=== PATIENT | female | born 1960 | race Caucasian/White ===

== ENCOUNTER 2017-03-31 10:45 | Emergency (ER) | payer MEDICARE, SELFPAY | END 2017-03-31 11:55 | disposition home or self-care (01) | PROVIDERS: Emergency Provider Nurse Practitioner Family; Family Provider Internal Medicine Adolescent Medicine; Visit Provider Nurse Practitioner Family | DX: J06.9 Acute upper respiratory infection, unspecified (principal); E11.9 Type 2 diabetes mellitus without complications; J45.909 Unspecified asthma, uncomplicated; E78.5 Hyperlipidemia, unspecified; I10 Essential (primary) hypertension; Z79.899 Other long term (current) drug therapy; Z87.891 Personal history of nicotine dependence; Z79.4 Long term (current) use of insulin; Z88.5 Allergy status to narcotic agent; Z91.010 Allergy to peanuts; Z91.013 Allergy to seafood | CPT/HCPCS: 87804; 87880; 99201 ==

== ENCOUNTER 2017-05-23 17:29 | Emergency (ER) | payer MEDICARE, MEDICAID, SELFPAY ==
--- NOTE | 2017-05-23 18:53 | XR_ITS ---
XR shoulder LT min 2V HISTORY: Post traumatic pain ITS.REASON: SLIPPED IN MED ORDERING PHYSICIAN: Erica Marroquin PATIENT AGE: 56 years COMPARISON: None FINDINGS: No fracture or dislocation. No lytic or blastic change. There is normal mineralization. The joint spaces are well-preserved. No significant degenerative/arthritic changes. No erosive changes evident. IMPRESSION: Negative, no acute finding
[2017-05-23 18:55] VITALS: BP 130/85; PULSE 91; RESP 18; TEMP 36.6; O2SAT 99; BMI 51.2
--- NOTE | 2017-05-23 19:18 | HMH.EDUTC ---
[facility] [place] Disposition Clinical Impression: Shoulder injury Qualifiers: Encounter type: initial encounter Laterality: left Qualified Code(s): S49.92XA - Unspecified injury of left shoulder and upper arm, initial encounter Disposition: Home, Self-Care Condition on Discharge: Good Instructions: How To Perform RICE (Rest, Ice, Compress, Elevate), DI for Shoulder Pain Additional Instructions: Continue to wear arm sling until you follow up with Dr Ram as advised in the [facility] today RICE as instructed Over the counter Motrin or Tylenol as needed for fever or pain Return if needed If you began to have numbness, tingling or uncontrollable pain or life threatening event go straight to ER Referrals: Clarence Ram MD [Primary Care Provider] - Topher Colón MD [Staff Physician] - Luis Armando Morris MD [Staff Physician] - Time of Disposition: 19:40 Medical Decision Making - Medical Records Medical records reviewed: Yes: I reviewed the patient's medical records. Vital Signs: 05/23/17 18:55 Temperature 97.8 F Temperature Source Temporal Artery Scan Pulse Rate [Right] 91 H Respiratory Rate 18 Blood Pressure [Right Arm] 130/85 Blood Pressure Mean [Right Arm] 100 Blood Pressure Source [Right Arm] Automatic Cuff Blood Pressure Position [Right Arm] Sitting 02 Sat by Pulse Oximetry 99 Oxygen Delivery Method Room Air Orders (Tests/Meds): ORDERS Category Date Time Status Shoulder XR left minimum 2 views [XR shoulder LT min 2V Exams 05/23/17 18:53 Taken ] Stat - Radiology Data #1 Image(s): Shoulder Image Reviewed: Yes I reviewed the patient's radiology image Preliminary Findings: No Fracture Seen No acute findings, will have Radiologist do official read and contact patient if any discrepancies - [place] Inquiry Pt receiving controlled substance: No [place] was queried for this patient: No [facility] [place] HPI - General Stated complaint: AO 05/23/17 Slipped, Inj to left shoulder Mode of Arrival: Ambulatory Source of Information: Patient Limitations: No Limitations Description of Symptoms (Recalled from Triage Doc. by RN): FELL IN MUD, HURT LEFT SHOULDER 1430 HEENT Symptoms (Recalled from RN notes): No Resp Symptoms (Recalled from RN notes): No Skin Symptoms (Recalled from RN notes): No MS Symptoms (Recalled from RN notes): Yes Functional Status (Recalled from RN notes): N - History of Present Illness Provider Complaint: Patient state that earlier today she slipped in the mud and she threw her arm up and now she is having pain in her left shoulder area State that she did not land on the shoulder just threw her arm in the air as she was falling and now she is having pain - Related Data Allergies Allergy/AdvReac Type Severity Reaction Status Date / Time hydromorphone [HYDROMORPHONE] Allergy Mild ITCHING OF Verified 05/23/17 19:00 FACE/NOSE morphine [MORPHINE] Allergy Mild SHAKING Verified 05/23/17 19:00 penicillin G [PENICILLIN G] Allergy Mild Verified 05/23/17 19:00 PEANUTS (FOOD) Allergy Intermediate ITCHING OF Uncoded 04/04/17 14:41 PALMS OF HANDS AND BOTTOM OF FEET FISH,CANNED AdvReac Mild NAUSEA/VOMI Uncoded 04/04/17 14:41 TING - Worker's Comp Is this a Worker's Comp case?: No [facility] History I have reviewed the patient's past medical history: Yes Medical History: Reports:: Diabetes Mellitus Type 2 - *Social History Alcohol Intake: never - Psychiatric History Expresses thoughts of harming self/others: None Suicide Plan Description: No Plan ROS Obtained: Yes All systems reviewed & no additional complaints Physical Exam - General General appearance: alert, in no apparent distress - Respiratory Respiratory exam: Present: normal lung sounds bilaterally. Absent: respiratory distress - Cardiovascular Cardiovascular exam: Present: regular rate, normal rhythm. Absent: JVD - Abdominal Exam Abdominal exam: Present: soft, normal bowel sounds. Absent: distentio
--- NOTE | 2017-05-23 19:29 | ED_ITS ---
[facility] [place] Disposition Clinical Impression: Shoulder injury Qualifiers: Encounter type: initial encounter Laterality: left Qualified Code(s): S49.92XA - Unspecified injury of left shoulder and upper arm, initial encounter Disposition: Home, Self-Care Condition on Discharge: Good Instructions: How To Perform RICE (Rest, Ice, Compress, Elevate), DI for Shoulder Pain Additional Instructions: Continue to wear arm sling until you follow up with Dr Ram as advised in the [facility] today RICE as instructed Over the counter Motrin or Tylenol as needed for fever or pain Return if needed If you began to have numbness, tingling or uncontrollable pain or life threatening event go straight to ER Referrals: Clarence Ram MD [Primary Care Provider] - Topher Colón MD [Staff Physician] - Luis Armando Morris MD [Staff Physician] - Time of Disposition: 19:40 Medical Decision Making - Medical Records Medical records reviewed: Yes: I reviewed the patient's medical records. Vital Signs: 05/23/17 18:55 Temperature 97.8 F Temperature Source Temporal Artery Scan Pulse Rate [Right] 91 H Respiratory Rate 18 Blood Pressure [Right Arm] 130/85 Blood Pressure Mean [Right Arm] 100 Blood Pressure Source [Right Arm] Automatic Cuff Blood Pressure Position [Right Arm] Sitting 02 Sat by Pulse Oximetry 99 Oxygen Delivery Method Room Air Orders (Tests/Meds): ORDERS Category Date Time Status Shoulder XR left minimum 2 views [XR shoulder LT min 2V Exams 05/23/17 18:53 Taken ] Stat - Radiology Data #1 Image(s): Shoulder Image Reviewed: Yes I reviewed the patient's radiology image Preliminary Findings: No Fracture Seen No acute findings, will have Radiologist do official read and contact patient if any discrepancies - [place] Inquiry Pt receiving controlled substance: No [place] was queried for this patient: No [facility] [place] HPI - General Stated complaint: AO 05/23/17 Slipped, Inj to left shoulder Mode of Arrival: Ambulatory Source of Information: Patient Limitations: No Limitations Description of Symptoms (Recalled from Triage Doc. by RN): FELL IN MUD, HURT LEFT SHOULDER 1430 HEENT Symptoms (Recalled from RN notes): No Resp Symptoms (Recalled from RN notes): No Skin Symptoms (Recalled from RN notes): No MS Symptoms (Recalled from RN notes): Yes Functional Status (Recalled from RN notes): N - History of Present Illness Provider Complaint: Patient state that earlier today she slipped in the mud and she threw her arm up and now she is having pain in her left shoulder area State that she did not land on the shoulder just threw her arm in the air as she was falling and now she is having pain - Related Data Allergies Allergy/AdvReac Type Severity Reaction Status Date / Time hydromorphone [HYDROMORPHONE] Allergy Mild ITCHING OF Verified 05/23/17 19:00 FACE/NOSE morphine [MORPHINE] Allergy Mild SHAKING Verified 05/23/17 19:00 penicillin G [PENICILLIN G] Allergy Mild Verified 05/23/17 19:00 PEANUTS (FOOD) Allergy Intermediate ITCHING OF Uncoded 04/04/17 14:41 PALMS OF HANDS AND BOTTOM OF FEET FISH,CANNED AdvReac Mild NAUSEA/VOMI Uncoded 04/04/17 14:41 TING - Worker's Comp Is this a Worker's Comp case?: No H History I have reviewed the patient's past medic
[2017-05-23 19:59] VITALS: BP 132/88; PULSE 90; RESP 18; TEMP 36.1
== END 2017-05-23 20:00 | disposition home or self-care (01) ==
PROVIDERS: Emergency Provider Nurse Practitioner; Family Provider Internal Medicine Adolescent Medicine; PCP Internal Medicine Adolescent Medicine
DX: S49.92XA Unspecified injury of left shoulder and upper arm, initial encounter (principal); W18.39XA Other fall on same level, initial encounter
CPT/HCPCS: 73030; 99202

== ENCOUNTER → 2017-08-07 11:05 | Outpatient (POV) | payer MEDICARE, MEDICAID, SELFPAY | PROVIDERS: Family Provider Internal Medicine Adolescent Medicine; PCP Internal Medicine Adolescent Medicine; Visit Provider Nurse Practitioner Acute Care | DX: Z00.00 Encounter for general adult medical examination without abnormal findings (principal) ==

== ENCOUNTER → 2017-08-15 15:36 | Outpatient (CLI) | payer MEDICARE, MEDICAID, SELFPAY ==
--- NOTE | 2017-08-15 15:39 | MR_ITS ---
MR shoulder LT wo con HISTORY: Left shoulder pain with limited range of motion ITS.REASON: left shoulder pain/ without contrast ORDERING PHYSICIAN: Topher Colón MD PATIENT AGE: 56 years COMPARISON: 05/23/2017 TECHNIQUE: Standard multiplanar multiecho sequences are performed without contrast. LIMITATIONS: Study is limited secondary to patient's body habitus with decreased sbriou-lb-cddjy ratio FINDINGS: There is mild acromioclavicular arthropathy with hypertrophic changes at the acromioclavicular joint and a small amount fluid in the AC joint. There is resultant subacromial stenosis with mild impingement upon the supraspinatus tendon at the musculotendinous junction. There is mild thickening of the supraspinatus tendon but no evidence of tear of the supraspinatus the infraspinatus tendon, subscapularis, and teres minor tendons all appear intact. No obvious labral tear. Small subcortical cystic changes are present in the humeral head posteriorly.. The bicipital tendon is in place. No obvious fracture or dislocation. IMPRESSION: 1. Moderate osteoarthritic changes of the acromioclavicular joint with bony hypertrophy and subacromial stenosis and impingement upon the supraspinatus musculotendinous junction with tendinopathy/tendinosis of the supraspinatus tendon. 2. No evidence of rotator cuff tear or labral tear. 3. Mild subcortical cystic change of the humeral head
== END ==
PROVIDERS: Family Provider Internal Medicine Adolescent Medicine; PCP Internal Medicine Adolescent Medicine; Visit Provider Orthopaedic Surgery
DX: M25.512 Pain in left shoulder (principal)
CPT/HCPCS: 73221

== ENCOUNTER → 2017-12-11 12:30 | Outpatient (CLI) | payer MEDICARE, MEDICAID, SELFPAY ==
[2017-12-11 14:31] LABS: Alanine Aminotransferase 19 U/L (12-78); Albumin Level 3.4 gm/dL (3.4-5.0); Albumin/Globulin Ratio 0.9 (1.1-1.8); Alkaline Phosphatase 112 U/L (46-116); Anion Gap 16.1 mEq/L (5-15); Aspartate Amino Transferase 14 U/L (15-37); Bilirubin,Total 0.4 mg/dL (0.2-1.0); Blood Urea Nitrogen 21 mg/dL (7-18); Calcium 9.5 mg/dL (8.5-10.1); Carbon Dioxide 26 mmol/L (21.0-32.0); Chloride 97 mmol/L (98-107); Chol/HDL Ratio 2.1 (1-3.5); Cholesterol 138 mg/dL (140-200); Creatinine,Serum 0.96 mg/dL (0.55-1.02); Estimated Glomerular Filt Rate 60 ml/min (>60); GFR (African American) 73 ML/MIN (>60); Glucose 165 mg/dL (74-106); HDL Cholesterol 67 mg/dL (29-89); LDL Cholesterol 44 mg/dL (0-130); Potassium 4.1 mmoL/L (3.5-5.1); Sodium 135 mmol/L (136-145); Total Protein,Serum 7.4 gm/dL (6.4-8.2); Triglycerides 135 mg/dL (30-200); VLDL Cholesterol 27 mg/dL (0-40)
== END ==
PROVIDERS: PCP Internal Medicine Adolescent Medicine; Visit Provider Internal Medicine Adolescent Medicine
DX: E78.5 Hyperlipidemia, unspecified (principal)
CPT/HCPCS: 36415; 80053; 80061

== ENCOUNTER → 2017-12-13 19:57 | Outpatient (CLI) | payer MEDICARE, MEDICAID, SELFPAY | PROVIDERS: PCP Nurse Practitioner Family; Visit Provider Nurse Practitioner Family | DX: G47.33 Obstructive sleep apnea (adult) (pediatric) (principal); I10 Essential (primary) hypertension; G47.10 Hypersomnia, unspecified; E66.9 Obesity, unspecified | CPT/HCPCS: 95810 ==

== ENCOUNTER → 2017-12-25 15:13 | Outpatient (CLI) | payer MEDICARE, MEDICAID, SELFPAY ==
--- NOTE | 2017-12-25 15:17 | XR_ITS ---
XR ankle RT min 3V HISTORY: Follow-up fracture ITS.REASON: xrays in cast ORDERING PHYSICIAN: Topher Colón MD PATIENT AGE: 57 years Comparison: 12/17/2017 FINDINGS: There is a cast in place which somewhat obscures fine detail. There is been alignment. Ankle mortise does not appear widened. Old avulsion fracture noted of the tip the lateral malleolus. IMPRESSION: Good alignment of the ankle status post closed reduction of the ankle dislocation
== END ==
PROVIDERS: PCP Internal Medicine Adolescent Medicine; Visit Provider Orthopaedic Surgery
DX: S93.04XA Dislocation of right ankle joint, initial encounter (principal)
CPT/HCPCS: 73610

== ENCOUNTER → 2018-01-22 12:49 | Outpatient (CLI) | payer MEDICARE, MEDICAID, SELFPAY ==
--- NOTE | 2018-01-22 12:52 | XR_ITS ---
XR ankle RT min 3V HISTORY: ITS.REASON: xrays out of cast ORDERING PHYSICIAN: Topher Colón MD PATIENT AGE: 57 years Comparison: None FINDINGS: Cast has been removed. There is good alignment of the bones of the ankle joint with small calcific densities at the tip of the lateral malleolus which may be due to old avulsion fractures. IMPRESSION: Interval removal of the cast otherwise no change
== END ==
PROVIDERS: PCP Internal Medicine Adolescent Medicine; Visit Provider Orthopaedic Surgery
DX: S93.04XA Dislocation of right ankle joint, initial encounter (principal)
CPT/HCPCS: 73610

== ENCOUNTER 2018-01-22 14:49 | Outpatient (RCR) | payer MEDICARE, MEDICAID, SELFPAY | END 2018-01-22 14:50 | disposition home or self-care (01) | LOC: PT 14:49 | PROVIDERS: Family Provider Internal Medicine Adolescent Medicine; PCP Internal Medicine Adolescent Medicine; Visit Provider Orthopaedic Surgery | DX: S93.04XA Dislocation of right ankle joint, initial encounter (principal) | CPT/HCPCS: 97760 ==

== ENCOUNTER → 2018-02-12 09:35 | Outpatient (POV) | payer MEDICARE, MEDICAID, SELFPAY | PROVIDERS: Visit Provider Nurse Practitioner Acute Care | DX: Z00.00 Encounter for general adult medical examination without abnormal findings (principal) ==

== ENCOUNTER → 2018-03-06 12:00 | Outpatient (CLI) | payer MEDICARE, MEDICAID, SELFPAY ==
--- NOTE | 2018-03-06 12:05 | XR_ITS ---
XR ankle RT min 3V HISTORY: Pain following injury, swelling ITS.REASON: follow up right ankle injury/ out of cam walker ORDERING PHYSICIAN: Topher Colón MD PATIENT AGE: 57 years Comparison: 01/22/2018 FINDINGS: There is good alignment with no evidence of dislocation. The talar dome is unremarkable. There is an old fracture of the tip of the lateral malleolus. A thin linear density is noted along the distal aspect of the tibia medially and could be due to an area of periosteal reaction. Otherwise negative. IMPRESSION: Good alignment with no acute fracture. Suspect periosteal reaction along the distal tibia medially
== END ==
PROVIDERS: PCP Internal Medicine Adolescent Medicine; Visit Provider Orthopaedic Surgery
DX: S93.04XA Dislocation of right ankle joint, initial encounter (principal)
CPT/HCPCS: 73610

== ENCOUNTER → 2018-04-02 10:34 | Outpatient (POV) | payer MEDICARE, MEDICAID, SELFPAY | PROVIDERS: Visit Provider Nurse Practitioner Acute Care | DX: Z00.00 Encounter for general adult medical examination without abnormal findings (principal) ==

== ENCOUNTER → 2018-04-25 09:23 | Outpatient (CLI) | payer MEDICARE, MEDICAID, SELFPAY ==
--- NOTE | 2018-04-25 09:30 | XR_ITS ---
XR ankle RT min 3V HISTORY: Follow-up injury and pain ITS.REASON: 4 month follow up right ankle dislocation ORDERING PHYSICIAN: Topher Colón MD PATIENT AGE: 57 years Comparison: 03/06/2018 FINDINGS: There is normal alignment. No acute fracture or dislocation. Separate calcific density is present at the tip of the lateral malleolus and may be due to old injury or accessory center of ossification. Previously noted periosteal reaction along the distal tibia once again noted not significantly changed. IMPRESSION: No change with no acute finding
== END ==
PROVIDERS: PCP Internal Medicine Adolescent Medicine; Visit Provider Orthopaedic Surgery
DX: S93.04XA Dislocation of right ankle joint, initial encounter (principal)
CPT/HCPCS: 73610

== ENCOUNTER 2018-05-16 15:09 | Observation (INO) ==
--- NOTE | 2018-05-16 15:42 | Emergency Department Note ---
ED Disposition Clinical Impression: Colitis, Hypokalemia, Hyponatremia Disposition: Admitted As Inpatient Condition on Discharge: Fair Instructions: DI for Acute Abdomen Referrals: Clarence Ram MD [Primary Care Provider] - - Critical Care Critical Care Time: No Attestation: On , the high probability of a clinically significant, sudden or life threatening deterioration of the following system(s) required my full and direct attention, intervention and personal management. The time I documented below is in addition to time spent performing reported procedures but includes the following listed in this critical care notation. Medical Decision Making - Medical Records Medical records reviewed: Yes: I reviewed the patient's medical records. - [place] Inquiry Pt receiving controlled substance: No [place] was queried for this patient: No Vital Signs: 05/16/18 15:20 05/16/18 18:36 Temperature 98.1 F Temperature Source Oral Pulse Rate [Left Radial] 119 H 105 H Respiratory Rate 18 Blood Pressure [Right Arm] 136/100 H 142/100 H Blood Pressure Mean [Right Arm] 112 114 Blood Pressure Source [Right Arm] Automatic Cuff Blood Pressure Position [Right Arm] Sitting Sitting 02 Sat by Pulse Oximetry 98 Oxygen Delivery Method Room Air - Lab Data Lab results reviewed: Yes: I reviewed the patient's lab results. Lab Results 05/16/18 16:00: WBC 11.9 H, RBC 5.23, Hgb 13.5, Hct 42.1, MCV 80.5 L, MCH 25.9 L , MCHC 32.2, RDW 15.1, Plt Count 462 H, MPV 6.7 L, Neut % (Auto) 79.2, Lymph % (Auto) 16.2, [place] % (Auto) 3.6, Eos % (Auto) 0.8, Baso % (Auto) 0.2, Neut # (Auto) 9.4 H, Lymph # (Auto) 1.9, [place] # (Auto) 0.4, Eos # (Auto) 0.1, Baso # (Auto) 0.0 05/16/18 16:00: Sodium 132 L, Potassium 3.1 L, Chloride 93 L, Carbon Dioxide 28, Anion Gap 14.1, BUN 28 H, Creatinine 1.21 H, Estimated Creat Clear 41, Estimated GFR 46 L, Est GFR ( Amer) 56 L, Glucose 204 H, Calcium 8.9, Total Bilirubin 0.6, AST 17, ALT 17, Alkaline Phosphatase 108, Total Protein 7.4, Albumin 3.0 L, Globulin 4.4 H, Albumin/Globulin Ratio 0.7 L Result diagrams: 05/16/18 16:00 05/16/18 16:00 Orders (Tests/Meds): ED MEDICATIONS Generic Name Dose Route Start Last Admin Trade Name Ginoq PRN Reason Stop Dose Admin Lactated Ringer's 2,000 mls @ 2,000 mls/hr 05/16/18 18:30 Lactated Ringer's 1000 Ml Bag IV 05/16/18 19:29 .Q1H KENDY Sodium Chloride 10 ml 05/16/18 15:29 05/16/18 16:29 Saline Flush 10ml Syringe IV 06/15/18 15:28 10 ml NEEDED PRN Administration Maintain IV Site Discontinued Medications Generic Name Dose Route Start Last Admin Trade Name Pro PRN Reason Stop Dose Admin Dexamethasone Sodium Phosphate 20 mg 05/16/18 18:30 Decadron 4mg/Ml 5ml Mdv IV 05/16/18 18:31 ONCE ONE Diphenhydramine HCl 25 mg 05/16/18 16:11 05/16/18 16:29 Benadryl 50mg/1ml Vial IV 05/16/18 16:12 25 mg ONCE ONE Administration Iopamidol 75 ml 05/16/18 17:03 05/16/18 17:04 [id number]; 75ml Vial IV 05/16/18 17:04 75 ml ONCE ONE Administration Protocol Potassium Chloride 60 meq 05/16/18 18:28 Potassium Chloride 20meq/15ml Solution Udc PO 05/16/18 18:29 ONCE ONE Potassium Chloride 60 meq 05/16/18 18:29 05/16/18 18:44 Klor-Con 20meq Tablet PO 05/16/18 18:30 60 meq ONCE ONE Administration Promethazine HCl 12.5 mg 05/16/18 16:10 05/16/18 16:29 Phenergan 25mg/Ml 1ml Vial IV 05/16/18 16:11 12.5 mg ONCE ONE Administration Sodium Chloride 25 ml 05/16/18 16:10 05/16/18 17:05 Sod Chlor 0.9% 25ml Bag IV 05/16/18 16:11 25 ml ONCE ONE Administration Sodium Chloride 10 ml 05/16/18 17:03 05/16/18 17:04 Rad-Saline Flush 10ml Syringe IV 05/16/18 17:04 10 ml ONCE ONE Administration ORDERS Category Date Time Status CT abdomen pelvis w con Stat Cat Scan 05/16/18 15:30 Taken Urinalysis and Microscopic Stat Lab 05/16/18 15:29 Ordered Medical Decision Narrative: Eventual diagnosis gastroenteritis, colitis, diverticulitis, Crohn's disease, ulcerative colitis, CAT scan consistent with small bowel inflammation consistent with either inflammatory process of Crohn's disease or infection Patient is hypokalemic hyponatremic will discuss with Dr. Richmond for admission discussed with Dr. García covering General Adult HPI - General Chief complaint: Abdominal Pain Stated complaint: abdominal pain, vomitting x 3 days Time Seen by Provider: 05/16/18 15:20 Mode of Arrival: Ambulatory Limitations: No Limitations Description of Symptoms (Recalled from ER Triage Doc. by RN): to ed per pvt car with c/o crampy abd pain starting monday,vomiting monday currently taking phenergan states started with diarrhea today. pt states GI is working her up for ? crohn's or IBS.. pt denies any fever, chills, sob chest pain - History of Present Illness HPI narrative: 57-year-old female with history of previous bowel obstructions treated by NG tube and admission also history of esophageal stricture due for dilatation complains of 2 days of abdominal discomfort and diarrhea as well as nausea similar as her previous episode in 2016. Family history of Crohn's disease - Related Data Home Medications Medication Instructions Recorded Confirmed Exenatide Microspheres [Bydureon 2 mg SQ WEEKLY 08/02/17 05/16/18 Pen] Levalbuterol HCl 0.31 ml INHALATION DAILY 08/02/17 05/16/18 Omeprazole [Omeprazole 10mg Cap] 10 mg PO DAILY 08/02/17 05/16/18 Propylene Glycol/Peg 400/Pf 1 each OP DAILY 08/02/17 05/16/18 [Systane 0.3-0.4% Eye Drops] metOLazone [Metolazone 5mg Tab] 5 mg PO DAILY 08/02/17 05/16/18 Furosemide [Furosemide 20mg Tab] 20 mg PO DAILY 12/17/17 05/16/18 Insulin Regular, Human [Humulin R] 100 unit IJ DAILY 12/17/17 05/16/18 Lisinopril [Lisinopril 2.5mg Tab] 2.5 mg PO DAILY 12/17/17 05/16/18 Lovastatin 20 mg PO DAILY 12/17/17 05/16/18 Metformin HCl 1,000 mg PO DAILY 12/17/17 05/16/18 raNITIdine HCl [Ranitidine HCl] 300 mg PO DAILY 12/17/17 05/16/18 Previous Rx's Medication Instructions Recorded Promethazine HCl [Phenergan 12.5mg 12.5 mg PO Q8H PRN #10 tab 08/02/17 tablet] Allergies Allergy/AdvReac Type Severity Reaction Status Date / Time hydromorphone [HYDROMORPHONE] Allergy Mild ITCHING OF Verified 04/25/18 10:04 FACE/NOSE morphine [MORPHINE] Allergy Mild SHAKING Verified 04/25/18 10:04 penicillin G [PENICILLIN G] Allergy Mild Verified 04/25/18 10:04 PEANUTS (FOOD) Allergy Intermediate ITCHING OF Uncoded 08/10/17 10:57 PALMS OF HANDS AND BOTTOM OF FEET FISH,CANNED AdvReac Mild NAUSEA/VOMI Uncoded 08/10/17 10:57 TING [facility] History - Hepatitis A Screen Drug use history?: No High risk sexual behaviors?: No History of sexually transmitted infection?: No Currently employed?: No Childcare worker?: No Do you have indoor plumbing?: Yes Do you have electricity?: Yes Attestation statement:: This patient has been screened for Hepatitis A risk factors. I have reviewed the patient's past medical history: Yes Medical History: Reports:: Diabetes Mellitus Type 2 Other Medical History: Reports: Arthritis Laterality Cases: Bilateral: Other Other Surgeries: Yes: Cholecystectomy, Hysterectomy-Total - Social History Smoking Status: Never smoker Tobacco Type: cigarettes Alcohol Intake: never Alcohol Intake Frequency:: other Occupational Status: other - Psychiatric History Expresses thoughts of harming self/others: None Suicide Plan Description: No Plan Family Hx:: Heart Attack, Diabetes ROS Obtained: Yes All systems reviewed & no additional complaints - Gastrointestinal Gastrointestingal: Reports: as per HPI, abdominal pain, bloating, change in bowel habits, diarrhea Physical Exam - General General appearance: alert, in no apparent distress Comment: Morbidly obese pleasant female in mild distress - Head Head exam: atraumatic, normocephalic, normal inspection - Eye Eye exam: Present: normal appearance, PERRL, EOMI - ENT ENT exam: Present: normal exam, normal oropharynx, mucous membranes moist, TM's normal bilaterally, normal external ear exam - Neck Neck exam: Present: normal inspection, full ROM, trachea midline. Absent: meningismus, lymphadenopathy - Chest Chest inspection: Present: normal inspection, symmetric chest wall rise. Absent: tenderness - Respiratory Respiratory exam: Present: normal lung sounds bilaterally. Absent: respiratory distress - Cardiovascular Cardiovascular exam: Present: regular rate, normal rhythm. Absent: JVD - Abdominal Exam Abdominal exam: Present: soft, tenderness (Mild tenderness over the lower abdomen suprapubic area no guarding or rebound), normal bowel sounds. Absent: distention, guarding - Extremities Exam Extremities exam: Present: normal inspection, full ROM, normal capillary refill. Absent: calf tenderness - Back Exam Back exam: Present: normal inspection. Absent: tenderness - Neurological Exam Neurological exam: Present: alert, oriented X3 - Psychiatric Psychiatric exam: Present: normal affect, normal mood - Skin Skin exam: Present: warm, dry, intact, normal color - Lymphatic Lymphatic Findings: no adenopathy
[2018-05-16 16:03] LABS: Basophils % 0.2 % (0.1-2.0); Eosinophils # 0.1 K/mm3 (0.0-0.4); Eosinophils % 0.8 % (0.1-12.0); Hematocrit 42.1 % (37.0-47.0); Hemoglobin 13.5 g/dL (12.2-16.2); Lymphocytes # 1.9 K/mm3 (0.7-4.5); Lymphocytes % 16.2 % (10-50); Mean Corpuscular HGB Conc 32.2 g/dL (31.8-35.4); Mean Corpuscular Hemoglobin 25.9 pg (27.0-31.2); Mean Corpuscular Volume 80.5 fl (81-99); Mean Platelet Volume 6.7 fl (7.4-10.4); Monocytes # 0.4 K/mm3 (0.1-1.0); Monocytes % 3.6 % (1.7-9.3); Neutrophils # 9.4 K/mm3 (1.8-7.8); Neutrophils % 79.2 % (37.0-80.0); Platelet Count 462 K/mm3 (142-424); Red Blood Count 5.23 M/mm3 (4.20-5.40); Red Cell Distribution Width 15.1 % (11.5-17.5); White Blood Count 11.9 K/mm3 (4.8-10.8)
[2018-05-16 16:17] LABS: Albumin/Globulin Ratio 0.7 (1.1-1.8); Anion Gap 14.1 mEq/L (5-15); Bilirubin,Total 0.6 mg/dL (0.2-1.0); Calcium 8.9 mg/dL (8.5-10.1); Globulin 4.4 gm/dl (1.3-3.2); Potassium 3.1 mmoL/L (3.5-5.1); Total Protein,Serum 7.4 gm/dL (6.4-8.2)
--- NOTE | 2018-05-17 07:20 | History & Physical Report ---
*Admission Date: 05/17/18 *Chief complaint: Abdominal pain and vomiting *History of present illness: 57-year-old white female with history of diabetes, hypertension, morbid obesity and chronic GERD and chronic GI disease with recurrent colitis episodes, who also has esophageal strictures, who in fact was scheduled for EGD with esophageal dilatation tomorrow on May [address] Del Cid. She came to the emergency department late in the evening of 05/16/18 with abdominal pain, swelling and vomiting along with nausea and significant diarrhea. Found to be hypokalemic, found to have prerenal azotemia, dehydrated and CT scan showed evidence of colitis. Admitted to hospital for IV fluids and antibiotics. This morning she feels somewhat better and has not vomited. Continues to have diarrhea. [facility] History I have reviewed the patient's past medical history: Yes Medical History: Reports:: Diabetes Mellitus Type 2, Hyperlipidemia, Hypertension Denies:: Cancer, MRSA Have you ever received a pneumonia vaccine?: Yes Have you received a flu vaccine this season?: Yes Other Medical History: Reports: Anemia, Arthritis Laterality Cases: Bilateral: Other Other Surgeries: Yes: Cholecystectomy, Hysterectomy-Total Amputation: No Fractures: Yes - *Social History Educational Level: Attended College Smoking Status: Former smoker Tobacco Type: cigarettes # Packs/Day (cigarettes): 1 #Yrs smoked (if former smoker): 40 Alcohol Intake: never Alcohol Intake Frequency:: other Occupational Status: other Housing: apartment Household Members: none Travel in the last 8 weeks: None - Psychiatric History Expresses thoughts of harming self/others: None Suicide Plan Description: No Plan *Family Hx:: Heart Attack, Diabetes Review of Systems - Review of Systems Review of systems:: pertinent systems reviewed and negative unless documented below - Constitutional Reports anorexia, Reports increased appetite, Denies body ache(s), Denies headache(s) - Eyes Denies blind spots, Denies blurry vision, Denies change in vision - ENT Denies abnormal hearing, Denies bleeding gums - *Cardiovascular Denies chest pain, Denies excessive sweating, Denies shortness of breath, Denies shortness of breath with activity - *Respiratory Denies change in phlegm color, Denies chest congestion - *Gastrointestinal Reports abdominal pain, Reports nausea, Denies coffee ground vomit, Denies constipation, Denies excessive passing of gas, Denies vomiting blood, Denies black, tarry stools - *Genitourinary Denies abnormal periods - *Musculoskeletal Denies abnormal walking, Denies joint pain - *Neurologic Denies abnormal walking - Psychiatric Denies abnormal sleep pattern, Denies lack of enjoyment - Endocrine Denies cold intolerance - Hematologic/Lymphatic Denies easy bleeding Meds Home Medications Medication Instructions Recorded Confirmed Type Exenatide Microspheres [Bydureon 2 mg SQ WEEKLY 08/02/17 05/16/18 History Pen] Levalbuterol HCl 0.31 ml INHALATION DAILY 08/02/17 05/16/18 History Omeprazole [Omeprazole 10mg Cap] 10 mg PO DAILY 08/02/17 05/16/18 History Promethazine HCl [Phenergan 12.5mg 12.5 mg PO Q8H PRN #10 tab 08/02/17 05/16/18 Rx tablet] Propylene Glycol/Peg 400/Pf 1 each OP DAILY 08/02/17 05/16/18 History [Systane 0.3-0.4% Eye Drops] metOLazone [Metolazone 5mg Tab] 5 mg PO DAILY 08/02/17 05/16/18 History Furosemide [Furosemide 20mg Tab] 20 mg PO DAILY 12/17/17 05/16/18 History Insulin Regular, Human [Humulin R] 100 unit IJ DAILY 12/17/17 05/16/18 History Lisinopril [Lisinopril 2.5mg Tab] 2.5 mg PO DAILY 12/17/17 05/16/18 History Lovastatin 20 mg PO DAILY 12/17/17 05/16/18 History Metformin HCl 1,000 mg PO DAILY 12/17/17 05/16/18 History raNITIdine HCl [Ranitidine HCl] 300 mg PO DAILY 12/17/17 05/16/18 History Allergies Allergy/AdvReac Type Severity Reaction Status Date / Time hydromorphone [HYDROMORPHONE] Allergy Mild ITCHING OF Verified 04/25/18 10:04 FACE/NOSE morphine [MORPHINE] Allergy Mild SHAKING Verified 04/25/18 10:04 penicillin G [PENICILLIN G] Allergy Mild Unknown Verified 05/17/18 00:18 allergy reaction PEANUTS (FOOD) Allergy Intermediate ITCHING OF Uncoded 08/10/17 10:57 PALMS OF HANDS AND BOTTOM OF FEET FISH,CANNED AdvReac Mild NAUSEA/VOMI Uncoded 08/10/17 10:57 TING Exam Vital signs and Labs for Last 24 Hours: Temp Pulse Resp BP Pulse Ox 98.6 F 112 H 20 125/65 94 L 05/17/18 04:00 05/17/18 04:00 05/17/18 04:00 05/17/18 04:00 05/17/18 04:00 Laboratory Results - last 24 hr 05/16/18 16:00: WBC 11.9 H, RBC 5.23, Hgb 13.5, Hct 42.1, MCV 80.5 L, MCH 25.9 L , MCHC 32.2, RDW 15.1, Plt Count 462 H, MPV 6.7 L, Neut % (Auto) 79.2, Lymph % (Auto) 16.2, [place] % (Auto) 3.6, Eos % (Auto) 0.8, Baso % (Auto) 0.2, Neut # (Auto) 9.4 H, Lymph # (Auto) 1.9, [place] # (Auto) 0.4, Eos # (Auto) 0.1, Baso # (Auto) 0.0 05/16/18 16:00: Sodium 132 L, Potassium 3.1 L, Chloride 93 L, Carbon Dioxide 28, Anion Gap 14.1, BUN 28 H, Creatinine 1.21 H, Estimated Creat Clear 41, Estimated GFR 46 L, Est GFR ( Amer) 56 L, Glucose 204 H, Calcium 8.9, Total Bilirubin 0.6, AST 17, ALT 17, Alkaline Phosphatase 108, Total Protein 7.4, Albumin 3.0 L, Globulin 4.4 H, Albumin/Globulin Ratio 0.7 L 05/17/18 00:51: POC Glucose 275 H 05/17/18 06:22: POC Glucose 303 H* I & O for Last 24 hours: Intake & Output 05/14/18 05/15/18 05/16/18 05/17/18 11:59 11:59 11:59 11:59 Intake Total 688 / 688 Balance 688 / 688 Weight 279 lb 4 oz Narrative: Patient is pleasant. Talkative. Alert, oriented x3. No scleral icterus. No jaundice. Abdomen morbidly obese which limits her exam accuracy but she has a soft abdomen with bowel sounds, there is some diffuse low-grade tenderness in the left upper and lower quadrants. No CVA tenderness. Lung alicea are clear. Heart rate regular without murmurs. No JVD. Oropharynx clear and moist. Cranial nerves intact, moves all extremities well. Assessment and Plan (1) Body mass index (BMI) greater than 50 Current visit: Yes Status: Acute Category: Medical Complicates all aspects of her care. (2) Diabetes mellitus type 2, insulin dependent Current visit: Yes Status: Acute Category: Medical Code(s): E11.9 - Type 2 diabetes mellitus without complications; Z79.4 - bed bug exterminator (current) use of insulin Sliding scale insulin. Patient currently n.p.o. Cautiously advance to clear liquids (3) Colitis Current visit: Yes Status: Acute Category: Medical Code(s): K52.9 - Noninfective gastroenteritis and colitis, unspecified Patient already feels better. Try to get PCR assessment. (4) Hypokalemia Current visit: Yes Status: Acute Category: Medical Code(s): E87.6 - Hypokalemia Follow labs today (5) Hyponatremia Current visit: Yes Status: Acute Category: Medical Code(s): E87.1 - Hypo- osmolality and hyponatremia (6) Esophageal stricture Current visit: Yes Status: Acute Category: Medical Code(s): K22.2 - Esophageal obstruction We will see if Dr Del Cid can evaluate patient tomorrow.
[2018-05-17 07:23] LABS: Hematocrit 38.5 % (37.0-47.0); Hemoglobin 12.2 g/dL (12.2-16.2); Mean Corpuscular HGB Conc 31.6 g/dL (31.8-35.4); Mean Corpuscular Hemoglobin 25.7 pg (27.0-31.2); Mean Corpuscular Volume 81.5 fl (81-99); Mean Platelet Volume 6.9 fl (7.4-10.4); Monocytes # 0.1 K/mm3 (0.1-1.0); Monocytes % 1.2 % (1.7-9.3); Neutrophils # 6.4 K/mm3 (1.8-7.8); Neutrophils % 85.7 % (37.0-80.0); Platelet Count 378 K/mm3 (142-424); Red Blood Count 4.73 M/mm3 (4.20-5.40); Red Cell Distribution Width 15.1 % (11.5-17.5); White Blood Count 7.4 K/mm3 (4.8-10.8)
--- NOTE | 2018-05-17 07:36 | Pharmacy Consult Notes ---
[facility] Pharmacy VTE Monitoring - Patient Demographics Admission date: 05/16/18 Report Date: 05/17/18 Time: 07:36 Allergies/Adverse Reactions: Patient Allergies hydromorphone [HYDROMORPHONE] Allergy (Mild, Verified 04/25/18 10:04) ITCHING OF FACE/NOSE morphine [MORPHINE] Allergy (Mild, Verified 04/25/18 10:04) SHAKING penicillin G [PENICILLIN G] Allergy (Mild, Verified 05/17/18 00:18) Unknown allergy reaction PEANUTS (FOOD) Allergy (Intermediate, Uncoded 08/10/17 10:57) ITCHING OF PALMS OF HANDS AND BOTTOM OF FEET FISH,CANNED Adverse Reaction (Mild, Uncoded 08/10/17 10:57) NAUSEA/VOMITING Height: 1.57 m Weight: 126.666 kg Patient Problems: Current Active Problems Colitis (Acute) Hypokalemia (Acute) Hyponatremia (Acute) Body mass index (BMI) greater than 50 (Acute) Diabetes mellitus type 2, insulin dependent (Acute) Esophageal stricture (Acute) - VTE Risk Labs: VTE Related Lab Results Hgb 12.2 g/dL (12.2-16.2) 05/17/18 07:05 Hct 38.5 % (37.0-47.0) 05/17/18 07:05 Plt Count 378 K/mm3 (142-424) 05/17/18 07:05 BUN 28 mg/dL (7-18) H 05/16/18 16:00 Creatinine 1.21 mg/dL (0.55-1.02) H 05/16/18 16:00 Estimated Creat Clear 41 mL/min (50-200) 05/16/18 16:00 Was VTE Risk Assessment Performed: Yes VTE Score: 7 VTE Risk Level: Moderate Risk - Prophylaxis VTE Prophylaxis Ordered?: Yes Types of VTE Prophylaxis: TEDS Knee High Location of Applied Device: Bilateral Lower Extremeties - VTE Diagnosis Confirmed Treatment or plan recommended: Continue Current Treatment
[2018-05-17 07:40] LABS: Albumin Level 2.7 gm/dL (3.4-5.0); Albumin/Globulin Ratio 0.7 (1.1-1.8); Anion Gap 11.7 mEq/L (5-15); Bilirubin,Total 0.5 mg/dL (0.2-1.0); Calcium 8.8 mg/dL (8.5-10.1); Globulin 4.1 gm/dl (1.3-3.2); Potassium 3.7 mmoL/L (3.5-5.1); Total Protein,Serum 6.8 gm/dL (6.4-8.2)
[2018-05-17 12:16] LABS: Lymphocytes % 13 % (10-50); Monocytes % 1 % (2-9); Neutrophils % 86 % (42-76); Total Cells Counted 100
[2018-05-17 12:17] LABS: Hypochromasia 1+
[2018-05-18 07:05] LABS: Basophils % 0.1 % (0.1-2.0); Eosinophils # 0.1 K/mm3 (0.0-0.4); Eosinophils % 0.7 % (0.1-12.0); Hematocrit 34.6 % (37.0-47.0); Hemoglobin 11.4 g/dL (12.2-16.2); Lymphocytes # 2.6 K/mm3 (0.7-4.5); Lymphocytes % 23.1 % (10-50); Mean Corpuscular HGB Conc 32.9 g/dL (31.8-35.4); Mean Corpuscular Hemoglobin 26.6 pg (27.0-31.2); Mean Corpuscular Volume 80.7 fl (81-99); Mean Platelet Volume 7.4 fl (7.4-10.4); Monocytes # 0.5 K/mm3 (0.1-1.0); Neutrophils # 8.2 K/mm3 (1.8-7.8); Neutrophils % 72.1 % (37.0-80.0); Platelet Count 388 K/mm3 (142-424); Red Blood Count 4.29 M/mm3 (4.20-5.40); White Blood Count 11.3 K/mm3 (4.8-10.8)
--- NOTE | 2018-05-18 07:55 | Progress Note ---
Internal Medicine - PN: Subj *Date: 05/18/18 *Time: 07:54 Interval history: Patient feels little better. Is hungry. Is n.p.o. for possible EGD today No vomiting. Stools have become more normal. Exam Vital signs and Labs for Last 24 Hours: Temp Pulse Resp BP Pulse Ox 97.9 F 93 H 20 107/65 L 94 L 05/18/18 04:00 05/18/18 04:00 05/18/18 04:00 05/18/18 04:00 05/18/18 04:00 Laboratory Results - last 24 hr 05/17/18 07:05: Total Counted 100, Neutrophils % (Manual) 86 H, Lymphocytes % (Manual) 13, Monocytes % (Manual) 1 L, Platelet Estimate Normal, Hypochromasia 1+ 05/17/18 11:05: POC Glucose 365 H* 05/17/18 15:35: Stl Aeromonas (PCR) Not detected, Stl C. cayetanensis PCR Not detected, Stool Rotavirus (PCR) Not detected, Stl Adenov F 40/41 PCR Not detected, Stool Astrovirus (PCR) Not detected, Stool Campylobacter PCR Not detected, Stl C.difficile Tox PCR Not detected, Stool Cryptosporidium PCR Not detected, Stl E.coli Shiga Tox PCR Not detected, Stool E coli O157 PCR Not detected, Stl Enterotoxigenic E PCR Not detected, Stool EPEC (PCR) Not detected, Stool EAEC (PCR) Not detected, Stl E. histolytica PCR Not detected, Stool Giardia Lamblia PCR Not detected, Stool Salmonella PCR Not detected, Stool Sapovirus (PCR) Not detected, Stl P. shigelloides PCR Not detected, Stl Shigella/EIEC PCR Not detected, St Y.enterocolitica PCR Not detected, Stool Vibrio (PCR) Not detected, Stl Vibrio cholerae PCR Not detected, Stl Norovirus GI/GII PCR Not detected 05/17/18 16:42: POC Glucose 266 H 05/17/18 20:14: POC Glucose 237 H 05/18/18 05:27: POC Glucose 187 H 05/18/18 06:50: WBC 11.3 H D, RBC 4.29, Hgb 11.4 L, Hct 34.6 L, MCV 80.7 L, MCH 26.6 L, MCHC 32.9, RDW 15.0, Plt Count 388, MPV 7.4, Neut % (Auto) 72.1, Lymph % (Auto) 23.1, [place] % (Auto) 4.0, Eos % (Auto) 0.7, Baso % (Auto) 0.1, Neut # (Auto) 8.2 H, Lymph # (Auto) 2.6, [place] # (Auto) 0.5, Eos # (Auto) 0.1, Baso # (Auto) 0.0 I & O for Last 24 hours: Intake & Output 05/15/18 05/16/18 05/17/18 05/18/18 11:59 11:59 11:59 11:59 Intake Total 1168 / 1168 5006 / 5006 Output Total 1150 / 1150 Balance 1168 / 1168 3856 / 3856 Weight 279 lb 4 oz 281 lb 7 oz Narrative: Patient is pleasant, alert. Oriented x3. Vital signs normal. Lungs are clear. Heart rate regular. Abdomen soft, very minimal tenderness in the left lower quadrant. Nicely improved over yesterday. No rash or stigmata of systemic disease. Assessment and Plan (1) Body mass index (BMI) greater than 50 Current visit: Yes Status: Acute Category: Medical (2) Diabetes mellitus type 2, insulin dependent Current visit: Yes Status: Acute Category: Medical Code(s): E11.9 - Type 2 diabetes mellitus without complications; Z79.4 - terminologist (current) use of insulin (3) Colitis Current visit: Yes Status: Acute Category: Medical Code(s): K52.9 - Noninfective gastroenteritis and colitis, unspecified (4) Hypokalemia Current visit: Yes Status: Acute Category: Medical Code(s): E87.6 - Hypokalemia (5) Hyponatremia Current visit: Yes Status: Acute Category: Medical Code(s): E87.1 - Hypo- osmolality and hyponatremia (6) Esophageal stricture Current visit: Yes Status: Acute Category: Medical Code(s): K22.2 - Esophageal obstruction - Assessment and plan all Dx Assessment and Plan for all problems:: Electrolyte improving. Patient is scheduled for EGD for esophageal dilatation today. After this procedure she may be advanced in regards to her diet and possible discharge if tolerates diet well.
[2018-05-18 08:29] LABS: Albumin Level 2.6 gm/dL (3.4-5.0); Albumin/Globulin Ratio 0.7 (1.1-1.8); Bilirubin,Total 0.4 mg/dL (0.2-1.0); Calcium 8.8 mg/dL (8.5-10.1); Globulin 3.9 gm/dl (1.3-3.2); Total Protein,Serum 6.5 gm/dL (6.4-8.2)
--- NOTE | 2018-05-18 09:20 | Progress Note ---
[facility] Anesthesia Checklist - Patient Identification Patient Identification: Arm Band, Verbal (Name & ) - Structural Data Admitted From: Home Planned Operative Procedure/s: EGD Consent for Planned Operative Procedure(s) Verified: Yes Verified Documents: Surgical Consent, History and Physical - NPO Status Verified Time NPO: 00:00 - Additional verifications Anesthesia Reactions: No - Airway Assessment C-Spine Mobility Assessed: Yes TMJ Mobility Assessed: Yes Dentition: Poor Dentition (missing teeth) - Neurological Assessment Level of Consciousness: Awake Hx Seizures: No Numbness or tingling in extremities: No - Anesthesia Plan Anesthesia Risk discussed: Yes Anesthesia Plan: Verified ASA Class: III Anesthesia Type: MAC [facility] History I have reviewed the patient's past medical history: Yes Medical History: Reports:: Asthma, Depression, Diabetes Mellitus Type 2, Gastroesophageal Reflux Disease(GERD), Hyperlipidemia, Hypertension, Migraine Denies:: Cancer, MRSA Have you ever received a pneumonia vaccine?: Yes Have you received a flu vaccine this season?: Yes Other Medical History: Reports: Anemia, Arthritis Comment:: super morbid obesity Laterality Cases: Bilateral: Other Other Surgeries: Yes: Cholecystectomy, Hysterectomy-Total Amputation: No Fractures: Yes - *Social History Educational Level: Attended College Smoking Status: Former smoker (quit 2015) Tobacco Type: cigarettes # Packs/Day (cigarettes): 1 #Yrs smoked (if former smoker): 40 Alcohol Intake: never Alcohol Intake Frequency:: other Occupational Status: other Housing: apartment Household Members: none Travel in the last 8 weeks: None - Psychiatric History Expresses thoughts of harming self/others: None Suicide Plan Description: No Plan *Family Hx:: Heart Attack, Diabetes
--- NOTE | 2018-05-18 13:48 | Discharge Summary ---
General - General Admission date:: 05/16/18 Discharge date: 05/18/18 HPI HPI: 57-year-old white female with history of diabetes, hypertension, morbid obesity and chronic GERD and chronic GI disease with recurrent colitis episodes, who also has esophageal strictures, who in fact was scheduled for EGD with esophageal dilatation tomorrow on May [address] Del Cid. She came to the emergency department late in the evening of 05/16/18 with abdominal pain, swelling and vomiting along with nausea and significant diarrhea. Found to be hypokalemic, found to have prerenal azotemia, dehydrated and CT scan showed evidence of colitis. Admitted to hospital for IV fluids and antibiotics. This morning she feels somewhat better and has not vomited. Continues to have diarrhea. Hospital Course Hospital Course: Admitted and rehydrated. PCR from stool negative. EGD done today for stricture - see GI notes After EGD ate well w/o pain, nausea or vomiting. Exam normalized. Will DC home on regular meds, low fat diet, and short term f/u. No abx or steroids given lack of evidence of bacterial infection. Objective Vital signs: Temp Pulse Resp BP Pulse Ox 97.9 F 82 18 118/67 97 05/18/18 10:16 05/18/18 10:16 05/18/18 10:16 05/18/18 10:16 05/18/18 10:16 no acute distress, morbidly obese - *Routine HEENT Exam Head: Present: normocephalic, atraumatic Eye: Present: EOMI, PERRL. Absent: scleral injection ENT: Present: mucous membranes moist - *Routine Respiratory Exam Present: CTA bilaterally. Absent: accessory muscle use, decreased breath sounds - *Routine Cardiovascular Exam Present: RRR, Normal S1, Normal S2 - *Routine Abdominal Exam Present: soft, normoactive bowel sounds. Absent: tenderness, distended - *Routine Extremities Exam Absent: cyanosis, clubbing, edema, full ROM - *Routine Skin Exam Present: intact, dry. Absent: cyanosis, erythema - *Routine Neurological Exam Present: alert, oriented X3, CN II-XII intact Results Labs on day of discharge: Labs from last 24 hours 05/18/18 05/18/18 05/18/18 10:55 08:00 06:50 WBC 11.3 H D RBC 4.29 Hgb 11.4 L Hct 34.6 L MCV 80.7 L MCH 26.6 L MCHC 32.9 RDW 15.0 Plt Count 388 MPV 7.4 Neut % (Auto) 72.1 Lymph % (Auto) 23.1 [place] % (Auto) 4.0 Eos % (Auto) 0.7 Baso % (Auto) 0.1 Neut # (Auto) 8.2 H Lymph # (Auto) 2.6 [place] # (Auto) 0.5 Eos # (Auto) 0.1 Baso # (Auto) 0.0 Sodium 136 Potassium 3.0 L Chloride 98 Carbon Dioxide 29 Anion Gap 12.0 BUN 19 H Creatinine 0.76 D Estimated Creat Clear 65 Estimated GFR 79 Est GFR ( Amer) 95 D Glucose 160 H POC Glucose 163 H Calcium 8.8 Total Bilirubin 0.4 AST 17 D ALT 18 Alkaline Phosphatase 88 Total Protein 6.5 Albumin 2.6 L Globulin 3.9 H Albumin/Globulin Ratio 0.7 L Stl Aeromonas (PCR) Stl C. cayetanensis PCR Stool Rotavirus (PCR) Stl Adenov F 40 PCR Stool Astrovirus (PCR) Stool Campylobacter PCR Stl C.difficile Tox PCR Stool Cryptosporidium PCR Stl E.coli Shiga Tox PCR Stool E coli O157 PCR Stl Enterotoxigenic E PCR Stool EPEC (PCR) Stool EAEC (PCR) Stl E. histolytica PCR Stool Giardia Lamblia PCR Stool Salmonella PCR Stool Sapovirus (PCR) Stl P. shigelloides PCR Stl Shigella/EIEC PCR St Y.enterocolitica PCR Stool Vibrio (PCR) Stl Vibrio cholerae PCR Stl Norovirus GI/GII PCR 05/18/18 05/17/18 05/17/18 05:27 20:14 16:42 WBC RBC Hgb Hct MCV MCH MCHC RDW Plt Count MPV Neut % (Auto) Lymph % (Auto) [place] % (Auto) Eos % (Auto) Baso % (Auto) Neut # (Auto) Lymph # (Auto) [place] # (Auto) Eos # (Auto) Baso # (Auto) Sodium Potassium Chloride Carbon Dioxide Anion Gap BUN Creatinine Estimated Creat Clear Estimated GFR Est GFR ( Amer) Glucose POC Glucose 187 H 237 H 266 H Calcium Total Bilirubin AST ALT Alkaline Phosphatase Total Protein Albumin Globulin Albumin/Globulin Ratio Stl Aeromonas (PCR) Stl C. cayetanensis PCR Stool Rotavirus (PCR) Stl Adenov F 40/41 PCR Stool Astrovirus (PCR) Stool Campylobacter PCR Stl C.difficile Tox PCR Stool Cryptosporidium PCR Stl E.coli Shiga Tox PCR Stool E coli O157 PCR Stl Enterotoxigenic E PCR Stool EPEC (PCR) Stool EAEC (PCR) Stl E. histolytica PCR Stool Giardia Lamblia PCR Stool Salmonella PCR Stool Sapovirus (PCR) Stl P. shigelloides PCR Stl Shigella/EIEC PCR St Y.enterocolitica PCR Stool Vibrio (PCR) Stl Vibrio cholerae PCR Stl Norovirus GI/GII PCR 05/17/18 15:35 WBC RBC Hgb Hct MCV MCH MCHC RDW Plt Count MPV Neut % (Auto) Lymph % (Auto) [place] % (Auto) Eos % (Auto) Baso % (Auto) Neut # (Auto) Lymph # (Auto) [place] # (Auto) Eos # (Auto) Baso # (Auto) Sodium Potassium Chloride Carbon Dioxide Anion Gap BUN Creatinine Estimated Creat Clear Estimated GFR Est GFR ( Amer) Glucose POC Glucose Calcium Total Bilirubin AST ALT Alkaline Phosphatase Total Protein Albumin Globulin Albumin/Globulin Ratio Stl Aeromonas (PCR) Not detected Stl C. cayetanensis PCR Not detected Stool Rotavirus (PCR) Not detected Stl Adenov F 40/41 PCR Not detected Stool Astrovirus (PCR) Not detected Stool Campylobacter PCR Not detected Stl C.difficile Tox PCR Not detected Stool Cryptosporidium PCR Not detected Stl E.coli Shiga Tox PCR Not detected Stool E coli O157 PCR Not detected Stl Enterotoxigenic E PCR Not detected Stool EPEC (PCR) Not detected Stool EAEC (PCR) Not detected Stl E. histolytica PCR Not detected Stool Giardia Lamblia PCR Not detected Stool Salmonella PCR Not detected Stool Sapovirus (PCR) Not detected Stl P. shigelloides PCR Not detected Stl Shigella/EIEC PCR Not detected St Y.enterocolitica PCR Not detected Stool Vibrio (PCR) Not detected Stl Vibrio cholerae PCR Not detected Stl Norovirus GI/GII PCR Not detected DS: Diagnosis - Discharge Diagnosis (1) Body mass index (BMI) greater than 50 Status: Chronic (2) Diabetes mellitus type 2, insulin dependent Status: Chronic (3) Colitis Status: Acute (4) Hypokalemia Status: Acute (5) Hyponatremia Status: Acute (6) Esophageal stricture Status: Resolved Discharge Plan - Patient Discharge Instructions ACTIVITY: Continue current activity DIET: low fat, low cholesterol Patient Instructions: Irritable Bowel Syndrome, Hypokalemia - Follow up Plan Follow up with: Clarence Ram MD [Primary Care Provider] - 05/23/18 Disposition: Home, Self-[facility] Medications: Home Medications Medication Instructions Recorded Confirmed Type Exenatide Microspheres [Bydureon 2 mg SQ WEEKLY 08/02/17 05/16/18 History Pen] Promethazine HCl [Phenergan 12.5mg 12.5 mg PO Q8H PRN #10 tab 08/02/17 05/16/18 Rx tablet] Propylene Glycol/Peg 400/Pf 1 each OP DAILY 08/02/17 05/16/18 History [Systane 0.3-0.4% Eye Drops] Furosemide [Furosemide 20mg Tab] 20 mg PO DAILY 12/17/17 05/16/18 History Lisinopril [Lisinopril 2.5mg Tab] 2.5 mg PO DAILY 12/17/17 05/16/18 History raNITIdine HCl [Ranitidine HCl] 300 mg PO DAILY 12/17/17 05/16/18 History Atorvastatin Calcium [Atorvastatin 40 mg PO HS 05/17/18 05/17/18 History 40mg Tab] Cetirizine HCl 10 mg PO DAILY 05/17/18 05/17/18 History Ibuprofen [Advil 200mg Tab] 200 mg PO TIDP PRN 05/17/18 05/17/18 History Insulin NPH Hum/Reg Insulin Hm 40 - 45 unit SQ DAILY 05/17/18 05/17/18 History [Humulin 70/30 Kwikpen] Levalbuterol HCl 0.31 mg IH DAILY 05/17/18 05/17/18 History Metformin HCl 1,000 mg PO BID 05/17/18 05/17/18 History Omeprazole [Omeprazole 40mg 40 mg PO DAILY 05/17/18 05/17/18 History Capsule] Plecanatide [Trulance] 3 mg PO DAILY 05/17/18 05/17/18 History metOLazone [metOLazone 2.5mg 2.5 mg PO DAILY 05/17/18 05/17/18 History Tablet] Prescriptions/Medication Reconciliation: Continue Exenatide Microspheres [Bydureon Pen] 2 mg SQ WEEKLY raNITIdine HCl [Ranitidine HCl] 300 mg PO DAILY Lisinopril [Lisinopril 2.5mg Tab] 2.5 mg PO DAILY Atorvastatin Calcium [Atorvastatin 40mg Tab] 40 mg PO HS Insulin NPH Hum/Reg Insulin Hm [Humulin 70/30 Kwikpen] 40 - 45 unit SQ DAILY Metformin HCl 1,000 mg PO BID Levalbuterol HCl 0.31 mg IH DAILY Omeprazole [Omeprazole 40mg Capsule] 40 mg PO DAILY Propylene Glycol/Peg 400/Pf [Systane 0.3-0.4% Eye Drops] 1 each OP DAILY Promethazine HCl [Phenergan 12.5mg tablet] 12.5 mg PO Q8H PRN #10 tab PRN Reason: Nausea Plecanatide [Trulance] 3 mg PO DAILY Cetirizine HCl 10 mg PO DAILY Discontinued Furosemide [Furosemide 20mg Tab] 20 mg PO DAILY Ibuprofen [Advil 200mg Tab] 200 mg PO TIDP PRN PRN Reason: Inflammation metOLazone [metOLazone 2.5mg Tablet] 2.5 mg PO DAILY
== END 2018-05-18 14:54 | disposition home or self-care (01) ==
LOC: ER 15:09 → 2ND 15:09
PROVIDERS: ADMIT Emergency Medicine; ATTEND Internal Medicine Adolescent Medicine
DX: Z88.0 Allergy status to penicillin; K21.9 Gastro-esophageal reflux disease without esophagitis; Z79.4 Long term (current) use of insulin; Z79.899 Other long term (current) drug therapy; Z68.43 Body mass index [BMI] 50.0-59.9, adult; Z87.891 Personal history of nicotine dependence; Z79.84 Long term (current) use of oral hypoglycemic drugs; E87.1 Hypo-osmolality and hyponatremia; Z91.013 Allergy to seafood; Z91.010 Allergy to peanuts; K29.50 Unspecified chronic gastritis without bleeding; K22.70 Barrett's esophagus without dysplasia; M19.90 Unspecified osteoarthritis, unspecified site; E66.01 Morbid (severe) obesity due to excess calories; E87.6 Hypokalemia; I85.00 Esophageal varices without bleeding; E11.9 Type 2 diabetes mellitus without complications; Z88.5 Allergy status to narcotic agent; Z82.49 Family history of ischemic heart disease and other diseases of the circulatory system
CPT/HCPCS: 36415; 74177; 80053; 82962; 85007; 85025; 87507; 96365; 96375; 99284; G0378; Q9967

== ENCOUNTER → 2018-05-29 12:44 | Outpatient (CLI) | payer MEDICARE, MEDICAID, SELFPAY | PROVIDERS: PCP Internal Medicine Adolescent Medicine; Visit Provider Internal Medicine Adolescent Medicine | DX: G47.30 Sleep apnea, unspecified (principal); G47.10 Hypersomnia, unspecified; R06.83 Snoring; E66.1 Drug-induced obesity | CPT/HCPCS: G0399 ==

== ENCOUNTER 2018-08-21 19:10 | Observation (INO) ==
[2018-08-21 19:24] LABS: Basophils # 0.1 K/mm3 (0-0.2); Basophils % 0.6 % (0.1-2.0); Eosinophils # 0.3 K/mm3 (0.0-0.4); Eosinophils % 3.5 % (0.1-12.0); Hematocrit 36.6 % (37.0-47.0); Lymphocytes # 3.6 K/mm3 (0.7-4.5); Lymphocytes % 37.9 % (10-50); Mean Corpuscular HGB Conc 32.7 g/dL (31.8-35.4); Mean Corpuscular Hemoglobin 26.4 pg (27.0-31.2); Mean Corpuscular Volume 80.7 fl (81-99); Mean Platelet Volume 7.2 fl (7.4-10.4); Monocytes # 0.4 K/mm3 (0.1-1.0); Monocytes % 4.5 % (1.7-9.3); Neutrophils % 53.5 % (37.0-80.0); Platelet Count 413 K/mm3 (142-424); Red Blood Count 4.53 M/mm3 (4.20-5.40); Red Cell Distribution Width 15.3 % (11.5-17.5); White Blood Count 9.4 K/mm3 (4.8-10.8)
[2018-08-21 19:43] LABS: Alanine Aminotransferase 19 U/L (12-78); Albumin Level 2.9 gm/dL (3.4-5.0); Alkaline Phosphatase 96 U/L (46-116); Anion Gap 9.4 mEq/L (5-15); Aspartate Amino Transferase 8 U/L (15-37); Bilirubin,Total 0.3 mg/dL (0.2-1.0); Blood Urea Nitrogen 16 mg/dL (7-18); Calcium 8.1 mg/dL (8.5-10.1); Carbon Dioxide 30 mmol/L (21.0-32.0); Chloride 106 mmol/L (98-107); Glucose 159 mg/dL (74-106); Potassium 3.4 mmoL/L (3.5-5.1); Sodium 142 mmol/L (136-145); Total Protein,Serum 7.1 gm/dL (6.4-8.2)
[2018-08-21 19:46] LABS: Bilirubin,Indirect 0.3 mg/dL (0.0-0.9)
--- NOTE | 2018-08-21 19:49 | Emergency Department Note ---
ED Disposition Clinical Impression: Chest pain, precordial Disposition: Admitted as Observation Condition on Discharge: Good Referrals: Provider,Referral, [Referring] - - Critical Care Critical Care Time: No Attestation: On 08/21/18, the high probability of a clinically significant, sudden or life threatening deterioration of the following system(s) required my full and direct attention, intervention and personal management. The time I documented below is in addition to time spent performing reported procedures but includes the following listed in this critical care notation. Medical Decision Making - [place] Inquiry Pt receiving controlled substance: No Vital Signs: 08/21/18 19:10 Temperature 98.6 F Temperature Source Oral Pulse Rate [Right] 87 Respiratory Rate 20 Blood Pressure [Right Arm] 154/75 H Blood Pressure Mean [Right Arm] 101 02 Sat by Pulse Oximetry 93 L - Lab Data Lab Results 08/21/18 17:15: WBC 9.4, RBC 4.53, Hgb 12.0 L, Hct 36.6 L, MCV 80.7 L, MCH 26.4 L, MCHC 32.7, RDW 15.3, Plt Count 413, MPV 7.2 L, Neut % (Auto) 53.5, Lymph % (Auto) 37.9, [place] % (Auto) 4.5, Eos % (Auto) 3.5, Baso % (Auto) 0.6, Neut # (Auto) 5.0, Lymph # (Auto) 3.6, [place] # (Auto) 0.4, Eos # (Auto) 0.3, Baso # (Auto) 0.1 08/21/18 17:15: Sodium 142, Potassium 3.4 L, Chloride 106, Carbon Dioxide 30, Anion Gap 9.4, BUN 16, Creatinine 0.96, Estimated Creat Clear 52, Estimated GFR 60, Est GFR ( Amer) 73, Glucose 159 H, Calcium 8.1 L, Total Bilirubin 0.3, Direct Bilirubin 0.0, Indirect Bilirubin 0.3, AST 8 L, ALT 19, Alkaline Phosphatase 96, Troponin I < 0.02, Total Protein 7.1, Albumin 2.9 L Result diagrams: 08/21/18 17:15 08/21/18 17:15 Orders (Tests/Meds): ED MEDICATIONS Generic Name Dose Route Start Last Admin Trade Name Freq PRN Reason Stop Dose Admin Sodium Chloride 1,000 mls @ 999 mls/hr 08/21/18 19:30 08/21/18 19:25 Sod Chlor 0.9% 1000ml Bag IV 08/21/18 20:30 999 mls/hr .Q1H1M KENDY Administration Discontinued Medications Generic Name Dose Route Start Last Admin Trade Name Pro PRN Reason Stop Dose Admin Aspirin 324 mg 08/21/18 19:17 08/21/18 19:25 Aspirin 81mg Chewable Tablet PO 08/21/18 19:18 324 mg ONCE ONE Administration Nitroglycerin 0.4 mg 08/21/18 19:17 Nitrostat 0.4mg Sl Tablet SL 08/21/18 19:18 ONCE ONE ORDERS Category Date Time Status Chest XR 2 view (NOT portable) [XR chest 2V] Stat Exams 08/21/18 19:15 Taken ECG Request by /Pat Stat Y 08/21/18 19:15 Ordered - Physician Consults Physician Consulted: Yo Time: 20:00 Reason -: Admission Comment/Response: Agrees to admit the patient to the hospital. We discussed the patient's clinical information, including history, exam, laboratory and radiology results and ED course. Per hospital procedure, I will write temporary bridge inpatient orders on the patient. Specific orders requested by the admitting physician: Serial cardiac enzymes, echocardiogram and cardiology consult tomorrow General Adult HPI - General Chief complaint: Chest Pain Stated complaint: CP Time Seen by Provider: 08/21/18 19:40 Mode of Arrival: Ambulatory Limitations: No Limitations Description of Symptoms (Recalled from ER Triage Doc. by RN): Pt states she is having chest pain all acorss her chest that radiates to her back, neck and left shoulder, states its a burning pain. - History of Present Illness HPI narrative: 1 hour ago developed burning chest discomfort into her neck, left arm, jaw, and back. Associated with shortness of breath, nausea, but no diaphoresis. Disco mfort is currently 04/26, much improved. No previous similar pains. Had a stress test years ago that was negative, no other cardiac work-up. She has diabetes, hyperlipidemia, hypertension, and a f amily history of heart disease and myocardial infarction in her father. She is not a smoker. - Related Data Home Medications Medication Instructions Recorded Confirmed Exenatide Microspheres [Bydureon 2 mg SQ WEEKLY 08/02/17 08/21/18 Pen] Propylene Glycol/Peg 400/Pf 1 each OP DAILY 08/02/17 08/21/18 [Systane 0.3-0.4% Eye Drops] Lisinopril [Lisinopril 2.5mg Tab] 2.5 mg PO DAILY 12/17/17 08/21/18 raNITIdine HCl [Ranitidine HCl] 300 mg PO DAILY 12/17/17 08/21/18 Atorvastatin Calcium [Atorvastatin 40 mg PO HS 05/17/18 08/21/18 40mg Tab] Cetirizine HCl 10 mg PO DAILY 05/17/18 08/21/18 Insulin NPH Hum/Reg Insulin Hm 40 - 45 unit SQ DAILY 05/17/18 08/21/18 [Humulin 70/30 Kwikpen] Metformin HCl 1,000 mg PO BID 05/17/18 08/21/18 Omeprazole [Omeprazole 40mg 40 mg PO DAILY 05/17/18 08/21/18 Capsule] Plecanatide [Trulance] 3 mg PO DAILY 05/17/18 08/21/18 Previous Rx's Medication Instructions Recorded Promethazine HCl [Phenergan 12.5mg 12.5 mg PO Q8H PRN #10 tab 08/02/17 tablet] Allergies Allergy/AdvReac Type Severity Reaction Status Date / Time hydromorphone [HYDROMORPHONE] Allergy Mild ITCHING OF Verified 04/25/18 10:04 FACE/NOSE morphine [MORPHINE] Allergy Mild SHAKING Verified 04/25/18 10:04 penicillin G [PENICILLIN G] Allergy Mild Unknown Verified 05/17/18 00:18 allergy reaction PEANUTS (FOOD) Allergy Intermediate ITCHING OF Uncoded 08/10/17 10:57 PALMS OF HANDS AND BOTTOM OF FEET FISH,CANNED AdvReac Mild NAUSEA/VOMI Uncoded 08/10/17 10:57 TING [facility] History - Hepatitis A Screen Drug use history?: No High risk sexual behaviors?: No History of sexually transmitted infection?: No Currently employed?: No Childcare worker?: No Do you have indoor plumbing?: Yes Do you have electricity?: Yes Attestation statement:: This patient has been screened for Hepatitis A risk factors. I have reviewed the patient's past medical history: Yes Medical History: Reports:: Asthma, Depression, Diabetes Mellitus Type 2, Gastroesophageal Reflux Disease(GERD), Hyperlipidemia, Hypertension, Lung Disease (eitan), Migraine Denies:: Cancer, Diabetes Mellitus Type 1, Internal Pacemaker, MRSA, Seizures Other Medical History: Reports: Anemia, Arthritis Comment: super morbid obesity Laterality Cases: Bilateral: Other Other Surgeries: Yes: Cholecystectomy, Hysterectomy-Total. No: Pacemaker Amputation: No Fractures: Yes - Social History Smoking Status: Former smoker (quit 2016) Tobacco Type: cigarettes # Packs/Day (cigarettes): 1 #Yrs smoked (if former smoker): 40 Alcohol Intake: never Alcohol Intake Frequency:: other Occupational Status: disabled Housing: apartment Household Members: significant other, none - Psychiatric History Expresses thoughts of harming self/others: None Suicide Plan Description: No Plan Pschychiatric History:: Reports:: Depression Family Hx:: Heart Attack, Diabetes ROS Obtained: Yes All systems reviewed & no additional complaints - Constitutional Constitutional: Denies fever(s) - Cardiovascular Cardiovascular: Reports chest pain, Reports radiating jaw, neck or arm pain - Respiratory Respiratory: Yes dyspnea - Gastrointestinal Gastrointestingal: Denies: abdominal pain Physical Exam - General General appearance: alert, in no apparent distress - Head Head exam: atraumatic, normocephalic - Eye Eye exam: Present: normal appearance, EOMI - ENT ENT exam: Present: mucous membranes moist - Neck Neck exam: Present: normal inspection, trachea midline - Chest Chest inspection: Present: normal inspection, symmetric chest wall rise - Respiratory Respiratory exam: Present: normal lung sounds bilaterally. Absent: respiratory distress - Cardiovascular Cardiovascular exam: Present: regular rate, normal rhythm, normal heart sounds - Abdominal Exam Abdominal exam: Present: soft. Absent: distention, tenderness - Extremities Exam Extremities exam: Present: normal inspection. Absent: pedal edema - Neurological Exam Neurological exam: Present: alert, oriented X3 - Psychiatric Psychiatric exam: Present: normal affect, normal mood - Skin Skin exam: Present: warm, dry
--- NOTE | 2018-08-22 07:17 | Pharmacy Consult Notes ---
[facility] VTE Monitoring - Patient Demographics Admission date: 08/21/18 Report Date: 08/22/18 Time: 07:17 Allergies/Adverse Reactions: Patient Allergies hydromorphone [HYDROMORPHONE] Allergy (Mild, Verified 04/25/18 10:04) ITCHING OF FACE/NOSE morphine [MORPHINE] Allergy (Mild, Verified 08/21/18 21:30) SHAKING penicillin G [PENICILLIN G] Allergy (Mild, Verified 08/21/18 21:30) Rash FISH,CANNED Adverse Reaction (Mild, Uncoded 08/21/18 21:28) NAUSEA/VOMITING Height: 1.57 m Weight: 134.717 kg Patient Problems: Current Active Problems (Updated 08/21/18 @ 20:15 by Samuel Hall MD) Chest pain, precordial (Acute) - VTE Risk Labs: VTE Related Lab Results Hgb 12.0 g/dL (12.2-16.2) L 08/21/18 17:15 Hct 36.6 % (37.0-47.0) L 08/21/18 17:15 Plt Count 413 K/mm3 (142-424) 08/21/18 17:15 BUN 16 mg/dL (7-18) 08/21/18 17:15 Creatinine 0.96 mg/dL (0.55-1.02) 08/21/18 17:15 Estimated Creat Clear 52 mL/min (50-200) 08/21/18 17:15 Was VTE Risk Assessment Performed: Yes VTE Score: 4 VTE Risk Level: Low Risk Clinical Trial Participant: No - Prophylaxis VTE Prophylaxis Ordered?: Yes Types of VTE Prophylaxis: TEDS Knee High Location of Applied Device: Bilateral Lower Extremeties
--- NOTE | 2018-08-22 08:33 | History & Physical Report ---
*Admission Date: 08/21/18 *Chief complaint: Chest pain *History of present illness: 57-year-old white female with multiple cardiac risk factors-history of negative stress test in the remote past-greater than 7 years ago-who presented to the emergency department with 1 hour of squeezing chest pain with nausea, diaphoresis and pressure. In the emergency department nitroglycerin relieved her pain, admitted to hospital for serial enzymes and cardiology consultation. [facility] History I have reviewed the patient's past medical history: Yes Medical History: Reports:: Asthma, Depression, Diabetes Mellitus Type 2, Gastroesophageal Reflux Disease(GERD), Hyperlipidemia, Hypertension, Lung Disease (eitan), Migraine, MRSA (Pt. states a long time ago.) Denies:: Cancer, Diabetes Mellitus Type 1, Internal Pacemaker, Seizures *Have you ever received a pneumonia vaccine?: Yes *Have you received a flu vaccine this season?: Yes Other Medical History: Reports: Anemia, Arthritis Laterality Cases: Bilateral: Other Other Surgeries: Yes: Cholecystectomy, Hysterectomy-Total. No: Pacemaker Amputation: No Fractures: Yes - *Social History Educational Level: Attended College Smoking Status: Former smoker Tobacco Type: cigarettes # Packs/Day (cigarettes): 1 #Yrs smoked (if former smoker): 42 Smoking End Date: 02/05/2016 Alcohol Intake: never Alcohol Intake Frequency:: other *Occupational Status:: disabled Housing: apartment Household Members: none *Travel in the last 8 weeks: None - Psychiatric History Expresses thoughts of harming self/others: None Suicide Plan Description: No Plan Pschychiatric History:: Reports:: Depression Family Hx:: Diabetes, Heart Attack, Stroke Review of Systems - Review of Systems Review of systems:: pertinent systems reviewed and negative unless documented below Patient denies shortness of air or chest pain at this point. Awake and alert. Denies pain, review of systems otherwise negative Meds Home Medications Medication Instructions Recorded Confirmed Type Exenatide Microspheres [Bydureon 2 mg SQ WEEKLY 08/02/17 08/21/18 History Pen] Promethazine HCl [Phenergan 12.5mg 12.5 mg PO Q8H PRN #10 tab 08/02/17 08/21/18 Rx tablet] Propylene Glycol/Peg 400/Pf 1 each OP DAILY PRN 08/02/17 08/21/18 History [Systane 0.3-0.4% Eye Drops] Lisinopril [Lisinopril 2.5mg Tab] 2.5 mg PO DAILY 12/17/17 08/21/18 History raNITIdine HCl [Ranitidine HCl] 300 mg PO DAILY 12/17/17 08/21/18 History Atorvastatin Calcium [Atorvastatin 40 mg PO HS 05/17/18 08/21/18 History 40mg Tab] Cetirizine HCl 10 mg PO DAILY 05/17/18 08/21/18 History Insulin NPH Hum/Reg Insulin Hm 40 - 45 unit SQ DAILY 05/17/18 08/21/18 History [Humulin 70/30 Kwikpen] Metformin HCl 1,000 mg PO BID 05/17/18 08/21/18 History Omeprazole [Omeprazole 40mg 40 mg PO DAILY 05/17/18 08/21/18 History Capsule] Plecanatide [Trulance] 3 mg PO DAILY 05/17/18 08/21/18 History Furosemide [Lasix 20mg tab] 20 mg PO DAILY 08/21/18 08/21/18 History Allergies Allergy/AdvReac Type Severity Reaction Status Date / Time hydromorphone [HYDROMORPHONE] Allergy Mild ITCHING OF Verified 04/25/18 10:04 FACE/NOSE morphine [MORPHINE] Allergy Mild SHAKING Verified 08/21/18 21:30 penicillin G [PENICILLIN G] Allergy Mild Rash Verified 08/21/18 21:30 Fish Containing Products AdvReac Mild Nausea Verified 08/22/18 07:48 Exam Vital signs and Labs for Last 24 Hours: Temp Pulse Resp BP Pulse Ox 97.7 F 71 18 132/78 97 08/22/18 08:00 08/22/18 08:00 08/22/18 08:00 08/22/18 08:00 08/22/18 08:00 Laboratory Results - last 24 hr 08/21/18 17:15: WBC 9.4, RBC 4.53, Hgb 12.0 L, Hct 36.6 L, MCV 80.7 L, MCH 26.4 L, MCHC 32.7, RDW 15.3, Plt Count 413, MPV 7.2 L, Neut % (Auto) 53.5, Lymph % (Auto) 37.9, [place] % (Auto) 4.5, Eos % (Auto) 3.5, Baso % (Auto) 0.6, Neut # (Auto) 5.0, Lymph # (Auto) 3.6, [place] # (Auto) 0.4, Eos # (Auto) 0.3, Baso # (A uto) 0.1 08/21/18 17:15: Sodium 142, Potassium 3.4 L, Chloride 106, Carbon Dioxide 30, Anion Gap 9.4, BUN 16, Creatinine 0.96, Estimated Creat Clear 52, Estimated GFR 60, Est GFR ( Amer) 73, Glucose 159 H, Calcium 8.1 L, Total Bilirubin 0.3, Direct Bilirubin 0.0, Indirect Bilirubin 0.3, AST 8 L, ALT 19, Alkaline Phosphatase 96, Troponin I < 0.02, Total Protein 7.1, Albumin 2.9 L 08/21/18 22:49: POC Glucose 111 H 08/21/18 23:04: Troponin I < 0.02 08/22/18 02:30: Troponin I < 0.02 08/22/18 06:05: POC Glucose 118 H I & O for Last 24 hours: Intake & Output 08/19/18 08/20/18 08/21/18 08/22/18 11:59 11:59 11:59 11:59 Intake Total 370 / 370 Balance 370 / 370 Weight 297 lb Narrative: Patient is awake, alert, oriented x3. Morbid obesity limits accuracy of her exam. Lungs are clear bilaterally, heart rate regular. No peripheral pitting edema. Able to move arms and legs well, cranial nerves intact, oropharynx clear. Assessment and Plan (1) Insulin-requiring or dependent type II diabetes mellitus Current visit: Yes Status: Acute Category: Medical Code(s): E11.9 - Type 2 diabetes mellitus without complications; Z79.4 - retirement (current) use of insulin Complicates her care, major risk factor for cardiovascular disease (2) Chest pain, precordial Current visit: Yes Status: Acute Category: Medical Code(s): R07.2 - Precordial pain Significant risk factors for cardiac disease. Cardiology consultation today (3) Body mass index (BMI) greater than 50 Current visit: No Status: Chronic Category: Medical Complicates all aspects of her care
--- NOTE | 2018-08-22 09:11 | Consult Report ---
History of Present Illness Consult date: 08/22/18 Requesting physician: Clarence Ram Consult reason: chest pain Chief complaint: chest pain Additional Medical History:: 1. Diabetes mellitus, treated since 2000 2. History of tobacco use for 40 years discontinued 2 years ago 3. Morbid obesity 4. Hypertension 5. Hyperlipidemia 6. Family history of early coronary artery disease in her father with an ND at age 62 7. irritable bowel syndrome-diarrhea predominant 8. History of cholecystectomy and hysterectomy History of present illness: 57-year-old white female with multiple cardiac risk factors-history of negative stress test in the remote past-greater than 7 years ago-who presented to the emergency department with 1 hour of squeezing chest pain with nausea, diaphoresis and pressure. In the emergency department nitroglycerin relieved her pain, admitted to hospital for serial enzymes and cardiology consultation The above per Dr. Ram Patient relates the chest pain was associated with shoulder and jaw discomfort. She denies any recent fever, chills, nausea vomiting or diaphoresis prior to yesterday's episode. EKG is sinus and unremarkable. Troponins normal x3 Preliminary echocardiogram shows preserved left ventricular ejection fraction [facility] History Medical History: Reports:: Asthma, Depression, Diabetes Mellitus Type 2, Gastroesophageal Reflux Disease(GERD), Hyperlipidemia, Hypertension, Lung Disease (eitan), Migraine, MRSA (Pt. states a long time ago.) Denies:: Cancer, Diabetes Mellitus Type 1, Internal Pacemaker, Seizures *Have you ever received a pneumonia vaccine?: Yes *Have you received a flu vaccine this season?: Yes Other Medical History: Reports: Anemia, Arthritis Laterality Cases: Bilateral: Other Other Surgeries: Yes: Cholecystectomy, Hysterectomy-Total. No: Pacemaker Amputation: No Fractures: Yes - *Social History Educational Level: Attended College Smoking Status: Former smoker Tobacco Type: cigarettes # Packs/Day (cigarettes): 1 #Yrs smoked (if former smoker): 42 Smoking End Date: 02/05/2016 Alcohol Intake: never Alcohol Intake Frequency:: other *Occupational Status:: disabled Housing: apartment Household Members: none *Travel in the last 8 weeks: None - Psychiatric History Expresses thoughts of harming self/others: None Suicide Plan Description: No Plan Pschychiatric History:: Reports:: Depression Family Hx:: Diabetes, Heart Attack, Stroke Meds Home Medications Medication Instructions Recorded Confirmed Type Exenatide Microspheres [Bydureon 2 mg SQ WEEKLY 08/02/17 08/21/18 History Pen] Promethazine HCl [Phenergan 12.5mg 12.5 mg PO Q8H PRN #10 tab 08/02/17 08/21/18 Rx tablet] Propylene Glycol/Peg 400/Pf 1 each OP DAILY PRN 08/02/17 08/21/18 History [Systane 0.3-0.4% Eye Drops] Lisinopril [Lisinopril 2.5mg Tab] 2.5 mg PO DAILY 12/17/17 08/21/18 History raNITIdine HCl [Ranitidine HCl] 300 mg PO DAILY 12/17/17 08/21/18 History Atorvastatin Calcium [Atorvastatin 40 mg PO HS 05/17/18 08/21/18 History 40mg Tab] Cetirizine HCl 10 mg PO DAILY 05/17/18 08/21/18 History Insulin NPH Hum/Reg Insulin Hm 40 - 45 unit SQ DAILY 05/17/18 08/21/18 History [Humulin 70/30 Kwikpen] Metformin HCl 1,000 mg PO BID 05/17/18 08/21/18 History Omeprazole [Omeprazole 40mg 40 mg PO DAILY 05/17/18 08/21/18 History Capsule] Plecanatide [Trulance] 3 mg PO DAILY 05/17/18 08/21/18 History Furosemide [Lasix 20mg tab] 20 mg PO DAILY 08/21/18 08/21/18 History Acetaminophen [Tylenol 500mg 1,000 mg PO Q6HP PRN 08/22/18 08/22/18 History tablet] Fluticasone Propionate [Flovent 2 puffs IN BID 08/22/18 08/22/18 History Hfa 110mcg Inhaler] Furosemide [Furosemide 20mg Tab] 20 mg PO BID 08/22/18 08/22/18 History Levalbuterol Tartrate [Xopenex Hfa] 2 puffs IH Q4HP PRN 08/22/18 08/22/18 History Allergies Allergy/AdvReac Type Severity Reaction Status Date / Time hydromorphone [HYDROMORPHONE] Allergy Mild ITCHING OF Verified 04/25/18 10:04 FACE/NOSE morphine [MORPHINE] Allergy Mild SHAKING Verified 08/21/18 21:30 penicillin G [PENICILLIN G] Allergy Mild Rash Verified 08/21/18 21:30 Fish Containing Products AdvReac Mild Nausea Verified 08/22/18 07:48 Review of Systems - *Cardiovascular Reports chest pain, Reports shortness of breath with activity - *Respiratory Reports shortness of breath with activity, Denies cough - *Gastrointestinal Denies abdominal pain, Denies vomiting - *Genitourinary Denies side pain, Denies blood in urine - *Musculoskeletal Denies joint pain, Denies back pain - *Neurologic Denies headache(s), Denies loss of vision Exam Vital signs and Labs for Last 24 Hours: Temp Pulse Resp BP Pulse Ox 97.7 F 71 18 132/78 97 08/22/18 08:00 08/22/18 08:00 08/22/18 08:00 08/22/18 08:00 08/22/18 08:00 Laboratory Results - last 24 hr 08/21/18 17:15: WBC 9.4, RBC 4.53, Hgb 12.0 L, Hct 36.6 L, MCV 80.7 L, MCH 26.4 L, MCHC 32.7, RDW 15.3, Plt Count 413, MPV 7.2 L, Neut % (Auto) 53.5, Lymph % (Auto) 37.9, [place] % (Auto) 4.5, Eos % (Auto) 3.5, Baso % (Auto) 0.6, Neut # (Auto) 5.0, Lymph # (Auto) 3.6, [place] # (Auto) 0.4, Eos # (Auto) 0.3, Baso # (Auto) 0.1 08/21/18 17:15: Sodium 142, Potassium 3.4 L, Chloride 106, Carbon Dioxide 30, Anion Gap 9.4, BUN 16, Creatinine 0.96, Estimated Creat Clear 52, Estimated GFR 60, Est GFR ( Amer) 73, Glucose 159 H, Calcium 8.1 L, Total Bilirubin 0.3, Direct Bilirubin 0.0, Indirect Bilirubin 0.3, AST 8 L, ALT 19, Alkaline Phosphatase 96, Troponin I < 0.02, Total Protein 7.1, Albumin 2.9 L 08/21/18 22:49: POC Glucose 111 H 08/21/18 23:04: Troponin I < 0.02 08/22/18 02:30: Troponin I < 0.02 08/22/18 06:05: POC Glucose 118 H I & O for Last 24 hours: Intake & Output 08/19/18 08/20/18 08/21/18 08/22/18 11:59 11:59 11:59 11:59 Intake Total 370 / 370 Balance 370 / 370 Weight 297 lb - *Routine HEENT Exam Head: Present: normocephalic Eye: Present: EOMI, PERRL ENT: Present: mucous membranes moist - *Routine Neck Exam Present: supple. Absent: JVD, carotid bruit - *Routine Respiratory Exam Present: CTA bilaterally. Absent: accessory muscle use, rales, rhonchi, wheezes - *Routine Cardiovascular Exam Present: RRR. Absent: murmur, gallop, rubs - *Routine Abdominal Exam Present: soft. Absent: tenderness, distended, guarding - *Routine Extremities Exam Absent: edema, calf tenderness - *Routine Neurological Exam Present: alert, oriented X3, moving all extremities Assessment and Plan (1) Unstable angina pectoris Current visit: Yes Status: Acute Category: Medical Code(s): I20.0 - Unstable angina (2) Insulin-requiring or dependent type II diabetes mellitus Current visit: Yes Status: Acute Category: Medical Code(s): E11.9 - Type 2 diabetes mellitus without complications; Z79.4 - snf (current) use of insulin (3) Body mass index (BMI) greater than 50 Current visit: No Status: Chronic Category: Medical (4) Ex-smoker for more than 1 year Current visit: Yes Status: Acute Category: Social Hx Code(s): Z87.891 - Personal history of nicotine dependence (5) Family history of early CAD Current visit: Yes Status: Acute Category: Medical Code(s): Z82.49 - Family history of ischemic heart disease and other diseases of the circulatory system (6) Diabetes mellitus type 2, insulin dependent Current visit: No Status: Chronic Category: Medical Code(s): E11.9 - Type 2 diabetes mellitus without complications; 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 Chest pain with nausea, diaphoresis and a long-term diabetic, hypertensive, hyperlipidemic with history of tobacco use and early family history of coronary artery disease. Recommend proceeding with left heart catheterization today. Risks, benefits and procedure explained to the patient. All questions answered. She agrees to proceed. 2. Preliminary echocardiogram shows preserved ejection fraction. Official report pending. 3. Further recommendations pending above results.
--- NOTE | 2018-08-22 17:39 | Discharge Summary ---
General - General Admission date:: 08/21/18 Discharge date: 08/22/18 HPI HPI: 57-year-old white female with multiple cardiac risk factors-history of negative stress test in the remote past-greater than 7 years ago-who presented to the emergency department with 1 hour of squeezing chest pain with nausea, diaphoresis and pressure. In the emergency department nitroglycerin relieved her pain, admitted to hospital for serial enzymes and cardiology consultation. Hospital Course Hospital Course: Patient was admitted, ruled out for myocardial infarction, subjective the left heart catheterization because of her anginal pain and significant risk factors. Somewhat surprisingly, catheterization was unremarkable, with normal coronary arteries Patient was discharged after safety monitoring with continued advice on risk factor modification. Objective Vital signs: Temp Pulse Resp BP Pulse Ox 97.7 F 80 18 132/78 97 08/22/18 09:18 08/22/18 16:00 08/22/18 09:18 08/22/18 09:18 08/22/18 09:18 Narrative: Pleasant, alert, oriented x3. Heart rate regular. Oropharynx clear. Lungs clear. Obesity limits exam. Neurologic exam intact Results Labs on day of discharge: Labs from last 24 hours 08/22/18 08/22/18 08/22/18 17:13 11:24 06:05 WBC RBC Hgb Hct MCV MCH MCHC RDW Plt Count MPV Neut % (Auto) Lymph % (Auto) [place] % (Auto) Eos % (Auto) Baso % (Auto) Neut # (Auto) Lymph # (Auto) [place] # (Auto) Eos # (Auto) Baso # (Auto) Sodium Potassium Chloride Carbon Dioxide Anion Gap BUN Creatinine Estimated Creat Clear Estimated GFR Est GFR ( Amer) Glucose POC Glucose 174 H 116 H 118 H Calcium Total Bilirubin Direct Bilirubin Indirect Bilirubin AST ALT Alkaline Phosphatase Troponin I Total Protein Albumin 08/22/18 08/21/18 08/21/18 02:30 23:04 22:49 WBC RBC Hgb Hct MCV MCH MCHC RDW Plt Count MPV Neut % (Auto) Lymph % (Auto) [place] % (Auto) Eos % (Auto) Baso % (Auto) Neut # (Auto) Lymph # (Auto) [place] # (Auto) Eos # (Auto) Baso # (Auto) Sodium Potassium Chloride Carbon Dioxide Anion Gap BUN Creatinine Estimated Creat Clear Estimated GFR Est GFR ( Amer) Glucose POC Glucose 111 H Calcium Total Bilirubin Direct Bilirubin Indirect Bilirubin AST ALT Alkaline Phosphatase Troponin I < 0.02 < 0.02 Total Protein Albumin 08/21/18 08/21/18 17:15 17:15 WBC 9.4 RBC 4.53 Hgb 12.0 L Hct 36.6 L MCV 80.7 L MCH 26.4 L MCHC 32.7 RDW 15.3 Plt Count 413 MPV 7.2 L Neut % (Auto) 53.5 Lymph % (Auto) 37.9 [place] % (Auto) 4.5 Eos % (Auto) 3.5 Baso % (Auto) 0.6 Neut # (Auto) 5.0 Lymph # (Auto) 3.6 [place] # (Auto) 0.4 Eos # (Auto) 0.3 Baso # (Auto) 0.1 Sodium 142 Potassium 3.4 L Chloride 106 Carbon Dioxide 30 Anion Gap 9.4 BUN 16 Creatinine 0.96 Estimated Creat Clear 52 Estimated GFR 60 Est GFR ( Amer) 73 Glucose 159 H POC Glucose Calcium 8.1 L Total Bilirubin 0.3 Direct Bilirubin 0.0 Indirect Bilirubin 0.3 AST 8 L ALT 19 Alkaline Phosphatase 96 Troponin I < 0.02 Total Protein 7.1 Albumin 2.9 L DS: Diagnosis - Discharge Diagnosis (1) Unstable angina pectoris Status: Ruled-out (2) Insulin-requiring or dependent type II diabetes mellitus Status: Chronic (3) Body mass index (BMI) greater than 50 Status: Chronic (4) Ex-smoker for more than 1 year Status: Chronic (5) Family history of early CAD Status: Chronic (6) Diabetes mellitus type 2, insulin dependent Status: Chronic Discharge Plan - Patient Discharge Instructions ACTIVITY: Continue current activity DIET: continue same diet Patient Instructions: DI for Cardiac Catheterization, DI for Surgical Site Infection, DI for Chest Pain - Follow up Plan Follow up with: Clarence Ram MD [Primary Care Provider] - Disposition: Home, Self-Group Home Medications: Home Medications Medication Instructions Recorded Confirmed Type Exenatide Microspheres [Bydureon 2 mg SQ WEEKLY 08/02/17 08/22/18 History Pen] Propylene Glycol/Peg 400/Pf 1 each OP DAILYP PRN 08/02/17 08/22/18 History [Systane 0.3-0.4% Eye Drops] Lisinopril [Lisinopril 2.5mg Tab] 2.5 mg PO DAILY 12/17/17 08/21/18 History raNITIdine HCl [Ranitidine HCl] 300 mg PO DAILY 12/17/17 08/21/18 History Atorvastatin Calcium [Atorvastatin 40 mg PO HS 05/17/18 08/22/18 History 40mg Tab] Cetirizine HCl 10 mg PO DAILY 05/17/18 08/22/18 History Insulin NPH Hum/Reg Insulin Hm 40 - 45 unit SQ DAILY 05/17/18 08/21/18 History [Humulin 70/30 Kwikpen] Metformin HCl 1,000 mg PO BID 05/17/18 08/22/18 History Omeprazole [Omeprazole 40mg 40 mg PO DAILY 05/17/18 08/21/18 History Capsule] Plecanatide [Trulance] 3 mg PO DAILY 05/17/18 08/21/18 History Furosemide [Lasix 20mg tab] 20 mg PO DAILY 08/21/18 08/22/18 History Acetaminophen [Tylenol 500mg 1,000 mg PO Q6HP PRN 08/22/18 08/22/18 History tablet] Fluticasone Propionate [Flovent 2 puffs IN BID 08/22/18 08/22/18 History Hfa 110mcg Inhaler] Levalbuterol Tartrate [Xopenex Hfa] 2 puffs IH Q4HP PRN 08/22/18 08/22/18 History Promethazine HCl [Phenergan 12.5mg 12.5 mg RC Q8HP PRN 08/22/18 08/22/18 History Supp] metOLazone [metOLazone 2.5mg 2.5 mg PO DAILY 08/22/18 08/22/18 History Tablet] Prescriptions/Medication Reconciliation: Continued Exenatide Microspheres [Bydureon Pen] 2 mg SQ WEEKLY raNITIdine HCl [Ranitidine HCl] 300 mg PO DAILY Lisinopril [Lisinopril 2.5mg Tab] 2.5 mg PO DAILY Atorvastatin Calcium [Atorvastatin 40mg Tab] 40 mg PO HS Insulin NPH Hum/Reg Insulin Hm [Humulin 70/30 Kwikpen] 40 - 45 unit SQ DAILY Metformin HCl 1,000 mg PO BID Omeprazole [Omeprazole 40mg Capsule] 40 mg PO DAILY Fluticasone Propionate [Flovent Hfa 110mcg Inhaler] 2 puffs IN BID Levalbuterol Tartrate [Xopenex Hfa] 2 puffs IH Q4HP PRN PRN Reason: SHORTNESS OF AIR Promethazine HCl [Phenergan 12.5mg Supp] 12.5 mg RC Q8HP PRN PRN Reason: NAUSEA/VOMITING Propylene Glycol/Peg 400/Pf [Systane 0.3-0.4% Eye Drops] 1 each OP DAILYP PRN PRN Reason: dry eyes Plecanatide [Trulance] 3 mg PO DAILY Cetirizine HCl 10 mg PO DAILY Furosemide [Lasix 20mg tab] 20 mg PO DAILY Acetaminophen [Tylenol 500mg tablet] 1,000 mg PO Q6HP PRN PRN Reason: PAIN metOLazone [metOLazone 2.5mg Tablet] 2.5 mg PO DAILY
--- NOTE | 2018-08-23 09:47 | Cardiology Report ---
PROCEDURE: 2-D M-mode and color Doppler study INDICATIONS FOR THE TEST: Chest pain+ COPD Heart Murmur Tobacco Smoking Palpitations Fatigue Syncope Edema Hypertension+Diabetes Mellitus+ Rheumatic Fever SOB+ROBERTS Obesity+Hyperlipidemia+ Family History HD Additional History PATIENT INFORMATION HEIGHT: 62 WEIGHT:290 GENDER: Female B/P:154/75 2-D/M-MODE INTERPRETATION: 2-D MEASUREMENTS OBSERVED VALUES IN CMS Right Ventricular Dimension (RVDd) 2.6 Interventricular Septum (Thickness)(IVsd) 1.0 Left Ventricular Internal Dimensions(LVIDd) 5.1 Left Ventricular Posterior Wall (Thickness)(LVPWd) 1.0 Aortic Root 3.0 Aortic Cusp Separation 2.1 Left Atrial Dimensions (LAD) 3.0 2D 1. Left atrium is qualitatively mildly enlarged, left ventricle is normal size, mild concentric left ventricular hypertrophy, visually estimated ejection fraction 55% with no regional wall motion abnormality. 2. The right atrium and right ventricle are qualitatively mildly enlarged with normal contractility. 3. The aortic valve is minimally thickened and fibrosed. 4. The mitral and tricuspid valve are grossly normal. 5. The pulmonic valve is poorly visualized. 6. No significant pericardial effusion noted. DOPPLER INTERROGATION: Doppler interrogation of the aortic, mitral and tricuspid valve reveals presence of mild mitral and tricuspid regurgitation, calculated right ventricular systolic pressure is 45 mmHg consistent with moderate pulmonary hypertension, inferior vena cava is normal size with normal inspiratory collapse. Grade 1 diastolic dysfunction seen without tissue Doppler evidence of raised left atrial pressure. CONCLUSION: 1. Biatrial enlargement, normal left ventricular size, mild concentric left ventricular hypertrophy, visually estimated ejection fraction 55% with no regional wall motion abnormality, grade 1 diastolic dysfunction seen without tissue Doppler evidence of raised left atrial pressure. 2. Mildly enlarged right ventricle with normal contractility. 3. Mild mitral and tricuspid regurgitation, calculated right ventricular systolic pressure is 45 mmHg consistent with moderate pulmonary hypertension, inferior and active is normal size with normal inspiratory collapse. 4. No significant pericardial effusion noted.
== END 2018-08-22 18:41 | disposition home or self-care (01) ==
LOC: ER 19:10 → 2ND 19:10
PROVIDERS: ADMIT Internal Medicine Adolescent Medicine; ATTEND Internal Medicine Adolescent Medicine
CPT/HCPCS: 36415; 71020; 71046; 80048; 80076; 82962; 84484; 85025; 93005; 93306; 93458; 96365; 99152; 99283; C1725; C1760; C1769; G0378; J1644; Q9967

== ENCOUNTER → 2019-06-26 15:03 | Outpatient (CLI) | payer MEDICARE, MEDICAID, SELFPAY ==
--- NOTE | 2019-06-26 15:09 | XR_ITS ---
PROCEDURE: XR ANKLE LT MIN 3V CLINICAL INDICATION: ankle fracture Follow-up dislocation COMPARISON: ANKCMRT XR ankle RT min 3V from 04/25/2018 XR ANKLE LT MIN 3V from 06/19/2019 XR ANKLE LT MIN 3V from 06/19/2019 XR ANKLE RT 2V from 06/19/2019 FINDINGS: Studies obtained through a cast. There is good alignment. No evidence dislocation or other significant anomaly IMPRESSION: Good alignment. No evidence of dislocation Dictated by: Gab Owens MD 06/26/2019 16:34 Electronically signed by Gab Owens MD in [place] 06/26/2019 16:34
[2019-06-26 16:41] LABS: Basophils # 0.1 K/mm3 (0-0.2); Basophils % 0.7 % (0.1-2.0); Eosinophils # 0.2 K/mm3 (0.0-0.4); Eosinophils % 3.1 % (0.1-12.0); Hematocrit 39.1 % (37.0-47.0); Hemoglobin 12.4 g/dL (12.2-16.2); Mean Corpuscular HGB Conc 31.6 g/dL (31.8-35.4); Mean Corpuscular Volume 85.5 fl (81-99); Mean Platelet Volume 8.4 fl (7.4-10.4); Monocytes # 0.3 K/mm3 (0.1-1.0); Monocytes % 4.4 % (1.7-9.3); Neutrophils # 4.8 K/mm3 (1.8-7.8); Neutrophils % 64.8 % (37.0-80.0); Platelet Count 327 K/mm3 (142-424); Red Blood Count 4.57 M/mm3 (4.20-5.40); Red Cell Distribution Width 15.5 % (11.5-17.5); White Blood Count 7.4 K/mm3 (4.8-10.8)
[2019-06-26 16:51] LABS: Chloride 105 mmol/L (98-107)
[2019-06-26 16:52] LABS: Potassium 4.1 mmoL/L (3.5-5.1); Sodium 139 mmol/L (136-145)
[2019-06-26 16:54] LABS: Alanine Aminotransferase 15 U/L (12-78); Alkaline Phosphatase 93 U/L (38-126); Anion Gap 12.1 mEq/L (5-15); Aspartate Amino Transferase 23 U/L (14-36); Bilirubin,Total 0.5 mg/dl (0.2-1.3); Blood Urea Nitrogen 20 mg/dl (7-17); Carbon Dioxide 26 mmol/L (22.0-30.0); Cholesterol 128 mg/dl (140-200); Estimated Glomerular Filt Rate 103 ml/min (>60); GFR (African American) 125 ML/MIN (>60); Triglycerides 93 mg/dl (30-150); VLDL Cholesterol 19 mg/dL (0-40)
[2019-06-26 16:55] LABS: Albumin Level 3.6 g/dl (3.5-5.0); Albumin/Globulin Ratio 1.2 (1.1-1.8); Calcium 9.4 mg/dl (8.4-10.2); Chol/HDL Ratio 2.2 (1-3.5); Glucose 110 mg/dl (74-100); HDL Cholesterol 57 mg/dl (40-60); Total Protein,Serum 6.6 g/dl (6.3-8.2)
[2019-06-26 17:06] LABS: Direct LDL Cholesterol 50.33 mg/dL (100-129)
[2019-06-26 17:25] LABS: Hemoglobin A1C 7.1 % (4.0-6.0)
== END ==
PROVIDERS: PCP Internal Medicine Adolescent Medicine; Visit Provider Orthopaedic Surgery
DX: S93.05XA Dislocation of left ankle joint, initial encounter (principal); E78.5 Hyperlipidemia, unspecified; E11.69 Type 2 diabetes mellitus with other specified complication; Z79.4 Long term (current) use of insulin
CPT/HCPCS: 36415; 73610; 80053; 80061; 83036; 85025

== ENCOUNTER → 2019-07-16 12:31 | Outpatient (CLI) | payer MEDICARE, MEDICAID, SELFPAY ==
--- NOTE | 2019-07-16 12:35 | XR_ITS ---
PROCEDURE: XR ANKLE LT MIN 3V CLINICAL INDICATION: left ankle fracture, after cast removal COMPARISON: XR ANKLE LT MIN 3V from 06/19/2019 XR ANKLE LT MIN 3V from 06/19/2019 XR ANKLE RT 2V from 06/19/2019 FINDINGS: There has been removal the cast. There is anatomical positioning of the bony elements. There is some cortical irregularity of the medial malleolus. No lucent fracture line or dislocation is apparent. Soft tissue swelling is seen over both malleoli and throughout the soft tissues. Degenerative dorsal posterior and plantar calcaneal spurring is noted. IMPRESSION: No acute findings. Dictated by: Esau Chavez 07/16/2019 12:57 Electronically signed by Esau Chavez in [facility] 07/16/2019 12:57
== END ==
PROVIDERS: PCP Internal Medicine Adolescent Medicine; Visit Provider Orthopaedic Surgery
DX: S93.05XA Dislocation of left ankle joint, initial encounter (principal)
CPT/HCPCS: 73610

== ENCOUNTER 2019-07-16 13:24 | Outpatient (RCR) | payer MEDICARE, MEDICAID, SELFPAY | END 2019-07-16 14:00 | disposition home or self-care (01) | LOC: PT 13:24 | PROVIDERS: Visit Provider Orthopaedic Surgery | DX: S93.05XA Dislocation of left ankle joint, initial encounter (principal) | CPT/HCPCS: 97760 ==

== ENCOUNTER → 2019-08-06 13:27 | Outpatient (CLI) | payer MEDICARE, MEDICAID, SELFPAY ==
--- NOTE | 2019-08-06 13:30 | XR_ITS ---
PROCEDURE: XR ANKLE LT MIN 3V CLINICAL INDICATION: left ankle dislocation fu, out of cam walker boot Follow-up dislocation, pain and swelling COMPARISON: XR ANKLE LT MIN 3V from 06/19/2019 XR ANKLE RT 2V from 06/19/2019 XR ANKLE LT MIN 3V from 06/26/2019 XR ANKLE LT MIN 3V from 07/16/2019 FINDINGS: IMPRESSION: No acute findings. Dictated by: Gab Owens MD 08/06/2019 13:51 Electronically signed by Gab Owens MD in [facility] 08/06/2019 13:51
== END ==
PROVIDERS: PCP Internal Medicine Adolescent Medicine; Visit Provider Orthopaedic Surgery
DX: S93.05XD Dislocation of left ankle joint, subsequent encounter (principal)
CPT/HCPCS: 73610

== ENCOUNTER 2019-08-06 14:34 | Emergency (ER) | payer MEDICARE, MEDICAID, SELFPAY ==
[2019-08-06 14:50] VITALS: BP 155/85; PULSE 90; RESP 18; TEMP 36.8; O2SAT 97; BMI 54.8
--- NOTE | 2019-08-06 15:01 | CT_ITS ---
PROCEDURE: CT ABDOMEN PELVIS WO CON CLINICAL INDICATION: RT FLANK PAIN Right flank pain with nausea COMPARISON: ABDPELW CT ABD PELVIS W/ CONTRAST from 10/25/[address] abdomen pelvis wo con from 07/05/2018 TECHNIQUE: Axial images obtained with sagittal and coronal reformats. All CT scans at the facility use one or more dose reduction, viz: automated exposure control, ma/kV adjustment per patient size (including targeted exams where dose is matched to indication, i.e. head), or iterative reconstruction technique. FINDINGS: LOWER THORAX: No acute finding ABDOMEN & PELVIS: In the extreme hepatic dome there is a 5 mm hypodensity noted on image 7 series 3 nonspecific too small to categorize. Prior cholecystectomy. The spleen, adrenal glands, and pancreas have an unremarkable appearance. There are few small retroperitoneal lymph nodes as well as small mesenteric lymph nodes and ileocolic lymph nodes. Nonspecific low-density changes are present in the left kidney in the mid aspect anteriorly at approximately 1.8 cm. Nonemergent ultrasound may provide further evaluation. There is minimal ectasia of the right renal collecting system and right ureter which could be related to recently passed stone. A ureteral calculus is however not apparent. There is a small umbilical hernia which contains fat. No intestinal obstruction or free air. No evidence of appendicitis or diverticulitis. There are post hysterectomy changes. IMPRESSION: 1. Minimal ectasia of the right renal collecting system which could be due to recently passed stone. No renal or ureteral calculi are however apparent. 2. Subtle heterogeneous area of decreased attenuation in the left kidney anteriorly possibly related underlying cyst and may be confirmed with nonemergent renal ultrasound. 3. Scattered small retroperitoneal mesenteric and ileocolic nodes which are nonspecific. Dictated by: Gab Owens MD 08/06/2019 16:17 Electronically signed by Gab Owens MD in [place] 08/06/2019 16:17
[2019-08-06 15:22] LABS: Microscopic, Urine URINE MICROSCOPIC (MICROSCOPIC)
[2019-08-06 15:27] LABS: Appearance,Urine CLEAR (Clear); Bilirubin,Urine Negative (Negative); Blood, Urine Negative (Negative); Color,Urine YELLOW (Yellow); Glucose,Urine (UA) Negative (Negative); Ketones,Urine Negative (Negative); Leukocyte Esterase,Urine Negative (Negative); Nitrate,Urine Negative (Negative); Protein,Urine Negative (Negative); Urobilinogen,Urine 0.2 EU/dl (0.2)
[2019-08-06 15:31] LABS: Basophils # 0.1 K/mm3 (0-0.2); Basophils % 0.8 % (0.1-2.0); Eosinophils # 0.3 K/mm3 (0.0-0.4); Eosinophils % 3.4 % (0.1-12.0); Hematocrit 40.5 % (37.0-47.0); Hemoglobin 12.8 g/dL (12.2-16.2); Lymphocytes # 2.5 K/mm3 (0.7-4.5); Lymphocytes % 32.2 % (10-50); Mean Corpuscular HGB Conc 31.7 g/dL (31.8-35.4); Mean Corpuscular Hemoglobin 26.3 pg (27.0-31.2); Mean Platelet Volume 7.8 fl (7.4-10.4); Monocytes # 0.3 K/mm3 (0.1-1.0); Monocytes % 4.2 % (1.7-9.3); Neutrophils # 4.5 K/mm3 (1.8-7.8); Neutrophils % 59.3 % (37.0-80.0); Platelet Count 348 K/mm3 (142-424); Red Blood Count 4.87 M/mm3 (4.20-5.40); Red Cell Distribution Width 15.4 % (11.5-17.5); White Blood Count 7.6 K/mm3 (4.8-10.8)
[2019-08-06 15:34] LABS: Bacteria,Urine Trace /lpf; WBC,Urine Occasional #/hpf (0-3)
[2019-08-06 15:34] LABS: Chloride 103 mmol/L (98-107); Potassium 3.9 mmoL/L (3.5-5.1); Sodium 139 mmol/L (136-145)
--- NOTE | 2019-08-06 15:34 | HMH.EDGENADL ---
ED Disposition Clinical Impression: Right upper quadrant pain Disposition: Home, Self-Care Condition on Discharge: Good Instructions: DI for Abdominal Pain-Adult Additional Instructions: Additional instructions for ABDOMINAL PAIN: See your physician as soon as possible for further evaluation. Return immediately if worsening abdominal pain, vomiting, shortness of breath, fever, vomiting of blood or abdominal distention. Additional instructions for CONTROLLED SUBSTANCES: You have been prescribed a medication that is a controlled substance. Controlled substances include pain medications known as opiates and sedative nerve medications known as benzodiazepines. Tramadol, fioricet, and gabapentin are also controlled substances. Some common opiates include: Codeine (such as Tylenol #3) Hydrocodone (Vicodin, Lortab, Lorcet, [place]) Oxycodone (Percocet, Percodan, Oxycodone, Oxy IR) Some common benzodiazepines include: Diazepam (Valium) Lorazepam (Ativan) Alprazolam (Xanax) Clonazepam (Klonopin) Oxazepam (Serax) All of these controlled substances are highly addictive and frequently abused. Misuse can and frequently does lead to addiction as well as overdose and . Medication should be stored in a locked cabinet or other secure storage unit. Do not store the medication in a motor vehicle. Short term supplies, 3 days or less, are prescribed because of the highly addictive nature of the medication. Any of the controlled substance medication NOT taken should be disposed of properly and NOT SAVED. The recommended method of disposing of unused medications is: Place the medicines in a sealable plastic bag. If the medicine is a solid, crush it or add water to dissolve it. Add something undesirable (cat litter, coffee grounds, etc.) Dispose of sealed bag in household trash Do not flush or pour unused medicines down a sink or drain. Controlled substances should not be shared, given away or sold. Because of the addictive nature and frequent abuse, these medications are sometimes stolen. These medications should be kept in a safe place where they cannot be stolen. Do not keep them in your car or purse. Lost or stolen prescriptions for controlled substances WILL NOT BE REFILLED in this emergency department, regardless of whether a police report was filed. Prescriptions: Tramadol HCl [Tramadol 50mg Tab] 50 mg PO Q6HP PRN #12 tab PRN Reason: Moderate Pain Transmission Status: Sent to [facility] Referrals: Clarence Ram MD [Primary Care Provider] - - Critical Care Critical Care Time: No Attestation: On 08/06/19, the high probability of a clinically significant, sudden or life threatening deterioration of the following system(s) required my full and direct attention, intervention and personal management. The time I documented below is in addition to time spent performing reported procedures but includes the following listed in this critical care notation. Medical Decision Making - [place] Inquiry Pt receiving controlled substance: Yes [place] was queried for this patient: Yes Reference #:: [id number] Risks and benefits of using a controlled substance: were discussed with pt by me Comment: 2 rxs. Vital Signs: 08/06/19 14:50 Temperature 98.2 F Temperature Source Oral Pulse Rate [Right Radial] 90 Respiratory Rate 18 Blood Pressure [Right Arm] 155/85 H Blood Pressure Mean [Right Arm] 108 Blood Pressure Source [Right Arm] Automatic Cuff Blood Pressure Position [Right Arm] Sitting 02 Sat by Pulse Oximetry 97 Oxygen Delivery Method Room Air - Lab Data Lab Results 08/06/19 15:08: Urine Color Yellow, Urine Appearance Clear, Urine pH 6.0, Ur Specific [place] 1.020, Urine Protein Negative, Urine Glucose (UA) Negative, Urine Ketones Negative, Urine Blood Negative, Urine Nitrate Negative, Urine Bilirubin Negative, Urine Urobilinogen 0.2, Ur Leukocyte Esterase Negative, Urine WBC Occasion
[2019-08-06 15:36] LABS: Amylase 82 U/L (30-110)
[2019-08-06 15:37] LABS: Alanine Aminotransferase 13 U/L (12-78); Albumin Level 3.9 g/dl (3.5-5.0); Albumin/Globulin Ratio 1.1 (1.1-1.8); Alkaline Phosphatase 97 U/L (38-126); Anion Gap 8.9 mEq/L (5-15); Aspartate Amino Transferase 24 U/L (14-36); Bilirubin,Total 0.4 mg/dl (0.2-1.3); Blood Urea Nitrogen 14 mg/dl (7-17); Calcium 9.6 mg/dl (8.4-10.2); Carbon Dioxide 31 mmol/L (22.0-30.0); Creatinine Clearance Estimated 70 mL/min (50-200); Estimated Glomerular Filt Rate 86 ml/min (>60); GFR (African American) 104 ML/MIN (>60); Globulin 3.5 g/dL (1.3-3.2); Glucose 118 mg/dl (74-100); Lipase 69 U/L (23-300); Total Protein,Serum 7.4 g/dl (6.3-8.2)
[2019-08-06 16:27] LABS: D-Dimer 338 ng/mL (0-400)
[2019-08-06 16:28] LABS: Troponin I < 0.01 ng/ml (0.00-0.034)
--- NOTE | 2019-08-06 16:53 | ECG_ITS ---
APPROVED REPORT Exam: Resting ECG HR:67 bpm ECG Measurements Heart Rate 67 AXES MT 168 P 35 QRSd 90 QRS -25 QT 374 T 19 QTc 395 <Conclusion> Normal sinus rhythm Possible Left atrial enlargement Left ventricular hypertrophy Abnormal ECG Electronically signed by : Clarence Ram, 08/07/2019 17:16:42
[2019-08-06 17:37] VITALS: BP 137/89; PULSE 78; RESP 18; TEMP 36.8; O2SAT 99
== END 2019-08-06 17:45 | disposition home or self-care (01) ==
PROVIDERS: Emergency Provider Emergency Medicine; PCP Internal Medicine Adolescent Medicine
DX: R10.11 Right upper quadrant pain (principal); R11.0 Nausea; E11.9 Type 2 diabetes mellitus without complications; Z79.4 Long term (current) use of insulin; Z79.84 Long term (current) use of oral hypoglycemic drugs; I10 Essential (primary) hypertension; Z88.0 Allergy status to penicillin; Z88.5 Allergy status to narcotic agent; Z90.49 Acquired absence of other specified parts of digestive tract
CPT/HCPCS: 73610; 74176; 80053; 81001; 82150; 83690; 84484; 85025; 85378; 93005; 96374; 99283

== ENCOUNTER → 2019-09-10 08:26 | Outpatient (POV) | payer MEDICARE, MEDICAID, SELFPAY ==
[2019-09-10 08:42] VITALS: BP 130/91; PULSE 88; RESP 18; O2SAT 98; BMI 49.9
--- NOTE | 2019-09-10 09:38 | HMH.PMCON ---
Assessment and Plan (1) Postherpetic neuralgia Current visit: Yes Status: Chronic Category: Medical Code(s): B02.29 - Other postherpetic nervous system involvement - Assessment and plan all Dx Assessment and Plan for all problems:: We will schedule the patient for peripheral nerve block to help alleviate her postherpetic neuralgia. If we are unable to get insurance approval in regards to this we will do an epidural instead. Patient is not on any anticoagulation therapy. She is continuing her gabapentin and tramadol. She does state the only time that this works is when she takes it along with Phenergan to achieve a loopy feeling . I discussed that we would hopefully have her off of her gabapentin and tramadol if possible with these injections. I answered the patient's questions. I will follow-up with her after her injection reassess her symptoms at that time she has been instructed to call the office if she has any issues prior to her next appointment. Dr. Wilkinson has reviewed this note and agrees with this plan of care. This note was dictated using voice recognition software and may contain errors or omissions HPI - Data of Consult Consult date: 09/10/19 Requesting Physician: Renee Suero APRN Primary Care Provider: Clarence Ram MD - Consult Narrative Reason for consult: Postherpetic neuralgia History of present illness: Ms. Bosch is a 58 year old female presents today for a consultation in regards to her postherpetic neuralgia. She was diagnosed with shingles about a month ago she states. Patient has since had the shingles rash resolved however she is having some residual burning and itching in that area. She states it radiates into her right groin. Patient and I had a discussion in regards to this. She rates her pain a 4 out of 10. Patient and I discussed peripheral nerve blocks and potential epidural injections in regards to pain control. We discussed the potential of this pain becoming permanent. CC: Renee Suero APRN [facility] History I have reviewed the patient's past medical history: Yes Medical History: Reports:: Asthma, Depression, Diabetes Mellitus Type 2, Gastroesophageal Reflux Disease(GERD), Hyperlipidemia, Hypertension, Lung Disease (eitan), Migraine, MRSA Denies:: Cancer, Diabetes Mellitus Type 1, Internal Pacemaker, Seizures *Have you ever received a pneumonia vaccine?: Yes *Have you received a flu vaccine this season?: Yes Other Medical History: Reports: Anemia, Arthritis Laterality Cases: Bilateral: Other Other Surgeries: Yes: Cardiac Catheterization, Cholecystectomy, Colonoscopy, Hysterectomy-Total. No: Pacemaker Amputation: No Fractures: Yes - *Social History Smoking Status: Former smoker Tobacco Type: cigarettes # Packs/Day (cigarettes): 1 #Yrs smoked (if former smoker): 5 Alcohol Intake: never Alcohol Intake Frequency:: other Substance Use Type: denies use *Occupational Status:: other Housing: house Household Members: other *Travel in the last 8 weeks: None - Psychiatric History Pschychiatric History:: Reports:: Depression Family Hx:: Unable to obtain Review of Systems - Review of Systems ROS General: no recent weight change, no fever, no sleep disturbances Respiratory: no cough, no shortness of air, no recurring pulmonary infections Cardiovascular/Peripheral Vascular: No chest pain, No palpitations, no edema, no shortness of breath. Gastrointestinal: no new onset incontinence, normal bowel movements reported Genitourinary: no new onset incontinence Musculoskeletal: Right flank and groin pain secondary to shingles Psychiatric: normal mood/ affect Neurological: [denies new onset weakness in extremities], [denies new onset balance issues] Meds Home Medications Medication Instructions Recorded Confirmed Type Exenatide Microspheres [Bydureon 2 mg SQ WEEKLY 08/02/17 08/06/19 History Pen] Propylene Glycol/Peg 400/Pf 1 each OP DAILYP PRN 08/02/17
== END ==
PROVIDERS: PCP Internal Medicine Adolescent Medicine; Visit Provider Clinical Nurse Specialist Family Health
DX: B02.29 Other postherpetic nervous system involvement (principal)
CPT/HCPCS: 99202

== ENCOUNTER 2019-10-31 15:35 | Emergency (ER) | payer MEDICARE, MEDICAID, SELFPAY ==
[2019-10-31 15:59] VITALS: BP 124/83; PULSE 118; RESP 20; TEMP 36.8; O2SAT 98; BMI 57.2
--- NOTE | 2019-10-31 16:09 | HMH.EDUTC ---
[facility] [place] Disposition Clinical Impression: UTI (urinary tract infection) Qualifiers: Urinary tract infection type: site unspecified Hematuria presence: without hematuria Qualified Code(s): N39.0 - Urinary tract infection, site not specified Disposition: Home, Self-Care Condition on Discharge: Good Instructions: Urinary Tract Infection, DI for Urinary Tract Infection (UTI), Nitrofurantoin (Alternative Therapy), Nitrofurantoin Additional Instructions: *Increase fluids. Water not Soda or Tea *Start antibiotic immediately and be sure to take as ordered for the FULL length of time although you should start to see improvement over the next 48 hours Be SURE to follow up anytime for new or worsening symptoms with your family doctor. AND in 48 hours for urine culture results with your family doctor, if you do not have a doctor then you may call back to the [facility] for urine culture results and further treatment. We do recommend that you choose and establish care with a Primary Care Physician. AND follow up with them in 10-14 days to repeat UA to ensure infection is resolved and blood no longer present *Be sure to let your PCP know that we sent urine cultures from the [facility] so they can follow up to ensure that you area the on the correct antibiotic Call your doctor office and make appointment for 48 hours (2 days from today) to follow up and get the results of your urine culture and further treatment Follow up with Family Doctor if no improvement or any worsen of symptoms Return if needed Straight to ER if any life threatening sympotms Prescriptions: Nitrofurantoin Monohyd/M-Cryst [Macrobid 100 mg Capsule] 100 mg PO BID 10 Days #20 cap Transmission Status: Pending to [facility] Referrals: Clarence Ram MD [Primary Care Provider] - As needed Time of Disposition: 16:21 Medical Decision Making - Wil[place] Inquiry Pt receiving controlled substance: No [place] was queried for this patient: No Vital Signs: 10/31/19 15:59 Temperature 98.2 F Temperature Source Oral Pulse Rate [Right Brachial] 118 H Respiratory Rate 20 Blood Pressure [Right Arm] 124/83 Blood Pressure Mean [Right Arm] 96 Blood Pressure Source [Right Arm] Automatic Cuff Blood Pressure Position [Right Arm] Sitting 02 Sat by Pulse Oximetry 98 Oxygen Delivery Method Room Air - Lab Data Lab results reviewed: Yes: I reviewed the patient's lab results. Orders (Tests/Meds): ORDERS Category Date Time Status Urine Culture Stat Micro 10/31/19 16:[address] [facility] [place] HPI - General Stated complaint: Possible UTI Time Seen by Provider: 10/31/19 16:09 Mode of Arrival: Ambulatory Source of Information: Patient Limitations: No Limitations Description of Symptoms (Recalled from Triage Doc. by RN): PATIENT C/O PAIN WITH URINATION, URINARY FREQUENCY, AND LOW-GRADE FEVERS AT NIGHT HEENT Symptoms (Recalled from RN notes): No Resp Symptoms (Recalled from RN notes): No Skin Symptoms (Recalled from RN notes): No MS Symptoms (Recalled from RN notes): No Functional Status (Recalled from RN notes): WNL - History of Present Illness Provider Complaint: Patient states that she thing she may have a UTI States that she has been having burning with urination, feeling of urgency and freqency and noticed her urine had a strong smell States that she thinks she may have had a low grade fever the last couple of nights and feels like it did before when she has had UTI - Related Data Home Medications Medication Instructions Recorded Confirmed Exenatide Microspheres [Bydureon 2 mg SQ WEEKLY 08/02/17 08/06/19 Pen] Propylene Glycol/Peg 400/Pf 1 each OP DAILYP PRN 08/02/17 08/06/19 [Systane 0.3-0.4% Eye Drops] raNITIdine HCL [Ranitidine HCl] 300 mg PO DAILY 12/17/17 08/06/19 Atorvastatin Calcium [Lipitor 40mg 40 mg PO HS 05/17/18 08/06/19 Tab] Cetirizine HCl 10 mg PO DAILY 05/17/18 08/06/19 Insulin NPH Hum/Reg Insulin Hm 40 - 45 unit SQ DAILY 05/17/18 08/06/19 [Humu
[2019-10-31 16:16] LABS: Apearance,Urine Clear (Clear); Color,Urine Yellow (Yellow); PH,Urine 5.5 (5.0-8.5); Protein,Urine Negative (Negative)
[2019-10-31 16:17] LABS: Bilirubin,Urine Negative (Negative); Blood, Urine Negative (Negative); Glucose,Urine (UA) Negative (Negative); Ketones,Urine Negative (Negative); UTC Leukocyte Esterase,Urine 2+ (Negative); UTC Nitrate,Urine Negative (Negative); Urobilinogen,Urine 0.2 EU/dl (0.2)
[2019-10-31 16:32] VITALS: BP 124/83; PULSE 118; RESP 20; TEMP 36.8; O2SAT 98
== END 2019-10-31 16:35 | disposition home or self-care (01) ==
PROVIDERS: Emergency Provider Nurse Practitioner; PCP Internal Medicine Adolescent Medicine
DX: N30.00 Acute cystitis without hematuria (principal); E11.9 Type 2 diabetes mellitus without complications; K21.9 Gastro-esophageal reflux disease without esophagitis; E78.5 Hyperlipidemia, unspecified; I10 Essential (primary) hypertension; F33.1 Major depressive disorder, recurrent, moderate; Z79.899 Other long term (current) drug therapy; Z87.891 Personal history of nicotine dependence
CPT/HCPCS: 81003; 87086; 87088; 87186; 99201

== ENCOUNTER 2019-11-01 09:18 | Day surgery (SDC) | payer MEDICARE, MEDICAID, SELFPAY ==
[2019-11-01 09:25] VITALS: BP 102/70; PULSE 104; RESP 18; TEMP 36.2; O2SAT 92; BMI 57.0
[2019-11-01 09:29] VITALS: BP 142/85; PULSE 66; RESP 18
--- NOTE | 2019-11-01 09:37 | P.PCN_ITS ---
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 Her rash is resolved. She had shingles approximately a month ago. Most of her pain is over the right buttock area and into the right groin. She is scheduled for a peripheral nerve block today. I talked to the patient we will do a right peripheral nerve block over the right buttock area which is where most of her pain and burning occur. If she gets relief from this we will do a repeat peripheral nerve block next week. If she does not get relief we will do a lumbar epidural sympathetic block at L5- S1 on the right side. Procedure Details:: Peripheral nerve block right buttock area Informed consent was obtained risk and benefits of the procedure were explained to the patient. Patient was taken to the procedure room. The right buttock area was prepped using ChloraPrep. A 25-gauge needle was used and we inject 10 mL bupivacaine 0.25% over the previous rash in the right buttock area. We did not use steroid as the patient recently started an antibiotic for urinary tract infection. Patient tolerated procedure well with no complications. Plan and Disposition:: We will follow-up with her this week. We will plan on either repeat peripheral nerve block if this was helpful or a lumbar epidural sympathetic block at L5-S1 on the right side.
[2019-11-01 09:39] VITALS: BP 145/85; BP 152/89; PULSE 88; RESP 18; O2SAT 98
[2019-11-01 09:43] VITALS: BP 105/65; PULSE 94; RESP 20; O2SAT 93
== END 2019-11-01 09:45 | disposition home or self-care (01) ==
LOC: SC.PAINP 09:19
PROVIDERS: PCP Internal Medicine Adolescent Medicine; Visit Provider Anesthesiology
DX: B02.29 Other postherpetic nervous system involvement (principal); I10 Essential (primary) hypertension; K21.9 Gastro-esophageal reflux disease without esophagitis; E11.9 Type 2 diabetes mellitus without complications; J44.9 Chronic obstructive pulmonary disease, unspecified; F41.9 Anxiety disorder, unspecified; F32.9 Major depressive disorder, single episode, unspecified; G43.909 Migraine, unspecified, not intractable, without status migrainosus; E66.2 Morbid (severe) obesity with alveolar hypoventilation; Z68.43 Body mass index [BMI] 50.0-59.9, adult; N17.9 Acute kidney failure, unspecified; Z79.899 Other long term (current) drug therapy
CPT/HCPCS: 64450; Q9966

== ENCOUNTER → 2019-11-05 15:29 | Outpatient (CLI) | payer MEDICARE, MEDICAID, SELFPAY ==
[2019-11-05 16:21] LABS: Basophils # 0.1 K/mm3 (0-0.2); Basophils % 0.9 % (0.1-2.0); Eosinophils # 0.2 K/mm3 (0.0-0.4); Eosinophils % 1.9 % (0.1-12.0); Hematocrit 39.5 % (37.0-47.0); Hemoglobin 13.1 g/dL (12.2-16.2); Lymphocytes # 2.4 K/mm3 (0.7-4.5); Lymphocytes % 27.6 % (10-50); Mean Corpuscular HGB Conc 33.1 g/dL (31.8-35.4); Mean Corpuscular Hemoglobin 26.5 pg (27.0-31.2); Mean Corpuscular Volume 79.9 fl (81-99); Mean Platelet Volume 7.9 fl (7.4-10.4); Monocytes # 0.5 K/mm3 (0.1-1.0); Monocytes % 5.5 % (1.7-9.3); Neutrophils # 5.6 K/mm3 (1.8-7.8); Neutrophils % 64.2 % (37.0-80.0); Platelet Count 371 K/mm3 (142-424); Red Blood Count 4.94 M/mm3 (4.20-5.40); Red Cell Distribution Width 15.9 % (11.5-17.5); White Blood Count 8.7 K/mm3 (4.8-10.8)
[2019-11-05 18:11] LABS: Chloride 91 mmol/L (98-107); Potassium 3.4 mmoL/L (3.5-5.1); Sodium 132 mmol/L (136-145)
[2019-11-05 18:13] LABS: Blood Urea Nitrogen 21 mg/dl (7-17); Estimated Glomerular Filt Rate 74 ml/min (>60); GFR (African American) 89 ML/MIN (>60)
[2019-11-05 18:14] LABS: Alanine Aminotransferase 48 U/L (12-78); Alkaline Phosphatase 132 U/L (38-126); Anion Gap 10.4 mEq/L (5-15); Aspartate Amino Transferase 36 U/L (14-36); Bilirubin,Total 0.6 mg/dl (0.2-1.3); Calcium 8.6 mg/dl (8.4-10.2); Carbon Dioxide 34 mmol/L (22.0-30.0); Globulin 3.1 g/dL (1.3-3.2); Glucose 175 mg/dl (74-100); Total Protein,Serum 6.1 g/dl (6.3-8.2)
[2019-11-05 18:21] LABS: NT Pro Brain Natriuretic Pep. 120 pg/mL (0-125)
== END ==
PROVIDERS: Visit Provider Internal Medicine Adolescent Medicine
DX: I50.33 Acute on chronic diastolic (congestive) heart failure (principal)
CPT/HCPCS: 36415; 80053; 83880; 85025

== ENCOUNTER 2019-11-06 17:20 | Observation (INO) | payer MEDICARE, MEDICAID, SELFPAY ==
[2019-11-06] VITALS (9 sets, daily range): BP systolic 97–137; BP diastolic 66–78; PULSE 78–103; RESP 18–25; TEMP 36.8–37.2; O2SAT 87–96; BMI 57.0; BMI 56.2
--- NOTE | 2019-11-06 17:32 | ECG_ITS ---
APPROVED REPORT Exam: Resting ECG HR:99 bpm ECG Measurements Heart Rate 99 AXES LA 154 P 28 QRSd 96 QRS -37 QT 344 T 55 QTc 441 <Conclusion> Normal sinus rhythm Possible Left atrial enlargement Left axis deviation,LAHB Incomplete RBBB Abnormal ECG Electronically signed by : Hadley Ortega, 11/08/2019 19:59:33
--- NOTE | 2019-11-06 17:48 | XR_ITS ---
PROCEDURE: XR CHEST PORTABLE CLINICAL HISTORY: SOB COMPARISON: CXR CHEST(2 VIEWS-NOT PORTABLE) from 01/30/2015 CXR CHEST(2 VIEWS-NOT PORTABLE) from 05/02/2015 CXR2V XR chest 2V from 08/21/2018 FINDINGS: The cardiomediastinal silhouette and pulmonary vascularity are within normal limits. There is some minimal blunting of the left CP angle suggesting small left effusion with slight increased density in the left lung base in the retrocardiac region. No acute bony abnormalities. IMPRESSION: Left lower lobe atelectasis or infiltrate with small left effusion Dictated by: Gab Owens MD 11/06/2019 20:28 Electronically signed by Gab Owens MD in [place] 11/06/2019 20:28
--- NOTE | 2019-11-06 17:51 | HMH.EDGENADL ---
ED Disposition Clinical Impression: Pulmonary hypertension, Hypokalemia Respiratory failure with hypoxia Qualifiers: Chronicity: acute Qualified Code(s): J96.01 - Acute respiratory failure with hypoxia Disposition: Admitted as Observation Condition on Discharge: Fair Referrals: Clarence Ram MD [Primary Care Provider] - - Critical Care Critical Care Time: Yes Attestation: On , the high probability of a clinically significant, sudden or life threatening deterioration of the following system(s) required my full and direct attention, intervention and personal management. The time I documented below is in addition to time spent performing reported procedures but includes the following listed in this critical care notation. Total Critical Care Time: 30 Vital system(s) involved:: Respiratory Failure My critical care processes included: Assessment & monitoring of V/S, Initial and Re-exams, Data Review/Interpretation, Coordinating Care, Medication Orders and management, Documentation Medical Decision Making - Medical Records Medical records reviewed: Yes: I reviewed the patient's medical records. - Wil[place] Inquiry Pt receiving controlled substance: No Vital Signs: 11/06/19 17:28 11/06/19 18:02 11/06/19 18:36 Temperature 98.9 F Temperature Source Oral Pulse Rate [Left] 78 97 H 96 H Respiratory Rate 22 Blood Pressure [Right Arm] 122/76 102/66 L 99/67 L Blood Pressure Mean [Right Arm] 91 78 77 Blood Pressure Source [Right Arm] Automatic Cuff Automatic Cuff Automatic Cuff Blood Pressure Position [Right Arm] Sitting Sitting Sitting 02 Sat by Pulse Oximetry 87 L 96 94 L Oxygen Delivery Method Room Air Nasal Cannula Nasal Cannula Oxygen Flow Rate (LPM) 2 2 - Lab Data Lab results reviewed: Yes: I reviewed the patient's lab results. Lab Results 11/06/19 17:59: WBC 8.0, RBC 4.89, Hgb 12.9, Hct 39.0, MCV 79.7 L, MCH 26.4 L, MCHC 33.1, RDW 16.1, Plt Count 381, MPV 7.5, Neut % (Auto) 63.0, Lymph % (Auto) 26.7, Casey % (Auto) 7.2, Eos % (Auto) 2.0, Baso % (Auto) 1.1, Neut # (Auto) 5.0, Lymph # (Auto) 2.1, Casey # (Auto) 0.6, Eos # (Auto) 0.2, Baso # (Auto) 0.1 11/06/19 17:59: Sodium 131 L, Potassium 2.7 L* D, Chloride 88 L, Carbon Dioxide 37 H, Anion Gap 8.7, BUN 21 H, Creatinine 1.10 H D, Estimated Creat Clear 45, Estimated GFR 51 L, Est GFR ( Amer) 62 D, Glucose 199 H, Calcium 8.5, Total Bilirubin 0.5, AST 36, ALT 52, Alkaline Phosphatase 124, Troponin I < 0.01, NT-Pro-B Natriuret Pep 107, Total Protein 6.2 L, Albumin 3.1 L, Globulin 3.1, Albumin/Globulin Ratio 1.0 L 11/06/19 17:59: Lactate 2.9 H 11/06/19 17:59: SARS-CoV-2 IgG Ab (Rapid) Negative, SARS-CoV-2 IgM Ab (Rapid) Negative Result diagrams: 11/06/19 17:59 11/06/19 17:59 Orders (Tests/Meds): ED MEDICATIONS Discontinued Medications Generic Name Dose Route Start Last Admin Trade Name Freq PRN Reason Stop Dose Admin Albuterol/Ipratropium 3 ml 11/06/19 19:16 11/06/19 19:42 Duoneb 3ml Neb IH 11/06/19 19:17 Not Given ONCE ONE Ioversol 70 ml 11/06/19 19:41 11/06/19 19:42 Rad-Optiray 350 100ml Vial IV 11/06/19 19:42 70 ml ONCE ONE Administration Protocol Potassium Chloride 60 meq 11/06/19 19:18 11/06/19 19:42 Klor-Con 20meq Tablet PO 11/06/19 19:19 60 meq ONCE ONE Administration Sodium Chloride 10 ml 11/06/19 19:41 11/06/19 19:42 Rad-Saline Flush 10ml Syringe IV 11/06/19 19:42 10 ml ONCE ONE Administration Sodium Chloride 50 ml 11/06/19 19:41 11/06/19 19:42 Rad-Ns 50ml Vial IV 11/06/19 19:42 50 ml ONCE ONE Administration ORDERS Category Date Time Status CTA Chest [CT angio chest] Stat Cat Scan 11/06/19 19:10 Taken XR chest portable Stat Exams 11/06/19 17:48 Taken Respiratory Panel (COVID), PCR Stat Lab 11/06/19 19:20 Received Troponin I Q3H Lab 11/06/19 21:00 Ordered Troponin I Q3H Lab 11/07/19 00:00 Ordered Blood Culture Stat Micro 11/06/19 17:59 Received -
[2019-11-06 18:11] LABS: Basophils # 0.1 K/mm3 (0-0.2); Basophils % 1.1 % (0.1-2.0); Eosinophils # 0.2 K/mm3 (0.0-0.4); Hemoglobin 12.9 g/dL (12.2-16.2); Lymphocytes # 2.1 K/mm3 (0.7-4.5); Lymphocytes % 26.7 % (10-50); Mean Corpuscular HGB Conc 33.1 g/dL (31.8-35.4); Mean Corpuscular Hemoglobin 26.4 pg (27.0-31.2); Mean Corpuscular Volume 79.7 fl (81-99); Mean Platelet Volume 7.5 fl (7.4-10.4); Monocytes # 0.6 K/mm3 (0.1-1.0); Monocytes % 7.2 % (1.7-9.3); Platelet Count 381 K/mm3 (142-424); Red Blood Count 4.89 M/mm3 (4.20-5.40); Red Cell Distribution Width 16.1 % (11.5-17.5)
[2019-11-06 18:13] LABS: Chloride 88 mmol/L (98-107)
[2019-11-06 18:14] LABS: Sodium 131 mmol/L (136-145)
[2019-11-06 18:15] LABS: Potassium 2.7 mmoL/L (3.5-5.1)
[2019-11-06 18:16] LABS: Alanine Aminotransferase 52 U/L (12-78); Albumin Level 3.1 g/dl (3.5-5.0); Alkaline Phosphatase 124 U/L (38-126); Anion Gap 8.7 mEq/L (5-15); Aspartate Amino Transferase 36 U/L (14-36); Bilirubin,Total 0.5 mg/dl (0.2-1.3); Blood Urea Nitrogen 21 mg/dl (7-17); Carbon Dioxide 37 mmol/L (22.0-30.0); Creatinine Clearance Estimated 45 mL/min (50-200); Estimated Glomerular Filt Rate 51 ml/min (>60); GFR (African American) 62 ML/MIN (>60); Globulin 3.1 g/dL (1.3-3.2); Total Protein,Serum 6.2 g/dl (6.3-8.2)
[2019-11-06 18:17] LABS: Calcium 8.5 mg/dl (8.4-10.2); Glucose 199 mg/dl (74-100)
[2019-11-06 18:18] LABS: Lactic Acid 2.9 mmol/L (0.7-2.1)
[2019-11-06 18:26] LABS: NT Pro Brain Natriuretic Pep. 107 pg/mL (0-125)
[2019-11-06 18:30] LABS: Troponin I < 0.01 ng/ml (0.00-0.034)
--- NOTE | 2019-11-06 19:10 | CT_ITS ---
PROCEDURE: CT ANGIO CHEST CLINCIAL INDICATION: hypoxia, soa Hypoxia, shortness of air, former smoker COMPARISON: No exams were available for comparison TECHNIQUE: IV Contrast: 70ML OPTIRAY 350 Axial images obtained with sagittal and coronal reformats. All CT scans at the facility use one or more dose reduction, viz: automated exposure control, ma/kV adjustment per patient size (including targeted exams where dose is matched to indication, i.e. head), or iterative reconstruction technique. FINDINGS: HEART AND MEDIASTINAL STRUCTURES: Less than optimal pulmonary arterial opacification is noted due to bolus timing. No obvious central pulmonary embolus apparent. No evidence of aortic aneurysm or dissection. LUNGS AND PLEURAL SPACES: There are mild atelectatic or fibrotic changes in the left lung base BONY STRUCTURES: No acute bony abnormalities apparent. UPPER ABDOMEN: Mild nonspecific thickening noted involving the distal esophagus at the GE junction. Prior cholecystectomy. ADDITIONAL FINDINGS: No other significant abnormalities. IMPRESSION: 1. Minimal atelectatic change in left lung base. 2. Otherwise negative Dictated by: Gab Owens MD 11/07/2019 09:28 Electronically signed by Gab Owens MD in [place] 11/07/2019 09:28
[2019-11-06 19:47] LABS: Coronavirus 19 IgG Antibody Negative (Negative); Coronavirus 19 IgM Antibody Negative (Negative)
[2019-11-06 19:54] LABS: Adenovirus,PCR Not Detected (NotDetected); Bordetella Pertussis Not Detected (NotDetected); Chlamydophila Pneumoniae, PCR Not Detected (NotDetected); Coronavirus 19, PCR Not Detected (NotDetected); Coronavirus 229E Not Detected (NotDetected); Coronavirus NL63 Not Detected (NotDetected); Coronavirus OC43 Not Detected (NotDetected); Coronovirus HKU1,PCR Not Detected (NotDetected); Human Metapneumovirus Not Detected (NotDetected); Influenza A, PCR Not Detected (NotDetected); Influenza AH1, 2009 Not Detected (NotDetected); Influenza AH1, PCR Not Detected (NotDetected); Influenza AH3,PCR Not Detected (NotDetected); Influenza B, PCR Not Detected (NotDetected); Mycoplasma Pneumoniae, PCR Not Detected (NotDected); Parainfluenza 1, PCR Not Detected (NotDetected); Parainfluenza 2, PCR Not Detected (NotDetected); Parainfluenza 3, PCR Not Detected (NotDetected); Parainfluenza 4, PCR Not Detected (NotDetected); Respiratory Syncytial Virus Not Detected (NotDetected); Rhinovirus/Enterovirus Not Detected (NotDetected)
[2019-11-06 22:06] LABS: Troponin I < 0.01 ng/ml (0.00-0.034)
[2019-11-06 22:06] LABS: Reflex Lactic Add Lactic Reflex
--- NOTE | 2019-11-06 22:50 | PC.NURSE ---
PT ARRIVED TO FLOOR VIA W/C FROM ED [id number]
[2019-11-07] VITALS (11 sets, daily range): BP systolic 109–133; BP diastolic 59–76; PULSE 90–112; RESP 16–20; TEMP 36.5–36.8; O2SAT 91–94
[2019-11-07 00:39] LABS: POC Glucose,Bedside 216 (70-110)
[2019-11-07 01:40] LABS: Troponin I < 0.01 ng/ml (0.00-0.034)
--- NOTE | 2019-11-07 01:48 | PC.NURSE ---
Pt's room air sat at rest = 87%.
--- NOTE | 2019-11-07 06:04 | PC.NURSE ---
A&OX4. PT HAS TOLERATED 2L NC WELL THROUGHOUT SHIFT. RESPIRATIONS REGULAR AND UNLABORED. LUNG SOUNDS BILATERALLY CLEAR. NO COUGH NOTED. +2 NONPITTING EDEMA NOTED TO BLE. HAND STUDY SPECIALIST EQUAL. PT IS INDEPENDENT WITH ADL'S AND TOLERATES WELL. PT HAS REMAINED ON TELE THROUGHOUT SHIFT. ACTIVE BOWEL SOUNDS HEARD IN ALL 4 QUADRANTS. SOFT AND NONTENDER. NO REPORTS OF PAIN OR SOB THROUGHOUT SHIFT. BED IN LOWEST POSITION. CALL LIGHT WITHIN REACH. PT RESTING IN BED. VSS. NO CONCERNS AT THIS TIME. WILL CONTINUE TO MONITOR.
[2019-11-07 06:34] LABS: POC Glucose,Bedside 107 (70-110)
--- NOTE | 2019-11-07 07:00 | CA_ITS ---
APPROVED REPORT EXAM: Comprehensive 2D, Doppler, and color-flow Echocardiogram Electronics Maintenance Technician: Benita Castro CRT Ht: 5 ft 2 in Wt: 312lbs BSA: 2.31 BP: 99/67 mmHg Indications: Shortness of Breath, Diabetes, Pericardial Effusion, Hyperlipidemia, GERD 2D Dimensions LVOT 1.92 cm (M/F) 1.5-2.5 M-Mode Dimensions RVDd 3.18 cm (0.9-2.6) LVDd 4.07 cm (3.5-5.7) LVDs 2.86 cm (3.5-5.7) IVSd 1.25 cm (0.6-1.1) PWd 1.00 cm (0.6-1.1) EF (Teich) 57.30% FS 29.70% EDV (Teich) 72.90 mL ESV (Teich) 31.10 mL LV Diastology E/A Ratio 0.66 Mitral Valve MV A Velocity 80.00 (40-130 cm/s) Left Ventricle Left atrium is normal size, left ventricle is normal size, there is no concentric left ventricular hypertrophy, visually estimated ejection fraction 55% with no regional wall motion abnormality, grade 1 diastolic dysfunction seen without tissue Doppler evidence of raise left atrial pressure. Right Ventricle Right atrium and right ventricle are mildly enlarged with normal contractility. Aortic Valve Aortic valve is grossly normal, there is no aortic stenosis or aortic insufficiency. Mitral Valve Mitral valve is grossly normal, there is mild mitral regurgitation. Tricuspid Valve Tricuspid valve is grossly normal, there is mild tricuspid regurgitation, tricuspid regurgitation jet velocity is inadequate for calculation of the right ventricular systolic pressure. Pulmonic Valve Pulmonic valve is poorly visualized. Great Vessels Aortic root is normal size. Pericardium No significant pericardial effusion noted. Conclusion 1. Normal left ventricular size, preserved left ventricular systolic function, visually estimated ejection fraction 55% with no regional wall motion abnormality, grade 1 diastolic dysfunction seen without tissue Doppler evidence of raise left atrial pressure. 2. Mildly enlarged right ventricle with normal contractility. 3. Mild mitral and tricuspid regurgitation. 4. No significant pericardial effusion noted. Electronically signed by : Nhan Fierro, 11/07/2019 11:59:43
[2019-11-07 07:13] LABS: Chloride 90 mmol/L (98-107); Sodium 133 mmol/L (136-145)
[2019-11-07 07:16] LABS: Blood Urea Nitrogen 18 mg/dl (7-17); Creatinine Clearance Estimated 52 mL/min (50-200); Estimated Glomerular Filt Rate 65 ml/min (>60); GFR (African American) 78 ML/MIN (>60)
[2019-11-07 07:17] LABS: Anion Gap 5.6 mEq/L (5-15); Calcium 8.1 mg/dl (8.4-10.2); Glucose 105 mg/dl (74-100)
--- NOTE | 2019-11-07 07:20 | P.CONPHA_ITS ---
[facility] Pharm[facility] VTE Monitoring - Patient Demographics Admission date: 11/06/19 Report Date: 11/07/19 Time: 07:21 Allergies/Adverse Reactions: Patient Allergies hydromorphone [HYDROMORPHONE] Allergy (Mild, Verified 11/01/19 09:24) ITCHING OF FACE/NOSE morphine [MORPHINE] Allergy (Mild, Verified 11/01/19 09:24) SHAKING penicillin G [PENICILLIN G] Allergy (Mild, Verified 11/01/19 09:24) Rash Fish Containing Products Adverse Reaction (Mild, Verified 11/01/19 09:24) Nausea Height: 1.57 m Weight: 138.799 kg Patient Problems: Current Active Problems Hypokalemia (Acute) Pulmonary hypertension (Acute) Respiratory failure with hypoxia (Acute) - VTE Risk Labs: VTE Related Lab Results Hgb 12.9 g/dL (12.2-16.2) 11/06/19 17:59 Hct 39.0 % (37.0-47.0) 11/06/19 17:59 Plt Count 381 K/mm3 (142-424) 11/06/19 17:59 BUN 21 mg/dl (7-17) H 11/06/19 17:59 Creatinine 1.10 mg/dl (0.52-1.04) H D 11/06/19 17:59 Estimated Creat Clear 45 mL/min (50-200) 11/06/19 17:59 VTE Score: 4 Clinical Trial Participant: No - Prophylaxis VTE Prophylaxis Ordered?: Yes Types of VTE Prophylaxis: TEDS Knee High
[2019-11-07 07:26] LABS: Carbon Dioxide 40 mmol/L (22.0-30.0); Potassium 2.6 mmoL/L (3.5-5.1)
--- NOTE | 2019-11-07 08:20 | PC.NURSE ---
CRE SWAB OBTAINED AND SENT TO LAB
--- NOTE | 2019-11-07 08:21 | HMH.HP ---
*Admission Date: 11/06/19 *Chief complaint: Myalgias, shortness of breath *History of present illness: 58-year-old female with multiple comorbidities including morbid obesity, diabetes, CHF with diastolic dysfunction, hypertension, and WILEY. She presented to the ER yesterday due to muscle aches and fatigue. She was seen in clinic on Monday where she presented due to worsening shortness of breath and swelling in her legs. She complains of worsening orthopnea and dyspnea with exertion over the past 2 to 3 weeks. In clinic she was instructed to increase her diuretic (Lasix) to 60 mg daily to increase diuresis and help with suspected volume overload. Labs were obtained showing baseline kidney function of 0.8. Upon presentation to the ER she was noted to have hypotension, acute kidney injury with increase of greater than 20% her baseline creatinine, hypokalemia, and concern for Sirs with tachycardia, tachypnea, hypotension, and DEE. No clearly identified source however did have suspected atelectasis versus opacification of left lower lung. Mild hypoxia necessitating 2 L oxygen on admission. Admitted for observation and further management. On interview this morning, she states she feels a little bit better from clinic on Monday. Dyspnea not as bad. Echocardiogram obtained, EKG obtained, CT chest obtained, formal reads pending. Denies chest pain, syncope, confusion, nausea, or vomiting. Sitting in bedside chair on interview tolerating breakfast on room air [facility] History I have reviewed the patient's past medical history: Yes Medical History: Reports:: Asthma, Depression, Diabetes Mellitus Type 2, Gastroesophageal Reflux Disease(GERD), Hyperlipidemia, Hypertension, Lung Disease (wiley), Migraine Denies:: Cancer, Diabetes Mellitus Type 1, Internal Pacemaker, MRSA, Seizures *Have you ever received a pneumonia vaccine?: Yes *Have you received a flu vaccine this season?: Yes Other Medical History: Reports: Anemia, Arthritis, Blood Transfusion Reaction, Cataracts Laterality Cases: Bilateral: Other Other Surgeries: Yes: Cardiac Catheterization, Cholecystectomy, Colonoscopy, Hysterectomy-Total. No: Pacemaker Amputation: No Fractures: Yes - *Social History Last grade of school completed: Some college Smoking Status: Former smoker Tobacco Type: cigarettes # Packs/Day (cigarettes): 1 #Yrs smoked (if former smoker): 42 Smoking End Date: 2017 Alcohol Intake: never Alcohol Intake Frequency:: other Substance Use Type: denies use *Occupational Status:: disabled Housing: apartment Household Members: none *Travel in the last 8 weeks: None - Psychiatric History Pschychiatric History:: Reports:: Depression Family Hx:: Cancer, Diabetes, Heart Attack, Stroke Review of Systems - Review of Systems Review of systems:: pertinent systems reviewed and negative unless documented below (14 point review of systems performed, pertinent positives and negatives as per HPI) Meds Home Medications Medication Instructions Recorded Confirmed Type Exenatide Microspheres [Bydureon 2 mg SQ WEEKLY 08/02/17 11/07/19 History Pen] Atorvastatin Calcium [Lipitor 40mg 40 mg PO HS 05/17/18 11/07/19 History Tab] Cetirizine HCl 10 mg PO DAILY 05/17/18 11/07/19 History Insulin NPH Hum/Reg Insulin Hm 40 - 45 unit SQ DAILY 05/17/18 11/07/19 History [Humulin 70/30 Kwikpen] Omeprazole [Omeprazole 40mg 40 mg PO DAILY 05/17/18 11/07/19 History Capsule] Furosemide [Lasix 20mg tablet] 20 mg PO DAILY 08/21/18 11/07/19 History Levalbuterol Tartrate [Xopenex Hfa] 2 puffs IH Q4-6H PRN 08/22/18 11/07/19 History metOLazone [metOLazone 2.5mg 2.5 mg PO DAILY 08/22/18 11/07/19 History Tablet] Ibuprofen [Ibuprofen 600mg 600 mg PO Q6H 11/01/19 11/07/19 History Tablet] Losartan Potassium 0.5 tab PO DAILY 11/07/19 11/07/19 History Potassium Chloride [K-Tab ER 10 10 meq PO DAILY 11/07/19 11/07/19 History mEq] Promethazine HCl [Phenergan 25mg 12.5 mg PO Q6HP DE
--- NOTE | 2019-11-07 10:20 | PC.NURSE ---
Pt stuck x3 for ABG with no results and has refused any more attemps at his time.
--- NOTE | 2019-11-07 10:47 | HMH.PHAINT ---
PATIENT'S FAMILY DID NOT BRING IN XOPENEX INHALER. WILL SWITCH TO XOPENEX NEBS Q4HP PER EDWARD.
[2019-11-07 11:17] LABS: POC Glucose,Bedside 270 (70-110)
--- NOTE | 2019-11-07 15:03 | HMH.PHAINT ---
MEDICATION RECONCILIATION COMPLETED USING EXTERNAL FILL HISTORY, PHARMACY, AND PATIENT.
[2019-11-07 16:51] LABS: POC Glucose,Bedside 193 (70-110)
[2019-11-07 18:19] LABS: ABG Base Excess 7.9 mmol/L (-2.4-2.3); ABG HCO3 31.2 mmhg (22.0-26.0); ABG Oxygen Saturation 92 % (90-100); ABG PCO2 41.5 mmhg (35.0-45.0); ABG PH 7.49 mmol/L (7.35-7.45); ABG PO2 62.5 mmhg (80-100); ABG TCO2 32.5 mmhg (23-27)
--- NOTE | 2019-11-07 18:19 | PC.NURSE ---
PATIENT SITTING IN CHAIR WITH SAFETY MEASURES IN PLACE. EATING DINNER. SON AT BEDSIDE. DR LEON AT BEDSIDE-PATIENT AGREEABLE TO LET RT GET ABG, RT COLLECTED AND SENT TO LAB. MD WANTS TO ADJUST CPAP SETTINGS BASED ON ABG RESULTS. ENCOURAGED PATIENT TO WEAR CPAP TONIGHT. DISCUSSED WITH MD PATIENT HAD NAUSEA EARLIER ATTEMPTED TO GIVE PATIENT ZOFRAN PER MAR, PATIENT SAID SHE DIDNT WANT THAT SHE WANTED PHENEGRAN . MD AWARE, NO N/O REGARDING THIS.
[2019-11-07 18:20] LABS: Allen's Test Acceptable; Oxygen room air %; Source Right Radial
--- NOTE | 2019-11-07 19:13 | PC.NURSE ---
notified of prelim blood cultures. no new orders at this time.
--- NOTE | 2019-11-07 20:14 | PC.NURSE ---
Pt's room air sat at rest = 92%.
[2019-11-07 22:31] LABS: POC Glucose,Bedside 250 (70-110)
[2019-11-08] VITALS: BP 125/74; PULSE 85; PULSE 91; RESP 24; TEMP 36.8; O2SAT 93
[2019-11-08 04:00] VITALS: BP 119/69; PULSE 100; PULSE 90; RESP 22; TEMP 36.8; O2SAT 92
[2019-11-08 05:00] VITALS: BMI 56.3
--- NOTE | 2019-11-08 05:10 | PC.NURSE ---
A&OX4. PT HAS TOLERATED ROOM AIR AT THE BEGINNING OF SHIFT AND CPAP WHILE SLEEPING WELL TONIGHT. RESPIRATIONS REGULAR AND UNLABORED. LUNG SOUNDS BILATERALLY CLEAR. OCCASIONAL PRODUCTIVE COUGH NOTED PER PT. ENCOURAGED PT TO LET US KNOW WHEN SHE PRODUCES A SAMPLE SO WE COULD SEND IT TO THE LAB. PT HAS REMAINED IN CONTACT PRECAUTIONS THROUGHOUT SHIFT. ACTIVE BOWEL SOUNDS HEARD IN ALL 4 QUADRANTS. SOFT AND NONTENDER ABDOMEN. PT AMBULATES INDEPENDENTLY TO THE RESTROOM. STEADY GAIT NOTED. NO REPORTS OF PAIN, NAUSEA, OR SOB THUS FAR. EDEMA NOTED TO BLE. HAND ANTIQUE CLOCKS REPAIRER EQUAL. PT HAS REMAINED ON TELE THROUGHOUT SHIFT. PT IS CURRENTLY RESTING IN BED WITH CALL LIGHT WITHIN REACH. BED IN LOWEST POSITION. VSS. NO CONCERNS AT THIS TIME. WILL CONTINUE TO MONITOR.
[2019-11-08 06:51] LABS: POC Glucose,Bedside 212 (70-110)
[2019-11-08 07:25] LABS: Chloride 90 mmol/L (98-107); Potassium 3.5 mmoL/L (3.5-5.1); Sodium 134 mmol/L (136-145)
[2019-11-08 07:27] LABS: Basophils # 0.1 K/mm3 (0-0.2); Basophils % 1.1 % (0.1-2.0); Blood Urea Nitrogen 22 mg/dl (7-17); Creatinine Clearance Estimated 52 mL/min (50-200); Eosinophils # 0.2 K/mm3 (0.0-0.4); Eosinophils % 2.1 % (0.1-12.0); Estimated Glomerular Filt Rate 65 ml/min (>60); GFR (African American) 78 ML/MIN (>60); Hematocrit 38.9 % (37.0-47.0); Hemoglobin 12.8 g/dL (12.2-16.2); Lymphocytes # 2.6 K/mm3 (0.7-4.5); Lymphocytes % 31.8 % (10-50); Mean Corpuscular Hemoglobin 26.7 pg (27.0-31.2); Mean Corpuscular Volume 80.9 fl (81-99); Mean Platelet Volume 7.6 fl (7.4-10.4); Monocytes # 0.5 K/mm3 (0.1-1.0); Monocytes % 6.5 % (1.7-9.3); Neutrophils # 4.8 K/mm3 (1.8-7.8); Neutrophils % 58.6 % (37.0-80.0); Platelet Count 390 K/mm3 (142-424); Red Blood Count 4.81 M/mm3 (4.20-5.40); White Blood Count 8.2 K/mm3 (4.8-10.8)
[2019-11-08 07:28] LABS: Alanine Aminotransferase 48 U/L (12-78); Albumin Level 3.2 g/dl (3.5-5.0); Alkaline Phosphatase 138 U/L (38-126); Anion Gap 9.5 mEq/L (5-15); Aspartate Amino Transferase 36 U/L (14-36); Bilirubin,Total 0.6 mg/dl (0.2-1.3); Calcium 8.5 mg/dl (8.4-10.2); Carbon Dioxide 38 mmol/L (22.0-30.0); Globulin 3.2 g/dL (1.3-3.2); Glucose 215 mg/dl (74-100); Magnesium 1.8 mg/dl (1.6-2.3); Total Protein,Serum 6.4 g/dl (6.3-8.2)
--- NOTE | 2019-11-08 07:57 | HMH.DCSUM ---
General - General Admission date:: 11/06/19 Discharge date: 11/08/19 HPI HPI: 58-year-old female with multiple comorbidities including morbid obesity, diabetes, CHF with diastolic dysfunction, hypertension, and WILEY. She presented to the ER yesterday due to muscle aches and fatigue. She was seen in clinic on Monday where she presented due to worsening shortness of breath and swelling in her legs. She complains of worsening orthopnea and dyspnea with exertion over the past 2 to 3 weeks. In clinic she was instructed to increase her diuretic (Lasix) to 60 mg daily to increase diuresis and help with suspected volume overload. Labs were obtained showing baseline kidney function of 0.8. Upon presentation to the ER she was noted to have hypotension, acute kidney injury with increase of greater than 20% her baseline creatinine, hypokalemia, and concern for Sirs with tachycardia, tachypnea, hypotension, and DEE. No clearly identified source however did have suspected atelectasis versus opacification of left lower lung. Mild hypoxia necessitating 2 L oxygen on admission. Admitted for observation and further management. On interview this morning, she states she feels a little bit better from clinic on Monday. Dyspnea not as bad. Echocardiogram obtained, EKG obtained, CT chest obtained, formal reads pending. Denies chest pain, syncope, confusion, nausea, or vomiting. Sitting in bedside chair on interview tolerating breakfast on room air Hospital Course Hospital Course: Ms. Bosch is a 58-year-old female with multiple comorbidities admitted for worsening dyspnea, concern for CHF exacerbation, SIRS, and acute kidney injury with volume depletion. Work-up consisted of labs, echocardiogram, assessment for oxygen need, and reestablishing use of CPAP. Echo consistent with normal EF and mild diastolic dysfunction. DEE resolved with gentle fluid resuscitation after suspected overdiuresis as an outpatient. Electrolytes normalized with repletion. No focal source of infection so antibiotics were stopped during admission. Able to tolerate her CPAP overnight while admitted. No acute needs at this time. Made adjustments to blood pressure regimen per discharge med rec. As an outpatient recommend further work-up as follows: Overnight pulse oximetry Interrogate CPAP, via [facility] therapy to address Wt, pulmonary capacity, deconditioning. Diuretic adjustment and follow-up in a week for labs Pulmonary function test Patient at this time states her shortness of breath is stable. Denies any chest pain, headache, nausea, vomiting. Medically stable for discharge home. Of note, had a single bottle of the 4 obtained for blood culture return had a little over 24 hours with gram-positive cocci, suspected to be contaminant as patient otherwise appeared well Objective Vital signs: Temp Pulse Resp BP Pulse Ox 98.3 F 90 22 119/69 92 L 11/08/19 04:00 11/08/19 04:00 11/08/19 04:00 11/08/19 04:00 11/08/19 04:00 Narrative: - Constitutional no acute distress, morbidly obese - *Routine HEENT Exam Head: Present: normocephalic Eye: Present: EOMI, PERRL ENT: Present: mucous membranes moist - *Routine Neck Exam Present: supple. Absent: lymphadenopathy - *Routine Respiratory Exam Present: decreased breath sounds; Interval improvement in respiratory exam, no inspiratory crackles on exam today. No rhonchi or wheeze - *Routine Cardiovascular Exam Present: RRR - *Routine Abdominal Exam Present: soft, normoactive bowel sounds. Absent: tenderness - *Routine Extremities Exam Present: edema (1+). Absent: cyanosis, clubbing - *Routine Skin Exam Present: warm. Absent: rash - *Routine Neurological Exam Present: alert, oriented X3 Results Labs on day of discharge: Labs from last 24 hours 11/08/19 11/08/19 11/08/19 06:50 06:50 06:35 WBC 8.2 RBC 4.81 Hgb 12.8 Hct 38.9 MCV 80.9 L MCH 26
[2019-11-08 08:00] VITALS: BP 126/74; PULSE 90; PULSE 94; RESP 18; TEMP 36.5; O2SAT 93
== END 2019-11-08 10:28 | disposition home or self-care (01) ==
LOC: ER 20:11 → 2ND 22:49
PROVIDERS: Internal Medicine Adolescent Medicine; Admitting Provider Emergency Medicine; Emergency Provider Emergency Medicine; PCP Internal Medicine Adolescent Medicine; Visit Provider Internal Medicine Adolescent Medicine
DX: E87.6 Hypokalemia (principal); E66.2 Morbid (severe) obesity with alveolar hypoventilation; Z68.43 Body mass index [BMI] 50.0-59.9, adult; I11.0 Hypertensive heart disease with heart failure; I50.32 Chronic diastolic (congestive) heart failure; N17.9 Acute kidney failure, unspecified; R65.10 Systemic inflammatory response syndrome (SIRS) of non-infectious origin without acute organ dysfunction; J44.9 Chronic obstructive pulmonary disease, unspecified; Z87.891 Personal history of nicotine dependence; Z88.0 Allergy status to penicillin; Z88.5 Allergy status to narcotic agent; I27.20 Pulmonary hypertension, unspecified; Z79.4 Long term (current) use of insulin; Z79.51 Long term (current) use of inhaled steroids; Z79.899 Other long term (current) drug therapy
CPT/HCPCS: 36415; 71045; 71275; 80048; 80053; 82803; 82962; 83605; 83735; 83880; 84484; 85025; 86328; 87040; 87077; 87081; 87186; 87581; 87633; 87798; 93005; 93306; 94761; 96374; 99285; G0378; J3370; Q9967

== ENCOUNTER → 2019-11-25 10:42 | Outpatient (POV) | payer MEDICARE, MEDICAID, SELFPAY | PROVIDERS: Visit Provider Nurse Practitioner Family | DX: Z00.00 Encounter for general adult medical examination without abnormal findings (principal) ==

== ENCOUNTER → 2019-12-05 12:11 | Outpatient (CLI) | payer MEDICARE, MEDICAID, SELFPAY ==
[2019-12-05 13:00] LABS: Basophils # 0.1 K/mm3 (0-0.2); Basophils % 0.9 % (0.1-2.0); Eosinophils # 0.2 K/mm3 (0.0-0.4); Eosinophils % 2.4 % (0.1-12.0); Hematocrit 41.1 % (37.0-47.0); Hemoglobin 13.3 g/dL (12.2-16.2); Lymphocytes # 2.9 K/mm3 (0.7-4.5); Mean Corpuscular HGB Conc 32.4 g/dL (31.8-35.4); Mean Corpuscular Hemoglobin 26.8 pg (27.0-31.2); Mean Corpuscular Volume 82.8 fl (81-99); Mean Platelet Volume 7.2 fl (7.4-10.4); Monocytes # 0.5 K/mm3 (0.1-1.0); Monocytes % 5.4 % (1.7-9.3); Neutrophils % 57.3 % (37.0-80.0); Platelet Count 393 K/mm3 (142-424); Red Blood Count 4.96 M/mm3 (4.20-5.40); Red Cell Distribution Width 16.8 % (11.5-17.5); White Blood Count 8.7 K/mm3 (4.8-10.8)
[2019-12-05 13:19] LABS: Hemoglobin A1C 7.8 % (4.0-6.0)
[2019-12-05 13:27] LABS: Alanine Aminotransferase 41 U/L (12-78); Albumin Level 3.1 g/dl (3.5-5.0); Albumin/Globulin Ratio 0.9 (1.1-1.8); Alkaline Phosphatase 170 U/L (38-126); Anion Gap 10.5 mEq/L (5-15); Aspartate Amino Transferase 49 U/L (14-36); Bilirubin,Total 0.8 mg/dl (0.2-1.3); Blood Urea Nitrogen 18 mg/dl (7-17); Calcium 8.8 mg/dl (8.4-10.2); Carbon Dioxide 36 mmol/L (22.0-30.0); Chloride 87 mmol/L (98-107); Estimated Glomerular Filt Rate 86 ml/min (>60); GFR (African American) 104 ML/MIN (>60); Globulin 3.4 g/dL (1.3-3.2); Glucose 150 mg/dl (74-100); Magnesium 1.9 mg/dl (1.6-2.3); Potassium 3.5 mmoL/L (3.5-5.1); Sodium 130 mmol/L (136-145); Total Protein,Serum 6.5 g/dl (6.3-8.2)
== END ==
PROVIDERS: Visit Provider Internal Medicine Adolescent Medicine
DX: I10 Essential (primary) hypertension (principal); E11.9 Type 2 diabetes mellitus without complications; Z79.4 Long term (current) use of insulin
CPT/HCPCS: 36415; 80053; 83036; 83735; 85025

== ENCOUNTER → 2020-01-28 14:08 | Outpatient (CLI) | payer MEDICARE, MEDICAID, SELFPAY ==
[2020-01-28 16:35] LABS: Coronavirus 19 IgG Antibody Negative (Negative); Coronavirus 19 IgM Antibody Negative (Negative)
== END ==
PROVIDERS: Visit Provider Specialist
DX: Z01.818 Encounter for other preprocedural examination (principal); G47.33 Obstructive sleep apnea (adult) (pediatric)
CPT/HCPCS: 36415; 86328

== ENCOUNTER → 2020-02-20 15:06 | Outpatient (CLI) | payer MEDICARE, MEDICAID, SELFPAY ==
--- NOTE | 2020-02-20 15:11 | XR_ITS ---
PROCEDURE: XR CHEST 2V CLINICAL HISTORY: COUGH COMPARISON: CR CXR CHEST(2 VIEWS-NOT PORTABLE) from 01/30/2015 CR CXR CHEST(2 VIEWS-NOT PORTABLE) from 05/02/2015 CR CXR2V XR chest 2V from 08/21/2018 CR XR CHEST PORTABLE from 11/06/2019 FINDINGS: The cardiomediastinal silhouette and pulmonary vascularity are within normal limits. Granulomas present in the left lower lobe and right upper lobe. No lobar consolidation or collapse. No acute bony abnormalities. IMPRESSION: No acute findings. Dictated by: Gab Owens MD 02/20/2020 15:26 Gab Owens MD in [facility] 02/20/2020 15:26
== END ==
PROVIDERS: PCP Nurse Practitioner Family; Visit Provider Nurse Practitioner Family
DX: R05 Cough (principal)
CPT/HCPCS: 71046

== ENCOUNTER → 2020-05-25 09:51 | Outpatient (POV) | payer MEDICARE, MEDICAID, SELFPAY | PROVIDERS: Visit Provider Nurse Practitioner Family | DX: Z00.00 Encounter for general adult medical examination without abnormal findings (principal) ==

== ENCOUNTER 2020-06-08 19:14 | Emergency (ER) | payer MEDICARE, MEDICAID, SELFPAY ==
[2020-06-08 19:32] VITALS: BP 111/74; PULSE 120; RESP 20; TEMP 36.8; O2SAT 96; BMI 48.4
[2020-06-08 19:53] LABS: Basophils # 0.1 K/mm3 (0-0.2); Basophils % 1.1 % (0.1-2.0); Eosinophils # 0.1 K/mm3 (0.0-0.4); Eosinophils % 1.2 % (0.1-12.0); Hematocrit 38.4 % (37.0-47.0); Hemoglobin 12.5 g/dL (12.2-16.2); Lymphocytes # 5.5 K/mm3 (0.7-4.5); Lymphocytes % 51.9 % (10-50); Mean Corpuscular HGB Conc 32.6 g/dL (31.8-35.4); Mean Corpuscular Hemoglobin 24.9 pg (27.0-31.2); Mean Corpuscular Volume 76.3 fl (81-99); Mean Platelet Volume 7.5 fl (7.4-10.4); Monocytes # 0.5 K/mm3 (0.1-1.0); Monocytes % 5.2 % (1.7-9.3); Neutrophils # 4.3 K/mm3 (1.8-7.8); Neutrophils % 40.6 % (37.0-80.0); Platelet Count 383 K/mm3 (142-424); Red Blood Count 5.03 M/mm3 (4.20-5.40); Red Cell Distribution Width 17.4 % (11.5-17.5); White Blood Count 10.5 K/mm3 (4.8-10.8)
[2020-06-08 19:54] LABS: Chloride 93 mmol/L (98-107); MANUAL DIFFERENTIAL MANUAL DIFFERENTIAL (MANUAL DIFF); Potassium 3.2 mmoL/L (3.5-5.1); Sodium 133 mmol/L (136-145)
[2020-06-08 19:56] LABS: Amylase 53 U/L (30-110)
[2020-06-08 19:57] LABS: Alanine Aminotransferase 35 U/L (12-78); Albumin Level 3.1 g/dl (3.5-5.0); Albumin/Globulin Ratio 0.7 (1.1-1.8); Alkaline Phosphatase 115 U/L (38-126); Anion Gap 11.2 mEq/L (5-15); Aspartate Amino Transferase 47 U/L (14-36); Bilirubin,Total 0.5 mg/dl (0.2-1.3); Blood Urea Nitrogen 30 mg/dl (7-17); Calcium 9.3 mg/dl (8.4-10.2); Carbon Dioxide 32 mmol/L (22.0-30.0); Creatinine Clearance Estimated 48 mL/min (50-200); Estimated Glomerular Filt Rate 57 ml/min (>60); GFR (African American) 69 ML/MIN (>60); Globulin 4.3 g/dL (1.3-3.2); Glucose 163 mg/dl (74-100); Lipase 67 U/L (23-300); Total Protein,Serum 7.4 g/dl (6.3-8.2)
[2020-06-08 20:03] LABS: C-Reactive Protein 3.8 mg/L (0-4)
[2020-06-08 20:16] LABS: Procalcitonin 0.116 ng/mL (0.0-2.0)
--- NOTE | 2020-06-08 20:18 | HMH.EDNVD ---
ED Disposition Clinical Impression: Abdominal pain Qualifiers: Abdominal location: left upper quadrant Qualified Code(s): R10.12 - Left upper quadrant pain Disposition: Home, Self-Care Condition on Discharge: Good Instructions: DI for Acute Abdominal Pain Additional Instructions: see pcp for follow up Referrals: Yarelis Smith APRN [Primary Care Provider] - - Critical Care Critical Care Time: No Attestation: On 06/08/20, the high probability of a clinically significant, sudden or life threatening deterioration of the following system(s) required my full and direct attention, intervention and personal management. The time I documented below is in addition to time spent performing reported procedures but includes the following listed in this critical care notation. Medical Decision Making - Medical Records Medical records reviewed: Yes: I reviewed the patient's medical records. - [place] Inquiry Pt receiving controlled substance: No Vital Signs: 06/08/20 19:32 Temperature 98.2 F Temperature Source Oral Pulse Rate [Right] 120 H Respiratory Rate 20 Blood Pressure [Right Arm] 111/74 Blood Pressure Mean [Right Arm] 86 Blood Pressure Source [Right Arm] Automatic Cuff Blood Pressure Position [Right Arm] Supine 02 Sat by Pulse Oximetry 96 Oxygen Delivery Method Room Air - Lab Data Lab results reviewed: Yes: I reviewed the patient's lab results. Lab Results 06/08/20 19:40: WBC 10.5, RBC 5.03, Hgb 12.5, Hct 38.4, MCV 76.3 L, MCH 24.9 L, MCHC 32.6, RDW 17.4, Plt Count 383, MPV 7.5, Neut % (Auto) 40.6, Lymph % (Auto) 51.9 H, [place] % (Auto) 5.2, Eos % (Auto) 1.2, Baso % (Auto) 1.1, Neut # (Auto) 4.3, Lymph # (Auto) 5.5 H, [place] # (Auto) 0.5, Eos # (Auto) 0.1, Baso # (Auto) 0.1, Total Counted 100, Neutrophils % (Manual) 45, Lymphocytes % (Manual) 52 H, Monocytes % (Manual) 2, Eosinophils % (Manual) 1, Platelet Estimate Normal, RBC Morphology Not Reportable, Stomatocytes 1+, ESR 19 06/08/20 19:40: Sodium 133 L, Potassium 3.2 L, Chloride 93 L, Carbon Dioxide 32 H, Anion Gap 11.2, BUN 30 H, Creatinine 1.00, Estimated Creat Clear 48, Estimated GFR 57 L, Est GFR ( Amer) 69, Glucose 163 H, Calcium 9.3, Total Bilirubin 0.5, AST 47 H, ALT 35, Alkaline Phosphatase 115, C-Reactive Protein 3.8, Total Protein 7.4, Albumin 3.1 L, Globulin 4.3 H, Albumin/Globulin Ratio 0.7 L, Amylase 53, Lipase 67, Procalcitonin 0.116 06/08/20 20:30: Urine Color Yellow, Urine Appearance Clear, Urine pH 5.5, Ur Specific [place] 1.020, Urine Protein Negative, Urine Glucose (UA) Negative, Urine Ketones Negative, Urine Blood Negative, Urine Nitrate Negative, Urine Bilirubin Negative, Urine Urobilinogen 0.2, Ur Leukocyte Esterase Negative, Urine WBC 3-5, Ur Squamous Epith Cells 10-20, Urine Bacteria 1+ Result diagrams: 06/08/20 19:40 06/08/20 19:40 Orders (Tests/Meds): ED MEDICATIONS Generic Name Dose Route Start Last Admin Trade Name Freq PRN Reason Stop Dose Admin Sodium Chloride 1,000 mls @ 999 mls/hr 06/08/20 19:45 06/08/20 19:47 Sod Chlor 0.9% 1000ml Bag IV 06/08/20 20:45 999 mls/hr .Q1H1M KENDY Administration Discontinued Medications Generic Name Dose Route Start Last Admin Trade Name Freq PRN Reason Stop Dose Admin Iopamidol 75 ml 06/08/20 21:12 06/08/20 21:14 Iopamidol-370 (76%);100ml Bottle IV 06/08/20 21:13 75 ml ONCE ONE Administration Ketorolac Tromethamine 30 mg 06/08/20 19:45 06/08/20 19:47 Ketorolac 30mg/Ml Vial IV 06/08/20 19:46 30 mg ONCE ONE Administration Ondansetron HCl 4 mg 06/08/20 19:45 06/08/20 19:47 Ondansetron 4mg/2ml Vial IV 06/08/20 19:46 4 mg ONCE ONE Administration Sodium Chloride 10 ml 06/08/20 21:12 06/08/20 21:14 Sodium Chloride 0.9% 10ml Syr (Rad Only) IV 06/08/20 21:13 10 ml ONCE ONE Administration ORDERS Category Date Time Status CT abdomen pelvis w con Stat Cat Scan 06/08/20 20:37 Taken - CT Data CT Scan: Abdomen, Pelvis Time Re
[2020-06-08 20:35] LABS: Microscopic, Urine URINE MICROSCOPIC (MICROSCOPIC)
--- NOTE | 2020-06-08 20:37 | CT_ITS ---
PROCEDURE: CT ABDOMEN PELVIS W CON CLINICAL INDICATION: pain Left upper quadrant pain, left flank pain COMPARISON: The 08/06/2019 TECHNIQUE: IV Contrast: 75ML Isovue 370 Oral Contrast None Axial images obtained with sagittal and coronal reformats. All CT scans at the facility use one or more dose reduction, viz: automated exposure control, ma/kV adjustment per patient size (including targeted exams where dose is matched to indication, i.e. head), or iterative reconstruction technique. FINDINGS: LOWER THORAX: No acute finding ABDOMEN & PELVIS: Prior cholecystectomy. There is a small focus of decreased attenuation within the left hepatic lobe segment 4 a measuring 13 mm possibly due to an area of focal fatty infiltration. A smaller area of decreased density is present just medial to this at 4 mm also may be due to focal fatty infiltration. MRI may confirm if clinically warranted. The spleen and adrenal glands have an unremarkable appearance. No obvious pancreatic mass. There is partial fatty replacement of the pancreas. No renal or ureteral calculi. There is a 2 cm left renal cyst. No intestinal obstruction or free air. There has been a prior hysterectomy. No evidence of appendicitis or diverticulitis. Bowel gas pattern is nonspecific with a few air-fluid levels within nondistended small bowel. There is mild subcutaneous edema/anasarca. There is mild haziness of the pelvic fat which could be due to the mild anasarca. Mild lumbar curvature convex right. No acute bony findings. IMPRESSION: 1. No acute abdominal or pelvic findings. 2. Incidental nonacute findings as detailed above. Dictated by: Gab Owens MD 06/09/2020 08:56 Gab Owens MD in [facility] 06/09/2020 08:56
[2020-06-08 20:38] LABS: Appearance,Urine CLEAR (Clear); Bilirubin,Urine Negative (Negative); Blood, Urine Negative (Negative); Color,Urine YELLOW (Yellow); Glucose,Urine (UA) Negative (Negative); Ketones,Urine Negative (Negative); Leukocyte Esterase,Urine Negative (Negative); Nitrate,Urine Negative (Negative); PH,Urine 5.5 (5.0-8.5); Protein,Urine Negative (Negative); Urobilinogen,Urine 0.2 EU/dl (0.2)
[2020-06-08 20:51] LABS: Bacteria,Urine 1+ /lpf
[2020-06-08 21:08] LABS: Erythrocyte Sedimentation Rate 19 mm/hr (0-30)
[2020-06-08 21:13] LABS: Eosinophils % 1 % (0-3); Lymphocytes % 52 % (10-50); Monocytes % 2 % (2-9); Neutrophils % 45 % (42-76); Platelet Estimate Normal; Stomatocytes 1+; Total Cells Counted 100
[2020-06-08 22:16] VITALS: BP 122/76; PULSE 98; RESP 18; TEMP 36.8; O2SAT 96
== END 2020-06-08 22:18 | disposition home or self-care (01) ==
PROVIDERS: Emergency Medicine; Emergency Provider Emergency Medicine; PCP Nurse Practitioner Family
DX: R10.12 Left upper quadrant pain (principal); I10 Essential (primary) hypertension; E78.5 Hyperlipidemia, unspecified; E11.9 Type 2 diabetes mellitus without complications; K21.9 Gastro-esophageal reflux disease without esophagitis; Z88.0 Allergy status to penicillin; Z88.5 Allergy status to narcotic agent; Z87.891 Personal history of nicotine dependence; Z79.899 Other long term (current) drug therapy; Z79.4 Long term (current) use of insulin
CPT/HCPCS: 74177; 80053; 81001; 82150; 83690; 84145; 85007; 85025; 85651; 86140; 96365; 96375; 99283; J2405; Q9967

== ENCOUNTER → 2020-06-26 10:43 | Outpatient (CLI) | payer MEDICARE, MEDICAID, SELFPAY ==
[2020-06-26 11:24] LABS: Hemoglobin A1C 8.9 % (4.0-6.0)
[2020-06-26 11:32] LABS: Chloride 94 mmol/L (98-107)
[2020-06-26 11:33] LABS: Potassium 3.1 mmoL/L (3.5-5.1); Sodium 133 mmol/L (136-145)
[2020-06-26 11:35] LABS: Alanine Aminotransferase 28 U/L (12-78); Albumin Level 3.4 g/dl (3.5-5.0); Albumin/Globulin Ratio 0.8 (1.1-1.8); Alkaline Phosphatase 121 U/L (38-126); Anion Gap 9.1 mEq/L (5-15); Aspartate Amino Transferase 44 U/L (14-36); Bilirubin,Total 0.6 mg/dl (0.2-1.3); Blood Urea Nitrogen 28 mg/dl (7-17); Calcium 9.5 mg/dl (8.4-10.2); Carbon Dioxide 33 mmol/L (22.0-30.0); Estimated Glomerular Filt Rate 57 ml/min (>60); GFR (African American) 69 ML/MIN (>60); Globulin 4.1 g/dL (1.3-3.2); Glucose 147 mg/dl (74-100); Total Protein,Serum 7.5 g/dl (6.3-8.2)
== END ==
PROVIDERS: Visit Provider Internal Medicine Adolescent Medicine
DX: E11.69 Type 2 diabetes mellitus with other specified complication (principal); Z79.4 Long term (current) use of insulin
CPT/HCPCS: 36415; 80053; 83036

== ENCOUNTER → 2020-07-29 13:43 | Outpatient (CLI) | payer MEDICARE, MEDICAID, SELFPAY ==
--- NOTE | 2020-07-29 13:44 | CT_ITS ---
PROCEDURE: CT LUNG SCREENING CLINICAL INDICATION: LDCT Former smoker Quit smoking 4 years ago. 43 pack year smoking history. Copd, chf COMPARISON: CT CT ANGIO CHEST from 11/06/2019 TECHNIQUE: The exam was performed on a GE Light Speed [address] scanner using 2.90 mGy CTDI. A low dose helical CT CHEST was performed on a multi-detector scanner. All CT scans at the facility use one or more dose reduction, viz: automated exposure control, ma/kV adjustment per patient size (including targeted exams where dose is matched to indication, i.e. head), or iterative reconstruction technique. The LDCT was performed in a facility that meets the criteria for the screening program. Data regarding this exam was submitted to ACR which is an approved registry. The order for this exam indicates that it came as a result of a lung cancer screening counseling shard decision-making visit that included all the elements required of such a visit including smoking cessation. The radiologist interpreting this exam meets the CMS criteria for the LDCT lung cancer screening program. The exam is reported using the Lung-RADS classification scale and reported to the ACR registry. NOTE: This study was performed for the specific purposes of lung cancer screening and is not an alternative to diagnostic chest CT. RADIATION DOSE: CTDI vol(CT dose Index-volume) = 2.90mG DLP (Dose Length Product) = 94.55 mGcm FINDINGS: Old granulomatous disease. No suspicious pulmonary nodules evident. No mediastinal or hilar mass. Coronary artery calcifications are noted. OTHER FINDINGS: There is mild diffuse subcutaneous edema and edematous changes in the upper abdomen IMPRESSION: Lung-RADS Category 1 Negative Follow-up: Continue annual screening with LDCT in 12 months There is mild generalized edema and there is some mild edematous changes in the upper abdomen along the superior aspect of the pancreas incompletely imaged Dictated by: Gab Owens MD 08/10/2020 10:29 Gab Owens MD in [facility] 08/10/2020 10:29
== END ==
PROVIDERS: PCP Nurse Practitioner Family; Visit Provider Internal Medicine Pulmonary Disease
DX: Z87.891 Personal history of nicotine dependence (principal); Z12.2 Encounter for screening for malignant neoplasm of respiratory organs
CPT/HCPCS: 71271; 94618

== ENCOUNTER → 2020-08-18 09:02 | Outpatient (CLI) | payer MEDICARE, MEDICAID, SELFPAY ==
[2020-08-18 09:28] LABS: Basophils # 0.1 K/mm3 (0-0.2); Basophils % 1.2 % (0.1-2.0); Eosinophils # 0.1 K/mm3 (0.0-0.4); Eosinophils % 1.3 % (0.1-12.0); Hematocrit 37.8 % (37.0-47.0); Hemoglobin 12.5 g/dL (12.2-16.2); Lymphocytes # 0.6 K/mm3 (0.7-4.5); Mean Corpuscular Hemoglobin 25.8 pg (27.0-31.2); Mean Corpuscular Volume 78.3 fl (81-99); Mean Platelet Volume 6.9 fl (7.4-10.4); Monocytes # 0.2 K/mm3 (0.1-1.0); Neutrophils # 4.7 K/mm3 (1.8-7.8); Neutrophils % 82.5 % (37.0-80.0); Platelet Count 439 K/mm3 (142-424); Red Blood Count 4.82 M/mm3 (4.20-5.40); Red Cell Distribution Width 17.4 % (11.5-17.5); White Blood Count 5.7 K/mm3 (4.8-10.8)
[2020-08-18 09:32] LABS: Ammonia < 9 umol/L (9-30)
[2020-08-18 09:39] LABS: Hemoglobin A1C 6.8 % (4.0-6.0)
[2020-08-18 10:45] LABS: Alanine Aminotransferase 28 U/L (12-78); Albumin Level 2.2 g/dl (3.5-5.0); Albumin/Globulin Ratio 0.6 (1.1-1.8); Alkaline Phosphatase 120 U/L (38-126); Anion Gap 9.9 mEq/L (5-15); Aspartate Amino Transferase 67 U/L (14-36); Bilirubin,Total 0.4 mg/dl (0.2-1.3); Blood Urea Nitrogen 42 mg/dl (7-17); Calcium 9.3 mg/dl (8.4-10.2); Carbon Dioxide 29 mmol/L (22.0-30.0); Chloride 93 mmol/L (98-107); Estimated Glomerular Filt Rate 64 ml/min (>60); GFR (African American) 78 ML/MIN (>60); Globulin 3.4 g/dL (1.3-3.2); Glucose 95 mg/dl (74-100); Potassium 3.9 mmoL/L (3.5-5.1); Sodium 128 mmol/L (136-145); Total Protein,Serum 5.6 g/dl (6.3-8.2)
[2020-08-18 10:52] LABS: NT Pro Brain Natriuretic Pep. 154 pg/mL (0-125)
[2020-08-18 11:01] LABS: Free Thyroxine Index 3.9 ug/dL (5.93-13.13); T4 (Thyroxine) 6.8 ug/dl (5.53-11.0); Triiodothryronine (T3) Uptake 57 % (23.5-40.5)
[2020-08-19 09:23] LABS: Hep A Ab, IgM Negative (Negative); Hepatitis B Core Antibody IgM Negative (Negative); Hepatitis B Surface Antigen Negative (Negative)
[2020-08-20 12:49] LABS: Hepatitis C Antibody <0.1 s/co ratio (0.0-0.9)
== END ==
PROVIDERS: Visit Provider Internal Medicine Adolescent Medicine
DX: R41.0 Disorientation, unspecified (principal); I10 Essential (primary) hypertension; E11.69 Type 2 diabetes mellitus with other specified complication; Z79.4 Long term (current) use of insulin; R94.5 Abnormal results of liver function studies; R79.0 Abnormal level of blood mineral; R06.09 Other forms of dyspnea; Z87.891 Personal history of nicotine dependence
CPT/HCPCS: 36415; 80053; 80074; 82140; 83036; 83880; 84436; 84443; 84479; 85025

== ENCOUNTER → 2020-08-26 08:54 | Outpatient (CLI) | payer MEDICARE, MEDICAID, SELFPAY ==
--- NOTE | 2020-08-26 09:00 | US_ITS ---
PROCEDURE: US ABDOMEN LIMITED CLINICAL INDICATION: ENLARGED LIVER COMPARISON: No exams were available for comparison FINDINGS: PANCREAS: The visualized pancreas is unremarkable. The tail is partially obscured. LIVER: Diffuse fatty infiltration of the liver is noted. The liver measures 20.9 centimeters in craniocaudal dimension. No focal liver lesions are noted. No intra or extrahepatic biliary dilation. The portal vein is patent and demonstrates appropriate directional flow. RIGHT KIDNEY: Unremarkable. Normal size and echogenicity. No hydronephrosis GALLBLADDER: The gallbladder is surgically absent IMPRESSION: Hepatic steatosis with hepatomegaly. Dictated by: Pippa Colón 08/26/2020 12:02 Pippa Colón in [facility] 08/26/2020 12:02
== END ==
PROVIDERS: PCP Nurse Practitioner Family; Visit Provider Internal Medicine Adolescent Medicine
DX: R16.0 Hepatomegaly, not elsewhere classified (principal)
CPT/HCPCS: 76705

== ENCOUNTER 2020-09-06 10:07 | Inpatient (IN) | payer MEDICARE, MEDICAID, SELFPAY ==
[2020-09-06] VITALS (13 sets, daily range): BP systolic 89–102; BP diastolic 49–67; PULSE 89–112; RESP 16–20; TEMP 36.5–36.7; O2SAT 98–99; BMI 48.4; BMI 56.7
--- NOTE | 2020-09-06 | ECG_ITS ---
APPROVED REPORT Exam: Resting ECG HR:108 bpm ECG Measurements Heart Rate 108 AXES VT 148 P 40 QRSd 78 QRS -18 QT 328 T 52 QTc 439 Conclusion Sinus tachycardia Low voltage QRS Borderline ECG Electronically signed by : Clarence Ram, 09/12/2020 07:42:02
--- NOTE | 2020-09-06 10:22 | XR_ITS ---
PROCEDURE INFORMATION: Exam: XR Chest Exam date and time: 09/06/2020 10:22 AM Age: 59 years old Clinical indication: Other: Chf exacerbation TECHNIQUE: Imaging protocol: XR of the chest. Views: 1 view. COMPARISON: DX XR CHEST 2V 02/20/2020 3:16 PM FINDINGS: Lungs: Calcified granuloma right mid lung Lungs are well aerated without a focal area of consolidation. Pleural spaces: Unremarkable. No pleural effusion. No pneumothorax. Heart/Mediastinum: Unremarkable. No cardiomegaly. Bones/joints: Unremarkable. IMPRESSION: Lungs are well aerated without a focal area of consolidation.
[2020-09-06 10:32] LABS: POC Glucose,Bedside 123 (70-110)
[2020-09-06 10:39] LABS: Basophils # 0.1 K/mm3 (0-0.2); Eosinophils % 0.5 % (0.1-12.0)
--- NOTE | 2020-09-06 10:39 | HMH.EDGENADL ---
ED Disposition Clinical Impression: Hyponatremia, Traveler's diarrhea, Acute hyponatremia, Anasarca Disposition: Admitted As Inpatient Condition on Discharge: Fair - Critical Care Critical Care Time: No Attestation: On 09/06/20, the high probability of a clinically significant, sudden or life threatening deterioration of the following system(s) required my full and direct attention, intervention and personal management. The time I documented below is in addition to time spent performing reported procedures but includes the following listed in this critical care notation. Medical Decision Making - Medical Records Medical records reviewed: Yes: I reviewed the patient's medical records. - [place] Inquiry Pt receiving controlled substance: No Vital Signs: 09/06/20 10:08 09/06/20 11:00 09/06/20 11:01 Temperature 97.9 F Temperature Source Oral Pulse Rate 89 108 H Pulse Rate [Apical] 112 H Respiratory Rate 20 16 20 Blood Pressure 96/57 L 96/57 L Blood Pressure [Right Arm] 93/60 L Blood Pressure Mean 71 Blood Pressure Mean [Right Arm] 71 Blood Pressure Source [Right Arm] Automatic Cuff Blood Pressure Position [Right Arm] Sitting 02 Sat by Pulse Oximetry 98 98 98 Oxygen Delivery Method Room Air 09/06/20 11:30 Temperature Temperature Source Pulse Rate 103 H Pulse Rate [Apical] Respiratory Rate 16 Blood Pressure 89/59 L Blood Pressure [Right Arm] Blood Pressure Mean 68 Blood Pressure Mean [Right Arm] Blood Pressure Source [Right Arm] Blood Pressure Position [Right Arm] 02 Sat by Pulse Oximetry 98 Oxygen Delivery Method - Lab Data Lab Results 09/06/20 10:15: WBC 8.6, RBC 4.89, Hgb 13.0, Hct 38.0, MCV 77.8 L, MCH 26.6 L, MCHC 34.2, RDW 17.2, Plt Count 585 H, MPV 7.0 L, Neut % (Auto) 86.8 H, Lymph % (Auto) 4.7 L, [place] % (Auto) 7.0, Eos % (Auto) 0.5, Baso % (Auto) 1.0, Neut # (Auto) 7.5, Lymph # (Auto) 0.4 L, [place] # (Auto) 0.6, Eos # (Auto) 0.0, Baso # (Auto) 0.1, Total Counted 100, Neutrophils % (Manual) 93 H, Lymphocytes % (Manual) 5 L, Monocytes % (Manual) 2, Platelet Estimate Moderate increase, Anisocytosis 1+, Microcytosis 1+ 09/06/20 10:15: Sodium 119 L, Potassium 4.7, Chloride 89 L, Carbon Dioxide 22, Anion Gap 12.7, BUN 40 H, Creatinine 0.90, Estimated Creat Clear 54, Estimated GFR 64, Est GFR ( Amer) 78, Glucose 128 H, Calcium 7.4 L, Total Bilirubin 0.6, AST 73 H, ALT 35, Alkaline Phosphatase 140 H, Troponin I < 0.01, Total Protein 5.4 L, Albumin 2.0 L, Globulin 3.4 H, Albumin/Globulin Ratio 0.6 L 09/06/20 10:15: NT-Pro-B Natriuret Pep 171 H 09/06/20 10:24: POC Glucose 123 H 09/06/20 11:10: Urine Color Yellow, Urine Appearance Clear, Urine pH 5.5, Ur Specific [place] 1.025, Urine Protein Negative, Urine Glucose (UA) Negative, Urine Ketones Negative, Urine Blood Negative, Urine Nitrate Negative, Urine Bilirubin Negative, Urine Urobilinogen 0.2, Ur Leukocyte Esterase Negative, Urine RBC None, Urine WBC None, Ur Squamous Epith Cells 3-5, Calcium Oxalate Crystal 1+, Urine Bacteria 2+, Coarse Granular Casts 10-20 Result diagrams: 09/06/20 10:15 09/06/20 10:15 Orders (Tests/Meds): ED MEDICATIONS Generic Name Dose Route Start Last Admin Trade Name Freq PRN Reason Stop Dose Admin Atorvastatin Calcium 40 mg 09/06/20 21:00 Atorvastatin 40mg Tablet PO 10/06/20 20:59 HS KENDY Furosemide 40 mg 09/06/20 16:00 Furosemide 40mg/4ml Vial IV 10/06/20 15:59 BIDL KENDY Insulin Human Lispro 0 unit 09/06/20 12:06 Humalog 100 Units/Ml 3ml Vial (Ssi) SQ 10/06/20 12:05 Q6H KENDY Protocol Levothyroxine Sodium 75 mcg 09/07/20 09:00 Levothyroxine 75mcg (0.075mg) Tab PO 10/07/20 08:59 DAILY KENDY Metolazone 2.5 mg 09/07/20 09:00 Metolazone 2.5mg Tablet PO 10/07/20 08:59 DAILY KENDY Non-Formulary Medication 10 mg 09/07/20 09:00 Cetirizine Hcl PO 10/07/20 08:59 DAILY KENDY Non-Formulary Medication 0.5 tab 09/07/20 09:00 Lo
[2020-09-06 10:42] LABS: Chloride 89 mmol/L (98-107); Lymphocytes # 0.4 K/mm3 (0.7-4.5); Lymphocytes % 4.7 % (10-50); Mean Corpuscular HGB Conc 34.2 g/dL (31.8-35.4); Mean Corpuscular Hemoglobin 26.6 pg (27.0-31.2); Mean Corpuscular Volume 77.8 fl (81-99); Monocytes # 0.6 K/mm3 (0.1-1.0); Neutrophils # 7.5 K/mm3 (1.8-7.8); Neutrophils % 86.8 % (37.0-80.0); Platelet Count 585 K/mm3 (142-424); Potassium 4.7 mmoL/L (3.5-5.1); Red Blood Count 4.89 M/mm3 (4.20-5.40); Red Cell Distribution Width 17.2 % (11.5-17.5); Sodium 119 mmol/L (136-145); White Blood Count 8.6 K/mm3 (4.8-10.8)
[2020-09-06 10:43] LABS: MANUAL DIFFERENTIAL MANUAL DIFFERENTIAL (MANUAL DIFF)
[2020-09-06 10:45] LABS: Alanine Aminotransferase 35 U/L (12-78); Albumin/Globulin Ratio 0.6 (1.1-1.8); Alkaline Phosphatase 140 U/L (38-126); Anion Gap 12.7 mEq/L (5-15); Aspartate Amino Transferase 73 U/L (14-36); Bilirubin,Total 0.6 mg/dl (0.2-1.3); Blood Urea Nitrogen 40 mg/dl (7-17); Carbon Dioxide 22 mmol/L (22.0-30.0); Creatinine Clearance Estimated 54 mL/min (50-200); Estimated Glomerular Filt Rate 64 ml/min (>60); GFR (African American) 78 ML/MIN (>60); Globulin 3.4 g/dL (1.3-3.2); Total Protein,Serum 5.4 g/dl (6.3-8.2)
[2020-09-06 10:46] LABS: Calcium 7.4 mg/dl (8.4-10.2); Glucose 128 mg/dl (74-100)
[2020-09-06 10:52] LABS: Anisocytosis 1+; Lymphocytes % 5 % (10-50); Microcytosis 1+; Monocytes % 2 % (2-9); Neutrophils % 93 % (42-76); Total Cells Counted 100
[2020-09-06 10:53] LABS: Platelet Estimate Moderate Increase
[2020-09-06 10:58] LABS: Troponin I < 0.01 ng/ml (0.00-0.034)
--- NOTE | 2020-09-06 11:00 | PC.NURSE ---
notified ER of pt Sodium level
[2020-09-06 11:18] LABS: Microscopic, Urine URINE MICROSCOPIC (MICROSCOPIC)
[2020-09-06 11:19] LABS: NT Pro Brain Natriuretic Pep. 171 pg/mL (0-125)
[2020-09-06 11:21] LABS: Appearance,Urine CLEAR (Clear); Bilirubin,Urine Negative (Negative); Blood, Urine Negative (Negative); Color,Urine YELLOW (Yellow); Glucose,Urine (UA) Negative (Negative); Ketones,Urine Negative (Negative); Leukocyte Esterase,Urine Negative (Negative); Nitrate,Urine Negative (Negative); PH,Urine 5.5 (5.0-8.5); Protein,Urine Negative (Negative); Specific Gravity, Urine 1.025 (1.005-1.030); Urobilinogen,Urine 0.2 EU/dl (0.2)
[2020-09-06 11:27] LABS: Bacteria,Urine 2+ /lpf; Calcium Oxalate Crystals,Urine 1+ /lpf
--- NOTE | 2020-09-06 11:35 | PC.NURSE ---
screed operator is paging permastone installer MD for Dr. Whittaker
--- NOTE | 2020-09-06 11:38 | PC.NURSE ---
JUAN CARLOS SONG speaking with Dr. Castrejon who is court collections officer for Dr. Whittaker
--- NOTE | 2020-09-06 11:43 | PC.NURSE ---
notified ER MD of pt bp 89/59 (map 68), no new orders at this time obtained. States we will continue to monitor pt vs and reassess need to treat bp
--- NOTE | 2020-09-06 11:46 | PC.NURSE ---
notified warehouse helper of admission
--- NOTE | 2020-09-06 12:14 | P.CONPHA_ITS ---
[facility] Pharmacy VTE Monitoring - Patient Demographics Admission date: 09/06/20 Report Date: 09/06/20 Time: 12:14 Allergies/Adverse Reactions: Patient Allergies hydromorphone [HYDROMORPHONE] Allergy (Mild, Verified 08/10/20 10:09) ITCHING OF FACE/NOSE morphine [MORPHINE] Allergy (Mild, Verified 08/10/20 10:09) SHAKING penicillin G [PENICILLIN G] Allergy (Mild, Verified 08/10/20 10:09) Rash Fish Containing Products Adverse Reaction (Mild, Verified 08/10/20 10:09) Nausea Height: 1.57 m Weight: 120.202 kg Patient Problems: Current Active Problems Hyponatremia (Acute) Traveler's diarrhea (Acute) Acute hyponatremia (Acute) Anasarca (Acute) - VTE Risk Labs: VTE Related Lab Results Hgb 13.0 g/dL (12.2-16.2) 09/06/20 10:15 Hct 38.0 % (37.0-47.0) 09/06/20 10:15 Plt Count 585 K/mm3 (142-424) H 09/06/20 10:15 BUN 40 mg/dl (7-17) H 09/06/20 10:15 Creatinine 0.90 mg/dl (0.52-1.04) 09/06/20 10:15 Estimated Creat Clear 54 mL/min (50-200) 09/06/20 10:15 - Prophylaxis VTE Prophylaxis Ordered?: Yes Types of VTE Prophylaxis: TEDS Knee High Location of Applied Device: Bilateral Lower Extremeties
--- NOTE | 2020-09-06 12:21 | HMH.PHAINT ---
MEDICATION RECONCILIATION COMPLETED ON PATIENT USING EXTERNAL FILL HISTORY FROM PHARMACY. -ILYA ABREU, BERTD
--- NOTE | 2020-09-06 12:45 | PC.NURSE ---
lab states approx 25 minutes until result on covid swab
--- NOTE | 2020-09-06 13:24 | PC.NURSE ---
report called to aydin hardy on second ffloor at this time, states she will send staff down to get pt.
[2020-09-06 13:58] LABS: Troponin I < 0.01 ng/ml (0.00-0.034)
--- NOTE | 2020-09-06 17:51 | PC.NURSE ---
shift note: Pt is a new admit this shift. Is aprox 308 lbs. Cannot get OOB without assistance. Requires navid lift to get to BSC for bowel movements. Has neff cath. Strict I&Os. Is A&O. Denies pain. On RA. Tolerating a DM diet without difficulty.
[2020-09-06 20:26] LABS: POC Glucose,Bedside 98 (70-110)
--- NOTE | 2020-09-06 21:17 | PC.NURSE ---
She is A&Ox3. She reports that she had diarrhea today. She is voiding per f/c. Urine is yellow, clear. She reported pain in her hips and back and rated it a 3/10. She stated she believes it is from laying in the bed. She denies SOA. Continues on on RA. 2+ pitting edema to BLE.
[2020-09-06 21:40] LABS: POC Glucose,Bedside 128 (70-110)
--- NOTE | 2020-09-06 22:26 | PC.NURSE ---
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 CRE swab sent to lab.
[2020-09-07] VITALS (16 sets, daily range): BP systolic 64–103; BP diastolic 24–59; PULSE 100–132; RESP 17–20; TEMP 36.4–37.1; O2SAT 94–98; BMI 55.5
[2020-09-07 05:58] LABS: POC Glucose,Bedside 99 (70-110)
--- NOTE | 2020-09-07 07:49 | HMH.HP ---
*Admission Date: 09/06/20 *Chief complaint: Weakness/edema *History of present illness: 59-year-old white female with long history of diabetes, insulin requiring, morbid obesity, hyperlipidemia and chronic lymphedema. She gives a somewhat convoluted history of being in her normal state of somewhat compromised health until July 25, when she slept in one position all night and woke up with some aches and pains and felt that she was very tired and slightly more swollen. Labs were done which revealed minimally elevated BNP, normal troponins and sodium levels in the upper 120s as well as normal renal function, but her TSH was noted to be elevated at 11. She was placed on levothyroxine replacement therapy, and she states that since that time she has had increasing edema and weakness and inability to walk. This culminated in an episode of diarrhea and watery stools over the past 48 hours which prompted an ER visit. In the emergency department yesterday she was noted to have hyponatremia with a sodium of 119. Worsening anasarca, interestingly BNP was essentially still normal along with normal troponins. She was given 1 L of normal saline, stool cultures and PCR testing was done and she was placed in the hospital because of her weakness and inability to walk because of her swelling. This morning she states she feels somewhat better but still feels very weak and cannot walk on her legs because they hurt. [facility] History I have reviewed the patient's past medical history: Yes Medical History: Reports:: Asthma, Congestive Heart Failure, Depression, Diabetes Mellitus Type 2, Gastroesophageal Reflux Disease(GERD), Hyperlipidemia, Hypertension, Lung Disease, Migraine Denies:: Cancer, Diabetes Mellitus Type 1, Internal Pacemaker, MRSA, Seizures *Have you ever received a pneumonia vaccine?: No *Have you received a flu vaccine this season?: No Other Medical History: Reports: Anemia, Arthritis, Blood Transfusion Reaction, Cataracts, Hypothyroidism, Other Laterality Cases: Bilateral: Other Other Surgeries: Yes: Cardiac Catheterization, Cholecystectomy, Colonoscopy, Hysterectomy-Total. No: Pacemaker Amputation: No Fractures: No - *Social History Smoking Status: Former smoker Tobacco Type: cigarettes # Packs/Day (cigarettes): 1 #Yrs smoked (if former smoker): 42 Alcohol Intake: never Alcohol Intake Frequency:: other Substance Use Type: denies use *Occupational Status:: disabled Housing: apartment Household Members: other *Travel in the last 8 weeks: None - Psychiatric History Pschychiatric History:: Reports:: Depression Family Hx:: Cancer, Diabetes, Heart Attack, Stroke Review of Systems - Review of Systems Review of systems:: pertinent systems reviewed and negative unless documented below - Constitutional Reports fatigue, Denies anorexia - Eyes Denies blind spots - ENT Denies abnormal hearing - *Cardiovascular Reports generalized swelling, Denies chest pain, Denies excessive sweating, Denies irregular heart rhythm - *Respiratory Denies chest congestion, Denies cough - *Gastrointestinal Reports change in stools, Denies abdominal pain - *Musculoskeletal Reports abnormal walking, Reports joint swelling - *Neurologic Reports abnormal walking, Denies behavioral changes Meds Home Medications Medication Instructions Recorded Confirmed Type Atorvastatin Calcium [Lipitor 40mg 40 mg PO HS 05/17/18 09/06/20 History Tab] Cetirizine HCl 10 mg PO DAILY 05/17/18 09/06/20 History Insulin NPH Hum/Reg Insulin Hm 0 unit SQ DIRECTED 05/17/18 09/06/20 History [Humulin 70/30 Kwikpen] Omeprazole [Omeprazole 40mg 40 mg PO DAILY 05/17/18 09/06/20 History Capsule] Losartan Potassium 12.5 mg PO DAILY 11/07/19 09/06/20 History Promethazine HCl [Phenergan 25mg 12.5 mg PO Q6HP PRN 11/07/19 09/06/20 History tablet] Propylene Glycol/Peg 400 [Systane 1 drp OU DAILYP PRN 11/07/19 09/06/20 History 0.3-0.4% Eye Drops] lev
[2020-09-07 08:07] LABS: Basophils # 0.1 K/mm3 (0-0.2); Eosinophils # 0.1 K/mm3 (0.0-0.4); Eosinophils % 0.7 % (0.1-12.0); Hematocrit 36.5 % (37.0-47.0); Hemoglobin 12.5 g/dL (12.2-16.2); Lymphocytes # 0.4 K/mm3 (0.7-4.5); Lymphocytes % 4.3 % (10-50); Mean Corpuscular HGB Conc 34.1 g/dL (31.8-35.4); Mean Corpuscular Hemoglobin 26.3 pg (27.0-31.2); Mean Corpuscular Volume 77.2 fl (81-99); Mean Platelet Volume 7.2 fl (7.4-10.4); Monocytes # 0.8 K/mm3 (0.1-1.0); Monocytes % 9.2 % (1.7-9.3); Neutrophils # 7.1 K/mm3 (1.8-7.8); Neutrophils % 84.8 % (37.0-80.0); Platelet Count 543 K/mm3 (142-424); Red Blood Count 4.73 M/mm3 (4.20-5.40); Red Cell Distribution Width 17.5 % (11.5-17.5); White Blood Count 8.4 K/mm3 (4.8-10.8)
[2020-09-07 08:15] LABS: Alanine Aminotransferase 29 U/L (12-78); Albumin Level 1.7 g/dl (3.5-5.0); Albumin/Globulin Ratio 0.6 (1.1-1.8); Alkaline Phosphatase 111 U/L (38-126); Anion Gap 7.9 mEq/L (5-15); Aspartate Amino Transferase 63 U/L (14-36); Bilirubin,Total 0.5 mg/dl (0.2-1.3); Blood Urea Nitrogen 36 mg/dl (7-17); Carbon Dioxide 23 mmol/L (22.0-30.0); Chloride 95 mmol/L (98-107); Creatinine Clearance Estimated 58 mL/min (50-200); Estimated Glomerular Filt Rate 74 ml/min (>60); GFR (African American) 89 ML/MIN (>60); Glucose 110 mg/dl (74-100); Magnesium 1.6 mg/dl (1.6-2.3); Potassium 3.9 mmoL/L (3.5-5.1); Sodium 122 mmol/L (136-145); Total Protein,Serum 4.7 g/dl (6.3-8.2)
[2020-09-07 08:56] LABS: Adenovirus F 40/41, stool Not Detected (NotDetected); Astrovirus Not Detected (NotDetected); Campylobacter Not Detected (NotDetected); Clostridium Difficile A/B, PCR Not Detected (NotDetected); Cryptosporidium Not Detected (NotDetected); Cyclospora Cayetanesis Not Detected (NotDetected); Entamoeba histolytica Not Detected (NotDetected); Enteroaggregative E coli Not Detected (NotDetected); Enteropathogenic E coli Not Detected (NotDetected); Enterotoxigenic E coli Not Detected (NotDetected); Giardia lamblia Not Detected (NotDetected); Norovirus Not Detected (NotDetected); Plesimonas Shigalloides, PCR Not Detected (NotDetected); Rotavirus A Not Detected (NotDetected); Salmonella, PCR Not Detected (NotDetected); Sapovirus Not Detected (NotDetected); Shiga-like toxin E coli Not Detected (NotDetected); Shigella Enterovasive E coli Not Detected (NotDetected); Vibrio Cholerae Not Detected (NotDetected); Vibrio, PCR Not Detected (NotDetected); Yersinia Entercolitica, PCR Not Detected (NotDetected)
--- NOTE | 2020-09-07 09:08 | PC.NURSE ---
Addendum entered by Rosette Gonzales RN 09/07/20 09:09: notified md at 0855 Original Note: Notified MD of pt Calcium of 7.0. also clarified order for pt lasix. (has 2 separate orders for 40mg iv) per md pt only needs 40mg iv and order 2 amps of Calcium Gluconate iv now.
--- NOTE | 2020-09-07 09:33 | SW/DCPLANNER ---
Addendum entered by [facility] 09/11/20 14:27: Eliana with [facility] has stated that she has received approval for admission today for this patient. Eliana has stated that patient can admit today by 6PM or tomorrow. Eliana has stated that patient will NOT need another COVID swab for today or tomorrow. I will continue to follow up with and Eliana from [facility]. Addendum entered by [facility] 09/11/20 14:18: Currently still waiting to hear back from Eliana at [facility] regarding precert for this patient. Addendum entered by [facility] 09/11/20 09:37: Eliana with [facility] has stated that she has started a new precert for this patient. Dr Ray plan is that pending labs show improvement could discharge to [facility] level of care later this afternoon. Addendum entered by [facility] 09/10/20 11:46: I have informed Eliana with [facility] that this patient should be ready for discharge tomorrow pending no setbacks. Addendum entered by [facility] 09/09/20 10:29: Updated patient information has been faxed to Eliana with [facility]. Addendum entered by [facility] 09/08/20 14:26: Eliana with [facility] stated that she received authorization from patients insurance to be admitted to [facility]. I will continue to update Eliana once this patient is medically stable for discharge. Addendum entered by [facility] 09/08/20 10:23: I have notified Eliana with [facility] that this patient will not be ready for discharge till the end of the week due to fluid and b/p issues. Addendum entered by [facility] 09/07/20 14:20: Eliana from [facility] is willing to accept this patient pending precert from patients insurance. Eliana will still precert today. I will confirm prior to discharge if patient will need any additional COVID testing. Addendum entered by [facility] 09/07/20 12:36: Eliana with [facility] is currently reviewing patient information. Original Note: I spoke with this patient this morning regarding discharge plans once medically stable for discharge. Patient stated that she currently resides at home with her 13 year old grand daughter. Patient stated that she is not ambulating any better at time of discharge she will need placement. Patient stated that she feels unsafe to return home at this time and is agreeable to placement. Patient stated that she prefer [facility] in [place], if no beds available then would be willing to discharge to [facility]. I will fax information to Noy at [facility] this morning. Patient could be ready for discharge within the next two days pending no setbacks.
--- NOTE | 2020-09-07 10:03 | HMH.OTEV ---
OT Inpatient Evaluation Rehab OT IP Evaluation Start: 09/07/20 07:47 Freq: ONCE Status: Complete Protocol: Document 09/07/20 09:46 SAE (Rec: 09/07/20 10:02 SAE [id number]) Rehab OT IP Assessment Subjective History *Admission Date: 09/06/20 *Chief complaint: Weakness/ edema *History of present illness: 59-year-old white female with long history of diabetes, insulin requiring, morbid obesity, hyperlipidemia and chronic lymphedema. She gives a somewhat convoluted history of being in her normal state of somewhat compromised health until July 25, when she slept in one position all night and woke up with some aches and pains and felt that she was very tired and slightly more swollen. Labs were done which revealed minimally elevated BNP, normal troponins and sodium levels in the upper 120s as well as normal renal function, but her TSH was noted to be elevated at 11. She was placed on levothyroxine replacement therapy, and she states that since that time she has had increasing edema and weakness and inability to walk. This culminated in an episode of diarrhea and watery stools over the past 48 hours which prompted an ER visit. In the emergency department yesterday she was noted to have hyponatremia with a sodium of 119. Worsening anasarca, interestingly BNP was essentially still normal along with normal troponins. She was given 1 L of normal saline, stool cultures and PCR testing was done and she was placed in the hospital because
--- NOTE | 2020-09-07 10:16 | PC.NURSE ---
pt legs are notably swollen in appearance, 1+ edema noted. pt is unable to lift her legs from flat in the bed. pt is an assist times 2 to get up from lower chairs and commode. pt legs are noted to be purplish when dangling for short amount of time.
--- NOTE | 2020-09-07 11:22 | HMH.PTEV ---
Physical Therapy Evaluation Rehab PT IP Evaluation Start: 09/07/20 07:47 Freq: ONCE Status: Active Protocol: Document 09/07/20 11:18 PHORNE (Rec: 09/07/20 11:22 PHORNE [id number]) Subjective/History History History 59 yowf adm to [facility] with general weakness. She reports she lives alone, no steps to enter the home and has a RW if she needs it for help with ambulation. Subjective Subjective Pt c/o pain and tenderness throughout B LE. Rehab PT IP Eval Objective Appearance Patient Behavior Appropriate Patient Orientation Person,Place,Time Difficulty following instructions none Speech Pattern Clear Ambulation Patient Able to Ambulate Yes Ambulation Observation IP General Gait Pattern Observation Wide Based Gait,Shuffling Step Ambulation Distance (feet) 5 Ambulation Assistive Device Rolling Walker Ambulation Ability Supervision/Stand by Balance Ability to Arise Able, uses arms to help Sitting Balance Steady, safe Standing Balance Steady, wide stance Dynamic Sitting Balance Ability Good Dynamic Standing Balance Ability Fair Transfers Chair Transfer Ability Contact Guard/Hand Hold Sit to Stand Bed Transfer Ability Contact Guard/Hand Hold Sit to Stand Chair Transfer Ability Contact Guard/Hand Hold ROM All Extremities PT ROM Status WFL MMT All Extremities PT MMT WFL Abnormal MMT Grade B LE grossly 3/5 Rehab PT IP prob,goals,plan Problems Date of Evaluation: 09/07/20 PT IP Problems Bed Mobility,Transfers,Gait Rehab Potential Rehab Potential Good Plan PT Intervention Plan Bed Mobility,Transfers,Gait, Therapeutic Exercise PT Plan Frequency BID Duration LOS Discharge Goals Bed Transfer Ability Supervision/Stand by Sit to Stand Chair Transfer Ability Supervision/Stand by Ambulation Assistive Device Rolling Walker Ambulation Distance (feet) 20 Discharge Plan PT Discharge Plan Pt is most appropriate for rehab placement at this time, but could return home once medically stable if mobility improves. She does reports assistance available at [facility] from her grand-daughter. G -code Required No Eval Complexity Eval Charge Codes 58536 - Moderate Comple
[2020-09-07 12:43] LABS: POC Glucose,Bedside 159 (70-110)
[2020-09-07 16:58] LABS: POC Glucose,Bedside 153 (70-110)
--- NOTE | 2020-09-07 17:23 | PC.NURSE ---
pt has been up to the chair this shift. she has bee a/ox4 and had no complaints other than frequent bathroom trips. neff was dc this am and pt has voided since then. pt has had multiple episodes of diarrhea when she voids urine as well. lungs are clear, bowel sounds active. during q2 nurse round (1640) pt states she felt like her vision was going black. bp and fsbs checked. bp 65/34 (70/40 manually) and fsbs 153. Dr Ram notified. order to DC pt IV lasix and start 1000ml fluid bolus at 250ml/hr. will continue to monitor.
[2020-09-07 19:08] LABS: Lactic Acid 4.6 mmol/L (0.7-2.1)
--- NOTE | 2020-09-07 20:18 | PC.NURSE ---
DBesson rounded on floor at approx 1820. notified pt bp still low. upon assessment with md it was noted that the pt urine culture was growing gram neg rods. md ordered pt to have lactic acid drawn and blood cultures. pt is to have 1000ml bolus (2nd one) as well as start rocephin daily. per md if lactic acid is elevated, start sepsis bolus.
[2020-09-07 22:06] LABS: POC Glucose,Bedside 148 (70-110)
[2020-09-07 22:42] LABS: Reflex Lactic Add Lactic Reflex
[2020-09-07 23:59] LABS: Lactic Acid Follow Up (RFLX 1) 5.1 mmol/L (0.7-2.1)
[2020-09-08] VITALS (28 sets, daily range): BP systolic 68–132; BP diastolic 47–82; PULSE 81–120; RESP 17–22; TEMP 36.4–37.1; O2SAT 94–99; BMI 58.0
--- NOTE | 2020-09-08 00:49 | P.ENSEP_ITS ---
[facility] Tissue Perfusion Eval Sepsis Re-Evaluation Performed: Yes Date Performed: 09/08/20 Time Performed: 02:00
[2020-09-08 01:16] LABS: Reflex Lactic (2 hrs) Add Lactic Reflex
[2020-09-08 02:04] LABS: Lactic Acid Follow up (RFLX 2) 4.5 mmol/L (0.7-2.1)
--- NOTE | 2020-09-08 02:42 | PC.NURSE ---
Pt noted to trigger septic shock @ 1908 due to lactic of 4.6. Pt was administered additional fluids of 2110 ml after initial 2 liter of fluids prior for a total amount of 4110 ml to equal sepsis bolus amount per weight. Pt continued to remain sepsis after bolus along with lactic increasing. MD García notified and pt was placed on levophed gtt initiated at 8 mcg/min. Tissue perfusion reassessment completed by . Pt is currently on 8 mcg/min. BP is 93/61. Lactic has improved. Pt has been up to BSC multiple times with assist x2. Has had 4 BMs this shift. Son and jerome. No other concerns at this time. Will continue to monitor.
[2020-09-08 04:14] LABS: C difficile Toxins AB, EIA Negative (Negative)
[2020-09-08 06:27] LABS: POC Glucose,Bedside 119 (70-110)
[2020-09-08 06:36] LABS: Basophils # 0.1 K/mm3 (0-0.2); Basophils % 1.1 % (0.1-2.0); Eosinophils # 0.1 K/mm3 (0.0-0.4); Hematocrit 36.3 % (37.0-47.0); Hemoglobin 12.3 g/dL (12.2-16.2); Lymphocytes # 0.5 K/mm3 (0.7-4.5); Mean Corpuscular HGB Conc 33.7 g/dL (31.8-35.4); Mean Corpuscular Hemoglobin 26.4 pg (27.0-31.2); Mean Corpuscular Volume 78.2 fl (81-99); Mean Platelet Volume 7.5 fl (7.4-10.4); Monocytes # 1.4 K/mm3 (0.1-1.0); Neutrophils # 7.2 K/mm3 (1.8-7.8); Neutrophils % 77.9 % (37.0-80.0); Platelet Count 650 K/mm3 (142-424); Red Blood Count 4.65 M/mm3 (4.20-5.40); Red Cell Distribution Width 17.5 % (11.5-17.5); White Blood Count 9.3 K/mm3 (4.8-10.8)
[2020-09-08 06:43] LABS: Chloride 95 mmol/L (98-107); Sodium 123 mmol/L (136-145)
[2020-09-08 06:44] LABS: Potassium 3.2 mmoL/L (3.5-5.1)
[2020-09-08 06:46] LABS: Alanine Aminotransferase 27 U/L (12-78); Albumin Level 1.7 g/dl (3.5-5.0); Albumin/Globulin Ratio 0.6 (1.1-1.8); Alkaline Phosphatase 116 U/L (38-126); Anion Gap 12.2 mEq/L (5-15); Aspartate Amino Transferase 59 U/L (14-36); Bilirubin,Total 0.4 mg/dl (0.2-1.3); Blood Urea Nitrogen 37 mg/dl (7-17); Carbon Dioxide 19 mmol/L (22.0-30.0); Creatinine Clearance Estimated 58 mL/min (50-200); Estimated Glomerular Filt Rate 74 ml/min (>60); GFR (African American) 89 ML/MIN (>60); Glucose 117 mg/dl (74-100); Total Protein,Serum 4.7 g/dl (6.3-8.2)
--- NOTE | 2020-09-08 08:42 | HMH.ACPN2 ---
Internal Medicine - PN: Subj *Date: 09/08/20 *Time: 08:30 Interval history: Ms. Bosch is pleasant this morning sitting in bedside chair. Continues to look quite ill with significant anasarca and lower extremity edema. Her son is at bedside with her on rounds this morning. Patient is alert and oriented, asking appropriate questions. Reviewed morning lab work, no significant change in electrolytes. Reviewed overnight orders and events. Overnight Pt decompensated with development of Hypotension. Initiated on Levophed drip with goal maps greater than 65. Has been on stable dosing all night with improvement in blood pressure. No loss of consciousness at any point. Lactate somewhat better this morning. Met criteria for septic shock overnight. Patient denies significant chest pain, shortness of breath, nausea or vomiting. Is extremely weak and unable to support her weight due to fluid gain and girth of legs. Exam Vital signs and Labs for Last 24 Hours: Temp Pulse Resp BP Pulse Ox 98.6 F 101 H 20 93/68 L 97 09/08/20 08:00 09/08/20 06:30 09/08/20 06:30 09/08/20 06:30 09/08/20 06:30 Laboratory Results - last 24 hr 09/06/20 11:10: Urine Color Yellow, Urine Appearance Clear, Urine pH 5.5, Ur Specific [place] 1.025, Urine Protein Negative, Urine Glucose (UA) Negative, Urine Ketones Negative, Urine Blood Negative, Urine Nitrate Negative, Urine Bilirubin Negative, Urine Urobilinogen 0.2, Ur Leukocyte Esterase Negative, Urine RBC None, Urine WBC None, Ur Squamous Epith Cells 3-5, Calcium Oxalate Crystal 1+, Urine Bacteria 2+, Coarse Granular Casts 10-20 09/06/20 12:15: C. difficile Toxin A&B Negative 09/07/20 08:47: Stl Aeromonas (PCR) Not detected, Stl C. cayetanensis PCR Not detected, Stool Rotavirus (PCR) Not detected, Stl Adenov F 40/41 PCR Not detected, Stool Astrovirus (PCR) Not detected, Stool Campylobacter PCR Not detected, Stl C.difficile Tox PCR Not detected, Stool Cryptosporidium PCR Not detected, Stl E.coli Shiga Tox PCR Not detected, Stool E coli O157 PCR Not detected, Stl Enterotoxigenic E PCR Not detected, Stool EPEC (PCR) Not detected, Stool EAEC (PCR) Not detected, Stl E. histolytica PCR Not detected, Stool Giardia Lamblia PCR Not detected, Stool Salmonella PCR Not detected, Stool Sapovirus (PCR) Not detected, Stl P. shigelloides PCR Not detected, Stl Shigella/EIEC PCR Not detected, St Y.enterocolitica PCR Not detected, Stool Vibrio (PCR) Not detected, Stl Vibrio cholerae PCR Not detected, Stl Norovirus GI/GII PCR Not detected 09/07/20 12:24: POC Glucose 159 H 09/07/20 16:40: POC Glucose 153 H 09/07/20 18:12: Lactate 4.6 H 09/07/20 21:35: POC Glucose 148 H 09/07/20 23:11: Lactate 5.1 H 09/08/20 01:42: Lactate 4.5 H 09/08/20 05:40: POC Glucose 119 H 09/08/20 06:14: WBC 9.3, RBC 4.65, Hgb 12.3, Hct 36.3 L, MCV 78.2 L, MCH 26.4 L, MCHC 33.7, RDW 17.5, Plt Count 650 H, MPV 7.5, Neut % (Auto) 77.9, Lymph % (Auto) 5.0 L, [place] % (Auto) 15.0 H, Eos % (Auto) 1.0, Baso % (Auto) 1.1, Neut # (Auto) 7.2, Lymph # (Auto) 0.5 L, [place] # (Auto) 1.4 H, Eos # (Auto) 0.1, Baso # (Auto) 0.1 09/08/20 06:14: Sodium 123 L, Potassium 3.2 L, Chloride 95 L, Carbon Dioxide 19 L, Anion Gap 12.2, BUN 37 H, Creatinine 0.80, Estimated Creat Clear 58, Estimated GFR 74, Est GFR ( Amer) 89, Glucose 117 H, Calcium 7.0 L, Total Bilirubin 0.4, AST 59 H, ALT 27, Alkaline Phosphatase 116, Total Protein 4.7 L, Albumin 1.7 L, Globulin 3.0, Albumin/Globulin Ratio 0.6 L I & O for Last 24 hours: Intake & Output 09/05/20 09/06/20 09/07/20 09/08/20 23:59 23:59 23:59 23:59 Intake Total 1600 / 1600 1568 / 1568 Output Total 1501 / 1501 2300 / 2300 Balance 99 / -732 / -732 Weight 140.614 kg 137 kg 143.08 kg Microbiology Reports for the Last 24 Hours: Microbiology 09/06/20 11:10 Urine,Catheterized Urine Culture - Final Klebsiella pneumoniae - Constitutional mild distress, morbidly obese - *Routine HEEN
--- NOTE | 2020-09-08 09:15 | CA_ITS ---
APPROVED REPORT EXAM: Comprehensive 2D, Doppler, and color-flow Echocardiogram Recreation Therapy Director: Lexie Mojica, RT(R) Ht: 5 ft 2 in Wt: 315lbs BSA: 2.32 BP: 101/55 mmHg Indications: EF check only, anasarca, ex smoker, morbid obesity, DM, HTN, hyperlipidemia, septic shock, CHF, GERD M-Mode Dimensions RVDd 2.24 cm (0.9-2.6) LVDd 5.30 cm (3.5-5.7) LVDs 4.07 cm (3.5-5.7) IVSd 0.57 cm (0.6-1.1) PWd 0.60 cm (0.6-1.1) EF (Teich) 46.10% FS 23.20% EDV (Teich) 135.30 mL ESV (Teich) 72.90 mL LV Diastology E Decel Time 200.00 (160-240 msec) E/A Ratio 0.9 MED E' 7.60 (< 7 cm/sec) E'/MED E' Ratio 11.36 (>14) LAT E' 13.10 (<10 cm/sec) E/LAT E' Ratio 6.59 (>14) Mitral Valve MV E Max Tim. 86.00 (40-130 cm/s) MV A Velocity 100.00 (40-130 cm/s) E/A Ratio 0.87 MV Decel. Time 200.00 (160-240 ms) MV PHT 59.00 ms Left Ventricle Left atrium is normal size, left ventricle is normal size, hyperdynamic left ventricular systolic function, visually estimated ejection fraction over 65% with no regional wall motion abnormality, diastolic parameters are inconclusive. Right Ventricle Right atrium and right ventricle are normal size and contractility. Aortic Valve Aortic valve is grossly normal, there is no aortic stenosis or aortic insufficiency. Mitral Valve Mitral valve grossly normal, there is trace mitral regurgitation. Tricuspid Valve Tricuspid grossly normal, there is trace tricuspid regurgitation, tricuspid regurgitation jet velocity is inadequate for calculation of the right ventricular systolic pressure. Pulmonic Valve Pulmonic valve is poorly visualized. Great Vessels Aortic root is normal size. Pericardium No significant pericardial effusion noted. Conclusion 1. Normal left ventricular size, hyperdynamic left ventricular systolic function, visually estimated ejection fraction over 65% with no regional wall motion abnormality, diastolic parameters are inconclusive. 2. Trace mitral and tricuspid regurgitation. 3. No significant pericardial effusion noted. Electronically signed by : Nhan Fierro, 09/08/2020 19:06:03
--- NOTE | 2020-09-08 09:16 | XR_ITS ---
PROCEDURE: XR CHEST PORTABLE PICC PLAC CLINICAL HISTORY: Confirm PICC line placement COMPARISON: CR XR CHEST PORTABLE from 11/06/[address] ANGIO CHEST from 11/06/2019 DX XR CHEST 2V from 02/20/2020 CR XR CHEST PORTABLE from 09/06/2020 FINDINGS: Left upper extremity PICC line has been placed. The tip is in good position in the proximal SVC region. Lungs are clear of acute infiltrate. Calcified granuloma is present in the right upper lobe. Normal heart size. No acute bony abnormalities. IMPRESSION: Status post left upper extremity PICC line placement with the tip in good position in the region of the SVC Dictated by: Gab Owens MD 09/08/2020 12:48 Gab Owens MD in [facility] 09/08/2020 12:48
[2020-09-08 10:32] LABS: Microscopic, Urine URINE MICROSCOPIC (MICROSCOPIC)
[2020-09-08 10:36] LABS: Appearance,Urine CLEAR (Clear); Bilirubin,Urine Negative (Negative); Blood, Urine Negative (Negative); Color,Urine YELLOW (Yellow); Glucose,Urine (UA) Negative (Negative); Ketones,Urine Negative (Negative); Leukocyte Esterase,Urine TRACE (Negative); Nitrate,Urine Negative (Negative); PH,Urine 5.5 (5.0-8.5); Protein,Urine Negative (Negative); Specific Gravity, Urine 1.025 (1.005-1.030); Urobilinogen,Urine 0.2 EU/dl (0.2)
[2020-09-08 10:38] LABS: Urea Nitrogen,Urine Random 777 mg/dl (Not Estab.)
[2020-09-08 10:47] LABS: WBC,Urine 20-50 #/hpf (0-3)
[2020-09-08 11:46] LABS: POC Glucose,Bedside 122 (70-110)
--- NOTE | 2020-09-08 16:02 | PC.NURSE ---
Pt has been pleasant and cooperative this shift, is currently sitting up in chair, has had neff catheter placed this am for accurate I&O, picc line placed, remains on levophed drip at 8cmg, has been tachycardic this afternoon, HR 110-120, echo completed this am, had large bm this shift, lung sounds coarse in bll, 3+ pitting edema to ble that extends up her back, up with assist x2, has worked with physical therapy this shift, vital signs stable at this time, no s/s of distress noted, will continue to monitor for changes.
--- NOTE | 2020-09-08 16:17 | PC.NURSE ---
BP 115/72, MAP 87, levophed drip titrated to 6mcg at this time, will continue to monitor.
[2020-09-08 16:48] LABS: POC Glucose,Bedside 243 (70-110)
--- NOTE | 2020-09-08 17:40 | PC.NURSE ---
BP 124/82, HR 118, levophed titrated to 4mcg at this time
--- NOTE | 2020-09-08 18:21 | PC.NURSE ---
1800- BP 132/82, HR 118, Levophed titrated off at this time
[2020-09-08 19:44] LABS: Anion Gap 10.8 mEq/L (5-15); Blood Urea Nitrogen 36 mg/dl (7-17); Calcium 7.1 mg/dl (8.4-10.2); Carbon Dioxide 21 mmol/L (22.0-30.0); Chloride 95 mmol/L (98-107); Creatinine Clearance Estimated 66 mL/min (50-200); Estimated Glomerular Filt Rate 86 ml/min (>60); GFR (African American) 104 ML/MIN (>60); Glucose 249 mg/dl (74-100); Magnesium 1.6 mg/dl (1.6-2.3); Potassium 3.8 mmoL/L (3.5-5.1); Sodium 123 mmol/L (136-145)
[2020-09-08 20:52] LABS: Vitamin B12 694 pg/mL (239-931)
[2020-09-08 21:19] LABS: POC Glucose,Bedside 278 (70-110)
[2020-09-09] VITALS (11 sets, daily range): BP systolic 94–123; BP diastolic 52–71; PULSE 94–120; RESP 16–22; TEMP 36.4–36.7; O2SAT 94–98; BMI 58.1
[2020-09-09 05:20] LABS: POC Glucose,Bedside 162 (70-110)
[2020-09-09 06:34] LABS: Basophils # 0.1 K/mm3 (0-0.2); Eosinophils # 0.1 K/mm3 (0.0-0.4); Red Cell Distribution Width 17.6 % (11.5-17.5)
[2020-09-09 06:42] LABS: Alanine Aminotransferase 25 U/L (12-78); Albumin Level 1.5 g/dl (3.5-5.0); Albumin/Globulin Ratio 0.6 (1.1-1.8); Alkaline Phosphatase 96 U/L (38-126); Anion Gap 6.6 mEq/L (5-15); Aspartate Amino Transferase 48 U/L (14-36); Bilirubin,Total 0.3 mg/dl (0.2-1.3); Blood Urea Nitrogen 34 mg/dl (7-17); Carbon Dioxide 25 mmol/L (22.0-30.0); Chloride 96 mmol/L (98-107); Creatinine Clearance Estimated 58 mL/min (50-200); Estimated Glomerular Filt Rate 74 ml/min (>60); GFR (African American) 89 ML/MIN (>60); Globulin 2.7 g/dL (1.3-3.2); Glucose 144 mg/dl (74-100); Magnesium 1.5 mg/dl (1.6-2.3); Sodium 125 mmol/L (136-145); Total Protein,Serum 4.2 g/dl (6.3-8.2)
[2020-09-09 07:09] LABS: Basophils % 0.8 % (0.1-2.0); Hematocrit 33.5 % (37.0-47.0); Lymphocytes # 0.5 K/mm3 (0.7-4.5); Mean Corpuscular HGB Conc 33.1 g/dL (31.8-35.4); Mean Corpuscular Hemoglobin 26.2 pg (27.0-31.2); Mean Corpuscular Volume 79.3 fl (81-99); Mean Platelet Volume 7.3 fl (7.4-10.4); Monocytes # 0.8 K/mm3 (0.1-1.0); Monocytes % 11.2 % (1.7-9.3); Neutrophils # 5.8 K/mm3 (1.8-7.8); Neutrophils % 79.9 % (37.0-80.0); Platelet Count 418 K/mm3 (142-424); Red Blood Count 4.22 M/mm3 (4.20-5.40); White Blood Count 7.3 K/mm3 (4.8-10.8)
[2020-09-09 07:34] LABS: Lactic Acid 4.8 mmol/L (0.7-2.1)
[2020-09-09 07:35] LABS: Calcium 6.9 mg/dl (8.4-10.2); Potassium 2.6 mmoL/L (3.5-5.1)
[2020-09-09 07:39] LABS: Hemoglobin 11.1 g/dL (12.2-16.2)
--- NOTE | 2020-09-09 07:58 | HMH.ACPN2 ---
Internal Medicine - PN: Chucho *Date: 09/09/20 *Time: 07:58 Interval history: Overall patient has improved, blood pressure is improved, she has been off Levophed for most of the night. She is alert, conscious, states she feels a little bit better and thinks her swelling is better. Exam Vital signs and Labs for Last 24 Hours: Temp Pulse Resp BP Pulse Ox 97.5 F L 97 H 18 94/52 L 97 09/09/20 04:00 09/09/20 06:00 09/09/20 06:00 09/09/20 06:00 09/09/20 06:00 Laboratory Results - last 24 hr 09/08/20 10:10: Urine Color Yellow, Urine Appearance Clear, Urine pH 5.5, Ur Specific [place] 1.025, Urine Protein Negative, Urine Glucose (UA) Negative, Urine Ketones Negative, Urine Blood Negative, Urine Nitrate Negative, Urine Bilirubin Negative, Urine Urobilinogen 0.2, Ur Leukocyte Esterase Trace, Urine RBC None, Urine WBC 20-50, Ur Squamous Epith Cells None, Urine Bacteria None 09/08/20 10:10: Ur Random Urea Nitrogn 777 09/08/20 11:32: POC Glucose 122 H 09/08/20 16:34: POC Glucose 243 H 09/08/20 19:25: Sodium 123 L, Potassium 3.8, Chloride 95 L, Carbon Dioxide 21 L, Anion Gap 10.8, BUN 36 H, Creatinine 0.70, Estimated Creat Clear 66, Estimated GFR 86, Est GFR ( Amer) 104, Glucose 249 H D, Calcium 7.1 L, Magnesium 1.6 09/08/20 19:25: Vitamin B12 694 09/08/20 21:03: POC Glucose 278 H 09/08/20 21:31: Urine Total Protein 11.0 09/09/20 05:11: POC Glucose 162 H 09/09/20 06:05: WBC 7.3, RBC 4.22, Hgb 11.1 L, Hct 33.5 L, MCV 79.3 L, MCH 26.2 L, MCHC 33.1, RDW 17.6 H, Plt Count 418 D, MPV 7.3 L, Neut % (Auto) 79.9, Lymph % (Auto) 7.0 L, [place] % (Auto) 11.2 H, Eos % (Auto) 1.0, Baso % (Auto) 0.8, Neut # (Auto) 5.8, Lymph # (Auto) 0.5 L, [place] # (Auto) 0.8, Eos # (Auto) 0.1, Baso # (Auto) 0.1 09/09/20 06:05: Sodium 125 L, Potassium 2.6 L* D, Chloride 96 L, Carbon Dioxide 25, Anion Gap 6.6, BUN 34 H, Creatinine 0.80, Estimated Creat Clear 58, Estimated GFR 74, Est GFR ( Amer) 89, Glucose 144 H D, Calcium 6.9 L, Magnesium 1.5 L, Total Bilirubin 0.3, AST 48 H, ALT 25, Alkaline Phosphatase 96, Total Protein 4.2 L, Albumin 1.5 L D, Globulin 2.7, Albumin/Globulin Ratio 0.6 L 09/09/20 06:05: Lactate 4.8 H I & O for Last 24 hours: Intake & Output 09/06/20 09/07/20 09/08/20 09/09/20 11:59 11:59 11:59 11:59 Intake Total 2690 / 2690 838 / 838 1519 / 1519 Output Total 2901 / 2901 900 / 900 5500 / 5500 Balance -211 / -211 -62 / -62 -3981 / -3981 Weight 265 lb 302 lb 0.533 oz 315 lb 7 oz 316 lb 3 oz Microbiology Reports for the Last 24 Hours: Microbiology 09/06/20 11:10 Urine,Catheterized Urine Culture - Final Klebsiella pneumoniae Narrative: Alert, oriented, vital signs unremarkable this morning. Lungs are clear, heart rate regular. Doughy edema throughout all of her extremities, worse on her calves. Abdomen soft. Neurologically intact, no rash, oropharynx clear. Assessment and Plan (1) Septic shock Status: Acute Category: Medical Code(s): A41.9 - Sepsis, unspecified organism; R65.21 - Severe sepsis with septic shock (2) Pyelonephritis Status: Acute Category: Medical Code(s): N12 - Tubulo-interstitial nephritis, not specified as acute or chronic (3) Asthma Status: Acute Category: Medical Code(s): J45.909 - Unspecified asthma, uncomplicated (4) Diarrhea of presumed infectious origin Status: Acute Category: Medical Code(s): R19.7 - Diarrhea, unspecified (5) Acute hyponatremia Status: Acute Category: Medical Code(s): E87.1 - Hypo-osmolality and hyponatremia (6) Anasarca Status: Acute Category: Medical Code(s): R60.1 - Generalized edema (7) Body mass index (BMI) greater than 50 Status: Chronic Category: Medical (8) Diabetes mellitus type 2, insulin dependent Status: Chronic Category: Medical Code(s): E11.9 - Type 2 diabetes mellitus without complications; Z79.4 - assisted (current) use of insulin (9) Hypothyroidism Status:
[2020-09-09 10:23] LABS: Reflex Lactic Add Lactic Reflex
[2020-09-09 11:28] LABS: Lactic Acid Follow Up (RFLX 1) 4.5 mmol/L (0.7-2.1)
[2020-09-09 11:53] LABS: POC Glucose,Bedside 155 (70-110)
--- NOTE | 2020-09-09 14:59 | DIET.NUTRFU ---
Addendum entered by Delia Salazar 09/11/20 10:34: Pt has had 7L diuresed, suspect weights are inaccurate, she will have a standing scale weight taken today. Significant fluid retention without underlying cardiac/renal etiology may be related to malnutrition. Pt with moderate protein calorie malnutrition related to disordered eating for the past year. She has been provided with diet edu/counseling for malnutrition and suspected nutrient deficiencies as well as DM, CHF, healthy weight loss and encouraged to f/u post dc. Pt is motivated and makes statements of intention towards diet/lifestyle change. Original Note: PO intakes 100%, weight up 5#, bowels normal- does continue with some diarrhea. K, Mag, Ca all low and being replaced. Pt further assessed for diet hx. Pt states she has been eating 800-900kcal/day for around a year, she states the weight was falling off at first and she regained all of it. [facility] records show no weight loss but actually gradual weight gain of 20# past 2 years. She admits to very little vegetable intake and overall poor nutritional variety and quality. While I am skeptical of validity diet hx in total, it is evident pt is undernourished. Pt strongly encouraged against highly restrictive/hypocaloric diets and educated on importance meeting nutritional needs while achieving sustainable fat loss through balanced/consistent cho diet. Continuing to monitor/educate t/o stay.
--- NOTE | 2020-09-09 15:42 | PC.NURSE ---
Patient has been pleasant and cooperative this shift, has been up to chair for most of the day, HR reg, 3+ pitting edema noted peripherally, SCDS in place ble, lungs with fine crackles in bl bases, on RA, FC patent and draining clear yellow urine, no s/s of distress noted, vss, will continue to monitor.
[2020-09-09 18:21] LABS: POC Glucose,Bedside 148 (70-110)
[2020-09-09 19:38] LABS: POC Glucose,Bedside 180 (70-110)
[2020-09-10] VITALS (11 sets, daily range): BP systolic 101–122; BP diastolic 51–73; PULSE 105–119; RESP 16–22; TEMP 36.7–37.2; O2SAT 97–98; BMI 57.6
[2020-09-10 05:23] LABS: Basophils # 0.1 K/mm3 (0-0.2); Basophils % 1.3 % (0.1-2.0); Eosinophils # 0.1 K/mm3 (0.0-0.4); Eosinophils % 1.4 % (0.1-12.0); Hemoglobin 10.7 g/dL (12.2-16.2); Lymphocytes # 0.4 K/mm3 (0.7-4.5); Lymphocytes % 6.7 % (10-50); Mean Corpuscular HGB Conc 34.7 g/dL (31.8-35.4); Mean Corpuscular Hemoglobin 26.9 pg (27.0-31.2); Mean Corpuscular Volume 77.5 fl (81-99); Mean Platelet Volume 6.9 fl (7.4-10.4); Monocytes # 0.5 K/mm3 (0.1-1.0); Monocytes % 7.2 % (1.7-9.3); Neutrophils # 5.5 K/mm3 (1.8-7.8); Neutrophils % 83.4 % (37.0-80.0); Platelet Count 433 K/mm3 (142-424); Red Cell Distribution Width 17.3 % (11.5-17.5); White Blood Count 6.6 K/mm3 (4.8-10.8)
[2020-09-10 05:24] LABS: Chloride 95 mmol/L (98-107); Sodium 125 mmol/L (136-145)
[2020-09-10 05:24] LABS: POC Glucose,Bedside 111 (70-110)
[2020-09-10 05:27] LABS: Alanine Aminotransferase 25 U/L (12-78); Albumin Level 1.7 g/dl (3.5-5.0); Albumin/Globulin Ratio 0.7 (1.1-1.8); Alkaline Phosphatase 100 U/L (38-126); Anion Gap 6.5 mEq/L (5-15); Aspartate Amino Transferase 45 U/L (14-36); Bilirubin,Total 0.3 mg/dl (0.2-1.3); Blood Urea Nitrogen 32 mg/dl (7-17); Carbon Dioxide 26 mmol/L (22.0-30.0); Creatinine Clearance Estimated 66 mL/min (50-200); Estimated Glomerular Filt Rate 86 ml/min (>60); GFR (African American) 104 ML/MIN (>60); Globulin 2.6 g/dL (1.3-3.2); Total Protein,Serum 4.3 g/dl (6.3-8.2)
[2020-09-10 05:28] LABS: Calcium 7.5 mg/dl (8.4-10.2); Glucose 111 mg/dl (74-100)
[2020-09-10 05:33] LABS: Potassium 2.5 mmoL/L (3.5-5.1)
[2020-09-10 05:53] LABS: Sodium, Urine 24 mmol/L (Not Estab.)
--- NOTE | 2020-09-10 07:39 | HMH.ACPN2 ---
Internal Medicine - PN: Subj *Date: 09/10/20 *Time: 07:39 Interval history: Patient felt fairly well overnight, has been little bit more mobile. Significant anasarca remains. She did have a slightly better output yesterday with albumin/Bumex infusions. Remains hypokalemic. Exam Vital signs and Labs for Last 24 Hours: Temp Pulse Resp BP Pulse Ox 98.6 F 110 H 21 107/55 L 98 09/10/20 03:40 09/10/20 04:00 09/10/20 03:40 09/10/20 03:40 09/10/20 03:40 Laboratory Results - last 24 hr 09/08/20 10:10: Urine Sodium 24 09/09/20 06:05: WBC 7.3, RBC 4.22, Hgb 11.1 L, Hct 33.5 L, MCV 79.3 L, MCH 26.2 L, MCHC 33.1, RDW 17.6 H, Plt Count 418 D, MPV 7.3 L, Neut % (Auto) 79.9, Lymph % (Auto) 7.0 L, [place] % (Auto) 11.2 H, Eos % (Auto) 1.0, Baso % (Auto) 0.8, Neut # (Auto) 5.8, Lymph # (Auto) 0.5 L, [place] # (Auto) 0.8, Eos # (Auto) 0.1, Baso # (Auto) 0.1 09/09/20 11:08: Lactate 4.5 H 09/09/20 11:41: POC Glucose 155 H 09/09/20 16:35: POC Glucose 148 H 09/09/20 19:27: POC Glucose 180 H 09/10/20 05:02: POC Glucose 111 H 09/10/20 05:05: WBC 6.6, RBC 4.00 L, Hgb 10.7 L, Hct 31.0 L, MCV 77.5 L, MCH 26.9 L, MCHC 34.7, RDW 17.3, Plt Count 433 H, MPV 6.9 L, Neut % (Auto) 83.4 H, Lymph % (Auto) 6.7 L, [place] % (Auto) 7.2, Eos % (Auto) 1.4, Baso % (Auto) 1.3, Neut # (Auto) 5.5, Lymph # (Auto) 0.4 L, [place] # (Auto) 0.5, Eos # (Auto) 0.1, Baso # (Auto) 0.1 09/10/20 05:05: Sodium 125 L, Potassium 2.5 L*, Chloride 95 L, Carbon Dioxide 26, Anion Gap 6.5, BUN 32 H, Creatinine 0.70, Estimated Creat Clear 66, Estimated GFR 86, Est GFR ( Amer) 104, Glucose 111 H D, Calcium 7.5 L, Total Bilirubin 0.3, AST 45 H, ALT 25, Alkaline Phosphatase 100, Total Protein 4.3 L, Albumin 1.7 L D, Globulin 2.6, Albumin/Globulin Ratio 0.7 L I & O for Last 24 hours: Intake & Output 09/07/20 09/08/20 09/09/20 09/10/20 11:59 11:59 11:59 11:59 Intake Total 2690 / 2690 838 / 838 1759 / 1759 1390 / 1390 Output Total 2901 / 2901 900 / 900 5500 / 5500 3400 / 3400 Balance -211 / -211 -62 / -62 -3741 / -3741 -2009 / Weight 302 lb 0.533 oz 315 lb 7 oz 316 lb 3 oz 313 lb 2 oz Microbiology Reports for the Last 24 Hours: Microbiology 09/07/20 19:18 Blood Blood Culture - Preliminary NO GROWTH AFTER 48 HOURS 09/07/20 18:12 Blood Blood Culture - Preliminary NO GROWTH AFTER 48 HOURS 09/06/20 22:00 Anus CRE Surveillance Culture - Final 09/08/20 10:10 Urine,Clean Catch Urine Culture - Preliminary NO GROWTH AFTER 24 HOURS Narrative: Patient is alert, pleasant, oriented x3. Lungs have good air movement, heart rate regular. Abdomen soft, abdominal wall edema about the same. Peripheral edema is about the same, doughy, tender edema throughout her calves and thighs which is clinically about the same as previously. Good distal perfusion. Neurologically intact, global weakness noted. Oropharynx clear. Assessment and Plan (1) Septic shock Status: Acute Category: Medical Code(s): A41.9 - Sepsis, unspecified organism; R65.21 - Severe sepsis with septic shock (2) Pyelonephritis Status: Acute Category: Medical Code(s): N12 - Tubulo-interstitial nephritis, not specified as acute or chronic (3) Asthma Status: Acute Category: Medical Code(s): J45.909 - Unspecified asthma, uncomplicated (4) Diarrhea of presumed infectious origin Status: Acute Category: Medical Code(s): R19.7 - Diarrhea, unspecified (5) Acute hyponatremia Status: Acute Category: Medical Code(s): E87.1 - Hypo-osmolality and hyponatremia (6) Anasarca Status: Acute Category: Medical Code(s): R60.1 - Generalized edema (7) Body mass index (BMI) greater than 50 Status: Chronic Category: Medical (8) Diabetes mellitus type 2, insulin dependent Status: Chronic Category: Medical Code(s): E11.9 - Type 2 diabetes mellitus without complications; Z79.4 - Lo
[2020-09-10 12:05] LABS: POC Glucose,Bedside 161 (70-110)
[2020-09-10 13:39] LABS: Chloride 93 mmol/L (98-107); Sodium 125 mmol/L (136-145)
[2020-09-10 13:42] LABS: Anion Gap 10.9 mEq/L (5-15); Blood Urea Nitrogen 32 mg/dl (7-17); Calcium 7.6 mg/dl (8.4-10.2); Carbon Dioxide 24 mmol/L (22.0-30.0); Creatinine Clearance Estimated 66 mL/min (50-200); Estimated Glomerular Filt Rate 86 ml/min (>60); GFR (African American) 104 ML/MIN (>60); Glucose 164 mg/dl (74-100)
[2020-09-10 13:49] LABS: Potassium 2.9 mmoL/L (3.5-5.1)
--- NOTE | 2020-09-10 13:50 | PC.NURSE ---
Dr. Ram notified of K 2.9
--- NOTE | 2020-09-10 14:17 | PC.NURSE ---
Dr. Ram ordered Potassium Chloride 10mEq IV X 4 runs. Order faxed to pharmacy.
[2020-09-10 16:48] LABS: POC Glucose,Bedside 195 (70-110)
[2020-09-10 20:49] LABS: POC Glucose,Bedside 182 (70-110)
[2020-09-11] VITALS (8 sets, daily range): BP systolic 98–121; BP diastolic 57–73; PULSE 84–120; RESP 16–24; TEMP 36.6–36.8; O2SAT 96–99; BMI 57.6; BMI 127.8
[2020-09-11 05:49] LABS: Basophils # 0.1 K/mm3 (0-0.2); Basophils % 1.3 % (0.1-2.0); Eosinophils # 0.1 K/mm3 (0.0-0.4); Eosinophils % 1.7 % (0.1-12.0); Hematocrit 30.1 % (37.0-47.0); Hemoglobin 10.2 g/dL (12.2-16.2); Lymphocytes # 0.4 K/mm3 (0.7-4.5); Lymphocytes % 5.9 % (10-50); Mean Corpuscular HGB Conc 33.9 g/dL (31.8-35.4); Mean Corpuscular Hemoglobin 26.4 pg (27.0-31.2); Mean Corpuscular Volume 77.8 fl (81-99); Mean Platelet Volume 7.2 fl (7.4-10.4); Monocytes # 0.6 K/mm3 (0.1-1.0); Monocytes % 8.4 % (1.7-9.3); Neutrophils # 5.6 K/mm3 (1.8-7.8); Neutrophils % 82.6 % (37.0-80.0); Platelet Count 394 K/mm3 (142-424); Red Blood Count 3.87 M/mm3 (4.20-5.40); Red Cell Distribution Width 17.5 % (11.5-17.5); White Blood Count 6.8 K/mm3 (4.8-10.8)
[2020-09-11 05:50] LABS: POC Glucose,Bedside 115 (70-110)
[2020-09-11 05:57] LABS: Anion Gap 6.8 mEq/L (5-15); Blood Urea Nitrogen 28 mg/dl (7-17); Calcium 7.3 mg/dl (8.4-10.2); Carbon Dioxide 26 mmol/L (22.0-30.0); Chloride 96 mmol/L (98-107); Creatinine Clearance Estimated 66 mL/min (50-200); Estimated Glomerular Filt Rate 86 ml/min (>60); GFR (African American) 104 ML/MIN (>60); Glucose 108 mg/dl (74-100); Magnesium 1.5 mg/dl (1.6-2.3); Sodium 126 mmol/L (136-145)
[2020-09-11 06:00] LABS: Potassium 2.8 mmoL/L (3.5-5.1)
--- NOTE | 2020-09-11 06:09 | PC.NURSE ---
shift summary patient has had uneventful night. denied nausea, vomiting, soa, diarrhea or pain. neff draining clear, yellow urine. radiographer cardiac catheterization has shown st. breath sounds diminished throughout all [place]. remains awake alert and oriented. critical lab reported this am, awaiting for remainder of lab results before paging fermentation engineer doctor.
--- NOTE | 2020-09-11 08:30 | PC.NURSE ---
pt standing weight is 315.1 lbs.
--- NOTE | 2020-09-11 08:34 | HMH.DCSUM ---
General - General Admission date:: 09/06/20 Discharge date: 09/12/20 HPI HPI: 59-year-old white female with long history of diabetes, insulin requiring, morbid obesity, hyperlipidemia and chronic lymphedema. She gives a somewhat convoluted history of being in her normal state of somewhat compromised health until July 25, when she slept in one position all night and woke up with some aches and pains and felt that she was very tired and slightly more swollen. Labs were done which revealed minimally elevated BNP, normal troponins and sodium levels in the upper 120s as well as normal renal function, but her TSH was noted to be elevated at 11. She was placed on levothyroxine replacement therapy, and she states that since that time she has had increasing edema and weakness and inability to walk. This culminated in an episode of diarrhea and watery stools over the past 48 hours which prompted an ER visit. In the emergency department yesterday she was noted to have hyponatremia with a sodium of 119. Worsening anasarca, interestingly BNP was essentially still normal along with normal troponins. She was given 1 L of normal saline, stool cultures and PCR testing was done and she was placed in the hospital because of her weakness and inability to walk because of her swelling. This morning she states she feels somewhat better but still feels very weak and cannot walk on her legs because they hurt. Hospital Course Hospital Course: Ms. Bosch is a 59-year-old female who [facility] to [facility] with acute worsening of lower extremity edema over the past month, fatigue, significant electrolyte disturbances. She developed septic shock necessitating vasopressors within the first 24 hours of admission. Gradually improved with aggressive therapy for volume overload and antibiotics for sepsis. Has shown good response to diuresis during hospitalization with regular repletion of her electrolytes. At this time she is hemodynamically stable and on stable regimen to continue to address her volume overload. Meeting criteria for discharge to residential for further rehab and medical management. Patient examined on day of discharge. Denies chest pain, shortness of breath, nausea or vomiting. Still has some loose stools with protein though tolerating improved p.o. intake. Ambulating to bathroom and voiding independently. Remains afebrile. Medically stable for discharge. Problems during hospitalization addressed as follows: Volume overload -Echocardiogram with decreased EF from 8 months ago. -Diuresed aggressively during hospitalization with -1 to 2 L daily. Still quite edematous however given nutritional deficiency, hypoalbuminemia, anticipate gradual improvement in edema over the coming weeks with continued use of diuretic and protein supplementation. -Work-up for anasarca looked at heart failure, liver failure, kidney failure, nutritional deficiency as sources. Nephrotic syndrome/kidney failure unlikely she has no protein in her urine and has responded well to diuretics with normal creatinine. Heart failure may be a culprit but is not the sole source at this time given her stable blood pressure. I suspect her worsening EF compared to 8 months ago is actually a result of her volume overload not the sole culprit. -Liver failure unlikely as her enzymes are normal, platelets within normal range, and other markers of hepatic function such as INR are within an acceptable range. -Adrenal insufficiency of low concern given normal cosyntropin stim test and resolution of hypotension after 48 hours of admission without use of stress dose steroids -Do not suspect SIADH as her urine sodium was only a 23. Appropriate for her level of hyponatremia and volume overload. Not indicative of SIADH In regard to hypokalemia, hypomagnesemia, hyponatremia, repleted during admission through dietary and oral supplements Hypoalbuminemia with protein calorie ma
--- NOTE | 2020-09-11 09:36 | HMH.ACPN ---
Internal Medicine - PN: Subj *Date: 09/11/20 *Time: 08:00 Exam Vital signs and Labs for Last 24 Hours: Temp Pulse Resp BP Pulse Ox 98.1 F 120 H 24 121/73 97 09/11/20 08:00 09/11/20 08:00 09/11/20 08:00 09/11/20 08:00 09/11/20 08:00 Laboratory Results - last 24 hr 09/08/20 13:35: Cortisol 15.8 09/08/20 14:05: Cortisol 20.8 09/08/20 14:35: Cortisol 24.0 09/10/20 11:36: POC Glucose 161 H 09/10/20 13:20: Sodium 125 L, Potassium 2.9 L*, Chloride 93 L, Carbon Dioxide 24, Anion Gap 10.9, BUN 32 H, Creatinine 0.70, Estimated Creat Clear 66, Estimated GFR 86, Est GFR ( Amer) 104, Glucose 164 H D, Calcium 7.6 L 09/10/20 16:41: POC Glucose 195 H 09/10/20 20:37: POC Glucose 182 H 09/11/20 05:30: WBC 6.8, RBC 3.87 L, Hgb 10.2 L, Hct 30.1 L, MCV 77.8 L, MCH 26.4 L, MCHC 33.9, RDW 17.5, Plt Count 394, MPV 7.2 L, Neut % (Auto) 82.6 H, Lymph % (Auto) 5.9 L, [place] % (Auto) 8.4, Eos % (Auto) 1.7, Baso % (Auto) 1.3, Neut # (Auto) 5.6, Lymph # (Auto) 0.4 L, [place] # (Auto) 0.6, Eos # (Auto) 0.1, Baso # (Auto) 0.1 09/11/20 05:30: Sodium 126 L, Potassium 2.8 L*, Chloride 96 L, Carbon Dioxide 26, Anion Gap 6.8, BUN 28 H, Creatinine 0.70, Estimated Creat Clear 66, Estimated GFR 86, Est GFR ( Amer) 104, Glucose 108 H D, Calcium 7.3 L 09/11/20 05:30: Magnesium 1.5 L 09/11/20 05:30: POC Glucose 115 H I & O for Last 24 hours: Intake & Output 09/08/20 09/09/20 09/10/20 09/11/20 23:59 23:59 23:59 23:59 Intake Total 919 / 919 2450 / 2570 2170 / 2170 480 / 480 Output Total 4200 / 4200 3500 / 3500 3750 / 3750 500 / 500 Balance -3281 / -3281 -1050 / -930 -1580 / -1580 -20 / -20 Weight 143.08 kg 143.42 kg 142.031 kg 142.145 kg Microbiology Reports for the Last 24 Hours: Microbiology 09/08/20 10:10 Urine,Clean Catch Urine Culture - Final NO GROWTH AFTER 48 HOURS Assessment and Plan (1) Septic shock Status: Resolved Category: Medical Code(s): A41.9 - Sepsis, unspecified organism; R65.21 - Severe sepsis with septic shock (2) Pyelonephritis Status: Acute Category: Medical Code(s): N12 - Tubulo-interstitial nephritis, not specified as acute or chronic (3) Asthma Status: Acute Category: Medical Code(s): J45.909 - Unspecified asthma, uncomplicated (4) Diarrhea of presumed infectious origin Status: Acute Category: Medical Code(s): R19.7 - Diarrhea, unspecified (5) Acute hyponatremia Status: Acute Category: Medical Code(s): E87.1 - Hypo-osmolality and hyponatremia (6) Anasarca Status: Acute Category: Medical Code(s): R60.1 - Generalized edema (7) Body mass index (BMI) greater than 50 Status: Chronic Category: Medical (8) Diabetes mellitus type 2, insulin dependent Status: Chronic Category: Medical Code(s): E11.9 - Type 2 diabetes mellitus without complications; Z79.4 - director long term care (current) use of insulin (9) Hypothyroidism Status: Acute Category: Medical Code(s): E03.9 - Hypothyroidism, unspecified (10) Hypochloremia Status: Acute Category: Medical Code(s): E87.8 - Other disorders of electrolyte and fluid balance, not elsewhere classified (11) Hyponatremia Status: Acute Category: Medical Code(s): E87.1 - Hypo-osmolality and hyponatremia The patient's infection will respond to the chosen ABx?: Yes (URINE CX SENS TO ROCEPHIN) Is the patient receiving the right drug, dose, and route?: Yes Could a more targeted ABx be ordered?: No
[2020-09-11 11:38] LABS: POC Glucose,Bedside 172 (70-110)
--- NOTE | 2020-09-11 17:37 | HMH.ACPN2 ---
Internal Medicine - PN: Subj *Date: 09/11/20 *Time: 08:30 Interval history: Ms. Bosch did well overnight. She has been getting up and ambulating to the bathroom. Continues to be tachycardic but is normotensive. Stable on room air. Tolerating fair p.o. intake. Continues to have negative volume status daily. No change in daily weight however bed weights I suspect are inaccurate as she is -7 L so far for her hospital admission. Denies chest pain, nausea, vomiting, diarrhea. Afebrile. Exam Vital signs and Labs for Last 24 Hours: Temp Pulse Resp BP Pulse Ox 97.8 F 101 H 19 98/57 L 98 09/11/20 15:33 09/11/20 15:33 09/11/20 15:33 09/11/20 15:33 09/11/20 15:33 Laboratory Results - last 24 hr 09/08/20 13:35: Cortisol 15.8 09/08/20 14:05: Cortisol 20.8 09/08/20 14:35: Cortisol 24.0 09/10/20 20:37: POC Glucose 182 H 09/11/20 05:30: WBC 6.8, RBC 3.87 L, Hgb 10.2 L, Hct 30.1 L, MCV 77.8 L, MCH 26.4 L, MCHC 33.9, RDW 17.5, Plt Count 394, MPV 7.2 L, Neut % (Auto) 82.6 H, Lymph % (Auto) 5.9 L, [place] % (Auto) 8.4, Eos % (Auto) 1.7, Baso % (Auto) 1.3, Neut # (Auto) 5.6, Lymph # (Auto) 0.4 L, [place] # (Auto) 0.6, Eos # (Auto) 0.1, Baso # (Auto) 0.1 09/11/20 05:30: Sodium 126 L, Potassium 2.8 L*, Chloride 96 L, Carbon Dioxide 26, Anion Gap 6.8, BUN 28 H, Creatinine 0.70, Estimated Creat Clear 66, Estimated GFR 86, Est GFR ( Amer) 104, Glucose 108 H D, Calcium 7.3 L 09/11/20 05:30: Magnesium 1.5 L 09/11/20 05:30: POC Glucose 115 H 09/11/20 11:31: POC Glucose 172 H I & O for Last 24 hours: Intake & Output 09/08/20 09/09/20 09/10/20 09/11/20 23:59 23:59 23:59 23:59 Intake Total 919 / 919 2450 / 2570 2170 / 2170 960 / 960 Output Total 4200 / 4200 3500 / 3500 3750 / 3750 500 / 500 Balance -3281 / -3281 -1050 / -930 -1580 / -1580 460 / 460 Weight 143.08 kg 143.42 kg 142.031 kg 315.1 kg Narrative: - Constitutional minimal distress, morbidly obese - *Routine HEENT Exam Head: Present: normocephalic Eye: Present: EOMI, PERRL ENT: Present: mucous membranes moist - *Routine Neck Exam Present: supple. Absent: lymphadenopathy - *Routine Respiratory Exam Present: decreased breath sounds, No crackles or rhonchi or wheezes - *Routine Cardiovascular Exam Present: tachycardia. Absent: murmur - *Routine Abdominal Exam Present: soft, normoactive bowel sounds. Absent: tenderness - *Routine Extremities Exam Present: edema (3+ edema to thighs though improving). Absent: cyanosis, clubbing - *Routine Skin Exam Present: warm. Absent: rash Comments: Anasarca globally - *Routine Neurological Exam Present: alert, oriented X3 Assessment and Plan (1) Septic shock Status: Resolved Category: Medical Code(s): A41.9 - Sepsis, unspecified organism; R65.21 - Severe sepsis with septic shock (2) Pyelonephritis Status: Acute Category: Medical Code(s): N12 - Tubulo-interstitial nephritis, not specified as acute or chronic (3) Asthma Status: Acute Category: Medical Code(s): J45.909 - Unspecified asthma, uncomplicated (4) Diarrhea of presumed infectious origin Status: Acute Category: Medical Code(s): R19.7 - Diarrhea, unspecified (5) Acute hyponatremia Status: Acute Category: Medical Code(s): E87.1 - Hypo-osmolality and hyponatremia (6) Anasarca Status: Acute Category: Medical Code(s): R60.1 - Generalized edema (7) Body mass index (BMI) greater than 50 Status: Chronic Category: Medical (8) Diabetes mellitus type 2, insulin dependent Status: Chronic Category: Medical Code(s): E11.9 - Type 2 diabetes mellitus without complications; Z79.4 - carbon grinder (current) use of insulin (9) Hypothyroidism Status: Acute Category: Medical Code(s): E03.9 - Hypothyroidism, unspecified (10) Hypochloremia Status: Acute Category: Medical Code(s): E87.8 - Other disorders of electrolyte and fluid balance, not elsewhere classified (11) Hyponatremia Status: Acute
[2020-09-11 18:25] LABS: POC Glucose,Bedside 186 (70-110)
[2020-09-11 18:40] LABS: Anion Gap 5.5 mEq/L (5-15); Blood Urea Nitrogen 28 mg/dl (7-17); Calcium 7.7 mg/dl (8.4-10.2); Carbon Dioxide 26 mmol/L (22.0-30.0); Chloride 98 mmol/L (98-107); Creatinine Clearance Estimated 66 mL/min (50-200); Estimated Glomerular Filt Rate 86 ml/min (>60); GFR (African American) 104 ML/MIN (>60); Glucose 173 mg/dl (74-100); Magnesium 1.6 mg/dl (1.6-2.3); Potassium 3.5 mmoL/L (3.5-5.1); Sodium 126 mmol/L (136-145)
[2020-09-11 20:58] LABS: POC Glucose,Bedside 164 (70-110)
[2020-09-12] VITALS: BP 100/57; PULSE 100; PULSE 108; RESP 19; TEMP 36.8; O2SAT 97
--- NOTE | 2020-09-12 03:49 | PC.NURSE ---
No acute changes, pt has been up to [facility] with assist x2 and has used bedpan. Pt requires assist x2 with most activities. Pt states she can't move her legs and when asked to try to help staff with repositioning, pt states she can't. VSS. Pt remains on RA. BS active. Pt has had large soft stool this shift. Medications administered per jun. No other concerns. Will continue to monitor.
[2020-09-12 04:00] VITALS: BP 102/55; PULSE 116; RESP 17; TEMP 36.9; O2SAT 94
[2020-09-12 05:32] VITALS: BMI 58.3
[2020-09-12 05:59] LABS: POC Glucose,Bedside 129 (70-110)
[2020-09-12 06:47] LABS: Basophils % 0.7 % (0.1-2.0); Eosinophils # 0.1 K/mm3 (0.0-0.4); Eosinophils % 1.5 % (0.1-12.0); Hematocrit 30.3 % (37.0-47.0); Hemoglobin 10.4 g/dL (12.2-16.2); Lymphocytes # 0.5 K/mm3 (0.7-4.5); Mean Corpuscular HGB Conc 34.3 g/dL (31.8-35.4); Mean Corpuscular Hemoglobin 27.5 pg (27.0-31.2); Mean Corpuscular Volume 80.2 fl (81-99); Mean Platelet Volume 7.3 fl (7.4-10.4); Monocytes # 0.3 K/mm3 (0.1-1.0); Monocytes % 4.4 % (1.7-9.3); Neutrophils # 5.4 K/mm3 (1.8-7.8); Neutrophils % 85.5 % (37.0-80.0); Platelet Count 359 K/mm3 (142-424); Red Blood Count 3.77 M/mm3 (4.20-5.40); Red Cell Distribution Width 17.8 % (11.5-17.5); White Blood Count 6.4 K/mm3 (4.8-10.8)
[2020-09-12 07:06] LABS: MANUAL DIFFERENTIAL MANUAL DIFFERENTIAL (MANUAL DIFF)
[2020-09-12 07:18] LABS: Alanine Aminotransferase 24 U/L (12-78); Albumin Level 1.9 g/dl (3.5-5.0); Albumin/Globulin Ratio 0.8 (1.1-1.8); Alkaline Phosphatase 91 U/L (38-126); Anion Gap 6.8 mEq/L (5-15); Aspartate Amino Transferase 52 U/L (14-36); Bilirubin,Total 0.6 mg/dl (0.2-1.3); Blood Urea Nitrogen 25 mg/dl (7-17); Calcium 7.7 mg/dl (8.4-10.2); Carbon Dioxide 27 mmol/L (22.0-30.0); Chloride 98 mmol/L (98-107); Creatinine Clearance Estimated 66 mL/min (50-200); Estimated Glomerular Filt Rate 86 ml/min (>60); GFR (African American) 104 ML/MIN (>60); Globulin 2.5 g/dL (1.3-3.2); Glucose 124 mg/dl (74-100); Magnesium 1.8 mg/dl (1.6-2.3); Potassium 3.8 mmoL/L (3.5-5.1); Sodium 128 mmol/L (136-145); Total Protein,Serum 4.4 g/dl (6.3-8.2)
[2020-09-12 08:00] VITALS: BP 112/65; PULSE 118; PULSE 140; RESP 24; TEMP 36.4; O2SAT 97
[2020-09-12 08:17] LABS: Eosinophils % 1 % (0-3); Lymphocytes % 3 % (10-50); Monocytes % 1 % (2-9); Neutrophils % 95 % (42-76); Platelet Estimate Normal; RBC Morphology Normal; Total Cells Counted 100
[2020-09-12 20:21] LABS: POC Glucose,Bedside 189 (70-110)
[2020-09-15 13:10] LABS: Vitamin C 0.5 mg/dL (0.4-2.0)
== END 2020-09-12 12:15 | DRG 640 ==
LOC: ER 10:22 → 2ND 12:09
PROVIDERS: Internal Medicine Adolescent Medicine; Admitting Provider Family Medicine; Emergency Provider Emergency Medicine; PCP Internal Medicine Adolescent Medicine; Visit Provider Internal Medicine Adolescent Medicine
DX: E87.1 Hypo-osmolality and hyponatremia (principal); R65.21 Severe sepsis with septic shock; A41.59 Other Gram-negative sepsis; N12 Tubulo-interstitial nephritis, not specified as acute or chronic; Z68.43 Body mass index [BMI] 50.0-59.9, adult; E44.0 Moderate protein-calorie malnutrition; E66.01 Morbid (severe) obesity due to excess calories; Z20.822 Contact with and (suspected) exposure to COVID-19; E11.9 Type 2 diabetes mellitus without complications; E03.9 Hypothyroidism, unspecified; J45.909 Unspecified asthma, uncomplicated; Z79.4 Long term (current) use of insulin; E78.5 Hyperlipidemia, unspecified; G47.33 Obstructive sleep apnea (adult) (pediatric); E87.8 Other disorders of electrolyte and fluid balance, not elsewhere classified; R19.7 Diarrhea, unspecified; Z88.5 Allergy status to narcotic agent; Z88.0 Allergy status to penicillin; E87.6 Hypokalemia; E83.42 Hypomagnesemia; E88.09 Other disorders of plasma-protein metabolism, not elsewhere classified; B96.1 Klebsiella pneumoniae [K. pneumoniae] as the cause of diseases classified elsewhere; E87.70 Fluid overload, unspecified; I11.0 Hypertensive heart disease with heart failure; I50.9 Heart failure, unspecified; Z87.891 Personal history of nicotine dependence; M19.90 Unspecified osteoarthritis, unspecified site; Z91.013 Allergy to seafood; K21.9 Gastro-esophageal reflux disease without esophagitis; D64.9 Anemia, unspecified
CPT/HCPCS: 36569; 36415; 71045; 80048; 80053; 81001; 82180; 82533; 82607; 82962; 83605; 83735; 83880; 84155; 84300; 84484; 84540; 85007; 85025; 87040; 87045; 87081; 87086; 87088; 87186; 87324; 87507; 93005; 93308; 94640; 96365; 96375; 97110; 97116; 97162; 97165; 97530; 97535; 99284; C1751; P9047; U0003

== ENCOUNTER 2020-09-29 11:59 | Emergency (ER) | payer MEDICARE, MEDICAID, SELFPAY ==
[2020-09-29] VITALS (18 sets, daily range): BP systolic 97–167; BP diastolic 68–104; PULSE 112–134; RESP 18–24; TEMP 36.7; O2SAT 94–100; BMI 62.1
--- NOTE | 2020-09-29 12:18 | XR_ITS ---
PROCEDURE: XR CHEST PORTABLE CLINICAL HISTORY: cough COMPARISON: 09/08/2020 FINDINGS: The cardiomediastinal silhouette and pulmonary vascularity are within normal limits. Patchy mild bibasilar areas of atelectasis versus infiltrate. Small calcified granuloma right mid lung again noted. No pleural effusion or pneumothorax. Interval removal of left-sided PICC line catheter. No acute bony abnormalities. IMPRESSION: Patchy mild bibasilar is of atelectasis versus infiltrate. Interval removal of left-sided PICC line catheter. Dictated by: Luis Armando Robles MD 09/29/2020 13:28 Luis Armando Robles MD in [place] 09/29/2020 13:28
[2020-09-29 12:32] LABS: Basophils # 0.1 K/mm3 (0-0.2); Basophils % 0.6 % (0.1-2.0); Eosinophils # 0.1 K/mm3 (0.0-0.4); Eosinophils % 0.8 % (0.1-12.0); Hematocrit 39.8 % (37.0-47.0); Hemoglobin 13.4 g/dL (12.2-16.2); Lymphocytes # 0.5 K/mm3 (0.7-4.5); Mean Corpuscular HGB Conc 33.6 g/dL (31.8-35.4); Mean Corpuscular Hemoglobin 27.6 pg (27.0-31.2); Mean Corpuscular Volume 82.2 fl (81-99); Mean Platelet Volume 7.5 fl (7.4-10.4); Monocytes # 1.2 K/mm3 (0.1-1.0); Monocytes % 10.2 % (1.7-9.3); Neutrophils % 84.4 % (37.0-80.0); Platelet Count 615 K/mm3 (142-424); Red Blood Count 4.85 M/mm3 (4.20-5.40); Red Cell Distribution Width 18.1 % (11.5-17.5); White Blood Count 11.8 K/mm3 (4.8-10.8)
--- NOTE | 2020-09-29 12:37 | HMH.EDGENADL ---
ED Disposition Clinical Impression: Hyponatremia, Anasarca, Acute prerenal azotemia Disposition: Xfer Short-Term Hosp Condition on Discharge: Fair Referrals: Luis Armando Whittaker MD [Primary Care Provider] - - Critical Care Critical Care Time: No Attestation: On 09/29/20, the high probability of a clinically significant, sudden or life threatening deterioration of the following system(s) required my full and direct attention, intervention and personal management. The time I documented below is in addition to time spent performing reported procedures but includes the following listed in this critical care notation. Medical Decision Making - Medical Records Medical records reviewed: Yes: I reviewed the patient's medical records. - [place] Inquiry Pt receiving controlled substance: No Vital Signs: 09/29/20 12:27 09/29/20 13:00 09/29/20 13:30 Temperature 98.1 F Temperature Source Oral Pulse Rate 119 H 127 H Pulse Rate [Right] 112 H Respiratory Rate 20 18 22 Blood Pressure 130/74 148/82 H Blood Pressure [Right Arm] 106/73 L Blood Pressure Mean 92 92 Blood Pressure Mean [Right Arm] 84 02 Sat by Pulse Oximetry 100 98 98 Oxygen Delivery Method Room Air - Lab Data Lab results reviewed: Yes: I reviewed the patient's lab results. Lab Results 09/29/20 12:25: WBC 11.8 H, RBC 4.85, Hgb 13.4, Hct 39.8, MCV 82.2, MCH 27.6, MCHC 33.6, RDW 18.1 H, Plt Count 615 H, MPV 7.5, Neut % (Auto) 84.4 H, Lymph % (Auto) 4.0 L, [place] % (Auto) 10.2 H, Eos % (Auto) 0.8, Baso % (Auto) 0.6, Neut # (Auto) 10.0 H, Lymph # (Auto) 0.5 L, [place] # (Auto) 1.2 H, Eos # (Auto) 0.1, Baso # (Auto) 0.1 09/29/20 12:25: Sodium 122 L, Potassium 4.5, Chloride 92 L, Carbon Dioxide 23, Anion Gap 11.5, BUN 60 H, Creatinine 0.60, Estimated GFR 103, Est GFR ( Amer) 124, Glucose 185 H, Calcium 8.0 L, Troponin I < 0.01, NT-Pro-B Natriuret Pep 225 H 09/29/20 12:25: Total Bilirubin 0.5, Direct Bilirubin 0.4, Conjugated Bilirubin 0.0, Indirect Bilirubin 0.1, Unconjugated Bilirubin 0.1, AST 75 H, ALT 35, Alkaline Phosphatase 309 H, Troponin I < 0.01, Total Protein 4.8 L, Albumin 1.7 L 09/29/20 14:00: SARS-CoV-2 (PCR) Not detected, Influenza A Untype (PCR) Not detected, Influenza Type B (PCR) Not detected Result diagrams: 09/29/20 12:25 09/29/20 12:25 Orders (Tests/Meds): ED MEDICATIONS Discontinued Medications Generic Name Dose Route Start Last Admin Trade Name Freq PRN Reason Stop Dose Admin Furosemide 40 mg 09/29/20 12:20 09/29/20 12:47 Furosemide 40mg/4ml Vial IV 09/29/20 12:21 40 mg ONCE ONE Administration ORDERS Category Date Time Status Troponin I Q3H Lab 09/29/20 15:30 Ordered Troponin I Q3H Lab 09/29/20 18:30 Ordered Troponin I Q3H Lab 09/29/20 21:30 Ordered ECG Request by /Pat Routine Y 09/29/20 12:17 Ordered Medical Decision Narrative: Patient arrives, in no acute distress with anasarca that is worse than normal. She is tachycardic to the 1 teens. On chart review, this is not uncommon for her. Beatty was placed for strict SHAWANDA's and patient was given Lasix with a cardiac work-up to evaluate for acute exacerbation of heart failure versus anasarca secondary to low albumin and will evaluate renal function as well. Labs significant for hyponatremia, acute on chronic with a sodium of 122 and prerenal azotemia with a BUN of 60. Patient has gained 20 pounds since last admission. Spoke with the primary care provider, believes that the patient has had as extensive as a work-up as possible here in this hospital and he would like the patient transferred for higher level of care given that patient has anasarca with recurrent hyponatremia and low albumin. Spoke with [place] hospitalist who accepted admission. General Adult HPI - General Chief complaint: Shortness of Breath/Dyspnea Stated complaint: swelling Time Seen by Provider: 09/29/20 12:37 Limitations: No Limitations - History of Present Illness
[2020-09-29 12:40] LABS: Chloride 92 mmol/L (98-107)
[2020-09-29 12:41] LABS: Potassium 4.5 mmoL/L (3.5-5.1); Sodium 122 mmol/L (136-145)
[2020-09-29 12:43] LABS: Alanine Aminotransferase 35 U/L (12-78); Albumin Level 1.7 g/dl (3.5-5.0); Alkaline Phosphatase 309 U/L (38-126); Aspartate Amino Transferase 75 U/L (14-36); Bilirubin,Direct 0.4 mg/dl (0.0-0.4); Bilirubin,Indirect 0.1 mg/dL (0.0-0.9); Bilirubin,Total 0.5 mg/dl (0.2-1.3); Bilirubin,Unconjugated 0.1 mg/dL (0.0-1.1); Total Protein,Serum 4.8 g/dl (6.3-8.2)
[2020-09-29 12:44] LABS: Anion Gap 11.5 mEq/L (5-15); Blood Urea Nitrogen 60 mg/dl (7-17); Carbon Dioxide 23 mmol/L (22.0-30.0); Estimated Glomerular Filt Rate 103 ml/min (>60); GFR (African American) 124 ML/MIN (>60); Glucose 185 mg/dl (74-100)
[2020-09-29 12:59] LABS: Troponin I < 0.01 ng/ml (0.00-0.034)
[2020-09-29 13:21] LABS: NT Pro Brain Natriuretic Pep. 225 pg/mL (0-125)
--- NOTE | 2020-09-29 13:45 | PC.NURSE ---
Addendum entered by Kelly Spencer, EMT 09/29/20 14:08: Dr De La O Original Note: Dr García speaking with Dr reich
--- NOTE | 2020-09-29 14:02 | PC.NURSE ---
JUAN CARLOS SONG speaking with Dr. Whittaker again at this time
[2020-09-29 14:04] LABS: Coronavirus 19, PCR Not Detected (NotDetected); Influenza A, PCR Not Detected (NotDetected); Influenza B, PCR Not Detected (NotDetected)
--- NOTE | 2020-09-29 14:37 | PC.NURSE ---
Dr De La O speaking with Dr Gunderson at [facility]
--- NOTE | 2020-09-29 16:28 | PC.NURSE ---
warm blanket given to pt pt daughter at explained to pt and daughter we are waiting on a bed assignment at [place]. call light within reach
--- NOTE | 2020-09-29 16:32 | PC.NURSE ---
called [facility] for update spoke with Brooke, she advised they are waiting on discharges that there is a list but not a long waiting list
--- NOTE | 2020-09-29 18:59 | PC.NURSE ---
attempted to call report at [phone]. held for eight minutes. called back at 1848. held for five minutes. called back at [phone] asked for charge. person stated that she was off the floor.
--- NOTE | 2020-09-29 19:22 | PC.NURSE ---
on phone with Dr. Whittaker
--- NOTE | 2020-09-29 20:31 | PC.NURSE ---
pt back from CT
--- NOTE | 2020-09-29 20:36 | PC.NURSE ---
Johnny N[place] calling report to Earline Whalen RN
--- NOTE | 2020-09-29 20:37 | PC.NURSE ---
Johnny N[place] calling report to Earline Whalen RN
--- NOTE | 2020-09-29 20:39 | PC.NURSE ---
Notified [facility] pt is ready for transfer.
--- NOTE | 2020-09-29 20:58 | PC.NURSE ---
[facility] here to transport pt
== END 2020-09-29 21:20 | disposition short-term general hospital (02) ==
PROVIDERS: Emergency Provider Emergency Medicine; PCP Internal Medicine Adolescent Medicine
DX: E87.1 Hypo-osmolality and hyponatremia (principal); R60.1 Generalized edema; N19 Unspecified kidney failure; E11.65 Type 2 diabetes mellitus with hyperglycemia; Z20.822 Contact with and (suspected) exposure to COVID-19; I50.9 Heart failure, unspecified; E66.01 Morbid (severe) obesity due to excess calories; Z68.44 Body mass index [BMI] 60.0-69.9, adult; E03.9 Hypothyroidism, unspecified; I10 Essential (primary) hypertension; E78.5 Hyperlipidemia, unspecified; K21.9 Gastro-esophageal reflux disease without esophagitis; Z87.891 Personal history of nicotine dependence; Z79.899 Other long term (current) drug therapy
CPT/HCPCS: 71045; 80048; 80076; 83880; 84484; 85025; 96374; 99284; U0003

== ENCOUNTER → 2021-04-13 11:40 | Outpatient (CLI) | payer MEDICARE, MEDICAID, SELFPAY ==
[2021-04-13 12:10] LABS: Hemoglobin A1C 6.4 % (4.0-6.0)
== END ==
PROVIDERS: Visit Provider Internal Medicine Adolescent Medicine
DX: E11.9 Type 2 diabetes mellitus without complications (principal); Z79.4 Long term (current) use of insulin
CPT/HCPCS: 83036

== ENCOUNTER → 2021-04-19 15:04 | Outpatient (CLI) | payer MEDICARE, MEDICAID, SELFPAY ==
[2021-04-19 15:24] LABS: Basophils # 0.1 K/mm3 (0-0.2); Basophils % 1.7 % (0.1-2.0); Eosinophils # 0.5 K/mm3 (0.0-0.4); Eosinophils % 6.3 % (0.1-12.0); Hematocrit 36.6 % (37.0-47.0); Hemoglobin 11.6 g/dL (12.2-16.2); Lymphocytes # 1.5 K/mm3 (0.7-4.5); Lymphocytes % 19.8 % (10-50); Mean Corpuscular HGB Conc 31.7 g/dL (31.8-35.4); Mean Corpuscular Hemoglobin 28.5 pg (27.0-31.2); Monocytes # 0.3 K/mm3 (0.1-1.0); Monocytes % 3.6 % (1.7-9.3); Neutrophils # 5.2 K/mm3 (1.8-7.8); Neutrophils % 68.6 % (37.0-80.0); Platelet Count 458 K/mm3 (142-424); Red Blood Count 4.07 M/mm3 (4.20-5.40); Red Cell Distribution Width 15.8 % (11.5-17.5); White Blood Count 7.5 K/mm3 (4.8-10.8)
[2021-04-19 15:32] LABS: Ammonia < 9 umol/L (9-30)
[2021-04-19 15:43] LABS: Alanine Aminotransferase 12 U/L (12-78); Albumin Level 3.4 g/dl (3.5-5.0); Albumin/Globulin Ratio 0.9 (1.1-1.8); Alkaline Phosphatase 98 U/L (38-126); Anion Gap 10.1 mEq/L (5-15); Aspartate Amino Transferase 26 U/L (14-36); Bilirubin,Total 0.4 mg/dl (0.2-1.3); Blood Urea Nitrogen 24 mg/dl (7-17); Calcium 9.3 mg/dl (8.4-10.2); Carbon Dioxide 28 mmol/L (22.0-30.0); Chloride 99 mmol/L (98-107); Estimated Glomerular Filt Rate 86 ml/min (>60); GFR (African American) 104 ML/MIN (>60); Globulin 3.8 g/dL (1.3-3.2); Glucose 199 mg/dl (74-100); Magnesium 1.4 mg/dl (1.6-2.3); Potassium 4.1 mmoL/L (3.5-5.1); Sodium 133 mmol/L (136-145); Total Protein,Serum 7.2 g/dl (6.3-8.2)
[2021-04-19 16:15] LABS: Thyroid Stimulating Hormone 1.17 uIU/mL (0.465-4.68)
== END ==
PROVIDERS: Visit Provider Nurse Practitioner Family
DX: K74.60 Unspecified cirrhosis of liver (principal); E03.9 Hypothyroidism, unspecified
CPT/HCPCS: 36415; 80053; 82140; 83735; 84443; 85025

== ENCOUNTER 2021-06-02 06:41 | Observation (INO) | payer MEDICARE, MEDICAID, SELFPAY ==
[2021-06-02 06:42] VITALS: BP 119/64; PULSE 89; RESP 18; TEMP 36.8; O2SAT 98; BMI 30.5
--- NOTE | 2021-06-02 07:14 | CT_ITS ---
FINAL REPORT CLINICAL HISTORY: left sided abd pain, tenderness, nausea COMPARISON: June 08, 2020 FINDINGS: CT OF THE ABDOMEN AND PELVIS WITH CONTRAST Axial CT images of the abdomen and pelvis were obtained after the administration of intravenous contrast. Coronal reformatted images were also obtained and reviewed.This study was performed with techniques to keep radiation doses as low as reasonably achievable (ALARA). Individualized dose reduction techniques using automated exposure control or adjustment of mA and/or kV according to the patient's size were employed. Abdomen: The lung bases are clear. The heart is normal in size. The liver has an unremarkable appearance. There has been cholecystectomy. There is mild biliary ductal dilatation is worse as compared to prior of uncertain significance. The spleen is unremarkable. There is mild adrenal gland enlargement likely representing hyperplasia. The pancreas has an unremarkable appearance. There are 2 left renal cysts measuring up to 2.3 cm. There is a small cyst in the lower pole the right kidney. The aorta is normal in caliber. There is no free fluid or adenopathy. There is persistent diffuse stranding in the subcutaneous tissues that may represent mild scarring or edema. Pelvis: The appendix is not well-visualized. The urinary bladder is unremarkable. No inflammatory process is seen. There is no evidence of mass or adenopathy. There is no evidence of bowel obstruction. There has been hysterectomy. IMPRESSION: Mild, worsening biliary ductal dilatation of uncertain significance. This could represent post cholecystectomy change. If indicated, MRCP may be helpful. Bilateral renal cysts. Persistent diffuse stranding in the subcutaneous tissues may represent mild scarring or edema. Reviewed, Interpreted and Dictated by Young Bains III, MD Transcribed by Curt Curran Authenticated by Young Bains III, MD on 06/02/2021 09:05:11 AM [facility]
[2021-06-02 07:25] LABS: Basophils # 0.1 K/mm3 (0-0.2); Basophils % 0.8 % (0.1-2.0); Eosinophils # 0.5 K/mm3 (0.0-0.4); Eosinophils % 6.7 % (0.1-12.0); Hematocrit 36.9 % (37.0-47.0); Hemoglobin 11.7 g/dL (12.2-16.2); Lymphocytes # 2.8 K/mm3 (0.7-4.5); Lymphocytes % 35.8 % (10-50); Mean Corpuscular HGB Conc 31.7 g/dL (31.8-35.4); Mean Corpuscular Hemoglobin 27.9 pg (27.0-31.2); Mean Platelet Volume 7.7 fl (7.4-10.4); Monocytes # 0.5 K/mm3 (0.1-1.0); Monocytes % 6.3 % (1.7-9.3); Neutrophils # 3.9 K/mm3 (1.8-7.8); Neutrophils % 50.3 % (37.0-80.0); Platelet Count 336 K/mm3 (142-424); Red Cell Distribution Width 15.7 % (11.5-17.5); White Blood Count 7.8 K/mm3 (4.8-10.8)
[2021-06-02 07:28] LABS: Chloride 98 mmol/L (98-107); Potassium 4.3 mmoL/L (3.5-5.1); Sodium 132 mmol/L (136-145)
[2021-06-02 07:30] LABS: Amylase 186 U/L (30-110)
[2021-06-02 07:31] LABS: Alanine Aminotransferase 19 U/L (12-78); Alkaline Phosphatase 83 U/L (38-126); Anion Gap 7.3 mEq/L (5-15); Aspartate Amino Transferase 30 U/L (14-36); Bilirubin,Total 0.4 mg/dl (0.2-1.3); Blood Urea Nitrogen 34 mg/dl (7-17); Calcium 8.8 mg/dl (8.4-10.2); Carbon Dioxide 31 mmol/L (22.0-30.0); Creatinine Clearance Estimated 91 mL/min (50-200); Estimated Glomerular Filt Rate 73 ml/min (>60); GFR (African American) 89 ML/MIN (>60); Glucose 154 mg/dl (74-100)
[2021-06-02 07:32] LABS: Albumin Level 3.7 g/dl (3.5-5.0); Albumin/Globulin Ratio 0.9 (1.1-1.8); Total Protein,Serum 7.7 g/dl (6.3-8.2)
[2021-06-02 07:36] LABS: Lipase 786 U/L (23-300)
--- NOTE | 2021-06-02 07:36 | PC.NURSE ---
Critical Lipase of 786 called to Johnny Oreilly.
[2021-06-02 07:42] LABS: NT Pro Brain Natriuretic Pep. 121 pg/mL (0-125)
--- NOTE | 2021-06-02 07:43 | HMH.EDGENADL ---
ED Disposition Clinical Impression: Pancreatitis Disposition: Admitted As Inpatient Condition on Discharge: Good - Critical Care Critical Care Time: No Attestation: On 06/02/21, the high probability of a clinically significant, sudden or life threatening deterioration of the following system(s) required my full and direct attention, intervention and personal management. The time I documented below is in addition to time spent performing reported procedures but includes the following listed in this critical care notation. Medical Decision Making - [place] Inquiry Pt receiving controlled substance: No Vital Signs: 06/02/21 06:42 06/02/21 10:15 06/02/21 10:44 Temperature 98.2 F 98.2 F Temperature Source Oral Oral Pulse Rate 87 Pulse Rate [Right] 89 Respiratory Rate 18 17 Blood Pressure 121/68 Blood Pressure [Right Arm] 119/64 Blood Pressure Mean [Right Arm] 82 02 Sat by Pulse Oximetry 98 95 Oxygen Delivery Method Room Air Room Air Room Air - Lab Data Lab Results 06/02/21 06:51: ESR 115 H 06/02/21 06:51: C-Reactive Protein 1.0, Amylase 186 H, Procalcitonin 0.119 06/02/21 06:51: WBC 7.8, RBC 4.20, Hgb 11.7 L, Hct 36.9 L, MCV 88.0, MCH 27.9, MCHC 31.7 L, RDW 15.7, Plt Count 336, MPV 7.7, Neut % (Auto) 50.3, Lymph % (Auto) 35.8, [place] % (Auto) 6.3, Eos % (Auto) 6.7, Baso % (Auto) 0.8, Neut # (Auto) 3.9, Lymph # (Auto) 2.8, [place] # (Auto) 0.5, Eos # (Auto) 0.5 H, Baso # (Auto) 0.1 06/02/21 06:51: Sodium 132 L, Potassium 4.3, Chloride 98, Carbon Dioxide 31 H, Anion Gap 7.3, BUN 34 H, Creatinine 0.80, Estimated Creat Clear 91, Estimated GFR 73, Est GFR ( Amer) 89, Glucose 154 H, Calcium 8.8, Total Bilirubin 0.4, AST 30, ALT 19, Alkaline Phosphatase 83, NT-Pro-B Natriuret Pep 121, Total Protein 7.7, Albumin 3.7, Globulin 4.0 H, Albumin/Globulin Ratio 0.9 L, Lipase 786 H 06/02/21 07:25: Urine Color Yellow, Urine Appearance Clear, Urine pH 6.5, Ur Specific [place] 1.020, Urine Protein Negative, Urine Glucose (UA) Negative, Urine Ketones Negative, Urine Blood Negative, Urine Nitrate Negative, Urine Bilirubin Negative, Urine Urobilinogen 0.2, Ur Leukocyte Esterase Negative, Urine WBC Occasional, Ur Squamous Epith Cells 3-5, Urine Bacteria Trace 06/02/21 09:15: SARS-CoV-2 (PCR) Not detected, Influenza A Untype (PCR) Not detected, Influenza Type B (PCR) Not detected Result diagrams: 06/02/21 06:51 06/02/21 06:51 Orders (Tests/Meds): ED MEDICATIONS Generic Name Dose Route Start Last Admin Trade Name Freq PRN Reason Stop Dose Admin Sodium Chloride 1,000 mls @ 150 mls/hr 06/02/21 18:00 Sod Chlor 0.9% 1000ml Bag IV 07/02/21 17:59 .Q6H40M KENDY Insulin Human Lispro 0 unit 06/02/21 21:00 06/02/21 20:39 Humalog 100 Units/Ml 3ml Vial (Ssi) SQ 07/02/21 20:59 4 unit ACHS KENDY Administration Protocol Ondansetron HCl 4 mg 06/02/21 10:33 Ondansetron 4mg/2ml Vial IV 07/02/21 10:32 Q8HP PRN Nausea Oxycodone HCl 5 mg 06/02/21 10:33 06/02/21 22:11 Oxycodone 5mg Immediate Release Tablet PO 07/02/21 08:05 5 mg Q6HP PRN Administration Severe Pain Discontinued Medications Generic Name Dose Route Start Last Admin Trade Name Freq PRN Reason Stop Dose Admin Famotidine 20 mg 06/02/21 07:16 06/02/21 08:21 Famotidine 20mg/2ml Vial IV 06/02/21 07:17 20 mg ONCE ONE Administration Sodium Chloride 1,000 mls @ 999 mls/hr 06/02/21 07:15 06/02/21 08:21 Sod Chlor 0.9% 1000ml Bag IV 06/02/21 08:15 999 mls/hr .Q1H1M KENDY Administration Iopamidol 75 ml 02/16/22 08:11 06/02/21 08:12 Iopamidol-370 (76%);100ml Bottle IV 06/02/21 08:12 75 ml ONCE ONE Administration Metoclopramide HCl 10 mg 06/02/21 07:16 06/02/21 08:21 Metoclopramide Hcl 10mg/2ml Vial IVP 06/02/21 07:17 10 mg ONCE ONE Administration Ondansetron HCl 4 mg 06/02/21 07:15 06/02/21 08:21 Ondansetron 4mg/2ml Vial IV 06/02/21 07:16 4 mg ONCE ONE Administrati
[2021-06-02 07:59] LABS: Microscopic, Urine URINE MICROSCOPIC (MICROSCOPIC)
[2021-06-02 08:04] LABS: Appearance,Urine CLEAR (Clear); Bilirubin,Urine Negative (Negative); Blood, Urine Negative (Negative); Color,Urine YELLOW (Yellow); Glucose,Urine (UA) Negative (Negative); Ketones,Urine Negative (Negative); Leukocyte Esterase,Urine Negative (Negative); Nitrate,Urine Negative (Negative); PH,Urine 6.5 (5.0-8.5); Protein,Urine Negative (Negative); Urobilinogen,Urine 0.2 EU/dl (0.2)
[2021-06-02 08:08] LABS: Erythrocyte Sedimentation Rate 115 mm/hr (0-30)
[2021-06-02 08:25] LABS: Bacteria,Urine Trace /lpf; WBC,Urine Occasional #/hpf (0-3)
[2021-06-02 08:32] LABS: Procalcitonin 0.119 ng/mL (0.0-2.0)
--- NOTE | 2021-06-02 09:10 | PC.NURSE ---
JUAN CARLOS SONG speaking with Dr. Ram at this time
--- NOTE | 2021-06-02 09:12 | PC.NURSE ---
notified care management of admission, spoke with Nichole
[2021-06-02 09:27] LABS: Coronavirus 19, PCR Not Detected (NotDetected); Influenza A, PCR Not Detected (NotDetected); Influenza B, PCR Not Detected (NotDetected)
[2021-06-02 10:15] VITALS: O2SAT 95
[2021-06-02 10:44] VITALS: BP 121/68; PULSE 87; RESP 17; TEMP 36.8; O2SAT 99
--- NOTE | 2021-06-02 10:47 | P.CONPHA_ITS ---
[facility] Pharmacy VTE Monitoring - Patient Demographics Admission date: 06/02/21 Report Date: 06/02/21 Time: 10:47 Allergies/Adverse Reactions: Patient Allergies hydromorphone [HYDROMORPHONE] Allergy (Mild, Verified 08/10/20 10:09) ITCHING OF FACE/NOSE morphine [MORPHINE] Allergy (Mild, Verified 08/10/20 10:09) SHAKING penicillin G [PENICILLIN G] Allergy (Mild, Verified 08/10/20 10:09) Rash Fish Containing Products Adverse Reaction (Mild, Verified 08/10/20 10:09) Nausea Height: 1.57 m Weight: 75.75 kg - VTE Risk Labs: VTE Related Lab Results Hgb 11.7 g/dL (12.2-16.2) L 06/02/21 06:51 Hct 36.9 % (37.0-47.0) L 06/02/21 06:51 Plt Count 336 K/mm3 (142-424) 06/02/21 06:51 BUN 34 mg/dl (7-17) H 06/02/21 06:51 Creatinine 0.80 mg/dl (0.52-1.04) 06/02/21 06:51 Estimated Creat Clear 91 mL/min (50-200) 06/02/21 06:51 - Prophylaxis VTE Prophylaxis Ordered?: Yes Types of VTE Prophylaxis: TEDS Knee High Location of Applied Device: Bilateral Lower Extremeties
[2021-06-02 10:51] VITALS: BP 106/76; PULSE 70; RESP 18; TEMP 36.8; O2SAT 100; BMI 30.9
--- NOTE | 2021-06-02 13:24 | HMH.PHAINT ---
Home med rec complete. verified via patient, insurance list, and physicians office
[2021-06-02 14:58] VITALS: BP 100/41; PULSE 76; RESP 16; TEMP 37.1; O2SAT 96
[2021-06-02 16:49] LABS: POC Glucose,Bedside 124 (70-110)
--- NOTE | 2021-06-02 17:51 | HMH.HP ---
*Admission Date: 06/02/21 *Chief complaint: Abdominal pain and nausea *History of present illness: Patient is a 60-year-old female presenting to the emergency department with 1 week history of left upper quadrant/left neck pain that occurs at nighttime and is worse food without vomiting or diarrhea. Patient has not had fevers and has epigastric and left upper quadrant tenderness on physical examination, but does not have signs of peritonitis though she states that she is in significant distress, with left CVA tenderness on physical examination. CBC was nonactionable, with low hemoglobin consistent with prior trend value, with CMP nonactionable, with hyponatremia consistent with prior trend values, with elevated lipase and amylase that are new from prior, consistent with pancreatitis is likely etiology of patient's abdominal pain. She received 5 mg p.o. oxycodone in the emergency department as patient states that she took this last evening stating this helped somewhat. Patient also received Reglan, Zofran and famotidine in the emergency department as well as 1 L crystalloid bolus. Patient has been hemodynamically stable. Above note per ER physician. Consulted medicine for admission, we admitted to medicine for pain control, IV fluids and further diagnostic testing and observation. Of note in talking with patient she notes that she is recently restarted some of her glucose medications which include 2-week therapy of bydureon injection therapy. [facility] History I have reviewed the patient's past medical history: Yes Medical History: Reports:: Asthma, Congestive Heart Failure, Depression, Diabetes Mellitus Type 2, Gastroesophageal Reflux Disease(GERD), Hyperlipidemia, Hypertension, Lung Disease, Migraine Denies:: Cancer, Diabetes Mellitus Type 1, Internal Pacemaker, MRSA, Seizures *Have you ever received a pneumonia vaccine?: No *Have you received a flu vaccine this season?: Yes Other Medical History: Reports: Anemia, Arthritis, Blood Transfusion Reaction, Cataracts, Hypothyroidism, Thyroid Disease, Other Laterality Cases: Bilateral: Other Other Surgeries: Yes: Cardiac Catheterization, Cholecystectomy, Colonoscopy, Hysterectomy-Total. No: Pacemaker Amputation: No Fractures: No - *Social History Last grade of school completed: Some college Smoking Status: Former smoker Tobacco Type: cigarettes # Packs/Day (cigarettes): 1 #Yrs smoked (if former smoker): 42 Alcohol Intake: never Alcohol Intake Frequency:: other Substance Use Type: denies use *Occupational Status:: disabled Housing: apartment Household Members: other *Travel in the last 8 weeks: None - Psychiatric History Pschychiatric History:: Reports:: Depression Family Hx:: Cancer, Diabetes, Heart Attack, Stroke Review of Systems - Review of Systems Review of systems:: pertinent systems reviewed and negative unless documented below Meds Home Medications Medication Instructions Recorded Confirmed Type Atorvastatin Calcium [Lipitor 40mg 40 mg PO HS 30 Days #30 tab 09/11/20 06/02/21 Rx Tab] Cetirizine HCl 10 mg PO DAILY 30 Days #30 tab 09/11/20 06/02/21 Rx Insulin Lispro [HumaLOG 100 See Protocol SQ ACHS 09/29/20 06/02/21 History units/mL 3mL vial (SSI)] Aspirin [Aspirin 81mg EC Tab] 81 mg PO DAILY 06/02/21 06/02/21 History Bumetanide 1 mg PO BID 06/02/21 06/02/21 History Diclofenac Sodium [Diclofenac Sod 2 g TOPICAL QID PRN 06/02/21 06/02/21 History 100gm Topical Gel] Exenatide Microspheres [Bydureon 0.85 ml SQ WEEKLY 06/02/21 06/02/21 History Bcise] Famotidine [Acid Controller] 20 mg PO HS 06/02/21 06/02/21 History Gabapentin [Gabapentin 100mg Cap] 200 mg PO HS 06/02/21 06/02/21 History Insulin Aspart Prot/Insuln Asp 40 units SQ BID 06/02/21 06/02/21 History [Novolog Mix 70-30 Vial] Lactulose 30 ml PO DAILY 06/02/21 06/02/21 History Levothyroxine Sodium 88 mcg PO DAILY 06/02/21 06/02/21 History [Levothyroxine 88mcg (0.088mg) Tab] Magnesium Oxide 400 mg
[2021-06-02 20:00] VITALS: BP 135/63; PULSE 84; RESP 16; TEMP 36.7; O2SAT 96
--- NOTE | 2021-06-03 03:52 | PC.NURSE ---
Patient reports she wears 2L NC at home and requested to be placed on 2L at this time.
[2021-06-03 04:00] VITALS: BP 126/64; PULSE 66; RESP 17; TEMP 36.9; O2SAT 94
[2021-06-03 06:00] VITALS: BMI 31.1
[2021-06-03 06:18] LABS: Basophils % 0.6 % (0.1-2.0); Eosinophils # 0.4 K/mm3 (0.0-0.4); Lymphocytes # 1.1 K/mm3 (0.7-4.5); Monocytes # 0.3 K/mm3 (0.1-1.0)
[2021-06-03 06:21] LABS: POC Glucose,Bedside 117 (70-110)
[2021-06-03 06:23] LABS: Chloride 103 mmol/L (98-107); Sodium 132 mmol/L (136-145)
[2021-06-03 06:26] LABS: Alanine Aminotransferase 18 U/L (12-78); Albumin/Globulin Ratio 0.9 (1.1-1.8); Alkaline Phosphatase 76 U/L (38-126); Aspartate Amino Transferase 29 U/L (14-36); Bilirubin,Total 0.5 mg/dl (0.2-1.3); Blood Urea Nitrogen 23 mg/dl (7-17); Carbon Dioxide 26 mmol/L (22.0-30.0); Creatinine Clearance Estimated 92 mL/min (50-200); Estimated Glomerular Filt Rate 73 ml/min (>60); GFR (African American) 89 ML/MIN (>60); Globulin 3.5 g/dL (1.3-3.2); Total Protein,Serum 6.5 g/dl (6.3-8.2)
[2021-06-03 06:27] LABS: Calcium 8.1 mg/dl (8.4-10.2); Glucose 110 mg/dl (74-100)
[2021-06-03 07:42] LABS: Eosinophils % 8.9 % (0.1-12.0); Hematocrit 31.4 % (37.0-47.0); Lymphocytes % 21.8 % (10-50); Mean Corpuscular HGB Conc 32.8 g/dL (31.8-35.4); Mean Corpuscular Hemoglobin 28.5 pg (27.0-31.2); Mean Platelet Volume 7.9 fl (7.4-10.4); Monocytes % 6.5 % (1.7-9.3); Neutrophils # 3.1 K/mm3 (1.8-7.8); Neutrophils % 62.2 % (37.0-80.0); Platelet Count 236 K/mm3 (142-424); Red Blood Count 3.61 M/mm3 (4.20-5.40); Red Cell Distribution Width 15.7 % (11.5-17.5)
[2021-06-03 07:44] LABS: Hemoglobin 10.3 g/dL (12.2-16.2)
--- NOTE | 2021-06-03 08:47 | HMH.DCSUM ---
General - General Admission date:: 06/02/21 Discharge date: 06/03/21 HPI HPI: Patient is a 60-year-old female presenting to the emergency department with 1 week history of left upper quadrant/left neck pain that occurs at nighttime and is worse food without vomiting or diarrhea. Patient has not had fevers and has epigastric and left upper quadrant tenderness on physical examination, but does not have signs of peritonitis though she states that she is in significant distress, with left CVA tenderness on physical examination. CBC was nonactionable, with low hemoglobin consistent with prior trend value, with CMP nonactionable, with hyponatremia consistent with prior trend values, with elevated lipase and amylase that are new from prior, consistent with pancreatitis is likely etiology of patient's abdominal pain. She received 5 mg p.o. oxycodone in the emergency department as patient states that she took this last evening stating this helped somewhat. Patient also received Reglan, Zofran and famotidine in the emergency department as well as 1 L crystalloid bolus. Patient has been hemodynamically stable. Above note per ER physician. Consulted medicine for admission, we admitted to medicine for pain control, IV fluids and further diagnostic testing and observation. Of note in talking with patient she notes that she is recently restarted some of her glucose medications which include 2-week therapy of bydureon injection therapy. Hospital Course Hospital Course: Patient was admitted, Bydureon was held and she was placed on sliding scale insulin. She improved in regards to nausea and was able to eat clear liquids the first day of admission and this morning was transitioned to a low-fat diet. She had ongoing left lower quadrant pain but it was not exacerbated by diet and it was not in the epigastric area and I actually wonder if this is really not pancreatitis pain. Her labs this morning were normalizing, epigastric exam was normal without pain and she had no evidence of periumbilical or flank bruising or retroperitoneal bleeding. She was able to get up and move around the room and do all of her ADLs. Plan will be to discharge her home with strict instructions to follow a low-fat diet. We will hold the GLP-1 medication. She will be given Tylenol 3 for pain for short-term relief from the pancreatitis and will follow in our office on Monday. Of note on discharge of asked her to hold her bumetanide and her lactulose to reduce volume pressure and gut motility issues while she is recovering from the pancreatitis. Objective Vital signs: Temp Pulse Resp BP Pulse Ox 98.4 F 66 17 126/64 94 L 06/03/21 04:00 06/03/21 04:00 06/03/21 04:00 06/03/21 04:00 06/03/21 04:00 no acute distress - *Routine HEENT Exam Head: Present: normocephalic Eye: Present: EOMI, PERRL ENT: Present: mucous membranes moist - *Routine Neck Exam Present: supple - *Routine Respiratory Exam Present: CTA bilaterally - *Routine Cardiovascular Exam Present: RRR - *Routine Abdominal Exam Present: soft, normoactive bowel sounds. Absent: tenderness - *Routine Extremities Exam Absent: cyanosis, clubbing, edema - *Routine Skin Exam Present: warm. Absent: rash - Detailed Eye Exam Eyelids: Bilateral normal inspection Results Labs on day of discharge: Labs from last 24 hours 06/03/21 06/03/21 06/03/21 05:43 05:43 05:25 WBC 5.0 D RBC 3.61 L Hgb 10.3 L D Hct 31.4 L MCV 87.0 MCH 28.5 MCHC 32.8 RDW 15.7 Plt Count 236 D MPV 7.9 Neut % (Auto) 62.2 Lymph % (Auto) 21.8 [place] % (Auto) 6.5 Eos % (Auto) 8.9 Baso % (Auto) 0.6 Neut # (Auto) 3.1 Lymph # (Auto) 1.1 [place] # (Auto) 0.3 Eos # (Auto) 0.4 Baso # (Auto) 0.0 Sodium 132 L Potassium 4.0 Chloride 103 Carbon Dioxide 26 Anion Gap 7.0 BUN 23 H D Creatinine 0.80 Estimated Creat Clear 92 Est
--- NOTE | 2021-06-03 09:11 | HMH.PHAINT ---
Discharge counseling complete. Informed patients of new meds, what they were for, how to take them, and possible side effects. Also informed patient on medications they need to stop. Pt understood and had no questions or concerns
[2021-06-05 01:15] LABS: POC Glucose,Bedside 232 (70-110)
[2021-06-05 01:15] LABS: POC Glucose,Bedside 134 (70-110)
== END 2021-06-03 09:38 | disposition home or self-care (01) ==
LOC: ER 07:26 → 2ND 09:43
PROVIDERS: Emergency Medicine; Admitting Provider Internal Medicine Adolescent Medicine; Emergency Provider Student in an Organized Health Care Education/Training Program; PCP Nurse Practitioner Family; Visit Provider Internal Medicine Adolescent Medicine
DX: K85.30 Drug induced acute pancreatitis without necrosis or infection (principal); E11.9 Type 2 diabetes mellitus without complications; R10.31 Right lower quadrant pain; T38.3X5A Adverse effect of insulin and oral hypoglycemic [antidiabetic] drugs, initial encounter; T50.995A Adverse effect of other drugs, medicaments and biological substances, initial encounter; Z79.4 Long term (current) use of insulin; Z79.899 Other long term (current) drug therapy; Z20.822 Contact with and (suspected) exposure to COVID-19; R06.9 Unspecified abnormalities of breathing
CPT/HCPCS: G0378; 74177; 80053; 81001; 82150; 82962; 83690; 83880; 84145; 85025; 85651; 86140; 96365; 96375; 99284; C9803; J2405; Q9967; U0003; U0005

== ENCOUNTER 2021-06-26 14:23 | Emergency (ER) | payer MEDICARE, MEDICAID, SELFPAY ==
[2021-06-26 14:24] VITALS: BP 136/79; PULSE 87; RESP 16; TEMP 36.7; O2SAT 99; BMI 28.3
--- NOTE | 2021-06-26 14:46 | HMH.EDGENADL ---
ED Disposition Clinical Impression: Diastasis recti Ventral hernia Qualifiers: Obstruction and gangrene presence: without obstruction or gangrene Qualified Code(s): K43.9 - Ventral hernia without obstruction or gangrene Abdominal pain Qualifiers: Abdominal location: epigastric Qualified Code(s): R10.13 - Epigastric pain Disposition: Home, Self-Care Condition on Discharge: Fair Instructions: DI for Acute Abdominal Pain, DI for Ventral Hernia Additional Instructions: Follow-up with Dr. Angel in the office. Call Monday to make appointment. Continue oxycodone as needed for pain. Return to the emergency department if worsening pain or repetitive vomiting. Prescriptions: Oxycodone HCl [Oxycodone 5mg tab (IR)] 5 mg PO Q6HP PRN #10 tablet PRN Reason: Moderate To Severe Pain Transmission Status: Sent to [id number] Referrals: Wendy Payne APRN [Primary Care Provider] - - Critical Care Critical Care Time: No Attestation: On , the high probability of a clinically significant, sudden or life threatening deterioration of the following system(s) required my full and direct attention, intervention and personal management. The time I documented below is in addition to time spent performing reported procedures but includes the following listed in this critical care notation. Medical Decision Making - [place] Inquiry Pt receiving controlled substance: Yes [place] was queried for this patient: Yes Risks and benefits of using a controlled substance: were discussed with pt by me Vital Signs: 06/26/21 14:24 Temperature 98.1 F Temperature Source Oral Pulse Rate [Right Radial] 87 Respiratory Rate 16 Blood Pressure [Right Arm] 136/79 Blood Pressure Mean [Right Arm] 98 Blood Pressure Source [Right Arm] Automatic Cuff Blood Pressure Position [Right Arm] Sitting 02 Sat by Pulse Oximetry 99 Oxygen Delivery Method Room Air - Lab Data Lab Results 06/26/21 15:11: WBC 6.5, RBC 4.53, Hgb 12.8, Hct 39.7, MCV 87.6, MCH 28.3, MCHC 32.3, RDW 16.4, Plt Count 314, MPV 9.8, Neut % (Auto) 55.9, Lymph % (Auto) 30.7, [place] % (Auto) 5.1, Eos % (Auto) 5.0, Baso % (Auto) 3.3 H, Neut # (Auto) 3.6, Lymph # (Auto) 2.0, [place] # (Auto) 0.3, Eos # (Auto) 0.3, Baso # (Auto) 0.2 06/26/21 15:11: Sodium 134 L, Potassium 3.9, Chloride 100, Carbon Dioxide 25, Anion Gap 12.9, BUN 16, Creatinine 0.60, Estimated Creat Clear 112, Estimated GFR 102, Est GFR ( Amer) 124, Glucose 160 H, Calcium 8.9, Total Bilirubin 0.4, AST 24, ALT 20, Alkaline Phosphatase 87, Total Protein 7.7, Albumin 4.0, Globulin 3.7 H, Albumin/Globulin Ratio 1.1, Amylase 64, Lipase 74 06/26/21 15:18: Urine Color Yellow, Urine Appearance Clear, Urine pH 5.5, Ur Specific [place] >= 1.030, Urine Protein Negative, Urine Glucose (UA) Negative, Urine Ketones Trace, Urine Blood Negative, Urine Nitrate Negative, Urine Bilirubin Negative, Urine Urobilinogen 0.2, Ur Leukocyte Esterase Negative 06/26/21 15:18: Urine Opiates Screen Positive H, Urine Methadone Screen Negative, Ur Barbituates Screen Negative, Ur Phencyclidine Scrn Negative, Ur Amphetamines Screen Negative, U Benzodiazepines Scrn Negative, Urine Cocaine Screen Negative, U Marijuana (THC) Screen Negative Result diagrams: 06/26/21 15:11 06/26/21 15:11 Orders (Tests/Meds): ED MEDICATIONS Discontinued Medications Generic Name Dose Route Start Last Admin Trade Name Freq PRN Reason Stop Dose Admin Iopamidol 75 ml 06/26/21 15:57 06/26/21 15:58 Iopamidol-370 (76%);100ml Bottle IV 06/26/21 15:58 75 ml ONCE ONE Administration Ondansetron HCl 4 mg 06/26/21 15:01 06/26/21 15:38 Ondansetron 4mg/2ml Vial IV 06/26/21 15:02 4 mg ONCE ONE Administration Oxycodone HCl 5 mg 06/26/21 15:01 06/26/21 15:57 Oxycodone 5mg Immediate Release Tablet PO 06/26/21 15:02 5 mg ONCE ONE Administration Sodium Chloride 10 ml 06/26/21 15:57 06/26/21 15:58 Sodium Chloride 0.9% 10ml Syr (Rad Only
--- NOTE | 2021-06-26 14:54 | CT_ITS ---
PROCEDURE INFORMATION: Exam: CT Abdomen And Pelvis With Contrast Exam date and time: 06/26/2021 2:54 PM Age: 60 years old Clinical indication: Abdominal pain; Epigastric; Patient HX: Previous surgery hysterectomy and gallbladder; Additional info: Epigastric pain TECHNIQUE: Imaging protocol: Computed tomography of the abdomen and pelvis with contrast. Radiation optimization: All CT scans at this facility use at least one of these dose optimization techniques: automated exposure control; mA and/or kV adjustment per patient size (includes targeted exams where dose is matched to clinical indication); or iterative reconstruction. Contrast material: ISOVUE; Contrast volume: 75 ml; Contrast route: IV; COMPARISON: CT ABDOMEN PELVIS W CON 06/02/2021 7:52 AM FINDINGS: Liver: Normal. No mass. Gallbladder and bile ducts: Cholecystectomy. Pancreas: Normal. No ductal dilation. Spleen: Multiple calcified splenic granulomata. Adrenal glands: Normal. No mass. Kidneys and ureters: 2.4 cm simple cyst in the left kidney. Stomach and bowel: Unremarkable. No obstruction. No mucosal thickening. Appendix: No evidence of appendicitis. Intraperitoneal space: Unremarkable. No free air. No significant fluid collection. Vasculature: Unremarkable. No abdominal aortic aneurysm. Lymph nodes: Unremarkable. No enlarged lymph nodes. Urinary bladder: Unremarkable as visualized. Reproductive: Hysterectomy. Bones/joints: Unremarkable. No acute fracture. Soft tissues: Diastasis of the rectus musculature. Small hernia in the lower abdomen with a nondilated segment of small bowel extending through the diastasis into the hernia. IMPRESSION: 1. Rectus muscle diastasis with small hernia containing a short segment of nondilated small bowel. 2. 2.4 cm simple left renal cyst. No follow-up imaging is recommended. COMMENTS: Consistent with the [place] [employer]'s Incidental Findings Committee white paper (J Am Elsa Radiol 2018): Any incidental renal lesion less than 1 cm or classified as too small to characterize, or any incidental cystic renal lesion characterized as simple-appearing, is likely benign. No follow-up imaging is recommended for these lesions per consensus recommendations based on imaging criteria.
[2021-06-26 15:21] LABS: Microscopic, Urine URINE MICROSCOPIC (MICROSCOPIC)
[2021-06-26 15:22] LABS: Basophils # 0.2 K/mm3 (0-0.2); Basophils % 3.3 % (0.1-2.0); Eosinophils # 0.3 K/mm3 (0.0-0.4); Hematocrit 39.7 % (37.0-47.0); Hemoglobin 12.8 g/dL (12.2-16.2); Lymphocytes % 30.7 % (10-50); Mean Corpuscular HGB Conc 32.3 g/dL (31.8-35.4); Mean Corpuscular Hemoglobin 28.3 pg (27.0-31.2); Mean Corpuscular Volume 87.6 fl (81-99); Mean Platelet Volume 9.8 fl (7.4-10.4); Monocytes # 0.3 K/mm3 (0.1-1.0); Monocytes % 5.1 % (1.7-9.3); Neutrophils # 3.6 K/mm3 (1.8-7.8); Neutrophils % 55.9 % (37.0-80.0); Platelet Count 314 K/mm3 (142-424); Red Blood Count 4.53 M/mm3 (4.20-5.40); Red Cell Distribution Width 16.4 % (11.5-17.5); White Blood Count 6.5 K/mm3 (4.8-10.8)
[2021-06-26 15:38] LABS: Appearance,Urine CLEAR (Clear); Blood, Urine Negative (Negative); Color,Urine YELLOW (Yellow); Glucose,Urine (UA) Negative (Negative); Ketones,Urine TRACE (Negative); Leukocyte Esterase,Urine Negative (Negative); Nitrate,Urine Negative (Negative); PH,Urine 5.5 (5.0-8.5); Protein,Urine Negative (Negative); Specific Gravity, Urine >= 1.030 (1.005-1.030); Urobilinogen,Urine 0.2 EU/dl (0.2)
[2021-06-26 15:46] LABS: Chloride 100 mmol/L (98-107); Potassium 3.9 mmoL/L (3.5-5.1); Sodium 134 mmol/L (136-145)
[2021-06-26 15:48] LABS: Amylase 64 U/L (30-110); Blood Urea Nitrogen 16 mg/dl (7-17); Creatinine Clearance Estimated 112 mL/min (50-200); Estimated Glomerular Filt Rate 102 ml/min (>60); GFR (African American) 124 ML/MIN (>60)
[2021-06-26 15:49] LABS: Alanine Aminotransferase 20 U/L (12-78); Albumin/Globulin Ratio 1.1 (1.1-1.8); Alkaline Phosphatase 87 U/L (38-126); Anion Gap 12.9 mEq/L (5-15); Aspartate Amino Transferase 24 U/L (14-36); Bilirubin,Total 0.4 mg/dl (0.2-1.3); Calcium 8.9 mg/dl (8.4-10.2); Carbon Dioxide 25 mmol/L (22.0-30.0); Globulin 3.7 g/dL (1.3-3.2); Glucose 160 mg/dl (74-100); Lipase 74 U/L (23-300); Total Protein,Serum 7.7 g/dl (6.3-8.2)
--- NOTE | 2021-06-26 15:53 | PC.NURSE ---
pt to CT scan
[2021-06-26 15:55] LABS: Amphetamine/Metha Screen,Urine Negative ng/ml (<1000); Benzodiazepines Screen,Urine Negative ng/ml (<200); Bilirubin,Urine Negative (Negative)
[2021-06-26 15:56] LABS: Barbiturates Screen,Urine Negative ng/ml (<200)
[2021-06-26 15:57] LABS: Cannabinoid Screen,Urine Negative ng/ml (<50); Cocaine Screen,Urine Negative ng/ml (<300)
[2021-06-26 15:58] LABS: Methadone Screen,Urine Negative ng/ml (<300)
[2021-06-26 15:59] LABS: Opiate Screen,Urine Positive ng/ml (<300); Phencyclidine Screen,Urine Negative ng/ml (<25)
--- NOTE | 2021-06-26 16:03 | PC.NURSE ---
pt is back from CT scan, hooked back up to vital signs and warm blanket given to patient. nothing else needed at this time.
--- NOTE | 2021-06-26 16:27 | PC.NURSE ---
pt in room with son
--- NOTE | 2021-06-26 16:30 | PC.NURSE ---
checked in on patient, she was sitting in wheelchair playing a game of cards on her phone, I asked if she needed anything, patient stated no, but son asked how much longer patient was going to be here, I reminded them that we are awaiting test results and when they come back, the doctor will be back in to talk to them. They were fine with that, nothing was needed at this time.
--- NOTE | 2021-06-26 16:47 | PC.NURSE ---
at bedside updating pt on CT results
[2021-06-26 16:53] LABS: Bacteria,Urine Trace /lpf; RBC,Urine Occasional #/hpf (0-3); Squamous Epithelial Cell,Urine Occasional #/hpf (0-5)
[2021-06-26 16:54] LABS: Calcium Oxalate Crystals,Urine 3+ /lpf
[2021-06-26 17:18] VITALS: BP 134/79; PULSE 78; RESP 19; TEMP 36.8; O2SAT 97
--- NOTE | 2021-06-26 17:18 | PC.NURSE ---
Took patient IV out and wrapped with Coban at site. Patient assisted to the car with assistance of 1 via wheelchair.
== END 2021-06-26 17:20 | disposition home or self-care (01) ==
PROVIDERS: Emergency Provider Emergency Medicine; PCP Nurse Practitioner Family
DX: K85.90 Acute pancreatitis without necrosis or infection, unspecified (principal); M54.9 Dorsalgia, unspecified; M62.08 Separation of muscle (nontraumatic), other site; I11.0 Hypertensive heart disease with heart failure; I50.9 Heart failure, unspecified; K21.9 Gastro-esophageal reflux disease without esophagitis; E78.5 Hyperlipidemia, unspecified; E11.9 Type 2 diabetes mellitus without complications; G43.909 Migraine, unspecified, not intractable, without status migrainosus; K22.70 Barrett's esophagus without dysplasia; K43.9 Ventral hernia without obstruction or gangrene; G47.33 Obstructive sleep apnea (adult) (pediatric); E66.01 Morbid (severe) obesity due to excess calories; F32.A Depression, unspecified; F17.210 Nicotine dependence, cigarettes, uncomplicated; Z79.4 Long term (current) use of insulin; Z79.82 Long term (current) use of aspirin; Z79.899 Other long term (current) drug therapy; Z88.0 Allergy status to penicillin; Z88.5 Allergy status to narcotic agent; Z88.6 Allergy status to analgesic agent; Z91.013 Allergy to seafood; Z82.49 Family history of ischemic heart disease and other diseases of the circulatory system; Z68.28 Body mass index [BMI] 28.0-28.9, adult; Z80.9 Family history of malignant neoplasm, unspecified; Z83.3 Family history of diabetes mellitus
CPT/HCPCS: 74177; 80053; 80305; 81001; 82150; 83690; 85025; 96374; 99284; J2405; Q9967

== ENCOUNTER 2021-07-08 09:53 | Emergency (ER) | payer MEDICARE, MEDICAID, SELFPAY ==
[2021-07-08 09:54] VITALS: BP 123/82; PULSE 80; RESP 16; TEMP 36.9; O2SAT 98; BMI 25.6
--- NOTE | 2021-07-08 10:05 | HMH.EDGENADL ---
ED Disposition Clinical Impression: UTI (urinary tract infection) Qualifiers: Urinary tract infection type: acute cystitis Hematuria presence: without hematuria Qualified Code(s): N30.00 - Acute cystitis without hematuria Abdominal pain Qualifiers: Abdominal location: right upper quadrant Qualified Code(s): R10.11 - Right upper quadrant pain Disposition: Home, Self-Care Condition on Discharge: Good Additional Instructions: Take antibiotics as directed. Continue all her medications, follow-up with surgery team for an outpatient colonoscopy. Return with new, worsening, concerning symptoms. Prescriptions: Sulfamethoxazole/Trimethoprim [Bactrim DS tablet] 1 each PO BID 7 Days #14 tab [facility] Referrals: Clarence Ram MD [Primary Care Provider] - Young Angel MD [Staff Physician] - - Critical Care Critical Care Time: No Attestation: On , the high probability of a clinically significant, sudden or life threatening deterioration of the following system(s) required my full and direct attention, intervention and personal management. The time I documented below is in addition to time spent performing reported procedures but includes the following listed in this critical care notation. Medical Decision Making - Medical Records Medical records reviewed: Yes: I reviewed the patient's medical records. - [place] Inquiry Pt receiving controlled substance: No Vital Signs: 07/08/21 09:54 07/08/21 12:52 07/08/21 13:00 Temperature 98.4 F Temperature Source Oral Pulse Rate 77 77 Pulse Rate [Radial] 80 Respiratory Rate 16 Blood Pressure 113/81 123/76 Blood Pressure [Right Arm] 123/82 Blood Pressure Mean [Right Arm] 95 02 Sat by Pulse Oximetry 98 93 L 90 L Oxygen Delivery Method Room Air 07/08/21 13:30 Temperature Temperature Source Pulse Rate 73 Pulse Rate [Radial] Respiratory Rate Blood Pressure 121/76 Blood Pressure [Right Arm] Blood Pressure Mean [Right Arm] 02 Sat by Pulse Oximetry 99 Oxygen Delivery Method - Lab Data Lab Results 07/08/21 10:40: WBC 5.8, RBC 4.75, Hgb 14.4, Hct 41.4, MCV 87.1, MCH 30.4, MCHC 34.9, RDW 15.8, Plt Count 331, MPV 8.9, Neut % (Auto) 50.8, Lymph % (Auto) 37.3, [place] % (Auto) 5.5, Eos % (Auto) 5.1, Baso % (Auto) 1.3, Neut # (Auto) 3.0, Lymph # (Auto) 2.2, [place] # (Auto) 0.3, Eos # (Auto) 0.3, Baso # (Auto) 0.1 07/08/21 10:40: Sodium 137, Potassium 3.9, Chloride 105, Carbon Dioxide 22, Anion Gap 13.9, BUN 15, Creatinine 0.50 L, Estimated Creat Clear 121, Estimated GFR 126, Est GFR ( Amer) 153, Glucose 210 H, Calcium 9.2, Total Bilirubin 0.7, AST 23, ALT 18, Alkaline Phosphatase 89, Total Protein 7.4, Albumin 3.8, Globulin 3.6 H, Albumin/Globulin Ratio 1.1 07/08/21 10:40: Lactate 1.5 07/08/21 10:40: Lipase 92 07/08/21 12:29: Urine Color Yellow, Urine Appearance Clear, Urine pH 6.0, Ur Specific [place] 1.010, Urine Protein Negative, Urine Glucose (UA) Negative, Urine Ketones Negative, Urine Blood Negative, Urine Nitrate Positive, Urine Bilirubin Negative, Urine Urobilinogen 0.2, Ur Leukocyte Esterase Negative, Urine WBC 5-10, Ur Squamous Epith Cells 10-20, Urine Bacteria 3+, Urine Sperm Occ Result diagrams: 07/08/21 10:40 07/08/21 10:40 Orders (Tests/Meds): ED MEDICATIONS Discontinued Medications Generic Name Dose Route Start Last Admin Trade Name Freq PRN Reason Stop Dose Admin Diatrizoate Meglum/Diatrizoate Sod 30 ml 07/08/21 11:00 07/08/21 10:48 Diatrizoate [place] 66% & Diatrizoate Na 10% 30ml Udc PO 07/08/21 11:01 30 ml ONCE ONE Administration Hydromorphone HCl 0.5 mg 07/08/21 10:45 07/08/21 10:59 Hydromorphone 2mg/Ml Syringe IV 07/08/21 10:46 0.5 mg ONCE ONE Administration Hydromorphone HCl 0.5 mg 07/08/21 10:59 07/08/21 10:17 Hydromorphone 2mg/Ml Syringe IV 07/08/21 11:00 0.5 mg ONCE ONE Administration Lactated Ringer's 1,000 mls @ 999 mls/hr
--- NOTE | 2021-07-08 10:08 | PC.NURSE ---
ED MD at
--- NOTE | 2021-07-08 10:12 | XR_ITS ---
FINAL REPORT CLINICAL HISTORY: ABD PAIN COMPARISON: September 29, 2020 FINDINGS: The heart size is normal. The mediastinum is normal. There is a calcified granuloma in the right upper lobe. The lungs are otherwise clear. There are no pleural effusions. There is no pneumothorax. There is no osseous abnormality. IMPRESSION: No acute cardiopulmonary process Reviewed, Interpreted and Dictated by Arsh Tim MD Transcribed by Curt Curran Authenticated by Arsh Tim MD on 07/08/2021 11:22:47 AM [facility]
--- NOTE | 2021-07-08 10:14 | CT_ITS ---
FINAL REPORT TECHNIQUE: After the administration of oral and intravenous contrast, axial images were obtained through the abdomen and pelvis by computed tomography. The study was performed with techniques to keep radiation dose as low as reasonably achievable, (ALARA). Individual dose reduction techniques using automated exposure control or adjustment of mA and/or kV according to the patient's size were employed. CLINICAL HISTORY: RUQ/RLQ abd pain, concern for obstruction COMPARISON: June 26, 2021 FINDINGS: Abdomen: The lung bases are clear. The liver is enlarged measuring 21 cm in craniocaudal dimension. There is some minimal intra and extrahepatic biliary ductal dilatation The gallbladder is surgically absent. There are calcified granulomas within the spleen. The pancreas and adrenals appear unremarkable. There is a benign-appearing cyst in the left kidney measuring about 2.4 cm. The aorta is normal in caliber. There is no free fluid or adenopathy. Pelvis: There is a structure in the right lower quadrant which appears to represent the appendix and measures about 8 mm in diameter. There is no surrounding inflammation. The urinary bladder is unremarkable. There is no free fluid or adenopathy. There is abnormal mucosal thickening in the inferior rectum. This mucosal thickening appears to measure up to 2.3 cm and is well seen on axial images 99-107 of series 3. IMPRESSION: Significant mucosal thickening in the inferior rectum. Cannot exclude an underlying rectal mass. Correlate with physical exam and lower endoscopy. Mildly enlarged appendix without surrounding inflammation. In the appropriate clinical setting, early acute appendicitis cannot be excluded. Careful clinical correlation recommended. Follow-up CT in 12-24 hours may be of value. Reviewed, Interpreted and Dictated by Arsh Tim MD Transcribed by Odalys Mclain Authenticated by Arsh Tim MD on 07/08/2021 02:17:06 PM [facility]
--- NOTE | 2021-07-08 10:20 | PC.NURSE ---
rad at BS for portable xray
[2021-07-08 10:54] LABS: Basophils # 0.1 K/mm3 (0-0.2); Basophils % 1.3 % (0.1-2.0); Eosinophils # 0.3 K/mm3 (0.0-0.4); Eosinophils % 5.1 % (0.1-12.0); Hematocrit 41.4 % (37.0-47.0); Hemoglobin 14.4 g/dL (12.2-16.2); Lymphocytes # 2.2 K/mm3 (0.7-4.5); Lymphocytes % 37.3 % (10-50); Mean Corpuscular HGB Conc 34.9 g/dL (31.8-35.4); Mean Corpuscular Hemoglobin 30.4 pg (27.0-31.2); Mean Corpuscular Volume 87.1 fl (81-99); Mean Platelet Volume 8.9 fl (7.4-10.4); Monocytes # 0.3 K/mm3 (0.1-1.0); Monocytes % 5.5 % (1.7-9.3); Neutrophils % 50.8 % (37.0-80.0); Platelet Count 331 K/mm3 (142-424); Red Blood Count 4.75 M/mm3 (4.20-5.40); Red Cell Distribution Width 15.8 % (11.5-17.5); White Blood Count 5.8 K/mm3 (4.8-10.8)
--- NOTE | 2021-07-08 10:56 | PC.NURSE ---
oral contrast finished at this time.
[2021-07-08 11:01] LABS: Chloride 105 mmol/L (98-107)
[2021-07-08 11:02] LABS: Potassium 3.9 mmoL/L (3.5-5.1); Sodium 137 mmol/L (136-145)
[2021-07-08 11:04] LABS: Alanine Aminotransferase 18 U/L (12-78); Alkaline Phosphatase 89 U/L (38-126); Anion Gap 13.9 mEq/L (5-15); Aspartate Amino Transferase 23 U/L (14-36); Bilirubin,Total 0.7 mg/dl (0.2-1.3); Blood Urea Nitrogen 15 mg/dl (7-17); Carbon Dioxide 22 mmol/L (22.0-30.0); Creatinine Clearance Estimated 121 mL/min (50-200); Estimated Glomerular Filt Rate 126 ml/min (>60); GFR (African American) 153 ML/MIN (>60); Lipase 92 U/L (23-300)
[2021-07-08 11:05] LABS: Albumin Level 3.8 g/dl (3.5-5.0); Albumin/Globulin Ratio 1.1 (1.1-1.8); Calcium 9.2 mg/dl (8.4-10.2); Globulin 3.6 g/dL (1.3-3.2); Glucose 210 mg/dl (74-100); Lactic Acid 1.5 mmol/L (0.7-2.1); Total Protein,Serum 7.4 g/dl (6.3-8.2)
--- NOTE | 2021-07-08 12:14 | PC.NURSE ---
Patient ambulatory to restroom with assistance from tech
--- NOTE | 2021-07-08 12:26 | PC.NURSE ---
pt to rad
--- NOTE | 2021-07-08 12:26 | PC.NURSE ---
patient to CT with quality control lab tech by wheelchair
--- NOTE | 2021-07-08 12:29 | PC.NURSE ---
Sent UA to lab
[2021-07-08 12:30] LABS: Microscopic, Urine URINE MICROSCOPIC (MICROSCOPIC)
--- NOTE | 2021-07-08 12:35 | PC.NURSE ---
patient back from CT with watch technician by wheelchair
[2021-07-08 12:40] LABS: Appearance,Urine CLEAR (Clear); Bilirubin,Urine Negative (Negative); Blood, Urine Negative (Negative); Color,Urine YELLOW (Yellow); Glucose,Urine (UA) Negative (Negative); Ketones,Urine Negative (Negative); Leukocyte Esterase,Urine Negative (Negative); Nitrate,Urine POSITIVE (Negative); Protein,Urine Negative (Negative); Urobilinogen,Urine 0.2 EU/dl (0.2)
[2021-07-08 12:52] VITALS: BP 113/81; PULSE 77; O2SAT 93
[2021-07-08 13:00] VITALS: BP 123/76; PULSE 77; O2SAT 90
[2021-07-08 13:16] LABS: Bacteria,Urine 3+ /lpf; Sperm,Urine OCC /lpf
[2021-07-08 13:30] VITALS: BP 121/76; PULSE 73; O2SAT 99
--- NOTE | 2021-07-08 14:06 | PC.NURSE ---
Called Radiology to check on CT report; spoke to Sergio; she is checking into it
--- NOTE | 2021-07-08 14:42 | PC.NURSE ---
Dr Angel to call ER MD back about pt.
--- NOTE | 2021-07-08 14:49 | PC.NURSE ---
ED MD on phone with Dr. Angel updating him on exams and labs; he referred her from his office to ED
[2021-07-08 15:36] VITALS: BP 116/81; PULSE 77; RESP 18; TEMP 36.6; O2SAT 100
== END 2021-07-08 15:36 | disposition home or self-care (01) ==
PROVIDERS: Emergency Provider Emergency Medicine; PCP Internal Medicine Adolescent Medicine
DX: N30.00 Acute cystitis without hematuria (principal); A49.8 Other bacterial infections of unspecified site; D64.9 Anemia, unspecified; I11.0 Hypertensive heart disease with heart failure; I50.9 Heart failure, unspecified; I25.10 Atherosclerotic heart disease of native coronary artery without angina pectoris; I27.20 Pulmonary hypertension, unspecified; K21.9 Gastro-esophageal reflux disease without esophagitis; E78.5 Hyperlipidemia, unspecified; E11.9 Type 2 diabetes mellitus without complications; E03.9 Hypothyroidism, unspecified; K22.70 Barrett's esophagus without dysplasia; G43.909 Migraine, unspecified, not intractable, without status migrainosus; J98.4 Other disorders of lung; E66.01 Morbid (severe) obesity due to excess calories; F32.A Depression, unspecified; Z79.4 Long term (current) use of insulin; Z79.899 Other long term (current) drug therapy; Z79.84 Long term (current) use of oral hypoglycemic drugs; Z88.0 Allergy status to penicillin; Z88.5 Allergy status to narcotic agent; Z88.6 Allergy status to analgesic agent; Z68.25 Body mass index [BMI] 25.0-25.9, adult; Z87.891 Personal history of nicotine dependence; Z82.49 Family history of ischemic heart disease and other diseases of the circulatory system; Z83.3 Family history of diabetes mellitus; Z80.9 Family history of malignant neoplasm, unspecified; Z91.013 Allergy to seafood
CPT/HCPCS: 71045; 74177; 80053; 81001; 83605; 83690; 85025; 87086; 87088; 87186; 96365; 96374; 96375; 96376; 99284; J2405; Q9967

== ENCOUNTER → 2021-07-20 12:02 | Outpatient (CLI) | payer MEDICARE, MEDICAID, SELFPAY ==
[2021-07-20 12:20] LABS: Basophils # 0.1 K/mm3 (0-0.2); Basophils % 1.7 % (0.1-2.0); Eosinophils # 0.3 K/mm3 (0.0-0.4); Eosinophils % 5.3 % (0.1-12.0); Hematocrit 39.5 % (37.0-47.0); Hemoglobin 13.1 g/dL (12.2-16.2); Lymphocytes # 2.1 K/mm3 (0.7-4.5); Lymphocytes % 33.1 % (10-50); Mean Corpuscular HGB Conc 33.2 g/dL (31.8-35.4); Mean Corpuscular Hemoglobin 30.2 pg (27.0-31.2); Mean Corpuscular Volume 91.1 fl (81-99); Monocytes # 0.3 K/mm3 (0.1-1.0); Monocytes % 4.9 % (1.7-9.3); Neutrophils # 3.6 K/mm3 (1.8-7.8); Neutrophils % 55.1 % (37.0-80.0); Platelet Count 358 K/mm3 (142-424); Red Blood Count 4.34 M/mm3 (4.20-5.40); White Blood Count 6.5 K/mm3 (4.8-10.8)
[2021-07-20 12:35] LABS: Chloride 106 mmol/L (98-107); Potassium 5.4 mmoL/L (3.5-5.1); Sodium 138 mmol/L (136-145)
[2021-07-20 12:37] LABS: Amylase 143 U/L (30-110)
[2021-07-20 12:38] LABS: Alanine Aminotransferase 29 U/L (12-78); Albumin Level 3.6 g/dl (3.5-5.0); Albumin/Globulin Ratio 1.2 (1.1-1.8); Alkaline Phosphatase 69 U/L (38-126); Anion Gap 11.4 mEq/L (5-15); Aspartate Amino Transferase 27 U/L (14-36); Bilirubin,Total 0.4 mg/dl (0.2-1.3); Blood Urea Nitrogen 23 mg/dl (7-17); Calcium 8.9 mg/dl (8.4-10.2); Carbon Dioxide 26 mmol/L (22.0-30.0); Estimated Glomerular Filt Rate 126 ml/min (>60); GFR (African American) 153 ML/MIN (>60); Globulin 2.9 g/dL (1.3-3.2); Glucose 235 mg/dl (74-100); Lipase 434 U/L (23-300); Total Protein,Serum 6.5 g/dl (6.3-8.2)
== END ==
PROVIDERS: PCP Nurse Practitioner Family; Visit Provider Nurse Practitioner Family
DX: R10.13 Epigastric pain (principal)
CPT/HCPCS: 36415; 80053; 82150; 83690; 85025

== ENCOUNTER → 2021-08-25 13:31 | Outpatient (CLI) | payer MEDICARE, MEDICAID, SELFPAY | PROVIDERS: Visit Provider Surgery | DX: Z01.812 Encounter for preprocedural laboratory examination (principal); Z11.52 Encounter for screening for COVID-19; Z13.810 Encounter for screening for upper gastrointestinal disorder; Z12.11 Encounter for screening for malignant neoplasm of colon | CPT/HCPCS: C9803; U0003; U0005 ==

== ENCOUNTER 2021-08-27 08:51 | Day surgery (SDC) | payer MEDICARE, MEDICAID, SELFPAY ==
[2021-08-25 13:00] VITALS: BMI 26.5
[2021-08-27 09:10] VITALS: BP 139/84; PULSE 80; RESP 16; TEMP 36.9; O2SAT 100
[2021-08-27 09:18] LABS: POC Glucose,Bedside 141 (70-110)
--- NOTE | 2021-08-27 09:24 | P.PN_ITS ---
[facility] Anesthesia Checklist - Patient Identification Patient Identification: Arm Band - Structural Data Admitted From: Home Planned Operative Procedure/s: EGD/Colonoscopy Consent for Planned Operative Procedure(s) Verified: Yes Verified Documents: Surgical Consent, History and Physical - NPO Status Verified Time NPO: 00:00 - Additional verifications Anesthesia Reactions: No Hx Blood Transfusions: Yes Blood Transfusion Reaction: Yes - Airway Assessment C-Spine Mobility Assessed: Yes (mp2) TMJ Mobility Assessed: Yes Dentition: Poor Dentition - Neurological Assessment Level of Consciousness: Awake, Alert - Anesthesia Plan Anesthesia Risk discussed: Yes Anesthesia Plan: Verified ASA Class: III Anesthesia Type: MAC [facility] History I have reviewed the patient's past medical history: Yes Medical History: Reports:: Asthma, Congestive Heart Failure, Depression, Diabetes Mellitus Type 2, Gastroesophageal Reflux Disease(GERD), Hyperlipidemia, Hypertension, Lung Disease, Migraine Denies:: Cancer, Diabetes Mellitus Type 1, Internal Pacemaker, MRSA, Seizures *Have you ever received a pneumonia vaccine?: Yes *Have you received a flu vaccine this season?: Yes Other Medical History: Reports: Anemia, Arthritis, Blood Transfusion Reaction, Cataracts, Hypothyroidism, Thyroid Disease, Other Anesthesia experience/problems:: nac Laterality Cases: Bilateral: Other Other Surgeries: Yes: Cardiac Catheterization, Cholecystectomy, Colonoscopy, Hysterectomy-Total. No: Pacemaker Amputation: No Fractures: Yes - *Social History Last grade of school completed: Some college Smoking Status: Former smoker Tobacco Type: cigarettes # Packs/Day (cigarettes): 1 #Yrs smoked (if former smoker): 42 Alcohol Intake: never Alcohol Intake Frequency:: other Substance Use Type: denies use *Occupational Status:: unemployed, disabled Housing: house Household Members: other *Travel in the last 8 weeks: None - Psychiatric History Pschychiatric History:: Reports:: Depression Family Hx:: Cancer, Heart Attack
--- NOTE | 2021-08-27 09:53 | HMH.SCOPE ---
- Procedure: Date: 08/27/21 Patient Date of :: 1960 Procedure Performed:: 1. Esophagogastroduodenoscopy with biopsies 2. Total colonoscopy to terminal ileum with biopsies Indications:: Patient presents for EGD and colonoscopy. She is a 60-year-old female with prior history of morbid obesity, diabetes, asthma, hypothyroidism, pancreatitis, oxygen dependent COPD.? She has apparently had approximately 200 pound weight loss over the past year.? She has previously undergone laparoscopic cholecystectomy by Dr. Wells years ago.? She was admitted relatively recently with pancreatitis.? More recently she had presented to the emergency department on 06/26/2021 at which time she was having ongoing epigastric pain.? She also noted some protrusion in her abdomen.? She has apparently undergone evaluation by liver doctor in [place] recently.? Sounds like she has seen gastroenterology.? She describes ongoing stomach pains .? This is diffuse in nature.? She does have some cramping.? It seems to be worse when she eats.? She actually has relief when she has a bowel movement but has to take lactulose, Senokot, and Dulcolax suppositories.? She states that she has been unable to eat much..? When she was seen in the emergency department on 06/26/2021 her work-up included CT scan which revealed findings of rectus diastases with a small hernia containing apparent loop of bowel above the umbilical area without evidence of obstruction.? She was sent for outpatient surgical evaluation. When patient was seen in the office at that time on 06/29/2021 it was noted the patient had a very tiny ventral hernia immediately above her umbilicus. I felt that it was likely not causing the majority of her symptoms. I felt it may be reasonable to consider laparoscopically directed repair. I had her undergo cardiology evaluation and she was deemed an acceptable risk to proceed with surgery. She presented to the office for routine follow-up to discuss possible hernia surgery on 07/08/21. At that time she was doubled over in pain. She states that she has been having severe pain. This was previously more on the left side but seems to be more localized to the right abdomen. Due to the severity of the pain I had the patient go directly to the emergency department for evaluation. Patient was seen and evaluated in the emergency department by ER physician. Work-up was relatively unremarkable other than findings on CT scan of significant mucosal thickening of the inferior rectum. It was felt that underlying rectal mass could not be excluded. She did have mildly enlarged appendix without surrounding inflammation. CT scan did not reveal any findings of bowel obstruction or even mention of ventral hernia. Review of the record reveals that the patient had undergone EGD by Dr. Baca on 08/06/2007 at which time she was found to have findings of possible Menon's esophagus. He performed EGD and colonoscopy on 10/07/2013 and she was found to have a small hiatal hernia and probable short segment of Menon's. She did have biopsies performed of an area of scarring in the sigmoid colon. She underwent follow-up EGD on 10/22/[address] Hawley for Menon's. On 05/23/2016 she underwent EGD and colonoscopy by Dr. Sanford Del Cid and was found to have mild gastritis, small hiatal hernia, and probable short segment Menon's. Colonoscopy revealed a diminutive rectal polyp (pathology unknown). She had been followed by gastroenterology until relatively recently when gastroenterology had no available presence at this facility. Given the findings on CT scan plan for colonoscopy and possible EGD as next step due to findings of abnormal rectal pathology and prior history of Menon's. No mention of hernia on CT scan. Possibly does have tiny supraumbilical hernia but doubtful this is causing significant symptomatology. Her pain has been somewhat improved but she states she isn't eating much because she is af
[2021-08-27 10:45] VITALS: BP 93/58; PULSE 79; RESP 16; TEMP 36.4; O2SAT 98
[2021-08-27 10:55] VITALS: BP 112/73; PULSE 76; RESP 16; TEMP 36.4; O2SAT 99
[2021-08-27 11:05] VITALS: BP 123/69; PULSE 67; RESP 18; TEMP 36.4; O2SAT 100
[2021-08-27 11:10] VITALS: BP 131/78; PULSE 70; RESP 18; TEMP 36.4; O2SAT 100
== END 2021-08-27 11:10 | disposition home or self-care (01) ==
LOC: OUTP 08:52
PROVIDERS: PCP Nurse Practitioner Family; Visit Provider Surgery
PROC: 0DJ08ZZ Inspection of Upper Intestinal Tract, Via Natural or Artificial Opening Endoscopic (ICD-10-PCS; CPT 43235; principal; 2021-08-27 10:30)
DX: K22.9 Disease of esophagus, unspecified; K44.9 Diaphragmatic hernia without obstruction or gangrene; K31.9 Disease of stomach and duodenum, unspecified; K29.80 Duodenitis without bleeding; K63.89 Other specified diseases of intestine; K64.8 Other hemorrhoids; Z87.19 Personal history of other diseases of the digestive system; J45.909 Unspecified asthma, uncomplicated; I50.9 Heart failure, unspecified; F32.A Depression, unspecified; E11.9 Type 2 diabetes mellitus without complications; K21.9 Gastro-esophageal reflux disease without esophagitis; E78.5 Hyperlipidemia, unspecified; I10 Essential (primary) hypertension; G43.909 Migraine, unspecified, not intractable, without status migrainosus; J84.89 Other specified interstitial pulmonary diseases
CPT/HCPCS: 43239; 45380; 82962; 87339; 88305; J2704

== ENCOUNTER 2021-10-17 13:44 | Emergency (ER) | payer MEDICARE, MEDICAID, SELFPAY ==
[2021-10-17 14:11] VITALS: BP 98/53; PULSE 87; RESP 16; TEMP 37.2; O2SAT 95; BMI 27.4
--- NOTE | 2021-10-17 14:13 | HMH.EDUTC ---
[place] Disposition Clinical Impression: UTI (urinary tract infection) Qualifiers: Urinary tract infection type: site unspecified Hematuria presence: with hematuria Qualified Code(s): N39.0 - Urinary tract infection, site not specified Disposition: Home, Self-Care Condition on Discharge: Good Instructions: Urine Culture, DI for Urinary Tract Infection (UTI), Phenazopyridine Additional Instructions: Drink plenty of fluids. Take tylenol or ibuprofen for pain or fever. Take the medications as directed. Follow up with your regular doctor. GO TO THE ER FOR ANY WORSENING SYMPTOMS The pyridium will make your urine turn orange, this is an expected side effect. It will stain your clothes if it comes into contact with them. We will culture the urine. That will tell what bacteria is causing your infection and which antibiotics will treat it best. Sometimes the first antibiotic we prescribe turns out to not work against different bacteria. So, make sure you follow up within 3 days if you are not getting better. Prescriptions: Ciprofloxacin HCl [Cipro 500mg Tab] 500 mg PO BID 7 Days #14 tab Transmission Status: Received by [id number] Phenazopyridine HCl [Pyridium 200mg Tablet] 200 pow PO TID #6 tab Transmission Status: Received by [id number] Referrals: Clarence Ram MD [Primary Care Provider] - Time of Disposition: 14:58 Medical Decision Making - Medical Records Medical records reviewed: No: I reviewed the patient's medical records. - [place] Inquiry Pt receiving controlled substance: No Vital Signs: 10/17/21 14:11 10/17/21 15:07 Temperature 99.0 F 99.0 F Temperature Source Oral Pulse Rate 87 Pulse Rate [Left] 87 Respiratory Rate 16 17 Blood Pressure 98/53 L Blood Pressure [Right Arm] 98/53 L Blood Pressure Mean [Right Arm] 68 02 Sat by Pulse Oximetry 95 - Lab Data Lab results reviewed: Yes: I reviewed the patient's lab results. Lab Results 10/17/21 17:55: Urine Color Dark yellow, Urine Appearance Turbid, Urine pH 5.5, Ur Specific [place] 1.025, Urine Protein Trace, Urine Glucose (UA) Negative, Urine Ketones Negative, Urine Blood Trace, Urine Nitrate Negative, Urine Bilirubin Negative, Urine Urobilinogen 0.2, Ur Leukocyte Esterase Trace Orders (Tests/Meds): ORDERS Category Date Time Status Urine Culture Stat Micro 10/17/21 13:57 Received [place] HPI - General Stated complaint: possible uti Time Seen by Provider: 10/17/21 14:13 - History of Present Illness Provider Complaint: She states that for the past 3 days she has had worsening right sided low back pain, urinary frequency, and dysuria. - Related Data Home Medications Medication Instructions Recorded Confirmed Aspirin [Aspirin 81mg EC Tab] 81 mg PO DAILY 06/02/21 09/14/21 Diclofenac Sodium [Diclofenac Sod 2 g TP QID PRN 06/02/21 09/14/21 100gm Topical Gel] Famotidine [Acid Controller] 20 mg PO HS 06/02/21 09/14/21 Insulin Aspart Prot/Insuln Asp 40 units SQ BID 06/02/21 09/14/21 [Novolog Mix 70-30 Vial] Levothyroxine Sodium 88 mcg PO DAILY 06/02/21 09/14/21 [Levothyroxine 88mcg (0.088mg) Tab] Melatonin 6 mg PO HS 06/02/21 09/14/21 Midodrine HCl 10 mg PO TID 06/02/21 09/14/21 Ondansetron [Zofran 4mg ODT] 4 mg PO Q8H PRN 06/02/21 09/14/21 Potassium Chloride [Micro-K 10mEq 20 meq PO TID 06/02/21 09/14/21 cap] Simethicone [Gas Relief] 80 mg PO QID 06/02/21 09/14/21 Sodium Chloride 1 g PO TID 06/02/21 09/14/21 Spironolactone [Aldactone 25mg 25 mg PO DAILY 06/02/21 09/14/21 Tab] bumetanide 1 mg tablet 1 mg PO BID 07/01/21 09/14/21 lactulose 10 gram/15 mL oral 10 g PO DAILY 07/01/21 09/14/21 solution loratadine 10 mg tablet 10 mg PO DAILY 07/01/21 09/14/21 Multivitamin [One-Daily 1 each PO DAILY 08/25/21 09/14/21 Multi-Vitamin] Sodium, Potassium,Mag Sulfates See Rx Instructions PO .COMPLEX 08/25/21 09/14/21 [Suprep Bowel Prep Kit] Sulfametho
[2021-10-17 15:07] VITALS: BP 98/53; PULSE 87; RESP 17; TEMP 37.2
[2021-10-17 17:58] LABS: Apearance,Urine Turbid (Clear); Color,Urine Dark Yellow (Yellow); Glucose,Urine (UA) Negative (Negative); Ketones,Urine Negative (Negative); PH,Urine 5.5 (5.0-8.5); Protein,Urine Trace (Negative); Specific Gravity, Urine 1.025 (1.005-1.030)
[2021-10-17 17:59] LABS: Bilirubin,Urine Negative (Negative); Blood, Urine Trace (Negative); UTC Leukocyte Esterase,Urine Trace (Negative); UTC Nitrate,Urine Negative (Negative); Urobilinogen,Urine 0.2 EU/dl (0.2)
== END 2021-10-17 15:08 | disposition home or self-care (01) ==
PROVIDERS: Emergency Provider Nurse Practitioner Family; PCP Internal Medicine Adolescent Medicine
DX: N39.0 Urinary tract infection, site not specified (principal)
CPT/HCPCS: 81003; 87086; 87088; 87186; 99212; G0463

== ENCOUNTER → 2022-02-01 14:31 | Outpatient (CLI) | payer MEDICARE, MEDICAID, SELFPAY ==
--- NOTE | 2022-02-01 14:35 | XR_ITS ---
FINAL REPORT CLINICAL HISTORY: foot pain FINDINGS: Left foot Three views were obtained. There is no acute fracture or dislocation. There are mild degenerative changes. A plantar calcaneal spur is identified. Note is made of vascular calcification. IMPRESSION: No acute process. Reviewed, Interpreted and Dictated by Young Bains III, MD Transcribed by Suma Ybarra Authenticated and [facility]
--- NOTE | 2022-02-01 14:35 | XR_ITS ---
FINAL REPORT CLINICAL HISTORY: foot pain FINDINGS: Right foot Three views were obtained. There is no acute fracture or dislocation. There are mild degenerative changes. A plantar calcaneal spur is identified. Note is made of vascular calcification. IMPRESSION: No acute process. Reviewed, Interpreted and Dictated by Young Bains III, MD Transcribed by Suma Ybarra Authenticated and [facility] [place] [place]
== END ==
PROVIDERS: PCP Internal Medicine Adolescent Medicine; Visit Provider Nurse Practitioner Family
DX: M79.672 Pain in left foot (principal); M79.671 Pain in right foot
CPT/HCPCS: 73630

== ENCOUNTER → 2022-02-03 08:58 | Outpatient (CLI) | payer MEDICARE, MEDICAID, SELFPAY ==
--- NOTE | 2022-02-03 09:03 | MM_ITS ---
PROCEDURE INFORMATION: Exam: MG Bilateral Screening 3D Mammography Exam date and time: 02/03/2022 9:37 AM Age: 61 years old Clinical indication: Screening examination TECHNIQUE: Imaging protocol: Bilateral Screening tomosynthesis and 2D mammography including computer-aided detection (CAD) when performed. COMPARISON: 1. MG DMSB DIG MAMM-SCREEN RADHA W/CAD 09/22/2016 8:37 AM 2. MG DMSB DIG MAMM-SCREEN RADHA 02/28/2014 11:00 AM FINDINGS: MAMMOGRAPHY: Breast composition: There are scattered areas of fibroglandular density. Mass: None. Architectural distortion: None. Calcifications: No suspicious calcifications. Asymmetric density: None. Skin thickening: None. Axillary adenopathy: None. IMPRESSION: No mammographic evidence of malignancy. Annual screening is recommended unless otherwise clinically indicated. ASSESSMENT: BI-RADS Category 1: Negative
--- NOTE | 2022-02-03 09:04 | XR_ITS ---
FINAL REPORT TECHNIQUE: Bone densitometry calculations of the lumbar spine and left hip were obtained. CLINICAL HISTORY: .POST MENOPAUSAL FINDINGS: DEXA BONE DENSITY AXIAL SKELETON Using L1-4, the bone mineral density of the spine is 0.841 g/cm2, corresponding to T-score of -1.9. Using the left hip, the bone mineral density of the femoral neck is 0.680 g/cm2, corresponding to a T-score of -2.1. NOTE: T-score: Standard deviation compared with peak bone mass of young adult mean. *Following the recommendations of the International Society of Bone densitometry, classification of hip BMD is based on the lower of two T-scores; total hip or femoral neck. IMPRESSION: Diminished bone mineral density of the lumbar spine and left hip consistent with osteopenia. FRAX 10 year fracture risk is 0.8% for a hip fracture and 12% for a major osteoporotic fracture. Reviewed, Interpreted and Dictated by Young Bains III, MD Transcribed by Odalys Mclain Authenticated and [facility]
== END ==
PROVIDERS: PCP Internal Medicine Adolescent Medicine; Visit Provider Nurse Practitioner Family
DX: Z12.31 Encounter for screening mammogram for malignant neoplasm of breast (principal); Z78.0 Asymptomatic menopausal state
CPT/HCPCS: 77063; 77067; 77080

== ENCOUNTER → 2022-02-21 10:32 | Outpatient (CLI) | payer MEDICARE, MEDICAID, SELFPAY ==
--- NOTE | 2022-02-21 10:38 | US_ITS ---
FINAL REPORT CLINICAL HISTORY: Decreased pedal pulses,RADHA REST PAIN,EX SMOKER,DM FINDINGS: ANKLE-BRACHIAL PRESSURE INDICES Pressure indices are as follows: RIGHT LOWER EXTREMITY: Ankle-brachial pressure index: 1.2 Comments: Normal LEFT LOWER EXTREMITY: Ankle-brachial pressure index: 1.3 Comments: Normal CONCLUSION: No evidence of significant obstructive peripheral vascular disease of the lower extremities Reviewed, Interpreted and Dictated by Arsh Tim MD Transcribed by Odalys Mclain Authenticated and [facility]
== END ==
PROVIDERS: PCP Internal Medicine Adolescent Medicine; Visit Provider Podiatrist
DX: R09.89 Other specified symptoms and signs involving the circulatory and respiratory systems (principal)
CPT/HCPCS: 93923

== ENCOUNTER → 2022-03-08 16:58 | Outpatient (CLI) | payer MEDICARE, MEDICAID, SELFPAY ==
[2022-03-08 17:22] LABS: Basophils # 0.1 K/mm3 (0-0.2); Basophils % 1.1 % (0.1-2.0); Eosinophils # 0.3 K/mm3 (0.0-0.4); Eosinophils % 2.8 % (0.1-12.0); Hematocrit 42.4 % (37.0-47.0); Hemoglobin 13.6 g/dL (12.2-16.2); Lymphocytes # 2.2 K/mm3 (0.7-4.5); Lymphocytes % 24.4 % (10-50); Mean Corpuscular Hemoglobin 29.6 pg (27.0-31.2); Mean Corpuscular Volume 92.5 fl (81-99); Mean Platelet Volume 8.3 fl (7.4-10.4); Monocytes # 0.4 K/mm3 (0.1-1.0); Monocytes % 4.3 % (1.7-9.3); Neutrophils # 6.1 K/mm3 (1.8-7.8); Neutrophils % 67.4 % (37.0-80.0); Platelet Count 356 K/mm3 (142-424); Red Blood Count 4.59 M/mm3 (4.20-5.40); Red Cell Distribution Width 13.9 % (11.5-17.5); White Blood Count 9.1 K/mm3 (4.8-10.8)
[2022-03-08 17:56] LABS: Alanine Aminotransferase 20 U/L (12-78); Albumin Level 4.1 g/dl (3.5-5.0); Albumin/Globulin Ratio 1.2 (1.1-1.8); Alkaline Phosphatase 109 U/L (38-126); Amylase 130 U/L (30-110); Anion Gap 15.9 mEq/L (5-15); Aspartate Amino Transferase 27 U/L (14-36); Bilirubin,Total 0.4 mg/dl (0.2-1.3); Blood Urea Nitrogen 32 mg/dl (7-17); Calcium 9.8 mg/dl (8.4-10.2); Carbon Dioxide 30 mmol/L (22.0-30.0); Chloride 100 mmol/L (98-107); Estimated Glomerular Filt Rate 64 ml/min (>60); GFR (African American) 77 ML/MIN (>60); Globulin 3.5 g/dL (1.3-3.2); Glucose 94 mg/dl (74-100); Lipase 172 U/L (23-300); Potassium 4.9 mmoL/L (3.5-5.1); Sodium 141 mmol/L (136-145); Total Protein,Serum 7.6 g/dl (6.3-8.2)
== END ==
PROVIDERS: PCP Internal Medicine Adolescent Medicine; Visit Provider Nurse Practitioner Family
DX: R10.13 Epigastric pain (principal)
CPT/HCPCS: 36415; 80053; 82150; 83690; 85025

== ENCOUNTER → 2022-03-22 09:48 | Outpatient (CLI) | payer MEDICARE, MEDICAID, SELFPAY ==
--- NOTE | 2022-03-22 09:48 | CT_ITS ---
FINAL REPORT CLINICAL HISTORY: abnl yanelis of lower extremities FINDINGS: Thin section axial CT images of the abdomen, pelvis and lower extremities were obtained with contrast. Multiplanar reformatted images were also obtained and reviewed. ABDOMEN AND PELVIS: There is no abdominal aortic aneurysm or dissection. The celiac axis and proximal superior mesenteric artery are unremarkable. There is no renal artery stenosis. The inferior mesenteric artery is patent. There is no significant stenosis of the right common iliac artery or external right iliac artery. There is no significant stenosis of the left common iliac artery or external left iliac artery. The internal iliac arteries are patent. There is mild plaque bilaterally. RIGHT LOWER EXTREMITY: There is no significant stenosis of the right common femoral or superficial femoral arteries. The right deep femoral artery is patent. The right popliteal artery is patent. There is three-vessel runoff to the distal lower leg. LEFT LOWER EXTREMITY: There is no significant stenosis of the left common femoral or superficial femoral arteries. The left deep femoral artery is patent. The left popliteal artery is patent. There is three-vessel runoff to the distal lower leg. OTHER FINDINGS: There is mild bibasilar atelectasis or scarring. A left renal cyst is present. IMPRESSION: No significant vascular disease. Reviewed, Interpreted and Dictated by Young Bains III, MD Transcribed by Curt Curran Authenticated and [facility]
== END ==
PROVIDERS: PCP Internal Medicine Adolescent Medicine; Visit Provider Nurse Practitioner Family
DX: I10 Essential (primary) hypertension (principal); R68.89 Other general symptoms and signs
CPT/HCPCS: 75635; Q9967

== ENCOUNTER → 2022-05-19 12:36 | Outpatient (CLI) | payer MEDICARE, MEDICAID, SELFPAY ==
[2022-05-19 13:08] LABS: Basophils # 0.1 K/mm3 (0-0.2); Basophils % 1.8 % (0.1-2.0); Eosinophils # 0.3 K/mm3 (0.0-0.4); Hematocrit 44.4 % (37.0-47.0); Lymphocytes # 2.1 K/mm3 (0.7-4.5); Lymphocytes % 32.6 % (10-50); Mean Corpuscular HGB Conc 31.5 g/dL (31.8-35.4); Mean Corpuscular Hemoglobin 29.1 pg (27.0-31.2); Mean Corpuscular Volume 92.4 fl (81-99); Mean Platelet Volume 8.1 fl (7.4-10.4); Monocytes # 0.3 K/mm3 (0.1-1.0); Monocytes % 4.2 % (1.7-9.3); Neutrophils # 3.7 K/mm3 (1.8-7.8); Neutrophils % 57.5 % (37.0-80.0); Platelet Count 362 K/mm3 (142-424); Red Blood Count 4.81 M/mm3 (4.20-5.40); Red Cell Distribution Width 13.5 % (11.5-17.5); White Blood Count 6.5 K/mm3 (4.8-10.8)
[2022-05-19 13:36] LABS: Chloride 108 mmol/L (98-107); Hemoglobin A1C 8.5 % (4.0-6.0); Potassium 4.9 mmoL/L (3.5-5.1); Sodium 141 mmol/L (136-145)
[2022-05-19 13:39] LABS: Alanine Aminotransferase 17 U/L (12-78); Albumin Level 3.9 g/dl (3.5-5.0); Albumin/Globulin Ratio 1.3 (1.1-1.8); Alkaline Phosphatase 109 U/L (38-126); Anion Gap 10.9 mEq/L (5-15); Aspartate Amino Transferase 21 U/L (14-36); Bilirubin,Total 0.5 mg/dl (0.2-1.3); Blood Urea Nitrogen 24 mg/dl (7-17); Carbon Dioxide 27 mmol/L (22.0-30.0); Estimated Glomerular Filt Rate 64 ml/min (>60); GFR (African American) 77 ML/MIN (>60); Globulin 3.1 g/dL (1.3-3.2)
[2022-05-19 13:40] LABS: Calcium 9.1 mg/dl (8.4-10.2); Glucose 169 mg/dl (74-100)
[2022-05-19 14:10] LABS: Thyroid Stimulating Hormone 2.88 uIU/mL (0.465-4.68)
== END ==
PROVIDERS: PCP Nurse Practitioner Family; Visit Provider Nurse Practitioner Family
DX: E11.69 Type 2 diabetes mellitus with other specified complication (principal); E03.9 Hypothyroidism, unspecified; Z79.4 Long term (current) use of insulin
CPT/HCPCS: 36415; 80053; 83036; 84443; 85025

== ENCOUNTER 2022-06-08 23:40 | Emergency (ER) | payer MEDICARE, MEDICAID, SELFPAY ==
[2022-06-08 23:42] VITALS: BP 130/88; PULSE 94; RESP 16; TEMP 36.7; O2SAT 99; BMI 36.6
--- NOTE | 2022-06-08 23:57 | HMH.EDGENADL ---
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 Only) Pain Per Pt) potassium chloride 10 MEQ capsule, extended release 20 meq PO TID sodium chloride 1 GM tablet 1 g PO TID melatonin 3 MG tablet 6 mg PO HS aspirin 81 MG tablet,delayed release (DR/EC) 81 mg PO DAILY spironolactone 25 MG tablet 25 mg PO DAILY levothyroxine 88 MCG tablet 88 mcg PO DAILY famotidine 20 MG tablet 20 mg PO HS ondansetron 4 MG tablet,disintegrating 4 mg PO Q8H PRN (Reason: Nausea And Vomiting) simethicone 80 MG tablet,chewable 80 mg PO QID Rx Instructions: Chew one tablet 4 times daily after meals and at bedtime midodrine 10 MG tablet 10 mg PO TID Rx Instructions: Use if systolic BP <90 insulin asp prt-insulin aspart 100 UNIT/ML solution 40 units SQ BID acetaminophen-codeine 1 EACH tablet 1 - 2 tab PO TID PRN (Reason: Moderate To Severe Pain) Qty: 45 0RF atorvastatin 40 MG tablet 40 mg PO HS 30 Days Qty: 30 0RF Referrals Follow up/Referrals: Wendy Payne APRN [Primary Care Provider] - See instructions Activity Restrictions/Add. Instructions Additional Instructions/Restrictions: Return for recurrent low blood pressure readings nausea or any other concerns within 8 hours otherwise follow-up with your primary care physician within the next few days Clinical Impressions Clinical Impression: Nausea Instructions Patient Instructions: DI for Acute Abdominal Pain Discharge ED Provider: Paddy Monreal General Adult HPI General Chief complaint: Abdominal Pain Stated complaint: low bp 84/63, stomach spasms Time Seen by Provider: 06/08/22 23:58 Mode of Arrival: Ambulatory Source of Information: Patient Limitations: No Limitations Description of Symptoms (Recalled from ER Triage Doc. by RN): pt advises her b/p was low earlier this date upon arrival b/p is stable. advises she has been feeling nasueated and having some stomach cramps since this morning around 1030 when she awoke History of Present Illness HPI narrative: 61-year-old female with history of hyperlipidemia diabetes hypertension obesity presents with episode of low blood pressure. She says she has had nausea but no other symptoms. No chest pain shortness of air headache. She has chronic diarrhea. No changes in this. She says that she had her blood pressure checked at home and it was 80/60 and took a midodrine and it improved. She has no other symptoms at this time. No fever no dysuria no cough no shortness of air. Related Data Home Medications Medication Instructions Recorded Confirmed aspirin 81 mg tablet,delayed 81 mg PO DAILY heart health 06/02/21 06/02/22 release diclofenac sodium 3 % topical gel 2 g topical QID PRN (Woodworker Helper Use Only) 06/02/21 06/02/22 Pain Per Pt famotidine 20 mg tablet 20 mg PO HS GERD 06/02/21 06/02/22 insulin aspar prt-insulin aspart 40 units SQ BID Diabetes 06/02/21 06/02/22 100 unit/mL (70-30) subcutaneous soln levothyroxine 88 mcg tablet 88 mcg PO DAILY hypothyroidism 06/02/21 06/02/22 melatonin 3 mg tablet 6 mg PO HS sleep 06/02/21 06/02/22 midodrine 10 mg tablet 10 mg PO TID High blood pressure 06/02/21 06/02/22 ondansetron 4 mg disintegrating 4 mg PO Q8H PRN Nausea And Vomiting 06/02/21 06/02/22 tablet potassium chloride 10 mEq 20 meq PO TID Diet supplement 06/02/21 06/02/22 capsule,extended release simethicone 80 mg chewable tablet 80 mg PO QID gas 06/02/21 06/02/22 sodium chloride 1
--- NOTE | 2022-06-09 00:01 | XR_ITS ---
PROCEDURE INFORMATION: Exam: XR Right Foot Exam date and time: 06/09/2022 12:32 AM Age: 61 years old Clinical indication: Patient HX: States she was walking on treadmill and heard a pop, now C/O pain right foot; Additional info: Right foot injury TECHNIQUE: Imaging protocol: Radiologic exam of the right foot. Views: 3 or more views. COMPARISON: CR XR FOOT WT BEARING RT 3V 02/01/2022 2:37 PM FINDINGS: Bones/joints: No fracture or bone destruction. Heel spur. Soft tissues: Normal. Vasculature: Vascular calcifications. IMPRESSION: 1. No fracture or bone destruction. 2. Vascular calcifications. 3. Heel spur.
[2022-06-09 00:02] LABS: Basophils # 0.2 K/mm3 (0-0.2); Basophils % 2.8 % (0.1-2.0); Eosinophils # 0.3 K/mm3 (0.0-0.4); Eosinophils % 4.3 % (0.1-12.0); Hematocrit 42.5 % (37.0-47.0); Hemoglobin 13.8 g/dL (12.2-16.2); Lymphocytes # 2.7 K/mm3 (0.7-4.5); Lymphocytes % 35.6 % (10-50); Mean Corpuscular HGB Conc 32.4 g/dL (31.8-35.4); Mean Corpuscular Hemoglobin 29.3 pg (27.0-31.2); Mean Corpuscular Volume 90.5 fl (81-99); Mean Platelet Volume 7.9 fl (7.4-10.4); Monocytes # 0.3 K/mm3 (0.1-1.0); Monocytes % 4.5 % (1.7-9.3); Neutrophils # 3.9 K/mm3 (1.8-7.8); Neutrophils % 52.7 % (37.0-80.0); Platelet Count 325 K/mm3 (142-424); White Blood Count 7.5 K/mm3 (4.8-10.8)
--- NOTE | 2022-06-09 00:03 | ECG_ITS ---
APPROVED REPORT Exam: Resting ECG HR:71 bpm ECG Measurements Heart Rate 71 AXES NC 172 P 40 QRSd 92 QRS -30 QT 364 T 20 QTc 387 Conclusion SINUS RHYTHM POSSIBLE LEFT ATRIAL ENLARGEMENT [-0.1mV P-WAVE IN V1/V2] BORDERLINE LEFT AXIS DEVIATION [QRS AXIS < -20] INCOMPLETE RIGHT BUNDLE BRANCH BLOCK [90+ ms QRS DURATION, TERMINAL R IN V1/V2, 40+ ms S IN I/aVL/V4/V5/V6] POSSIBLE LEFT VENTRICULAR HYPERTROPHY [VOLTAGE CRITERIA PLUS LAE OR QRS WIDENING] ABNORMAL ECG UNCONFIRMED REPORT Electronically signed by : Clarence Ram MD 06/09/2022 19:33:59
[2022-06-09 00:08] VITALS: BP 108/71; PULSE 80; RESP 15; O2SAT 96
[2022-06-09 00:20] LABS: Alanine Aminotransferase 18 U/L (12-78); Albumin Level 4.1 g/dl (3.5-5.0); Albumin/Globulin Ratio 1.3 (1.1-1.8); Alkaline Phosphatase 111 U/L (38-126); Anion Gap 7.3 mEq/L (5-15); Aspartate Amino Transferase 29 U/L (14-36); Bilirubin,Total 0.5 mg/dl (0.2-1.3); Blood Urea Nitrogen 30 mg/dl (7-17); Calcium 8.8 mg/dl (8.4-10.2); Carbon Dioxide 28 mmol/L (22.0-30.0); Chloride 107 mmol/L (98-107); Creatinine Clearance Estimated 86 mL/min (50-200); Estimated Glomerular Filt Rate 57 ml/min (>60); GFR (African American) 68 ML/MIN (>60); Globulin 3.2 g/dL (1.3-3.2); Glucose 170 mg/dl (74-100); Potassium 4.3 mmoL/L (3.5-5.1); Sodium 138 mmol/L (136-145); Total Protein,Serum 7.3 g/dl (6.3-8.2)
[2022-06-09 00:30] VITALS: BP 117/78; PULSE 86; RESP 13; O2SAT 95
[2022-06-09 00:35] LABS: Troponin I < 0.01 ng/ml (0.00-0.034)
[2022-06-09 01:09] VITALS: BP 132/80; PULSE 70; RESP 16; TEMP 36.8; O2SAT 98
== END 2022-06-09 01:14 | disposition home or self-care (01) ==
PROVIDERS: Emergency Provider Emergency Medicine; PCP Nurse Practitioner Family
DX: R11.0 Nausea (principal); R10.9 Unspecified abdominal pain; I95.9 Hypotension, unspecified; E78.5 Hyperlipidemia, unspecified; E11.9 Type 2 diabetes mellitus without complications; J45.30 Mild persistent asthma, uncomplicated; Z87.891 Personal history of nicotine dependence; Z80.9 Family history of malignant neoplasm, unspecified; Z83.3 Family history of diabetes mellitus; Z82.3 Family history of stroke; Z82.49 Family history of ischemic heart disease and other diseases of the circulatory system
CPT/HCPCS: 73630; 80053; 84484; 85025; 93005; 99285

== ENCOUNTER → 2022-07-13 12:56 | Outpatient (CLI) | payer MEDICARE, MEDICAID, SELFPAY ==
--- NOTE | 2022-07-13 14:04 | CT_ITS ---
FINAL REPORT TECHNIQUE: Axial CT images of the chest were obtained without contrast. Low-dose protocol was utilized. This study was performed with techniques to keep radiation doses as low as reasonably achievable (ALARA). Individualized dose reduction techniques using automated exposure control or adjustment of mA and/or kV according to the patient's size were employed. CLINICAL HISTORY: lung cancer screening, hx smoker, quit 7 years ago, smoked 1ppd for 42 years COMPARISON: 07/29/2020 FINDINGS: CT CHEST WITHOUT, LOW DOSE SCREENING CT Di Vol: 2.90 mGy DLP: 93.77 mGy*cm There is no axillary, mediastinal, or hilar adenopathy. The heart size is normal. There is no pleural or pericardial effusion. The lung windows show no suspicious mass or nodule. There is granulomatous disease. The lungs are otherwise clear. Limited images of the upper abdomen are unremarkable. IMPRESSION: LR Category 1: 12 month follow-up low-dose chest CT is recommended. Reviewed, Interpreted and Dictated by Alona Aguilar MD Transcribed by Margo Banegas Authenticated and [facility]
== END ==
PROVIDERS: PCP Nurse Practitioner Family; Visit Provider Internal Medicine Pulmonary Disease
DX: R06.09 Other forms of dyspnea; Z87.891 Personal history of nicotine dependence; Z12.2 Encounter for screening for malignant neoplasm of respiratory organs
CPT/HCPCS: 71271; 94060; 94618

== ENCOUNTER → 2023-02-20 12:34 | Outpatient (CLI) | payer MEDICARE, MEDICAID, SELFPAY ==
--- NOTE | 2023-02-20 12:37 | MM_ITS ---
PROCEDURE INFORMATION: Exam: MG Bilateral Screening 3D Mammography Exam date and time: 02/20/2023 1:06 PM Age: 62 years old Clinical indication: Screening mammogram. No personal or family history of breast cancer TECHNIQUE: Imaging protocol: Bilateral Screening tomosynthesis and 2D mammography including computer-aided detection (CAD) when performed. COMPARISON: 1. MG MM DIG SCREENING MAMM BI W/CAD 02/03/2022 9:37 AM 2. MG DMSB DIG MAMM-SCREEN RADHA W/CAD 09/22/2016 8:37 AM 3. MG DMSB DIG MAMM-SCREEN RADHA 02/28/2014 11:00 AM 4. MG DIGMAMMS MAMMOGRAM SCREEN-PLAY THERAPIST N/C 08/19/2005 11:06 AM FINDINGS: MAMMOGRAPHY: Breast composition: There are scattered areas of fibroglandular density. Mass: None. Architectural distortion: No new or suspicious architectural distortion. Calcifications: Stable benign-appearing calcifications are present. No new or suspicious cluster of microcalcifications have developed. Asymmetric density: No new or suspicious asymmetric density is present Skin thickening: None. Axillary adenopathy: None. IMPRESSION: No mammographic evidence of malignancy. Recommend annual screening mammography unless otherwise clinically indicated. ASSESSMENT: BI-RADS category 2: Benign
== END ==
PROVIDERS: PCP Nurse Practitioner Family; Visit Provider Internal Medicine Adolescent Medicine
DX: Z12.31 Encounter for screening mammogram for malignant neoplasm of breast (principal)
CPT/HCPCS: 77063; 77067

== ENCOUNTER 2023-04-25 10:11 | Day surgery (SDC) | payer MEDICARE, MEDICAID, SELFPAY ==
[2023-04-20 17:19] VITALS: BMI 37.1
[2023-04-25] VITALS (7 sets, daily range): BP systolic 116–153; BP diastolic 67–82; PULSE 69–79; RESP 17–19; TEMP 36.1–36.8; O2SAT 96–100
[2023-04-25] MEDS: CYCLOPENTOLATE 2% OPHTH SOLN 2ML BOTTLE OP ×3 (11:05→11:15)
[2023-04-25] MEDS: PHENYLEPHRINE 2.5% OPHTH SOLN 2ML 0.0500000000000000028 ML OP ×3 (11:05→11:15)
[2023-04-25] MEDS: TETRACAINE 0.5% OPTH SOL 15ML OP ×3 (11:05→11:15)
[2023-04-25] MEDS: LACTATED RINGERS 1000ML 1,000 ML 25 ML IV (11:18)
[2023-04-25 11:33] LABS: POC Glucose,Bedside 92 (70-110)
[2023-04-25] MEDS: MIDAZOLAM 2MG/2ML VIAL 1 MG IV (13:09)
[2023-04-25] MEDS: LIDOCAINE 1% PF 2ML AMPULE 2 ML IJ (13:17)
[2023-04-25] MEDS: TRI-MOXI 15MG/1MG/ML 1ML OPHTH VIAL 1 ML OP (13:21)
[2023-04-25] MEDS: TIMOLOL 0.5% OPTH SOLN 5ML OP (13:21)
== END 2023-04-25 13:39 | disposition home or self-care (01) ==
PROVIDERS: PCP Nurse Practitioner Family; Visit Provider Ophthalmology
PROC: (CPT 66984; principal; 2023-04-25 13:00)
DX: E11.36 Type 2 diabetes mellitus with diabetic cataract (principal); H25.9 Unspecified age-related cataract
CPT/HCPCS: 66984; 82962; V2632

== ENCOUNTER 2023-04-28 15:28 | Emergency (ER) | payer MEDICARE, MEDICAID, SELFPAY ==
[2023-04-28 15:40] VITALS: BP 128/62; PULSE 92; RESP 23; TEMP 36.7; O2SAT 93; BMI 36.6
--- NOTE | 2023-04-28 15:42 | EXP.UTC ---
Discharge Plan Disposition Patient Disposition: Home, Self-Care Condition: Good Prescriptions Prescriptions: New prednisone 10 mg tablet 10 mg PO BID 3 Days Qty: 6 0RF azithromycin [Zithromax] 250 mg tablet 250 mg PO UD DOSE PK Qty: 6 0RF Rx Instructions: Take two (2) tablets today, then one (1) tablet days #2 thru #5 benzonatate [benzonatate] 100 mg capsule 100 mg PO TIDP PRN (Reason: Cough) Qty: 30 0RF No Action bumetanide 1 mg tablet 1 mg PO BID gabapentin 100 mg capsule 200 mg PO HS Farxiga 10 mg tablet 10 mg PO DAILY semaglutide 1 mg/dose (2 mg/1.5 mL) pen injector 1 mg SQ WEEKLY QNASL 80 mcg/actuation HFA aerosol inhaler 2 spray intranasal DAILY Qty: 10.6 2RF Rx Instructions: administer into one nostril albuterol sulfate 90 mcg/actuation HFA aerosol inhaler 2 inh inhalation Q6H PRN (Reason: shortness of breath or wheezing) 90 Days Qty: 8.5 2RF fluticasone propion-salmeterol [Advair HFA] 115-21 mcg/actuation HFA aerosol inhaler 2 puff inhalation BID 90 Days Qty: 12 3RF diclofenac sodium 100 GM gel 2 g TP QID PRN (Reason: (End Maker Use Only) Pain Per Pt) potassium chloride 10 MEQ capsule, extended release 20 meq PO TID melatonin 3 MG tablet 6 mg PO HS aspirin 81 MG tablet,delayed release (DR/EC) 81 mg PO DAILY spironolactone 25 MG tablet 25 mg PO DAILY levothyroxine 88 MCG tablet 88 mcg PO DAILY famotidine 20 MG tablet 20 mg PO HS ondansetron 4 MG tablet,disintegrating 4 mg PO Q8H PRN (Reason: Nausea And Vomiting) simethicone 80 MG tablet,chewable 80 mg PO QID Rx Instructions: Chew one tablet 4 times daily after meals and at bedtime midodrine 10 MG tablet 10 mg PO TID Rx Instructions: Use if systolic BP <90 insulin asp prt-insulin aspart 100 UNIT/ML solution 40 units SQ BID acetaminophen-codeine 1 EACH tablet 1 - 2 tab PO TID PRN (Reason: Moderate To Severe Pain) Qty: 45 0RF promethazine 12.5 mg tablet 12.5 mg PO TID PRN (Reason: allergy symptoms) Qty: 15 0RF Rx Instructions: 3 doses during day; last dose no later than 4 hr before bedtime atorvastatin 40 MG tablet 40 mg PO HS 30 Days Qty: 30 0RF Referrals Follow up/Referrals: Wendy Payne APRN [Primary Care Provider] - See instructions Activity Restrictions/Add. Instructions Additional Instructions/Restrictions: Drink plenty of fluids. Take tylenol or ibuprofen for pain or fever. Take the medications as directed. Follow up with your regular doctor. GO TO THE ER FOR ANY WORSENING SYMPTOMS Clinical Impressions Clinical Impression: Sinusitis, Bronchitis Instructions Patient Instructions: Sinusitis, DI for Sinusitis Discharge ED Provider: Luis Armando Victoria [facility] General Stated complaint: sore throat, cough, ORTIZ thelma, Time Seen by Provider: 04/28/23 15:42 History of Present Illness Provider Complaint: She states that for the past 3 days she has had cough, chest congestion, sinus congestion and malaise. Related Data Home Medications Medication Instructions Recorded Confirmed aspirin 81 mg tablet,delayed 81 mg PO DAILY heart health 06/02/21 04/25/23 release diclofenac sodium 3 % topical gel 2 g topical QID PRN (End Maker Use Only) 06/02/21 04/25/23 Pain Per Pt famotidine 20 mg tablet 20 mg PO HS GERD 06/02/21 04/25/23 insulin aspar prt-insulin aspart 40 units SQ BID Diabetes 06/02/21 04/25/23 100 unit/mL (70-30) subcutaneous soln levothyroxine 88 mcg tablet 88 mcg PO DAILY hypothyroidism 06/02/21 04/25/23 melatonin 3 mg tablet 6 mg PO HS sleep 06/02/21 04/25/23 midodrine 10 mg tablet 10 mg PO TID High blood pressure 06/02/21 04/25/23 ondansetron 4 mg disintegrating 4 mg PO Q8H PRN Nausea And Vomiting 06/02/21 04/25/23 tablet potassium chloride 10 mEq 20 meq PO TID Diet supplement 06/02/21 04/25/23 capsule,extended release simethicone 80 mg chewable tablet 80 mg PO QID gas 06/02/21 04/25/23 spironolactone 25 mg tablet 25 mg PO DAILY Fluid 06/02/21 04/25/23 bumetanide 1 mg tablet 1 mg PO BID . 07/01/21 04/25/23 gabapentin 100 mg capsule 200 mg PO HS 03/07/22 04/25/23 dapagliflozin propanediol 10 mg 10 mg PO DAILY 06/02/22 04/25/23 tablet (Farxiga) semaglutide 1 mg/dose (2 mg/1.5 1 mg SQ WEEKLY 02/22/23 04/25/23 mL) subcutaneous pen injector Previous Rx's Medication Instructions Recorded atorvastatin 40 mg tablet 40 mg PO HS Cholesterol 30 days 09/11/20 #30 tabs acetaminophen 300 mg-codeine 30 mg 1 - 2 tab PO TID PRN Moderate To 06/03/21 tablet Severe Pain #45 tabs promethazine 12.5 mg tablet 12.5 mg PO TID PRN allergy 06/09/22 symptoms #15 tabs albuterol sulfate 90 mcg/actuation 2 inh inhalation Q6H PRN shortness 02/14/23 aerosol inhaler of breath or wheezing 90 days #8.5 grams fluticasone propionate 115 2 puff inhalation BID 90 days #12 02/14/23 mcg-salmeterol 21 mcg/actuation grams HFA inhaler (Advair HFA) beclomethasone dipropionate 80 2 spray intranasal DAILY #10.6 02/23/23 mcg/actuation nasal HFA inhaler grams (QNASL) azithromycin 250 mg tablet 250 mg PO UD DOSE PK #6 tabs 04/28/23 (Zithromax) benzonatate 100 mg capsule 100 mg PO TIDP PRN Cough #30 caps 04/28/23 prednisone 10 mg tablet 10 mg PO BID 3 days #6 tabs 04/28/23 Allergies Allergy/AdvReac Type Severity Reaction Status Date / Time morphine [MORPHINE] Allergy Mild SHAKING Verified 04/25/23 11:05 penicillin G [PENICILLIN G] Allergy Mild Rash Verified 04/25/23 11:05 [facility] [place] Disclaimer: The information contained in this section may have been updated after the patient was seen, as this information can be updated by other users. Medical History Abnormal ankle brachial index (LARRY) Allergic rhinitis CHF (congestive heart failure) Chronic cough COPD (chronic obstructive pulmonary disease) Dyspnea on exertion Dyspnea on exertion Hyperlipidemia Mild persistent asthma Screening for lung cancer Stopped smoking with greater than 30 pack year history Surgical History History of cholecystectomy History of colonoscopy History of esophagogastroduodenoscopy (EGD) History of eye surgery History of hand surgery History of hysterectomy Family History Other Cancer Diabetes Heart attack Stroke Social History Smoking Status: Never smoker second hand exposure: No alcohol intake: never substance use type: denies use current occupational status: unemployed and disabled Travel in the last 8 weeks: None household members: other housing: house current occupational exposures/hazards: No caffeine: Yes ROS Obtained: Yes All systems reviewed & no additional complaints except as documented Constitutional Constitutional: Reports chills and Reports fever(s) Eyes Eyes: Denies eye discharge ENT Ears, Nose, Mouth, and Throat: Reports as per HPI Cardiovascular Cardiovascular: Denies chest pain Respiratory Respiratory: Denies chest congestion and Reports cough Gastrointestinal Gastrointestingal: Reports nausea; Denies abdominal pain, constipation, cramping, diarrhea or vomiting Musculoskeletal Musculoskeletal: Denies arthralgias Integumentary/Breasts Skin/Breast: Denies rash Neurologic Neurologic: Denies paresthesias Physical Exam General General appearance: alert and in no apparent distress Eye Eye exam: Present normal appearance, PERRL and EOMI ENT ENT exam: Present mucous membranes moist and normal external ear exam Expanded ENT Exam External ear exam: Present normal external inspection TM/Canal exam: Bilateral TM: erythema and bulging Nose exam: Absent sinus tenderness Nasal speculum exam: Bilateral: normal Mouth exam: Present normal external inspection; Absent drooling Teeth exam: Present normal inspection Throat exam: Present tonsillar erythema and tonsillomegaly Neck Neck exam: Present normal inspection, full ROM and trachea midline; Absent tenderness, lymphadenopathy or thyromegaly Chest Chest inspection: Present normal inspection and symmetric chest wall rise; Absent tenderness or rash Respiratory Respiratory exam: Present normal lung sounds bilaterally; Absent respiratory distress, wheezes, stridor or accessory muscle use Cardiovascular Cardiovascular exam: Present regular rate, normal rhythm and normal heart sounds Abdominal Exam Abdominal exam: Present soft; Absent distention, tenderness, guarding, rebound or rigidity Extremities Exam Extremities exam: Present normal inspection, full ROM and normal capillary refill; Absent tenderness or calf tenderness Back Exam Back exam: Present normal inspection and full ROM; Absent tenderness Neurological Exam Neurological exam: Present alert and oriented X3 Psychiatric Psychiatric exam: Present normal affect and normal mood Skin Skin exam: Present warm, dry, intact and normal color Lymphatic Lymphatic Findings: no adenopathy Medical Decision Making Medical Records Medical records reviewed: No I reviewed the patient's medical records. [place] Inquiry Pt receiving controlled substance: No Lab Data Lab results reviewed: Yes I reviewed the patient's lab results.
[2023-04-28 16:09] VITALS: BP 128/62; PULSE 92; RESP 23; TEMP 36.7; O2SAT 93
== END 2023-04-28 16:14 | disposition home or self-care (01) ==
PROVIDERS: Emergency Provider Nurse Practitioner Family; PCP Nurse Practitioner Family
DX: J20.9 Acute bronchitis, unspecified (principal); J01.90 Acute sinusitis, unspecified; R51.9 Headache, unspecified; R05.9 Cough, unspecified; R07.0 Pain in throat; R09.81 Nasal congestion; R09.89 Other specified symptoms and signs involving the circulatory and respiratory systems; R53.81 Other malaise; I11.0 Hypertensive heart disease with heart failure; I50.9 Heart failure, unspecified; J44.9 Chronic obstructive pulmonary disease, unspecified; E78.5 Hyperlipidemia, unspecified; Z87.891 Personal history of nicotine dependence
CPT/HCPCS: 99212; 99214; G0463

== ENCOUNTER 2023-05-09 09:55 | Day surgery (SDC) | payer MEDICARE, MEDICAID, SELFPAY ==
[2023-05-04 10:45] VITALS: BMI 37.3
[2023-05-09] MEDS: PHENYLEPHRINE 2.5% OPHTH SOLN 2ML 0.0500000000000000028 ML OP ×3 (10:30→10:40)
[2023-05-09] MEDS: CYCLOPENTOLATE 2% OPHTH SOLN 2ML BOTTLE OP ×3 (10:30→10:40)
[2023-05-09] MEDS: TETRACAINE 0.5% OPTH SOL 15ML OP ×3 (10:30→10:40)
[2023-05-09 10:39] VITALS: BP 118/81; PULSE 74; RESP 16; TEMP 36.2; O2SAT 97
[2023-05-09] MEDS: MIDAZOLAM 2MG/2ML VIAL 1 MG IV (11:32)
[2023-05-09 11:37] VITALS: BP 108/61; PULSE 70; RESP 16; O2SAT 92
[2023-05-09] MEDS: TIMOLOL 0.5% OPTH SOLN 5ML OP (11:38)
[2023-05-09] MEDS: LIDOCAINE 1% PF 2ML AMPULE 2 ML IJ (11:39)
[2023-05-09] MEDS: TRI-MOXI 15MG/1MG/ML 1ML OPHTH VIAL 1 ML OP (11:39)
[2023-05-09 11:42] VITALS: BP 105/63; PULSE 67; RESP 17; O2SAT 94
[2023-05-09 11:50] VITALS: BP 124/81; PULSE 72; RESP 16; TEMP 36.6; O2SAT 98
[2023-05-09 11:57] VITALS: BP 124/81; PULSE 72; RESP 16; TEMP 36.6; O2SAT 98
== END 2023-05-09 11:58 | disposition home or self-care (01) ==
PROVIDERS: PCP Internal Medicine Adolescent Medicine; Visit Provider Ophthalmology
PROC: (CPT 66984; principal; 2023-05-09 13:00)
DX: H25.812 Combined forms of age-related cataract, left eye (principal)
CPT/HCPCS: 66984; V2632

== ENCOUNTER 2023-07-17 10:19 | Outpatient (CLI) | payer MEDICARE, MEDICAID, SELFPAY ==
--- NOTE | 2023-07-17 10:20 | CT_ITS ---
FINAL REPORT TECHNIQUE: Thin section axial images were obtained from the lung apices to the upper abdomen by computed tomography. Reformatted images were obtained and reviewed. This study was performed with techniques to keep radiation doses al low as reasonably achievable (ALARA). Individualized dose reduction techniques using automated exposure control or adjustment of mA and/or kV according to the patient's size were employed. CLINICAL HISTORY: lung cancer screening FORMER SMOKER QUIT 7 YEARS AGO, 1PPD X42 YEARS WHEN SMOKING COMPARISON: 07/13/2022 FINDINGS: CHEST CT LOW DOSE 2-year-old female, former smoker who quit 7 years ago, 10-read-fswn history. CTDI vol (mGy): 2.9 DLP (mGy-cm): 101.34 There is no axillary adenopathy. There is no mediastinal or hilar mass or adenopathy. The heart is normal in size, with mild coronary artery calcifications. There is no pericardial or pleural effusion. There is mild emphysema. There is calcified granuloma present in the right upper lobe. Bilateral lower lung field bronchiectasis is present. Lung window images demonstrate no suspicious infiltrate or nodule. Limited images of the upper abdomen reveal a 2.7 cm left renal cyst consistent with the prior abdominal CT of 03/22/2022. IMPRESSION: Lung-RADS category 1. Recommend 12 month follow up low dose chest CT. Reviewed, Interpreted and Dictated by Young Bains III, MD Transcribed by Holly Echavarria Authenticated and [facility]
== END 2023-07-17 23:59 ==
LOC: RAD 10:20
PROVIDERS: PCP Internal Medicine Adolescent Medicine; Visit Provider Internal Medicine Pulmonary Disease
DX: F17.210 Nicotine dependence, cigarettes, uncomplicated (principal)
CPT/HCPCS: 71271

== ENCOUNTER 2023-07-27 08:44 | Outpatient (CLI) | payer MEDICARE, MEDICAID, SELFPAY ==
[2023-07-27 10:33] LABS: Alanine Aminotransferase 19 U/L (12-78); Albumin Level 3.7 g/dl (3.5-5.0); Albumin/Globulin Ratio 1.3 (1.1-1.8); Alkaline Phosphatase 101 U/L (38-126); Anion Gap 11.5 mEq/L (5-15); Aspartate Amino Transferase 27 U/L (14-36); Bilirubin,Total 0.7 mg/dl (0.2-1.3); Blood Urea Nitrogen 24 mg/dl (7-17); Calcium 9.2 mg/dl (8.4-10.2); Carbon Dioxide 27 mmol/L (22.0-30.0); Chloride 102 mmol/L (98-107); Estimated Glomerular Filt Rate 56 ml/min (>60); GFR (African American) 68 ML/MIN (>60); Globulin 2.8 g/dL (1.3-3.2); Glucose 180 mg/dl (74-100); Potassium 4.5 mmoL/L (3.5-5.1); Sodium 136 mmol/L (136-145); Total Protein,Serum 6.5 g/dl (6.3-8.2)
[2023-07-27 15:17] LABS: Iron 84 ug/dL (37-170)
[2023-07-27 15:27] LABS: Total Iron Binding Capacity 294 ug/dL (265-497)
[2023-07-27 15:54] LABS: Ferritin 52.5 ng/ml (11.1-264)
[2023-07-28 11:19] LABS: Basophils # 0.1 K/mm3 (0-0.2); Basophils % 1.5 % (0.1-2.0); Eosinophils # 0.3 K/mm3 (0.0-0.4); Eosinophils % 3.9 % (0.1-12.0); Hematocrit 48.6 % (37.0-47.0); Hemoglobin 14.8 g/dL (12.2-16.2); Lymphocytes % 27.7 % (10-50); Mean Corpuscular HGB Conc 30.4 g/dL (31.8-35.4); Mean Corpuscular Hemoglobin 29.3 pg (27.0-31.2); Mean Corpuscular Volume 96.4 fl (81-99); Mean Platelet Volume 10.4 fl (7.4-10.4); Monocytes # 0.4 K/mm3 (0.1-1.0); Monocytes % 5.4 % (1.7-9.3); Neutrophils # 4.4 K/mm3 (1.8-7.8); Neutrophils % 61.5 % (37.0-80.0); Platelet Count 332 K/mm3 (142-424); Red Blood Count 5.04 M/mm3 (4.20-5.40); Red Cell Distribution Width 14.9 % (11.5-17.5); White Blood Count 7.1 K/mm3 (4.8-10.8)
== END 2023-07-27 23:59 | disposition home or self-care (01) ==
LOC: LAB 08:46
PROVIDERS: Internal Medicine Adolescent Medicine; PCP Nurse Practitioner Family; Visit Provider Nurse Practitioner Family
DX: D64.9 Anemia, unspecified (principal); Z79.899 Other long term (current) drug therapy
CPT/HCPCS: 36415; 80053; 82728; 83540; 83550; 85025

== ENCOUNTER 2024-01-24 09:57 | Outpatient (CLI) | payer MEDICARE, MEDICAID, SELFPAY ==
--- NOTE | 2024-01-24 10:00 | US_ITS ---
FINAL REPORT CLINICAL HISTORY: SUPRACLAVICULAR FOSSA FULLNESS COMPARISON: None FINDINGS: Limited sonographic images were obtained of the soft tissues in the supraclavicular region at the area of interest. Note is made of small thyroid nodules measuring less than 1 cm with no follow-up recommended per TI-RADS criteria. There is no evidence of mass, adenopathy, or fluid collection in the supraclavicular regions. IMPRESSION: No evidence of mass, adenopathy, or fluid collection in the area of interest. Reviewed, Interpreted and Dictated by Young Bains III, MD Transcribed by Margo Banegas Authenticated and [facility]
== END 2024-01-24 23:59 | disposition home or self-care (01) ==
LOC: RAD 09:57
PROVIDERS: PCP Internal Medicine Adolescent Medicine; Visit Provider Nurse Practitioner Family
DX: R22.2 Localized swelling, mass and lump, trunk (principal)
CPT/HCPCS: 76536

== ENCOUNTER 2024-03-04 10:32 | Emergency (ER) | payer MEDICARE, MEDICAID, SELFPAY ==
[2024-03-04] VITALS (11 sets, daily range): BP systolic 97–145; BP diastolic 56–83; PULSE 68–88; RESP 16–18; TEMP 36.6–36.8; O2SAT 97–100; BMI 31.4
--- NOTE | 2024-03-04 10:40 | ECG_ITS ---
APPROVED REPORT Exam: Resting ECG HR:70 bpm ECG Measurements Heart Rate 70 AXES AR 179 P 50 QRSd 91 QRS -41 QT 378 T 51 QTc 400 Conclusion SINUS RHYTHM POSSIBLE LEFT ATRIAL ENLARGEMENT [-0.1mV P-WAVE IN V1/V2] LEFT AXIS DEVIATION [QRS AXIS < -30] ABNORMAL ECG UNCONFIRMED REPORT Electronically signed by : ROSALINA PHILLIP, 03/05/2024 06:49:43
[2024-03-04 11:14] LABS: Albumin Level 4.3 g/dl (3.5-5.0); Chloride 101 mmol/L (98-107)
[2024-03-04 11:15] LABS: Potassium 4.4 mmoL/L (3.5-5.1); Sodium 139 mmol/L (136-145)
[2024-03-04 11:17] LABS: Alanine Aminotransferase 22 U/L (12-78); Albumin/Globulin Ratio 1.3 (1.1-1.8); Alkaline Phosphatase 88 U/L (38-126); Anion Gap 14.4 mEq/L (5-15); Aspartate Amino Transferase 28 U/L (14-36); Bilirubin,Total 0.6 mg/dl (0.2-1.3); Blood Urea Nitrogen 38 mg/dl (7-17); Carbon Dioxide 28 mmol/L (22.0-30.0); Creatine Kinase 70 U/L (30-135); Creatinine Clearance Estimated 65 mL/min (50-200); Estimated Glomerular Filt Rate 50 ml/min (>60); GFR (African American) 61 ML/MIN (>60); Globulin 3.4 g/dL (1.3-3.2); Phosphorous 3.8 mg/dl (2.5-4.5); Total Protein,Serum 7.7 g/dl (6.3-8.2)
[2024-03-04 11:18] LABS: Calcium 8.9 mg/dl (8.4-10.2); Glucose 105 mg/dl (74-100); Lipase 172 U/L (23-300); Magnesium 2.2 mg/dl (1.6-2.3)
--- NOTE | 2024-03-04 11:19 | PC.NURSE ---
I rounded on the pt, no new complaints at this time. no needs voiced. call tay in reach.
--- NOTE | 2024-03-04 11:29 | ED_ITS ---
Discharge Plan Disposition Patient Disposition: Home, Self-Care Condition: Good Prescriptions Prescriptions: New levothyroxine 50 mcg capsule 50 mcg PO DAILY Qty: 30 0RF Discontinued levothyroxine 88 MCG tablet 88 mcg PO DAILY No Action QNASL 80 mcg/actuation HFA aerosol inhaler 2 spray intranasal DAILY Qty: 10.6 2RF Rx Instructions: administer into one nostril bumetanide 1 mg tablet 1 mg PO BID gabapentin 100 mg capsule 200 mg PO HS Farxiga 10 mg tablet 10 mg PO DAILY semaglutide 1 mg/dose (2 mg/1.5 mL) pen injector 2 mg SQ WEEKLY ipratropium bromide 21 mcg (0.03 %) spray,non-aerosol See Rx Instructions .ROUTE .COMPLEX Qty: 30 0RF Dose Instruction: USE 2 SPRAYS IN EACH NOSTRIL 2 TIMES A DAY Rx Instructions: USE 2 SPRAYS IN EACH NOSTRIL 2 TIMES A DAY fluticasone propion-salmeterol [Advair HFA] 115-21 mcg/actuation HFA aerosol inhaler See Rx Instructions .ROUTE .COMPLEX Qty: 12 0RF Dose Instruction: INHALE 2 PUFFS BY MOUTH 2 TIMES A DAY Rx Instructions: INHALE 2 PUFFS BY MOUTH 2 TIMES A DAY albuterol sulfate 90 mcg/actuation HFA aerosol inhaler See Rx Instructions .ROUTE .COMPLEX Qty: 8.5 0RF Dose Instruction: INHALE 2 PUFFS BY MOUTH EVERY 6 HOURS NEEDED FOR SHORTNESS OF BREATH OR WHEEZING Rx Instructions: INHALE 2 PUFFS BY MOUTH EVERY 6 HOURS NEEDED FOR SHORTNESS OF BREATH OR WHEEZING diclofenac sodium 100 GM gel 2 g TP QID PRN (Reason: (Senior Payroll Specialist 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) Pain Per Pt) potassium chloride 10 MEQ capsule, extended release 20 meq PO TID melatonin 3 MG tablet 6 mg PO HS aspirin 81 MG tablet,delayed release (DR/EC) 81 mg PO DAILY spironolactone 25 MG tablet 25 mg PO BID famotidine 20 MG tablet 20 mg PO HS ondansetron 4 MG tablet,disintegrating 4 mg PO Q8H PRN (Reason: Nausea And Vomiting) simethicone 80 MG tablet,chewable 80 mg PO QID Rx Instructions: Chew one tablet 4 times daily after meals and at bedtime midodrine 10 MG tablet 10 mg PO TID Rx Instructions: Use if systolic BP <90 insulin asp prt-insulin aspart 100 UNIT/ML solution 40 units SQ BID acetaminophen-codeine 1 EACH tablet 1 - 2 tab PO TID PRN (Reason: Moderate To Severe Pain) Qty: 45 0RF promethazine 12.5 mg tablet 12.5 mg PO TID PRN (Reason: allergy symptoms) Qty: 15 0RF Rx Instructions: 3 doses during day; last dose no later than 4 hr before bedtime atorvastatin 40 MG tablet 40 mg PO HS 30 Days Qty: 30 0RF Referrals Follow up/Referrals: Clarence Ram MD [Primary Care Provider] - See instructions Activity Restrictions/Add. Instructions Additional Instructions/Restrictions: You were evaluated in the emergency department today. We found that your thyroid levels indicate that you are taking too much thyroid hormone. We are changing your dose. Please follow-up closely with your primary care provider for further recommendations guarding this as well as for further rechecks of your thyroid hormone levels and medication adjustments. Make sure you eat and drink and stay hydrated. Return to the emergency department for any new or worsening symptoms. Clinical Impressions Clinical Impression: Dehydration, Syncope, Orthostatic hypotension, Iatrogenic hyperthyroidism Instructions Patient Instructions: DI for Syncope in Adults (Fainting), DI for Syncope in Children (Fainting) Print Language Print Language: Guamanian Discharge ED Provider: Alyse Herring General Adult HPI General Chief complaint: Syncope Stated complaint: loss of appetite Time Seen by Provider: 03/04/24 10:49 Mode of Arrival: Ambulatory Source of Information: Patient Limitations: No Limitations Description of Symptoms (Recalled from ER Triage Doc. by RN): pt c/o loss of appetite x7d. She also states she had a syncopal episode around 0200 while standing at the fridge. She also reports nausea. pt reports about 3mo ago she had syncopal episodes 3 days in a row in the middle of the night. pt has been worked up by cardiology and neurology without any findings. History of Present Illness HPI narrative: This patient is a 63-year-old female with a history of obesity, CHF, CAD, COPD, hypertension, hyperlipidemia, chronic electrolyte derangements, protein malnutrition, hypothyroidism presented to the emergency department for evaluation with concern for muscle cramps and syncopal episode. Patient notes that she has not been wanting to eat or drink very much for the last week because she is been feeling very stressed and emotionally upset. No physical ailments or complaints related except for some intermittent mild nausea. She notes that she has been having a lot of muscle cramps as a result result of this and feel that she is very dehydrated. She notes that she is having generalized muscle spasms. Last night, she got up in the middle the night and felt her mouth and throat were dry so she went to go get a drink, when she passed out after feeling lightheaded while looking in the refrigerator. No preceding headache, visual disturbance, numbness, tingling, chest pain, shortness of breath, abdominal pain, or other concerns. Currently, her only complaints of the muscle cramps. She notes she is been worked up for syncope in the past by neurology and cardiology without definitive diagnosis. Related Data Home Medications ?Medication ?Instructions ?Recorded ?Confirmed aspirin 81 mg tablet,delayed 81 mg PO DAILY heart health 06/02/21 07/24/23 release diclofenac sodium 3 % topical gel 2 g topical QID PRN (Senior Payroll Specialist Use Only) 06/02/21 07/24/23 Pain Per Pt famotidine 20 mg tablet 20 mg PO HS GERD 06/02/21 07/24/23 insulin aspar prt-insulin aspart 40 units SQ BID Diabetes 06/02/21 07/24/23 100 unit/mL (70-30) subcutaneous soln melatonin 3 mg tablet 6 mg PO HS sleep 06/02/21 07/24/23 midodrine 10 mg tablet 10 mg PO TID High blood pressure 06/02/21 07/24/23 ondansetron 4 mg disintegrating 4 mg PO Q8H PRN Nausea And Vomiting 06/02/21 07/24/23 tablet potassium chloride 10 mEq 20 meq PO TID Diet supplement 06/02/21 07/24/23 capsule,extended release simethicone 80 mg chewable tablet 80 mg PO QID gas 06/02/21 07/24/23 spironolactone 25 mg tablet 25 mg PO BID Fluid 06/02/21 07/24/23 bumetanide 1 mg tablet 1 mg PO BID . 07/01/21 07/24/23 gabapentin 100 mg capsule 200 mg PO HS 03/07/22 07/24/23 dapagliflozin propanediol 10 mg 10 mg PO DAILY 06/02/22 07/24/23 tablet ([place]) semaglutide 1 mg/dose (2 mg/1.5 2 mg SQ WEEKLY 07/24/23 07/24/23 mL) subcutaneous pen injector Previous Rx's ?Medication ?Instructions ?Recorded atorvastatin 40 mg tablet 40 mg PO HS Cholesterol 30 days 09/11/20 #30 tabs acetaminophen 300 mg-codeine 30 mg 1 - 2 tab PO TID PRN Moderate To 06/03/21 tablet Severe Pain #45 tabs promethazine 12.5 mg tablet 12.5 mg PO TID PRN allergy 06/09/22 symptoms #15 tabs beclomethasone dipropionate 80 2 spray intranasal DAILY #10.6 07/24/23 mcg/actuation nasal HFA inhaler grams (QNASL) ipratropium bromide 21 mcg (0.03 See Rx Instructions .Route 01/29/24 %) nasal spray .COMPLEX #30 mL albuterol sulfate 90 mcg/actuation See Rx Instructions .Route 02/27/24 aerosol inhaler .COMPLEX #8.5 grams fluticasone propionate 115 See Rx Instructions .Route 02/27/24 mcg-salmeterol 21 mcg/actuation .COMPLEX #12 grams HFA inhaler (Advair HFA) levothyroxine 50 mcg capsule 50 mcg PO DAILY #30 caps 03/04/24 Allergies Allergy/AdvReac Type Severity Reaction Status Date / Time morphine (MORPHINE) Allergy Mild SHAKING Verified 03/04/24 10:56 penicillin G (PENICILLIN G) Allergy Mild Rash Verified 03/04/24 10:56 [facility] Disclaimer: The information contained in this section may have been updated after the patient was seen, as this information can be updated by other users. Medical History CHF (congestive heart failure) COPD (chronic obstructive pulmonary disease) Allergic rhinitis Dyspnea on exertion Screening for lung cancer Chronic cough Stopped smoking with greater than 30 pack year history Dyspnea on exertion Mild persistent asthma Hyperlipidemia Abnormal ankle brachial index (LARRY) Surgical History History of esophagogastroduodenoscopy (EGD) History of colonoscopy History of eye surgery History of cholecystectomy History of hysterectomy History of hand surgery Family History Other Cancer Diabetes Heart attack Stroke Social History Smoking Status: Never smoker second hand exposure: No alcohol intake: never substance use type: denies use current occupational status: unemployed and disabled Travel in the last 8 weeks: None household members: other housing: house current occupational exposures/hazards: No caffeine: Yes Other Medical History Have you received the Flu Vaccine for this season: Yes Have you received the Pneumonia Vaccine: Yes ROS Obtained: Yes All systems reviewed & no additional complaints except as documented Physical Exam General General appearance: alert and in no apparent distress Head Head exam: atraumatic and normocephalic Eye Eye exam: Present normal appearance, PERRL and EOMI ENT ENT exam: Present normal exam, normal oropharynx, mucous membranes moist and normal external ear exam Neck Neck exam: Present normal inspection, full ROM and trachea midline; Absent tenderness Chest Chest inspection: Present normal inspection and symmetric chest wall rise; Absent tenderness Respiratory Respiratory exam: Present normal lung sounds bilaterally; Absent respiratory distress, wheezes, stridor or accessory muscle use Cardiovascular Cardiovascular exam: Present regular rate and normal rhythm Abdominal Exam Abdominal exam: Present soft; Absent distention, tenderness or guarding Extremities Exam Extremities exam: Present normal inspection, full ROM and normal capillary refill; Absent tenderness or edema Back Exam Back exam: Present normal inspection and full ROM; Absent tenderness Neurological Exam Neurological exam: Present alert, oriented X3, CN II-XII intact and normal gait; Absent motor sensory deficit Psychiatric Psychiatric exam: Present normal affect and normal mood Skin Skin exam: Present warm and dry Medical Decision Making Medical Records Medical records reviewed: Yes I reviewed the patient's medical records. Screening: Per USPSTF and CDC recommendations, given the prevalence of disease in our region, it is our hospital?s policy to screen for HIV and viral Hepatitis for all patients aged 18 and over and those with ongoing risk factors. [place] Inquiry Pt receiving controlled substance: No Vital Signs: 03/04/24 10:43 03/04/24 11:00 03/04/24 11:30 Temperature 98.2 F Temperature Source Oral Pulse Rate 74 77 Pulse Rate [Left] 81 Pulse Rate [Orthostatic Lying Left] Pulse Rate [Orthostatic Sitting Left] Pulse Rate [Orthostatic Standing Left] Respiratory Rate 18 Blood Pressure 113/73 97/70 L Blood Pressure [Orthostatic Lying Left Arm] Blood Pressure [Orthostatic Sitting Right Arm] Blood Pressure [Orthostatic Standing Right Arm] Blood Pressure [Right Arm] 117/83 Blood Pressure Mean 86 76 Blood Pressure Mean [Right Arm] 94 Blood Pressure Source [Right Arm] Automatic Cuff Blood Pressure Position [Right Arm] Sitting 02 Sat by Pulse Oximetry 100 Oxygen Delivery Method Room Air 03/04/24 11:50 03/04/24 12:05 03/04/24 12:30 Temperature Temperature Source Pulse Rate 76 71 Pulse Rate [Left] Pulse Rate [Orthostatic Lying Left] 76 Pulse Rate [Orthostatic Sitting Left] 81 Pulse Rate [Orthostatic Standing Left] 80 Respiratory Rate 18 Blood Pressure 145/56 H 116/72 Blood Pressure [Orthostatic Lying Left Arm] 113/65 Blood Pressure [Orthostatic Sitting Right Arm] 129/74 Blood Pressure [Orthostatic Standing Right Arm] 108/69 L Blood Pressure [Right Arm] Blood Pressure Mean 107 86 Blood Pressure Mean [Right Arm] Blood Pressure Source [Right Arm] Blood Pressure Position [Right Arm] 02 Sat by Pulse Oximetry 97 99 Oxygen Delivery Method 03/04/24 12:35 03/04/24 12:36 03/04/24 12:37 Temperature Temperature Source Pulse Rate 68 69 85 Pulse Rate [Left] Pulse Rate [Orthostatic Lying Left] Pulse Rate [Orthostatic Sitting Left] Pulse Rate [Orthostatic Standing Left] Respiratory Rate 18 16 18 Blood Pressure 113/65 129/74 108/69 L Blood Pressure [Orthostatic Lying Left Arm] Blood Pressure [Orthostatic Sitting Right Arm] Blood Pressure [Orthostatic Standing Right Arm] Blood Pressure [Right Arm] Blood Pressure Mean 81 84 74 Blood Pressure Mean [Right Arm] Blood Pressure Source [Right Arm] Blood Pressure Position [Right Arm] 02 Sat by Pulse Oximetry 99 100 99 Oxygen Delivery Method 03/04/24 13:00 03/04/24 13:35 Temperature 98 F Temperature Source Pulse Rate 88 84 Pulse Rate [Left] Pulse Rate [Orthostatic Lying Left] Pulse Rate [Orthostatic Sitting Left] Pulse Rate [Orthostatic Standing Left] Respiratory Rate 16 16 Blood Pressure 128/78 123/77 Blood Pressure [Orthostatic Lying Left Arm] Blood Pressure [Orthostatic Sitting Right Arm] Blood Pressure [Orthostatic Standing Right Arm] Blood Pressure [Right Arm] Blood Pressure Mean 94 Blood Pressure Mean [Right Arm] Blood Pressure Source [Right Arm] Blood Pressure Position [Right Arm] 02 Sat by Pulse Oximetry 98 Oxygen Delivery Method Lab Data Lab results reviewed: Yes I reviewed the patient's lab results. Lab Results 03/04/24 10:30: WBC 8.2, RBC 5.01, Hgb 15.0, Hct 43.6, MCV 87.0, MCH 29.8, MCHC 34.3, RDW 14.9, Plt Count 327, MPV 8.1, Neut % (Auto) 67.1, Lymph % (Auto) 23.6, [place] % (Auto) 6.2, Eos % (Auto) 1.8, Baso % (Auto) 1.2, Neut # (Auto) 5.5, Lymph # (Auto) 1.9, [place] # (Auto) 0.5, Eos # (Auto) 0.2, Baso # (Auto) 0.1, Sodium 139, Potassium 4.4, Chloride 101, Carbon Dioxide 28, Anion Gap 14.4, BUN 38 H, C reatinine 1.10 H, Estimated Creat Clear 65, Estimated GFR 50 L, Est GFR ( Amer) 61, Glucose 105 H, Calcium 8.9, Phosphorus 3.8, Magnesium 2.2, Total Bilirubin 0.6, AST 28, ALT 22, Alkaline Phosphatase 88, Total Creatine Kinase 70, Troponin I < 0.01, Total Protein 7.7, Albumin 4.3, Globulin 3.4 H, Albumin/Globulin Ratio 1.3, Lipase 172, TSH 0.15 L, Thyroxine (T4) 15.7 H 03/04/24 10:50: HIV 1&2 Antibody Rapid Nonreactive 03/04/24 11:34: Urine Color Yellow, Urine Appearance Clear, Urine pH 6.5, Ur Specific [place] 1.015, Urine Protein Negative, Urine Glucose (UA) 2+, Urine Ketones Negative, Urine Blood Negative, Urine Nitrate Negative, Urine Bilirubin Negative, Urine Urobilinogen 0.2, Ur Leukocyte Esterase Negative, Urine RBC None, Urine WBC Occasional, Ur Squamous Epith Cells 3-5 03/04/24 10:30 03/04/24 10:30 Orders (Tests/Meds): ED MEDICATIONS Discontinued Medications Generic Name Dose Route Start Last Admin Trade Name Freq PRN Reason Stop Dose Admin Sodium Chloride 1,000 mls @ 999 mls/hr 03/04/24 11:50 03/04/24 12:00 Sod Chlor 0.9% 1000ml Bag IV 03/04/24 12:50 999 mls/hr .Q1H1M ONE Administration Ondansetron HCl 4 mg 03/04/24 11:51 03/04/24 12:00 Ondansetron 4mg/2ml Vial IV 03/04/24 11:52 4 mg ONCE ONE Administration ORDERS Category Date Time Status CBC w/Auto Diff [Complete Blood Count Auto Diff] Stat Lab 03/04/24 10:30 Completed CK [Creatine Kinase] Stat Lab 03/04/24 10:30 Completed CMP [Comprehensive Metabolic Panel] Stat Lab 03/04/24 10:30 Completed HIV (1&2) Antibody Rapid Stat Lab 03/04/24 10:50 Completed Hep C Ab with Reflex to RNA Stat Lab 03/04/24 10:50 Received Lipase Stat Lab 03/04/24 10:30 Completed MAG [Magnesium] Stat Lab 03/04/24 10:30 Completed PHOS [Phosphorous] Stat Lab 03/04/24 10:30 Completed T4 (Thyroxine) Stat Lab 03/04/24 10:30 Completed TSH [Thyroid Stimulating Hormone] Stat Lab 03/04/24 10:30 Completed Trop I [Troponin I] Stat Lab 03/04/24 10:30 Completed UA [Urinalysis and Microscopic] Stat Lab 03/04/24 11:34 Completed ECG Data Tracing #1: I reviewed this ECG and interpreted as documented below: Normal sinus rhythm with a ventricular rate of 70 bpm. Left atrial enlargement. Left axis deviation. No acute ST changes concerning for ischemia. Normal intervals. ECG initial impression date: 03/04/24 ECG initial impression time: 10:42 Medical Decision Narrative: In summary, this patient is a 63-year-old female presenting to the Emergency Department for evaluation of poor appetite, muscle cramps, lightheadedness, and syncope. Differential diagnoses considered include but are not limited to dehydration, electrolyte derangements, malnutrition, orthostatic hypotension, UTI, cardiac dysfunction. Ruling out the most morbid conditions drove assessment. It should be noted patient's history includes hypertension, lipidemia, CAD, COPD which may or may not be at goal therapy. This complicates all aspects of care by increasing patient's risk for morbidity. On exam, the patient is lying in bed in no acute distress. She is neurologically intact with reassuring cardiopulmonary and abdominal exams. Vitals are reassuring on cardiac telemetry. Workup included broad lab evaluation to evaluate for infectious, metabolic, cardiac causes of her symptoms. EKG was also obtained which was reassuring. Labs demonstrated elevated T4 and low TSH concerning for iatrogenic hypothyroidism in the setting of levothyroxine use. She takes 88 mcg daily according to medication history and verification with pharmacy. She also has very mild elevation in creatinine and BUN concerning for dehydration in the setting of poor oral intake. She responded well to IV fluids and is very well- appearing on reassessment. orthostatic vital signs demonstrate a slight drop in blood pressure but she did not become severely symptomatic and she never became truly hypotensive. Ultimately, I feel she is appropriate for discharge home with lower dose of levothyroxine to 50 mcg and close follow-up with primary care for reassessment, which she states she already has arranged. She was given instructions for oral hydration and nutrition at home and strict return precautions. She was discharged after all questions were answered. Critical Care Critical Care Time Critical Care Time: No
[2024-03-04 11:31] LABS: Basophils # 0.1 K/mm3 (0-0.2); Basophils % 1.2 % (0.1-2.0); Eosinophils # 0.2 K/mm3 (0.0-0.4); Eosinophils % 1.8 % (0.1-12.0); Hematocrit 43.6 % (37.0-47.0); Lymphocytes # 1.9 K/mm3 (0.7-4.5); Lymphocytes % 23.6 % (10-50); Mean Corpuscular HGB Conc 34.3 g/dL (31.8-35.4); Mean Corpuscular Hemoglobin 29.8 pg (27.0-31.2); Mean Platelet Volume 8.1 fl (7.4-10.4); Monocytes # 0.5 K/mm3 (0.1-1.0); Monocytes % 6.2 % (1.7-9.3); Neutrophils # 5.5 K/mm3 (1.8-7.8); Neutrophils % 67.1 % (37.0-80.0); Platelet Count 327 K/mm3 (142-424); Red Blood Count 5.01 M/mm3 (4.20-5.40); Red Cell Distribution Width 14.9 % (11.5-17.5); Troponin I < 0.01 ng/ml (0.00-0.034); White Blood Count 8.2 K/mm3 (4.8-10.8)
[2024-03-04 11:35] LABS: T4 (Thyroxine) 15.7 ug/dl (5.53-11.0)
[2024-03-04 11:44] LABS: Microscopic, Urine URINE MICROSCOPIC (MICROSCOPIC)
[2024-03-04 11:49] LABS: Thyroid Stimulating Hormone 0.15 uIU/mL (0.465-4.68)
[2024-03-04] MEDS: 0.9 % SODIUM CHLORIDE 1000ML 1,000 ML 999 ML IV (12:00)
[2024-03-04] MEDS: ONDANSETRON 4MG/2ML VIAL 4 MG IV (12:00)
--- NOTE | 2024-03-04 12:05 | PC.NURSE ---
I rounded on the pt and took her a diet starry. pt declines any other needs at this time. pt is visiting with her family member. call maggi in reach.
[2024-03-04 12:09] LABS: Appearance,Urine CLEAR (Clear); Bilirubin,Urine Negative (Negative); Blood, Urine Negative (Negative); Color,Urine YELLOW (Yellow); Glucose,Urine (UA) 2+ (Negative); Ketones,Urine Negative (Negative); Leukocyte Esterase,Urine Negative (Negative); Nitrate,Urine Negative (Negative); PH,Urine 6.5 (5.0-8.5); Protein,Urine Negative (Negative); Specific Gravity, Urine 1.015 (1.005-1.030); Urobilinogen,Urine 0.2 EU/dl (0.2)
[2024-03-04 12:59] LABS: WBC,Urine Occasional #/hpf (0-3)
--- NOTE | 2024-03-04 13:38 | PC.NURSE ---
PT RESTING IN BED. CALL LIGHT WITHIN REACH. BED IN LOWEST POSITION. NO QUESTIONS OR CONCERNS VOICED.
[2024-03-04 14:28] LABS: HIV (1&2) Antibody Rapid NONREACTIVE (NONREACTIVE)
[2024-03-05 08:21] LABS: HCV Ab Non Reactive (Non Reactive)
== END 2024-03-04 13:45 | disposition home or self-care (01) ==
PROVIDERS: Emergency Provider Emergency Medicine; PCP Internal Medicine Adolescent Medicine
DX: E05.80 Other thyrotoxicosis without thyrotoxic crisis or storm (principal); E86.0 Dehydration; R55 Syncope and collapse; R63.8 Other symptoms and signs concerning food and fluid intake; R11.0 Nausea; R25.2 Cramp and spasm
CPT/HCPCS: 80053; 81001; 82550; 83690; 83735; 84100; 84436; 84443; 84484; 85025; 86803; 87389; 93005; 96361; 96374; 99283; J2405; J7030

== ENCOUNTER 2024-03-12 11:43 | Outpatient (CLI) | payer MEDICARE, MEDICAID, SELFPAY | END 2024-03-12 23:59 | disposition home or self-care (01) | LOC: RT 11:45 | PROVIDERS: PCP Internal Medicine Adolescent Medicine; Visit Provider Nurse Practitioner Family | DX: R55 Syncope and collapse (principal) | CPT/HCPCS: 93225; 93226 ==

== ENCOUNTER 2024-03-21 07:52 | Outpatient (CLI) | payer MEDICARE, MEDICAID, SELFPAY ==
--- NOTE | 2024-03-21 | CA_ITS ---
FINAL REPORT TECHNIQUE: Color Doppler, duplex Doppler and cerda scale sonography of the bilateral neck vasculature was performed. Velocities were measured in the carotid arteries. Stenosis evaluation based on velocity criteria. CLINICAL HISTORY: Syncope, Ex-smoker COMPARISON: None FINDINGS: The peak systolic velocity of the right common carotid artery is 124 cm/sec and internal carotid artery 83 cm/sec. The diastolic velocity in the internal carotid artery is 35 cm/sec. The ICA/CCA ratio is 0.9. Visually, no significant plaque is seen. These findings are consistent with less than 50% stenosis. The external carotid artery is patent. The right vertebral artery is patent with antegrade flow. The peak systolic velocity of the left common carotid artery is 93 cm/sec and internal carotid artery 95 cm/sec. The diastolic velocity in the internal carotid artery is 43 cm/sec. The ICA/CCA ratio is 1.0. Visually, no significant plaque is seen. These findings are consistent with less than 50% stenosis. The external carotid artery is patent. The left vertebral artery is patent with antegrade flow. IMPRESSION: No evidence of significant carotid stenosis. Bilateral patent vertebral arteries. If indicated, CTA or catheter angiography could further evaluate. Reviewed, Interpreted and Dictated by Young Bains III, MD Transcribed by Holly Echavarria Authenticated and [facility]
--- NOTE | 2024-03-21 | CA_ITS ---
APPROVED REPORT EXAM: Comprehensive 2D, Doppler, and color-flow Echocardiogram Combined Rail Operator: CIARA Rojas, RVS Ht: 5 ft 2 in Wt: 205lbs BSA: 1.93 BP: 123/77 mmHg Indications: CAD, CHF, Syncope-dehydration, Ex-smoker, COPD 2D Dimensions Left Atrium 3.33 cm LA Volume 39.50 mL LA Volume Index 20.858255 mL/m2 (M/F) 16-34 M-Mode Dimensions RVDd 2.34 cm (0.9-2.6) LA Diam 3.24 cm (1.9-4.0) LVDd 4.75 cm (3.5-5.7) LVDs 2.88 cm (3.5-5.7) IVSd 1.04 cm (0.6-1.1) PWd 0.97 cm (0.6-1.1) EF (Teich) 69.80% EPSs 0.67 cm FS 39.40% EDV (Teich) 104.90 mL TAPSE 1.68 (<1.7) ESV (Teich) 31.70 mL LV Diastology E Decel Time 227 (160-240 msec) E/A Ratio 0.80 MED A' 12.10 cm/s LAT A' 12.40 cm/s Aortic Valve MORE Index 1.51 cm2/m2 AoV Peak Tim. 104.0 (50-130 cm/s) AO Peak GR. 4.40 mmHg AO Mean GR. 2.10 (<5 mmHg) AO VTI 20.3 (18-25 cm) MORE (VTI) 2.99 (2.5-4.5 cm2) Mitral Valve MV A Velocity 86.0 (40-130 cm/s) E/A Ratio 0.80 Tricuspid Valve TR P. Velocity 247.00 cm/s RAP Estimate 10.00 mmHg RVSP 34.50 mmHg Left Ventricle The left ventricle is normal size. The left ventricular systolic function is normal. The left ventricular ejection fraction is within the normal range. There is increased LV wall thickness. There is normal LV segmental wall motion. Transmitral Doppler flow pattern suggests impaired LV relaxation. LVEF is 55%. Right Ventricle The right ventricle is normal size. The right ventricular systolic function is normal. Atria The left atrium size is normal. The right atrium size is normal. There is no Doppler evidence of interatrial shunt. Aortic Valve Aortic valve is mildly thickened. There is no aortic valvular stenosis. No aortic regurgitation is present. Mitral Valve The mitral valve is normal in structure. No evidence of mitral valve stenosis. Trace mitral regurgitation. Tricuspid Valve The tricuspid valve leaflets are thin and pliable. Mild tricuspid regurgitation. RVSP is 25-30 mmHg. Pulmonic Valve The pulmonary valve is normal in structure. Trace pulmonic regurgitation. Great Vessels The aortic root is normal in size. The ascending aorta is normal in size. IVC is normal in size and collapses >50% with inspiration. Pericardium There is no pericardial effusion. Other Information Study Quality: Fair Conclusion Normal biventricular systolic function. Mild TR. RVSP 25-30 mmHg. Electronically signed by : Elicia Cornejo MD 03/26/2024 23:38:08
== END 2024-03-21 23:59 | disposition home or self-care (01) ==
LOC: RT 07:53
PROVIDERS: PCP Internal Medicine Adolescent Medicine; Visit Provider Internal Medicine Adolescent Medicine
DX: I36.1 Nonrheumatic tricuspid (valve) insufficiency (principal); R55 Syncope and collapse
CPT/HCPCS: 93306; 93880

== ENCOUNTER 2024-03-25 08:48 | Outpatient (CLI) | payer MEDICARE, MEDICAID, SELFPAY ==
--- NOTE | 2024-03-25 08:51 | XR_ITS ---
FINAL REPORT CLINICAL HISTORY: SCREENING COMPARISON: 02/03/2022 FINDINGS: Using L1-4, the bone mineral density of the spine is 0.944 g/cm2, corresponding to T-score of -0.9, within normal limits. Previously was 0.841 with T-score of -1.9. Using the left hip, the bone mineral density of the femoral neck is 0.697 g/cm2, corresponding to a T-score of -1.4, consistent with low bone density. Previously was 0.680 with T-score of -2.1. Using the right hip, the bone mineral density of the total hip is 0.714 g/cm2, corresponding to a T-score of -1.9, consistent with low bone density. Previously was 0.614 with T-score of -2.1. FRAX 10 year fracture risk is 1.6% for a hip fracture and 14% for a major osteoporotic fracture. NOTE: T-score: Standard deviation compared with peak bone mass of young adult mean. *Following the recommendations of the International Society of Bone densitometry, classification of hip BMD is based on the lower of two T-scores; total hip or femoral neck. IMPRESSION: Diminished bone mineral density consistent with low bone density. Reviewed, Interpreted and Dictated by Young Bains III, MD Transcribed by Margo Banegas Authenticated and [facility]
== END 2024-03-25 23:59 | disposition home or self-care (01) ==
LOC: RAD 08:49
PROVIDERS: PCP Nurse Practitioner Family; Visit Provider Nurse Practitioner Family
DX: Z78.0 Asymptomatic menopausal state (principal)
CPT/HCPCS: 77080

== ENCOUNTER 2024-04-01 15:58 | Outpatient (CLI) | payer MEDICARE, MEDICAID, SELFPAY ==
--- NOTE | 2024-04-01 16:00 | MM_ITS ---
PROCEDURE INFORMATION: Exam: MG Bilateral Screening 3D Mammography Exam date and time: 04/01/2024 3:55 PM Age: 63 years old Clinical indication: Screening. No family history of breast cancer. TECHNIQUE: Imaging protocol: Bilateral Screening tomosynthesis and 2D mammography including computer-aided detection (CAD) when performed. COMPARISON: 1. MG MM DIG SCREENING MAMM BI W/CAD 02/20/2023 1:06 PM 2. MG MM DIG SCREENING MAMM BI W/CAD 02/03/2022 9:37 AM 3. MG DMSB DIG MAMM-SCREEN RADHA W/CAD 09/22/2016 8:37 AM 4. MG DMSB DIG MAMM-SCREEN RADHA 02/28/2014 11:00 AM FINDINGS: MAMMOGRAPHY: Breast composition: There are scattered areas of fibroglandular density. Mass: None. Architectural distortion: None. Calcifications: No suspicious calcifications. Asymmetric density: None. Skin thickening: None. Axillary adenopathy: None. IMPRESSION: No mammographic evidence of malignancy. Annual screening is recommended unless otherwise clinically indicated. ASSESSMENT: BI-RADS Category 1: Negative.
== END 2024-04-01 23:59 | disposition home or self-care (01) ==
LOC: RAD 15:58
PROVIDERS: PCP Internal Medicine Adolescent Medicine; Visit Provider Internal Medicine Adolescent Medicine
DX: Z12.31 Encounter for screening mammogram for malignant neoplasm of breast (principal)
CPT/HCPCS: 77063; 77067

== ENCOUNTER 2024-04-09 10:55 | Outpatient (CLI) | payer MEDICARE, MEDICAID, SELFPAY ==
[2024-04-09 11:48] LABS: Anion Gap 12.6 mEq/L (5-15); Blood Urea Nitrogen 34 mg/dl (7-17); Calcium 9.8 mg/dl (8.4-10.2); Carbon Dioxide 31 mmol/L (22.0-30.0); Chloride 98 mmol/L (98-107); Estimated Glomerular Filt Rate 50 ml/min (>60); GFR (African American) 61 ML/MIN (>60); Glucose 107 mg/dl (74-100); Potassium 4.6 mmoL/L (3.5-5.1); Sodium 137 mmol/L (136-145)
[2024-04-09 12:06] LABS: Free T4 (Free Thyroxine) 1.37 ng/dl (0.78-2.19)
== END 2024-04-09 23:59 | disposition home or self-care (01) ==
LOC: LAB 10:57
PROVIDERS: PCP Internal Medicine Adolescent Medicine; Visit Provider Nurse Practitioner Family
DX: R55 Syncope and collapse (principal); R63.4 Abnormal weight loss; R79.89 Other specified abnormal findings of blood chemistry
CPT/HCPCS: 36415; 80048; 84439; 84443

== ENCOUNTER 2024-08-10 13:29 | Emergency (ER) | payer MEDICARE, MEDICAID, SELFPAY ==
[2024-08-10 13:48] VITALS: BP 112/75; PULSE 72; RESP 16; TEMP 36.8; O2SAT 98; BMI 32.1
--- NOTE | 2024-08-10 13:53 | XR_ITS ---
PROCEDURE INFORMATION: Exam: XR Right Hand Exam date and time: 08/10/2024 2:25 PM Age: 63 years old Clinical indication: Injury or trauma; Fall; Blunt trauma (contusions or hematomas); Hand; Right; Additional info: Fall, pain TECHNIQUE: Imaging protocol: Radiologic exam of the right hand. Views: 3 or more views. COMPARISON: CR XR HAND RT MIN 3V 08/10/2024 2:25 PM FINDINGS: Bones/joints: Mild degenerative changes of the radiocarpal and triscaphe joints, with mild joint space narrowing. No acute fracture or dislocation. Soft tissues: Normal. IMPRESSION: No acute fracture or dislocation.
--- NOTE | 2024-08-10 13:53 | XR_ITS ---
PROCEDURE INFORMATION: Exam: XR Right Wrist Exam date and time: 08/10/2024 2:26 PM Age: 63 years old Clinical indication: Injury or trauma; Fall; Blunt trauma (contusions or hematomas); Wrist; Right; Additional info: Fall, pain TECHNIQUE: Imaging protocol: Radiologic exam of the right wrist. Views: 3 or more views. COMPARISON: CR WRISTCMRT XR wrist RT min 3V 11/20/2017 4:36 PM FINDINGS: Bones/joints: Mild degenerative changes of the radiocarpal and triscaphe joints, with mild joint space narrowing. No acute fracture or dislocation. Soft tissues: Normal. IMPRESSION: No acute fracture or dislocation.
--- NOTE | 2024-08-10 13:55 | XR_ITS ---
PROCEDURE INFORMATION: Exam: XR Right Shoulder Exam date and time: 08/10/2024 2:22 PM Age: 63 years old Clinical indication: Injury or trauma; Fall; Blunt trauma (contusions or hematomas); Shoulder; Right TECHNIQUE: Imaging protocol: Radiologic exam of the right shoulder. Views: 2 or more views. COMPARISON: CT LUNG SCREENING 07/17/2023 10:34 AM FINDINGS: Bones/joints: No acute fracture or dislocation. Lungs: Calcified granuloma within the periphery of the right upper lobe predict line multilevel thoracic spine degenerative disc space narrowing. Soft tissues: Normal. IMPRESSION: No acute fracture or dislocation.
--- NOTE | 2024-08-10 13:55 | XR_ITS ---
PROCEDURE INFORMATION: Exam: XR Right Elbow Exam date and time: 08/10/2024 2:40 PM Age: 63 years old Clinical indication: Injury or trauma; Fall; Blunt trauma (contusions or hematomas); Elbow; Right TECHNIQUE: Imaging protocol: Radiologic exam of the right elbow. Views: 3 or more views. COMPARISON: CR ELBOWCMRT XR elbow RT min 3V 12/17/2017 7:39 PM FINDINGS: Bones/joints: Normal. Soft tissues: Normal. IMPRESSION: No acute findings.
[2024-08-10] MEDS: HYDROCODONE/APAP 5/325 MG TABLET 1 TAB PO (14:10)
--- NOTE | 2024-08-10 14:11 | ED_ITS ---
<Statement entered by Rosalie Bosch MD - 08/10/24 15:32> I was consulted by the NORAH, and we discussed the complexity of the problems being addressed. I approved the treatment and management plan for this patient's care in the emergency department, thus performing a substantive portion of the medical decision making. Rosalie Bosch MD, FLY, FACEP Discharge Plan Disposition Patient Disposition: Home, Self-Care Condition: Good Prescriptions Prescriptions: No Action QNASL 80 mcg/actuation HFA aerosol inhaler 2 spray intranasal DAILY Qty: 10.6 2RF Rx Instructions: administer into one nostril bumetanide 1 mg tablet 1 mg PO BID gabapentin 100 mg capsule 200 mg PO HS Farxiga 10 mg tablet 10 mg PO DAILY semaglutide 1 mg/dose (2 mg/1.5 mL) pen injector 2 mg SQ WEEKLY ipratropium bromide 21 mcg (0.03 %) spray,non-aerosol See Rx Instructions .ROUTE .COMPLEX Qty: 30 0RF Dose Instruction: USE 2 SPRAYS IN EACH NOSTRIL 2 TIMES A DAY Rx Instructions: USE 2 SPRAYS IN EACH NOSTRIL 2 TIMES A DAY fluticasone propion-salmeterol [Advair HFA] 115-21 mcg/actuation HFA aerosol inhaler See Rx Instructions .ROUTE .COMPLEX Qty: 12 0RF Dose Instruction: INHALE 2 PUFFS BY MOUTH 2 TIMES A DAY Rx Instructions: INHALE 2 PUFFS BY MOUTH 2 TIMES A DAY albuterol sulfate 90 mcg/actuation HFA aerosol inhaler See Rx Instructions .ROUTE .COMPLEX Qty: 8.5 0RF Dose Instruction: INHALE 2 PUFFS BY MOUTH EVERY 6 HOURS NEEDED FOR SHORTNESS OF BREATH OR WHEEZING Rx Instructions: INHALE 2 PUFFS BY MOUTH EVERY 6 HOURS NEEDED FOR SHORTNESS OF BREATH OR WHEEZING diclofenac sodium 100 GM gel 2 g TP QID PRN (Reason: (Cremator Use Only) Pain Per Pt) potassium chloride 10 MEQ capsule, extended release 20 meq PO TID melatonin 3 MG tablet 6 mg PO HS aspirin 81 MG tablet,delayed release (DR/EC) 81 mg PO DAILY spironolactone 25 MG tablet 25 mg PO BID famotidine 20 MG tablet 20 mg PO HS ondansetron 4 MG tablet,disintegrating 4 mg PO Q8H PRN (Reason: Nausea And Vomiting) simethicone 80 MG tablet,chewable 80 mg PO QID Rx Instructions: Chew one tablet 4 times daily after meals and at bedtime midodrine 10 MG tablet 10 mg PO TID Rx Instructions: Use if systolic BP <90 insulin asp prt-insulin aspart 100 UNIT/ML solution 40 units SQ BID acetaminophen-codeine 1 EACH tablet 1 - 2 tab PO TID PRN (Reason: Moderate To Severe Pain) Qty: 45 0RF promethazine 12.5 mg tablet 12.5 mg PO TID PRN (Reason: allergy symptoms) Qty: 15 0RF Rx Instructions: 3 doses during day; last dose no later than 4 hr before bedtime atorvastatin 40 MG tablet 40 mg PO HS 30 Days Qty: 30 0RF levothyroxine 50 mcg capsule 50 mcg PO DAILY Qty: 30 0RF Referrals Follow up/Referrals: Wendy Payne APRN [Primary Care Provider] - See instructions Activity Restrictions/Add. Instructions Additional Instructions/Restrictions: May use ice, ibuprofen and Tylenol for pain. If pain persist please see PCP in follow-up Clinical Impressions Clinical Impression: Wrist sprain Qualifiers: Encounter type: initial encounter Laterality: unspecified laterality Qualified Code(s): S63.509A - Unspecified sprain of unspecified wrist, initial encounter Instructions Patient Instructions: Wrist Sprain Print Language Print Language: Icelandic Discharge ED Provider: Rosalie Bosch General Adult HPI General Chief complaint: PAIN Stated complaint: AO 08/10/24 01:00 R hand pain/swelling Time Seen by Provider: 08/10/24 13:47 Mode of Arrival: Ambulatory Source of Information: Patient Description of Symptoms (Recalled from ER Triage Doc. by RN): pt presents to ED with c/o right wrist/hand pain. pt reports that she was walking on concrete where there was loose gravel and she slipped and fell. History of Present Illness HPI narrative: This is a 63-year-old female who presents to the ED today after she fell on some gravel that was on concrete. She fell onto her right knee and her right wrist. She is fell on an outstretched hand. She has having pain in her right wrist and thumb. She does have some pain of her right arm. She says she can move it at her elbow and shoulder but it is a little sore. She says her right knee is fine. No other associated signs or symptoms at this time. Related Data Home Medications ?Medication ?Instructions ?Recorded ?Confirmed aspirin 81 mg tablet,delayed 81 mg PO DAILY heart health 06/02/21 07/24/23 release diclofenac sodium 3 % topical gel 2 g topical QID PRN (Cremator Use Only) 06/02/21 07/24/23 Pain Per Pt famotidine 20 mg tablet 20 mg PO HS GERD 06/02/21 07/24/23 insulin aspar prt-insulin aspart 40 units SQ BID Diabetes 06/02/21 07/24/23 100 unit/mL (70-30) subcutaneous soln melatonin 3 mg tablet 6 mg PO HS sleep 06/02/21 07/24/23 midodrine 10 mg tablet 10 mg PO TID High blood pressure 06/02/21 07/24/23 ondansetron 4 mg disintegrating 4 mg PO Q8H PRN Nausea And Vomiting 06/02/21 07/24/23 tablet potassium chloride 10 mEq 20 meq PO TID Diet supplement 06/02/21 07/24/23 capsule,extended release simethicone 80 mg chewable tablet 80 mg PO QID gas 06/02/21 07/24/23 spironolactone 25 mg tablet 25 mg PO BID Fluid 06/02/21 07/24/23 bumetanide 1 mg tablet 1 mg PO BID . 07/01/21 07/24/23 gabapentin 100 mg capsule 200 mg PO HS 03/07/22 07/24/23 dapagliflozin propanediol 10 mg 10 mg PO DAILY 06/02/22 07/24/23 tablet (Farxiga) semaglutide 1 mg/dose (2 mg/1.5 2 mg SQ WEEKLY 07/24/23 07/24/23 mL) subcutaneous pen injector Previous Rx's ?Medication ?Instructions ?Recorded atorvastatin 40 mg tablet 40 mg PO HS Cholesterol 30 days 09/11/20 #30 tabs acetaminophen 300 mg-codeine 30 mg 1 - 2 tab PO TID PRN Moderate To 06/03/21 tablet Severe Pain #45 tabs promethazine 12.5 mg tablet 12.5 mg PO TID PRN allergy 06/09/22 symptoms #15 tabs beclomethasone dipropionate 80 2 spray intranasal DAILY #10.6 07/24/23 mcg/actuation nasal HFA inhaler grams (QNASL) ipratropium bromide 21 mcg (0.03 See Rx Instructions .Route 01/29/24 %) nasal spray .COMPLEX #30 mL levothyroxine 50 mcg capsule 50 mcg PO DAILY #30 caps 03/04/24 albuterol sulfate 90 mcg/actuation See Rx Instructions .Route 07/23/24 aerosol inhaler .COMPLEX #8.5 grams fluticasone propionate 115 See Rx Instructions .Route 07/23/24 mcg-salmeterol 21 mcg/actuation .COMPLEX #12 grams HFA inhaler (Advair HFA) Allergies Allergy/AdvReac Type Severity Reaction Status Date / Time morphine (MORPHINE) Allergy Mild SHAKING Verified 03/04/24 10:56 penicillin G (PENICILLIN G) Allergy Mild Rash Verified 03/04/24 10:56 PFSH [facility] Disclaimer: The information contained in this section may have been updated after the patient was seen, as this information can be updated by other users. Medical History CHF (congestive heart failure) COPD (chronic obstructive pulmonary disease) Allergic rhinitis Dyspnea on exertion Screening for lung cancer Chronic cough Stopped smoking with greater than 30 pack year history Dyspnea on exertion Mild persistent asthma Hyperlipidemia Abnormal ankle brachial index (LARRY) Surgical History History of esophagogastroduodenoscopy (EGD) History of colonoscopy History of eye surgery History of cholecystectomy History of hysterectomy History of hand surgery Family History Other Cancer Diabetes Heart attack Stroke Social History Smoking Status: Current every day smoker tobacco type: cigarettes packs per day: 1 second hand exposure: No alcohol intake: never substance use type: denies use current occupational status: unemployed and disabled Travel in the last 8 weeks: None household members: other housing: house current occupational exposures/hazards: No caffeine: Yes Have you lived/traveled outside US in past 30 days?: No Contact w/someone who lives/traveled outside US past 30 days?: No Exposure to someone with infectious disease in past 14 days?: No Do you have a fever (greater than 100.4 F or 38 C)?: No Have you tested positive for COVID-19: No Exposed to someone with COVID-19 in past 14 days?: No Do you have a sore throat?: No Do you have a cough?: No Do you have any weakness?: No Do you have any diarrhea?: No Are you experiencing any unusual bleeding?: No Do you have any muscle aches/pain?: No Do you have any abdominal pain?: No Are you experiencing loss of taste or smell?: No Other Medical History Have you received the Flu Vaccine for this season: Yes Have you received the Pneumonia Vaccine: Yes ROS Obtained: Yes Systems reviewed as appropriate & no additional complaints except as documented Constitutional Constitutional: Reports as per HPI Physical Exam General General appearance: alert and in no apparent distress Head Head exam: atraumatic and normocephalic Eye Eye exam: Present normal appearance, PERRL and EOMI ENT ENT exam: Present normal oropharynx and mucous membranes moist Neck Neck exam: Present full ROM and trachea midline Respiratory Respiratory exam: Present normal lung sounds bilaterally Cardiovascular Cardiovascular exam: Present regular rate, normal rhythm, normal heart sounds, +S1 and +S2 Abdominal Exam Abdominal exam: Present soft and normal bowel sounds Extremities Exam Extremities exam: Present normal inspection, normal capillary refill and other (Right wrist and hand pain) Neurological Exam Neurological exam: Present alert, oriented X3 and normal gait Skin Skin exam: Present warm, dry and intact Medical Decision Making Medical Records Screening: Per USPSTF and CDC recommendations, given the prevalence of disease in our region, it is our hospital?s policy to screen for HIV and viral Hepatitis for all patients aged 18 and over and those with ongoing risk factors. [place] Inquiry Pt receiving controlled substance: No [place] was queried for this patient: No Vital Signs: 08/10/24 13:48 08/10/24 16:20 Temperature 98.3 F 98.0 F Temperature Source Oral Pulse Rate 81 Pulse Rate [Left Radial] 72 Respiratory Rate 16 16 Blood Pressure 135/78 Blood Pressure [Right Arm] 112/75 Blood Pressure Mean [Right Arm] 87 02 Sat by Pulse Oximetry 98 Orders (Tests/Meds): ED MEDICATIONS Discontinued Medications Generic Name Dose Route Start Last Admin Trade Name Freq PRN Reason Stop Dose Admin Hydrocodone Bitart/Acetaminophen 1 tab 08/10/24 13:55 08/10/24 14:10 Hydrocodone/Apap 5/325 Mg Tablet PO 08/10/24 13:56 1 tab ONCE ONE Administration ORDERS Category Date Time Status Shoulder XR right miminum 2 views [XR shoulder RT min Exams 08/10/24 13:55 Completed 2V] Stat XR elbow RT min 3V Stat Exams 08/10/24 13:55 Completed XR hand RT min 3V Stat Exams 08/10/24 13:53 Completed XR wrist RT min 3V Stat Exams 08/10/24 13:53 Completed Medical Decision Narrative: Insert review patient is a 63-year-old female presenting to the emergency department for evaluation of right wrist and hand pain. He fell on an outstretched hand over some gravel.. Patient is hemodynamically stable and nontoxic-appearing upon arrival, afebrile. Differential diagnosis includes fracture sprain or strain. Workup will be conducted with x-rays. Initial inventions include pain meds. Initial workup reviewed by me. Imaging informally interpreted by me and remarkable for negative. Formal imaging read remarkable for nothing acute. Please see radiology report for full report. upon repeat evaluation patient's pain is improved. Patient safe for discharge home. Critical Care Critical Care Time Critical Care Time: No
[2024-08-10 16:20] VITALS: BP 135/78; PULSE 81; RESP 16; TEMP 36.7; O2SAT 95
== END 2024-08-10 16:20 | disposition home or self-care (01) ==
PROVIDERS: Emergency Provider Student in an Organized Health Care Education/Training Program; PCP Nurse Practitioner Family
DX: S63.501A Unspecified sprain of right wrist, initial encounter (principal); M25.531 Pain in right wrist; W01.10XA Fall on same level from slipping, tripping and stumbling with subsequent striking against unspecified object, initial encounter
CPT/HCPCS: 73030; 73080; 73110; 73130; 99284

== ENCOUNTER 2024-10-17 13:09 | Outpatient (CLI) | payer MEDICARE, MEDICAID, SELFPAY ==
--- OUTSIDE RECORDS SUMMARY | 2024-08-22 14:30 | XMS_ITS | Encounter Summary ---
Author Organization Healthcare Address [address] [place] [address] Care Team Providers Care Model And Mold Maker Name Role Phone Clarence Ram MD Primary Care Provider [phone] Reason for Referral * Imaging (Routine) - Pending Review Specialty Diagnoses / Procedures Referred By Danilo joseph Referred To Contact Radiology Diagnoses Excessive and redundant skin and subcutaneous tissue Procedures CT Abdomen Pelvis wo IV Contrast Tiago Noguera MD [address] [address] Phone: tel: fax: Referral ID Status Reason Start Date Expiration Date V isits Requested Visits Authorized [id number] Pending Review 08/22/2024 02/21/2026 1 1 Reason for Visit * Reason Comments Consult * Consultation (Routine) - Closed Specialty Diagnoses / Procedures Referred By Danilo joseph Referred To Contact Plastic Surgery Diagnoses Loose skin Excessive body weight loss Wendy Payne, FIGHT MANAGER [address] [place] [address] Phone: tel: fax: Referral ID Status Reason Start Date Expiration Date V isits Requested Visits Authorized [id number] Closed Specialty Services Required 05/22/2024 11/21/2025 1 1 Encounter Details Date Type Department Care Team (Late st Contact Info) Description 08/22/2024 2:30 PM EDT Consult [facility] [address] [place] [address] Tiago Noguera MD [address] [address] Excessive and redundant skin and subcutaneous tissue (Primary Dx) Social History Tobacco Use Types Packs/Day Years Used Date Smoking Tobacco: Never Smokeless Tobacco: Never Alcohol Use Standard Drinks/Week Comments Yes 0 (1 standard drink = 0.6 oz pure alcohol) Alcoholic Drinks/day: Minimum alcohol consumption Comments Unknown Sex and Gender Information Value Date Recorded Sex Assigned at Not on file Legal Sex Female 7:37 PM EDT Gender Identity Not on file Sexual Orientation Not on file documented as of this encounter Last Filed Vital Signs Vital Sign Reading Time Taken Comments Blood Pressure 114/78 08/22/2024 2:39 PM EDT Pulse 88 08/22/2024 2:39 PM EDT Temperature 36.7 C (98.1 F) 08/22/2024 2:39 PM EDT Respiratory Rate - - Oxygen Saturation 96% 08/22/2024 2:39 PM EDT Inhaled Oxygen Concentration - - Weight 81.8 kg (180 lb 5.4 oz) 08/22/2024 2:39 P M EDT Height 157.5 cm (5' 2 ) 08/22/2024 2:39 PM EDT Body Mass Index 32.98 08/22/2024 2:39 PM EDT documented in this encounter Miscellaneous Notes * Progress Notes - Jesika Varela - 08/22/2024 2:30 PM EDT HISTORY OF PRESENT ILLNESS This is an initial consultation with this 63 y.o. year old female seen today at the request of Clarence Pedroza MD and/or Wendy Payne, DULCE MARIA [address] [place] [address] for evaluation of excessive skin and subcutaneous tissue following massive weight loss. She was hospitalized for over a year back in 2020 for what she says was a consequence of getting the covid vaccine but as we don't have her records yet it is unclear why she in critical condition. She lost over 200 lbs throughout that year. She has been weight stable for about 9 months. Her excessive skin significantly affects her quality of life. She has a constant rash underneath her abdominal pannus that requires daily application of deodorant and nystatin cream. She has trouble finding clothes that comfortably fit her. These problems have persisted since 2020. PMHx: COPD, diabetes (on insulin) (last H1C 7), CHF (not sure grade or when last echo was but was told normal EF- sees Dr. Robin Meek at [facility]); hemachromatosis; orthostatic hypotension; hx of small bowel obstruction Quit smoking in January 2016 PSHx: Hand sx, total hyst, gerson BTs? No PAST MEDICAL HISTORY Updated and documented in EMR, reviewed during this appointment. Medical History[1] PAST SURGICAL HISTORY Updated and documented in EMR, reviewed during this appointment Surgical History[2] CURRENT MEDICATIONS Current Medications[3] ALLERGIES Penicillins and Morphine SOCIAL HISTORY Social History Socioeconomic History Marital status: Unknown Spouse name: Not on file Number of children: Not on file Years of education: Not on file Highest education level: Not on file Occupational History Not on file Tobacco Use Smoking status: Never Smokeless tobacco: Never Substance and Sexual Activity Alcohol use: Yes Comment: Alcoholic Drinks/day: Minimum alcohol consumption Drug use: Yes Comment: Drug use: Drug use Sexual activity: Not on file Other Topics Concern Not on file Social History Narrative Not on file Social Drivers of Health Financial Resource Strain: Not on file Food Insecurity: Not on file Transportation Needs: Not on file Physical Activity: Not on file Stress: Not on file Social Connections: Not on file Intimate Partner Violence: Not on file Housing Stability: Not on file FAMILY HISTORY Family history is as noted on the history intake form which was reviewed and scanned into [employer]. Negative for bleeding disorders, clotting disorders or anesthesia issues. SYSTEMS REVIEW A complete 14 point review of systems was completed on written assessment, was discussed/reviewed with the patient at this time and was negative except as noted in the HPI. PHYSICAL EXAMINATION Vital Signs: Vitals: 08/22/24 1439 BP: 114/78 Pulse: 88 Temp: 36.7 ??C (98.1 ??F) SpO2: 96% Weight: 81.8 kg (180 lb 5.4 oz) Height: 1.575 m (5' 2 ) Body mass index is 32.98 kg/m??. General: The patient is in no acute distress. She is well groomed and cooperative with the exam. GEN: Healthy appearing, alert, no acute distress SKIN: Normal color, texture; no rashes or lesions; grade IV abdominal pannus HEENT: Normocephalic, no signs of trauma, anicteric, neck with normal ROM PULM: Normal respiratory effort on room air, no audible stridor or wheeze CV: Regular rate and rhythm, palpable radial pulses PSYCH: Pleasant and normal affect NEURO: Alert and oriented x 3. Cranial nerves grossly intact, speech intact LYMPH: No palpable lymphadenopathy EXTREMITY: No cyanosis, clubbing, or edema. LYMPH: No palpable lymphadenopathy IMPRESSION/PLAN Luh Bosch is a 63 yo F with a PMHx of T2DM, COPD, CHF, hemachromatosis presenting for initial evaluation for excessive skin and subcutaneous tissue. We discussed options for surgical excision of the excess skin and subcutaneous tissue at this time. We discussed a panniculectomy as well as a fleurde lis abdominoplasty. At this time she does not have any postoperative imaging of her abdomen and she may have a small hernia which we are unable to palpate at this time therefore is necessary to obtain a CT scan of the abdomen and pelvis for operative planning and to ensure there are no hernias which would be injured during our procedure. This will also assess the integrity of her abdominal wall. Plan for CT A/P and to obtain records to for further operative planning - Need records from [facility] this will be obtained by our office staff The patient indicates understanding of these instructions and agrees with the plan [1] Past Medical History: Diagnosis Date Personal history of other diseases of the circulatory system History of hypertension Personal history of other diseases of the circulatory system History of rheumatic fever Personal history of other diseases of the circulatory system Personal history of cardiac murmur Personal history of other endocrine, nutritional and metabolic disease History of diabetes mellitus Personal history of other endocrine, nutritional and metabolic disease History of hyperlipidemia Personal history of other specified conditions History of vomiting [2] Past Surgical History: Procedure Laterality Date CHOLECYSTECTOMY N/A Cholecystectomy from [facility] HAND SURGERY N/A Hand Surgery from [facility] HYSTERECTOMY N/A Hysterectomy from [facility] [3] Current Outpatient Medications: famotidine (Pepcid) 20 MG tablet, 1 tab(s) orally once a day (at bedtime) for 90 days, Disp: , Rfl: Farxiga 10 MG tablet, Take 1 tablet by mouth Daily., Disp: , Rfl: fluticasone (Flovent HFA) 110 MCG/ACT inhaler, , Disp: , Rfl: fluticasone-salmeterol (Advair HFA) 115-21 MCG/ACT inhaler, every 12 hours., Disp: , Rfl: gabapentin (Neurontin) 100 MG capsule, every 12 hours., Disp: , Rfl: HumaLOG KWIKPEN 100 UNIT/ML injection pen, 4 units subcutaneously 3 times a day with meals for 30 days, Disp: , Rfl: Lantus 100 UNIT/ML injection vial, 1 (one) time each day at the same time., Disp: , Rfl: levothyroxine (Synthroid, Levoxyl) 50 MCG tablet, Take 1 tablet by mouth Daily., Disp: , Rfl: midodrine (Proamatine) 10 MG tablet, 1 TAB(S) ORALLY 3 TIMES A DAY NEEDED for 90 DAYS, Disp: , Rfl: montelukast (Singulair) 10 MG tablet, Take 1 tablet by mouth Daily., Disp: , Rfl: Cosigned by Tiago Noguera MD at 08/28/2024 2:15 PM EDT Associated attestation - Tiago Noguera MD - 08/28/2024 2:15 PM EDT I saw and evaluated the patient with the medical/SHIRT SEWER/PA student. I discussed the case with the medical/SHIRT SEWER/PA student and agree with the findings and plan as documented. I personally performed the Examand Medical Decision Making. documented in this encounter Plan of Treatment Scheduled Orders Name Type Priority Associated Diagnoses Orde r Schedule CT Abdomen Pelvis wo IV Contrast Imaging Routine Excessive and redundant skin and subcutaneous tissue Expected: 08/22/2024 (Approximate), Expires: 02/22/2026 documented as of this encounter Visit Diagnoses Diagnosis Excessive and redundant skin and subcutaneous tissue- Primary documented in this encounter Additional Health Concerns Assessment Noted Time A Body Mass Index follow-up plan has been documented for the patient 08/28/2024 2:16 PM EDT documented as of this encounter Care Teams Model And Mold Maker Relationship Specialty Start Date End Date Clarence Ram MD [address] [place] [address] PCP - General 08/28/20 documented as of this encounter
--- OUTSIDE RECORDS SUMMARY | 2024-09-30 05:30 | XMS_ITS ---
Author Organization [facility] PE D [place] Address [address] [place] [address] Care Team Providers Care Case Therapist Name Role Phone Clarence Ram Primary Care Provider [phone] Wendy Payne [phone] Allergies Allergen (clinical drug ingredient) Drug/Non Drug Allergy documented on EMR Reaction Allergy Type Onset Date Status Fish FISH (uncoded) Unknown Allergy Activ e hydromorphone Dilaudid Unknown Drug Allergy Act caro morphine Morphine Unknown Drug Allergy Active Penicillin Unknown Drug Allergy Active REASON FOR VISIT 3 Month F/U, still having muscle spasms Medications Medication SIG (Take, Route, Frequency, Duration) Notes Start Date End Date Status HumaLOG KwikPen 100 UNIT/ML 4 units subcutaneously 3 times a day with meals 09/28/2023 Active Prodigy No Coding Blood Gluc - TEST FOUR TIMES A DAY; Duration: 75 Active Lantus 100 unit/mL INJECT 40 UNITS SUBCUTANEOUSLY ONCE A DAY; Duration: 25 Active Ozempic (2 MG/DOSE) 8 MG/3ML 2mg Subcutaneous once a week; Duration: 28 days Active Potassium Chloride ER 10 mEq TAKE TWO CAPSULES BY MOUTH TWICE DAILY; Duration: 30 Active Farxiga 10 MG 1 tab(s) orally once a day; Duration: 90 days Active Gabapentin 100 mg TAKE 2 CAPSULES BY MOUTH 2 TIMES A DAY; Duration: 30 08/12/2024 Active MIDODRINE HYDROCHLORIDE 10 MG 1 TAB(S) ORALLY 3 TIMES A DAY NEEDED; Duration: 90 DAYS prn *Please review for potential replacement for e-prescription and drug interaction check* Active Bumetanide 1 MG 1 tab(s) orally 2 times a day; Duration: 90 days Active Levothyroxine Sodium 50 MCG 1 tab(s) orally once a day; Duration: 90 days Active Omeprazole 40 MG 1 cap(s) orally once a day; Duration: 90 days Active Montelukast Sodium 10 MG 1 tab(s) orally once a day; Duration: 90 days Active Atorvastatin Calcium 40 MG 1 tab(s) orally once a day; Duration: 90 days Active Aspirin Low Dose 81 MG TAKE ONE TABLET BY MOUTH ONCE A DAY Active Spironolactone 25 MG 2 tabs orally once a day; Duration: 90 days Active Magnesium Oxide 400 MG 1 tab(s) orally once a day; Duration: 30 day(s) Active Senna Plus 8.6-50 MG 1 tablet orally 2 times a day as needed for constipation; Duration: 30 days Active Diclofenac Sodium 1 % 2 grams applied topically 4 times a day to knees and prn; Duration: 30 days 04/06/2021 Active Cetirizine HCl 10 MG 1 tab(s) orally onc e a day; Duration: 30 days Active Famotidine 20 MG 1 tab(s) orally once a day (at bedtime); Duration: 90 days Active Calcium 600 + D 600 MG-20 MCG 1 TAB(S) ORALLY 2 TIMES A DAY; Duration: 30 DAY(S) *Please review and pick correct strength-formulat ion from [employer] options. If intended option is not shown, discontinue and re-order from Quick Search* Active Multivitamin - 1 tab(s) orally once a day Active Advair HFA 115 MCG-21 MCG 2 INH INHALED 2 TIMES A DAY *Please review and pick correct strength-formulat ion from [employer] Stories options. If intended option is not shown, discontinue and re-order from Quick Search* Active Dicyclomine HCl 20 MG 1 tab(s) orally every 6 hours as needed for stomach cramping or diarrhea; Duration: 10 days 07/26/2021 Active Acetaminophen 500 MG 1 tablet orally every 6 hours as needed for pain or fever 04/06/2021 Active tiZANidine HCl 2 MG 1 tablet Orally twice a day; Duration: 30 days 09/30/2024 Active Social History Tobacco Use: Social History Observation Description Date Details (start date - stop date) Former Smoker NA - NA Smoking: Question Answer Notes Are you a: former smoker How long has it been since you last smoked? 1-5 years Section Notes: stopped smoking 2015, smoked 42 years on average around 1/2 ppd Vital Signs Temperature 97.9 degrees Fahrenheit 10/01/19 25 Blood pressure systolic 96 mm Hg 10/01/19 25 Blood pressure diastolic 78 mm Hg 025 Heart Rate 80 /min 09/30/2024 Height 62 in 09/30/2024 Weight 176.4 lbs 09/30/2024 BMI 32.26 kg/m2 09/30/2024 Encounters Encounter Location Date Provider Diagnosis [facility] [place] [address] [place], [place] [address] 09/30/2024 Wendy Payne Muscle cramping R25. 2 ; Type 2 diabetes mellitus with other specified complication E11.69 ; MCFP (current) use of insulin Z79.4 ; Hypothyroidism E03.9 ; Nonalcoholic steatohepatitis (FULLER) K75.81 ; RLS (restless legs syndrome) G25.81 and Peripheral neuropathic pain M79.2 Assessments Encounter Date Diagnosis (ICD Code) Assessment Notes Treatment Notes Treatment Clinical Notes Section Notes 09/30/2024 Muscle cramping (ICD-10 - R25.2) lower extremities appear well perfused but if cramping continues would recommend LARRY's lower extremities. Continue good fluid intake and encoruaged regular stretching 09/30/2024 Type 2 diabetes mellitus with other specified complication (ICD-10 - E11.69) Recent labs were stable. goal A1C < 7. Eye exam UTD. Good candidate for diabetic shoes due to her recurring edema, callus formation, neuropathic pain. 09/30/2024 MCFP (current) use of insulin (ICD-10 - Z79.4) 09/30/2024 Hypothyroidism (ICD-10 - E03.9) continue replacement 09/30/2024 Nonalcoholic steatohepatitis (FULLER) (ICD-10 - K75.81) continue dietary and weight loss efforts 09/30/2024 RLS (restless legs syndrome) (ICD-10 - G25.81) low dose gabapentin 09/30/2024 Peripheral neuropathic pain (ICD-10 - M79.2) Plan Of Treatment Medication Medication Name Sig Start Date Stop Date Notes Methocarbamol 500 MG as directed Orally every 8 hours 08/15 tiZANidine HCl 2 MG 1 tablet Orally twic e a day; Duration: 30 days 09/30/2024 Next Appt Details Follow Up: 6 Weeks, Reason: Provider Name:Wendy Chahal ce, 11/11/2024 10:00:00 AM, [address], [place], [address], Progress Notes * HIRO LuhDOB:1960 ( 63 yo F)Acc No.[id number]:09/30/2024 Progress Notes Patient: Luh COSTA Provider: COBY Busby :1960 A ge:63 Y S ex:Female Date:09/30/2024 Address:[facility] , [facility], [place], [id number] Pcp:Clarence Ram Subjective: * Chief Complaints: * 1 . 3 Month F/U. 2. Still having muscle spasms. * HPI: g en: 63-year-old female presents today for chronic disease FU Acute concern of recurring muscle spasms over the past few weeks, now in her thighs, with rest/after activity. Also notes she is now sexually active after many years of abstinence and wonders if this might be contributing. Reports she is staying hydrated, 50oz fluid daily, and eating sufficient calories but her weight continues to trend downward, on GLP1I. Is taking diuretic as prescribed and reports edema when she's tried recently to lower her dose of diuretic Checks blood sugars at home avg 90-130. Checks feet daily for wounds or ulcers. Following routinely with Retina specialist. Tolerating statin therapy. Has not tolerated ACEI/ARB due to lower blood pressures Following routinely with pulmonology, podiatry, asthma/allergy and retina specialist. * ROS: R ESPIRATORY: Reviewed, No Symptoms Reported: Y es. C ARDIOLOGY: Dizziness y es, W orse when standing from sitting. L eg edema y es, i mproving with RX. C ONSTITUTIONAL: no L oss of appetite. n o F ever. W eakness?yes. F atigue y es. D ERMATOLOGY: Reviewed, No Symptoms Reported: Y es. E NDOCRINOLOGY: no S leep disturbance. D iabetes y es. ? E NT: no C old. G ASTROENTEROLOGY: Reviewed, No Symptoms Reported: Y es. H EMATOLOGY/LYMPH: Reviewed, No Symptoms Reported: Y es. M USCULOSKELETAL: muscle cramps y es. n o b ack pain. ? U ROLOGY: Reviewed, No Symptoms Reported: Y es. 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 * Surgical History: c holecystectomy , repair left hand fx , total hysterectomy , colonoscopy-benign polyp , laser surgery-lt eye 12/2014, laser surgery-rt eye 03/2015, laser surgery-rt eye 05/2015, eye injections for macular swelling , RGD 05/2018, Heart Cath 08/2018, Cataract with implant x 2 05/2023. * Hospitalization/Major Diagno stic Procedure: c hest pains , abd pain/bowel obstruction , bowel obstruction 01/2016, [facility]- colitis, hypokalemia 05/2018, [facility]-chest pains 08/2018, [facility]-hypokelemia 10/2019, [facility] - hyponatremia, anasarca 08/2020, [facility] - cirrhosis and complications 2020. * Family History: F ather: , diabetes, hypertension, hyperlipidemia. M other: , hypercholesterolemia, hypertension, hypothyroidism. P aternal Grand Father: , stroke, cad. P aternal Grand Mother: , diabetes, hypertension, aaa. M aternal Grand Father: , lung cancer. M aternal Grand Mother: , brain aneurysm. P aternal uncle: alive. P aternal aunt: , stroke. M aternal aunt: , brain aneurysm. S iblings: alive, hypothyroid, hypertension. C hildren: alive, diabetes-daughter, blebs -rt upper mid lobes removed.?2 sister(s) . 1 son(s) , 1 daughter(s) . . 1 st cousin from diabetes complications. * Social History: S moking A re you a: f ormer smoker, H ow long has it been since you last smoked??1-5 years. R ecreational drug use: no. Exercise: no. Home smoke detector use: yes. Caffeine: yes, frequency:16 oz weekly. Living Will: No. Alcohol: no. Sexually active: no. Travel outside [place]: no. Occupation: disabled. stopped smoking 2015, smoked 42 years on average around 1/2 ppd. * Medications: T aking Advair HFA 115 MCG-21 MCG AEROSOL 2 INH INHALED 2 TIMES A DAY , Notes to Pharmacist: *Please review and pick correct strength-formulation from [employer] Stories options. If intended option is not shown, discontinue and re-order from Quick Search*, Taking Multivitamin - Tablet 1 tab(s) orally once a day , Taking Calcium 600 + D 600 MG-20 MCG TABLET 1 TAB(S) ORALLY 2 TIMES A DAY , Notes to Pharmacist: *Please review and pick correct strength-formulation from Blue [employer] Stories options. If intended option is not shown, [...] tab(s) orally once a day , Taking Aspirin Low Dose 81 MG Tablet Delayed Release TAKE ONE TABLET BY MOUTH ONCE A DAY , Taking Atorvastatin Calcium 40 MG Tablet 1 tab(s) orally once a day , Taking Montelukast Sodium 10 MG Tablet 1 tab(s) orally once a day , Taking Omeprazole 40 MG Capsule Delayed Release 1 cap(s) orally once a day , Taking Spironolactone [...] prn *Please review for potential replacement for e- prescription and drug interaction check*, Taking Gabapentin 100 mg Capsule TAKE 2 CAPSULES BY MOUTH 2 TIMES A DAY , Taking Farxiga 10 MG Tablet 1 tab(s) orally once a day , Taking Ozempic (2 MG/DOSE) 8 MG/3ML Solution Pen-injector 2mg Subcutaneous once a week , Taking Lantus 100 unit/mL Solution INJECT 40 UNITS SUBCUTANEOUSLY ONCE A DAY , Taking Methocarbamol 500 MG Tablet as directed Orally every 8 hours As needed, 1-2 tablets as needed muscle spasm., Taking Prodigy No Coding Blood Gluc - Strip TEST FOUR TIMES A DAY , Taking HumaLOG KwikPen 100 UNIT/ML Solution Pen-injector 4 units subcutaneously 3 times a day with meals , Taking Potassium Chloride ER 10 mEq Capsule Extended Release TAKE TWO CAPSULES BY MOUTH TWICE DAILY , Medication List reviewed and reconciled with the patient * Allergies: M orphine, Penicillin, Dilaudid, FISH. Objective: * Vitals: N urse: jl, Pain: 0, Temp: 97.9, RR: 18, HR: 80, BP: 96/78, Ht: 62, Wt: 176.4, BMI:32.26. * Examination: G eneral Examination: General P leasant and Cooperative, NAD on RA,. Heart: R egular Rate and Rhythm, no murmur, rubs or gallops. Lungs: c lear to auscultation,. Abdomen: S oft, NTND, BSNA, No organomegaly or peritoneal signs.. Skin: w ithout acute rashes. Peripheral pulses: d iminished, bilaterally symetrical. 1+ pp. Extremities: n o foot lesions,, sensations diminished, varicose veins, mild callus formation bilat heels. neck s upple,, no thyromegaly,, no lymphadenopathy,. Psych N ormal Mood/Affect. Assessment: * Assessment: 1. M uscle cramping - R25.2 (Primary) 2 . T ype 2 diabetes mellitus with other specified complication - E11.69 3 . L roby term (current) use of insulin - Z79.4 4 . H ypothyroidism - E03.9 5 . N onalcoholic steatohepatitis (FULLER) - K75.81 6 . R LS (restless legs syndrome) - G25.81 ?7. P eripheral neuropathic pain - M79.2 Plan: * Treatment: 2. T ype 2 diabetes mellitus with other specified complication Clinical Notes: Recent labs were stable. goal A1C < 7. Eye exam UTD. Good candidate for diabetic shoes due to her recurring edema, callus formation, neuropathic pain. 3. H ypothyroidism Clinical Notes: continue replacement 4. N onalcoholic steatohepatitis (FULLER) Clinical Notes: continue dietary and weight loss efforts 5. R LS (restless legs syndrome) Clinical Notes: low dose gabapentin * Follow Up: 6 Weeks * * Sign off status: Completed true * Provider: COBY Busby Date: 0 09/30/2024 Generated for Tomasa alarcon/Christian/Bekaitting on: 0 10/17/2024 01:13 PM EDT History and Physical Notes * Examination Category Sub-Category Detail Notes Category Not es General Examination Heart: Regular Rate and Rhythm, no murmur, rubs or gallops Lungs: clear to auscultatio n, Abdomen: Soft, NTND, BSNA, No organomegaly or peritoneal signs. Extremities: no foot lesions,, se nsations diminished, varicose veins, mild callus formation bilat heels Skin: without acute rashes Peripheral pulses: diminished, bilatera lly symetrical. 1+ pp neck supple,, no thyromeg marsha,, no lymphadenopathy, General Pleasant and Coopera tive, NAD on RA, Psych Normal Mood/Affect
--- OUTSIDE RECORDS SUMMARY | 2024-10-09 07:00 | XMS_ITS ---
Author Organization [facility] D [place] Address [address] [place] [address] Care Team Providers Care Sustainable Design Coordinator Name Role Phone Clarence Ram Primary Care Provider Damaris Cortezah Unavailable [phone] Allergies Allergen (clinical drug ingredient) Drug/Non Drug [...] date:10/14/2024 02:50:35 PM Interpretation: Performing Lab:CB, [facility] [id number] [facility] [id number] Ajay Culver Notes/Report: CULTURE, URINE, ROUTINE SEE NOTE CULTURE, URINE, ROUTINE Micro Number: [id number] Test Status: Final Specimen Source: Urine Specimen [...] review and pick correct strength-formulat ion from [employer] options. If intended option is not shown, [...] review and pick correct strength-formulat ion from [employer] options. If intended option is not shown, [...] 10/09/2024 Encounters Encounter Location Date Provider Diagnosis [facility] P[facility] [place] [address] [facility] [address] [place] [address] 10/09/2024 Wendy Diego Lower abdominal pain R10.30 and Viral gastroenteritis A08.4 Assessments Encounter Date Diagnosis (ICD Code) Assessment Notes Treatment Notes Treatment Clinical Notes Section Notes 10/09/2024 Lower abdominal pain (ICD-10 - R10.30) 10/09/2024 Viral gastroenteritis (ICD-10 - A08.4) Plan Of Treatment Medication Medication Name Sig Start Date Stop Date Notes Promethazine HCl 12.5 MG 1 tablet as nee ded Orally every 8 hours; Duration: 5 days 10/09/2024 Next Appt Details Provider Name:Wendy shrestha, 11/11/2024 10:00:00 AM, [address] [facility], [address], [place], [address], Progress Notes * Luh BOSCHDOB:1960 ( 63 yo F)Acc No.[id number]:10/09/2024 Progress Notes Patient: Luh COSTA Provider: ANALISA Mad[place] :1960 A ge:63 Y S ex:Female Date:10/09/2024 Address:[address] [place] [address], [address] [place], [id number] Pcp:Clarence Ram Subjective: * Chief Complaints: * [...] *Please review and pick correct strength-formulation from [employer] options. If intended option is not shown, [...] rhonchi, Good air movement,. Abdomen: S oft, nontender, nondistended, no guarding or peritoneal signs.. Neurologic Exam: C N I-XII intact, No focal neurological deficits, equal manager video games strength in hands bilaterally, moving all extremities equally, normal lower leg strength bilaterally, equal dorsi and plantarflexion bilaterally. neck s upple, n o lymphadenopathy,. Psych [...] Will you please call and inform?Sam Arzate Marily 10/14/2024 02:50:27 PM EDT > pt notifed [...] >Wendy Cortez 10/09/2024 12:36:53 PM EDT > * Procedure Codes: 8 1002 URINALYSIS, Modifiers: QW * * Electronic signature of Kiana Cortez PA-C on 10/17/2024 at 01:13 PM EDT Sign off status: Pending * Provider: ANALISA Mad[place] Date: 10/09/2024 Generated for Tomasa alarcon/Christian/eTransmitting on: 10/17/2024 01:13 PM EDT History and Physical [...] or rhonchi, Good air movement, Abdomen: Soft, nontender, non distended, no guarding or peritoneal signs. Neurologic Exam: CN I-XII intact, No focal neurological deficits, equal manager video games strength in hands bilaterally, moving all extremities equally, normal lower leg strength bilaterally, equal dorsi and plantarflexion bilaterally Oral cavity: Moist membranes Chest: normal shape and exp ansion neck supple, no lymphaden opathy, General Pleasant and Coopera tive, NAD Psych Normal Mood/Affect
--- OUTSIDE RECORDS SUMMARY | 2024-10-17 13:12 | XMS_ITS | Encounter Summary ---
Author Organization [employer] ([place], [place], [place], [place]) Address [address] [place] [address] Care Team Providers Care Funeral Car Driver Name Role Phone Unavailable Primary Care Provider Unavailabl e Encounter Details Date Type Department Care Team (Late st Contact Info) Description 10/09/2020 Transcribed Document [facility] [place] [address] [place] [address] ProviderRadha MD [address] [place] [address] Social History Tobacco Use Types Packs/Day Years Used Date Smoking Tobacco: Never Assessed Comments Unknown Sex and Gender Information Value Date Recorded Sex Assigned at Not on file Legal Sex Female 7:21 PM CDT Gender Identity Not on file Sexual Orientation Not on file documented as of this encounter Miscellaneous Notes * Cerner Conversion Note - Historical ProviderMD - 10/09/2020 4:24 PM CDT Attempt to Treat, PT Entered On: 10/09/2020 16:25 EDT Performed On: 10/09/2020 16:24 EDT by JO-ANN MILES PTA Attempt to Treat Unable to Treat Due To : Patient Refusal Inability to Treat Comment : pt refused due to aggitation, will try back as time permits Notification : JO-ANN Duron PTA - 10/09/2020 16:24 EDT documented in this encounter Plan of Treatment Not on file documented as of this encounter Visit Diagnoses Not on filedocumented in this encounter
--- OUTSIDE RECORDS SUMMARY | 2024-10-17 13:12 | XMS_ITS | Encounter Summary ---
Author Organization [employer] ([place], [place], [place], [place]) Address [address] [place] [address] Care Team Providers Care Wire Spring Relay Adjuster Name Role Phone Unavailable Primary Care Provider Unavailabl e Encounter Details Date Type Department Care Team (Late st Contact Info) Description 10/01/2020 Transcribed Document [facility] [place] [address] [place] [address] ProviderRadha MD [address] [place] [address] Social History Tobacco Use Types Packs/Day Years Used Date Smoking Tobacco: Never Assessed Comments Unknown Sex and Gender Information Value Date Recorded Sex Assigned at Not on file Legal Sex Female 7:21 PM CDT Gender Identity Not on file Sexual Orientation Not on file documented as of this encounter Miscellaneous Notes * Cerner Conversion Note - Radha ProviderMD - 10/01/2020 1:57 AM CDT Rapid Response Team Documentation Entered On: 10/01/2020 2:05 EDT Performed On: 10/01/2020 1:57 EDT by JONATHAN MADDOX RN Rapid Response Event Procedure w/Anesthesia 24 Hr Prior Event : No JONATHAN MADDOX RN - 10/01/2020 2:09 EDT Time Rapid Response Team Called : 10/01/2020 0:47 EDT Rapid Response Team Arrival Time : 10/01/2020 0:49 EDT Rapid Response Team Event End Time : 10/01/2020 1:58 EDT Rapid Response Event Intiated By : Hospital Staff Rapid Response Team Initiation Reason : Change in vital signs Rapid Response Event Location Type : Other: [facility] Room 425 JONATHAN MADDOX RN - 10/01/2020 1:57 EDT Rapid Response Team Initiation Reason Details : Onset of hypotension. Cause not obvious at this time. Extreme edema noted. Mentation intact. UOP 100 ml / 6 hrs. MD contacted by primary RN and albumin and midodrine ordered. JONATHAN MADDOX RN - 10/01/2020 2:09 EDT Rapid Response Admission Diagnosis : Generalized edema Generalized edema Rapid Response Medical Background : History of obstructive sleep apnea (Medical) Rapid Response Allergies : Substance Category Reactions Severity Dilaudid Drug Fish Drug High morphine Drug penicillin Drug Rapid Response Recent Vital Signs : 10/01/2020 01:56 Systolic Blood Pressure 82 10/01/2020 01:56 Diastolic Blood Pressure 51 10/01/2020 01:56 Heart Rate Monitored 96 09/30/2020 17:56 Respiratory Rate 20 09/30/2020 23:18 Temperature, Fahrenheit 97.6 09/30/2020 17:56 Oxygen Saturation 99 Rapid Response Recent Lab Results : 10/01/2020 01:03 Sodium Level LOW 131 (136-146) 10/01/2020 01:03 Potassium Level 3.7 (3.5-5.1) 10/01/2020 01:03 Calcium Level LOW 8.0 (8.4-10.1) 10/01/2020 00:12 Glucose POC2 HI 165 (70-110) 10/01/2020 01:03 Chloride Level LOW 97 (102-112) 10/01/2020 01:03 Carbon Dioxide Level 24 (21-32) 10/01/2020 01:03 Blood Urea Nitrogen HI 58 (7-22) 10/01/2020 01:03 Creatinine Level 0.80 (0.55-1.02) 09/29/2020 23:26 PT HI 12.3 (9.2-12.0) 09/29/2020 23:26 INR 1.2 (0.9-1.2) 09/30/2020 05:50 Hgb 11.8 (11.2-15.7) 09/30/2020 05:50 Hct 35.0 (34.1-44.9) 09/30/2020 05:50 RBC 4.34 (3.93-5.22) 09/30/2020 05:50 WBC HI 11.0 (4.5-10.5) 09/30/2020 05:50 Platelet Count HI 468 (163-369) 09/30/2020 10:41 Lactic Acid Level CRIT 5.3 (0.4-2.0) Weight/BMI : Clinical Weight/BMI CLINICALWEIGHT: 157.27 kg (09/29/20 22:20:00) Body Mass Index: 63.4 kg/m2 Critical (09/29/20 22:20:00) Rapid Response Team Event Interventions : Additional Lab Testing Patient Condition at End of Event : No S/S of Acute Distress Patient Disposition Post Event : No change in location/level of care Rapid Response Wire Spring Relay Adjuster #1 : JONATHAN MADDOX RN Rapid Response Wire Spring Relay Adjuster #2 : FLORENCE ARIZA CRT LACY, ROBERT J, RN - 10/01/2020 1:57 EDT Rapid Response Systems Assessment Oxygen Saturation : 96 % Breath Sounds Auscultated : Anterior, Laterally All Lobes Breath Sounds : Diminished Cardiovascular Symptoms : None Heart Sounds : S1/S2, Distant Heart Rhythm : Regular Neck Vein Distention : Unable to visualize Brii Best Motor Response : Obey commands Brii Best Verbal Response : Oriented Brii Eye Opening Response : Spontaneous Brii Coma Score : 15 Level of Consciousness : Alert, Awake Orientation : Oriented x 4 Affect/Behavior : Appropriate, Calm, Cooperative JONATHAN MADDOX RN - 10/01/2020 2:09 EDT Oxygen Therapy Mode : Room air JONATHAN MADDOX RN - 10/01/2020 1:57 EDT DCP GENERIC CODE Edema, Lower Arm, Right : 3+ moderate/6 mm JONATHAN MADDOX RN - 10/01/2020 1:57 EDT documented in this encounter Plan of Treatment Not on file documented as of this encounter Visit Diagnoses Not on filedocumented in this encounter
--- OUTSIDE RECORDS SUMMARY | 2024-10-17 13:12 | XMS_ITS | Encounter Summary ---
Author Organization [employer] ([place], [place], [place], [place]) Address [address] [place] [address] Care Team Providers Care Ship/Rec/Doc Control Name Role Phone Unavailable Primary Care Provider Unavailabl e Encounter Details Date Type Department Care Team (Late st Contact Info) Description 10/09/2020 Transcribed Document [facility] [place] [address] [place] [address] ProviderRadha MD [address] [place] [address] Social History Tobacco Use Types Packs/Day Years Used Date Smoking Tobacco: Never Assessed Comments Unknown Sex and Gender Information Value Date Recorded Sex Assigned at Not on file Legal Sex Female 7:21 PM CDT Gender Identity Not on file Sexual Orientation Not on file documented as of this encounter Miscellaneous Notes * Cerner Conversion Note - Historical ProviderMD - 10/09/2020 5:00 PM CDT Chart Check - Review Order Profile Entered On: 10/09/2020 17:01 EDT Performed On: 10/09/2020 17:00 EDT by Alexsandra Alfred RN Chart Check Powerplans Initiated/Discontinued as Appropriate : Yes Alexsandra Alfred RN - 10/09/2020 17:01 EDT documented in this encounter Plan of Treatment Not on file documented as of this encounter Visit Diagnoses Not on filedocumented in this encounter
--- OUTSIDE RECORDS SUMMARY | 2024-10-17 13:12 | XMS_ITS | Encounter Summary ---
Author Organization [employer] ([place], [place], [place], [place]) Address [address] [place] [address] Care Team Providers Care Hand Sign Writer Name Role Phone Unavailable Primary Care Provider Unavailabl e Encounter Details Date Type Department Care Team (Late st Contact Info) Description 10/09/2020 Transcribed Document [facility] [place] Family [place] [address] [place] [address] ProviderRadha MD [address] [place] [address] Social History Tobacco Use Types Packs/Day Years Used Date Smoking Tobacco: Never Assessed Comments Unknown Sex and Gender Information Value Date Recorded Sex Assigned at Not on file Legal Sex Female 7:21 PM CDT Gender Identity Not on file Sexual Orientation Not on file documented as of this encounter Miscellaneous Notes * Cerner Conversion Note - Historical ProviderMD - 10/09/2020 2:00 AM CDT Manager Hi Details Entered On: 10/09/2020 1:08 EDT Performed On: 10/09/2020 2:00 EDT by Yovana Whelan Non Emp RN Order Details Transport Mode Order Detail : Bed (including specialty) Isolation Precautions Order Detail : Contact precautions, Enteric precautions, Standard Precautions Order Detail : 0 IV Order Detail : 1 Oxygen Order Detail : 1 Nurse Collect Order Detail : 1 Lift/Transfer : Maximal assist Central Line Order Detail : No Room Service : Appropriate Arterial Line : No Patient Needs Meds Crushed/Liquid : No Yovana Whelan Non Emp RN - 10/09/2020 1:08 EDT documented in this encounter Plan of Treatment Not on file documented as of this encounter Visit Diagnoses Not on filedocumented in this encounter
--- OUTSIDE RECORDS SUMMARY | 2024-10-17 13:12 | XMS_ITS | Encounter Summary ---
Author Organization [employer] ([place], [place], [place], [place]) Address [address] [place] [address] Care Team Providers Care Dowel Pin Worker Name Role Phone Unavailable Primary Care Provider Derrell rose Encounter Details Date Type Department Care Team (Late st Contact Info) Description 10/09/2020 Transcribed Document [facility] [place] Family Medicine [address] [place] [address] ProviderRadha MD [address] [place] [address] Social History Tobacco Use Types Packs/Day Years Used Date Smoking Tobacco: Never Assessed Comments Unknown Sex and Gender Information Value Date Recorded Sex Assigned at Not on file Legal Sex Female 7:21 PM CDT Gender Identity Not on file Sexual Orientation Not on file documented as of this encounter Miscellaneous Notes * Cerner Conversion Note - Radha Reed MD - 10/09/2020 1:06 PM CDT Patient: L[facility] BOSCH Age: 59 years Sex: Female : 1960 Associated Diagnoses: None Author: KIERSTEN COLEY DO Basic Information Date of encounter 10/09/20 Patient is awake and alert no complaints no nausea no diarrhea Health Status Allergies: Allergic Reactions (Selected) High Fish- No reactions were documented. Severity Not Documented Dilaudid- No reactions were documented. Morphine- No reactions were documented. Penicillin- No reactions were documented., Allergies (4) Active Reaction Fish None Documented Dilaudid None Documented morphine None Documented penicillin None Documented Current medications: (Selected) Inpatient Medications Ordered Bumex: 1 mg, Oral, BID Dulera 200 mcg-5 mcg/inh inhalation aerosol: 1 Puff, Inhalation, BID DuoNeb 0.5 mg-2.5 mg/3 mL inhalation solution: 3 mL, Nebulized Inhalation, RT_Q6H, PRN: Shortness of Breath Almaz-Q: 1 Cap, Oral, Daily Isopto Tears: 1 Drop, Eyes Both, QID Lantus: 10 Units, SubCutaneous, Daily Lipitor: 40 mg, Oral, Daily Lovenox: 40 mg, SubCutaneous, [id number] MiraLax: 17 Gram, Oral, Daily, PRN: Constipation Pepcid: 20 mg, Oral, Daily Phenergan: 6.25 mg, IntraVENous, Q6H, PRN: Nausea Roxicodone: 5 mg, Oral, Q4H, PRN: Pain (Moderate 4-6) Singulair: 10 mg, Oral, Daily Tums: 500 mg, Oral, BID, PRN: Heartburn Tylenol: 650 mg, Oral, Q4H, PRN: Fever Tylenol: 650 mg, Oral, Q4H, PRN: Pain (Mild 1-3) Zofran: 4 mg, IV Push, Q4H, PRN: Nausea calcium gluconate + Sodium Chloride 0.9% intravenous solution 100 mL: 2 Gram, 20 mL, 120 mL/Hr, IV Piggyback, Daily, PRN: Other (See Comment) calcium gluconate + Sodium Chloride 0.9% intravenous solution 100 mL: 2 Gram, 20 mL, 120 mL/Hr, IV Piggyback, Q12H, PRN: Other (See Comment) calcium gluconate: 1 Gram, 10 mL, 60 mL/Hr, IV Piggyback, Daily, PRN: Other (See Comment) insulin lispro sliding scale: Scale B:, SubCutaneous, AC and at Bedtime insulin lispro: 4 Units, SubCutaneous, TID With Meals levothyroxine: 75 mcg, Oral, Daily magnesium sulfate: 2 Gram, 50 mL, 25 mL/Hr, IV Piggyback, Daily, PRN: Other (See Comment) magnesium sulfate: 2 Gram, 50 mL, 25 mL/Hr, IV Piggyback, Q2H, PRN: Other (See Comment) melatonin: 3 mg, Oral, At Bedtime, PRN: Insomnia midodrine: 10 mg, Oral, TID With Meals potassium chloride 10 mEq/50 mL intravenous solution: 10 mEq, 50 mL, 50 mL/Hr, IV Piggyback, Q1H, PRN: Other (See Comment) potassium chloride 20 mEq oral tablet, extended release: 20 mEq, 1 Tab, Oral, Q2H, PRN: Other (See Comment) potassium chloride 20 mEq oral tablet, extended release: 60 mEq, 3 Tab, Oral, Q2H, PRN: Other (See Comment) sodium phosphate: 15 mMole, 5 mL, 50 mL/Hr, IV Piggyback, Daily, PRN: Other (See Comment) sodium phosphate: 15 mMole, 5 mL, 50 mL/Hr, IV Piggyback, Q6H, PRN: Other (See Comment) vancomycin oral solution: 250 mg, Oral, Q6H Documented Medications Documented Advair HFA 115 mcg-21 mcg/inh inhalation aerosol: 2 Puff, Inhalation, BID, 0 Refill(s) FiberCon 625 mg oral tablet: 1 Tab, Oral, BID, 0 Refill(s) HumaLOG 100 units/mL injectable solution: SubCutaneous, AC and at Bedtime, Sliding Scale Insulin: use as directed, 10 mL, 0 Refill(s) Multiple Vitamins oral tablet: 1 Tab, Oral, Daily, 30 Tab, 0 Refill(s) ZyrTEC 10 mg oral tablet: 1 Tab, Oral, Daily, 0 Refill(s) acetaminophen 500 mg oral tablet: 1 Tab, Oral, Q4H, PRN: for pain/fever, 24 Tab, 0 Refill(s) atorvastatin 40 mg oral tablet: 1 Tab, Oral, At Bedtime, 0 Refill(s) bumetanide 1 mg oral tablet: 1 Tab, Oral, Daily, 0 Refill(s) levothyroxine 75 mcg (0.075 mg) oral tablet: 1 Tab, Oral, Daily, 60 Tab, 0 Refill(s) nystatin 100,000 units/g topical powder: 1 Application, Topical, BID, apply to affected areas as directed, PRN: Other (See Comment), 15 Gram, 0 Refill(s) omeprazole 40 mg oral delayed release capsule: 1 Cap, Oral, Daily, before a meal, 30 Cap, 0 Refill(s) Problem list: Medical History of obstructive sleep apnea / IMO [id number] / Confirmed, Active Problems (6) Diabetes mellitus GERD (gastroesophageal reflux disease) History of obstructive sleep apnea HLD (hyperlipidemia) Hypothyroidism Morbid obesity Physical Examination VS/Measurements Vitals Signs (last 24 hrs) Last Charted Minimum Maximum Temp 98.4 (CLAUDIA 25 11:05) 97.9 (CLAUDIA 24 17:37) 98.2 (CLAUDIA 24 14:45) Mon HR 92 (CLAUDIA 25 11:05) 83 (CLAUDIA 24 14:45) 94 (CLAUDIA 25 03:07) Resp Rate 20 (SEP 25 05:46) 16 (CLAUDIA 24 14:45) 20 (SEP 25 05:46) SBP 138 (CLAUDIA 25 11:05) 95 (SEP 25 05:46) 138 (CLAUDIA 25 11:05) DBP 80 (CLAUDIA 25 11:05) L 58 (SEP 25 05:46) 80 (CLAUDIA 25 11:05) MAP 95 (SEP 25 11:05) 71 (SEP 25 03:07) 95 (SEP 25 11:05) SpO2 94 (OCT 09 05:46) 94 (SEP 25 03:07) 99 (CLAUDIA 24 19:56) General: Alert and oriented, No acute distress, morbid obesity generalized anasarca. Eye: Pupils are equal, round and reactive to light, Extraocular movements are intact. HENT: Normocephalic, Oral mucosa is moist. Respiratory: Respirations are non-labored, Breath sounds are equal, Symmetrical chest wall expansion. Cardiovascular: Normal rate, Regular rhythm. Gastrointestinal: Soft, Non-tender, obese with large pannus. Integumentary: Warm, Dry, peripheral edema. +3 edema Neurologic: Alert, Oriented, No focal deficits. Psychiatric: Cooperative, Appropriate mood & affect. Review / Management Labs reviewed. Results review: Labs (Last four charted values) WBC 7.7 (CLAUDIA 21) 8.8 (CLAUDIA 20) 9.4 (CLAUDIA 19) 10.4 (CLAUDIA 18) HB L 8.6 (CALUDIA 21) L 8.8 (CLAUDIA 20) L 9.8 (CLAUDIA 19) L 9.5 (CLAUDIA 18) HCT L 27.2 (CLAUDIA 21) L 26.9 (CLAUDIA 20) L 30.6 (CLAUDIA 19) L 28.2 (CLAUDIA 18) Plt 300 (CLAUDIA 21) 315 (CLAUDIA 20) H 443 (CLAUDIA 19) H 443 (CLAUDIA 18) Na 142 (CLAUDIA 25) 141 (CLAUDIA 24) 141 (CLAUDIA 23) 140 (CLAUDIA 22) K 3.5 (CLAUDIA 25) 3.9 (CLAUDIA 24) 3.8 (CLAUDIA 23) 4.2 (CLAUDIA 22) Cl 106 (CLAUDIA 25) 106 (CLAUDIA 24) 107 (CLAUDIA 23) 107 (CLAUDIA 22) CO2 28 (CLAUDIA 25) 29 (CLAUDIA 24) 28 (CLAUDIA 23) 27 (CLAUDIA 22) BUN H 28 (CLAUDIA 25) H 29 (CLAUDIA 24) H 32 (CLAUDIA 23) H 36 (CLAUDIA 22) Cr L 0.50 (CLAUDIA 25) L 0.40 (CLAUDIA 24) L 0.30 (CLAUDIA 23) L 0.50 (CLAUDIA 22) Glu R 90 (CLAUDIA 25) 105 (CLAUDIA 24) L 70 (CLAUDIA 23) H 118 (CLAUDIA 22) Ca L 8.3 (CLAUDIA 25) 8.6 (CLAUDIA 24) L 8.1 (CLAUDIA 23) L 8.3 (CLAUDIA 22) Lactic C 5.3 (CLAUDIA 16) C 5.7 (CLAUDIA 16) C 5.6 (CLAUDIA 15) PT H 12.3 (CLAUDIA 15) INR 1.2 (CLAUDIA 15) AST H 58 (CLAUDIA 16) H 63 (CLAUDIA 15) ALT 29 (CLAUDIA 16) 32 (CLAUDIA 15) ALK P H 305 (CLAUDIA 16) H 333 (CLAUDIA 15) T Bili 0.6 (CLAUDIA 16) 0.3 (CLAUDIA 15) PTN L 4.5 (CLAUDIA 16) L 4.6 (CLAUDIA 15) ALB L 1.6 (CLAUDIA 25) L 1.6 (CLAUDIA 19) L 2.0 (CLAUDIA 18) L 1.0 (CLAUDIA 16) . Impression and Plan Distributive shock: due to 3rd spacing/lack of intravascular solute/oncotic pressure/wean pressors/on midodrine/add albumin today. ECHO with normal EF. and on midodrine (weaned off pressors); has had multiple doses albumin. albumin levels remain low, can consider further infusions of albumin as needed, trial bumex po C.diff enteritis: increase oral vanc dosing started overnight to 250 qid. Complete the course. Added probiotic. Diarrhea resolved Hyponatremia, gross volume overload, anasarca -Na better and normalised; pt remains grossly volume overloaded; bumex initiated /24 Hypoalbuminemia with anasarca: Had 24 hour urine but no evidence of nephrotic syndrome. nephrology s/o severe protein calorie malnutrition: Patient admits to very restrictive (800) calorie diet. Added supplements. possible acute cystitis; may be contaminated; - urine with WBC clumps. UA noted, Culture with yeast . Off abx with c.diff as well. CXR with opacities likely with fluid overload with anasarca. Type 2 diabetes mellitus,with A1c at 6.2% Hyperlipidemia - resume statin Hypothyroidism - normal TSH, resume synthroid GERD - continue home PPI Morbid Obesity, complicating all aspects of care. BMI: 63.4 DVT prophylaxis: on lovenox Disposition: Complete po vancomycin course for 14 days. Discussed with patient,and CM/continue PT as tolerated. She is medically ready but no rehab bed offers yet. Time spent with above 25 minutes Electronically signed by Vincent Miller Conversion Client Engagement Specialist Cerner at 08/02/2022 6:08 PM CDT documented in this encounter Plan of Treatment Not on file documented as of this encounter Visit Diagnoses Not on filedocumented in this encounter
--- OUTSIDE RECORDS SUMMARY | 2024-10-17 13:12 | XMS_ITS | Encounter Summary ---
Author Organization [employer] ([place], [place], [place], [place]) Address [address] [place] [address] Care Team Providers Care Drug Inspector Name Role Phone Unavailable Primary Care Provider Unavailabl e Encounter Details Date Type Department Care Team (Late st Contact Info) Description 10/01/2020 Transcribed Document [facility] [place] Family Medicine [address] [place] [address] ProviderRadha MD [address] [place] [address] Social History Tobacco Use Types Packs/Day Years Used Date Smoking Tobacco: Never Assessed Comments Unknown Sex and Gender Information Value Date Recorded Sex Assigned at Not on file Legal Sex Female 7:21 PM CDT Gender Identity Not on file Sexual Orientation Not on file documented as of this encounter Miscellaneous Notes * Cerner Conversion Note - Historical ProviderMD - 10/01/2020 9:25 AM CDT Attempt to Treat, PT Entered On: 10/01/2020 12:31 EDT Performed On: 10/01/2020 9:25 EDT by JR DILLON, PT Attempt to Treat Unable to Treat Due To : Patient on hold Inability to Treat Comment : Pt transferred to CTVU 6 due to hypotension and on HOLD for PT today per [id number] Neves, PT - 10/01/2020 12:30 EDT Electronically signed by Angela [facility] Conversion [employer] Officer Cerner at 08/02/2022 6:02 PM CDT documented in this encounter Plan of Treatment Not on file documented as of this encounter Visit Diagnoses Not on filedocumented in this encounter
--- OUTSIDE RECORDS SUMMARY | 2024-10-17 13:12 | XMS_ITS | Encounter Summary ---
Author Organization [employer] ([place], [place], [place], [place]) Address [address] [place] [address] Care Team Providers Care Sales Representative Door To Door Name Role Phone Unavailable Primary Care Provider Derrell rose Encounter Details Date Type Department Care Team (Late st Contact Info) Description 10/01/2020 Transcribed Document [facility] [place] Family Medicine [address] [place] [address] ProviderRadha MD [address] [place] [address] Social History Tobacco Use Types Packs/Day Years Used Date Smoking Tobacco: Never Assessed Comments Unknown Sex and Gender Information Value Date Recorded Sex Assigned at Not on file Legal Sex Female 7:21 PM CDT Gender Identity Not on file Sexual Orientation Not on file documented as of this encounter Miscellaneous Notes * Cerner Conversion Note - Radha ProviderMD - 10/01/2020 1:17 PM CDT Patient: L[facility] BOSCH Age: 59 years Sex: Female : 1960 Associated Diagnoses: None Author: KIERSTEN COLEY DO Basic Information pt seen and examined 10/01 sitting up in bed moved overnight to icu for pressors due to persistent hypotension good uo no new complaints Review of Systems Constitutional: No fever, No chills. Ear/Nose/Mouth/Throat: No nasal congestion, No sore throat. Respiratory: No sputum production, No hemoptysis. Gastrointestinal: No nausea, No vomiting. Genitourinary: No dysuria, No hematuria. Musculoskeletal: No neck pain, No joint pain. Integumentary: No rash, No pruritus. Neurologic: Alert and oriented X4, No abnormal balance. Health Status Allergies: Allergic Reactions (Selected) High Fish- No reactions were documented. Severity Not Documented Dilaudid- No reactions were documented. Morphine- No reactions were documented. Penicillin- No reactions were documented., Allergies (4) Active Reaction Fish None Documented Dilaudid None Documented morphine None Documented penicillin None Documented Current medications: (Selected) Inpatient Medications Ordered Bumex: 2 mg, IV Push, Daily Dulera 200 mcg-5 mcg/inh inhalation aerosol: 1 Puff, Inhalation, BID DuoNeb 0.5 mg-2.5 mg/3 mL inhalation solution: 3 mL, Nebulized Inhalation, RT_Q6H, PRN: Shortness of Breath Lantus: 10 Units, SubCutaneous, Daily Lipitor: 40 mg, Oral, Daily Lovenox: 40 mg, SubCutaneous, [id number] MiraLax: 17 Gram, Oral, Daily, PRN: Constipation NORepinephrine injection 8 mg + NaCl 0.9% for drip 250 mL: Titrate, IntraVENous Phenergan: 6.25 mg, IntraVENous, Q6H, PRN: Nausea Rocephin: 1 Gram, 100 mL/Hr, IV Piggyback, [id number] Roxicodone: 5 mg, Oral, Q4H, PRN: Pain (Moderate 4-6) Singulair: 10 mg, Oral, Daily Tylenol: 650 mg, Oral, Q4H, PRN: Fever Tylenol: 650 mg, Oral, Q4H, PRN: Pain (Mild 1-3) Zofran: 4 mg, IV Push, Q4H, PRN: Nausea albumin human 25% intravenous solution: 25 Gram, 100 mL, IV Piggyback, Q8H calcium gluconate + Sodium Chloride 0.9% intravenous solution 100 mL: 2 Gram, 20 mL, 120 mL/Hr, IV Piggyback, Daily, PRN: Other (See Comment) calcium gluconate + Sodium Chloride 0.9% intravenous solution 100 mL: 2 Gram, 20 mL, 120 mL/Hr, IV Piggyback, Q12H, PRN: Other (See Comment) calcium gluconate: 1 Gram, 10 mL, 60 mL/Hr, IV Piggyback, Daily, PRN: Other (See Comment) doxycycline: 100 mg, Oral, BID insulin lispro sliding scale: Scale B:, SubCutaneous, [...] midodrine: 10 mg, Oral, TID With Meals pantoprazole: 40 mg, Oral, Daily potassium chloride 10 mEq/50 mL intravenous solution: [...] IV Piggyback, Q6H, PRN: Other (See Comment) Documented Medications Documented Advair HFA 115 mcg-21 [...] History of obstructive sleep apnea / IMO [id number] / Confirmed, Active Problems (1) History of obstructive sleep apnea Physical Examination VS/Measurements Vitals Signs (last 24 hrs) Last Charted Minimum Maximum Temp 97.6 (OCT 01 05:07) 97.6 (OCT 01 05:07) 98.4 (SEP 30 17:56) Mon HR 109 (OCT 01 08:58) 94 (OCT 01 02:01) 112 (OCT 01 05:15) Resp Rate H 24 (OCT 01 08:58) L 8 (OCT 01 06:25) H 26 (OCT 01 06:00) SBP 105 (OCT 01 06:45) L 67 (OCT 01 00:40) 137 (SEP 30 17:56) DBP L 59 (OCT 01 06:45) L 37 (OCT 01 00:40) H 115 (SEP 30 17:56) MAP 74 (OCT 01 06:45) 47 (OCT 01 00:20) 123 (SEP 30 17:56) SpO2 L 93 (OCT 01 08:58) L 93 (OCT 01 08:58) 99 (SEP 30 17:56) General: Alert and oriented, No acute distress, morbid obesity generalized anasarca. Eye: Pupils are equal, round and reactive to light, Extraocular movements are intact. HENT: Normocephalic, Oral mucosa is moist. Respiratory: Breath sounds are equal, Symmetrical chest wall expansion, diminished, shallow. Cardiovascular: Normal rate, Regular rhythm, distant, 3+ generalized anasarca. Gastrointestinal: Soft, Non-tender. Integumentary: Warm, Dry. Neurologic: Alert, Oriented, No focal deficits. Psychiatric: Cooperative, Appropriate mood & affect. Review / Management Results review: Labs (Last four charted values) WBC H 11.0 (SEP 16) H 11.4 (SEP 15) HB 11.8 (SEP 16) 12.6 (SEP 15) HCT 35.0 (SEP 16) 38.8 (CLAUDIA 15) Plt H 468 (CLAUDIA 16) 277 (CLAUDIA 15) Na L 131 (CLAUDIA 17) L 127 (CLAUDIA 16) L 126 (CLAUDIA 15) K 3.7 (CLAUDIA 17) 4.0 (CLAUDIA 16) 3.9 (CLAUDIA 15) Cl L 97 (CLAUDIA 17) L 95 (CLAUDIA 16) L 95 (CLAUDIA 15) CO2 24 (CLAUDIA 17) 21 (CLAUDIA 16) 22 (CLAUDIA 15) BUN H 58 (CLAUDIA 17) H 55 (CLAUDIA 16) H 57 (CLAUDIA 15) Cr 0.80 (CLAUDIA 17) 0.80 (CLAUDIA 16) 0.80 (CLAUDIA 15) Glu R H 166 (CLAUDIA 17) H 230 (CLAUDIA 16) H 246 (CLAUDIA 15) Ca L 8.0 (CLAUDIA 17) L 7.8 (CLAUDIA 16) L 7.5 (CLAUDIA 15) Lactic C 5.3 (CLAUDIA 16) C 5.7 [...] 16) L 4.6 (CLAUDIA 15) ALB L 1.0 (CLAUDIA 16) L 0.9 (CLAUDIA 15) . Indications:Heart failure. Impression: Normal sized left ventricle. Mild left ventricular hypertrophy. Visually estimated ejection fraction 55% +/- 5%. Normal left ventricular systolic function with normal systolic strain pattern. Indeterminate diastolic function. Pleural effusion noted. No hemodynamically significant valvular heart disease. No masses or thrombi are seen. Impression and Plan Hyponatremia, gross volume overload, anasarca -Na slightly better severe hypoalbuminemia; iv infusions to assist with mobilization; needs diuresis, ongoing lactic acidosis evaluating for nephrotic syndrome distributive shock due to 3rd spacing/lack of intravascular solute/oncotic pressure wean pressors as able midodrine and albumin infusions severe protein calorie malnutrition pre-albumin very low contributing to the above possible acute cystitis; may be contaminated; possible developing pneumonia, more likely fluid - urine with WBC clumps. UA noted, neff in place. on empiric rocephin; will add doxy to cover poss pulm pathogens, short course Type 2 diabetes mellitus, unknown control - check A1C, added lantus and mealtime scheduled insulin; no changes today Hyperlipidemia - resume statin Hypothyroidism - normal TSH, resume synthroid GERD - continue home PPI Morbid Obesity, complicating all aspects of care. BMI: 63.4 needs PT.OT echo ok cct 33mins Electronically signed by Angela, [facility] Conversion Emr Specialist Cerner at 08/02/2022 6:10 PM CDT documented in this encounter Plan of Treatment Not on file documented as of this encounter Visit Diagnoses Not on filedocumented in this encounter
--- OUTSIDE RECORDS SUMMARY | 2024-10-17 13:12 | XMS_ITS | Encounter Summary ---
Author Organization [employer] ([place], [place], [place], [place]) Address [address] [place] [address] Care Team Providers Care Financial Planning Consultant Name Role Phone Unavailable Primary Care Provider Unavailabl e Encounter Details Date Type Department Care Team (Late st Contact Info) Description 10/01/2020 Transcribed Document [facility] [place] Family Medicine [address] [place] [address] ProviderRadha MD [address] [place] [address] Social History Tobacco Use Types Packs/Day Years Used Date Smoking Tobacco: Never Assessed Comments Unknown Sex and Gender Information Value Date Recorded Sex Assigned at Not on file Legal Sex Female 7:21 PM CDT Gender Identity Not on file Sexual Orientation Not on file documented as of this encounter Miscellaneous Notes * Cerner Conversion Note - Radha ProviderMD - 10/01/2020 11:50 AM CDT Patient: LUH BOSCH Age: 59 Years Sex: Female : 1960 Subjective Na improved. Transferred to the ICU for hypotension. Sleeping this morning. Anasarca++. Will rule out the possibility of nephrotic syndrome. Vital Signs T: 36.4 ??C TMIN: 36.4 ??C TMAX: 36.9 ??C HR: 109(Monitored) RR: 24 BP: 105/59 SpO2: 93% Oxygen Settings (Last) Oxygen Therapy Mode: Room air (10/01/20 08:58:00) Intake & Output Totals Last 24 Hours (7a-7a) Input Total: 1275 mL Output Total: 1615 mL Balance: -340 mL Physical Exam GENERAL: The patient is alert, oriented x3, in no acute distress. HEENT: Head is normocephalic, atraumatic. Extraocular movements intact. Pupils equal and reactive to light and accommodating. NECK: Supple. No JVD. No carotid bruit. LUNGS: Clear to auscultation bilaterally. Nonlabored respirations. CVS: S1, S2 audible. Tachycardic. No murmur, gallop, or rub. ABDOMEN: Soft, nontender, nondistended. Bowel sounds present. EXTREMITIES: Pitting bilateral pedal edema. No cyanosis. Peripheral pulses palpable. CHANNEL MARKETING MANAGER: No focal deficit noted grossly. Cranial nerves II through XII are intact. PSYCH: Appropriate mood and affect and cooperative. SKIN: Warm, dry, pink and intact. Assessment/Plan 1. Hyponatremia: Likey due to significant total body volume overload. Cortisol and TSH normal. Improving with diuretics and albumin 2. Anasarca. Due to third spacing with severe hypoalbuminemia 3. Low albumin level. 4. Hypotension. now on pressors and midodrine Recs Continue albumin 25 gm TID for volume expansion Bumex 2 mg daily IV Need workup for nephrotic syndrome. Check UA, UPC for initial screening. Continue midodrine 10 mg TID. Supplement Elyte per the ICU protocol VTE Prophylaxis - Medical Enoxaparin 40 mg, SubCutaneous, Inj, C16COve, Routine, Start 09/30/20 12:00:00 EDT, 09/30/20 11:44:00 EDT (KIERSTEN COLEY DO) Sequential Compression Device Start: 09/29/20 23:53:00 EDT, Bilateral, Length: Knee High, While patient is in bed, Continuous Order (JADE CURIEL) Medications albumin human 25% intravenous solution, 25 Gram= 100 mL, IV Piggyback, Q8H calcium gluconate calcium gluconate + Sodium Chloride 0.9% intravenous solution 100 mL calcium gluconate + Sodium Chloride 0.9% intravenous solution 100 mL Dulera 200 mcg-5 mcg/inh inhalation aerosol, 1 Puff, Inhalation, BID DuoNeb 0.5 mg-2.5 mg/3 mL inhalation solution, 3 mL, Nebulized Inhalation , RT_Q6H, PRN insulin lispro, 4 Units= 0.04 mL, SubCutaneous, TID With Meals insulin lispro sliding scale, Scale B:, SubCutaneous, AC and at Bedtime Lantus, 10 Units= 0.1 mL, SubCutaneous, Daily levothyroxine, 75 mcg= 1 Tab, Oral, Daily Lipitor, 40 mg= 1 Tab, Oral, Daily Lovenox, 40 mg= 0.4 mL, SubCutaneous, A57OCen magnesium sulfate, 2 Gram= 50 mL, IV Piggyback, Daily, PRN magnesium sulfate, 2 Gram= 50 mL, IV Piggyback, Q2H, PRN melatonin, 3 mg= 1 Tab, Oral, At Bedtime, PRN midodrine, 10 mg= 2 Tab, Oral, TID With Meals MiraLax, 17 Gram= 1 Packet, Oral, Daily, PRN NORepinephrine injection 8 mg + NaCl 0.9% for drip 250 mL pantoprazole, 40 mg= 1 Tab, Oral, Daily Phenergan, 6.25 mg= 0.25 mL, IntraVENous, Q6H, PRN potassium chloride 10 mEq/50 mL intravenous solution, 10 mEq= 50 mL, IV Piggyback, Q1H, PRN potassium chloride 20 mEq oral tablet, extended release, 20 mEq= 1 Tab, Oral, Q2H, PRN potassium chloride 20 mEq oral tablet, extended release, 60 mEq= 3 Tab, Oral, Q2H, PRN Rocephin Roxicodone, 5 mg= 1 Tab, Oral, Q4H, PRN Singulair, 10 mg= 1 Tab, Oral, Daily sodium phosphate sodium phosphate Tylenol, 650 mg= 2 Tab, Oral, Q4H, PRN Tylenol, 650 mg= 2 Tab, Oral, Q4H, PRN Zofran, 4 mg= 2 mL, IV Push, Q4H, PRN Lab Results Test Name Test Result Date/Time Sodium Level 131 mmol/L (Low) 10/01/2020 01:03 EDT Potassium Level 3.7 mmol/L 10/01/2020 01:03 EDT Chloride Level 97 mmol/L (Low) 10/01/2020 01:03 EDT Carbon Dioxide Level 24 mmol/L 10/01/2020 01:03 EDT Anion Gap 14 10/01/2020 01:03 EDT Glucose Level 166 mg/dL (High) 10/01/2020 01:03 EDT Blood Urea Nitrogen 58 mg/dL (High) 10/01/2020 01:03 EDT Creatinine Level 0.80 mg/dL 10/01/2020 01:03 EDT eGFR >60 mL/min/1.73m2 10/01/2020 01:03 EDT eGFR NonAfrican >60 mL/min/1.73m2 10/01/2020 01:03 EDT Bun/Creatinine 72.5 (High) 10/01/2020 01:03 EDT Calcium Level 8.0 mg/dL (Low) 10/01/2020 01:03 EDT Device Comment 1 Notified Nurse RBV 10/01/2020 00:12 EDT Device Comment 1 Notified Nurse RBV 09/30/2020 20:15 EDT Device Comment 1 Notified Nurse RBV 09/30/2020 15:37 EDT Glucose POC2 155 mg/dL (High) 10/01/2020 11:18 EDT Glucose POC2 162 mg/dL (High) 10/01/2020 09:13 EDT Glucose POC2 139 mg/dL (High) 10/01/2020 06:29 EDT Glucose POC2 165 mg/dL (High) 10/01/2020 00:12 EDT Glucose POC2 177 mg/dL (High) 09/30/2020 20:15 EDT Glucose POC2 200 mg/dL (High) 09/30/2020 15:37 EDT Hgb A1C 6.2 % 10/01/2020 01:03 EDT eAVG Glucose 131 mg/dL 10/01/2020 01:03 EDT Osmolality Serum 293 mOsm/kg 09/30/2020 13:13 EDT Uric Acid 10.7 mg/dL (High) 09/30/2020 13:13 EDT Creatinine Urine Random 82 mg/dL 10/01/2020 05:49 EDT Osmolality Urine 284 mOsm/kg 10/01/2020 05:49 EDT Protein Ur [place] 112 mg/dL 10/01/2020 05:49 EDT Sodium Ur [place] 18 mMole/Liter 10/01/2020 05:49 EDT Urea Nitrogen Urine Random 390 mg/dL 10/01/2020 05:49 EDT CK 55 Units/Liter 09/30/2020 13:13 EDT Urine Type U Cath 10/01/2020 05:49 EDT Urine Color RED2 10/01/2020 05:49 EDT Urine Appearance TURBID2 (Abnormal) 10/01/2020 05:49 EDT Urine Specific [place] 1.015 10/01/2020 05:49 EDT Urine pH Dipstick 5.5 (Low) 10/01/2020 05:49 EDT Urine Leukocyte Esterase LARGE2 (Abnormal) 10/01/2020 05:49 EDT Urine Nitrite NEGATIVE2 10/01/2020 05:49 EDT Urine Protein Dipstick 100 (Abnormal) 10/01/2020 05:49 EDT Urine Glucose Dipstick NEGATIVE2 10/01/2020 05:49 EDT Urine Ketones Dipstick TRACE2 (Abnormal) 10/01/2020 05:49 EDT Urine Urobilinogen Dipstick 0.2 10/01/2020 05:49 EDT Urine Bilirubin Dipstick NEGATIVE2 10/01/2020 05:49 EDT Urine Blood Dipstick LARGE2 (Abnormal) 10/01/2020 05:49 EDT Ur RBC To Numerous to Count (Abnormal) 10/01/2020 05:49 EDT Ur WBC 50-100 (Abnormal) 10/01/2020 05:49 EDT Ur WBC Clumps Present (Abnormal) 10/01/2020 05:49 EDT Ur Transitional Epi Cells 5-10 (Abnormal) 10/01/2020 05:49 EDT Ur Sulfate Crystals Trace (Abnormal) 10/01/2020 05:49 EDT Cortisol Level 11.0 mcg/dL 10/01/2020 01:03 EDT documented in this encounter Plan of Treatment Not on file documented as of this encounter Visit Diagnoses Not on filedocumented in this encounter
--- OUTSIDE RECORDS SUMMARY | 2024-10-17 13:13 | XMS_ITS | Encounter Summary ---
Author Organization [employer] ([place], [place], [place], [place]) Address [address] [place] [address] Care Team Providers Care Freight Solicitor Name Role Phone Unavailable Primary Care Provider Unavailabl e Encounter Details Date Type Department Care Team (Late st Contact Info) Description 10/10/2020 Transcribed Document [facility] [place] [address] [place] [address] ProviderRadha MD [address] [place] [address] Social History Tobacco Use Types Packs/Day Years Used Date Smoking Tobacco: Never Assessed Comments Unknown Sex and Gender Information Value Date Recorded Sex Assigned at Not on file Legal Sex Female 7:21 PM CDT Gender Identity Not on file Sexual Orientation Not on file documented as of this encounter Miscellaneous Notes * Cerner Conversion Note - Historical ProviderMD - 10/10/2020 2:00 AM CDT Equipment Operat0R Details Entered On: 10/10/2020 4:58 EDT Performed On: 10/10/2020 2:00 EDT by Yovana Whelan Non Emp [...] No Yovana Whelan Non Emp RN - 10/10/2020 4:58 EDT documented in this encounter Plan of Treatment Not on file documented as of this encounter Visit Diagnoses Not on filedocumented in this encounter
--- OUTSIDE RECORDS SUMMARY | 2024-10-17 13:13 | XMS_ITS | Encounter Summary ---
Author Organization [employer] ([place], [place], [place], [place]) Address [address] [place] [address] Care Team Providers Care Assurance Engineer Name Role Phone Unavailable Primary Care Provider Unavailabl e Encounter Details Date Type Department Care Team (Late st Contact Info) Description 10/05/2020 Transcribed Document [facility] [place] Family Medicine [address] [place] [address] ProviderRadha MD [address] [place] [address] Social History Tobacco Use Types Packs/Day Years Used Date Smoking Tobacco: Never Assessed Comments Unknown Sex and Gender Information Value Date Recorded Sex Assigned at Not on file Legal Sex Female 7:21 PM CDT Gender Identity Not on file Sexual Orientation Not on file documented as of this encounter Miscellaneous Notes * Cerner Conversion Note - Radha ProviderMD - 10/05/2020 1:33 PM CDT On Going Discharge Planning Entered On: 10/05/2020 13:37 EDT Performed On: 10/05/2020 13:33 EDT by KAROLINA PLEITEZ Rn-Engraver LetterImage Scientist Progress Note Discharge Arrangements : Patient Post-Acute Information Patient Name: LUH BOSCH Gender: Female : [birth year] Age: 59 Years No Post-Acute Placement(s) Listed No Post-Acute Service(s) Listed No [place] Referral(s) Listed Discharge Options Discussed with Patient : Acute rehabilitation, Discharge transportation, DME, Home Health, Short term rehabilitation Barriers to Discharge Identified : Clinical Condition of Patient, Follow-Up appointments needed Barriers to Discharge Unresolved : Clinical Condition of Patient KAROLINA PLEITEZ Rn-Engraver Letter - 10/05/2020 13:33 EDT Narrative Progress Note Narrative Progress Note : HD#4; ELOS 3; MRR; BOOST 7 - GenEdema/Hypernatremia/Anasarca - 02=2L; B/P 105/58; PO Vancomycin; Midodrine 10 mg TID; lytes to be replaced; Nephrology has signed off; pt MaxAx2 w/therapy; updates sent thru [facility] to [facility] and left another message for f/u to confirm pt may return and anticipated turn around time for precert; DCP return for rehab; will likely require ambulance for transport; [facility] and advised they will be unable to meet patient's needs; referral cancelled. l Spoke with pt's son Kishore and advised pt may require long-term care placement; he will discuss options with his sister and advise CM; initial referrals sent thru [facility] to [facility]. KAROLINA PLEITEZ Rn-Engraver Letter - 10/05/2020 13:53 EDT Historical Progress Note : HD#1; ELOS 3; MRR; BOOST 7 - GenEdema/Hypernatremia/Anasarca - improving - 02=2L; Levo gtt; Midodrine; IV Bumex; Nephrology - 24 hr urine to eval for nephrotic syndrome; +CDiff; Rocephin/Doxy/Vanc; ltd work w/therapy - refusing OOB and knee/hip AROM; pt needs to be encouraged; DCP rehab - left message for [facility] [phone] to confirm receipt of referral; pt will need precert. KAROLINA PLEITEZ Rn-Engraver Letter - 10/02/20 12:06:37 HD#1; ELOS 3; MRR; BOOST 7 - Transfer from [facility] for Generalized Edema; Nephrology consult; CE=609; RA; Doxycycline/Rocephin; met w/pt's adult children Leslie Og and Kishore Bosch ([phone]) who states DCP will be return to [facility] for ongoing rehab; explained pt will require a precert; updates clinicals sent to [facility] and voicemail left for intake [phone]; [phone]. KAROLINA PLEITEZ Rn-Engraver Letter - 10/01/20 14:32:34 KAROLINA PLEITEZ, Rn-Engraver Letter - 10/05/2020 13:33 EDT documented in this encounter Plan of Treatment Not on file documented as of this encounter Visit Diagnoses Not on filedocumented in this encounter
--- OUTSIDE RECORDS SUMMARY | 2024-10-17 13:13 | XMS_ITS | Encounter Summary ---
Author Organization [employer] ([place], [place], [place], [place]) Address [address] [place] [address] Care Team Providers Care Cloth Printer Name Role Phone Unavailable Primary Care Provider Unavailabl e Encounter Details Date Type Department Care Team (Late st Contact Info) Description 09/30/2020 Transcribed Document [facility] [place] [address] [place] [address] ProviderRadha MD [address] [place] [address] Social History Tobacco Use Types Packs/Day Years Used Date Smoking Tobacco: Never Assessed Comments Unknown Sex and Gender Information Value Date Recorded Sex Assigned at Not on file Legal Sex Female 7:21 PM CDT Gender Identity Not on file Sexual Orientation Not on file documented as of this encounter Miscellaneous Notes * Cerner Conversion Note - Historical ProviderMD - 09/30/2020 2:00 AM CDT Plant Changer Details Entered On: 09/30/2020 1:26 EDT Performed On: 09/30/2020 2:00 EDT by Marlee Richmond RN Order Details Transport Mode Order Detail : Stretcher/Gurney Isolation Precautions Order Detail : Standard Precautions Order Detail : 0 IV Order Detail : 1 Oxygen Order Detail : 0 Nurse Collect Order Detail : 0 Lift/Transfer : Maximal assist Central Line Order Detail : No Room Service : Appropriate Arterial Line : No Patient Needs Meds Crushed/Liquid : No Marlee Richmond RN - 09/30/2020 1:26 EDT documented in this encounter Plan of Treatment Not on file documented as of this encounter Visit Diagnoses Not on filedocumented in this encounter
--- OUTSIDE RECORDS SUMMARY | 2024-10-17 13:13 | XMS_ITS | Encounter Summary ---
Author Organization [employer] ([place], [place], [place], [place]) Address [address] [place] [address] Care Team Providers Care Supervisor Cook Room Name Role Phone Unavailable Primary Care Provider Unavailabl e Encounter Details Date Type Department Care Team (Late st Contact Info) Description 10/09/2020 Transcribed Document [facility] [place] Family Medicine [address] [place] [address] ProviderRadha MD [address] [place] [address] Social History Tobacco Use Types Packs/Day Years Used Date Smoking Tobacco: Never Assessed Comments Unknown Sex and Gender Information Value Date Recorded Sex Assigned at Not on file Legal Sex Female 7:21 PM CDT Gender Identity Not on file Sexual Orientation Not on file documented as of this encounter Miscellaneous Notes * Cerner Conversion Note - Historical ProviderMD - 10/09/2020 5:00 AM CDT Chart Check - Review Order Profile Entered On: 10/09/2020 3:36 EDT Performed On: 10/09/2020 5:00 EDT by Yovana Whelan Non Emp RN Chart Check Powerplans Initiated/Discontinued as Appropriate : Yes All Active Orders Reviewed : Yes Yovana Whelan Non Emp RN - 10/09/2020 3:36 EDT Electronically signed by Galen Miller Conversion Adzing And Boring Machine Helper Sandra at 08/02/2022 6:23 PM CDT documented in this encounter Plan of Treatment Not on file documented as of this encounter Visit Diagnoses Not on filedocumented in this encounter
--- OUTSIDE RECORDS SUMMARY | 2024-10-17 13:13 | XMS_ITS | Encounter Summary ---
Author Organization [employer] ([place], [place], [place], [place]) Address [address] [place] [address] Care Team Providers Care J2Ee Application Developer Name Role Phone Unavailable Primary Care Provider Unavailabl e Encounter Details Date Type Department Care Team (Late st Contact Info) Description 10/05/2020 Transcribed Document [facility] [address] [place] [address] ProviderRadha MD [address] [place] [address] Social History Tobacco Use Types Packs/Day Years Used Date Smoking Tobacco: Never Assessed Comments Unknown Sex and Gender Information Value Date Recorded Sex Assigned at Not on file Legal Sex Female 7:21 PM CDT Gender Identity Not on file Sexual Orientation Not on file documented as of this encounter Miscellaneous Notes * Cerner Conversion Note - Historical ProviderMD - 10/05/2020 2:00 AM CDT Selenium Plant Operator Details Entered On: 10/05/2020 4:49 EDT Performed On: 10/05/2020 2:00 EDT by Desire Verduzco Order Details Transport Mode Order Detail : [...] No Patient Needs Meds Crushed/Liquid : No Desire Verduzco - 10/05/2020 4:49 EDT Electronically signed by Galen Miller Conversion Lime Kiln And Recausticizing Operator Cerner at 08/02/2022 6:20 PM CDT documented in this encounter Plan of Treatment Not on file documented as of this encounter Visit Diagnoses Not on filedocumented in this encounter
--- OUTSIDE RECORDS SUMMARY | 2024-10-17 13:13 | XMS_ITS | Encounter Summary ---
Author Organization [employer] ([place], [place], [place], [place]) Address [address] [place] [address] Care Team Providers Care Service Trainer Name Role Phone Unavailable Primary Care Provider Unavailabl e Encounter Details Date Type Department Care Team (Late st Contact Info) Description 10/10/2020 Transcribed Document [facility] [place] [address] [place] [address] ProviderRadha MD [address] [place] [address] Social History Tobacco Use Types Packs/Day Years Used Date Smoking Tobacco: Never Assessed Comments Unknown Sex and Gender Information Value Date Recorded Sex Assigned at Not on file Legal Sex Female 7:21 PM CDT Gender Identity Not on file Sexual Orientation Not on file documented as of this encounter Miscellaneous Notes * Cerner Conversion Note - Historical ProviderMD - 10/10/2020 5:00 AM CDT Chart Check - Review Order Profile Entered On: 10/10/2020 4:59 EDT Performed On: 10/10/2020 5:00 EDT by Yovana Whelan Non Emp RN Chart Check Powerplans Initiated/Discontinued as Appropriate : Yes All Active Orders Reviewed : Yes Yovana Whelan Non Emp RN - 10/10/2020 4:59 EDT documented in this encounter Plan of Treatment Not on file documented as of this encounter Visit Diagnoses Not on filedocumented in this encounter
--- OUTSIDE RECORDS SUMMARY | 2024-10-17 13:13 | XMS_ITS | Encounter Summary ---
Author Organization [employer] ([place], [place], [place], [place]) Address [address] [place] [address] Care Team Providers Care Business Law Instructor Name Role Phone Unavailable Primary Care Provider Unavailabl e Encounter Details Date Type Department Care Team (Late st Contact Info) Description 09/30/2020 Transcribed Document [facility] [place] Family Medicine [address] [place] [address] ProviderRadha MD [address] [place] [address] Social History Tobacco Use Types Packs/Day Years Used Date Smoking Tobacco: Never Assessed Comments Unknown Sex and Gender Information Value Date Recorded Sex Assigned at Not on file Legal Sex Female 7:21 PM CDT Gender Identity Not on file Sexual Orientation Not on file documented as of this encounter Miscellaneous Notes * Cerner Conversion Note - Historical ProviderMD - 09/30/2020 5:00 AM CDT Chart Check - Review Order Profile Entered On: 09/30/2020 5:47 EDT Performed On: 09/30/2020 5:00 EDT by Marlee Richmond RN Chart Check Powerplans Initiated/Discontinued as Appropriate : Yes All Active Orders Reviewed : Yes Marlee Richmond RN - 09/30/2020 5:47 EDT documented in this encounter Plan of Treatment Not on file documented as of this encounter Visit Diagnoses Not on filedocumented in this encounter
--- OUTSIDE RECORDS SUMMARY | 2024-10-17 13:13 | XMS_ITS | Encounter Summary ---
Author Organization [employer] ([place], [place], [place], [place]) Address [address] [place] [address] Care Team Providers Care System Archive Analyst Name Role Phone Unavailable Primary Care Provider Unavailabl e Encounter Details Date Type Department Care Team (Late st Contact Info) Description 09/29/2020 Transcribed Document [facility] [place] [address] [place] [address] ProviderRadha MD [address] [place], [place] [id number] Social History Tobacco Use Types Packs/Day Years Used Date Smoking Tobacco: Never Assessed Comments Unknown Sex and Gender Information Value Date Recorded Sex Assigned at Not on file Legal Sex Female 7:21 PM CDT Gender Identity Not on file Sexual Orientation Not on file documented as of this encounter Miscellaneous Notes * Cerner Conversion Note - Radha Reed MD - 09/29/2020 11:11 PM CDT Patient: LUH BOSCH Age: 59 Years Sex: Female : 1960 Chief Complaint Fluid overload Primary Care Provider CASI, NOT LISTED History of Present Illness Luh Bosch is an incredibly pleasant 59-year-old female with past medical history significant for type 2 diabetes mellitus, hypertension, hyperlipidemia, GERD, and reported 2-month history of gross fluid overload was transferred to [facility] from [facility] with hyponatremia. The patient story is that on 07/25, she weighed 230 pounds, with a history of having some mild lower extremity edema. She reports she gained approximately 100 pounds of water weight in 3 days on 07/28. She was hospitalized at [facility], was intermittently hypotensive and having lower extremity weakness. She improved and was discharged back [place] [facility] [place] where for the past 2 weeks she has been working with physical therapy with a fluid restricted diet receiving occasional albumin infusions. However, over the last several days she has had increased lower extremity edema with fluid weeping. She was taken to the emergency department for evaluation, found to have a sodium level of 122 and a BUN of 60. They noted a 20 pound weight gain since her last admission. A transfer to our facility was requested for higher level of care. Review of Systems Constitutional: No fevers, chills Eye: No blurry vision, no discharge HEENT: No sore throat, no nasal congestion Respiratory: No cough, no shortness of breath Cardiovascular: No Chest pain, no palpitations Gastrointestinal: No nausea, vomiting, diarrhea, constipation Genitourinary: No hematuria, no dysuria Tony/Lymph: Negative for bruising tendency, no nosebleeds Endocrine: Negative for excessive thirst, no excessive urination Musculoskeletal: No back pain, reports bilateral LE edema and pain Integumentary: No rash, no pruritus Neurologic: No focal weakness, no numbness Psychiatric: No anxiety, depression Vital Signs T: 36.3 ??C HR: 126(Monitored) RR: 20 BP: 122/76 SpO2: 96% HT: 157.48 cm WT: 157.27 kg BMI: 63.4 Oxygen Settings (Last) Oxygen Therapy Mode: Room air (09/29/20 22:31:00) Physical Exam General: Alert and oriented, no acute distress, obese Neurologic: Awake, alert, and oriented X3, no apparent focal deficits Eye: EOMI, normal conjunctiva HENT: Normocephalic, atraumatic Neck: no carotid bruits, no JVD Lungs: Clear to auscultation, non-labored respiration Heart: Normal rate, regular rhythm, no murmur Abdomen: Soft, non-tender, non-distended, normal bowel sounds Musculoskeletal: Bilateral pitting edema Skin: Skin is warm, dry, no rashes or lesions Psychiatric: Cooperative, appropriate mood and affect Assessment/Plan Hyponatremia, likely hypervolemic - Na 122. Check serum osmol, ur sodium, ur creatinine. Ask nephrology to see in the AM. Gross fluid overload w/ anasarca - check albumin, prealbumin. Fluid restriction to 1500cc/day. Echocardiogram ordered. Nephrology consulted. Acute cystitis - urine with WBC clumps. UA pending. Start empiric rocephin Type 2 diabetes mellitus, unknown control - check A1C, start correctional scale insulin Hyperlipidemia - resume statin Hypothyroidism - check TSH, resume synthroid GERD - continue home PPI Morbid Obesity, complicating all aspects of care. BMI: 63.4 SARS-CoV-2 screening PCR: neg [facility] 09/29 Diet: regular, fluid restriction DVT ppx: heparin 5000 q8 Code: full Medications, labs, imaging, and available medical records reviewed. Discussed w/ RN Dictated using [employer] Speech Recognition software - unidentified cannoneer errors may be present. Jade Curiel DO [facility] [phone] Orders: acetaminophen, 650 mg, Oral, Tab, Q4H, PRN for Pain (Mild 1-3), Routine, Start 09/30/20 0:23:00 EDT, 09/30/20 0:23:00 EDT acetaminophen, 650 mg, Oral, Tab, Q4H, PRN for Fever, Routine, Start 09/30/20 0:23:00 EDT, 09/30/20 0:23:00 EDT albumin human, 12.5 Gram, IV Piggyback, Inj, Q8H, order duration: 3 Time(s), Routine, Start 09/30/20 3:00:00 EDT, Stop 09/30/20 14:00:00 EDT, 09/30/20 3:00:00 EDT albuterol-ipratropium, 3 mL, Nebulized Inhalation, Inh, RT_Q6H, PRN for Shortness of Breath, Routine, Start 09/30/20 0:23:00 EDT cefTRIAXone, 1 Gram, IV Piggyback, Inj, [id number], infuse over 30 Minute(s), Routine, Start 09/30/20 1:00:00 EDT, 100 mL/Hr, Indication: Urinary Tract Infection heparin, 5,000 Units, SubCutaneous, Inj, Q8H, Routine, Start 09/30/20 0:24:00 EDT, 09/30/20 0:24:00 EDT levothyroxine, 75 mcg, Oral, Tab, Daily, Routine, Start 09/30/20 6:30:00 EDT, 09/30/20 0:16:00 EDT melatonin, 3 mg, Oral, Tab, At Bedtime, PRN for Insomnia, Routine, Start 09/30/20 0:23:00 EDT, 09/30/20 0:23:00 EDT ondansetron, 4 mg, IV Push, Inj, Q4H, PRN for Nausea, Routine, Start 09/30/20 0:23:00 EDT, 09/30/20 0:23:00 EDT oxyCODONE, 5 mg, Oral, Tab, Q4H, PRN for Pain (Moderate 4-6), Routine, Start 09/30/20 0:23:00 EDT, 09/30/20 0:23:00 EDT pantoprazole, 40 mg, Oral, EC Tab, Daily, Routine, Start 09/30/20 9:00:00 EDT, 09/30/20 0:16:00 EDT polyethylene glycol 3350, 17 Gram, Oral, Powder, Daily, PRN for Constipation, Routine, Start 09/30/20 0:23:00 EDT promethazine, 6.25 mg, IntraVENous, Inj, Q6H, PRN for Nausea, Routine, Start 09/30/20 0:23:00 EDT, 09/30/20 0:23:00 EDT Bedrest CBC w/ Auto Diff CMP Comprehensive Metabolic Panel CMP Comprehensive Metabolic Panel Consult to Physician Coronavirus 2019 Novel Creatinine Urine Random Diabetes Education (Nursing) Diet, Adult DVT VTE Prophylaxis Education EC Echo Complete ECG Facility Protocol Intake and Output Notify Provider Intake and Output Notify Provider of Change in Patient Condition Notify Provider of Change in Patient Condition Notify Provider Vital Signs Osmolality Serum Osmolality Urine OT Evaluation and Treatment Prealbumin ProBNP PT Evaluation and Treatment Pulse Oximetry Spot Check (Nursing) Resuscitation Status Sequential Compression Device Sodium Level Urine Random TSH Thyroid Stimulating Hormone Urinalysis UA Rflx Microscopic Cult if Ind Urinalysis w/ Microscopic no Culture Vital Signs VTE Prophylaxis - Medical Heparin 5,000 Units, SubCutaneous, Inj, Q8H, Routine, Start 09/30/20 0:24:00 EDT, 09/30/20 0:24:00 EDT (JADE CURIEL) Sequential Compression Device Start: 09/29/20 23:53:00 EDT, Bilateral, Length: Knee High, While patient is in bed, Continuous Order (JADE CURIEL) Problem List/Past Medical History DM2 Hypothyroid HLD GERD Procedure/Surgical History L hand hysterectomy [facility]Y Home Medications (9) Active atorvastatin 40 mg oral tablet Bydureon BCise 2 mg/0.85 mL subcutaneous suspension, extended release Flovent Diskus 100 mcg/inh inhalation powder 2 Puff, Inhalation, BID levothyroxine 75 mcg (0.075 mg) oral tablet 75 mcg = 1 Tab, Oral, Daily losartan 25 mg oral tablet metOLazone 2.5 mg oral tablet montelukast 10 mg oral tablet omeprazole 40 mg oral delayed release capsule 40 mg = 1 Cap, Oral, Daily Potassium Chloride (Ppz-Eqaf-Hzi 10) 10 mEq oral tablet, extended release Allergies No active allergies Social History quit smoking 5 years ago no alcohol [place] Family History Dad and cousin from [place] Lab Results Test Name Test Result Date/Time Ammonia Level 20.0 uMol/L 09/29/2020 23:26 EDT Lactic Acid Level 5.6 mmol/L (Critical) 09/29/2020 23:26 EDT WBC 11.4 K/uL (High) 09/29/2020 23:04 EDT RBC 4.63 Million/uL 09/29/2020 23:04 EDT Hgb 12.6 g/dL 09/29/2020 23:04 EDT Hct 38.8 % 09/29/2020 23:04 EDT MCV 83.8 fL 09/29/2020 23:04 EDT MCH 27.2 pg 09/29/2020 23:04 EDT MCHC 32.5 Gram/dL 09/29/2020 23:04 EDT Platelet Count 277 K/uL 09/29/2020 23:04 EDT MPV 8.9 fL (Low) 09/29/2020 23:04 EDT RDW 19.3 % (High) 09/29/2020 23:04 EDT Neut % 90.3 % (High) 09/29/2020 23:04 EDT Neut # 10.32 K/uL (High) 09/29/2020 23:04 EDT Lymph % 3.6 % (Low) 09/29/2020 23:04 EDT Lymph # 0.41 x10(3)/uL (Low) 09/29/2020 23:04 EDT Elk % 3.0 % 09/29/2020 23:04 EDT Elk # 0.34 K/uL 09/29/2020 23:04 EDT Eos % 0.4 % 09/29/2020 23:04 EDT Eos # 0.05 x10(3)/uL 09/29/2020 23:04 EDT Baso % 1.0 % 09/29/2020 23:04 EDT Baso # 0.11 x10(3)/uL 09/29/2020 23:04 EDT Slide Review No 09/29/2020 23:04 EDT IG# 0.20 x10(3)/uL (High) 09/29/2020 23:04 EDT IG% 1.70 % (High) 09/29/2020 23:04 EDT PT 12.3 Second(s) (High) 09/29/2020 23:26 EDT INR 1.2 09/29/2020 23:26 EDT Additional Documentation Code Status Start: 09/29/20 23:53:00 EDT, Full Code, Continuous Order Electronically signed by [facility], [facility] Conversion Cyber Security Analyst Cerner at 08/02/2022 6:10 PM CDT documented in this encounter Plan of Treatment Not on file documented as of this encounter Visit Diagnoses Not on filedocumented in this encounter
--- OUTSIDE RECORDS SUMMARY | 2024-10-17 13:13 | XMS_ITS | Encounter Summary ---
Author Organization [employer] ([place], [place], [place], [place]) Address [address] [place] [address] Care Team Providers Care Pantograph Machine Operator Name Role Phone Unavailable Primary Care Provider Unavailabl e Encounter Details Date Type Department Care Team (Late st Contact Info) Description 09/30/2020 Transcribed Document [facility] [place] Family Medicine [address] [place] [address] ProviderRadha MD [address] [place] [address] Social History Tobacco Use Types Packs/Day Years Used Date Smoking Tobacco: Never Assessed Comments Unknown Sex and Gender Information Value Date Recorded Sex Assigned at Not on file Legal Sex Female 7:21 PM CDT Gender Identity Not on file Sexual Orientation Not on file documented as of this encounter Miscellaneous Notes * Cerner Conversion Note - Radha ProviderMD - 09/30/2020 3:38 PM CDT Initial Discharge Planning Entered On: 09/30/2020 15:38 EDT Performed On: 09/30/2020 15:38 EDT by PADMA GOMEZ Asl Interpreter-Director Of Quality Control Initial Assessment I Previously Documented Living Environment : No qualifying data available. Living Situation : Home Patient Lives With : Alone Is the Patient a Caregiver at Home? : No Emergency Contact #1 : sandoval pacheco Emergency Contact #1 Emergency Contact #1 Relationship : daughter Emergency Contact #2 : frandy humberto Emergency Contact #2 Emergency Contact #2 Relationship : son Was Referral made to PCP? : No Does Patient have PCP Listed? : No PADMA GOMEZ Asl Interpreter-Director Of Quality Control - 09/30/2020 15:38 EDT Initial Assessment II Sensory and Motor Deficits : Weakness Current Home Treatments and Equipment : Bedside commode, Walker PADMA GOMEZ Asl Interpreter-Director Of Quality Control - 09/30/2020 15:38 EDT Discharge Needs I Anticipated Discharge To, CM : Home with home health, alf facility Current Home Treatment/Equipment : Current Home Treatment/Equipment No qualifying data available. Post Acute/Home Treatments : None Documentation Status Complete : Yes PADMA GOMEZ Asl Interpreter-Director Of Quality Control - 09/30/2020 15:38 EDT Discharge Needs II Professional Skilled Services : Professional Skilled Services No qualifying data available. Needs Assistance with Transportation : Maybe Discharge Options Discussed with Patient : Acute rehabilitation, Discharge transportation, DME, Home Health, Short term rehabilitation PADMA GOMEZ Asl Interpreter-Director Of Quality Control - 09/30/2020 15:38 EDT Narrative Note Narrative Note : Patient is a moderate readmission risk of 41 Boost of 5. Patient is from [facility]. Patient reported that she doesn't want to go back there if she can walk. Patient stated that she was unable to walk today because of fluid on me . Patient stated that if she can't walk at discharge she understands she has to go back to [facility]. Patient stated that if she can she wants to go home without any services including HH. Patient denied ever having HH. CM will continue to follow. PADMA GOMEZ Asl Interpreter-Director Of Quality Control - 09/30/2020 15:38 EDT documented in this encounter Plan of Treatment Not on file documented as of this encounter Visit Diagnoses Not on filedocumented in this encounter
--- OUTSIDE RECORDS SUMMARY | 2024-10-17 13:13 | XMS_ITS | Encounter Summary ---
Author Organization [employer] ([place], [place], [place], [place]) Address [address] [place] [address] Care Team Providers Care Chief Mechanical Engineer Name Role Phone Unavailable Primary Care Provider Unavailabl e Encounter Details Date Type Department Care Team (Late st Contact Info) Description 10/05/[address] [facility] Radiology [address] [place] [address] Malu Pemberton MD [address] [place], [place] [id number] Social History Tobacco Use Types Packs/Day Years Used Date Smoking Tobacco: Never Assessed Comments Unknown Sex and Gender Information Value Date Recorded Sex Assigned at Not on file Legal Sex Female 7:21 PM CDT Gender Identity Not on file Sexual Orientation Not on file documented as of this encounter Miscellaneous Notes * Cerner Conversion Note - Malu Pemberton MD - 10/05/2020 12:00 PM EDT Patient: LUH BOSCH Age: 59 years Sex: Female : 1960 Associated Diagnoses: None Author: MALU PEMBERTON MD-INT Basic Information Date of encounter 10/05/20 Patient is awake and alert Has been weaned off her pressors Still with neff in and has been reluctant to have it removed. No pain Physical Examination VS/Measurements Vitals Signs (last 24 hrs) Last Charted Minimum Maximum Temp 98.7 (OCT 05 12:00) 98.7 (OCT 05 12:00) 99.4 (OCT 04 16:00) Mon HR 93 (OCT 05 14:00) 82 (OCT 04 22:00) 104 (OCT 05 09:00) Resp Rate H 25 (OCT 05 14:00) L 10 (OCT 05 10:00) H 37 (OCT 05 06:00) SBP 94 (OCT 05 14:00) L 87 (OCT 05 02:00) 124 (OCT 04 18:00) DBP L 50 (OCT 05 14:00) L 50 (OCT 05 02:00) 70 (OCT 04 18:00) MAP 68 (OCT 05 14:) 64 (OCT 05 02:00) 89 (OCT 04 18:00) SpO2 95 (OCT 05 14:00) L 89 (OCT 05 05:00) 98 (OCT 04 23:00) General: Alert and oriented, No acute distress, morbid obesity generalized anasarca. Eye: Pupils are equal, round and reactive to light, Extraocular movements are intact. HENT: Normocephalic, Oral mucosa is moist. Respiratory: Breath sounds are equal, Symmetrical chest wall expansion, diminished, shallow. Cardiovascular: Normal rate, Regular rhythm. Gastrointestinal: Soft, Non-tender, obese with large pannus. Integumentary: Warm, Dry, peripheral edema. Neurologic: Alert, Oriented, No focal deficits. Psychiatric: Cooperative, Appropriate mood & affect. Review / Management Labs reviewed. Impression and Plan Distributive shock: due to 3rd spacing/lack of intravascular solute/oncotic pressure/wean pressors/on midodrine/add albumin today. ECHO with normal EF. Hol doff diurectics (discussed with nephrology) and will continue with IV albumin and midodrine and weaned off pressors. C.diff enteritis: increase oral vanc dosing started overnight to 250 qid. Hyponatremia, gross volume overload, anasarca -Na better and normalised Hypoalbuminemia with anasarca: Had 24 hour urine but no evidence of nephrotic syndrome. severe protein calorie malnutrition: Patient admits to very restritive calorie diet. Added supplements. possible acute cystitis; may be contaminated; - urine with WBC clumps. UA noted, Culture with yeast and explained need to remove neff and will start scheduled voiding during the day. Off abx with c.diff as well. CXR with opacities likely with fluid overload with anasarca. Type 2 diabetes mellitus,with A1c at 6.2% Hyperlipidemia - resume statin Hypothyroidism - normal TSH, resume synthroid GERD - continue home PPI Morbid Obesity, complicating all aspects of care. BMI: 63.4 DVT prophylaxis: on lovenox Disposition:Hold diuretics/discussed need for neff removal and scheduled voiding Discussed with patient, and nursing. Transfer out of unit Patient had been at rehab when she was admitted and plans to go back to rehab at discharge. Time spent with above 28 minutes documented in this encounter Plan of Treatment Not on file documented as of this encounter Visit Diagnoses Not on filedocumented in this encounter
--- OUTSIDE RECORDS SUMMARY | 2024-10-17 13:13 | XMS_ITS | Encounter Summary ---
Author Organization [employer] ([place], [place], [place], [place]) Address [address] [place] [address] Care Team Providers Care Grout Worker Name Role Phone Unavailable Primary Care Provider Unavailabl e Encounter Details Date Type Department Care Team (Late st Contact Info) Description 10/01/2020 Transcribed Document [facility] [place] Family Medicine [address] [place] [address] ProviderRadha MD [address] [place], [place] [address] Social History Tobacco Use Types Packs/Day Years Used Date Smoking Tobacco: Never Assessed Comments Unknown Sex and Gender Information Value Date Recorded Sex Assigned at Not on file Legal Sex Female 7:21 PM CDT Gender Identity Not on file Sexual Orientation Not on file documented as of this encounter Miscellaneous Notes * [employer] Conversion Note - Historical ProviderMD - 10/01/2020 1:20 AM CDT Spiritual Care Short Form Entered On: 10/01/2020 3:25 EDT Performed On: 10/01/2020 1:20 EDT by BHARGAVI ANTON Chaplain General Information, Spiritual Care Spiritual Care Referred by : Other: PUBLIC ADDRESS SYSTEMS MECHANIC Event Reason for Visit : Initial Ministry Provided to : Patient Intervention/Comment/Summary Points : Chap. prayed o/s pt. while team worked with pt. Upon conclusion of PUBLIC ADDRESS SYSTEMS MECHANIC event pt. declined chap. visit. BHARGAVI ANTON Chaplain - 10/01/2020 3:23 EDT documented in this encounter Plan of Treatment Not on file documented as of this encounter Visit Diagnoses Not on filedocumented in this encounter
--- OUTSIDE RECORDS SUMMARY | 2024-10-17 13:13 | XMS_ITS | Encounter Summary ---
Author Organization [email or web address] ([place], [place], [place], [place]) Address [address] [place] [address] Care Team Providers Care Clamp Forklift Operator Name Role Phone Unavailable Primary Care Provider Unavailabl e Encounter Details Date Type Department Care Team (Late st Contact Info) Description 10/01/[address] [facility] [place] Family Medicine [address] [place] [address] ProviderRadha MD [address], [place] [address] Social History Tobacco Use Types Packs/Day Years Used Date Smoking Tobacco: Never Assessed Comments Unknown Sex and Gender Information Value Date Recorded Sex Assigned at Not on file Legal Sex Female 7:21 PM CDT Gender Identity Not on file Sexual Orientation Not on file documented as of this encounter Miscellaneous Notes * [employer]ner Conversion Note - Historical ProviderMD - 10/01/2020 5:08 AM CDT Patient: LUH GLASS Age: 59 Years Sex: Female : 1960 Patient persistently hypotensive overnight, with mean arterial pressures in the 50s. Continued patient on albumin, started midodrine 10 mg 3 times daily, however she did not respond as hoped and her most recent pressure was 71/39. Will transfer patient to ICU and initiate Levophed. documented in this encounter Plan of Treatment Not on file documented as of this encounter Visit Diagnoses Not on filedocumented in this encounter
--- OUTSIDE RECORDS SUMMARY | 2024-10-17 13:13 | XMS_ITS | Encounter Summary ---
Author Organization [employer] ([place], [place], [place], [place]) Address [address] [place] [address] Care Team Providers Care Tiller Man Name Role Phone Unavailable Primary Care Provider Derrell rose Encounter Details Date Type Department Care Team (Late st Contact Info) Description 10/08/2020 Transcribed Document [facility] [place] [address] [place] [address] ProviderRadha MD [address] [place] [address] Social History Tobacco Use Types Packs/Day Years Used Date Smoking Tobacco: Never Assessed Comments Unknown Sex and Gender Information Value Date Recorded Sex Assigned at Not on file Legal Sex Female 7:21 PM CDT Gender Identity Not on file Sexual Orientation Not on file documented as of this encounter Miscellaneous Notes * Cerner Conversion Note - Radha ProviderMD - 10/08/2020 11:11 AM CDT Patient: LUH BOSCH Age: 59 years Sex: Female : 1960 Associated Diagnoses: None Author: KIERSTEN COLEY DO Basic Information Date of encounter 10/08/20 Patient is awake and alert no complaints no nausea sitting up in bed, working on [employer] Health Status Allergies: Allergic Reactions (Selected) High Fish- No reactions were documented. Severity Not Documented Dilaudid- No reactions were documented. Morphine- No reactions were documented. Penicillin- No reactions were documented., Allergies (4) Active Reaction Fish None Documented Dilaudid None Documented morphine None Documented penicillin None Documented Current medications: (Selected) Inpatient Medications Ordered Dulera 200 mcg-5 mcg/inh inhalation aerosol: 1 Puff, Inhalation, BID DuoNeb 0.5 mg-2.5 mg/3 mL inhalation solution: 3 mL, Nebulized Inhalation, RT_Q6H, PRN: Shortness of Breath Almaz-Q: 1 Cap, Oral, Daily Isopto Tears: 1 Drop, Eyes Both, QID Lantus: 10 Units, SubCutaneous, Daily Lipitor: 40 mg, Oral, Daily Lovenox: 40 mg, SubCutaneous, [id number] MiraLax: 17 Gram, Oral, Daily, PRN: Constipation [...] History of obstructive sleep apnea / IMO [id number] / Confirmed, Active Problems (6) Diabetes mellitus GERD (gastroesophageal reflux disease) History of obstructive sleep apnea HLD (hyperlipidemia) Hypothyroidism Morbid obesity Physical Examination VS/Measurements Vitals Signs (last 24 hrs) Last Charted Minimum Maximum Temp 98 (OCT 08 05:53) 97.9 (OCT 08 03:19) 98 (OCT 07 19:36) Mon HR 85 (OCT 08 05:53) 85 (OCT 07 12:00) 91 (OCT 07 13:00) Resp Rate 18 (OCT 08 05:53) 18 (OCT 08 05:53) H 38 (OCT 07 13:00) SBP 107 (OCT 08 05:53) 93 (OCT 07 15:00) H 149 (OCT 07 19:36) DBP 65 (OCT 08 05:53) L 50 (OCT 07 13:00) H 124 (SEP 23 19:36) MAP 77 (OCT 08 05:53) 71 (SEP 23 15:00) 86 (OCT 07 23:01) SpO2 96 (OCT 08 08:24) L 93 (OCT 07 19:36) 98 (OCT 07 15:00) General: Alert and oriented, No acute distress, [...] 19) 10.4 (CLAUDIA 18) HB L 8.6 (CLAUDIA 21) L 8.8 (CLAUDIA 20) L 9.8 (CLAUDIA 19) L 9.5 (CLAUDIA 18) HCT L 27.2 (CLAUDIA 21) L 26.9 (CLAUDIA 20) L 30.6 (CLAUDIA 19) L 28.2 (CLAUDIA 18) Plt 300 (CLAUDIA 21) 315 (CLAUDIA 20) H 443 (CLAUDIA 19) H 443 (CLAUDIA 18) Na 141 (CLAUDIA 24) 141 (CLAUDIA 23) 140 (CLAUDIA 22) 139 (CLAUDIA 21) K 3.9 (CLAUDIA 24) 3.8 (CLAUDIA 23) 4.2 (CLAUDIA 22) 3.7 (CLAUDIA 21) Cl 106 (CLAUDIA 24) 107 (CLAUDIA 23) 107 (CLAUDIA 22) 106 (CLAUDIA 21) CO2 29 (CLAUDIA 24) 28 (CLAUDIA 23) 27 (CLAUDIA 22) 28 (OCT 05) BUN H 29 (CLAUDIA 24) H 32 (CLAUDIA 23) H 36 (CLAUDIA 22) H 38 (CLAUDIA 21) Cr L 0.40 (CLAUDIA 24) L 0.30 (CLAUDIA 23) L 0.50 (CLAUDIA 22) L 0.40 (CLAUDIA 21) Glu R 105 (CLAUDIA 24) L 70 (CLAUDIA 23) H 118 (CLAUDIA 22) 85 (CLAUDIA 21) Ca 8.6 (CLAUDIA 24) L 8.1 (CLAUDIA 23) L 8.3 (CLAUDIA 22) L 8.1 (OCT 05) Lactic C 5.3 (CLAUDIA 16) C 5.7 [...] L 4.6 (CLAUDIA 15) ALB L 1.6 (SEP 19) L 2.0 (SEP 18) L 1.0 (CLAUDIA 16) L 0.9 (CLAUDIA 15) . Impression and Plan Distributive shock: due to 3rd spacing/lack of intravascular solute/oncotic pressure/wean pressors/on midodrine/add albumin today. ECHO with normal EF. and on midodrine (weaned off pressors); has had multiple doses albumin. Will recheck albumin levels, trial bumex po C.diff enteritis: increase oral vanc dosing started overnight to 250 qid. Complete the course. Added probiotic Hyponatremia, gross volume overload, anasarca -Na better and normalised; pt remains grossly volume overloaded Hypoalbuminemia with anasarca: Had 24 hour urine [...] ready but no rehab bed offers yet. adding in bumex, follow i/os, cr, recheck albumin level in am Time spent with above 25 minutes documented in this encounter Plan of Treatment Not on file documented as of this encounter Visit Diagnoses Not on filedocumented in this encounter
--- OUTSIDE RECORDS SUMMARY | 2024-10-17 13:13 | XMS_ITS | Encounter Summary ---
Author Organization [employer] ([place], [place], [place], [place]) Address [address] [place] [address] Care Team Providers Care Comedian Name Role Phone Unavailable Primary Care Provider Unavailabl e Encounter Details Date Type Department Care Team (Late st Contact Info) Description 10/08/2020 Transcribed Document [facility] [place] Family Medicine [address] [place] [address] ProviderRadha MD [address] [place] [address] Social History Tobacco Use Types Packs/Day Years Used Date Smoking Tobacco: Never Assessed Comments Unknown Sex and Gender Information Value Date Recorded Sex Assigned at Not on file Legal Sex Female 7:21 PM CDT Gender Identity Not on file Sexual Orientation Not on file documented as of this encounter Miscellaneous Notes * Sandra Conversion Note - Radha ProviderMD - 10/08/2020 2:00 AM CDT Edge Inker Heels Details Entered On: 10/08/2020 3:45 EDT Performed On: 10/08/2020 2:00 EDT by Yovana Whelan Non Emp RN Order Details Meds Administered Via Tube : No Yovana Whelan Non Emp RN - 10/09/2020 0:50 EDT Transport Mode Order Detail : Bed (including specialty) Isolation Precautions Order Detail : Contact precautions, Enteric precautions, Standard Precautions Order Detail : 0 IV Order Detail : 1 Oxygen Order Detail : 1 Yovana Whelan Non Emp RN - 10/08/2020 3:45 EDT Nurse Collect Order Detail : 1 Yovana Whelan Non Emp RN - 10/09/2020 0:50 EDT Lift/Transfer : Maximal assist Central Line Order Detail : No Room Service : Appropriate Arterial Line : No Patient Needs Meds Crushed/Liquid : Yes Yovana Whelan Non Emp RN - 10/08/2020 3:45 EDT Electronically signed by Angela [facility] Conversion Engineer Exhauster Cerner at 08/02/2022 6:24 PM CDT documented in this encounter Plan of Treatment Not on file documented as of this encounter Visit Diagnoses Not on filedocumented in this encounter
--- OUTSIDE RECORDS SUMMARY | 2024-10-17 13:13 | XMS_ITS | Encounter Summary ---
Author Organization [employer] ([place], [place], [place], [place]) Address [address] [place] [address] Care Team Providers Care Director Independent Name Role Phone Unavailable Primary Care Provider Unavailabl e Encounter Details Date Type Department Care Team (Late st Contact Info) Description 10/11/2020 Transcribed Document [facility] [place] [address] [place] [address] ProviderRadha MD [address] [place] [address] Social History Tobacco Use Types Packs/Day Years Used Date Smoking Tobacco: Never Assessed Comments Unknown Sex and Gender Information Value Date Recorded Sex Assigned at Not on file Legal Sex Female 7:21 PM CDT Gender Identity Not on file Sexual Orientation Not on file documented as of this encounter Miscellaneous Notes * Cerner Conversion Note - Historical ProviderMD - 10/11/2020 2:00 AM CDT Power Saw Operator Details Entered On: 10/11/2020 2:35 EDT Performed On: 10/11/2020 2:00 EDT by Yovana Whelan Non Emp [...] No Yovana Whelan Non Emp RN - 10/11/2020 2:34 EDT documented in this encounter Plan of Treatment Not on file documented as of this encounter Visit Diagnoses Not on filedocumented in this encounter
--- OUTSIDE RECORDS SUMMARY | 2024-10-17 13:13 | XMS_ITS | Encounter Summary ---
Author Organization [employer] ([place], [place], [place], [place]) Address [address] [place] [address] Care Team Providers Care Fruit Or Nut Picker Name Role Phone Unavailable Primary Care Provider Unavailabl e Encounter Details Date Type Department Care Team (Late st Contact Info) Description 10/01/2020 Transcribed Document [facility] [place] [address] [place] [address] ProviderRadha MD [address] [place] [address] Social History Tobacco Use Types Packs/Day Years Used Date Smoking Tobacco: Never Assessed Comments Unknown Sex and Gender Information Value Date Recorded Sex Assigned at Not on file Legal Sex Female 7:21 PM CDT Gender Identity Not on file Sexual Orientation Not on file documented as of this encounter Miscellaneous Notes * Cerner Conversion Note - Radha ProviderMD - 10/01/2020 2:29 PM CDT On Going Discharge Planning Entered On: 10/01/2020 14:32 EDT Performed On: 10/01/2020 14:29 EDT by KAROLINA PLEITEZ Rn-Tafe TeacherGrinding Supervisor Progress Note Discharge Arrangements : Patient Post-Acute Information Patient Name: LUH GLASS Gender: Female : [birth year] Age: 59 Years No Post-Acute Placement(s) Listed No Post-Acute Service(s) Listed No Curaspan Referral(s) Listed Discharge Options Discussed with Patient : Acute rehabilitation, Discharge transportation, DME, Home Health, Short term rehabilitation Barriers to Discharge Identified : Clinical Condition of Patient, Follow-Up appointments needed Barriers to Discharge Unresolved : Clinical Condition of Patient KAROLINA PLEITEZ Rn-Tafe Teacher - 10/01/2020 14:29 EDT Narrative Progress Note Narrative Progress Note : HD#1; ELOS 3; MRR; BOOST 7 - Transfer from [facility] for Generalized Edema; Nephrology consult; PN=347; RA; Doxycycline/Rocephin; met w/pt's adult children Leslie Lenka and Kishore Glass ([phone]) who states DCP will be return to [place] for ongoing rehab; explained pt will require a precert; updates clinicals sent to [facility] [place] and voicemail left for intake [phone]; [phone]. KAROLINA PLEITEZ, Rn-Tafe Teacher - 10/01/2020 14:29 EDT documented in this encounter Plan of Treatment Not on file documented as of this encounter Visit Diagnoses Not on filedocumented in this encounter
--- OUTSIDE RECORDS SUMMARY | 2024-10-17 13:13 | XMS_ITS | Encounter Summary ---
Author Organization [employer] ([place], [place], [place], [place]) Address [address] [place] [address] Care Team Providers Care Tank Cleaner Name Role Phone Unavailable Primary Care Provider Unavailabl e Encounter Details Date Type Department Care Team (Late st Contact Info) Description 10/01/2020 Transcribed Document [facility] [place] Medicine [address] [place] [address] ProviderRadha MD [address] [place] [address] Social History Tobacco Use Types Packs/Day Years Used Date Smoking Tobacco: Never Assessed Comments Unknown Sex and Gender Information Value Date Recorded Sex Assigned at Not on file Legal Sex Female 7:21 PM CDT Gender Identity Not on file Sexual Orientation Not on file documented as of this encounter Miscellaneous Notes * Cerner Conversion Note - Historical ProviderMD - 10/01/2020 5:00 PM CDT Chart Check - Review Order Profile Entered On: 10/01/2020 18:07 EDT Performed On: 10/01/2020 17:00 EDT by Alyse Sanchez RN Chart Check Powerplans Initiated/Discontinued as Appropriate : Yes All Active Orders Reviewed : Yes Alyse Sanchez RN - 10/01/2020 18:07 EDT Electronically signed by Angela [facility] Conversion Director Facilities Maintenance Cerner at 08/02/2022 6:20 PM CDT documented in this encounter Plan of Treatment Not on file documented as of this encounter Visit Diagnoses Not on filedocumented in this encounter
--- OUTSIDE RECORDS SUMMARY | 2024-10-17 13:13 | XMS_ITS | Encounter Summary ---
Author Organization [employer] ([place], [place], [place], [place]) Address [address] [place] [address] Care Team Providers Care Platform Inspector Name Role Phone Unavailable Primary Care Provider Unavailabl e Encounter Details Date Type Department Care Team (Late st Contact Info) Description 09/30/2020 Transcribed Document [facility] [place] [address] [place] [address] ProviderRadha MD [address] [place] [address] Social History Tobacco Use Types Packs/Day Years Used Date Smoking Tobacco: Never Assessed Comments Unknown Sex and Gender Information Value Date Recorded Sex Assigned at Not on file Legal Sex Female 7:21 PM CDT Gender Identity Not on file Sexual Orientation Not on file documented as of this encounter Miscellaneous Notes * Cerner Conversion Note - Radha ProviderMD - 09/30/2020 10:54 AM CDT Nutrition Assessment Entered On: 09/30/2020 13:11 EDT Performed On: 09/30/2020 13:11 EDT by Mariam Cohen Dietitiever Nutrition Assessment Current Nutrition Regimen Comment : 09/30: Rec'd consult for BMI>40 (BMI=63.4) + consult for malnutrition. Spoke w/ pt today; reports okay appetite and eating ~50% of her meals. Reports port captain pt was on 800 kcal diet x [address] d/w pt that we do not recommend that low of kcal diet. Pt understood and reports she did not plan on continuing. Attempting to take it slow by not eating 100% of her meals. Pt lost ~84#/27% x 4 months (significant but pt was purposely eating low kcal diet). Pt has now gained wt back to fluid overload. RD noted moderate orbital/temporal/buccal wasting. Pt not interested in ONS at this time; on FR and plan to focus on food intakes. Will continue to monitor. Dx; hyponatremia, fluid overload w/ anasarca, acute cystitis PMH: T2DM, HTN, HLD, GERD, morbid obesity Meds: albumin, Lipitor, abx, lovenox, lantus, lispro, synthroid, PPI Labs; Na 127, Cl 95, Glu 230, BUN 55, Alb 1, FSBG 200/259/226, LAC 5.3, WBC 11, PLT 468 Skin: 3-4+ edema/anasarca; no skin breakdown GI: LBM 09/30, +BS Diet: 60 gm CHO, 1.5 L FR Intakes: 80% x 1 meal Ht; 62 Wt: 346#/157.3 kg (09/30) Wt hx per pt: 314# (Apr 2020), 230# (July 2020) BMI: 63.4 IBW: 110# Mariam Cohen Dietitian - 09/30/2020 15:57 EDT Nutrition Assessment Reason : Automatic referral Mariam Cohen Dietitian - 09/30/2020 13:11 EDT Nutrition Diagnoses Oral or Nutrition Support Intake : Inadequate oral intake Oral or Nutr Support Intake Related To : decreased appetite Oral or Nutr Support Intake Evidenced by : ~50% of meals per pt 80% x 1 meal Oral or Nutrition Support Intake Status : Active Mariam Cohen Dietitian - 09/30/2020 15:57 EDT Nutrition Interventions Meals and Snacks : Carbohydrate-modified diet, Fluid-modified diet Mariam Cohen Dietitian - 09/30/2020 15:57 EDT Monitoring/Evaluation Energy Intake : Total energy intake Food Intake : Amount of food Protein Intake : Total protein Weight Status : Weight Maintanence Gastrointestinal Function : Bowel Function Mariam Cohen Dietitian - 09/30/2020 15:57 EDT Nutrition Recommendations Dietitian Recommendations : 1. Continue 60 gm CHO diet, 1500 ml FR. Goal: >50% PO diet 2. Monitor BG levels and adjust insulin prn. Goal: 70-180 3. Monitor wt 2x/wk. Pt +fluid. Goal: no unintended wt changes moderate risk Nutrition Care Level : Moderate Mariam Cohen Dietitian - 09/30/2020 15:57 EDT documented in this encounter Plan of Treatment Not on file documented as of this encounter Visit Diagnoses Not on filedocumented in this encounter
--- OUTSIDE RECORDS SUMMARY | 2024-10-17 13:13 | XMS_ITS | Encounter Summary ---
Author Organization [employer] ([place], [place], [place], [place]) Address [address] [place] [address] Care Team Providers Care Machinist Automotive Name Role Phone Unavailable Primary Care Provider Unavailabl e Encounter Details Date Type Department Care Team (Late st Contact Info) Description 10/08/2020 Transcribed Document [facility] [place] [address] [place] [address] ProviderRadha MD [address] [place] [address] Social History Tobacco Use Types Packs/Day Years Used Date Smoking Tobacco: Never Assessed Comments Unknown Sex and Gender Information Value Date Recorded Sex Assigned at Not on file Legal Sex Female 7:21 PM CDT Gender Identity Not on file Sexual Orientation Not on file documented as of this encounter Miscellaneous Notes * Cerner Conversion Note - Radha Reed MD - 10/08/2020 5:54 PM CDT On Going Discharge Planning Entered On: 10/08/2020 17:55 EDT Performed On: 10/08/2020 17:54 EDT by LIAM COWAN Rn-Inset CutterObiee [employer]ia Solution Architect Progress Note Discharge Arrangements : Patient Post-Acute Information Patient Name: LUH BOSCH Gender: Female : [birth year] Age: 59 Years No Post-Acute Placement(s) Listed No Post-Acute Service(s) Listed No Curaspan Referral(s) Listed Discharge Options Discussed with Patient : Acute rehabilitation, Discharge transportation, DME, Home Health, Short term rehabilitation Barriers to Discharge Identified : Clinical Condition of Patient, Follow-Up appointments needed, No [facility] bed available Barriers to Discharge Unresolved : Clinical Condition of Patient, No mcc bed available Is the Patient Meeting Medical Necessity : No Did you Document Avoidable Days? : Yes Did you Attend Multidisciplinary Rounds? : Yes LIAM COWAN, Rn-Inset Cutter - 10/08/2020 17:54 EDT Narrative Progress Note Narrative Progress Note : ELOS 3, hospital day 8, RRS 59, she needs a detention care skilled bed, referrals sent to Radha mcarthur with [facility] assessing for bariatric bed at [facility] or [facility] Historical Progress Note : Received call from [facility] [phone] advising CM their facility is unable to meet pt's needs - r/t C-Diff; weight - non-ambulatory w/ bed activity; pt on transfer to [facility] - notified CM. KAROLINA PLEITEZ Rn-Inset Cutter - 10/07/20 11:01:00 HD#6; ELOS 3; MRR; BOOST 7 - GenEdema/Anasarca; received voice mail from [facility] - [facility] requesting additional clinical information - faxed this am; awaiting return call to confirm precert has been initiated. KAROLINA PLEITEZ Rn-Inset Cutter - 10/07/20 07:45:25 Dr. Pemberton tells CM pt is ready to transition and is appropriate for precert to be initiated with short-term rehab; spoke with pt and she is in agreement to go to [facility]. Contacted [facility] and she will initiate the precert and confirm with Dr. Whittaker. KAROLINA PLEITEZ Rn-Inset Cutter - 10/06/20 13:57:22 HD#5; ELOS 3; MRR; BOOST 7 - Generalized Edema/Anasarca = 02/2L; Vancomycin/Midodrine; declined to stand w/therapy - will need rehab r/t ongoing weakness; discussion w/pt's family about need for rehab - possible long-term placement if unable to progress; [facility] interested to discuss with MD; [facility] unable to meet pt's needs; continue to follow. KAROLINA PLEITEZ Rn-Inset Cutter - 10/06/20 08:58:40 Received call from pt's daughter Leslie Og and she requested referrals be sent to [facility] in [place], [place] ([employer]) and [facility] in [place], [place] ([employer]). PLEITEZ, KAROLINA, Rn-Inset Cutter - 10/05/20 15:28:00 HD#4; ELOS 3; MRR; BOOST 7 - GenEdema/Hypernatremia/Anasarca - 02=2L; B/P 105/58; PO Vancomycin; Midodrine 10 mg TID; lytes to be replaced; Nephrology has signed off; pt MaxAx2 w/therapy; updates sent thru [facility] to [facility] and left another message for f/u to confirm pt may return and anticipated turn around time for precert; DCP return for rehab; will likely require ambulance for transport; pt on transfer out of [facility]. KAROLINA PLEITEZ Rn-Inset Cutter - 10/05/20 13:37:58 HD#4; ELOS 3; MRR; BOOST 7 - GenEdema/Hypernatremia/Anasarca - 02=2L; B/P 105/58; PO Vancomycin; Midodrine 10 mg TID; lytes to be replaced; Nephrology has signed off; pt MaxAx2 w/therapy; updates sent thru [employer] to [facility] and left another message for f/u to confirm pt may return and anticipated turn around time for precert; DCP return for rehab; will likely require ambulance for transport; pt on transfer out of [facility]. Spoke with [facility] and advised they will be unable to meet patient's needs; referral cancelled. sophia Spoke with pt's son Kishore and advised pt may require long-term care placement; he will discuss options with his sister and advise ; initial referrals sent thru [facility] to [facility]. KAROLINA PLEITEZ, Rn-Inset Cutter - 10/05/20 13:54:46 HD#1; ELOS 3; MRR; BOOST 7 - GenEdema/Hypernatremia/Anasarca - improving - 02=2L; Levo gtt; Midodrine; IV Bumex; Nephrology - 24 hr urine to eval for nephrotic syndrome; +CDiff; Rocephin/Doxy/Vanc; ltd work w/therapy - refusing OOB and knee/hip AROM; pt needs to be encouraged; DCP rehab - left message for [facility] [phone] to confirm receipt of referral; pt will need precert. KAROLINA PLEITEZ, Rn-Inset Cutter - 10/02/20 12:06:37 HD#1; ELOS 3; MRR; BOOST 7 - Transfer from [facility] for Generalized Edema; Nephrology consult; OV=518; RA; Doxycycline/Rocephin; met w/pt's adult children Leslie Og and Kishore Bosch ([phone]) who states DCP will be return to [facility] for ongoing rehab; explained pt will require a precert; updates clinicals sent to [facility] and voicemail left for intake [phone]; [phone]. KAROLINA PLEITEZ, Rn-Inset Cutter - 10/01/20 14:32:34 LIAM COWAN Rn-Inset Cutter - 10/08/2020 17:54 EDT Electronically signed by Galen Miller Conversion Occupational Therapy Program Director Cerner at 08/02/2022 6:25 PM CDT documented in this encounter Plan of Treatment Not on file documented as of this encounter Visit Diagnoses Not on filedocumented in this encounter
--- OUTSIDE RECORDS SUMMARY | 2024-10-17 13:13 | XMS_ITS | Encounter Summary ---
Author Organization [employer] ([place], [place], [place], [place]) Address [address] [place] [address] Care Team Providers Care Electrical Instrumentation Technician Name Role Phone Unavailable Primary Care Provider Unavailabl e Encounter Details Date Type Department Care Team (Late st Contact Info) Description 09/29/2020 Transcribed Document [facility] [place] Medicine [address] [place] [address] ProviderRadha MD [address], [place] [id number] Social History Tobacco Use Types Packs/Day Years Used Date Smoking Tobacco: Never Assessed Comments Unknown Sex and Gender Information Value Date Recorded Sex Assigned at Not on file Legal Sex Female 7:21 PM CDT Gender Identity Not on file Sexual Orientation Not on file documented as of this encounter Miscellaneous Notes * [employer]ner Conversion Note - Radha ProviderMD - 09/29/2020 10:22 PM CDT Meds to Bed Enrollment Entered On: 09/30/2020 12:58 EDT Performed On: 09/29/2020 22:22 EDT by Beatrice Crum Pharmacist Meds to Bed Enrollment Patient Enrollment Decision: : No/do not enroll in meds to bed program Reason for Declining Meds to Bed Program: : Prefer to use home pharmacy Beatrice Crum Pharmacist - 09/30/2020 12:58 EDT documented in this encounter Plan of Treatment Not on file documented as of this encounter Visit Diagnoses Not on filedocumented in this encounter
--- OUTSIDE RECORDS SUMMARY | 2024-10-17 13:13 | XMS_ITS | Encounter Summary ---
Author Organization [employer] ([place], [place], [place], [place]) Address [address] [place] [address] Care Team Providers Care Property Claim Rep Name Role Phone Unavailable Primary Care Provider Unavailabl e Encounter Details Date Type Department Care Team (Late st Contact Info) Description 09/30/2020 Transcribed Document [facility] [place] Family Medicine [address] [place] [address] ProviderRadha MD [address] [place] [address] Social History Tobacco Use Types Packs/Day Years Used Date Smoking Tobacco: Never Assessed Comments Unknown Sex and Gender Information Value Date Recorded Sex Assigned at Not on file Legal Sex Female 7:21 PM CDT Gender Identity Not on file Sexual Orientation Not on file documented as of this encounter Miscellaneous Notes * [employer]ner Conversion Note - Historical ProviderMD - 09/30/2020 1:07 PM CDT UM Authorization Entered On: 09/30/2020 13:08 EDT Performed On: 09/30/2020 13:07 EDT by Daisy Davison Rn-Utilization Review Primary Insurance Authorization Authorization and Policy Numbers : Insurance 1 Health Plan: [employer] PPO Policy Number: [id number] Authorization Number: Insurance 2 Health Plan: MED[place]ID [place] Policy Number: [id number] Authorization Number: Insurance Primary Name : [employer] PPO Policy Number: [id number] Authorization Status-Primary : Awaiting callback Authorized Service Begin Date-Primary : 09/29/2020 EDT Historical Authorization Comments-Primary : No Authorization Comments Found Daisy Davison Rn-Utilization Review - 09/30/2020 13:07 EDT Electronically signed by Angela [facility] Conversion Sales Agent Cerner at 08/02/2022 6:26 PM CDT documented in this encounter Plan of Treatment Not on file documented as of this encounter Visit Diagnoses Not on filedocumented in this encounter
--- OUTSIDE RECORDS SUMMARY | 2024-10-17 13:13 | XMS_ITS | Encounter Summary ---
Author Organization [employer] ([place], [place], [place], [place]) Address [address] [place] [address] Care Team Providers Care Grocery Store Associate Name Role Phone Unavailable Primary Care Provider Unavailabl e Encounter Details Date Type Department Care Team (Late st Contact Info) Description 09/30/2020 Transcribed Document [facility] [place] Family Medicine [address] [place] [address] ProviderRadha MD [address] [place] [address] Social History Tobacco Use Types Packs/Day Years Used Date Smoking Tobacco: Never Assessed Comments Unknown Sex and Gender Information Value Date Recorded Sex Assigned at Not on file Legal Sex Female 7:21 PM CDT Gender Identity Not on file Sexual Orientation Not on file documented as of this encounter Miscellaneous Notes * Cerner Conversion Note - Radha Reed MD - 09/30/2020 9:38 AM CDT Patient: LUH GLASS Age: 59 years Sex: Female : 1960 Associated Diagnoses: None Author: ABELINO HILL MD 1- Mild Hyponatremia - Corrected for hyperglycemia - 130 - Volume overload with hypotension - Likely appropriate release of ADH from intravascular volume depletion. On bumex at home. 2- Anasarca 3- Low albumin level 4- Hypotension Plan: - Urine sodium - Urine and serum osmolality - Free water restriction 1 lit /day - Albumin infusion - Midodrine - Urine lytes and UA - serial sodium monitoring. Thank you very much for the consult. WIll follow along. [id number] Electronically signed by Angela [facility] Conversion Physician Relations Representative Sanrda at 08/02/2022 6:21 PM CDT documented in this encounter Plan of Treatment Not on file documented as of this encounter Visit Diagnoses Not on filedocumented in this encounter
--- OUTSIDE RECORDS SUMMARY | 2024-10-17 13:13 | XMS_ITS | Encounter Summary ---
Author Organization [employer] ([place], [place], [place], [place]) Address [address] [place] [address] Care Team Providers Care Childcare Center Director Name Role Phone Unavailable Primary Care Provider Unavailabl e Encounter Details Date Type Department Care Team (Late st Contact Info) Description 10/01/2020 Transcribed Document [facility] – [place] Family Medicine [address] [place] [address] ProviderRadha MD [address] [place] [address] Social History Tobacco Use Types Packs/Day Years Used Date Smoking Tobacco: Never Assessed Comments Unknown Sex and Gender Information Value Date Recorded Sex Assigned at Not on file Legal Sex Female 7:21 PM CDT Gender Identity Not on file Sexual Orientation Not on file documented as of this encounter Miscellaneous Notes * Cerner Conversion Note - Radha ProviderMD - 10/01/2020 9:52 AM CDT Admission History, Adult Entered On: 10/01/2020 9:53 EDT Performed On: 10/01/2020 9:52 EDT by Alyse Sanchez RN Advance Directive Patient has Advance Directive *Q : No, patient refuses Advance Directive information Alyse Sanchez RN - 10/01/2020 9:52 EDT Anesthesia/Transfusion History Family History of Anesthesia Reaction : No prior transfusion(s) Blood Transfusion Acceptable to Patient : Yes Transfusion History : Prior anesthesia without reaction Family History of Anesthesia Reaction : None Alyse Sanchez RN - 10/01/2020 16:15 EDT Functional Assessment Living Situation : Home Patient Lives With : Alone Persons Assisting Patient at Home : Alone Current Home Treatments : Blood glucose monitoring, CPAP Professional Skilled Services : None Alyse Sanchez RN - 10/01/2020 16:15 EDT General Info Want Family/Rep/Phys Notified of Admit : No Emergency Contact #1 : sandoval pacheco Emergency Contact #1 Emergency Contact #1 Relationship : daughter Emergency Contact #2 : frandy paul Emergency Contact #2 Emergency Contact #2 Relationship : son Primary Language : Lao Communication Barrier : None Clinical Resource Director Needed : No Alyse Sanchez RN - 10/01/2020 9:52 EDT Fall Risk Scales ABCs Fall Injury Risk Identification : Bones ABC Fall Injury Risk : Moderate to high injury risk Injury Moderate to High Risk Interventions : Patient room close to nurses station, Transport methods appropriate to patient ARBOLEDA Hx Falls Immediate/Within 3 Months : No Arboleda Secondary Diagnosis : Yes ARBOLEDA Use of Ambulatory Aid : Bed rest/Nurse assist ARBOLEDA IV Therapy or IV Access : Yes Arboleda Gait/Transferring : Normal, bedrest, immobile Arboleda Mental Status : Oriented to own ability Arboleda Fall Risk Score : 35 ARBOLEDA Fall Scale Risk Level : 25-45 Medium Risk [place] Fall Interventions : Adequate lighting, Bed in low position, Call device within reach, Frequent orientation to call device, Frequent orientation to surroundings, Non-slip footwear, Personal items within reach, Reinforced to call for assistance before getting out of bed, Room free of clutter/spills, Upper side-rails up, Wheels locked, Wires/Cords secured Fall Moderate to High Risk Interventions : Patient room close to nurses station, Transport methods appropriate to patient Barriers to Learning : None evident Learning Style Preferences Patient : Verbal explanation Fall Risk Scale Calc Temp : 0 Alyse Sanchez RN - 10/01/2020 16:15 EDT Health Histories Smoking Status : Never (less than 100 in lifetime; none in last 30 days) Smokeless Tobacco Status : Never Alyse Sanchez RN - 10/01/2020 16:15 EDT Social History (As Of: 10/01/2020 16:17:32 EDT) Height and Weight, Clinical Dosing Height Source : Stated Height Entry Format : [place] Height, Feet : 5 ft(Converted to: 152 cm, 60 Inch) Height, Inches : 2 Inch(Converted to: 0 ft 2 Inch, 5.08 cm) Clinical Height : 157.48 cm Weight Source : Standing scale Weight Entry Format : [place] Clinical Dosing Weight : 157.27 kg Weight, Pounds : 346 lb Body Surface Area (BSA) : 2.42 m2 Body Mass Index : 63.4 kg/m2 (>HHI) [place] Body Weight : 50 kg Alyse Sanchez RN - 10/01/2020 16:15 EDT Infectious Disease History Has the patient ever been tested for COVID-19? : Yes, Patient stated results Negative Date of COVID-19 test known? : Yes Date of COVID-19 Test : 09/29/2020 EDT Does patient have symptoms of COVID-19? : No COVID19 Screening : No Experiencing Infectious Disease Symptoms : No symptoms Physical contact outside [place] in the last 30 days : No Infectious Disease History : None Tuberculosis Symptoms : None Alyse Sanchez RN - 10/01/2020 16:15 EDT Influenza Vaccine Asmt, Adult Previous Vaccines from Immunization Schedule : No qualifying data available. Influenza Immunization, Current Season : Yes Alyse Sanchez RN - 10/01/2020 16:15 EDT Pneumococcal Vaccine Previous Vaccines from Immunization Schedule : No qualifying data available. Pneumonia Immunization Received : Yes Alyse Sanchez RN - 10/01/2020 16:15 EDT Order Details Transport Mode Order Detail : Stretcher/[place] Isolation Precautions Order Detail : Standard Precautions Order Detail : 0 Lift/Transfer : Maximal assist Central Line Order Detail : No Room Service : Appropriate Arterial Line : No Patient Needs Meds Crushed/Liquid : No Alyse Sanchez RN - 10/01/2020 16:15 EDT Nutrition History Eating Poorly Due to Decreased Appetite : No Unplanned Weight Loss in Past 3-6 Months : No Malnutrition Screening Tool Total(mal) : 0 Malnutrition Screening Tool Risk Level : Patient not at risk Alyse Sanchez RN - 10/01/2020 16:15 EDT [place] Suicide Severity Rating Scale (C-SSRS) CSSRS Past Month Wish to be : No CSSRS Past Month Suicidal Thoughts : No CSSRS Lifetime Suicide Behavior : No Suicide Severity Rating Score : 0 Suicide Severity Rating : No Additional Care Required at this time Alyse Sanchez RN - 10/01/2020 16:15 EDT Psychosocial History Currently in Unsafe Situation : No Alyse Sanchez RN - 10/01/2020 16:15 EDT Sleep Apnea Risk Assmt BiPAP/CPAP Ordered for Home Use : Yes Hx of Obstructive Sleep Apnea Diagnosis : Yes BiPAP/CPAP Used at Home : No Reason BiPAP/CPAP Not Used at Home : digna me Age over 50 Years Old : Yes Gender Male : No Alyse Sanchez RN - 10/01/2020 16:15 EDT Valuables and Belongings Valuables and Belongings : Clothing Clothing : Common streetwear Clothing Disposition : Bedside Alyse Sanchez RN - 10/01/2020 16:15 EDT Electronically signed by Angela [facility] Conversion College Intern Cerner at 08/02/2022 6:22 PM CDT documented in this encounter Plan of Treatment Not on file documented as of this encounter Visit Diagnoses Not on filedocumented in this encounter
--- OUTSIDE RECORDS SUMMARY | 2024-10-17 13:13 | XMS_ITS | Encounter Summary ---
Author Organization [employer] ([place], [place], [place], [place]) Address [address] [place] [address] Care Team Providers Care Automobile Mechanic Apprentice Name Role Phone Unavailable Primary Care Provider Unavailabl e Encounter Details Date Type Department Care Team (Late st Contact Info) Description 09/29/2020 Transcribed Document [facility] [place] [address] [place] [address] ProviderRadha MD [address] [place] [address] Social History Tobacco Use Types Packs/Day Years Used Date Smoking Tobacco: Never Assessed Comments Unknown Sex and Gender Information Value Date Recorded Sex Assigned at Not on file Legal Sex Female 7:21 PM CDT Gender Identity Not on file Sexual Orientation Not on file documented as of this encounter Miscellaneous Notes * Cerner Conversion Note - Radha ProviderMD - 09/29/2020 11:53 PM CDT Evaluation, Occupational Therapy Entered On: 09/30/2020 15:39 EDT Performed On: 09/30/2020 15:09 EDT by IVY LACEY, OTR/L General Information, OT Visit Type, OT : Initial evaluation Patient Orders : Order Date Order Ordering 09/29/2020 23:53 OT Evaluation and Treatment Ordered By: JADE CURIEL DO Active Diagnoses : No Qualifying Diagnoses Therapy Diagnosis, OT : Decrease in I in ADL's and fxl mobiilty due to weakness and medical condition Admission Date : 09/30/2020 13:11 Co-treated by, OT : Physical Therapist Personal Devices : Personal Devices No Devices Recorded Assistive Devices : Assistive Devices No Devices Recorded General Information Comment, OT : 59 yr old female admit with acute chronic hyponatremia, generalized edema, LE weakness and weeping Hx: DM II, HLD, HTN, GERD, morbid obesity Pt states she walked about a week ago at rehab as she was discharge from inpatient rehab to hospitalization for hyponatremia IVY LACEY OTR/Susanna - 09/30/2020 15:25 EDT General Status Patient Received Status : Supine in bed, HOB elevated Treatment Start Time : 09/30/2020 14:44 EDT Patient Left Status : Supine in bed, All needs met and within reach RN/PCT Informed Comment : Derik MEZA'd to see pt this date for eval Treatment End Time : 09/30/2020 15:09 EDT Treatment Time : 25 Minute(s) IVY LACEY OTR/Susanna - 09/30/2020 15:25 EDT History and Environment, OT Living Situation, Therapy : Home Patient Lives With : Alone, Dependent Child/Children Professional Skilled Services : None Persons Providing Information : Patient Home Equipment, Therapy : Commode, Shower Equipment, Walker, Wheelchair Commode : Commode, bedside Shower Equipment : Shower Chair, with back Walker Comment : Rollator Wheelchair : Wheelchair, standard Wheelchair Comment : But cannot fit in at this time Home Setup : One story Stairs : Yes Stair Location(s) : Outside Outside Stairs, Number of Steps : 1 Outside Stairs Comment : 1 small 2 inch step/threshold Railing Outside : No Ramp : No IVY LACEY OTR/Susanna - 09/30/2020 15:25 EDT Prior LOF Bathing, OT : Independent Prior LOF Bed Mobility : Independent Prior LOF Upper Body Dressing, OT : Independent Prior LOF Lower Body Dressing, OT : Independent Prior LOF Toileting : Independent Prior LOF Transfer : Independent Prior LOF Grooming, OT : Independent Prior LOF Wheel Chair Mobility : Independent Prior LOF for IADLs, OT : Assist needed IVY LACEY OTR/Susanna - 09/30/2020 15:25 EDT Prior LOF Assist with ADL Comment : Mod I History and Environment Comment, OT : Pt lives home alone but 13 yr old grand daughter stays with her and helps with laundry and cleaning mostly. Pt was driving and fixing meals while using rollator and sitting on seat to rest as needed. IVY LACEY OTR/Susanna - 09/30/2020 15:25 EDT Upper Extremity Upper Extremity Dominance : Right Right UE Active ROM : WFL Right UE Strength : Impaired Left UE Active ROM : WFL Left UE Strength : Impaired IVY LACEY OTR/Susanna Flores 09/30/2020 15:25 EDT Right Upper Extremity MMT Shoulder Flexion 0-180 : 3+/fair Shoulder Extension 0-60 : 3+/fair Shoulder Abduction 0-180 : 3+/fair Shoulder Adduction 0-180 : 3+/fair Shoulder Internal Rotation 0-90 : 3+/fair Shoulder External Rotation 0-90 : 3+/fair Elbow Flexion 0-150 : 4/good Elbow Extension 0-0 : 4/good Wrist Flexion 0-80 : 3+/fair Wrist Extension 0-70 : 3+/fair Forearm Pronation 0-70 : 3+/fair Forearm Supination 0-85 : 3+/fair Ulnar Deviation 0-45 : 3+/fair RadialDeviation 0-20 : 3+/fair IVY LACEY OTR/Susanna - 09/30/2020 15:25 EDT Left Upper Extremity MMT Shoulder Flexion 0-180 : 3+/fair Shoulder Extension 0-60 : 3+/fair Shoulder Abduction 0-180 : 3+/fair Shoulder Adduction 0-180 : 3+/fair Shoulder Internal Rotation 0-90 : 3+/fair Shoulder External Rotation 0-90 : 3+/fair Elbow Flexion 0-150 : 4/good Elbow Extension 0-0 : 4/good Wrist Flexion 0-80 : 3+/fair Wrist Extension 0-70 : 3+/fair Forearm Pronation 0-70 : 3+/fair Forearm Supination 0-85 : 3+/fair Ulnar Deviation 0-45 : 3+/fair RadialDeviation 0-20 : 3+/fair IVY LACEY OTR/Susanna Flores 09/30/2020 15:25 EDT Self Care/Home Management, OT Self Feeding Assist Level, OT : Independent, complete Grooming Assist Level, OT : Assist, minimal Bathing Assist Level, OT : Assist, moderate Upper Body Dressing Assist Level, OT : Assist, moderate Lower Body Dressing Assist Level, OT : Assist, total Toileting Assist Level : Assist, total Toilet Transfer Assist Level : Assist, total IVY LACEY OTR/Susanna Flores 09/30/2020 15:25 EDT Functional Mobility Mobility Grid Bed Roll Left : Rehab Maximal assistance (Comment: x2 [IVY LACEY, OTR/L - 09/30/2020 15:25 EDT] ) Bed Roll Right : Rehab Maximal assistance (Comment: x2 [IVY LACEY, OTR/L - 09/30/2020 15:25 EDT] ) Bed Scooting : Rehab Total assistance (Comment: x2 [IVY LACEY, OTR/Susanna - 09/30/2020 15:25 EDT] ) IVY LACEY, OTR/Susanna - 09/30/2020 15:25 EDT Cognition Assessment, OT Orientation : Oriented x 4 IVY LACEY OTR/Susanna - 09/30/2020 15:25 EDT Indication Assessment, OT Occupational Therapy Indicated : Yes Problem List, OT : Impaired, bed mobility, Impaired, activities daily living, Impaired, endurance tolerance, Impaired functional mobility, Impaired, sitting balance, Impaired, standing balance, Impaired, strength, Impaired, transfers, Impaired, wheelchair mobility, Pain limiting function Potential Barriers, OT : Pain Rehabilitation Potential, OT : Fair IVY LACEY OTR/Susanna - 09/30/2020 15:25 EDT Plan of Care, OT OT Tx Plan/Goals Established w Patient : Yes OT Frequency Rehab : Five days per week OT Duration Rehab : Fourteen days OT Treatments Planned : Activities of daily living, Balance training, Functional mobility training, Pain management, Safety education, Therapeutic activities, Therapeutic exercises Plan of Care Comment, OT : POC initiated IVY LACEY OTR/Susanna - 09/30/2020 15:25 EDT [facility] Goals, OT Grooming LTG Grid Goal #1 Activity : Grooming Assist : Supervision or set up Date to Meet : 10/14/2020 EDT Goal Status : Initial goal Comment : Seated EOB IVY LACEY OTR/Susanna - 09/30/2020 15:25 EDT Toilet Transfer LTG Grid Goal #1 Activity : Toilet Transfer, Stand Pivot Sit Assist : Assist, moderate Date to Meet : 10/14/2020 EDT Goal Status : Initial goal IVY LACEY OTR/Susanna - 09/30/2020 15:25 EDT Bed Mobility/ Bed Transfer LTG Grid Goal #1 Activity : Bed Mobility, Supine to Sit Assist : Assist, moderate Date to Meet : 10/14/2020 EDT Goal Status : Initial goal IVY LACEY OTR/L - 09/30/2020 15:25 EDT Treatment Note Subjective Comment : Pt agreeable and cooperative to participate in OT eval/interview with reluctancy for any additional movement Patient's Response to Treatment : Pt with severe pain with movement Additional Objective Information : Pt semi supine in bed on arrival and agreeable to OT eval/interview. Pt with reluctancy to complete bed mobility due to pain with movement, but chux soiled under pt and agreeable with A x3. Pt max A x2 to roll and Max A for pericare. Pt total A x2 to scoot up in bed. Pt engaged in BUE ROM and strength assessment 3+/5 for BUE movements through all planes, but 4/5 for elbow flex/ext with triceps. Pt left semi supine in bed with all needs met and call light in reach. Assessment : Pt will benefit from skilled OT services for improving balance, strength, core stability, endurance, safety, education, and ax tolerance for increased I in ADL's, fxl mobility/transfers and participation in valued daily ax's. Plan for Treatment : POC initiated IVY LACEY OTR/L - 09/30/2020 15:25 EDT Pain Assessment Pain Scaled Used : 0-10 Pain scale Pain Score Pre-Intervention : 3 Pain Score During-Intervention : 10 Location : Abdominal, Knees, bilateral, Legs, bilateral IVY LACEY OTR/L - 09/30/2020 15:25 EDT Image 1 - Images currently included in the form version of this document have not been included in the text rendition version of the form. Anticipated Discharge Needs, OT/PT Anticipated Discharge to : Unit, rehabilitation IVY LACEY OTR/L - 09/30/2020 15:[address] [facility] OT Charges OT Selfcare/Hm Mgmt Ea 15 Min : 1 OT Eval Low Complexity : 1 IVY LACEY OTR/L - 09/30/2020 15:25 EDT documented in this encounter Plan of Treatment Not on file documented as of this encounter Visit Diagnoses Not on filedocumented in this encounter
--- OUTSIDE RECORDS SUMMARY | 2024-10-17 13:13 | XMS_ITS | Encounter Summary ---
Author Organization [employer] ([place], [place], [place], [place]) Address [address] [place] [address] Care Team Providers Care Area Attendant Name Role Phone Unavailable Primary Care Provider Unavailabl e Encounter Details Date Type Department Care Team (Late st Contact Info) Description 10/07/2020 Transcribed Document [facility] Radiology [address] [place] [address] Malu Pemberton MD [address] [place], [place] [id number] Social History Tobacco Use Types Packs/Day Years Used Date Smoking Tobacco: Never Assessed Comments Unknown Sex and Gender Information Value Date Recorded Sex Assigned at Not on file Legal Sex Female 7:21 PM CDT Gender Identity Not on file Sexual Orientation Not on file documented as of this encounter Miscellaneous Notes * [employer] Conversion Note - Malu Pemberton MD - 10/07/2020 5:31 PM EDT Patient: LUH GLASS Age: 59 years Sex: Female : 1960 Associated Diagnoses: None Author: MALU PEMBERTON MD-INT Basic Information Date of encounter 10/07/20 Patient is awake and alert Had some nausea earlier and resolved No fever Physical Examination VS/Measurements Vitals Signs (last 24 hrs) Last Charted Minimum Maximum Temp 97.9 (OCT 07 15:00) 97.9 (OCT 07 15:00) 98.1 (OCT 06 20:00) Mon HR 87 (OCT 07 15:00) 80 (OCT 07 00:00) 92 (OCT 07 07:00) Resp Rate H 38 (OCT 07 13:00) L 7 (OCT 07 04:00) H 38 (OCT 07:00) SBP 93 (OCT 07 15:00) 92 (OCT 07 04:00) 116 (OCT 06 20:00) DBP 62 (OCT 07 15:00) L 50 (OCT 07 13:00) 73 (OCT 07 09:00) MAP 71 (OCT 07:) 66 (OCT 07 04:00) 89 (OCT 07:00) SpO2 98 (OCT 07:) 95 (OCT 06 19:00) 98 (OCT 07:) General: Alert and oriented, No acute distress, [...] Hol doff diurectics (discussed with nephrology) and use it prn, and on midodrine (weaned off pressors) C.diff enteritis: increase oral vanc dosing started [...] yet. Time spent with above 25 minutes documented in this encounter Plan of Treatment Not on file documented as of this encounter Visit Diagnoses Not on filedocumented in this encounter
--- OUTSIDE RECORDS SUMMARY | 2024-10-17 13:13 | XMS_ITS | Encounter Summary ---
Author Organization [employer] ([place], [place], [place], [place]) Address [address] [place] [address] Care Team Providers Care Mine Engineering Supervisor Name Role Phone Unavailable Primary Care Provider Unavailabl e Encounter Details Date Type Department Care Team (Late st Contact Info) Description 10/07/2020 Transcribed Document [facility] Family Medicine [address] [place] [address] ProviderRadha MD [address] [place] [address] Social History Tobacco Use Types Packs/Day Years Used Date Smoking Tobacco: Never Assessed Comments Unknown Sex and Gender Information Value Date Recorded Sex Assigned at Not on file Legal Sex Female 7:21 PM CDT Gender Identity Not on file Sexual Orientation Not on file documented as of this encounter Miscellaneous Notes * Cerner Conversion Note - Radha ProviderMD - 10/07/2020 10:58 AM CDT On Going Discharge Planning Entered On: 10/07/2020 11:01 EDT Performed On: 10/07/2020 10:58 EDT by KAROLINA PLEITEZ Rn-Customer Success RepresentativePaintings Restorer Progress Note Discharge Arrangements : Patient Post-Acute Information Patient Name: LUH BOSCH Gender: Female : 62 Age: 59 Years Ruth Referral(s): Service: Organization: Business Address: Phone Number: [facility] [address] [place], [address] Discharge Options Discussed with Patient : Acute rehabilitation, Discharge transportation, DME, Home Health, Short term rehabilitation Barriers to Discharge Identified : Clinical Condition of Patient, Follow-Up appointments needed Barriers to Discharge Unresolved : Clinical Condition of Patient KAROLINA PLEITEZ Rn-Customer Success Representative - 10/07/2020 10:58 EDT Narrative Progress Note Narrative Progress Note : Received call from [facility] [phone] advising CM their facility is unable to meet pt's needs - r/t C-Diff; weight - non-ambulatory w/ bed activity; pt on transfer to [facility] - notified CM. Historical Progress Note : HD#6; ELOS 3; MRR; BOOST 7 - GenEdema/Anasarca; received voice mail from [facility] - DON requesting additional clinical information - faxed this am; awaiting return call to confirm precert has been initiated. KAROLINA PLEITEZ, Rn-Customer Success Representative - 10/07/20 07:45:25 Dr. Pemberton tells CM pt is ready to transition and is appropriate for precert to be initiated with short-term rehab; spoke with pt and she is in agreement to go to [facility]. Contacted [facility] and she will initiate the precert and confirm with Dr. Whittaker. KAROLINA PLEITEZ Rn-Customer Success Representative - 10/06/20 13:57:22 HD#5; ELOS 3; MRR; BOOST 7 - Generalized Edema/Anasarca = 02/2L; Vancomycin/Midodrine; declined to stand w/therapy - will need rehab r/t ongoing weakness; discussion w/pt's family about need for rehab - possible long-term placement if unable to progress; [facility] interested to discuss with MD; [facility] unable to meet pt's needs; continue to follow. KAROLINA PLEITEZ Rn-Customer Success Representative - 10/06/20 08:58:40 Received call from pt's daughter Leslie Og and she requested referrals be sent to [facility] in [place], [place] ([employer]) and [facility] in [place], [place] ([employer]). KAROLINA PLEITEZ Rn-Customer Success Representative - 10/05/20 15:28:00 HD#4; ELOS 3; MRR; BOOST 7 - GenEdema/Hypernatremia/Anasarca - 02=2L; B/P 105/58; PO Vancomycin; Midodrine 10 mg TID; lytes to be replaced; Nephrology has signed off; pt MaxAx2 w/therapy; [facility] to [facility] and left another message for f/u to confirm pt may return and anticipated turn around time for precert; DCP return for rehab; will likely require ambulance for transport; pt on transfer out of [facility]. KAROLINA PLEITEZ Rn-Customer Success Representative - 10/05/20 13:37:58 HD#4; ELOS 3; MRR; BOOST 7 - GenEdema/Hypernatremia/Anasarca - 02=2L; B/P 105/58; PO Vancomycin; Midodrine 10 mg TID; lytes to be replaced; Nephrology has signed off; pt MaxAx2 w/therapy; updates sent thru [facility] to [facility] and left another message for f/u to confirm pt may return and anticipated turn around time for precert; DCP return for rehab; will likely require ambulance for transport; pt on transfer out of [facility]. [facility] and advised they will be unable to meet patient's needs; referral cancelled. sophia Spoke with pt's son Kishore and advised pt may require long-term care placement; he will discuss options with his sister and advise ; initial referrals sent thru [facility] to [facility]. KAROLINA PLEITEZ, Rn-Customer Success Representative - 10/05/20 13:54:46 HD#1; ELOS 3; MRR; BOOST 7 - GenEdema/Hypernatremia/Anasarca - improving - 02=2L; Levo gtt; Midodrine; IV Bumex; Nephrology - 24 hr urine to eval for nephrotic syndrome; +CDiff; Rocephin/Doxy/Vanc; ltd work w/therapy - refusing OOB and knee/hip AROM; pt needs to be encouraged; DCP rehab - left message for [facility] [phone] to confirm receipt of referral; pt will need precert. KAROLINA PLEITEZ, Rn-Customer Success Representative - 10/02/20 12:06:37 HD#1; ELOS 3; MRR; BOOST 7 - [facility]; Nephrology consult; [id number]; RA; Doxycycline/Rocephin; met w/pt's adult children Leslie Ashbytyler and Kishore Bosch ([phone]) who states DCP will be return to [facility] for ongoing rehab; explained pt will require a precert; updates clinicals sent to [facility] and [facility] left for intake [phone]; [phone]. KAROLINA PLEITEZ Rn-Customer Success Representative - 10/01/20 14:32:34 KAROLINA PLEITEZ Rn-Customer Success Representative - 10/07/2020 10:58 EDT documented in this encounter Plan of Treatment Not on file documented as of this encounter Visit Diagnoses Not on filedocumented in this encounter
--- OUTSIDE RECORDS SUMMARY | 2024-10-17 13:13 | XMS_ITS | Encounter Summary ---
Author Organization [employer] ([place], [place], [place], [place]) Address [address] [place] [address] Care Team Providers Care Shop Tech Name Role Phone Unavailable Primary Care Provider Unavailabl e Encounter Details Date Type Department Care Team (Late st Contact Info) Description 09/29/2020 Transcribed Document [facility] Family Medicine [address] [place] [address] ProviderRadha MD [address] [place] [address] Social History Tobacco Use Types Packs/Day Years Used Date Smoking Tobacco: Never Assessed Comments Unknown Sex and Gender Information Value Date Recorded Sex Assigned at Not on file Legal Sex Female 7:21 PM CDT Gender Identity Not on file Sexual Orientation Not on file documented as of this encounter Miscellaneous Notes * Cerner Conversion Note - Historical ProviderMD - 09/29/2020 11:53 PM CDT Evaluation, Physical Therapy Entered On: 09/30/2020 15:50 EDT Performed On: 09/30/2020 15:08 EDT by MELO MOLINA, PT General Information, PT Visit Type, PT : Treatment Note Patient Orders : Order Date Order Ordering 09/29/2020 23:53 PT Evaluation and Treatment Ordered By: JADE CURIEL DO Active Diagnoses : No Qualifying Diagnoses Therapy Diagnosis, PT : impaired mobiltiy due to generalized weakness, pain and BLE edema Onset of Problem, PT : 09/30/2020 EDT Admission Date : 09/30/2020 13:11 Co-treated by, PT : Occupational Therapist Assisted by, PT : Nursing Personal Devices : Personal Devices No Devices Recorded Assistive Devices : Assistive Devices No Devices Recorded General Information Comment, PT : Pt admitted with hyponatremia, fluid overload with anasarca, acute cystitis PMH: T2DM, HTN, HLD MELO MOLINA, PT - 09/30/2020 15:14 EDT General Status Patient Received Status : Supine in bed Treatment Start Time : 09/30/2020 14:44 EDT Patient Left Status : Supine in bed, RN/PCT informed, Communication board completed, All needs met and within reach RN/PCT Informed Comment : Kalie More advised session ok to atttempt Treatment End Time : 09/30/2020 15:08 EDT Treatment Time : 24 Minute(s) MELO MOLINA, PT - 09/30/2020 15:14 EDT History and Environment Living Situation, Therapy : Home Patient Lives With : Alone, Other: but reports 13 y/o granddaughter stays with her Persons Assisting Patient at Home : Alone Professional Skilled Services : None Persons Providing Information : Patient Home Equipment Therapy, PT : Other: w/c but reports she does not fit in it right now, BSC, shower chair Stairs : Yes Stair Location(s) : Outside Outside Stairs, Number of Steps : 1 Outside Stairs Comment : reports this is an approx. 2'' step only MELO MOLINA, PT - 09/30/2020 15:14 EDT Prior Level of Function PT GRID Prior LOF Ambulation, Household : Independent (Comment: with rollator [MELO MOLINA, PT - 09/30/2020 15:14 EDT] ) Prior LOF Ambulation, Community : Independent (Comment: with rollator [MELO MOLINA, PT - 09/30/2020 15:14 EDT] ) Prior LOF Bed Mobility : Independent Prior LOF Toileting : Independent Prior LOF Transfer : Independent MELO MOLINA, PT - 09/30/2020 15:14 EDT Prior LOF Assist with ADL Comment : indep. ADLs, daughter does shopping for her; pt has been in hospital / short-term rehab ~3 weeks, reports she was amb with her rollator down the no in rehab until maybe 1 week ago MELO MOLINA, PT - 09/30/2020 15:14 EDT Upper Extremity Right UE Active ROM : WFL Right UE Strength : WFL Left UE Active ROM : WFL Left UE Strength : WFL MELO MOLINA, PT - 09/30/2020 15:14 EDT Lower Extremity RLE Active ROM : Impaired Right LE Active Assist ROM : Impaired RLE Passive ROM : Impaired Right LE Strength : Impaired LLE Active ROM : Impaired Left LE Active Assist ROM : Impaired LLE Passive ROM : Impaired Left LE Strength : Impaired MELO MOLINA, PT - 09/30/2020 15:14 EDT Right Lower Extremity MMT Hip Flexion (0-125) : 2-/poor Hip Abduction (0-45) : 2-/poor Hip Adduction (0-20) : 2-/poor Knee Flexion (0-140) : 2-/poor Knee Extension (0-0) : 2-/poor Ankle Dorsiflexion (0-20) : 3-/fair Ankle Plantarflexion (0-45) : 3-/fair MELO MOLINA, PT - 09/30/2020 15:14 EDT Left Lower Extremity MMT Hip Flexion (0-125) : 2-/poor Hip Extension (0-10) : 2-/poor Hip Abduction (0-45) : 2-/poor Hip Adduction (0-20) : 2-/poor Knee Flexion (0-140) : 2-/poor Knee Extension (0-0) : 2-/poor Ankle Dorsiflexion (0-20) : 3-/fair Ankle Plantarflexion (0-45) : 3-/fair MELO MOLINA, PT - 09/30/2020 15:14 EDT Lower Extremity Comment : LE ROM very limited by edema and pain, pt with poor tolerance to AAROM or PROM, reports legs are painful even to light touch MELO MOLINA, PT - 09/30/2020 15:14 EDT Functional Mobility Mobility Grid Bed Roll Left : Rehab Maximal assistance (Comment: x2 [MELO MOLINA, PT - 09/30/2020 15:14 EDT] ) Bed Roll Right : Rehab Maximal assistance (Comment: x2 [MELO MOLINA, PT - 09/30/2020 15:14 EDT] ) Bed Scooting : Rehab Total assistance (Comment: x2 bed in trendelenberg [MELO MOLINA, PT - 09/30/2020 15:14 EDT] ) MELO MOLINA, PT - 09/30/2020 15:14 EDT Gait Training/Assessment, PT Gait Assistance Level : Unable to assess/activity not appropriate MELO MOLINA, PT - 09/30/2020 15:14 EDT Cognition Assessment, PT Orientation : Oriented x 4 Safety/Judgment Comment : intact Follows Basic Command Assessment : intact Attention Assessment : Present MELO MOLINA, PT - 09/30/2020 15:14 EDT Edu Topics Physical Therapy Education Grid Bed Mobility Training : Returns demonstration, Needs further teaching Role of Physical Therapy : Verbalizes understanding MELO MOLINA, PT - 09/30/2020 15:14 EDT Indication Assesessment, PT Physical Therapy Indicated : Yes PT Problem List : Impaired, activities daily living, Impaired, bed mobility, Impaired, endurance tolerance, Impaired, gait, Impaired, sitting balance, Impaired, stair mobility, Impaired, standing balance, Impaired, strength, Impaired, transfers, Pain limiting function Potential Barriers To Therapy : Pain, Other: LE edema Rehabilitation Potential : Fair MELO MOLINA, PT - 09/30/2020 15:14 EDT Plan of Care, PT PT Tx Plan/Goals Established w Patient : Yes PT Frequency Rehab : Five days per week PT Duration Rehab : Fourteen days PT Treatments Planned : Balance training, Bed mobility training, Gait training, Pain management, Safety education, Stair training, Therapeutic exercises, Transfer training MELO MOLINA, PT - 09/30/2020 15:14 EDT Short Term Goals Mobility/Bed Mobility STG PT Grid Goal #1 Goal #2 Activity : Supine to sit Assist : Assist, maximal Date to Meet : 10/07/2020 EDT Goal Status : Initial goal Comment : SEE GOALS BELOW MELO MOLINA, PT - 09/30/2020 15:14 EDT MELO MOLINA, PT - 09/30/2020 15:14 EDT Other PT STG Grid Goal #1 Goal #2 Goal : Pt will maintain static sit EOB up to 5 min with supervision Pt will tolerate AROM exercises with BLE's x 10 reps each Date to Meet : 10/07/2020 EDT 10/07/2020 EDT Goal Status : Initial goal Initial goal MELO MOLINA, PT - 09/30/2020 15:14 EDT MELO MOLINA, PT - 09/30/2020 15:14 EDT Assembler Knife Goals Mobility/Bed Mobility LTG PT Grid Goal #1 Goal #2 Activity : Supine to sit Sit to stand Assist : Assist, moderate Assist, moderate Equipment : Other: adenike RWx Date to Meet : 10/14/2020 EDT 10/14/2020 EDT Goal Status : Intial Goal Intial Goal MELO MOLINA, PT - 09/30/2020 15:14 EDT MELO MOLINA, PT - 09/30/2020 15:14 EDT Transfer LTG Grid Goal #1 Destination : Chair, with arms Type : Stand Pivot Sit Assist : Assist, moderate Date to Meet : 10/14/2020 EDT Goal Status : Intial Goal MELO MOLINA, PT - 09/30/2020 15:14 EDT Ambulation LTG Grid Goal #1 Device : Other: adenike RWx Distance : 20 ft Assist : Assist, moderate Date to Meet : 10/14/2020 EDT Goal Status : Intial Goal MELO MOLINA, PT - 09/30/2020 15:14 EDT Treatment Note Subjective Comment : Pt agreeable to session with encouragement. States I can't move my legs. When asked if it was due to weakness or just the edema she says due to the swelling. Pt reports her goal is to go home...to get up and use my walker. Additional Objective Information : pt with neff catheter, but noted to have urine saturated chux under her that she reports she was not aware of. Total A for hygiene as MEDICAL CARE MANAGER assisted with pt rolling to each side and new chux placed. Pt c/o pain even with light touch of washcloth on back of legs. Assessment : Pt with very limited AROM of BLEs due to pain and edema and very sensitive to touch of BLE's. Pt reports she cannot tolerate sitting up right now and reports she got very SOA when sitting up yesterday. Pt max A x 2 to roll to each side and total A to scoot up in bed. Pt limited with mobility at this time, but can benefit from continued PTx during LOS. Plan for Treatment : progress as tolerated. MELO MOLINA, PT - 09/30/2020 15:14 EDT Pain Assessment Pain Comment : pt c/o pain in bilateral knees at rest, then c/o pain throughout BLEs and said my skin hurts , did not rate, but very sensitive to any touch MELO MOLINA, PT - 09/30/2020 15:14 EDT Image 1 - Images currently included in the form version of this document have not been included in the text rendition version of the form. Anticipated Discharge Needs, OT/PT Anticipated Discharge to : Unit, rehabilitation Recommend Continued Therapy at Discharge : Yes MELO MOLINA, PT - 09/30/2020 15:14 EDT [facility] PT Charges PT Eval Moderate Complexity : 1 MELO MOLINA, PT - 09/30/2020 15:14 EDT Electronically signed by Galen Miller Conversion Electric Refrigerator Preparer Sandra at 08/02/2022 6:27 PM CDT documented in this encounter Plan of Treatment Not on file documented as of this encounter Visit Diagnoses Not on filedocumented in this encounter
--- OUTSIDE RECORDS SUMMARY | 2024-10-17 13:13 | XMS_ITS | Encounter Summary ---
Author Organization [employer] ([place], [place], [place], [place]) Address [address] [place] [address] Care Team Providers Care Welfare Eligibility Interviewer Name Role Phone Unavailable Primary Care Provider Unavailabl e Encounter Details Date Type Department Care Team (Late st Contact Info) Description 09/29/2020 Transcribed Document [facility] Family Medicine [address] [place] [address] ProviderRadha MD [address] [place] [address] Social History Tobacco Use Types [...] Historical ProviderMD - 09/29/2020 11:53 PM CDT Consult Phone Call Documentation Entered On: 09/30/2020 8:42 EDT Performed On: 09/29/2020 23:53 EDT by Alondra Levy Phone Call for Consults Consult Phone Call/Page Attempt : First call Consult Reason : Hyponatremia fluid overload Physician Requesting Consult : JADE CURIEL DO Physician Requested for Consult : KRISTA WHITLOCK MD-NEP Consult, Additional Information : Spoke with Dr. Spring on 09/30/2020 @0839. Patient added to Dr. Spring list. Alondra Levy - 09/30/2020 8:41 EDT documented in this encounter Plan of Treatment Not on file documented as of this encounter Visit Diagnoses Not on filedocumented in this encounter
--- OUTSIDE RECORDS SUMMARY | 2024-10-17 13:13 | XMS_ITS | Encounter Summary ---
Author Organization [employer] ([place], [place], [place], [place]) Address [address] [place] [address] Care Team Providers Care Fish Seiner Name Role Phone Unavailable Primary Care Provider Unavailabl e Encounter Details Date Type Department Care Team (Late st Contact Info) Description 09/30/2020 Transcribed Document [facility] Family Medicine [address] [place] [address] ProviderRadha MD [address] [place] [address] Social History Tobacco Use Types Packs/Day Years Used Date Smoking Tobacco: Never Assessed Comments Unknown Sex and Gender Information Value Date Recorded Sex Assigned at Not on file Legal Sex Female 7:21 PM CDT Gender Identity Not on file Sexual Orientation Not on file documented as of this encounter Miscellaneous Notes * Cerner Conversion Note - Radha ProviderMD - 09/30/2020 3:40 PM CDT Treatment Intervention, OT Entered On: 10/12/2020 15:05 EDT Performed On: 10/12/2020 15:00 EDT by HEIDI PORRAS OTR/Susanna General Information, OT Visit Type, OT : Treatment Note Patient Orders : Order Date Order Ordering 09/29/2020 23:53 OT Evaluation and Treatment Ordered By: JADE CURIEL DO 09/30/2020 15:40 OT Additional Tx Ordered By: Active Diagnoses : No Qualifying Diagnoses Therapy Diagnosis, OT : Decrease in I in ADL's and fxl mobiilty due to weakness and medical condition Admission Date : 09/30/2020 13:11 Co-treated by, OT : Physical Therapist Personal Devices : Personal Devices No Devices Recorded Assistive Devices : Assistive Devices No Devices Recorded Precautions in Place : Fall prevention measures HEIDI PORRAS OTR/L - 10/12/2020 15:02 EDT General Status Patient Received Status : Supine in bed Treatment Start Time : 10/12/2020 14:50 EDT Patient Left Status : Supine in bed, RN/PCT informed, All needs met and within reach RN/PCT Informed Comment : SUSANA rodriguez Treatment End Time : 10/12/2020 15:00 EDT Treatment Time : 10 Minute(s) HEIDI PORRAS OTR/Susanna - 10/12/2020 15:02 EDT Functional Mobility Mobility Grid Bed Roll Left : Rehab Minimal assistance Bed Roll Right : Rehab Minimal assistance Bed Scooting : Rehab Minimal assistance Supine to Sit : Rehab Minimal assistance Sit to Stand : Rehab Minimal assistance Bed to Chair : Rehab Minimal assistance Chair to Bed : Rehab Minimal assistance Stand to Sit : Rehab Minimal assistance Sit to Supine : Rehab Minimal assistance HEIDI PORRAS OTR/Susanna - 10/12/2020 15:02 EDT Plan of Care, OT OT Tx Plan/Goals Established w Patient : Yes HEIDI PORRAS OTR/Susanna - 10/12/2020 15:06 EDT Snf Goals, OT Grooming LTG Grid Goal #1 Activity : Grooming Assist : Supervision or set up Date to Meet : 10/14/2020 EDT Goal Status : Progressing, continue Comment : Seated EOB HEIDI PORRAS OTR/Susanna - 10/12/2020 15:06 EDT Toilet Transfer LTG Grid Goal #1 Activity : Toilet Transfer, Stand Pivot Sit Assist : Assist, moderate Date to Meet : 10/14/2020 EDT Goal Status : Initial goal HEIDI PORRAS OTR/Susanna - 10/12/2020 15:06 EDT Bed Mobility/ Bed Transfer LTG Grid Goal #1 Activity : Bed Mobility, Supine to Sit Assist : Assist, moderate Date to Meet : 10/14/2020 EDT Goal Status : Progressing, continue HEIDI PORRAS OTR/Susanna - 10/12/2020 15:06 EDT Treatment Note Subjective Comment : agreeable Patient's Response to Treatment : pt tolerated well Additional Objective Information : pt given red theraband on rails and educated on B UE HEP for strengthening. Pt demonstrated exercise correctly. Completed x10 Assessment : pt has fair UB strength Plan for Treatment : cont HEIDI PORRAS OTR/Susanna - 10/12/2020 15:06 EDT Pain Assessment Pain Scaled Used : 0-10 Pain scale Pain Score During-Intervention : 0 HEIDI PORRAS OTR/L - 10/12/2020 15:06 EDT Image 1 - Images currently included in the form version of this document have not been included in the text rendition version of the form. Anticipated Discharge Needs, OT/PT Anticipated Discharge to : Unit, [facility] HEIDI PORRAS OTR/L - 10/12/2020 15:[address] [facility] OT Charges OT Ther Activities Ea 15 Min : 1 HEIDI PORRAS OTR/L - 10/12/2020 15:06 EDT Electronically signed by [facility] Conversion Auto Bumper Straightener Cerner at 08/05/2022 9:05 AM CDT documented in this encounter Plan of Treatment Not on file documented as of this encounter Visit Diagnoses Not on filedocumented in this encounter
--- OUTSIDE RECORDS SUMMARY | 2024-10-17 13:13 | XMS_ITS | Encounter Summary ---
Author Organization [employer] ([place], [place], [place], [place]) Address [address] [place] [address] Care Team Providers Care Freight Car Builder Name Role Phone Unavailable Primary Care Provider Unavailabl e Encounter Details Date Type Department Care Team (Late st Contact Info) Description 10/05/2020 Transcribed Document [facility] [place] [address] [place] [address] ProviderRadha MD [address] [place] [address] Social History Tobacco Use Types Packs/Day Years Used Date Smoking Tobacco: Never Assessed Comments Unknown Sex and Gender Information Value Date Recorded Sex Assigned at Not on file Legal Sex Female 7:21 PM CDT Gender Identity Not on file Sexual Orientation Not on file documented as of this encounter Miscellaneous Notes * Cerner Conversion Note - Radha ProviderMD - 10/05/2020 3:00 AM CDT Nutrition Assessment Entered On: 10/05/2020 11:09 EDT Performed On: 10/05/2020 11:07 EDT by Mariam Cohen Dietitiever Nutrition Assessment Nutrition Assessment Reason : Follow Up Current Nutrition Regimen Comment : 10/05: Moderate f/up. Spoke w/ pt today; reports okay appetite. Pt is eating well and drinking pro2go BID. Will continue to monitor. 09/30: Rec'd consult for BMI>40 (BMI=63.4) + consult for malnutrition. Spoke w/ pt today; reports okay appetite and eating ~50% of her meals. 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 x [...] albumin, Lipitor, abx, lovenox, lantus, lispro, synthroid, PPI, KCl, pain prn Labs; BUN 38, Cr 0.4, Alb 1.6, FSBG 84/122/103 Skin: 3+ edema/anasarca; no skin breakdown GI: LBM 10/05 (+cdiff), +BS Diet: 60 gm CHO/Low Na, 1 L FR + pro2go BID Intakes: 75-100% x 5 Ht; 62 Wt: 346#/157.3 kg (09/30), no new wt (10/05) Wt hx per pt: 314# (Apr 2020), 230# (July 2020) BMI: 63.4 IBW: 110# Mariam Cohen Dietitian - 10/05/2020 11:07 EDT Nutrition Diagnoses Oral or Nutrition Support Intake : Inadequate oral intake Oral or Nutr Support Intake Related To : decreased appetite Oral or Nutr Support Intake Evidenced by : 75-100% of meals Oral or Nutrition Support Intake Status : Resolved Weight : Obese, Class III Weight Related to : lifestyle Weight As Evidenced by : BMI=63.4 Weight Status : Active Mariam Choen Dietitian - 10/05/2020 11:07 EDT Nutrition Interventions Meals and Snacks : Carbohydrate-modified diet, Sodium modified diet Nutrition Supplement Therapy : Commercial beverage Mariam Cohen Dietitian - 10/05/2020 11:07 EDT Monitoring/Evaluation Energy Intake : Total energy intake Food Intake : Amount of food Protein Intake : Total protein Weight Status : Weight Maintanence Gastrointestinal Function : Bowel Function Mariam Cohen Dietitian - 10/05/2020 11:07 EDT Nutrition Recommendations Dietitian Recommendations : 1. Continue 60 gm CHO diet/Low Na diet w/ 1000 ml FR + pro2go BID. Goal: >75% PO diet 2. Monitor BG levels and adjust insulin prn. Goal: 70-180 3. Monitor wt 2x/wk. Pt +fluid. Goal: no unintended wt changes moderate risk Nutrition Care Level : Moderate Mariam Cohen Dietitian - 10/05/2020 11:07 EDT documented in this encounter Plan of Treatment Not on file documented as of this encounter Visit Diagnoses Not on filedocumented in this encounter
--- OUTSIDE RECORDS SUMMARY | 2024-10-17 13:13 | XMS_ITS | Encounter Summary ---
Author Organization [employer] ([place], [place], [place], [place]) Address [address] [place] [address] Care Team Providers Care Production Machine Shop Supervisor Name Role Phone Unavailable Primary Care Provider Unavailabl e Encounter Details Date Type Department Care Team (Late st Contact Info) Description 10/07/2020 Transcribed Document [facility] [place] [address] [place] [address] ProviderRadha MD [address] [place] [address] Social History Tobacco Use Types Packs/Day Years Used Date Smoking Tobacco: Never Assessed Comments Unknown Sex and Gender Information Value Date Recorded Sex Assigned at Not on file Legal Sex Female 7:21 PM CDT Gender Identity Not on file Sexual Orientation Not on file documented as of this encounter Miscellaneous Notes * Cerner Conversion Note - Radha ProviderMD - 10/07/2020 7:43 AM CDT On Going Discharge Planning Entered On: 10/07/2020 7:45 EDT Performed On: 10/07/2020 7:43 EDT by KAROLINA PLEITEZ Rn-Olive PickerDatabase Support Progress Note Discharge Arrangements : Patient Post-Acute Information Patient Name: LUH BOSCH Gender: Female : 62 Age: 59 Years Ruth Referral(s): Service: Organization: Business Address: Phone Number: [facility] [address] [place], [address] Discharge Options Discussed with Patient : Acute rehabilitation, Discharge transportation, DME, Home Health, Short term rehabilitation Barriers to Discharge Identified : Clinical Condition of Patient, Follow-Up appointments needed Barriers to Discharge Unresolved : Clinical Condition of Patient KAROLINA PLEITEZ Rn-Olive Picker - 10/07/2020 7:43 EDT Narrative Progress Note Narrative Progress Note : HD#6; ELOS 3; MRR; BOOST 7 - GenEdema/Anasarca; received voice mail from [facility] - DON requesting additional clinical information - faxed this am; awaiting return call to confirm precert has been initiated. Historical Progress Note : Dr. Pemberton tells CM pt is ready to transition and is appropriate for precert to be initiated with short-term rehab; spoke with pt and she is in agreement to go to [facility]. Contacted [facility] and she will initiate the precert and confirm with Dr. Whittaker. KAROLINA PLEITEZ, Rn-Olive Picker - 10/06/20 13:57:22 HD#5; ELOS 3; MRR; BOOST 7 - Generalized Edema/Anasarca = 02/2L; Vancomycin/Midodrine; declined to stand w/therapy - will need rehab r/t ongoing weakness; discussion w/pt's family about need for rehab - possible long-term placement if unable to progress; [facility] interested to discuss with MD; [facility] unable to meet pt's needs; continue to follow. KAROLINA PLEITEZ, Rn-Olive Picker - 10/06/20 08:58:40 Received call from pt's daughter Leslie Og and she requested referrals be sent to [facility] in [place], [place] ([facility]) and [facility] in [place], [place] ([facility]). KAROLINA PLEITEZ Rn-Olive Picker - 10/05/20 15:28:00 HD#4; ELOS 3; MRR; BOOST 7 - GenEdema/Hypernatremia/Anasarca - 02=2L; B/P 105/58; PO Vancomycin; Midodrine 10 mg TID; lytes to be replaced; Nephrology has signed off; pt MaxAx2 w/therapy; updates sent thru [facility] to [facility] and left another message for f/u to confirm pt may return and anticipated turn around time for precert; DCP return for rehab; will likely require ambulance for transport; pt on transfer out of [facility]. KAROLINA PLEITEZ Rn-Olive Picker - 10/05/20 13:37:58 HD#4; ELOS 3; MRR; BOOST 7 - GenEdema/Hypernatremia/Anasarca - 02=2L; B/P 105/58; PO Vancomycin; Midodrine 10 mg TID; lytes to be replaced; Nephrology has signed off; pt MaxAx2 w/therapy; updates sent thru [facility] to [facility] and left another message for f/u to confirm pt may return and anticipated turn around time for precert; DCP return for rehab; will likely require ambulance for transport; pt on transfer out of [facility]. Spoke with anatoly/[facility] and advised they will be unable to meet patient's needs; referral cancelled. sophia Spoke with pt's son Kishore and advised pt may require long-term care placement; he will discuss options with his sister and advise CM; initial referrals sent thru [facility] to [place]. KAROLINA PLEITEZ Rn-Olive Picker - 10/05/20 13:54:46 HD#1; ELOS 3; MRR; BOOST 7 - GenEdema/Hypernatremia/Anasarca - improving - 02=2L; Levo gtt; Midodrine; IV Bumex; Nephrology - 24 hr urine to eval for nephrotic syndrome; +CDiff; Rocephin/Doxy/Vanc; ltd work w/therapy - refusing OOB and knee/hip AROM; pt needs to be encouraged; DCP rehab - left message for [facility] [phone] to confirm receipt of referral; pt will need precert. KAROLINA PLEITEZ Rn-Olive Picker - 10/02/20 12:06:37 HD#1; ELOS 3; MRR; BOOST 7 - Transfer from [facility] for Generalized Edema; Nephrology consult; ER=921; RA; Doxycycline/Rocephin; met w/pt's adult children Leslie Og and Kishore Hiro ([phone]) who states DCP will be return to [facility] for ongoing rehab; explained pt will require a precert; updates clinicals sent to [facility] and voicemail left for intake [phone]; [phone]. KAROLINA PLEITEZ Rn-Olive Picker - 10/01/20 14:32:34 KAROLINA PLEITEZ Rn-Olive Picker - 10/07/2020 7:43 EDT documented in this encounter Plan of Treatment Not on file documented as of this encounter Visit Diagnoses Not on filedocumented in this encounter
--- OUTSIDE RECORDS SUMMARY | 2024-10-17 13:13 | XMS_ITS | Encounter Summary ---
Author Organization [employer] ([place], [place], [place], [place]) Address [address] [place] [address] Care Team Providers Care Consulting Analyst Name Role Phone Unavailable Primary Care Provider Unavailabl e Encounter Details Date Type Department Care Team (Late st Contact Info) Description 10/05/2020 Transcribed Document [facility] [place] [address] [place] [address] ProviderRadha MD [address] [place] [address] Social History Tobacco Use Types Packs/Day Years Used Date Smoking Tobacco: Never Assessed Comments Unknown Sex and Gender Information Value Date Recorded Sex Assigned at Not on file Legal Sex Female 7:21 PM CDT Gender Identity Not on file Sexual Orientation Not on file documented as of this encounter Miscellaneous Notes * Cerner Conversion Note - Radha ProviderMD - 10/05/2020 5:00 PM CDT Chart Check - Review Order Profile Entered On: 10/05/2020 18:14 EDT Performed On: 10/05/2020 17:00 EDT by Lisa Cordova RN-PATIENT CARE BEDSIDE NON-EXEMPT Chart Check Powerplans Initiated/Discontinued as Appropriate : Yes All Active Orders Reviewed : Yes Lisa Cordova RN-PATIENT CARE BEDSIDE NON-EXEMPT - 10/05/2020 18:14 EDT documented in this encounter Plan of Treatment Not on file documented as of this encounter Visit Diagnoses Not on filedocumented in this encounter
--- OUTSIDE RECORDS SUMMARY | 2024-10-17 13:13 | XMS_ITS | Encounter Summary ---
Author Organization [employer] ([place], [place], [place], [place]) Address [address] [place] [address] Care Team Providers Care General Handling Supervisor Name Role Phone Unavailable Primary Care Provider Unavailabl e Encounter Details Date Type Department Care Team (Late st Contact Info) Description 10/05/2020 Transcribed Document [facility] [place] [address] [place] [address] ProviderRadha MD [address] [place] [address] Social History Tobacco Use Types Packs/Day Years Used Date Smoking Tobacco: Never Assessed Comments Unknown Sex and Gender Information Value Date Recorded Sex Assigned at Not on file Legal Sex Female 7:21 PM CDT Gender Identity Not on file Sexual Orientation Not on file documented as of this encounter Miscellaneous Notes * Cerner Conversion Note - Radha ProviderMD - 10/05/2020 3:27 PM CDT On Going Discharge Planning Entered On: 10/05/2020 15:28 EDT Performed On: 10/05/2020 15:27 EDT by KAROLINA PLEITEZ Rn-Teleprinter InstallerEquipment Oiler Progress Note Discharge Arrangements : Patient Post-Acute [...] : Clinical Condition of Patient KAROLINA PLEITEZ Rn-Teleprinter Installer - 10/05/2020 15:27 EDT Narrative Progress Note Narrative Progress Note : Received call from pt's daughter Leslie Buntain and she requested referrals be sent to [facility] in [place], [place] ([facility]) and [facility] in [place], [place] ([facility]). Historical Progress Note : HD#4; ELOS 3; MRR; BOOST 7 - GenEdema/Hypernatremia/Anasarca - 02=2L; B/P 105/58; PO Vancomycin; Midodrine 10 mg TID; lytes to be replaced; Nephrology has signed off; pt MaxAx2 w/therapy; updates sent thru [facility] to [facility] and left another message for f/u to confirm pt may return and anticipated turn around time for precert; DCP return for rehab; will likely require ambulance for transport; pt on transfer out of [facility]. KAROLINA PLEITEZ Rn-Teleprinter Installer - 10/05/20 13:37:58 HD#4; ELOS 3; MRR; BOOST 7 - GenEdema/Hypernatremia/Anasarca - 02=2L; B/P 105/58; PO Vancomycin; Midodrine 10 mg TID; lytes to be replaced; Nephrology has signed off; pt MaxAx2 w/therapy; updates sent thru [facility] to [facility] and left another message for f/u to confirm pt may return and anticipated turn around time for precert; DCP return for rehab; will likely require ambulance for transport; pt on transfer out of [facility]. Spoke with [facility] and advised they will be unable to meet patient's needs; referral cancelled. l Spoke with pt's son Kishore and advised pt may require long-term care placement; he will discuss options with his sister and advise CM; initial referrals sent thru [facility] to [facility]. KAROLINA PLEITEZ, Brenda-Teleprinter Installer - 10/05/20 13:54:46 HD#1; ELOS 3; MRR; BOOST 7 - GenEdema/Hypernatremia/Anasarca - improving - 02=2L; Levo gtt; Midodrine; IV Bumex; Nephrology - 24 hr urine to eval for nephrotic syndrome; +CDiff; Rocephin/Doxy/Vanc; ltd work w/therapy - refusing OOB and knee/hip AROM; pt needs to be encouraged; DCP rehab - left message for [facility] [phone] to confirm receipt of referral; pt will need precert. KAROLINA PLEITEZ, Rn-Teleprinter Installer - 10/02/20 12:06:37 HD#1; ELOS 3; MRR; BOOST 7 - Transfer from [facility] for Generalized Edema; Nephrology consult; VB=764; RA; Doxycycline/Rocephin; met w/pt's adult children Leslie Lenka and Kishore Bosch ([phone]) who states DCP will be return to [facility] for ongoing rehab; explained pt will require a precert; updates clinicals sent to [facility] and voicemail left for intake [phone]; [phone]. KAROLINA PLEITEZ, Rn-Teleprinter Installer - 10/01/20 14:32:34 KAROLINA PLIETEZ Rn-Teleprinter Installer - 10/05/2020 15:27 EDT Electronically signed by Galen Miller Conversion Automatic Embroidery Machine Tender Cerner at 08/02/2022 6:10 PM CDT documented in this encounter Plan of Treatment Not on file documented as of this encounter Visit Diagnoses Not on filedocumented in this encounter
--- OUTSIDE RECORDS SUMMARY | 2024-10-17 13:13 | XMS_ITS | Encounter Summary ---
Author Organization [employer] ([place], [place], [place], [place]) Address [address] [place] [address] Care Team Providers Care Face Burler Name Role Phone Unavailable Primary Care Provider Unavailabl e Encounter Details Date Type Department Care Team (Late st Contact Info) Description 10/05/2020 Transcribed Document [facility] [place] [address] [place] [address] ProviderRadha MD [address] [place] [address] Social History Tobacco Use Types Packs/Day Years Used Date Smoking Tobacco: Never Assessed Comments Unknown Sex and Gender Information Value Date Recorded Sex Assigned at Not on file Legal Sex Female 7:21 PM CDT Gender Identity Not on file Sexual Orientation Not on file documented as of this encounter Miscellaneous Notes * Cerner Conversion Note - Historical ProviderMD - 10/05/2020 5:00 AM CDT Chart Check - Review Order Profile Entered On: 10/05/2020 4:49 EDT Performed On: 10/05/2020 5:00 EDT by Desire Verduzco Chart Check Powerplans Initiated/Discontinued as Appropriate : Yes All Active Orders Reviewed : Yes Desire Verduzco - 10/05/2020 4:49 EDT Electronically signed by Angela [facility] Conversion Computer Numeric Control Setter Cerner at 08/02/2022 6:14 PM CDT documented in this encounter Plan of Treatment Not on file documented as of this encounter Visit Diagnoses Not on filedocumented in this encounter
--- OUTSIDE RECORDS SUMMARY | 2024-10-17 13:13 | XMS_ITS | Patient Health Record ---
Author Organization [facility] Address [address] [place] [address] [place] [address] Support Name Relationship Address Phone [place] [address] PEPE GLASS Guarantor Unknown [phone] Allergies Allergen (clinical drug ingredient) Drug/Non Drug Allergy documented on EMR Reaction Allergy Type Onset Date Status hydromorphone DULODID (uncoded) Unknown Allergy Active morphine Morphine Unknown Drug Allergy Active Penicillin Unknown Drug Allergy Active Reason For Referral No Information Medications Medication SIG (Take, Route, Frequency, Duration) Notes Start Date End Date Status Lactulose 10 GM 30 ml Orally Once a day 20gram/30ml 30ml 2xaday Active Sodium Chloride (PF) Active Fiber otc 0.52 gram Active Nystatin 306002 UNIT/GM 1 application Externally Twice a day Active Atorvastatin Calcium 40 MG 1 tablet Orally Once a day hs 19:00 - 23:00 Active Bumetanide 1 MG as directed Orally twice a day Active Acetaminophen 500 MG 1 tablet as needed Orally every 6 hrs Active Sodium Phosphate otc 19-7 gram 1 kit daily prn Active Clotrimazole-Betamethas one 1-0.05 % 1 application Externally Twice a day Active Ciclopirox 0.77 % 1 application Externally Twice a day Active Melatonin 3 MG 1 tablet at bedtime as needed Orally Once a day Active Anusol-HC 25 MG 1 suppository prn Rectal prn 1, prn 2 Active DermaPhor - as directed Externally Active Advair HFA 115-21 MCG/ACT 2 puffs Inhalation Twice a day Active Lactobacillus Probiotic - as directed Orally DAILY 1 tab oral Active HumaLOG KwikPen 100 UNIT/ML sliding scale Subcutaneous 100 units/ml sliding scale Active Tab-A-Aram 4100 MCG once a day Active Spironolactone 25 MG 1 tablet Orally Onc e a day Active Pepcid 20 MG 1 tablet Orally Once a day 20mg 1tab 1 Active Senna Plus 8.6-50 MG 1 tablet in the evening as needed Orally BID 8.6-50mg 1 oral 2xaday Active Roxicodone 5 MG 1 tablet as needed Orally every 6 hrs 5 mg 1tab q6h prn for pain Active Levothyroxine Sodium 88 MCG 1 tablet in the morning on an empty stomach Orally Once a day 88mcg 1 tab in am Active Lantus 100 UNIT/ML 10 UNITS Subcutaneous EVERY AM 10 units in the am Active MiraLax 17 GM/SCOOP 1 packet mixed with 8 ounces of fluid Orally BID 17 grams twice a day Active Midodrine HCl 10 MG 1 tablet Orally Three times a day 10mg 1 tab 3xaday when sbp is grater then 100 Active Simethicone 80 MG 1 tablet Orally Four times a day Active Social History Tobacco Use: Social History Observation Description Date Details (start date - stop date) Former Smoker NA - NA Tobacco Use/Smoking Question Answer Notes Are you a former smoker Problems Problem Type SNOMED Code ICD Code Onset Dates Problem Status W/U Status Risk Notes Problem Syndrome of inappropriate secretion of antidiuretic hormone (38295022) 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) Active confirmed Problem Hypotension due to drugs (995180919) Hypotension due to drugs (I95.2) Active confirmed Problem Gastro-esophageal reflux disease without esophagitis (562296438) Gastro-esophageal reflux disease without esophagitis (K21.9) Active confirmed Problem Cirrhosis of liver (29352670) Other cirrhosis of liver (K74.69) Active confirmed Problem Ascites (981437622) Other ascites (R18.8) Active confirmed Problem Hyponatremia (56556296) Hyponatremia (E87.1) Active confirmed Problem Hypothyroidism (48552456) Hypothyroidism (E03.9) Active confirmed Problem Mixed hyperlipidemia (926423882) Hyperlipemia, mixed (E78.2) Active confirmed Problem 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) Active confirmed Problem Peripheral edema (52937988) Peripheral edema (R60.9) Active confirmed Problem Diabetes mellitus type 2 (77441587) Diabetes mellitus type 2, uncontrolled (E11.65) Active confirmed Problem Edema (478556626) Edema leg (R60.0) Active conf irmed Problem Clostridial gastroenteritis (95774930) Enterocolitis due to Clostridium difficile, not specified as recurrent (A04.72) Active confirmed Plan Of Treatment Pending Test Test Name Order Date Uric Acid, Serum 11/30/2020 Cortisol 11/30/2020 Sodium, Urine 11/30/2020 Creatinine, Urine 11/30/2020 Microalb/Creat Ratio, Randm Ur Comp. Metabolic Panel (14) 11/30/2020 Insurance Providers Payer Name Payer Address Payer Phone Subscriber Number Group Number Insured Name Patient Relationship to Insured Coverage Start Date Coverage End Date [employer] MEDICARE [address] [address] [place] [phone] [id number] PEPE GLASS Self - patient is the insured Medicaid of [place] [address] [place] [address] [id number] PEPE GLASS Self - patient is the insured Medical (General) History Surgical History Surgery Date(Month/Year) GALLBLADDER 2004 HYSTERECTOMY 2001 HAND 1988 Hospitalization History Reason Date(Month/Year) [facility] 11/2020
--- OUTSIDE RECORDS SUMMARY | 2024-10-17 13:13 | XMS_ITS | Encounter Summary ---
Author Organization [employer] ([place], [place], [place], [place]) Address [address] [place] [address] Care Team Providers Care Cocktail Server Name Role Phone Unavailable Primary Care Provider Unavailabl e Encounter Details Date Type Department Care Team (Late st Contact Info) Description 10/08/2020 Transcribed Document [facility] [place] [address] [place] [address] ProviderRadha MD [address] [place] [address] Social History Tobacco Use Types Packs/Day Years Used Date Smoking Tobacco: Never Assessed Comments Unknown Sex and Gender Information Value Date Recorded Sex Assigned at Not on file Legal Sex Female 7:21 PM CDT Gender Identity Not on file Sexual Orientation Not on file documented as of this encounter Miscellaneous Notes * Cerner Conversion Note - Historical ProviderMD - 10/08/2020 5:00 AM CDT Chart Check - Review Order Profile Entered On: 10/08/2020 3:45 EDT Performed On: 10/08/2020 5:00 EDT by Yovana Whelan Non Emp RN Chart Check Powerplans Initiated/Discontinued as Appropriate : Yes All Active Orders Reviewed : Yes Yovana Whelan Non Emp RN - 10/08/2020 3:45 EDT documented in this encounter Plan of Treatment Not on file documented as of this encounter Visit Diagnoses Not on filedocumented in this encounter
--- OUTSIDE RECORDS SUMMARY | 2024-10-17 13:13 | XMS_ITS | Encounter Summary ---
Author Organization [employer] ([place], [place], [place], [place]) Address [address] [place] [address] Care Team Providers Care Crotch Piece Baster Name Role Phone Unavailable Primary Care Provider Unavailabl e Encounter Details Date Type Department Care Team (Late st Contact Info) Description 10/10/2020 Transcribed Document [facility] [place] Family Medicine [address] [place] [address] ProviderRadha MD [address] [place] [address] Social History Tobacco Use Types Packs/Day Years Used Date Smoking Tobacco: Never Assessed Comments Unknown Sex and Gender Information Value Date Recorded Sex Assigned at Not on file Legal Sex Female 7:21 PM CDT Gender Identity Not on file Sexual Orientation Not on file documented as of this encounter Miscellaneous Notes * Cerner Conversion Note - Radha Reed MD - 10/10/2020 11:08 AM CDT Patient: LUH BOSCH Age: 59 years Sex: Female : 1960 Associated Diagnoses: None Author: SAMANTHA GREER, Subjective pt seen by me this morning, she tells me that she is frustrated by dietary issues- she would like more liquid and milk with her cereal. she tells me that LE edema is improved. diarrhea has slowed- only two bm in last 24 hours. no abd pain. Health Status Current medications: Medications (33) Active Scheduled: (14) atorvastatin 40 mg tab 40 mg 1 Tab, Oral, Daily bumetanide 1 mg tab 1 mg 1 Tab, Oral, BID enoxaparin 40 mg/0.4 mL inj 40 mg 0.4 mL, SubCutaneous, [id number] famotidine 20 mg tab 20 mg 1 Tab, Oral, Daily insulin glargine 1 unit/0.01 mL inj 10 Units 0.1 mL, SubCutaneous, Daily insulin lispro 1 unit/0.01 mL inj Scale B:, SubCutaneous, AC and at Bedtime insulin lispro 1 unit/0.01 mL inj 4 Units 0.04 mL, SubCutaneous, TID With Meals lactobacillus acidophilus cap 1 Cap, Oral, Daily levothyroxine 75 mcg tab 75 mcg 1 Tab, Oral, Daily midodrine 5 mg tab 10 mg 2 Tab, Oral, TID With Meals mometasone/formoterol 200/5 mcg inh 1 Puff, Inhalation, BID montelukast 10 mg tab 10 mg 1 Tab, Oral, Daily ocular lubricant 1% soln 0.4 mL 1 Drop, Eyes Both, QID vancomycin 250 mg/5 mL oral liq 250 mg 5 mL, Oral, Q6H Continuous: (0) PRN: (19) acetaminophen 325 mg tab 650 mg 2 Tab, Oral, Q4H acetaminophen 325 mg tab 650 mg 2 Tab, Oral, Q4H albuterol-ipratropium inh 3 mL 3 mL, Nebulized Inhalation, RT_Q6H calcium carbonate 500 mg chew tab 500 mg 1 Tab, Oral, BID calcium gluconate 1 Gram 10 mL, IV Piggyback, Daily calcium gluconate + NaCl 0.9% 100 mL 2 Gram 20 mL, IV Piggyback, Daily calcium gluconate + NaCl 0.9% 100 mL 2 Gram 20 mL, IV Piggyback, Q12H magnesium sulfate 2 Gram 50 mL, IV Piggyback, Daily magnesium sulfate 2 Gram 50 mL, IV Piggyback, Q2H melatonin 3 mg tab 3 mg 1 Tab, Oral, At Bedtime ondansetron 4 mg/2 mL inj 4 mg 2 mL, IV Push, Q4H oxyCODONE 5 mg tab 5 mg 1 Tab, Oral, Q4H polyethylene glycol 3350 pwd 17 g pkt 17 Gram 1 Packet, Oral, Daily potassium chloride 10 mEq 50 mL, IV Piggyback, Q1H potassium chloride CR 20 mEq tab 20 mEq 1 Tab, Oral, Q2H potassium chloride CR 20 mEq tab 60 mEq 3 Tab, Oral, Q2H promethazine 25 mg/1 mL inj 6.25 mg 0.25 mL, IntraVENous, Q6H sodium phosphate 15 mMole 5 mL, IV Piggyback, Daily sodium phosphate 15 mMole 5 mL, IV Piggyback, Q6H Objective Intake and Output Intake & Output Totals Last 24 Hours (7a-7a) Intake (4 Events) Medications (20 mL) Output (1 Events) Urine Voided (Volume) (400 mL) Input Total: 20 mL Output Total: 400 mL Balance: -380 mL VS/Measurements Vitals Signs (last 24 hrs) Last Charted Minimum Maximum Temp 98 (OCT 10 06:11) 97.9 (OCT 09 16:12) 98.2 (OCT 09 21:06) Mon HR 80 (OCT 10 08:09) 80 (OCT 10 08:06) 92 (OCT 09 19:52) Resp Rate 18 (OCT 10 06:11) 17 (OCT 09 18:51) 20 (OCT 10 03:38) SBP 107 (OCT 10 06:11) 106 (OCT 09 21:06) 121 (OCT 09 16:12) DBP 65 (OCT 10 06:11) 62 (OCT 10 03:38) H 92 (OCT 09 16:12) MAP 90 (OCT 10 06:11) 75 (OCT 10 03:38) 102 (OCT 09 16:12) SpO2 97 (OCT 10 08:09) L 93 (OCT 09 19:52) 98 (OCT 09 18:51) General: Alert and oriented, No acute distress. Eye: Pupils are equal, round and reactive to light, Normal conjunctiva. HENT: Normocephalic, Normal hearing. Neck: Supple, No jugular venous distention. Respiratory: Lungs are clear to auscultation, Respirations are non-labored, Breath sounds are equal. Cardiovascular: Normal rate, Regular rhythm, No murmur, 2+ edema to mid thigh bilaterally . Gastrointestinal: Soft, Non-tender, Non-distended, Normal bowel sounds. Integumentary: Warm, Dry. Neurologic: Alert, Oriented, No focal deficits. Psychiatric: Cooperative, Appropriate mood & affect. Results Review General results Interpretation: No qualifying data available Labs (Last four charted values) WBC 7.7 (OCT 05) 8.8 (OCT 04) 9.4 (OCT 03) 10.4 (SEP 18) HB L 8.6 (OCT 05) L 8.8 (OCT 04) L 9.8 (OCT 03) L 9.5 (CLAUDIA 18) HCT L 27.2 [...] 2.0 (CLAUDIA 18) L 1.0 (CLAUDIA 16) No Radiology Results Found Impression and Plan distributive shock due to 3rd spacing and intravascular solute/oncotic pressure - echocardiogram with nml EF - on midodrine currently - initially required pressors but now weaned off - s/p IV albumin C diff colitis - continue po vancomycin - diarrhea improved hyponatremia - volume overload with anasarca - bumex started 10/08 - 1800 cc fluid restriction severe protein calorie malnutrition - pt admits to very restrictive calorie diet - supplements started possible acute cystitis - urine may be contaminated - off antibiotics with the c diff type 2 dm - a1c 6.2 - ssi HLD - statin hypothyroidism - continue levothyroxine GERD - PPI morbid obesity - complicates all aspects of care pt ready for dc, await rehab bed. her main complaint today is the food- increase fluid restriction to 1800 ml (up from 1L) time spent: 25 min discharge goals: await rehab anticipated discharge disposition: [facility] Samantha Melendez Hospitalist pager- [phone] documented in this encounter Plan of Treatment Not on file documented as of this encounter Visit Diagnoses Not on filedocumented in this encounter
--- OUTSIDE RECORDS SUMMARY | 2024-10-17 13:13 | XMS_ITS | Encounter Summary ---
Author Organization [employer] ([place], [place], [place], [place]) Address [address] [place] [address] Care Team Providers Care Fire Alarm Repairer Name Role Phone Unavailable Primary Care Provider Unavailabl e Encounter Details Date Type Department Care Team (Late st Contact Info) Description 09/30/2020 Transcribed Document [facility] [address] [place] [address] ProviderRadha MD [address] [place] [address] Social History Tobacco Use Types Packs/Day Years Used Date Smoking Tobacco: Never Assessed Comments Unknown Sex and Gender Information Value Date Recorded Sex Assigned at Not on file Legal Sex Female 7:21 PM CDT Gender Identity Not on file Sexual Orientation Not on file documented as of this encounter Miscellaneous Notes * Cerner Conversion Note - Radha Reed MD - 09/30/2020 12:37 PM CDT DATE OF CONSULTATION: 09/30/2020 NEPHROLOGY CONSULT NOTE CONSULTING PHYSICIAN: Dr. Vinicio Casiano. REASON FOR CONSULT: Hyponatremia. CHIEF COMPLAINT: Volume overload. HISTORY OF PRESENTING ILLNESS: This is a very pleasant 59-year-old female with a past medical history significant for diabetes type 2, hypertension, hyperlipidemia, GERD, and reported a 2-month history of gross volume overload, has been transferred to [facility] from [facility] with hyponatremia. The patient has been having difficulty with fluid accumulation, and she has been on Bumex for her volume status. She was found to have a sodium level of 122 and BUN of 60 at outside facility and transferred to our facility for further evaluation and treatment. Labs over here shows a sodium of 126 with a BUN of 57, creatinine at 0.88. She denied any chest pain. Does complain of some shortness of breath. No nausea. No vomiting. No diarrhea. No constipation. No abdominal pain. No bleeding from the nose or coughing of blood. The patient denies any history of NSAID use. The patient denies any history of kidney stones. No family history of kidney disease. The patient's albumin was found to be very low at 0.9 at admission. Liver enzymes slightly elevated. Today, her blood pressure is also slightly low. Lactic acid level was found to be 5.7. Nephrology Service has been consulted because of hyponatremia and volume overload management. REVIEW OF SYSTEMS: Comprehensive review of 12 systems was done, found to be negative except as noted in the HPI. PAST MEDICAL HISTORY: 1. Diabetes. 2. Hypothyroidism. 3. Hyperlipidemia. 4. GERD. SURGICAL HISTORY: Hysterectomy. HOME MEDICATIONS: 1. Atorvastatin. 2. Flovent. 3. Levothyroxine. 4. Losartan. 5. Bumex. 6. Omeprazole. ALLERGIES: 1. Fish. 2. Dilaudid. 3. Morphine. 4. Penicillin. SOCIAL HISTORY: Smoking history, quit smoking 5 years ago. No alcohol or illicit drug use. Currently lives at [facility]. FAMILY HISTORY: Dad currently from [place]. No family history of kidney disease. PHYSICAL EXAMINATION: VITAL SIGNS: Blood pressure 97/59, heart rate of about 121, respirations of 20, saturating 96% on room air, temperature 98.2. GENERAL: The patient is alert, oriented x3, [...] pedal edema. No cyanosis. Peripheral pulses palpable. TOBACCO SHAKER: No focal deficit noted grossly. Cranial nerves II through XII are intact. PSYCH: Appropriate mood and affect and cooperative. SKIN: Warm, dry, pink and intact. DIAGNOSTIC STUDIES: LABORATORY RESULTS: Sodium 127, potassium 5.0, chloride 95, bicarb 21, glucose of 230, BUN 55, creatinine of 0.80, and calcium of 7.8 with albumin of 1.0. Alkaline phosphatase of 205, AST of 58, and ALT of 29. WBC of 11.0, hemoglobin 11.8, hematocrit 35.0, and platelet count of 468. TSH of 3.670. INR of 1.2. ASSESSMENT: 1. Mild hyponatremia corrected for hyperglycemia is 132, volume overload with hypotension, likely appropriate release of ADH from intravascular volume depletion, on Bumex at home. 2. Anasarca. 3. Low albumin level. 4. Hypotension. PLAN: 1. We will get urine sodium. We will get urine and serum osmolality. We will place her on free water restriction of 1 L per day. 2. We will give albumin infusion. 3. We will give a dose of midodrine. 4. We will get urine lytes and UA. 5. Serial sodium monitoring. Thank you very much for the consult. We will follow along with other physicians. /[id number] Anabel Spring MD MA/JOHANNA / NGUYỄN / MODL /[id number] Electronically signed by Angela, [facility] Conversion [employer] Principal Cerner at 08/02/2022 6:13 PM CDT documented in this encounter Plan of Treatment Not on file documented as of this encounter Visit Diagnoses Not on filedocumented in this encounter
--- OUTSIDE RECORDS SUMMARY | 2024-10-17 13:13 | XMS_ITS | Encounter Summary ---
Author Organization [employer] ([place], [place], [place], [place]) Address [address] [place] [address] Care Team Providers Care Truck Farmer Name Role Phone Unavailable Primary Care Provider Unavailabl e Encounter Details Date Type Department Care Team (Late st Contact Info) Description 10/11/2020 Transcribed Document [facility] [place] Family Medicine [address] [place] [address] ProviderRadha MD [address] [place] [address] Social History Tobacco Use Types Packs/Day Years Used Date Smoking Tobacco: Never Assessed Comments Unknown Sex and Gender Information Value Date Recorded Sex Assigned at Not on file Legal Sex Female 7:21 PM CDT Gender Identity Not on file Sexual Orientation Not on file documented as of this encounter Miscellaneous Notes * Cerner Conversion Note - Radha ProviderMD - 10/11/2020 1:58 PM CDT Patient: LUH BOSCH Age: 59 years Sex: Female : 1960 Associated Diagnoses: None Author: SAMANTHA GREER, Subjective pt seen by me this morning, she tells me that she is miserable with right ear pain. she tells me that she feels like she has wax in her right ear and can not hear from it. she denies ear pain. no coughing or sob. diarrhea is slowing. no abd pain. she tells me that previously PCP has flushed her ears before, she is willing to trial debrox. Objective Intake and Output Intake & Output Totals Last 24 Hours (7a-7a) Intake (8 Events) Medications (20 mL) Oral Intake (960 mL) Other Intake (250 mL) Output (3 Events) Urine Voided (Volume) (2800 mL) Input Total: 1230 mL Output Total: 2800 mL Balance: -1570 mL VS/Measurements Vitals Signs (last 24 hrs) Last Charted Minimum Maximum Temp 97.7 (OCT 11 11:00) 97.7 (OCT 11 11:00) 98.4 (OCT 11 04:00) Mon HR 93 (OCT 11 11:00) 84 (OCT 11 07:57) 97 (OCT 10 23:34) SBP 105 (OCT 11 11:00) 105 (OCT 11 11:00) 129 (OCT 11 05:45) DBP 67 (OCT 11 11:00) 63 (OCT 10 14:34) 87 (OCT 10 23:34) MAP 77 (OCT 11 11:00) 77 (OCT 11 11:00) 104 (OCT 10 23:34) SpO2 97 (OCT 11 09:31) 96 (OCT 11 07:57) 97 (OCT 10 20:25) General: Alert and oriented, No acute distress. [...] & affect. Results Review General results Interpretation: OCT 11 05:00 136 L 101 H 29 / H 116 L 3.3 30 L 0.50 \ OCT 11 05:00 \ L 9.5 / 6.6 298 / L 30.0 \ Labs (Last four charted values) WBC 6.6 (OCT 11) 7.7 (OCT 05) 8.8 (OCT 04) 9.4 (OCT 03) HB L 9.5 (OCT 11) L 8.6 (OCT 05) L 8.8 (OCT 04) L 9.8 (OCT 03) HCT L 30.0 (CLAUDIA 27) L 27.2 (CLAUDIA 21) L 26.9 (CLAUDIA 20) L 30.6 (CLAUDIA 19) Plt 298 (CLAUDIA 27) 300 (LCAUDIA 21) 315 (CLAUDIA 20) H 443 (CLAUDIA 19) Na 136 (CLAUDIA 27) 142 (CLAUDIA 25) 141 (CLAUDIA 24) 141 (CLAUDIA 23) K L 3.3 (CLAUDIA 27) 3.5 (CLAUDIA 25) 3.9 (CLAUDIA 24) 3.8 (CLAUDIA 23) Cl L 101 (CLAUDIA 27) 106 (CLAUDIA 25) 106 (CLAUDIA 24) 107 (CLAUDIA 23) CO2 30 (CLAUDIA 27) 28 (CLAUDIA 25) 29 (CLAUDIA 24) 28 (CLAUDIA 23) BUN H 29 (CLAUDIA 27) H 28 (CLAUDIA 25) H 29 (CLAUDIA 24) H 32 (CLAUDIA 23) Cr L 0.50 (CLAUDIA 27) L 0.50 (CLAUDIA 25) L 0.40 (CLAUDIA 24) L 0.30 (CLAUDIA 23) Glu R H 116 (CLAUDIA 27) 90 (CLAUDIA 25) 105 (CLAUDIA 24) L 70 (CLAUDIA 23) Ca L 7.9 (CLAUDIA 27) L 8.3 (CLAUDIA 25) 8.6 (CLAUDIA 24) L 8.1 (CLAUDIA 23) Lactic C 5.3 (CLAUDIA 16) C 5.7 [...] No Radiology Results Found Impression and Plan hypomag, worse - replete - recheck in am hpyokalemia, worse - replete - recheck in am distributive shock due to 3rd spacing and intravascular solute/oncotic pressure - echocardiogram with nml EF - on midodrine currently - initially required pressors but now weaned off - s/p IV albumin C diff colitis - continue po vancomycin - diarrhea improved hyponatremia - volume overload with anasarca - bumex started 10/08, dc on 10/11 as bun/cr ratio elevated and pt likely intravascularly depleted. - 1800 cc fluid restriction severe protein calorie malnutrition - pt admits to very restrictive calorie diet - supplements started possible acute cystitis - urine may be contaminated - off antibiotics with the c diff type 2 dm - a1c 6.2 - ssi HLD - statin hypothyroidism - continue levothyroxine GERD - PPI morbid obesity - complicates all aspects of care altered hearing right ear, - debrox. d/w rn time spent: 25 min discharge goals: await rehab anticipated discharge disposition: [facility] Samantha Melendez Hospitalist pager- [phone] documented in this encounter Plan of Treatment Not on file documented as of this encounter Visit Diagnoses Not on filedocumented in this encounter
--- OUTSIDE RECORDS SUMMARY | 2024-10-17 13:13 | XMS_ITS | Encounter Summary ---
Author Organization [employer] ([place], [place], [place], [place]) Address [address] [place] [address] Care Team Providers Care Forensic Technician Name Role Phone Unavailable Primary Care Provider Unavailabl e Encounter Details Date Type Department Care Team (Late st Contact Info) Description 10/11/2020 Transcribed Document [facility] [place] [address] [place] [address] ProviderRadha MD [address], [place] [id number] Social History Tobacco Use Types Packs/Day Years Used Date Smoking Tobacco: Never Assessed Comments Unknown Sex and Gender Information Value Date Recorded Sex Assigned at Not on file Legal Sex Female 7:21 PM CDT Gender Identity Not on file Sexual Orientation Not on file documented as of this encounter Miscellaneous Notes * Cerner Conversion Note - Radha Reed MD - 10/11/2020 6:41 AM CDT Provider Notification Entered On: 10/11/2020 6:44 EDT Performed On: 10/11/2020 6:41 EDT by Yovana Whelan Non Emp RN Provider Notification Provider Notified of Concerns/Results : Other: PT C/O HEARD OF HEARING FOR RIGHT EAR Provider Notified of : Family/Patient medical claims representative requests a call Provider Notified Name : HOSSEIN CARRILLO MD Provider Notified Time : 10/11/2020 5:40 EDT Chain of Command Initiated : Yes Results to Provider Comment : DR CARRILLO told will come and see patient later as he has two transfer Yovana Whelan Non Emp RN - 10/11/2020 6:41 EDT Electronically signed by Angela [facility] Conversion Clinical Radiologist Cerner at 08/02/2022 6:19 PM CDT documented in this encounter Plan of Treatment Not on file documented as of this encounter Visit Diagnoses Not on filedocumented in this encounter
--- OUTSIDE RECORDS SUMMARY | 2024-10-17 13:13 | XMS_ITS | Encounter Summary ---
Author Organization [employer] ([place], [place], [place], [place]) Address [address] [place] [address] Care Team Providers Care Sand Mill Operator Facing Sand Name Role Phone Unavailable Primary Care Provider Unavailabl e Encounter Details Date Type Department Care Team (Late st Contact Info) Description 10/11/2020 Transcribed Document [facility] [place] [address] [place] [address] ProviderRadha MD [address] [place] [address] Social History Tobacco Use Types Packs/Day Years Used Date Smoking Tobacco: Never Assessed Comments Unknown Sex and Gender Information Value Date Recorded Sex Assigned at Not on file Legal Sex Female 7:21 PM CDT Gender Identity Not on file Sexual Orientation Not on file documented as of this encounter Miscellaneous Notes * Cerner Conversion Note - Historical ProviderMD - 10/11/2020 6:41 AM CDT Event Note Entered On: 10/11/2020 6:42 EDT Performed On: 10/11/2020 6:41 EDT by Yovana Whelan Non Emp RN Event Note Event Date/Time : 10/11/2020 5:30 EDT Event Location : Assigned room Yovana Whelan Non Emp RN - 10/11/2020 6:41 EDT documented in this encounter Plan of Treatment Not on file documented as of this encounter Visit Diagnoses Not on filedocumented in this encounter
--- OUTSIDE RECORDS SUMMARY | 2024-10-17 13:13 | XMS_ITS | Encounter Summary ---
Author Organization [employer] ([place], [place], [place], [place]) Address [address] [place] [address] Care Team Providers Care Instructor Warper Name Role Phone Unavailable Primary Care Provider Unavailabl e Encounter Details Date Type Department Care Team (Late st Contact Info) Description 10/09/2020 Transcribed Document [facility] [place] Family Medicine [address] [place] [address] ProviderRadha MD [address] [place] [address] Social History Tobacco Use Types Packs/Day Years Used Date Smoking Tobacco: Never Assessed Comments Unknown Sex and Gender Information Value Date Recorded Sex Assigned at Not on file Legal Sex Female 7:21 PM CDT Gender Identity Not on file Sexual Orientation Not on file documented as of this encounter Miscellaneous Notes * Cerner Conversion Note - Radha ProviderMD - 10/09/2020 3:00 AM CDT Nutrition Assessment Entered On: 10/09/2020 12:26 EDT Performed On: 10/09/2020 12:40 EDT by LUH COTTRELL, RD, LD Nutrition Assessment Current Nutrition Regimen Comment : 10/08: Moderate f/u. Spoke with pt; reports a good appetite and drinks Pro2Go. Pt with +c-diff. 10/05: Moderate f/up. Spoke w/ pt today; reports okay appetite. Pt is eating well and drinking pro2go BID. Will continue to monitor. Dx; hyponatremia, fluid overload w/ anasarca, acute cystitis, c-diff enteritis PMH: T2DM, HTN, HLD, GERD, morbid obesity Meds: bumex, Lipitor, abx, lovenox, lantus, lispro, synthroid, probiotic, PPI, pain prn Labs: Gluc 90, FSB, 98, 121 Skin: 3+ edema/anasarca; no skin breakdown GI: LBM 10/07 diarrhea (+cdiff), +BS Diet: 60 gm CHO/Low Na, 1 L FR + pro2go BID Intakes: 75-100% x 11 Ht; 62 Wt: 346#/157.3 kg (09/30), no new wt (10/05), no new wt (10/09) Wt hx per pt: 314# (Apr 2020), 230# (July 2020) BMI: 63.4 IBW: 110# [address], DAVINA - 10/09/2020 12:37 EDT Nutrition Assessment Reason : Follow Up LUH COTTRELL RD, DAVINA - 10/09/2020 12:26 EDT Nutrition Diagnoses Oral or Nutrition Support Intake : Inadequate oral intake Oral or Nutr Support Intake Related To : decreased appetite Oral or Nutr Support Intake Evidenced by : 75-100% of meals Oral or Nutrition Support Intake Status : Resolved Weight : Obese, Class III Weight Related to : lifestyle Weight As Evidenced by : BMI=63.4 Weight Status : Active LUH COTTRELL RD, DAVINA - 10/09/2020 12:37 EDT Nutrition Interventions Meals and Snacks : Carbohydrate-modified diet, Sodium modified diet Nutrition Supplement Therapy : Commercial beverage LUH COTTRELL RD, - 10/09/2020 12:37 EDT Monitoring/Evaluation Energy Intake : Total energy intake Food Intake : Amount of food Protein Intake : Total protein Weight Status : Weight loss, Weight Maintanence Gastrointestinal Function : Bowel Function LUH COTTRELL RD, DAVINA - 10/09/2020 12:37 EDT Nutrition Recommendations Dietitian Recommendations : 1. Continue 60 gm CHO diet/Low Na diet w/ 1000 ml FR + pro2go BID. Goal: >75% PO diet 2. Monitor BG levels and adjust insulin prn. Goal: 70-180 3. Monitor wt 2x/wk. Pt +fluid. Goal: no unintended wt changes moderate risk LUH COTTRELL RD, DAVINA - 10/09/2020 12:37 EDT Electronically signed by Galen Miller Conversion Independent Sales Representative Cerner at 08/02/2022 6:22 PM CDT documented in this encounter Plan of Treatment Not on file documented as of this encounter Visit Diagnoses Not on filedocumented in this encounter
--- OUTSIDE RECORDS SUMMARY | 2024-10-17 13:13 | XMS_ITS | Encounter Summary ---
Author Organization [employer] ([place], [place], [place], [place]) Address [address] [place] [address] Care Team Providers Care Solution Professional Name Role Phone Unavailable Primary Care Provider Unavailabl e Encounter Details Date Type Department Care Team (Late st Contact Info) Description 10/11/2020 Transcribed Document [facility] [place] Family Medicine [address] [place] [address] ProviderRadha MD [address] [place] [address] Social History Tobacco Use Types Packs/Day Years Used Date Smoking Tobacco: Never Assessed Comments Unknown Sex and Gender Information Value Date Recorded Sex Assigned at Not on file Legal Sex Female 7:21 PM CDT Gender Identity Not on file Sexual Orientation Not on file documented as of this encounter Miscellaneous Notes * Cerner Conversion Note - Historical ProviderMD - 10/11/2020 5:00 AM CDT Chart Check - Review Order Profile Entered On: 10/11/2020 4:28 EDT Performed On: 10/11/2020 5:00 EDT by Yovana Whelan Non Emp RN Chart Check Power[employer]ans Initiated/Discontinued as Appropriate : Yes All Active Orders Reviewed : Yes Yovana Whelan Non Emp RN - 10/11/2020 4:27 EDT documented in this encounter Plan of Treatment Not on file documented as of this encounter Visit Diagnoses Not on filedocumented in this encounter
--- OUTSIDE RECORDS SUMMARY | 2024-10-17 13:13 | XMS_ITS | Encounter Summary ---
Author Organization [employer] ([place], [place], [place], [place]) Address [address] [place] [address] Care Team Providers Care Blade Bender Furnace Tender Name Role Phone Unavailable Primary Care Provider Unavailabl e Encounter Details Date Type Department Care Team (Late st Contact Info) Description 09/29/2020 Transcribed Document [facility] [place] Medicine [address] [place] [address] ProviderRadha MD [address] [place] [address] Social History Tobacco Use Types Packs/Day Years Used Date Smoking Tobacco: Never Assessed Comments Unknown Sex and Gender Information Value Date Recorded Sex Assigned at Not on file Legal Sex Female 7:21 PM CDT Gender Identity Not on file Sexual Orientation Not on file documented as of this encounter Miscellaneous Notes * Cerner Conversion Note - Radha ProviderMD - 09/29/2020 10:20 PM CDT Admission History, Adult Entered On: 09/29/2020 23:23 EDT Performed On: 09/29/2020 22:20 EDT by Marlee Richmond RN Advance Directive Patient has Advance Directive *Q : No, patient refuses Advance Directive information Marlee Richmond RN - 09/29/2020 23:18 EDT Anesthesia/Transfusion History Family History of Anesthesia Reaction : No prior transfusion(s) Blood Transfusion Acceptable to Patient : Yes Transfusion History : Prior anesthesia without reaction Family History of Anesthesia Reaction : None Marlee Richmond RN - 09/29/2020 23:18 EDT Functional Assessment Living Situation : Home Patient Lives With : Alone Current Home Treatments : Blood glucose monitoring, CPAP Marlee Richmond RN - 09/29/2020 23:18 EDT General Info Want Family/Rep/Phys Notified of Admit : No Emergency Contact #1 : sandoval pacheco Emergency Contact #1 Emergency Contact #1 Relationship : daughter Emergency Contact #2 : frandy paul Emergency Contact #2 Emergency Contact #2 Relationship : son Primary Language : [place] Citizen Communication Barrier : None Regional Sales Associate Needed : No Marlee Richmond RN - 09/29/2020 23:18 EDT Fall Risk Scales ABCs Fall Injury Risk Identification : Bones, Coagulation ABC Fall Injury Risk : Moderate to high injury risk Injury Moderate to High Risk Interventions : High Risk for Fall Injury sign in place per policy, Patient room close to nurses station, Specialty low bed, Supervise toileting as indicated, Wrist band (fall risk) on per policy, Fall Injury Intervention Refused ARBOLEDA Hx Falls Immediate/Within 3 Months : No Arboleda Secondary Diagnosis : Yes ARBOLEDA Use of Ambulatory Aid : Bed rest/Nurse assist ARBOLEDA IV Therapy or IV Access : Yes Aden Gait/Transferring : Weak Arboleda Mental Status : Oriented to own ability Arboleda Fall Risk Score : 45 ARBOLEDA Fall Scale Risk Level : 25-45 Medium Risk [place] Fall Interventions : Adequate lighting, Assistive devices within reach, Bed in low position, Call device within reach, Fall prevention handout/education per facility policy, Hourly comfort/safety rounds, Non-slip footwear, Personal items within reach, Reinforced to call for assistance before getting out of bed, Room free of clutter/spills, Upper side-rails up, Wheels locked, Wires/Cords secured Fall Moderate to High Risk Interventions : High Risk for Fall sign in place per policy, Supervise toileting as indicated, Transport methods appropriate to patient, Visual cues in place, Wrist band (fall risk) on Fall Risk Scale Calc Temp : 2 Marlee Richmond RN - 09/29/2020 23:18 EDT Health Histories Smoking Status : Never (less than 100 in lifetime; none in last 30 days) Smokeless Tobacco Status : Never Marlee Richmond RN - 09/29/2020 23:18 EDT Social History (As Of: 09/29/2020 23:23:27 EDT) Height and Weight, Clinical Dosing Height Source : Stated Height Entry Format : [place] Height, Feet : 5 ft(Converted to: 152 cm, 60 Inch) Height, Inches : 2 Inch(Converted to: 0 ft 2 Inch, 5.08 cm) Clinical Height : 157.48 cm Weight Source : Standing scale Weight Entry Format : [place] Clinical Dosing Weight : 157.27 kg Weight, Pounds : 346 lb Body Surface Area (BSA) : 2.42 m2 Body Mass Index : 63.4 kg/m2 (>HHI) [place] Body Weight : 50 kg Marlee Richmond RN - 09/29/2020 23:18 EDT Infectious Disease History Has the patient ever been tested for COVID-19? : Yes, Patient stated results Negative Date of COVID-19 test known? : No Does patient have symptoms of COVID-19? : No COVID19 Screening : No Experiencing Infectious Disease Symptoms : No symptoms Physical contact outside [place] in the last 30 days : No Infectious Disease History : None Tuberculosis Symptoms : None Marlee Richmond RN - 09/29/2020 23:18 EDT Influenza Vaccine Asmt, Adult Previous Vaccines from Immunization Schedule : No qualifying data available. Influenza Immunization, Current Season : Yes Marlee Richmond RN - 09/29/2020 23:18 EDT Pneumococcal Vaccine Previous Vaccines from Immunization Schedule : No qualifying data available. Pneumonia Immunization Received : Yes Marlee Richmond RN - 09/29/2020 23:18 EDT Order Details Transport Mode Order Detail [...] Crushed/Liquid : No Marlee Richmond RN - 09/29/2020 23:18 EDT Nutrition History Eating Poorly Due to Decreased Appetite : No Unplanned Weight Loss in Past 3-6 Months : No Malnutrition Screening Tool Total(mal) : 0 Malnutrition Screening Tool Risk Level : Patient not at risk Marlee Richmond RN - 09/29/2020 23:18 EDT [place] Suicide Severity Rating Scale (C-SSRS) CSSRS Past Month Wish to be : No CSSRS Past Month Suicidal Thoughts : No CSSRS Lifetime Suicide Behavior : No Suicide Severity Rating Score : 0 Suicide Severity Rating : No Additional Care Required at this time Marlee Richmond RN - 09/29/2020 23:18 EDT Psychosocial History Currently in Unsafe Situation : No Marlee Richmond RN - 09/29/2020 23:18 EDT Sleep Apnea Risk Assmt BiPAP/CPAP Ordered for Home Use : Yes Hx of Obstructive Sleep Apnea Diagnosis : Yes BiPAP/CPAP Used at Home : No Reason BiPAP/CPAP Not Used at Home : digna me Age over 50 Years Old : Yes Gender Male : No Marlee Richmond RN - 09/29/2020 23:18 EDT Valuables and Belongings Valuables and Belongings : Clothing Clothing : Common streetwear Clothing Disposition : Bedside Marlee Richmond RN - 09/29/2020 23:18 EDT documented in this encounter Plan of Treatment Not on file documented as of this encounter Visit Diagnoses Not on filedocumented in this encounter
--- OUTSIDE RECORDS SUMMARY | 2024-10-17 13:14 | XMS_ITS | Encounter Summary ---
Author Organization [employer] ([place], [place], [place], [place]) Address [address] [place] [address] Care Team Providers Care Pharmacy Director Name Role Phone Unavailable Primary Care Provider Unavailabl e Encounter Details Date Type Department Care Team (Late st Contact Info) Description 10/04/2020 Transcribed Document [facility] [place] [address] [place] [address] ProviderRadha MD [address] [place] [address] Social History Tobacco Use Types Packs/Day Years Used Date Smoking Tobacco: Never Assessed Comments Unknown Sex and Gender Information Value Date Recorded Sex Assigned at Not on file Legal Sex Female 7:21 PM CDT Gender Identity Not on file Sexual Orientation Not on file documented as of this encounter Miscellaneous Notes * Cerner Conversion Note - Historical ProviderMD - 10/04/2020 7:19 PM CDT Event Note Entered On: 10/04/2020 19:21 EDT Performed On: 10/04/2020 19:19 EDT by Lisa Cordova RN-PATIENT CARE BEDSIDE NON-EXEMPT Event Note Event Date/Time : 10/04/2020 17:30 EDT Event Details : Nursing assessment additional narrative Description of Event : Informed pt about taking about the neff cathether, pt refused, educated on the reason for neff removal, risk of infection, and purwick, pt states, I have a weak bladder, I cannot move, my skin is very fragile and will breakdown ; will reassess tomorrow Lisa Cordova RN-PATIENT CARE BEDSIDE NON-EXEMPT - 10/04/2020 19:19 EDT documented in this encounter Plan of Treatment Not on file documented as of this encounter Visit Diagnoses Not on filedocumented in this encounter
--- OUTSIDE RECORDS SUMMARY | 2024-10-17 13:14 | XMS_ITS | Encounter Summary ---
Author Organization [employer] ([place], [place], [place], [place]) Address [address] [place] [address] Care Team Providers Care Epic Kaleidoscope Analyst Name Role Phone Unavailable Primary Care Provider Unavailabl e Encounter Details Date Type Department Care Team (Late st Contact Info) Description 10/04/2020 Transcribed Document [facility] [place] [address] [place] [address] ProviderRadha MD [address] [place] [address] Social History Tobacco Use Types Packs/Day Years Used Date Smoking Tobacco: Never Assessed Comments Unknown Sex and Gender Information Value Date Recorded Sex Assigned at Not on file Legal Sex Female 7:21 PM CDT Gender Identity Not on file Sexual Orientation Not on file documented as of this encounter Miscellaneous Notes * Cerner Conversion Note - Historical ProviderMD - 10/04/2020 2:00 AM CDT Club Director Details Entered On: 10/04/2020 2:14 EDT Performed On: 10/04/2020 2:00 EDT by Desire Verduzco Order Details [...] Meds Crushed/Liquid : No Desire Verduzco - 10/04/2020 2:14 EDT Electronically signed by Galne Miller Conversion Delinquency Prevention Social Worker Cerner at 08/02/2022 6:13 PM CDT documented in this encounter Plan of Treatment Not on file documented as of this encounter Visit Diagnoses Not on filedocumented in this encounter
--- OUTSIDE RECORDS SUMMARY | 2024-10-17 13:14 | XMS_ITS | Encounter Summary ---
Author Organization [employer] ([place], [place], [place], [place]) Address [address] [place] [address] Care Team Providers Care Cant Gang Sawyer Name Role Phone Unavailable Primary Care Provider Unavailabl e Encounter Details Date Type Department Care Team (Late st Contact Info) Description 10/12/2020 Transcribed Document [facility] [place] Family Medicine [address] [place] [address] ProviderRadha MD [address] [place] [address] Social History Tobacco Use Types Packs/Day Years Used Date Smoking Tobacco: Never Assessed Comments Unknown Sex and Gender Information Value Date Recorded Sex Assigned at Not on file Legal Sex Female 7:21 PM CDT Gender Identity Not on file Sexual Orientation Not on file documented as of this encounter Miscellaneous Notes * Cerner Conversion Note - Radha ProviderMD - 10/12/2020 4:21 PM CDT On Going Discharge Planning Entered On: 10/12/2020 16:22 EDT Performed On: 10/12/2020 16:21 EDT by BHARGAVI MEYER RN-Site TechnicianCognos Architect Progress Note Discharge Arrangements : Patient Post-Acute Information Patient Name: LUH BOSCH Gender: Female : [birth year] Age: 59 Years No Post-Acute Placement(s) Listed No Post-Acute Service(s) Listed No [place] Referral(s) Listed Discharge Options Discussed with Patient : Acute rehabilitation, Discharge transportation, DME, Home Health, Short term rehabilitation Barriers to Discharge Identified : No long term bed available Barriers to Discharge Unresolved : No long term bed available, Other: precert Patient Offered Choice/Affiliations Explained : Yes BHARGAVI MEYER RN-Site Technician - 10/12/2020 16:21 EDT Narrative Progress Note Narrative Progress Note : precert approved for [facility] and ems arranged for 10/13@1100. attending and pt aware and agreed. per pt, left vm on dtr's line. mariama from [facility] updated. Historical Progress Note : ELOS 3, hospital day 912 [address] [facility] updated per mariama. For hopeful precert initiated at [facility]. EMS arranged for 10/14@1100, trip # [id number]. Bariatric bed and bariatric stretcher requested at sn[facility] and ems. BHARGAVI MEYER, SUSANA-Site Technician - 10/12/20 12:17:36 ELOS 3, hospital day 8, RRS 59, she needs a [facility], referrals sent to Mariama mcarthur with [facility] assessing for bariatric bed at [facility] or [facility] LIAM COWAN Rn-Site Technician - 10/08/20 17:55:50 Received call from [facility] [phone] advising CM their facility is unable to meet pt's needs - r/t C-Diff; weight - non-ambulatory w/ bed activity; pt on transfer to [facility] - notified CM. KAROLINA PLEITEZ Rn-Site Technician - 10/07/20 11:01:00 HD#6; ELOS 3; MRR; BOOST 7 - GenEdema/Anasarca; received voice mail from [facility] - DON requesting additional clinical information - faxed this am; awaiting return call to confirm precert has been initiated. KAROLINA PLEITEZ Rn-Site Technician - 10/07/20 07:45:25 Dr. Pemberton tells CM pt is ready to transition and is appropriate for precert to be initiated with short-term rehab; spoke with pt and she is in agreement to go to [facility]. Contacted [facility] and she will initiate the precert and confirm with Dr. Whittaker. KAROLINA PLEITEZ Rn-Site Technician - 10/06/20 13:57:22 HD#5; ELOS 3; MRR; BOOST 7 - Generalized Edema/Anasarca = 02/2L; Vancomycin/Midodrine; declined to stand w/therapy - will need rehab r/t ongoing weakness; discussion w/pt's family about need for rehab - possible long-term placement if unable to progress; [facility] interested to discuss with [facility] [place] unable to meet pt's needs; continue to follow. KAROLINA PLEITEZ, Rn-Site Technician - 10/06/20 08:58:40 Received call from pt's daughter Leslie Og and she requested referrals be sent to [facility] in [place], [place] (Emme E2MS) and [facility] in [place], [place] ([facility]). KAROLINA PLEITEZ, Rn-Site Technician - 10/05/20 15:28:00 HD#4; ELOS 3; MRR; BOOST 7 - GenEdema/Hypernatremia/Anasarca - 02=2L; B/P 105/58; PO Vancomycin; Midodrine 10 mg TID; lytes to be replaced; Nephrology has signed off; pt MaxAx2 w/therapy; updates sent thru [facility] to [facility] and left another message for f/u to confirm pt may return and anticipated turn around time for precert; DCP return for rehab; will likely require ambulance for transport; pt on transfer out of [facility]. KAROLINA PLEITEZ Rn-Site Technician - 10/05/20 13:37:58 HD#4; ELOS 3; MRR; BOOST 7 - GenEdema/Hypernatremia/Anasarca - 02=2L; B/P 105/58; PO Vancomycin; Midodrine 10 mg TID; lytes to be replaced; Nephrology has signed off; pt MaxAx2 w/therapy; updates sent thru [facility] to [facility] and left another message for f/u to [...] ; initial referrals sent thru [facility] to [facility]. KAROLINA PLEITEZ Rn-Site Technician - 10/05/20 13:54:46 HD#1; ELOS 3; MRR; BOOST 7 - GenEdema/Hypernatremia/Anasarca - improving - 02=2L; Levo gtt; Midodrine; IV Bumex; Nephrology - 24 hr urine to eval for nephrotic syndrome; +CDiff; Rocephin/Doxy/Vanc; ltd work w/therapy - refusing OOB and knee/hip AROM; pt needs to be encouraged; DCP rehab - left message for [facility] [phone] to confirm receipt of referral; pt will need precert. KAROLINA PLEITEZ, Rn-Site Technician - 10/02/20 12:06:37 HD#1; ELOS 3; MRR; BOOST 7 - Transfer from [facility] for Generalized Edema; Nephrology consult; PP=818; RA; Doxycycline/Rocephin; met w/pt's adult children Leslie Og and Kishore Bosch ([phone]) who states DCP will be return to [facility] for ongoing rehab; explained pt will require a precert; updates clinicals sent to [facility] and voicemail left for intake [phone]; [phone]. KAROLINA PLEITEZ Rn-Site Technician - 10/01/20 14:32:34 BHARGAVI MEYER, SUSANA-Site Technician - 10/12/2020 16:21 EDT documented in this encounter Plan of Treatment Not on file documented as of this encounter Visit Diagnoses Not on filedocumented in this encounter
--- OUTSIDE RECORDS SUMMARY | 2024-10-17 13:14 | XMS_ITS | Encounter Summary ---
Author Organization [employer] ([place], [place], [place], [place]) Address [address] [place] [address] Care Team Providers Care Screener And Blender Name Role Phone Unavailable Primary Care Provider Unavailabl e Encounter Details Date Type Department Care Team (Late st Contact Info) Description 10/06/2020 Transcribed Document [facility] [place] Family Medicine [address] [place] [address] ProviderRadha MD [address] [place] [address] Social History Tobacco Use Types Packs/Day Years Used Date Smoking Tobacco: Never Assessed Comments Unknown Sex and Gender Information Value Date Recorded Sex Assigned at Not on file Legal Sex Female 7:21 PM CDT Gender Identity Not on file Sexual Orientation Not on file documented as of this encounter Miscellaneous Notes * Cerner Conversion Note - Historical ProviderMD - 10/06/2020 5:00 PM CDT Chart Check - Review Order Profile Entered On: 10/06/2020 18:42 EDT Performed On: 10/06/2020 17:00 EDT by MAURICIO DIAZ RN Chart Check Powerplans Initiated/Discontinued as Appropriate : Yes All Active Orders Reviewed : Yes MAURICIO DIAZ RN - 10/06/2020 18:42 EDT Electronically signed by Galen Miller Conversion Retail Service Lead Merchandiser Cerner at 08/02/2022 6:02 PM CDT documented in this encounter Plan of Treatment Not on file documented as of this encounter Visit Diagnoses Not on filedocumented in this encounter
--- OUTSIDE RECORDS SUMMARY | 2024-10-17 13:14 | XMS_ITS | Encounter Summary ---
Author Organization [employer] ([place], [place], [place], [place]) Address [address] [place] [address] Care Team Providers Care Business Systems Administrator Name Role Phone Unavailable Primary Care Provider Unavailabl e Encounter Details Date Type Department Care Team (Late st Contact Info) Description 10/04/2020 Transcribed Document [facility] Radiology [address] [place] [address] Malu Pemberton MD [address] [place], [place] [id number] Social History Tobacco Use Types Packs/Day Years Used Date Smoking Tobacco: Never Assessed Comments Unknown Sex and Gender Information Value Date Recorded Sex Assigned at Not on file Legal Sex Female 7:21 PM CDT Gender Identity Not on file Sexual Orientation Not on file documented as of this encounter Miscellaneous Notes * Cerner Conversion Note - Malu Pemberton MD - 10/04/2020 1:00 PM EDT Patient: LUH BOSCH Age: 59 years Sex: Female : 1960 Associated Diagnoses: None Author: MALU PEMBERTON MD-INT Basic Information Date of encounter 10/04/20 Patient is awake and alert On very low dose of pressor now Had albumin yesterday No diarrhea now. Physical Examination VS/Measurements Vitals Signs (last 24 hrs) Last Charted Minimum Maximum Temp 99 (OCT 04 12:00) 98 (OCT 03 16:00) 99.3 (OCT 04 04:00) Mon HR 93 (OCT 04 13:00) 84 (OCT 03:) 106 (OCT 04:) Resp Rate H 26 (OCT 04:) L 12 (OCT 04 08:10) H 37 (OCT 04:) SBP 99 (OCT 04:) L 83 (OCT 03:) 131 (OCT 04:) DBP L 57 (OCT 04:00) L 46 (OCT 04 04:00) 73 (OCT 04:) MAP 71 (OCT 04:) 61 (OCT 04:10) 96 (OCT 04:) SpO2 96 (OCT 04:) L 91 (OCT 04:00) 97 (OCT 03:) General: Alert and oriented, No acute distress, [...] will continue with IV albumin and midodrine in attempt ot wean off pressors. C.diff enteritis: increase oral vanc [...] clumps. UA noted, Culture with yeast and will remove neff and place pure wic catheter. stop abx with c.diff as well. CXR with opacities likely with fluid overload with anasarca. Type 2 diabetes mellitus,with A1c at 6.2% Hyperlipidemia - resume statin Hypothyroidism - normal TSH, resume synthroid GERD - continue home PPI Morbid Obesity, complicating all aspects of care. BMI: 63.4 DVT prophylaxis: on lovenox Disposition:Hold diuretics/added albumin/stop abx/neff removal for purewic/replace lytes Discussed with patient, and nursing. PT as tolerated Time spent with above 28 minutes documented in this encounter Plan of Treatment Not on file documented as of this encounter Visit Diagnoses Not on filedocumented in this encounter
--- OUTSIDE RECORDS SUMMARY | 2024-10-17 13:14 | XMS_ITS | Clinical Summary ---
Author Organization [facility] Address [address] [place] [address] Care Team Providers Care Broiler Chef Or Cook Name Role Phone Clarence Ram MD Primary Care Provider + [phone] Allergies Active Allergy Reactions Criticality Noted Date Comments Morphine Unknown - Patient st ates they do not know rxn details Low 08/22/2024 Penicillins Rash,Swelling,Unknow n - Patient states they do not know rxn details High 09/02/2013 Medications fluticasone-sa lmeterol (Advair HFA) 115-21 MCG/ACT inhaler every 12 hours. Acti ve Farxiga 10 MG tablet Take 1 tablet by mouth Daily. Active famotidine (Pepcid) 20 MG tablet 1 tab(s) orally once a day (at bedtime) for 90 days Active fluticasone (Flovent HFA) 110 MCG/ACT inhaler 4 Active gabapentin (Neurontin) 100 MG capsule every 12 hours. 4 Active Lantus 100 UNIT/ML injection vial 1 (one) time each day at the same time. 4 Active HumaLOG KWIKPEN 100 UNIT/ML injection pen 4 units subcutaneously 3 times a day with meals for 30 days 4 Active levothyroxine (Synthroid, Levoxyl) 50 MCG tablet Take 1 tablet by mouth Daily. Active midodrine (Proamatine) 10 MG tablet 1 TAB(S) ORALLY 3 TIMES A DAY NEEDED for 90 DAYS Active montelukast (Singulair) 10 MG tablet Take 1 tablet by mouth Daily. Active Encounters Date Type Department Care Team Description 08/22/2024 2:30 PM EDT Consult [facility] Plastic & Reconstructive Surgery [address] [place] [id number] Tiago Noguera MD Excessive and redundant skin and subcutaneous tissue (Primary Dx) 08/22/2024 Travel from Last 3 Months Family History Medical History Relation Name Comments Diabetes Father Heart attack Father Diabetes Maternal Grandfather Lung cancer Maternal Grandfather Conversions - Other Mother Blood in fection Hypercholesterolemia Mother Hypertension Mother Cerebral aneurysm Other Heart attack Paternal Grandfather Stroke Paternal Grandfather Relation Name Status Comments Father Maternal Grandfather Mother Other Paternal Grandfather Social History Tobacco Use Types Packs/Day Years [...] on file Sexual Orientation Not on file Last Filed Vital Signs Vital Sign Reading [...] Mass Index 32.98 08/22/2024 2:39 PM EDT Plan of Treatment Health Maintenance Due Date Last Done Comments [facility]-Depression Screening 1960 [facility]-HIV Screening 1960 [facility]-Hepatitis C Screening 1960 [facility]-Medicare Annual Wellness (AWV) 1960 [facility]-Infant/Child/Adol SDOH Screenings 1960 [facility]- SDOH Screenings 11/15/1979 [facility]-Adult SDOH Screenings 11/15/1979 [facility]-DTaP,Tdap,and Td Vaccines (1 - Tdap) 1980 CT Colonography 2006 Colonoscopy 2006 FIT-DNA 2006 FIT 2006 FOBT 2006 Sigmoidoscopy 2006 [facility]-Colorectal Cancer Screening 2006 [facility]-Breast Cancer Screening 11/15/2011 [id number] Vaccine (3 - Pfizer risk series) 09/29/2020 09/01/2020, 07/22/2020 [facility]-Influenza Vaccine (#1) 12/16/202412/27, 01/25/2023, 01/31/2022, Additional history exists [facility]-Hepatitis A Vaccines Aged Out 01/28/2019, 02/15 No longer eligible based on patient's age to complete this topic [facility]-Pneumococcal Vaccine: 50+ Years Completed 11/28/2022, 12/21/2016 [facility]-Zoster Vaccines Completed 11/28/2022, [facility]-RSV Vaccine: 60+ Years or Completed 02/20/2023 [facility]-Obesity Intervention Completed 08/22/2024 HPV Vaccines Aged Out No longer eligi ble based on patient's age to complete this topic [facility]-HIB Vaccines Aged Out No longer e ligible based on patient's age to complete this topic [facility]-IPV Vaccines Aged Out No longer e ligible based on patient's age to complete this topic [facility]-Rotavirus Vaccines Aged Out No lo nger eligible based on patient's age to complete this topic Insurance [id number] [address] [place] MEDIC[place] Care Teams Broiler Chef Or Cook Relationship Specialty Start Date End Date Clarence Ram MD [address] [place] [address] PCP - General 08/28/20
--- OUTSIDE RECORDS SUMMARY | 2024-10-17 13:14 | XMS_ITS | Encounter Summary ---
Author Organization [employer] ([place], [place], [place], [place]) Address [address] [place] [address] Care Team Providers Care Manager Market Name Role Phone Unavailable Primary Care Provider Unavailabl e Encounter Details Date Type Department Care Team (Late st Contact Info) Description 10/13/2020 Transcribed Document [facility] [place] [facility] [address] [place] [address] ProviderRadha MD [address] [place] [address] Social History Tobacco Use Types Packs/Day Years Used Date Smoking Tobacco: Never Assessed Comments Unknown Sex and Gender Information Value Date Recorded Sex Assigned at Not on file Legal Sex Female 7:21 PM CDT Gender Identity Not on file Sexual Orientation Not on file documented as of this encounter Miscellaneous Notes * Cerner Conversion Note - Radha Reed MD - 10/13/2020 8:17 AM CDT Patient: LUH BOSCH Age: 59 years Sex: Female : 1960 Associated Diagnoses: None Author: SAMANTHA GREER, Results Review Admission Date: Admit Date 09/30/2020 13:11 Discharge Date: 10/13/2020 Discharge Information discharge to [facility] Physical Examination VS/Measurements Vitals Signs (last 24 hrs) Last Charted Minimum Maximum Temp 98 (OCT 13 05:38) 97.7 (OCT 12 14:12) 98.7 (OCT 12 21:55) Mon HR 91 (OCT 13 05:38) 85 (OCT 12 08:31) 95 (OCT 12 21:55) Resp Rate 18 (OCT 13 00:40) 18 (OCT 12 09:00) 18 (OCT 12 09:00) SBP 117 (OCT 13 05:38) 103 (OCT 12 09:00) 128 (OCT 12 21:55) DBP 73 (OCT 13 05:38) 68 (OCT 12 09:00) 77 (OCT 12 21:55) MAP 87 (OCT 13 05:38) 78 (OCT 12 10:00) 90 (OCT 12 21:55) SpO2 96 (OCT 13 05:38) 95 (OCT 12 08:31) 96 (OCT 12 09:00) General: Alert and oriented, No acute distress. [...] deficits. Psychiatric: Cooperative, Appropriate mood & affect. Hospital Course Significant labs/imaging: No Radiology Results Found CBC Results (Current Encounter/Past 24 Hours) No CBC Results Found (Past 24 Hours) CMP Results (Current Encounter/Past 24 Hours) Bun/Creatinine 67.5 [place] 10/12/2020 09:09 eGFR >60 mL/min/1.73m2 10/12/2020 09:09 eGFR NonAfrican >60 mL/min/1.73m2 10/12/2020 09:09 Creatinine Level 0.40 mg/dL LOW 10/12/2020 09:09 Sodium Level 141 mmol/L 10/12/2020 09:09 Potassium Level 3.6 mmol/L 10/12/2020 09:09 Chloride Level 103 mmol/L 10/12/2020 09:09 Carbon Dioxide Level 29 mmol/L 10/12/2020 09:09 Anion Gap 13 10/12/2020 09:09 Blood Urea Nitrogen 27 mg/dL [place] 10/12/2020 09:09 Glucose Level 88 mg/dL 10/12/2020 09:09 Calcium Level 8.1 mg/dL LOW 10/12/2020 09:09 Magnesium Level 1.7 mg/dL 10/12/2020 09:09 09/30/2020 echocardiogram: Impression: Normal sized left ventricle. Mild left ventricular hypertrophy. Visually estimated ejection fraction 55% +/- 5%. Normal left ventricular systolic function with normal systolic strain pattern. Indeterminate diastolic function. Pleural effusion noted. No hemodynamically significant valvular heart disease. No masses or thrombi are seen. Consultants: nephrology associates Procedures: none Problem List: distributive shock due to 3rd spacing and intravascular solute/oncotic pressure - echocardiogram with nml EF - on midodrine TID currently - initially required pressors but now weaned off - s/p IV albumin hyponatremia - volume overload with anasarca - improved - 2000 cc fluid restriction - 24 hour urine did not show nephrotic syndrome hypomag - repleted hypokalemia, improved - repleted C diff colitis - po vancomycin severe protein calorie malnutrition - pt admits to very restrictive calorie diet prior to admission. - supplements started possible acute cystitis - urine may be contaminated - off antibiotics with the c diff type 2 dm - a1c 6.2 - ssi HLD - statin hypothyroidism - continue levothyroxine GERD - PPI morbid obesity - complicates all aspects of care altered hearing right ear - resolved History of Present Illness from H&P on 09/29 Luh Bosch is an incredibly pleasant 59-year-old female with past medical history significant for type 2 diabetes mellitus, hypertension, hyperlipidemia, GERD, and reported 2-month history of gross fluid overload was transferred to [facility] from [facility] with hyponatremia. The patient story is that on 07/25, she weighed 230 pounds, with a history of having some mild lower extremity edema. She reports she gained approximately 100 pounds of water weight in 3 days on 07/28. She was hospitalized at [facility], was intermittently hypotensive and having lower extremity weakness. She improved and was discharged back to [facility], where for the past 2 weeks she [...] was requested for higher level of care. Hospital course: Ms. Bosch was admitted and seen by nephrology, she was started on iv albumin and midodrine for hypotension, she required transfer to icu on 10/01 for pressors. She found to have c diff colitis on 10/02 and was started on po vancomycin. She eventually was weaned off pressors and sodium levels improved. she continues to have significant LE edema but hypotension precludes aggressive diuresis and she is likely third spacing her fluid. i recommend continued low dose bumex. she is being discharged to [facility]hab on 10/13. Discharge Follow Up Follow up with primary care provider - Within 5 to 7 days Discharge Activity Activity as tolerated Discharge Diet Diabetic diet (carb controlled), Special Instructions - 2000 mL fluid restriction per day. low sodium diet. Discharge Plan Discharge Summary Plan Discharge Status: stable. Discharge instructions given: to patient. Prescriptions: Home Medications (19) Active acetaminophen 500 mg oral tablet 500 mg = 1 Tab, PRN, Oral, Q4H Advair HFA 115 mcg-21 mcg/inh inhalation aerosol 2 Puff, Inhalation, BID atorvastatin 40 mg oral tablet 40 mg = 1 Tab, Oral, At Bedtime bumetanide 1 mg oral tablet 1 mg = 1 Tab, Oral, Daily FiberCon 625 mg oral tablet 625 mg = 1 Tab, Oral, BID Almaz-Q 1 Cap, Oral, Daily HumaLOG 100 units/mL injectable solution , SubCutaneous, AC and at Bedtime Isopto Tears 1 Drop, PRN, Eyes Both, QID Lantus 100 units/mL subcutaneous solution 10 Units, SubCutaneous, Daily levothyroxine 75 mcg (0.075 mg) oral tablet 75 mcg = 1 Tab, Oral, Daily midodrine 5 mg oral tablet 10 mg = 2 Tab, Oral, TID With Meals Multiple Vitamins oral tablet 1 Tab, Oral, Daily nystatin 100,000 units/g topical powder 1 Application, PRN, Topical, BID Pepcid 20 mg oral tablet 20 mg = 1 Tab, Oral, Daily Roxicodone 5 mg oral tablet 5 mg = 1 Tab, PRN, Oral, Q4H Singulair 10 mg oral tablet 10 mg = 1 Tab, Oral, Daily Tums 500 mg oral tablet, chewable 500 mg, PRN, Oral, BID vancomycin 50 mg/mL oral liquid 250 mg = 5 mL, Oral, Q6H for 5 more days. ZyrTEC 10 mg oral tablet 10 mg = 1 Tab, Oral, Daily . Time spent on discharge: 35 min Samantha Melendez Hospitalist documented in this encounter Plan of Treatment Not on file documented as of this encounter Visit Diagnoses Not on filedocumented in this encounter
--- OUTSIDE RECORDS SUMMARY | 2024-10-17 13:14 | XMS_ITS | Encounter Summary ---
Author Organization [employer] ([place], [place], [place], [place]) Address [address] [place] [address] Care Team Providers Care Ppa Teacher Name Role Phone Unavailable Primary Care Provider Unavailabl e Encounter Details Date Type Department Care Team (Late st Contact Info) Description 10/13/2020 Transcribed Document [facility] [place] Family Medicine [address] [place] [address] ProviderRadha MD [address] [place] [address] Social History Tobacco Use Types Packs/Day Years Used Date Smoking Tobacco: Never Assessed Comments Unknown Sex and Gender Information Value Date Recorded Sex Assigned at Not on file Legal Sex Female 7:21 PM CDT Gender Identity Not on file Sexual Orientation Not on file documented as of this encounter Miscellaneous Notes * Cerner Conversion Note - Historical ProviderMD - 10/13/2020 2:00 AM CDT Air Conditioning Unit Assembler Details Entered On: 10/13/2020 6:37 EDT Performed On: 10/13/2020 2:00 EDT by Kaitlyn Hess RN-TRAVELER Order Details Transport Mode Order Detail : Bed (including specialty) Isolation Precautions Order Detail : Contact precautions, Enteric precautions, Standard Precautions Order Detail : 0 Lift/Transfer : Maximal assist Central Line Order Detail : No Room Service : Appropriate Arterial Line : No Kaitlyn Hess RN-TRAVELER - 10/13/2020 6:37 EDT documented in this encounter Plan of Treatment Not on file documented as of this encounter Visit Diagnoses Not on filedocumented in this encounter
--- OUTSIDE RECORDS SUMMARY | 2024-10-17 13:14 | XMS_ITS | Encounter Summary ---
Author Organization [employer] ([place], [place], [place], [place]) Address [address] [place] [address] Care Team Providers Care Quality Rep Name Role Phone Unavailable Primary Care Provider Unavailabl e Encounter Details Date Type Department Care Team (Late st Contact Info) Description 10/13/2020 Transcribed Document [facility] [place] [facility] [address] [place] [address] ProviderRadha MD [address] [place] [address] Social History Tobacco Use Types Packs/Day Years Used Date Smoking Tobacco: Never Assessed Comments Unknown Sex and Gender Information Value Date Recorded Sex Assigned at Not on file Legal Sex Female 7:21 PM CDT Gender Identity Not on file Sexual Orientation Not on file documented as of this encounter Miscellaneous Notes * Cerner Conversion Note - Radha Reed MD - 10/13/2020 10:28 AM CDT [facility] [place], [place] [id number] [facility] :1960 Visit Time:09/30/2020 Your Visit Summary Your Care Team Admitting Physician - HOSSEIN CARRILLO MD Attending Physician - SAMANTHA GREER, DO Primary Care Physician - CASI, NOT LISTED Your Diagnosis C. difficile colitis Generalized edema, Generalized edema Discharge Vitals Temperature 36.7 ??C Heart Rate (Monitored) 91 Blood Pressure 117/73 What to do next Instructions From Your Care Team Discharge Activity: Discharge Activity: Activity as tolerated Diet: 2000 mL fluid restriction per day. low sodium diet, Discharge Diet: Diabetic diet (carb controlled) Follow-Up Appointments Follow Up with Follow up with primary care provider When Within 5 to 7 days Medications What How Much When Instructions Next Dose calcium carbonate (Tums 500 mg oral tablet, chewable) 500 Milligram(s) Oral Two Times A Day as needed for Heartburn famotidine (Pepcid 20 mg oral tablet) 1 Tablet(s) Oral Every Day 10/14 insulin glargine (Lantus 100 units/ mL subcutaneous solution) 10 Unit(s) SubCutaneous Every Day 10/14 lactobacillus acidophilus (Almaz-Q) 1 Capsule(s) Oral Every Day 10/14 midodrine (midodrine 5 mg oral tablet) 2 Tablet(s) Oral Three Times a Day With Meals 10/13 1300 montelukast (Singulair 10 mg oral tablet) 1 Tablet(s) Oral Every Day 10/14 ocular lubricant (Isopto Tears) 1 Drop(s) Eyes Both Four Times A Day as needed for Dry Eyes prn oxyCODONE (Roxicodone 5 mg oral tablet) 1 Tablet(s) Oral Every 4 Hours as needed for Pain (Moderate 4-6) Printed Prescription vancomycin (vancomycin 50 mg/ mL oral liquid) 5 Milliliter(s) Oral Every 6 Hours Duration: 5 Day(s) Printed Prescription 10/13 1200 atorvastatin (atorvastatin 40 mg oral tablet) 1 Tablet(s) Oral At Bedtime 10/13 pm acetaminophen (acetaminophen 500 mg oral tablet) 1 Tablet(s) Oral Every 4 Hours as needed for for pain/fever prn bumetanide (bumetanide 1 mg oral tablet) 1 Tablet(s) Oral Every Day 10/14 cetirizine (ZyrTEC 10 mg oral tablet) 1 Tablet(s) Oral Every Day 10/14 fluticasone-salmeterol (Advair HFA 115 mcg-21 mcg/ inh inhalation aerosol) 2 Puff(s) Inhalation Two Times A Day 10/13 pm insulin lispro (HumaLOG 100 units/ mL injectable solution) SubCutaneous Before Meals and at Bedtime Sliding Scale Insulin: use as directed 10/13 1200 levothyroxine (levothyroxine 75 mcg (0.075 mg) oral tablet) 1 Tablet(s) Oral Every Day 10/14 multivitamin (Multiple Vitamins oral tablet) 1 Tablet(s) Oral Every Day 10/14 nystatin topical (nystatin 100,000 units/ g topical powder) 1 Application(s) Topical Two Times A Day as needed for Other (See Comment) apply to affected areas as directed polycarbophil (FiberCon 625 mg oral tablet) 1 Tablet(s) Oral Two Times A Day 10/13 pm Take your medications faithfully. Do NOT skip medication. Do NOT stop taking medications without the direction of a physician. Carry a list of your medications with you at all times, and take this medication list with you to your first follow up visit. Report any side effects. Avoid herbal remedies unless discussed with your physician. As part of your treatment plan, your physician may have prescribed a limited course of a controlled substance. This medication may be given to help people with moderate or severe pain or for other medical conditions, but there are risks involved with treatment. Common side effects may include nausea, constipation, drowsiness, sweating, itching, dry mouth, and rash. More serious side effects may include cognitive and motor impairment, like problems with thinking, concentrating, alertness, and movement (e.g. slowed reflexes), and driving and operating heavy machinery can be dangerous. It is important for you to talk to your physician if you have these side effects or questions. These controlled substances can produce physical dependence and be habit-forming if taken for an extended period of time, which means that the body has gotten used to them and may experience withdrawal symptoms if they are abruptly stopped. Withdrawal symptoms can include runny nose, sweating, goose bumps, diarrhea, abdominal cramping, rapid heartbeat, difficulty sleeping, and nervousness. Please dispose of unused and medications per your retail pharmacy guidance. Allergies Fish Dilaudid morphine penicillin Immunizations This Visit No Immunizations Found Education Materials Low-Sodium Eating Plan Sodium, which is an element that makes up salt, helps you maintain a healthy balance of fluids in your body. Too much sodium can increase your blood pressure and cause fluid and waste to be held in your body. Your health care provider or dietitian may recommend following this plan if you have high blood pressure (hypertension), kidney disease, liver disease, or heart failure. Eating less sodium can help lower your blood pressure, reduce swelling, and protect your heart, liver, and kidneys. What are tips for following this plan? General guidelines ??? Most people on this plan should limit their sodium intake to 1,500???2,000 mg (milligrams) of sodium each day. Reading food labels ??? The Nutrition Facts label lists the amount of sodium in one serving of the food. If you eat more than one serving, you must multiply the listed amount of sodium by the number of servings. ??? Choose foods with less than 140 mg of sodium per serving. ??? Avoid foods with 300 mg of sodium or more per serving. Shopping ??? Look for lower-sodium products, often labeled as low-sodium or no salt added. ??? Always check the sodium content even if foods are labeled as unsalted or no salt added . ??? Buy fresh foods. ? Avoid canned foods and premade or frozen meals. ? Avoid canned, cured, or processed meats ??? Buy breads that have less than 80 mg of sodium per slice. Cooking ??? Eat more home-cooked food and less restaurant, buffet, and fast food. ??? Avoid adding salt when cooking. Use salt-free seasonings or herbs instead of table salt or sea salt. Check with your health care provider or pharmacist before using salt substitutes. ??? Cook with plant-based oils, such as canola, sunflower, or olive oil. Meal planning ??? When eating at a restaurant, ask that your food be prepared with less salt or no salt, if possible. ??? Avoid foods that contain MSG (monosodium glutamate). MSG is sometimes added to [place] food, bouillon, and some canned foods. What foods are recommended? The items listed may not be a complete list. Talk with your dietitian about what dietary choices are best for you. Grains Low-sodium cereals, including oats, puffed wheat and rice, and shredded wheat. Low-sodium crackers. Unsalted rice. Unsalted pasta. Low-sodium bread. Whole-grain breads and whole-grain pasta. Vegetables Fresh or frozen vegetables. No salt added canned vegetables. No salt added tomato sauce and paste. Low-sodium or reduced-sodium tomato and vegetable juice. Fruits Fresh, frozen, or canned fruit. Fruit juice. Meats and other protein foods Fresh or frozen (no salt added) meat, poultry, seafood, and fish. Low-sodium canned tuna and salmon. Unsalted nuts. Dried peas, beans, and lentils without added salt. Unsalted canned beans. Eggs. Unsalted nut butters. Dairy Milk. Soy milk. Cheese that is naturally low in sodium, such as ricotta cheese, fresh mozzarella, or Nigerian cheese Low-sodium or reduced-sodium cheese. Cream cheese. Yogurt. Fats and oils Unsalted butter. Unsalted margarine with no trans fat. Vegetable oils such as canola or olive oils. Seasonings and other foods Fresh and dried herbs and spices. Salt-free seasonings. Low-sodium mustard and ketchup. Sodium-free salad dressing. Sodium-free light mayonnaise. Fresh or refrigerated horseradish. Lemon juice. Vinegar. Homemade, reduced-sodium, or low-sodium soups. Unsalted popcorn and pretzels. Low-salt or salt-free chips. What foods are not recommended? The items listed may not be a complete list. Talk with your dietitian about what dietary choices are best for you. Grains Instant hot cereals. Bread stuffing, pancake, and biscuit mixes. Croutons. Seasoned rice or pasta mixes. Noodle soup cups. Boxed or frozen macaroni and cheese. Regular salted crackers. Self-rising flour. Vegetables Sauerkraut, pickled vegetables, and relishes. Olives. Serbian fries. Onion rings. Regular canned vegetables (not low-sodium or reduced-sodium). Regular canned tomato sauce and paste (not low-sodium or reduced-sodium). Regular tomato and vegetable juice (not low-sodium or reduced-sodium). Frozen vegetables in sauces. Meats and other protein foods Meat or fish that is salted, canned, smoked, spiced, or pickled. [place], ham, sausage, hotdogs, corned beef, chipped beef, packaged lunch meats, salt pork, jerky, pickled vance, anchovies, regular canned tuna, sardines, salted nuts. Dairy Processed cheese and cheese spreads. Cheese curds. Blue cheese. Feta cheese. String cheese. Regular cottage cheese. Buttermilk. Canned milk. Fats and oils Salted butter. Regular margarine. Ghee. [place] fat. Seasonings and other foods Onion salt, garlic salt, seasoned salt, table salt, and sea salt. Canned and packaged gravies. Worcestershire sauce. Tartar sauce. Barbecue sauce. Teriyaki sauce. Soy sauce, including reduced-sodium. Steak sauce. Fish sauce. Oyster sauce. Cocktail sauce. Horseradish that you find on the shelf. Regular ketchup and mustard. Meat flavorings and tenderizers. Bouillon cubes. Hot sauce and Tabasco sauce. Premade or packaged marinades. Premade or packaged taco seasonings. Relishes. Regular salad dressings. Salsa. Potato and tortilla chips. [place] chips and puffs. Salted popcorn and pretzels. Canned or dried soups. Pizza. Frozen entrees and pot pies. Summary ??? Eating less sodium can help lower your blood pressure, reduce swelling, and protect your heart, liver, and kidneys. ??? Most people on this plan should limit their sodium intake to 1,500???2,000 mg (milligrams) of sodium each day. ??? Canned, boxed, and frozen foods are high in sodium. Restaurant foods, fast foods, and pizza are also very high in sodium. You also get sodium by adding salt to food. ??? Try to cook at home, eat more fresh fruits and vegetables, and eat less fast food, canned, processed, or prepared foods. This information is not intended to replace advice given to you by your health care provider. Make sure you discuss any questions you have with your health care provider. Document Revised: 03/16/2018 Document Reviewed: 03/27/2017 [employer] Patient Education ?? 2020 [employer] Edema Edema is an abnormal buildup of fluids in the body tissues and under the skin. Swelling of the legs, feet, and ankles is a common symptom that becomes more likely as you get older. Swelling is also common in looser tissues, like around the eyes. When the affected area is squeezed, the fluid may move out of that spot and leave a dent for a few moments. This dent is called pitting edema. There are many possible causes of edema. Eating too much salt (sodium) and being on your feet or sitting for a long time can cause edema in your legs, feet, and ankles. Hot weather may make edema worse. Common causes of edema include: ??? Heart failure. ??? Liver or kidney disease. ??? Weak leg blood vessels. ??? Cancer. ??? An injury. ??? . ??? Medicines. ??? Being obese. ??? Low protein levels in the blood. Edema is usually painless. Your skin may look swollen or shiny. Follow these instructions at home: ??? Keep the affected body part raised (elevated) above the level of your heart when you are sitting or lying down. ??? Do not sit still or stand for long periods of time. ??? Do not wear tight clothing. Do not wear garters on your upper legs. ??? Exercise your legs to get your circulation going. This helps to move the fluid back into your blood vessels, and it may help the swelling go down. ??? Wear elastic bandages or support stockings to reduce swelling as told by your health care provider. ??? Eat a low-salt (low-sodium) diet to reduce fluid as told by your health care provider. ??? Depending on the cause of your swelling, you may need to limit how much fluid you drink (fluid restriction). ??? Take auos-kzz-gyrwdfg and prescription medicines only as told by your health care provider. Contact a health care provider if: ??? Your edema does not get better with treatment. ??? You have heart, liver, or kidney disease and have symptoms of edema. ??? You have sudden and unexplained weight gain. Get help right away if: ??? You develop shortness of breath or chest pain. ??? You cannot breathe when you lie down. ??? You develop pain, redness, or warmth in the swollen areas. ??? You have heart, liver, or kidney disease and suddenly get edema. ??? You have a fever and your symptoms suddenly get worse. Summary ??? Edema is an abnormal buildup of fluids in the body tissues and under the skin. ??? Eating too much salt (sodium) and being on your feet or sitting for a long time can cause edema in your legs, feet, and ankles. ??? Keep the affected body part raised (elevated) above the level of your heart when you are sitting or lying down. This information is not intended to replace advice given to you by your health care provider. Make sure you discuss any questions you have with your health care provider. Document Revised: 08/21/2019 Document Reviewed: 05/06/2017 [employer] Patient Education ?? 2020 [employer] Fluid Restriction With some health conditions, you must restrict your fluid intake. This means that you need to limit the amount of fluid that you drink each day (fluid restriction). When you have a fluid restriction, you must carefully measure and keep track of the amount of fluid that you drink. Your health care provider will identify the specific amount of fluid you are allowed each day (fluid allowance). This amount may depend on several things, such as: ??? How well your kidneys function. ??? How much fluid you are keeping (retaining) in your body tissues. ??? Your blood pressure. ??? Your heart function. ??? Your blood sodium level. What is my plan? Your health care provider recommends that you limit your fluid intake to per day. What counts toward my fluid intake? Your fluid intake includes all liquids that you drink, as well as any foods that become liquid at room temperature. The following are examples of some fluids that you will have to restrict: ??? Tea, coffee, soda, lemonade, milk, water, juice, sports drinks, and nutritional supplement beverages. ??? Alcoholic beverages. ??? Cream. ??? Gravy. ??? Ice cubes. ??? Soup and broth. The following are examples of foods that become liquid at room temperature. These foods will also count toward your fluid intake. ??? Ice cream and ice milk. ??? Frozen yogurt and sherbet. ??? Frozen ice pops. ??? Flavored gelatin. How do I keep track of my fluid intake? Each morning, fill a jug with the amount of water that is equal to your daily fluid allowance. You can use this water as a guideline for fluid allowance. Each time you take in any form of fluid (including ice cubes and foods that become liquid at room temperature), pour an equal amount of water out of the container. This helps you to see how much fluid you are taking in. It also helps you to see how much more fluid you can take in during the rest of the day. The following conversions may also be helpful in measuring your fluid intake: ??? 1 cup equals 8 oz (240 mL). ? cup equals 6 oz (180 mL). ? cup equals 5? oz (160 mL). ? cup equals 4 oz (120 mL). ? cup equals 2? oz (80 mL). ? cup equals 2 oz (60 mL). ??? 2 Tbsp equals 1 oz (30 mL). What are tips for following this plan? General instructions ??? Make sure that you stay within your recommended fluid allowance each day. Always measure and keep track of your fluids (including ice cubes and foods that become liquid at room temperature). ??? Use small cups and glasses and learn to sip fluids slowly. ??? Try frozen fruits between meals, such as grapes or strawberries. These can satisfy thirst without adding to your fluid intake. ??? Swallow your pills along with meals or soft foods such as applesauce or mashed potatoes, instead of with liquids. Doing this helps you to save your fluid allowance for something that you enjoy. Weigh yourself each day Weigh yourself every day. Keeping track of your daily weight can help you and your health care provider to notice as soon as possible if you are retaining too much fluid in your body. ??? Follow this sequence every mornin. Urinate. 2. Weigh yourself. 3. Eat breakfast. ??? Wear the same amount of clothing each time you weigh yourself. ??? Write down your daily weight. Give this weight record to your health care provider. If your weight is going up, you may be retaining too much fluid. Every 1 lb (0.45 kg) of body weight that you gain is a sign that your body is retaining 2 cups (480 mL) of fluid. Manage your thirst ??? Add lemon juice or a slice of fresh lemon to water or ice. Doing this helps to satisfy your thirst. ??? Freeze fruit juice or water in an ice cube tray. Use this as part of your fluid allowance. These cubes are useful for quenching your thirst. Before you freeze the juice or water, measure how much liquid you use to fill a cube section of the ice tray. Subtract this amount from your day's allowance each time you consume a frozen cube. ??? Avoid salty (high-sodium) foods. These foods make you thirsty and make it more difficult to stay within your daily fluid allowance. ??? Keep the temperature in your home at a cooler level. ??? Keep the air in your home as humid as possible. Dry air increases thirst. ??? Avoid being out in the hot sun, which can cause you to sweat and become thirsty. ??? To help avoid dry mouth, brush your teeth often or rinse out your mouth with mouthwash. Lemon wedges, hard sour candies, chewing gum, or breath spray may also help to moisten your mouth. What are some signs that I may be taking in too much fluid? You may be taking in too much fluid if: ??? Your weight increases. Contact your health care provider if you gain weight rapidly. ??? Your face, hands, legs, feet, and abdomen start to swell. ??? You have trouble breathing. Summary ??? With some health conditions, you must limit (restrict) your fluid intake. This means that you need to limit the amount of fluid you drink each day (fluid restriction). Your health care provider will identify the specific amount of fluid that you are allowed each day. ??? When you have a fluid restriction, you must carefully measure and keep track of the amount of fluid that you drink. ??? Your fluid intake includes all liquids that you drink, as well as any foods that become liquid at room temperature (such as ice cream and gelatin). ??? You may be taking in too much fluid if your weight increases, your body starts to swell, or you have trouble breathing. This information is not intended to replace advice given to you by your health care provider. Make sure you discuss any questions you have with your health care provider. Document Revised: 07/25/2019 Document Reviewed: 12/06/2017 [employer] Patient Education ?? 2020 [employer] Emergency Awareness and Preventative Care STROKE is an EMERGENCY Every Minute Counts Act FAST and Check for these signs: FACE Does the face look uneven? ARM Does one arm drift down? SPEECH Does their speech sound strange? TIME Call at any sign of stroke Stroke Risk Factors Atrial Fibrillation (irregular heartbeat) Diabetes Family history of stroke Heart Disease Heavy alcohol use High Blood Pressure High Cholesterol Physical inactivity and obesity Smoking Cigarette Smoking The facts are clear, cigarette smoking will shorten your life. Smoking can cause many illnesses along the way. As a healthcare provider, we recommend that you stop smoking. Assistance with quitting is available by contacting 6-069-HOORNOW. This is a free resource providing counseling, support, and referral. Or you may contact your personal physician. [facility]: The National Suicide Prevention Lifeline is a national network of local crisis centers that provides free and confidential emotional support to people in suicidal crisis or emotional distress 24 hours a day, 7 days a week. Don't Wait! Stop a Heart Attack Before it Starts What is a heart attack? A heart attack is damage or to a part of the heart from severely decreased or lack of blood flow to the heart. Over time, arteries can become narrow from the buildup of fat and cholesterol, which is called plaque. The plaque can rupture causing a blood clot to form. When the blood clot forms, the artery can become severely narrowed or completely blocked, causing a heart attack. Heart attack is the leading cause of in the [place]. 85% of muscle damage occurs within the first 2 hours. Delay in the recognition of heart attack symptoms increases the chances of . Know the early symptoms of a heart attack: Nausea Feeling of fullness in chest Jaw Pain Pain that travels down one or both arms Fatigue/being tired Anxiety Back Pain Chest pressure, squeezing, or discomfort Shortness of breath Sweating, or a cold sweat Feeling of impending doom There are unusual signs of a heart attack, too! Women, the elderly, and diabetics may present with atypical symptoms: Fainting/dizziness Weakness Confusion Risk Factors for a Heart Attack Some heart disease risk factors, such as age and family history, cannot be changed. Others, like smoking and lack of exercise, can be changed. Smoking High Cholesterol High Blood Pressure Family History Obesity Age Gender (Males are at higher risk) Lack of Exercise Diabetes Diet Stress Excessive Alcohol Intake If you or someone you know is experiencing the signs and symptoms of a heart attack, DON???T DELAY. Call immediately and seek help. If someone collapses, perform CPR! Do not attempt to drive if you are having symptoms of heart attack. Hands-Only CPR Why Hands-Only CPR? Hands-Only CPR has been shown to be as effective as conventional CPR for cardiac arrests that occur outside of a hospital. Survival depends on immediately receiving CPR from someone nearby. How do you perform Hands-Only CPR? There are two easy steps: Call 9-1-1 if you see a teen or adult collapse Push hard and fast in the center of the chest at a beat of 100 beats per minute. Save a life! 4 WAYS TO GET AHEAD OF SEPSIS SEPSIS is a MEDICAL EMERGENCY. Time matters! Infections put you and your family at risk for a life-threatening condition called sepsis. Sepsis is the body's extreme response to an infection. It is life-threatening, and without timely treatment, sepsis can rapidly lead to tissue damage, organ failure, and . Sepsis happens when an infection you already have-in your skin, lungs, urinary tract or somewhere else-triggers a chain reaction throughout your body. 1 PREVENT INFECTIONS Take good care of chronic conditions. Talk to your doctor about getting the recommended vaccines. 2 PRACTICE GOOD HYGIENE Wash your hands frequently. Keep cuts or open sores clean and covered until they are healed. 3 KNOW THE SYMPTOMS Confusion or disorientation Shortness of breath High heart rate Fever, shivering, or feeling very cold Extreme pain or discomfort Clammy or sweaty skin 4 ACT FAST Get medical care IMMEDIATELY if you suspect sepsis or if you have an infection that is not getting better or is getting worse. To learn more about sepsis and how to prevent infections, visit www.cdc.gov/sepsis. Test Results Laboratory or Other Results This Visit (last charted value for your 09/30/2020 visit) Hematology 10/11/2020 5:00 AM WBC: 6.6 K/uL -- Normal range between ( 4.5 and 10.5 ) RBC: 3.41 Million/uL -- Normal range between ( 3.93 and 5.22 ) Hct: 30.0 % -- Normal range between ( 34.1 and 44.9 ) Hgb: 9.5 g/dL -- Normal range between ( 11.2 and 15.7 ) Platelet Count: 298 K/uL -- Normal range between ( 163 and 369 ) MCH: 27.9 pg -- Normal range between ( 25.6 and 32.2 ) MCHC: 31.7 Gram/dL -- Normal range between ( 32.2 and 36.5 ) MCV: 88.0 fL -- Normal range between ( 79.0 and 94.8 ) Slide Review: No RDW: 19.9 % -- Normal range between ( 11.7 and 14.9 ) MPV: 9.4 fL -- Normal range between ( 9.4 and 12.4 ) 10/05/2020 4:31 AM Eos %: 2.0 % -- Normal range between ( 0.0 and 7.0 ) Bent #: 0.40 K/uL -- Normal range between ( 0.16 and 1.00 ) Eos #: 0.15 x10(3)/uL -- Normal range between ( 0.00 and 0.80 ) Bent %: 5.2 % -- Normal range between ( 3.0 and 9.0 ) Baso %: 0.9 % -- Normal range between ( 0.0 and 1.5 ) Hypochromia: 1+ RBC Morphology: Abnormal Baso #: 0.07 x10(3)/uL -- Normal range between ( 0.00 and 0.20 ) Neut %: 85.3 % -- Normal range between ( 34.0 and 71.0 ) Ovalocytes: 1+ Neut #: 6.54 K/uL -- Normal range between ( 1.56 and 6.13 ) Anisocytosis: 2+ Lymph %: 5.3 % -- Normal range between ( 19.3 and 53.1 ) Platelet Ct Estimate: Adequate Lymph #: 0.41 x10(3)/uL -- Normal range between ( 1.00 and 3.90 ) Poikilocytosis: 1+ IG#: 0.10 x10(3)/uL -- Normal range between ( 0.00 and 0.05 ) IG%: 1.30 % -- Normal range between ( 0.00 and 0.60 ) 10/04/2020 4:07 AM nRBC: 0.020 -- Normal range between ( 0.000 and 0.012 ) 10/01/2020 5:[address] Oth: 0 % -- Normal range between ( 0 and 5 ) Urinalysis 10/01/2020 11:38 AM Ur RBC: 10-20 /HPF Urine Nitrite: Negative Urine Leukocyte Esterase: Large Urine Appearance: Cloudy Urine Glucose Dipstick: Negative Urine Blood Dipstick: Large Urine Urobilinogen Dipstick: 0.2 EU/dL Ur Calcium Oxalate Crystals: 1+ Urine Protein Dipstick: Negative Ur Bacteria: 1+ Ur Yeast, Buddin+ Ur Squamous Epithelial Cells: 2-5 /HPF Urine Color: Yellow Ur WBC: 10-20 /HPF Urine Ketones Dipstick: Negative Urine pH Dipstick: 5.5 -- Normal range between ( 6.0 and 8.0 ) Ur Hyaline Casts: 2-5 /LPF Urine Bilirubin Dipstick: Negative Urine Specific Enola: 1.010 -- Normal range between ( 1.005 and 1.030 ) Urine Type.: U Cath Urine Culture if Indicated: Culture Ordered 10/01/2020 5:49 AM Ur Sulfate Crystals: Trace Urine Type: U Cath Ur WBC Clumps: Present Ur Transitional Epi Cells: 5-10 Microbiology 10/01/2020 11:38 AM Urine Culture: POS 10/01/2020 5:49 AM Campylobacter (jejuni, coli, upsaliensis: Not Detected Plesiomonas shigelloides: Not Detected Salmonella: Not Detected Yersinia enterocolitica: Not Detected Vibrio cholerae: Not Detected Enteroaggregative E. coli: Not Detected Enterotoxigenic E. coli lt/st: Not Detected Enteropathogenic E. coli: Not Detected Shigella/Enteroinvasive E. coli: Not Detected Cryptosporidium: Not Detected Cyclospora cayetanensis: Not Detected Entamoeba histolytica: Not Detected Giardia lamblia: Not Detected Adenovirus F40/41: Not Detected Astrovirus: Not Detected Norovirus GI/GII: Not Detected Rotavirus A: Not Detected Sapovirus (I,II,IV and V): Not Detected Shiga-like toxin-prod E. coli stx1/stx2: Not Detected Vibrio (parah.,vulnificus, and cholerae): Not Detected Urine Chemistry 10/02/2020 1:40 PM Protein Ur 24Hr: 396.0 mg/24Hr -- Normal range between ( 0.0 and 149.0 ) Volume Ur 24 Hr: 3300 mL 10/01/2020 11:38 AM Creatinine Urine Random: 30 mg/dL Protein Ur Winger: 24 mg/dL 10/01/2020 5:49 AM Urea Nitrogen Urine Random: 390 mg/dL Osmolality Urine: 284 mOsm/kg -- Normal range between ( 50 and 1400 ) Sodium Ur Winger: 18 mMole/Liter General Chemistry 10/13/2020 6:05 AM Glucose POC2: 77 mg/dL -- Normal range between ( 70 and 110 ) Device Comment 1: Device Comment 1 10/12/2020 8:15 AM Creatinine Level: 0.40 mg/dL -- Normal range between ( 0.55 and 1.02 ) Sodium Level: 141 mmol/L -- Normal range between ( 136 and 146 ) Potassium Level: 3.6 mmol/L -- Normal range between ( 3.5 and 5.1 ) Chloride Level: 103 mmol/L -- Normal range between ( 102 and 112 ) Carbon Dioxide Level: 29 mmol/L -- Normal range between ( 21 and 32 ) Anion Gap: 13 -- Normal range between ( 9 and 20 ) Bun/Creatinine: 67.5 -- Normal range between ( 8.0 and 20.0 ) Calcium Level: 8.1 mg/dL -- Normal range between ( 8.4 and 10.1 ) eGFR : >60 mL/min/1.73m2 eGFR NonAfrican: >60 mL/min/1.73m2 Glucose Level: 88 mg/dL -- Normal range between ( 74 and 106 ) Magnesium Level: 1.7 mg/dL -- Normal range between ( 1.5 and 2.4 ) Blood Urea Nitrogen: 27 mg/dL -- Normal range between ( 7 and 22 ) 10/09/2020 6:00 AM Phosphorus: 3.3 mg/dL -- Normal range between ( 2.5 and 4.9 ) Albumin Level: 1.6 Gram/dL -- Normal range between ( 3.4 and 5.0 ) 10/01/2020 1:03 AM Hgb A1C: 6.2 % eAVG Glucose: 131 mg/dL 09/30/2020 1:13 PM Uric Acid: 10.7 mg/dL -- Normal range between ( 2.6 and 6.0 ) Osmolality Serum: 293 mOsm/kg -- Normal range between ( 275 and 295 ) 09/30/2020 10:41 AM Lactic Acid Level: 5.3 mmol/L -- Normal range between ( 0.4 and 2.0 ) 09/30/2020 5:50 AM Bilirubin Total: 0.6 mg/dL -- Normal range between ( 0.2 and 1.2 ) A/G Ratio: 0.3 -- Normal range between ( 1.1 and 2.5 ) ALT: 29 Units/Liter -- Normal range between ( 13 and 56 ) AST: 58 Units/Liter -- Normal range between ( 5 and 37 ) Globulin: 3.5 Gram/dL -- Normal range between ( 1.5 and 4.5 ) Alk Phos: 305 Units/Liter -- Normal range between ( 27 and 136 ) Protein Total: 4.5 Gram/dL -- Normal range between ( 6.4 and 8.2 ) 09/29/2020 11:26 PM Ammonia Level: 20.0 uMol/L -- Normal range between ( 11.0 and 32.0 ) Cardiac Specific Markers 09/30/2020 1:13 PM CK: 55 Units/Liter -- Normal range between ( 26 and 192 ) 09/29/2020 11:26 PM ProBNP: 256 pg/mL -- Normal range between ( 0 and 125 ) Coagulation 09/29/2020 11:26 PM INR: 1.2 -- Normal range between ( 0.9 and 1.2 ) PT: 12.3 Second(s) -- Normal range between ( 9.2 and 12.0 ) Endocrinology 10/01/2020 1:03 AM Cortisol Level: 11.0 mcg/dL 09/29/2020 11:26 PM TSH: 3.670 mcInt Units/mL -- Normal range between ( 0.358 and 3.740 ) Protein & Immunoglobulin Studies 10/02/2020 1:40 PM Protein Ur Viktoria: 12 mg/dL 09/29/2020 11:26 PM Prealbumin: 3.7 mg/dL -- Normal range between ( 20.0 and 40.0 ) Infectious Disease 10/01/2020 5:49 AM C. Difficile Result: Positive Lab Miscellaneous 10/01/2020 5:49 AM Stool Consistency: Unformed Diagnostic Radiology 09/30/2020 10:29 AM CR Chest 1 Vw Portable: CR Chest 1 Vw Portable Echo 09/30/2020 7:25 AM EC Echo Complete: EC Echo Complete Patient Name:LUH BOSCH I have received and understand this information and was given the opportunity to ask questions. Patient/Car Repair Supervisor Name: Patient/Car Repair Supervisor Signature: Relationship to Patient: Clinician/Hospital Car Repair Supervisor Signature: Date: documented in this encounter Plan of Treatment Not on file documented as of this encounter Visit Diagnoses Not on filedocumented in this encounter
--- OUTSIDE RECORDS SUMMARY | 2024-10-17 13:14 | XMS_ITS | Encounter Summary ---
Author Organization [employer] ([place], [place], [place], [place]) Address [address] [place] [address] Care Team Providers Care Family Consumer Scientist Name Role Phone Unavailable Primary Care Provider Unavailabl e Encounter Details Date Type Department Care Team (Late st Contact Info) Description 10/04/2020 Transcribed Document [facility] [place] [address] [place] [address] ProviderRadha MD [address] [place] [address] Social History Tobacco Use Types Packs/Day Years Used Date Smoking Tobacco: Never Assessed Comments Unknown Sex and Gender Information Value Date Recorded Sex Assigned at Not on file Legal Sex Female 7:21 PM CDT Gender Identity Not on file Sexual Orientation Not on file documented as of this encounter Miscellaneous Notes * Cerner Conversion Note - Radha ProviderMD - 10/04/2020 5:00 PM CDT Chart Check - Review Order Profile Entered On: 10/04/2020 17:32 EDT Performed On: 10/04/2020 17:00 EDT by Lisa Cordova RN-PATIENT CARE BEDSIDE NON-EXEMPT Chart Check Powerplans Initiated/Discontinued as Appropriate : Yes All Active Orders Reviewed : Yes Lisa Cordova RN-PATIENT CARE BEDSIDE NON-EXEMPT - 10/04/2020 17:32 EDT documented in this encounter Plan of Treatment Not on file documented as of this encounter Visit Diagnoses Not on filedocumented in this encounter
--- OUTSIDE RECORDS SUMMARY | 2024-10-17 13:14 | XMS_ITS | Encounter Summary ---
Author Organization [employer] ([place], [place], [place], [place]) Address [address] [place] [address] Care Team Providers Care Supervisor Varnish Name Role Phone Unavailable Primary Care Provider Unavailabl e Encounter Details Date Type Department Care Team (Late st Contact Info) Description 09/30/2020 Transcribed Document [facility] [address] [place] [address] ProviderRadha MD [address] [place] [address] Social History Tobacco Use Types Packs/Day Years Used Date Smoking Tobacco: Never Assessed Comments Unknown Sex and Gender Information Value Date Recorded Sex Assigned at Not on file Legal Sex Female 7:21 PM CDT Gender Identity Not on file Sexual Orientation Not on file documented as of this encounter Miscellaneous Notes * Cerner Conversion Note - Radha ProviderMD - 09/30/2020 1:24 PM CDT UM Authorization Entered On: 09/30/2020 13:25 EDT Performed On: 09/30/2020 13:24 EDT by Daisy Davison Rn-Utilization Review Primary Insurance Authorization Authorization and Policy Numbers : Insurance 1 Health Plan: [employer] Policy Number: [id number] Authorization Number: Insurance 2 Health Plan: MEDICAID OF [place] Policy Number: [id number] Authorization Number: Insurance Primary Name : [employer] P[employer] Policy Number: [id number] Authorization Status-Primary : Awaiting callback Reference Number-Primary : [id number] Authorized Service Begin Date-Primary : 09/29/2020 EDT Authorization Comments-Primary : SUBMITTED ON [employer]. PAYOR HAS ACCESS TO EMR Historical Authorization Comments-Primary : No Authorization Comments Found Daisy Davison Rn-Utilization Review - 09/30/2020 13:24 EDT documented in this encounter Plan of Treatment Not on file documented as of this encounter Visit Diagnoses Not on filedocumented in this encounter
--- OUTSIDE RECORDS SUMMARY | 2024-10-17 13:14 | XMS_ITS | Encounter Summary ---
Author Organization [employer] ([place], [place], [place], [place]) Address [address] [place] [address] Care Team Providers Care Concert Promoter Name Role Phone Unavailable Primary Care Provider Unavailabl e Encounter Details Date Type Department Care Team (Late st Contact Info) Description 10/02/2020 Transcribed Document [facility] [place] [address] [place] [address] ProviderRadha MD [address] [place] [address] Social History Tobacco Use Types Packs/Day Years Used Date Smoking Tobacco: Never Assessed Comments Unknown Sex and Gender Information Value Date Recorded Sex Assigned at Not on file Legal Sex Female 7:21 PM CDT Gender Identity Not on file Sexual Orientation Not on file documented as of this encounter Miscellaneous Notes * Cerner Conversion Note - Historical ProviderMD - 10/02/2020 2:00 AM CDT Support Services Tech Details Entered On: 10/02/2020 0:09 EDT Performed On: 10/02/2020 2:00 EDT by Natasha Sweeney, RN Order Details Transport Mode Order Detail : Bed (including specialty) Isolation Precautions Order Detail : Enteric precautions, Standard Precautions Order Detail : 0 IV Order Detail : 1 Oxygen Order Detail : 1 Nurse Collect Order Detail : 1 Lift/Transfer : Maximal assist Central Line Order Detail : No Room Service : Appropriate Arterial Line : No Patient Needs Meds Crushed/Liquid : No Natasha Sweeney RN - 10/02/2020 0:08 EDT documented in this encounter Plan of Treatment Not on file documented as of this encounter Visit Diagnoses Not on filedocumented in this encounter
--- OUTSIDE RECORDS SUMMARY | 2024-10-17 13:14 | XMS_ITS | Encounter Summary ---
Author Organization [employer] ([place], [place], [place], [place]) Address [address] [place] [address] Care Team Providers Care Desk Director Name Role Phone Unavailable Primary Care Provider Unavailabl e Encounter Details Date Type Department Care Team (Late st Contact Info) Description 10/03/2020 Transcribed Document [facility] [place] Family Medicine [address] [place] [address] ProviderRadha MD [address] [place] [address] Social History Tobacco Use Types Packs/Day Years Used Date Smoking Tobacco: Never Assessed Comments Unknown Sex and Gender Information Value Date Recorded Sex Assigned at Not on file Legal Sex Female 7:21 PM CDT Gender Identity Not on file Sexual Orientation Not on file documented as of this encounter Miscellaneous Notes * Cerner Conversion Note - Radha ProviderMD - 10/03/2020 1:59 PM CDT Patient: LUH GLASS Age: 59 Years Sex: Female : 1960 Subjective hyponatremia corrected with diuretics. Will d/c diuretics and continue albumin infusion to raise the bp. Vital Signs T: 36.8 ??C TMIN: 36.1 ??C TMAX: 37.4 ??C HR: 94(Monitored) RR: 26 BP: 101/62 SpO2: 93% Oxygen Settings (Last) Oxygen Therapy Mode: Room air (10/03/20 12:00:00) Oxygen Flow Rate: 2 Liter/Min (10/03/20 06:00:00) Intake & Output Totals Last 24 Hours (7a-7a) Input Total: 694.7317 mL Output Total: 5110 mL Balance: -4415.2683 mL Physical Exam GENERAL: The patient is [...] pedal edema. No cyanosis. Peripheral pulses palpable. VP OF DIGITAL MARKETING: No focal deficit noted grossly. Cranial nerves [...] Hypotension. now on pressors and midodrine Recs D.C diuretics. Albumin 50g BID to support bp Need workup for nephrotic syndrome. 24h urine collection for protein quantification. Continue midodrine 10 mg TID. Supplement Elyte per the ICU protocol VTE Prophylaxis - Medical Enoxaparin 40 mg, SubCutaneous, Inj, [id number], Routine, Start 09/30/20 12:00:00 EDT, 09/30/20 11:44:00 EDT (KIERSTEN COLEY DO) Sequential Compression Device Start: 09/29/20 23:53:00 EDT, Bilateral, Length: Knee High, While patient is in bed, Continuous Order (JADE CURIEL) Medications albumin human 25% intravenous solution, 50 Gram= 200 mL, IV Piggyback, BID Bumex, 2 mg= 8 mL, IV Push, Daily calcium gluconate calcium gluconate + Sodium Chloride 0.9% intravenous solution 100 mL calcium gluconate + Sodium Chloride 0.9% intravenous solution 100 mL doxycycline, 100 mg= 1 Cap, Oral, BID Dulera 200 mcg-5 mcg/inh inhalation aerosol, 1 Puff, Inhalation, BID DuoNeb 0.5 mg-2.5 mg/3 mL inhalation solution, 3 mL, Nebulized Inhalation , RT_Q6H, PRN insulin lispro, 4 Units= 0.04 mL, SubCutaneous, TID With Meals insulin lispro sliding scale, Scale B:, SubCutaneous, AC and at Bedtime Isopto Tears, 1 Drop, Eyes Both, QID Lantus, 10 Units= 0.1 mL, SubCutaneous, Daily levothyroxine, 75 mcg= 1 Tab, Oral, Daily Lipitor, 40 mg= 1 Tab, Oral, Daily Lovenox, 40 mg= 0.4 mL, SubCutaneous, [id number] magnesium sulfate, 2 Gram= 50 mL, IV [...] pantoprazole, 40 mg= 1 Tab, Oral, Daily Pepcid, 20 mg= 1 Tab, Oral, BID, PRN Phenergan, 6.25 mg= 0.25 mL, IntraVENous, Q6H, PRN potassium chloride 10 mEq/50 mL intravenous solution, 10 mEq= 50 mL, IV Piggyback, Q1H, PRN potassium chloride 20 mEq oral tablet, extended release, 20 mEq= 1 Tab, Oral, Q2H, PRN potassium chloride 20 mEq oral tablet, extended release, 60 mEq= 3 Tab, Oral, Q2H, PRN potassium chloride 20 mEq oral tablet, extended release, 40 mEq= 2 Tab, Oral, BID Rocephin Roxicodone, 5 mg= 1 Tab, Oral, Q4H, PRN Singulair, 10 mg= 1 Tab, Oral, Daily sodium phosphate sodium phosphate Tums, 500 mg= 1 Tab, Oral, BID, PRN Tylenol, 650 mg= 2 Tab, Oral, Q4H, PRN Tylenol, 650 mg= 2 Tab, Oral, Q4H, PRN vancomycin oral solution, 250 mg= 5 mL, Oral, Q6H Zofran, 4 mg= 2 mL, IV Push, Q4H, PRN Lab Results Test Name Test Result Date/Time Sodium Level 138 mmol/L 10/03/2020 04:01 EDT Potassium Level 3.3 mmol/L (Low) 10/03/2020 04:01 EDT Chloride Level 103 mmol/L 10/03/2020 04:01 EDT Carbon Dioxide Level 28 mmol/L 10/03/2020 04:01 EDT Anion Gap 10 10/03/2020 04:01 EDT Glucose Level 128 mg/dL (High) 10/03/2020 04:01 EDT Blood Urea Nitrogen 45 mg/dL (High) 10/03/2020 04:01 EDT Creatinine Level 0.60 mg/dL 10/03/2020 04:01 EDT eGFR >60 mL/min/1.73m2 10/03/2020 04:01 EDT eGFR NonAfrican >60 mL/min/1.73m2 10/03/2020 04:01 EDT Bun/Creatinine 75.0 (High) 10/03/2020 04:01 EDT Calcium Level 8.0 mg/dL (Low) 10/03/2020 04:01 EDT Albumin Level 1.6 Gram/dL (Low) 10/03/2020 04:01 EDT Phosphorus 2.6 mg/dL 10/03/2020 04:01 EDT Device Comment 1 Protocols Followed 10/03/2020 06:27 EDT Device Comment 1 Protocols Followed 10/02/2020 21:07 EDT Glucose POC2 146 mg/dL (High) 10/03/2020 11:01 EDT Glucose POC2 118 mg/dL (High) 10/03/2020 06:27 EDT Glucose POC2 126 mg/dL (High) 10/02/2020 21:07 EDT Glucose POC2 120 mg/dL (High) 10/02/2020 16:17 EDT WBC 9.4 K/uL 10/03/2020 04:01 EDT RBC 3.59 Million/uL (Low) 10/03/2020 04:01 EDT Hgb 9.8 g/dL (Low) 10/03/2020 04:01 EDT Hct 30.6 % (Low) 10/03/2020 04:01 EDT MCV 85.2 fL 10/03/2020 04:01 EDT MCH 27.3 pg 10/03/2020 04:01 EDT MCHC 32.0 Gram/dL (Low) 10/03/2020 04:01 EDT Platelet Count 443 K/uL (High) 10/03/2020 04:01 EDT MPV 8.8 fL (Low) 10/03/2020 04:01 EDT RDW 19.7 % (High) 10/03/2020 04:01 EDT Slide Review No 10/03/2020 04:01 EDT Electronically signed by Angela, [facility] Conversion [employer] Press Feeder Cerner at 08/02/2022 6:26 PM CDT documented in this encounter Plan of Treatment Not on file documented as of this encounter Visit Diagnoses Not on filedocumented in this encounter
--- OUTSIDE RECORDS SUMMARY | 2024-10-17 13:14 | XMS_ITS | Encounter Summary ---
Author Organization [employer] ([place], [place], [place], [place]) Address [address] [place] [address] Care Team Providers Care Application Support Developer Name Role Phone Unavailable Primary Care Provider Unavailabl e Encounter Details Date Type Department Care Team (Late st Contact Info) Description 09/30/2020 Transcribed Document [facility] [place] Family Medicine [address] [place] [address] ProviderRadha MD [address] [place] [address] Social History Tobacco Use Types Packs/Day Years Used Date Smoking Tobacco: Never Assessed Comments Unknown Sex and Gender Information Value Date Recorded Sex Assigned at Not on file Legal Sex Female 7:21 PM CDT Gender Identity Not on file Sexual Orientation Not on file documented as of this encounter Miscellaneous Notes * Cerner Conversion Note - Historical ProviderMD - 09/30/2020 12:23 AM CDT Pain Assessment Entered On: 10/04/2020 2:14 EDT Performed On: 10/04/2020 0:38 EDT by Desire Verduzco Intervention Information: oxyCODONE Performed by Desire Verduzco on 10/03/2020 23:38:00 EDT oxyCODONE,5mg Oral,Pain (Moderate 4-6) Pain Assessment Pain Assessment : Follow-up assessment Pain Scale Goal : 3 Pain Scale Used : 0-10 Scale Pain Improved by Intervention : Yes Desire Verduzco - 10/04/2020 2:14 EDT Pain Scale Intensity : 1 Desire Verduzco - 10/04/2020 2:14 EDT Image 4 - Images currently included in the form version of this document have not been included in the text rendition version of the form. documented in this encounter Plan of Treatment Not on file documented as of this encounter Visit Diagnoses Not on filedocumented in this encounter
--- OUTSIDE RECORDS SUMMARY | 2024-10-17 13:14 | XMS_ITS | Encounter Summary ---
Author Organization [employer] ([place], [place], [place], [place]) Address [address] [place] [address] Care Team Providers Care Manufacturing Accountant Name Role Phone Unavailable Primary Care Provider Unavailabl e Encounter Details Date Type Department Care Team (Late st Contact Info) Description 10/12/2020 Transcribed Document [facility] [place] [address] [place] [address] ProviderRadha MD [address] [place] [address] Social History Tobacco Use Types Packs/Day Years Used Date Smoking Tobacco: Never Assessed Comments Unknown Sex and Gender Information Value Date Recorded Sex Assigned at Not on file Legal Sex Female 7:21 PM CDT Gender Identity Not on file Sexual Orientation Not on file documented as of this encounter Miscellaneous Notes * Cerner Conversion Note - Radha ProviderMD - 10/12/2020 1:20 PM CDT Patient: LUH GLASS Age: 59 years Sex: Female : 1960 Associated Diagnoses: None Author: SAMANTHA GREER, Subjective pt seen by me this morning, she tells met hat she is feeling okt lisa, no ear pain, no chest pain or sob, no abd pain or n/v, diarrhea is slowing. Objective Intake and Output Intake & Output Totals Last 24 Hours (7a-7a) Intake (12 Events) Medications (278 mL) Oral Intake (915 mL) Output (2 Events) Urine Voided (Volume) (1175 mL) Input Total: 1193 mL Output Total: 1175 mL Balance: 18 mL VS/Measurements Vitals Signs (last 24 hrs) Last Charted Minimum Maximum Temp 97.9 (OCT 12 10:00) 97.9 (OCT 12 10:00) 98 (OCT 12 03:22) Mon HR 90 (OCT 12 10:00) 85 (OCT 12 08:31) 100 (OCT 11 17:51) Resp Rate 18 (OCT 12 09:00) 18 (OCT 11 20:24) 18 (OCT 11 20:24) SBP 110 (OCT 12 10:00) 103 (OCT 12 09:00) 121 (OCT 11 16:00) DBP 69 (OCT 12 10:00) 66 (OCT 12 05:56) 79 (OCT 11 16:00) MAP 78 (OCT 12 10:00) 78 (OCT 12 05:56) 91 (OCT 11 16:00) SpO2 96 (OCT 12 09:00) 95 (OCT 12 08:16) 97 (OCT 11 20:24) General: Alert and oriented, No acute distress. [...] affect. Results Review General results Interpretation: OCT 12 08:15 141 103 H 27 / 88 3.6 29 L 0.40 \ Labs (Last four charted values) WBC 6.6 (OCT 11) 7.7 (OCT 05) 8.8 (CALUDIA 20) 9.4 (CLAUDIA 19) HB L 9.5 (OCT 11) L 8.6 (CLAUDIA 21) L 8.8 (CLAUDIA 20) L 9.8 (CLAUDIA 19) HCT L 30.0 (OCT 11) L 27.2 (CLAUDIA 21) L 26.9 (CLAUDIA 20) L 30.6 (CLAUDIA 19) Plt 298 (OCT 11) 300 (CLAUDIA 21) 315 (CLAUDIA 20) H 443 (SEP 19) Na 141 (OCT 12) 136 (OCT 11) 142 (SEP 25) 141 (CLAUDIA 24) K 3.6 (CLAUDIA 28) L 3.3 (OCT 11) 3.5 (CLAUDIA 25) 3.9 (CLAUDIA 24) Cl 103 (OCT 12) L 101 (OCT 11) 106 (CLAUDIA 25) 106 (CLAUDIA 24) CO2 29 (OCT 12) 30 (OCT 11) 28 (CLAUDIA 25) 29 (CLAUDIA 24) BUN H 27 (OCT 12) H 29 (OCT 11) H 28 (OCT 09) H 29 (SEP 24) Cr L 0.40 (OCT 12) L 0.50 (OCT 11) L 0.50 (CLAUDIA 25) L 0.40 (CLAUDIA 24) Glu R 88 (OCT 12) H 116 (OCT 11) 90 (OCT 09) 105 (SEP 24) Ca L 8.1 (OCT 12) L 7.9 (OCT 11) L 8.3 (SEP 25) 8.6 (CLAUDIA 24) Lactic C 5.3 (CLAUDIA 16) C 5.7 [...] 4.6 (CLAUDIA 15) ALB L 1.6 (SEP 25) L 1.6 (CLAUDIA 19) L 2.0 (CLAUDIA 18) L 1.0 (CLAUDIA 16) No Radiology Results Found Impression and Plan hypomag, improved 2 more grams mag today hpyokalemia, improved - 60 meq potassium again today distributive shock due to 3rd spacing and [...] hearing right ear, - debrox. d/w rn and CM time spent: 22 min discharge goals: await rehab, patient stable for discharge anticipated discharge disposition: [facility] Samantha Melendez Hospitalist pager- [phone] documented in this encounter Plan of Treatment Not on file documented as of this encounter Visit Diagnoses Not on filedocumented in this encounter
--- OUTSIDE RECORDS SUMMARY | 2024-10-17 13:14 | XMS_ITS | Encounter Summary ---
Author Organization [employer] ([place], [place], [place], [place]) Address [address] [place] [address] Care Team Providers Care Manager Psychiatry Name Role Phone Unavailable Primary Care Provider Unavailabl e Encounter Details Date Type Department Care Team (Late st Contact Info) Description 10/02/2020 Transcribed Document [facility] [place] Family Medicine [address] [place] [address] ProviderRadha MD [address] [place] [address] Social History Tobacco Use Types Packs/Day Years Used Date Smoking Tobacco: Never Assessed Comments Unknown Sex and Gender Information Value Date Recorded Sex Assigned at Not on file Legal Sex Female 7:21 PM CDT Gender Identity Not on file Sexual Orientation Not on file documented as of this encounter Miscellaneous Notes * Cerner Conversion Note - Radha ProviderMD - 10/02/2020 11:41 AM CDT Patient: LUH GLASS Age: 59 Years Sex: Female : 1960 Subjective Ns improving good UOP. UPC 1.3 gm. Will do 24hr collection. Vital Signs T: 36.6 ??C TMIN: 36.6 ??C TMAX: 37.1 ??C HR: 102(Monitored) RR: 30 BP: 101/66 SpO2: 95% Oxygen Settings (Last) Oxygen Therapy Mode: Nasal cannula (10/02/20 11:00:00) Oxygen Flow Rate: 2 Liter/Min (10/02/20 11:00:00) Intake & Output Totals Last 24 Hours (7a-7a) Input Total: 1447.8275 mL Output Total: 4295 mL Balance: -2847.1725 mL Physical Exam GENERAL: The patient is [...] pedal edema. No cyanosis. Peripheral pulses palpable. 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 Cranial nerves [...] Hypotension. now on pressors and midodrine Recs Bumex 2 mg daily IV Need workup for nephrotic syndrome. 24h urine collection for protein quantification. Continue midodrine 10 mg TID. Supplement Elyte per the ICU protocol VTE Prophylaxis - Medical Enoxaparin 40 mg, SubCutaneous, Inj, [id number], Routine, Start 09/30/20 12:00:00 EDT, 09/30/20 11:44:00 EDT (KIERSTEN COLEY DO) Sequential Compression Device Start: 09/29/20 23:53:00 EDT, Bilateral, Length: Knee High, While patient is in bed, Continuous Order (JADE CURIEL) Medications Bumex, 2 mg= 8 mL, IV Push, [...] Daily Lovenox, 40 mg= 0.4 mL, SubCutaneous, [id number] magnesium sulfate, 2 Gram= 50 mL, IV [...] Tab, Oral, Q4H, PRN vancomycin oral solution, 125 mg= 2.5 mL, Oral, Q6H Zofran, 4 mg= 2 mL, IV Push, Q4H, PRN Lab Results Test Name Test Result Date/Time Sodium Level 133 mmol/L (Low) 10/02/2020 03:51 EDT Potassium Level 3.2 mmol/L (Low) 10/02/2020 03:51 EDT Chloride Level 98 mmol/L (Low) 10/02/2020 03:51 EDT Carbon Dioxide Level 25 mmol/L 10/02/2020 03:51 EDT Anion Gap 13 10/02/2020 03:51 EDT Glucose Level 78 mg/dL 10/02/2020 03:51 EDT Blood Urea Nitrogen 50 mg/dL (High) 10/02/2020 03:51 EDT Creatinine Level 0.70 mg/dL 10/02/2020 03:51 EDT eGFR >60 mL/min/1.73m2 10/02/2020 03:51 EDT eGFR NonAfrican >60 mL/min/1.73m2 10/02/2020 03:51 EDT Bun/Creatinine 71.4 (High) 10/02/2020 03:51 EDT Calcium Level 8.1 mg/dL (Low) 10/02/2020 03:51 EDT Albumin Level 2.0 Gram/dL (Low) 10/02/2020 03:51 EDT Phosphorus 2.7 mg/dL 10/02/2020 03:51 EDT Device Comment 1 No action Require 10/02/2020 06:07 EDT Device Comment 1 No action Require 10/01/2020 20:43 EDT Glucose POC2 122 mg/dL (High) 10/02/2020 11:18 EDT Glucose POC2 137 mg/dL (High) 10/02/2020 08:28 EDT Glucose POC2 105 mg/dL 10/02/2020 06:07 EDT Glucose POC2 135 mg/dL (High) 10/01/2020 20:43 EDT Glucose POC2 163 mg/dL (High) 10/01/2020 16:50 EDT WBC 10.4 K/uL 10/02/2020 03:51 EDT RBC 3.42 Million/uL (Low) 10/02/2020 03:51 EDT Hgb 9.5 g/dL (Low) 10/02/2020 03:51 EDT Hct 28.2 % (Low) 10/02/2020 03:51 EDT MCV 82.5 fL 10/02/2020 03:51 EDT MCH 27.8 pg 10/02/2020 03:51 EDT MCHC 33.7 Gram/dL 10/02/2020 03:51 EDT Platelet Count 443 K/uL (High) 10/02/2020 03:51 EDT MPV 8.6 fL (Low) 10/02/2020 03:51 EDT RDW 19.2 % (High) 10/02/2020 03:51 EDT Slide Review No 10/02/2020 03:51 EDT documented in this encounter Plan of Treatment Not on file documented as of this encounter Visit Diagnoses Not on filedocumented in this encounter
--- OUTSIDE RECORDS SUMMARY | 2024-10-17 13:14 | XMS_ITS | Encounter Summary ---
Author Organization [employer] ([place], [place], [place], [place]) Address [address] [place] [address] Care Team Providers Care Accountant Assistant Name Role Phone Unavailable Primary Care Provider Unavailabl e Encounter Details Date Type Department Care Team (Late st Contact Info) Description 10/13/2020 Transcribed Document [facility] [place] [address] [place] [address] ProviderRadha MD [address] [place] [address] Social History Tobacco Use Types Packs/Day Years Used Date Smoking Tobacco: Never Assessed Comments Unknown Sex and Gender Information Value Date Recorded Sex Assigned at Not on file Legal Sex Female 7:21 PM CDT Gender Identity Not on file Sexual Orientation Not on file documented as of this encounter Miscellaneous Notes * Cerner Conversion Note - Historical ProviderMD - 10/13/2020 5:00 AM CDT Chart Check - Review Order Profile Entered On: 10/13/2020 6:37 EDT Performed On: 10/13/2020 5:00 EDT by Kaitlyn Hess RN-TRAVELER Chart Check Powerplans Initiated/Discontinued as Appropriate : Yes Kaitlyn Hess RN-TRAVELER - 10/13/2020 6:37 EDT documented in this encounter Plan of Treatment Not on file documented as of this encounter Visit Diagnoses Not on filedocumented in this encounter
--- OUTSIDE RECORDS SUMMARY | 2024-10-17 13:14 | XMS_ITS | Encounter Summary ---
Author Organization Healthcare Address [address] [id number] Care Team Providers Care Wheel Shop Supervisor Name Role Phone Clarence Ram MD Primary Care Provider [phone] Reason for Referral * Consultation (Routine) - Authorized Specialty Diagnoses / Procedures Referred By Danilo joseph Referred To Contact Plastic Surgery Diagnoses Abdominal obesity Wendy Payne, CD TECHNICIAN [address] [place] [address] Phone: tel: fax: Referral ID Status Reason Start Date Expiration Date Visits Requested Visits Authorized [id number] Authorized Specialty Services Required 09/29/2023 03/30/2025 1 1 Encounter Details Date Type Department Care Team (Late st Contact Info) Description 09/29/2023 [facility] [address] [place] [address] Wendy Payne, CD TECHNICIAN [address] [place] [address] Abdominal obesity (Primary Dx) Social History Tobacco Use Types Packs/Day Years Used Date Smoking Tobacco: Every Day Alcohol Use Standard Drinks/Week Comments Yes 0 (1 standard drink = 0.6 oz pure alcohol) Alcoholic Drinks/day: Minimum alcohol consumption Comments Unknown Sex and Gender Information Value Date Recorded Sex Assigned at Not on file Legal Sex Female 7:37 PM EDT Gender Identity Not on file Sexual Orientation Not on file documented as of this encounter Plan of Treatment Scheduled Referrals Name Type Priority Associated Diagnoses Order Schedule Ambulatory Referral to Plastic Surgery Outpatient Referral Routine Abdominal obesity Ordered: 09/29/2023 documented as of this encounter Visit Diagnoses Diagnosis Abdominal obesity- Primary Localized adiposity documented in this encounter Care Teams Wheel Shop Supervisor Relationship Specialty Start Date End Date Clarence Ram MD [address] [place] [address] [place] [address] PCP - General 08/28/20 documented as of this encounter
--- OUTSIDE RECORDS SUMMARY | 2024-10-17 13:14 | XMS_ITS | Encounter Summary ---
Author Organization [employer] ([place], [place], [place], [place]) Address [address] [place] [address] Care Team Providers Care Microbiology Teacher Name Role Phone Unavailable Primary Care Provider Unavailabl e Encounter Details Date Type Department Care Team (Late st Contact Info) Description 10/12/2020 Transcribed Document [facility] [place] [address] [place] [address] ProviderRadha MD [address] [place] [address] Social History Tobacco Use Types Packs/Day Years Used Date Smoking Tobacco: Never Assessed Comments Unknown Sex and Gender Information Value Date Recorded Sex Assigned at Not on file Legal Sex Female 7:21 PM CDT Gender Identity Not on file Sexual Orientation Not on file documented as of this encounter Miscellaneous Notes * Cerner Conversion Note - Historical ProviderMD - 10/12/2020 2:[address] Light Repairer Details Entered On: 10/12/2020 3:10 EDT Performed On: 10/12/2020 2:00 EDT by Mitchell Novak Rn Order Details Transport Mode Order Detail : Bed (including specialty) Isolation Precautions Order Detail : Contact precautions, Enteric precautions, Standard Precautions Order Detail : 0 IV Order Detail : 1 Lift/Transfer : Maximal assist Central Line Order Detail : No Room Service : Appropriate Arterial Line : No Patient Needs Meds Crushed/Liquid : No Mitchell Novak Rn - 10/12/2020 3:09 EDT documented in this encounter Plan of Treatment Not on file documented as of this encounter Visit Diagnoses Not on filedocumented in this encounter
--- OUTSIDE RECORDS SUMMARY | 2024-10-17 13:14 | XMS_ITS | Encounter Summary ---
Author Organization Healthcare Address [address] [place] [address] Care Team Providers Care Fish Roe Technician Name Role Phone Clarence Ram MD Primary Care Provider Encounter Details Date Type Department Care Team (Latest Contact Info) Description 08/22/2024 Travel Social History Tobacco Use Types Packs/Day Years [...] as of this encounter Plan of Treatment Not on file documented as of this encounter Visit Diagnoses Not on filedocumented in this encounter Additional Health Concerns Assessment Noted Time A Body Mass Index follow-up plan has been documented for the patient 08/28/2024 2:16 PM EDT documented as of this encounter Care Teams Fish Roe Technician Relationship Specialty Start Date End Date Clarence Ram MD [address] [place] [address] [place] [address] PCP - General 08/28/20 documented as of this encounter
--- OUTSIDE RECORDS SUMMARY | 2024-10-17 13:14 | XMS_ITS | Encounter Summary ---
Author Organization [employer] ([place], [place], [place], [place]) Address [address] [place] [address] Care Team Providers Care Senior Electrical Design Engineer Name Role Phone Unavailable Primary Care Provider Unavailabl e Encounter Details Date Type Department Care Team (Late st Contact Info) Description 10/02/2020 Transcribed Document [facility] [place] [address] [place] [address] ProviderRadha MD [address] [place] [address] Social History Tobacco Use Types Packs/Day Years Used Date Smoking Tobacco: Never Assessed Comments Unknown Sex and Gender Information Value Date Recorded Sex Assigned at Not on file Legal Sex Female 7:21 PM CDT Gender Identity Not on file Sexual Orientation Not on file documented as of this encounter Miscellaneous Notes * Cerner Conversion Note - Historical ProviderMD - 10/02/2020 5:00 PM CDT Chart Check - Review Order Profile Entered On: 10/02/2020 18:13 EDT Performed On: 10/02/2020 17:00 EDT by Alyse Sanchez RN Chart Check Powerplans Initiated/Discontinued as Appropriate : Yes All Active Orders Reviewed : Yes Alyse Sanchez RN - 10/02/2020 18:13 EDT Electronically signed by Angela [facility] Conversion Lead Technician Cerner at 08/02/2022 6:24 PM CDT documented in this encounter Plan of Treatment Not on file documented as of this encounter Visit Diagnoses Not on filedocumented in this encounter
--- OUTSIDE RECORDS SUMMARY | 2024-10-17 13:14 | XMS_ITS | Encounter Summary ---
Author Organization [employer] ([place], [place], [place], [place]) Address [address] [place] [address] Care Team Providers Care Forge Utility Worker Name Role Phone Unavailable Primary Care Provider Unavailabl e Encounter Details Date Type Department Care Team (Late st Contact Info) Description 10/03/2020 Transcribed Document [facility] [place] [address] [place] [address] ProviderRadha MD [address] [place] [address] Social History Tobacco Use Types Packs/Day Years Used Date Smoking Tobacco: Never Assessed Comments Unknown Sex and Gender Information Value Date Recorded Sex Assigned at Not on file Legal Sex Female 7:21 PM CDT Gender Identity Not on file Sexual Orientation Not on file documented as of this encounter Miscellaneous Notes * Cerner Conversion Note - Historical ProviderMD - 10/03/2020 5:00 AM CDT Chart Check - Review Order Profile Entered On: 10/03/2020 5:34 EDT Performed On: 10/03/2020 5:00 EDT by Desire Verduzco Chart Check Powerplans Initiated/Discontinued as Appropriate : Yes All Active Orders Reviewed : Yes Desire Verduzco - 10/03/2020 5:34 EDT Electronically signed by Angela [facility] Conversion Bottle Machine Operator Cerner at 08/02/2022 6:08 PM CDT documented in this encounter Plan of Treatment Not on file documented as of this encounter Visit Diagnoses Not on filedocumented in this encounter
--- OUTSIDE RECORDS SUMMARY | 2024-10-17 13:14 | XMS_ITS | Encounter Summary ---
Author Organization [employer] ([place], [place], [place], [place]) Address [address] [place] [address] Care Team Providers Care Compressor Repairer Name Role Phone Unavailable Primary Care Provider Unavailabl e Encounter Details Date Type Department Care Team (Late st Contact Info) Description 10/13/2020 Transcribed Document [facility] [place] [address] [place] [address] ProviderRadha MD [address] [place] [address] Social History Tobacco Use Types Packs/Day Years Used Date Smoking Tobacco: Never Assessed Comments Unknown Sex and Gender Information Value Date Recorded Sex Assigned at Not on file Legal Sex Female 7:21 PM CDT Gender Identity Not on file Sexual Orientation Not on file documented as of this encounter Miscellaneous Notes * Cerner Conversion Note - Radha Reed MD - 10/13/2020 10:24 AM CDT Patient Education Materials Follows: Fluid Restriction With some health conditions, you [...] provider. Document Revised: 07/25/2019 Document Reviewed: 12/06/2017 [employer] Patient Education ? 2020 [employer] Nutrition Low-Sodium Eating Plan Sodium, which is an [...] plan should limit their sodium intake to 1,500?2,000 mg (milligrams) of sodium each day. Reading [...] (monosodium glutamate). MSG is sometimes added to Welsh food, bouillon, and some canned foods. What [...] such as ricotta cheese, fresh mozzarella, or Honduran cheese Low-sodium or reduced-sodium cheese. Cream cheese. [...] Vegetables Sauerkraut, pickled vegetables, and relishes. Olives. Eritrean fries. Onion rings. Regular canned vegetables (not [...] salad dressings. Salsa. Potato and tortilla chips. Brimfield chips and puffs. Salted popcorn and pretzels. Canned or dried soups. Pizza. Frozen entrees and pot pies. Summary ??? Eating less sodium can help lower your blood pressure, reduce swelling, and protect your heart, liver, and kidneys. ??? Most people on this plan should limit their sodium intake to 1,500?2,000 mg (milligrams) of sodium each day. ??? [...] provider. Document Revised: 03/16/2018 Document Reviewed: 03/27/2017 [employer] Patient Education ? 2020 [email or web address]. Obstetrics and Gynecology Edema Edema is an abnormal buildup of [...] fluid you drink (fluid restriction). ??? Take qobo-sce-nodniiv and prescription medicines only as told by [...] provider. Document Revised: 08/21/2019 Document Reviewed: 05/06/2017 [employer] Patient Education ? 2020 [employer] documented in this encounter Plan of Treatment Not on file documented as of this encounter Visit Diagnoses Not on filedocumented in this encounter
--- OUTSIDE RECORDS SUMMARY | 2024-10-17 13:14 | XMS_ITS | Encounter Summary ---
Author Organization [employer] ([place], [place], [place], [place]) Address [address] [place] [address] Care Team Providers Care Field Case Manager Name Role Phone Unavailable Primary Care Provider Unavailabl e Encounter Details Date Type Department Care Team (Late st Contact Info) Description 10/02/2020 Transcribed Document [facility] [place] [address] [place] [address] ProviderRadha MD [address] [place] [address] Social History Tobacco Use Types Packs/Day Years Used Date Smoking Tobacco: Never Assessed Comments Unknown Sex and Gender Information Value Date Recorded Sex Assigned at Not on file Legal Sex Female 7:21 PM CDT Gender Identity Not on file Sexual Orientation Not on file documented as of this encounter Miscellaneous Notes * Cerner Conversion Note - Radha ProviderMD - 10/02/2020 12:02 PM CDT On Going Discharge Planning Entered On: 10/02/2020 12:06 EDT Performed On: 10/02/2020 12:02 EDT by KAROLINA PLEITEZ Rn-Planishing Press OperatorPress And Blow Machine Tender Progress Note Discharge Arrangements : Patient Post-Acute [...] : Clinical Condition of Patient KAROLINA PLEITEZ Rn-Planishing Press Operator - 10/02/2020 12:02 EDT Narrative Progress Note Narrative Progress Note : HD#1; ELOS 3; MRR; BOOST 7 - GenEdema/Hypernatremia/Anasarca - improving - 02=2L; Levo gtt; Midodrine; IV Bumex; Nephrology - 24 hr urine to eval for nephrotic syndrome; +CDiff; Rocephin/Doxy/Vanc; ltd work w/therapy - refusing OOB and knee/hip AROM; pt needs to be encouraged; DCP rehab - left message for [facility] [phone] to confirm receipt of referral; pt will need precert. Historical Progress Note : HD#1; ELOS 3; MRR; BOOST 7 - Transfer from [facility] for Generalized Edema; Nephrology consult; GX=182; RA; Doxycycline/Rocephin; met w/pt's adult children Leslie Ashbytyler and Kishore Bosch ([phone]) who states DCP will be return to [facility] for ongoing rehab; explained pt will require a precert; updates clinicals sent to [facility] and [facility] for intake [phone]; [phone]. KAROLINA PLEITEZ, Rn-Planishing Press Operator - 10/01/20 14:32:34 KAROLINA PLEITEZ Rn-Planishing Press Operator - 10/02/2020 12:02 EDT documented in this encounter Plan of Treatment Not on file documented as of this encounter Visit Diagnoses Not on filedocumented in this encounter
--- OUTSIDE RECORDS SUMMARY | 2024-10-17 13:14 | XMS_ITS | Encounter Summary ---
Author Organization [employer] ([place], [place], [place], [place]) Address [address] [place] [address] Care Team Providers Care Residential Living Assistant Name Role Phone Unavailable Primary Care Provider Unavailabl e Encounter Details Date Type Department Care Team (Late st Contact Info) Description 10/03/2020 Transcribed Document [facility] [place] [address] [place] [address] ProviderRadha MD [address] [place] [address] Social History Tobacco Use Types Packs/Day Years Used Date Smoking Tobacco: Never Assessed Comments Unknown Sex and Gender Information Value Date Recorded Sex Assigned at Not on file Legal Sex Female 7:21 PM CDT Gender Identity Not on file Sexual Orientation Not on file documented as of this encounter Miscellaneous Notes * Cerner Conversion Note - Historical ProviderMD - 10/03/2020 9:32 AM CDT Attempt to Treat, PT Entered On: 10/03/2020 10:03 EDT Performed On: 10/03/2020 9:32 EDT by KEEGAN GRIJALVA, PT Attempt to Treat Unable to Treat Due To : Patient Refusal, Patient Unavailable Inability to Treat Comment : Pt is currently on the bedpan and says, It will be awhile, you'll have to come back later . Alexsandra MEZA, is notified of this and that PT will attempt later if time allows, but that may not be possible, so PT will return tomorrow. Notification : Alexsandra MEZA, aware of pt being on bedpan. KEEGAN GRIJALVA, PT - 10/03/2020 10:01 EDT documented in this encounter Plan of Treatment Not on file documented as of this encounter Visit Diagnoses Not on filedocumented in this encounter
--- OUTSIDE RECORDS SUMMARY | 2024-10-17 13:14 | XMS_ITS | Encounter Summary ---
Author Organization [employer] ([place], [place], [place], [place]) Address [address] [place] [address] Care Team Providers Care Woven Label Designer Name Role Phone Unavailable Primary Care Provider Unavailabl e Encounter Details Date Type Department Care Team (Late st Contact Info) Description 10/02/2020 Transcribed Document [facility] [place] [address] [place] [address] ProviderRadha MD [address] [place] [address] Social History Tobacco Use Types Packs/Day Years Used Date Smoking Tobacco: Never Assessed Comments Unknown Sex and Gender Information Value Date Recorded Sex Assigned at Not on file Legal Sex Female 7:21 PM CDT Gender Identity Not on file Sexual Orientation Not on file documented as of this encounter Miscellaneous Notes * Cerner Conversion Note - Radha ProviderMD - 10/02/2020 5:00 AM CDT Chart Check - Review Order Profile Entered On: 10/02/2020 4:28 EDT Performed On: 10/02/2020 5:00 EDT by Natasha Sweeney RN Chart Check Powerplans Initiated/Discontinued as Appropriate : Yes All Active Orders Reviewed : Yes Natasha Sweeney RN - 10/02/2020 4:28 EDT Electronically signed by Angela [facility] Conversion Breed To Wean Production Technician Cerner at 08/02/2022 6:27 PM CDT documented in this encounter Plan of Treatment Not on file documented as of this encounter Visit Diagnoses Not on filedocumented in this encounter
--- OUTSIDE RECORDS SUMMARY | 2024-10-17 13:14 | XMS_ITS | Encounter Summary ---
Author Organization [employer] ([place], [place], [place], [place]) Address [address] [place] [address] Care Team Providers Care Route Manager Name Role Phone Unavailable Primary Care Provider Unavailabl e Encounter Details Date Type Department Care Team (Late st Contact Info) Description 10/04/2020 Transcribed Document [facility] [place] [address] [place] [address] ProviderRadha MD [address] [place] [address] Social History Tobacco Use Types Packs/Day Years Used Date Smoking Tobacco: Never Assessed Comments Unknown Sex and Gender Information Value Date Recorded Sex Assigned at Not on file Legal Sex Female 7:21 PM CDT Gender Identity Not on file Sexual Orientation Not on file documented as of this encounter Miscellaneous Notes * Cerner Conversion Note - Historical ProviderMD - 10/04/2020 5:00 AM CDT Chart Check - Review Order Profile Entered On: 10/04/2020 5:06 EDT Performed On: 10/04/2020 5:00 EDT by Desire Verduzco Chart Check Powerplans Initiated/Discontinued as Appropriate : Yes All Active Orders Reviewed : Yes Desire Verduzco - 10/04/2020 5:06 EDT Electronically signed by Angela [facility] Conversion Principal Data Architect Cerner at 08/02/2022 6:29 PM CDT documented in this encounter Plan of Treatment Not on file documented as of this encounter Visit Diagnoses Not on filedocumented in this encounter
--- OUTSIDE RECORDS SUMMARY | 2024-10-17 13:14 | XMS_ITS | Encounter Summary ---
Author Organization [employer] ([place], [place], [place], [place]) Address [address] [place] [address] Care Team Providers Care Forensic Technician Name Role Phone Unavailable Primary Care Provider Unavailabl e Encounter Details Date Type Department Care Team (Late st Contact Info) Description 10/12/2020 Transcribed Document [facility] Family Medicine [address] [place] [address] ProviderRadha MD [address] [place] [address] Social History Tobacco Use Types Packs/Day Years Used Date Smoking Tobacco: Never Assessed Comments Unknown Sex and Gender Information Value Date Recorded Sex Assigned at Not on file Legal Sex Female 7:21 PM CDT Gender Identity Not on file Sexual Orientation Not on file documented as of this encounter Miscellaneous Notes * Cerner Conversion Note - Radha Reed MD - 10/12/2020 12:16 PM CDT On Going Discharge Planning Entered On: 10/12/2020 12:17 EDT Performed On: 10/12/2020 12:16 EDT by BHARGAVI MEYER, RN-Dipper OperatorAssembler Body Progress Note Discharge Arrangements : Patient Post-Acute Information Patient Name: LUH BOSCH Gender: Female : [birth year] Age: 59 Years No Post-Acute Placement(s) Listed No Post-Acute Service(s) Listed No [place] Referral(s) Listed Discharge Options Discussed with Patient : Acute rehabilitation, Discharge transportation, DME, Home Health, Short term rehabilitation Barriers to Discharge Identified : No prison bed available Barriers to Discharge Unresolved : No prison bed available, Other: precert Is the Patient Meeting Medical Necessity : No Did you Document Avoidable Days? : Yes Did you Attend Multidisciplinary Rounds? : Yes BHARGAVI MEYER, SUSANA-Dipper Operator - 10/12/2020 12:16 EDT Narrative Progress Note Narrative Progress Note : ELOS 3, hospital day 912 RRS 59 Rebecca updated per radha. For hopeful precert initiated at [facility]. EMS arranged for 10/14@1100, trip # [id number]. Bariatric bed and bariatric stretcher requested at [facility] and ems. Historical Progress Note : ELOS 3, hospital day 8, RRS 59, she needs a laboratory secretary care skilled bed, referrals sent to Radha mcarthur with [facility] assessing for bariatric bed at [facility] or [facility] LIAM COWAN Rn-Dipper Operator - 10/08/20 17:55:50 Received call from [facility] [phone] advising CM their facility is unable to meet pt's needs - r/t C-Diff; weight - non-ambulatory w/ bed activity; pt on transfer to [facility] - notified CM. KAROLINA PLEITEZ Rn-Dipper Operator - 10/07/20 11:01:00 HD#6; ELOS 3; MRR; BOOST 7 - GenEdema/Anasarca; received voice mail from [facility] - DON requesting additional clinical information - faxed this am; awaiting return call to confirm precert has been initiated. KAROLINA PLEITEZ Rn-Dipper Operator - 10/07/20 07:45:25 Dr. Pemberton tells CM pt is ready to transition and is appropriate for precert to be initiated with short-term rehab; spoke with pt and she is in agreement to go to [facility]. Contacted [facility] and she will initiate the precert and confirm with Dr. Whittaker. KAROLINA PLEITEZ Rn-Dipper Operator - 10/06/20 13:57:22 HD#5; ELOS 3; MRR; BOOST 7 - Generalized Edema/Anasarca = 02/2L; Vancomycin/Midodrine; declined to stand w/therapy - will need rehab r/t ongoing weakness; discussion w/pt's family about need for rehab - possible long-term placement if unable to progress; [facility] interested to discuss with ; [facility] unable to meet pt's needs; continue to follow. KAROLINA PLEITEZ Rn-Dipper Operator - 10/06/20 08:58:40 Received call from pt's daughter Leslie Og and she requested referrals be sent to [facility] in [place], [place] ([employer]) and [facility] in [place], [place] ([employer]). KAROLINA PLEITEZ Rn-Dipper Operator - 10/05/20 15:28:00 HD#4; ELOS 3; MRR; BOOST 7 - GenEdema/Hypernatremia/Anasarca - 02=2L; B/P 105/58; PO Vancomycin; Midodrine 10 mg TID; lytes to be replaced; Nephrology has signed off; pt MaxAx2 w/therapy; updates sent thru [facility] to [facility] and left another message for f/u to confirm pt may return and anticipated turn around time for precert; DCP return for rehab; will likely require ambulance for transport; pt on transfer out of [facility]. KAROLINA PLEITEZ Rn-Dipper Operator - 10/05/20 13:37:58 HD#4; ELOS 3; MRR; BOOST 7 - GenEdema/Hypernatremia/Anasarca - 02=2L; B/P 105/58; PO Vancomycin; Midodrine 10 mg TID; lytes to be replaced; Nephrology has signed off; pt MaxAx2 w/therapy; updates sent thru [facility] to [facility] and left another message for f/u to confirm pt may return and anticipated turn around time for precert; DCP return for rehab; will likely require ambulance for transport; pt on transfer out of [facility]. Spoke with [facility] and advised they will be unable to meet patient's needs; referral cancelled. sophia Spoke with pt's son Kishore and advised pt may require long-term care placement; he will discuss options with his sister and advise ; initial referrals sent thru [facility] to [facility]. KAROLINA PLEITEZ Rn-Dipper Operator - 10/05/20 13:54:46 HD#1; ELOS 3; MRR; BOOST 7 - GenEdema/Hypernatremia/Anasarca - improving - 02=2L; Levo gtt; Midodrine; IV Bumex; Nephrology - 24 hr urine to eval for nephrotic syndrome; +CDiff; Rocephin/Doxy/Vanc; ltd work w/therapy - refusing OOB and knee/hip AROM; pt needs to be encouraged; DCP rehab - left message for [facility] [phone] to confirm receipt of referral; pt will need precert. KAROLINA PLEITEZ, Rn-Dipper Operator - 10/02/20 12:06:37 HD#1; ELOS 3; MRR; BOOST 7 - Transfer from [facility] for Generalized Edema; Nephrology consult; DV=[id number]; RA; Doxycycline/Rocephin; met w/pt's adult children Leslie Og and Kishore Bosch ([phone]) who states DCP will be return to [facility] for ongoing rehab; explained pt will require a precert; updates clinicals sent to [facility] and voicemail left for intake [phone]; [phone]. KAROLINA PLEITEZ, Rn-Dipper Operator - 10/01/20 14:32:34 BHARGAVI MEYER, RN-Dipper Operator - 10/12/2020 12:16 EDT documented in this encounter Plan of Treatment Not on file documented as of this encounter Visit Diagnoses Not on filedocumented in this encounter
--- OUTSIDE RECORDS SUMMARY | 2024-10-17 13:14 | XMS_ITS | Encounter Summary ---
Author Organization [employer] ([place], [place], [place], [place]) Address [address] [place] [address] Care Team Providers Care Fitting Supervisor Name Role Phone Unavailable Primary Care Provider Unavailabl e Encounter Details Date Type Department Care Team (Late st Contact Info) Description 10/03/2020 Transcribed Document [facility] Radiology [address] [place] [address] Malu Pembetron MD [address] [place], [place] [id number] Social History Tobacco Use Types Packs/Day Years Used Date Smoking Tobacco: Never Assessed Comments Unknown Sex and Gender Information Value Date Recorded Sex Assigned at Not on file Legal Sex Female 7:21 PM CDT Gender Identity Not on file Sexual Orientation Not on file documented as of this encounter Miscellaneous Notes * Cerner Conversion Note - Malu Pemberton MD - 10/03/2020 12:00 PM EDT Patient: LUH BOSCH Age: 59 years Sex: Female : 1960 Associated Diagnoses: None Author: MALU PEMBERTON MD-INT Basic Information Date of encounter 10/03/20 Patient is awake and alert Still on low dose pressors No headache or dizziness Having good urine output (has been on daily diuretic) Physical Examination VS/Measurements Vitals Signs (last 24 hrs) Last Charted Minimum Maximum Temp 98.2 (OCT 03 12:00) 96.9 (OCT 03 00:00) 99.4 (OCT 02 20:00) Mon HR 94 (OCT 03 12:00) 89 (OCT 03 05:00) 112 (OCT 03 07:45) Resp Rate H 26 (OCT 03 12:00) 14 (OCT 03 05:00) H 41 (OCT 03 09:15) SBP 101 (OCT 03 12:00) 93 (OCT 03 08:00) 122 (OCT 02 23:00) DBP 62 (OCT 03 12:00) L 53 (OCT 03 08:00) 69 (OCT 02 16:00) MAP 76 (OCT 03 12:00) 68 (OCT 03 08:00) 87 (OCT 02 23:00) SpO2 L 93 (OCT 03 12:00) L 87 (OCT 02 16:00) 97 (OCT 03 05:00) General: Alert and oriented, No acute distress, morbid obesity generalized anasarca. Eye: Pupils are equal, round and reactive to light, Extraocular movements are intact. HENT: Normocephalic, Oral mucosa is moist. Respiratory: Breath sounds are equal, Symmetrical chest wall expansion, diminished, shallow. Cardiovascular: Normal rate, Regular rhythm, distant. Gastrointestinal: Soft, Non-tender. Integumentary: Warm, Dry, peripheral edema. Neurologic: Alert, Oriented, No focal deficits. Psychiatric: Cooperative, Appropriate mood & affect. Review / Management Labs reviewed. Impression and Plan Distributive shock: due to 3rd spacing/lack of intravascular solute/oncotic pressure/wean pressors/on midodrine/add albumin today. ECHO with normal EF. Hol doff diurectics (discussed with nephrology) C.diff enteritis: increase oral vanc dosing started overnight to 250 qid. simplify abx as able Hyponatremia, gross volume overload, anasarca -Na better and normalised Hypoalbuminemia with anasarca: evaluating for nephrotic syndrome; ordered the 24 hours protein severe protein calorie malnutrition: Patient admits to very restritive calorie diet. Add supplements. possible acute cystitis; may be contaminated; - urine with WBC clumps. UA noted, neff in place. on empiric rocephin; will add doxy to cover poss pulm pathogens, short course..... likely dc soon if neg c/s, in light of c diff Type 2 diabetes mellitus,with A1c at 6.2% Hyperlipidemia - resume statin Hypothyroidism - normal TSH, resume synthroid GERD - continue home PPI Morbid Obesity, complicating all aspects of care. BMI: 63.4 DVT prophylaxis: on lovenox Disposition:Hold diuretics/add albumin/simplify abx after final culture obtained. Discussed with patient, nephrology art consultant and nursing. PT as tolerated Time spent with above 30 minutes documented in this encounter Plan of Treatment Not on file documented as of this encounter Visit Diagnoses Not on filedocumented in this encounter
--- OUTSIDE RECORDS SUMMARY | 2024-10-17 13:14 | XMS_ITS | Clinical Summary ---
Author Organization [employer] ([place], [place], [place], [place]) Address [address] [place] [address] Care Team Providers Care Public Information Director Name Role Phone Unavailable Primary Care Provider Unavailabl e Social History Tobacco Use Types Packs/Day Years Used Date Smoking Tobacco: Never Assessed Comments Unknown Sex and Gender Information Value Date Recorded Sex Assigned at Not on file Legal Sex Female 7:21 PM CDT Gender Identity Not on file Sexual Orientation Not on file Plan of Treatment Not on file
--- OUTSIDE RECORDS SUMMARY | 2024-10-17 13:14 | XMS_ITS | Encounter Summary ---
Author Organization [employer] ([place], [place], [place], [place]) Address [address] [place] [address] Care Team Providers Care Deliverer Pharmacy Name Role Phone Unavailable Primary Care Provider Unavailabl e Encounter Details Date Type Department Care Team (Late st Contact Info) Description 10/04/2020 Transcribed Document [facility] Family Medicine [address] [place] [address] ProviderRadha MD [address] [place] [address] Social History Tobacco Use Types Packs/Day Years Used Date Smoking Tobacco: Never Assessed Comments Unknown Sex and Gender Information Value Date Recorded Sex Assigned at Not on file Legal Sex Female 7:21 PM CDT Gender Identity Not on file Sexual Orientation Not on file documented as of this encounter Miscellaneous Notes * Cerner Conversion Note - Radha ProviderMD - 10/04/2020 11:20 AM CDT Patient: LUH BOSCH Age: 59 Years Sex: Female : 1960 Subjective Na stable. Edema improved. Still requiring pressor support to mannitan BP Vital Signs T: 37.3 ??C TMIN: 36.7 ??C TMAX: 37.4 ??C HR: 90(Monitored) RR: 21 BP: 113/59 SpO2: 96% Oxygen Settings (Last) Oxygen Therapy Mode: Nasal cannula (10/04/20 08:10:00) Oxygen Flow Rate: 2 Liter/Min (10/04/20 08:10:00) Intake & Output Totals Last 24 Hours (7a-7a) Input Total: 1558.645 mL Output Total: 2700 mL Balance: -1141.355 mL Physical Exam GENERAL: The patient is [...] pedal edema. No cyanosis. Peripheral pulses palpable. SOCIAL WELFARE CLERK: No focal deficit noted grossly. Cranial nerves II through XII are intact. PSYCH: Appropriate mood and affect and cooperative. SKIN: Warm, dry, pink and intact. Assessment/Plan 1. Hyponatremia: Likely due to significant total body volume overload. Cortisol and TSH normal. Resolved with diuretics and albumin 2. Anasarca. Due to third spacing with severe hypoalbuminemia. 24hr urine protein 354 doesn't have nephrotic syndrome 3. Low albumin level. 4. Hypotension. now on pressors and midodrine Recs Workup negative for proteinuria on spot and 24hr urine protein Continue midodrine 10 mg TID. Supplement Elyte per the ICU protocol Will sign off at this stage. Please call with any questions or concerns VTE Prophylaxis - Medical Enoxaparin 40 mg, SubCutaneous, Inj, [id number], Routine, Start 09/30/20 12:00:00 EDT, 09/30/20 11:44:00 EDT (KIERSTEN COLEY DO) Sequential Compression Device Start: 09/29/20 23:53:00 EDT, Bilateral, Length: Knee High, While patient is in bed, Continuous Order (JADE CURIEL) Medications calcium gluconate calcium gluconate + Sodium Chloride [...] Daily Lovenox, 40 mg= 0.4 mL, SubCutaneous, [id number] magnesium sulfate, 2 Gram= 50 mL, IV [...] Test Name Test Result Date/Time Sodium Level 139 mmol/L 10/04/2020 04:07 EDT Potassium Level 3.4 mmol/L (Low) 10/04/2020 04:07 EDT Chloride Level 104 mmol/L 10/04/2020 04:07 EDT Carbon Dioxide Level 29 mmol/L 10/04/2020 04:07 EDT Anion Gap 9 10/04/2020 04:07 EDT Glucose Level 112 mg/dL (High) 10/04/2020 04:07 EDT Blood Urea Nitrogen 39 mg/dL (High) 10/04/2020 04:07 EDT Creatinine Level 0.50 mg/dL (Low) 10/04/2020 04:07 EDT eGFR >60 mL/min/1.73m2 10/04/2020 04:07 EDT eGFR NonAfrican >60 mL/min/1.73m2 10/04/2020 04:07 EDT Bun/Creatinine 78.0 (High) 10/04/2020 04:07 EDT Calcium Level 8.2 mg/dL (Low) 10/04/2020 04:07 EDT Magnesium Level 1.5 mg/dL 10/04/2020 04:07 EDT Device Comment 1 Protocols Followed 10/04/2020 06:26 EDT Device Comment 1 Protocols Followed 10/03/2020 21:49 EDT Glucose POC2 95 mg/dL 10/04/2020 06:26 EDT Glucose POC2 134 mg/dL (High) 10/03/2020 21:49 EDT Glucose POC2 128 mg/dL (High) 10/03/2020 15:13 EDT WBC 8.8 K/uL 10/04/2020 04:07 EDT RBC 3.08 Million/uL (Low) 10/04/2020 04:07 EDT Hgb 8.8 g/dL (Low) 10/04/2020 04:07 EDT Hct 26.9 % (Low) 10/04/2020 04:07 EDT MCV 87.3 fL 10/04/2020 04:07 EDT MCH 28.6 pg 10/04/2020 04:07 EDT MCHC 32.7 Gram/dL 10/04/2020 04:07 EDT Platelet Count 315 K/uL 10/04/2020 04:07 EDT MPV 8.9 fL (Low) 10/04/2020 04:07 EDT RDW 20.0 % (High) 10/04/2020 04:07 EDT Neut % 86.1 % (High) 10/04/2020 04:07 EDT Neut # 7.56 K/uL (High) 10/04/2020 04:07 EDT Lymph % 5.5 % (Low) 10/04/2020 04:07 EDT Lymph # 0.48 x10(3)/uL (Low) 10/04/2020 04:07 EDT Sierra % 3.9 % 10/04/2020 04:07 EDT Sierra # 0.34 K/uL 10/04/2020 04:07 EDT Eos % 2.2 % 10/04/2020 04:07 EDT Eos # 0.19 x10(3)/uL 10/04/2020 04:07 EDT Baso % 1.0 % 10/04/2020 04:07 EDT Baso # 0.09 x10(3)/uL 10/04/2020 04:07 EDT nRBC 0.020 (High) 10/04/2020 04:07 EDT Slide Review No 10/04/2020 04:07 EDT IG# 0.11 x10(3)/uL (High) 10/04/2020 04:07 EDT IG% 1.30 % (High) 10/04/2020 04:07 EDT documented in this encounter Plan of Treatment Not on file documented as of this encounter Visit Diagnoses Not on filedocumented in this encounter
--- OUTSIDE RECORDS SUMMARY | 2024-10-17 13:14 | XMS_ITS | Encounter Summary ---
Author Organization [employer] ([place], [place], [place], [place]) Address [address] [place] [address] Care Team Providers Care Audiovisual Librarian Name Role Phone Unavailable Primary Care Provider Unavailabl e Encounter Details Date Type Department Care Team (Late st Contact Info) Description 10/13/2020 Transcribed Document [facility] [place] [address] [place] [address] ProviderRadha MD [address] [place] [address] Social History Tobacco Use Types Packs/Day Years Used Date Smoking Tobacco: Never Assessed Comments Unknown Sex and Gender Information Value Date Recorded Sex Assigned at Not on file Legal Sex Female 7:21 PM CDT Gender Identity Not on file Sexual Orientation Not on file documented as of this encounter Miscellaneous Notes * Cerner Conversion Note - Historical ProviderMD - 10/13/2020 1:15 PM CDT Discharge Summary, PT Entered On: 10/13/2020 13:17 EDT Performed On: 10/13/2020 13:15 EDT by DONNY HALE PT Discharge Summary Discharge Summary Provider Notified : Physical Therapy Reason for Discharge : Discharged from hospital Discharged to, Therapy : Unit, residential Discharge Summary Comment, PT : last seen 10/11 for bed mobility and noted to be MAX ASSIST for rolling and scooting no goals met DONNY HALE, PT - 10/13/2020 13:15 EDT Short Term Goals Mobility/Bed Mobility ST[facility] PT Grid Goal #1 Goal #2 Activity : Supine to sit Assist : Assist, maximal Date to Meet : 10/07/2020 EDT Goal Status : Not met Comment : SEE GOALS BELOW DONNY HALE, PT - 10/13/2020 13:15 EDT DONNY HALE, PT - 10/13/2020 13:15 EDT Other PT STG Grid Goal #1 Goal #2 Goal : Pt will maintain static sit EOB up to 5 min with supervision Pt will tolerate AROM exercises with BLE's x 10 reps each Date to Meet : 10/07/2020 EDT 10/07/2020 EDT Goal Status : Goal met Goal met Date Met : 10/04/2020 EDT 10/04/2020 EDT DONNY HALE, PT - 10/13/2020 13:15 EDT DONNY HALE, PT - 10/13/2020 13:15 EDT Environmental Sampling Technician Goals Mobility/Bed Mobility LTG PT Grid Goal #1 Goal #2 Activity : Supine to sit Sit to stand Assist : Assist, moderate Assist, moderate Equipment : Other: adenike RWx Date to Meet : 10/14/2020 EDT 10/14/2020 EDT Goal Status : Not met Not met DONNY HALE, PT - 10/13/2020 13:15 EDT DONNY HALE, PT - 10/13/2020 13:15 EDT Transfer LTG Grid Goal #1 Destination : Chair, with arms Type : Stand Pivot Sit Assist : Assist, moderate Date to Meet : 10/14/2020 EDT Goal Status : Not met DONNY HALE, PT - 10/13/2020 13:15 EDT Ambulation LTG Grid Goal #1 Device : Other: adenike RWx Distance : 20 ft Assist : Assist, moderate Date to Meet : 10/14/2020 EDT Goal Status : Not met DONNY HALE, PT - 10/13/2020 13:15 EDT documented in this encounter Plan of Treatment Not on file documented as of this encounter Visit Diagnoses Not on filedocumented in this encounter
--- OUTSIDE RECORDS SUMMARY | 2024-10-17 13:14 | XMS_ITS | Encounter Summary ---
Author Organization [employer] ([place], [place], [place], [place]) Address [address] [place] [address] Care Team Providers Care Sandblasting Supervisor Name Role Phone Unavailable Primary Care Provider Unavailabl e Encounter Details Date Type Department Care Team (Late st Contact Info) Description 10/06/2020 Transcribed Document [facility] Radiology [address] [place] [address] Malu Pemberton MD [address] [place] [address] [place] [id number] Social History Tobacco Use Types Packs/Day Years Used Date Smoking Tobacco: Never Assessed Comments Unknown Sex and Gender Information Value Date Recorded Sex Assigned at Not on file Legal Sex Female 7:21 PM CDT Gender Identity Not on file Sexual Orientation Not on file documented as of this encounter Miscellaneous Notes * Cerner Conversion Note - Malu Pemberton MD - 10/06/2020 1:00 PM EDT Patient: LUH BOSCH Age: 59 years Sex: Female : 1960 Associated Diagnoses: None Author: MALU PEMBERTON MD-INT Basic Information Date of encounter 10/06/20 Patient is awake and alert BP doing better Still awaiting a room for transfer out Had 2 BM this am. Physical Examination VS/Measurements Vitals Signs (last 24 hrs) Last Charted Minimum Maximum Temp 98.7 (OCT 06 12:00) 98.7 (OCT 06 12:00) 98.3 (OCT 05 16:00) Mon HR 88 (OCT 06 12:00) 86 (OCT 05 17:00) 101 (OCT 05 15:00) Resp Rate H 21 (OCT 06 12:00) 16 (OCT 06 01:00) H 38 (OCT 05:) SBP 117 (OCT 06 12:00) L 82 (OCT 06 00:00) 134 (OCT 06 11:00) DBP 64 (OCT 06 12:00) L 50 (OCT 05 23:00) 73 (OCT 06 11:00) MAP 83 (OCT 06 12:00) 63 (OCT 06 00:00) 96 (OCT 06 11:00) SpO2 96 (OCT 06 12:00) L 89 (OCT 06 07:00) 97 (OCT 05 16:00) General: Alert and oriented, No acute distress, [...] nephrology) and use it prn, and on IV albumin and midodrine and weaned off pressors. C.diff enteritis: increase oral vanc dosing started overnight to 250 qid. Complete the course. Add probiotic Hyponatremia, gross volume overload, anasarca -Na [...] care. BMI: 63.4 DVT prophylaxis: on lovenox Disposition:Pending bed for transfer out of unit Discussed with patient, and nursing and CM/continue PT as tolerated. She is medically ready but no rehab bed offers yet. Time spent with above 25 minutes documented in this encounter Plan of Treatment Not on file documented as of this encounter Visit Diagnoses Not on filedocumented in this encounter
--- OUTSIDE RECORDS SUMMARY | 2024-10-17 13:14 | XMS_ITS | Encounter Summary ---
Author Organization [employer] ([place], [place], [place], [place]) Address [address] [place] [address] Care Team Providers Care Massage Therapist Name Role Phone Unavailable Primary Care Provider Unavailabl e Encounter Details Date Type Department Care Team (Late st Contact Info) Description 10/06/2020 Transcribed Document [facility] [place] Family Medicine [address] [place] [address] ProviderRahda MD [address] [place] [address] Social History Tobacco Use Types Packs/Day Years Used Date Smoking Tobacco: Never Assessed Comments Unknown Sex and Gender Information Value Date Recorded Sex Assigned at Not on file Legal Sex Female 7:21 PM CDT Gender Identity Not on file Sexual Orientation Not on file documented as of this encounter Miscellaneous Notes * Cerner Conversion Note - Radha ProviderMD - 10/06/2020 1:55 PM CDT On Going Discharge Planning Entered On: 10/06/2020 13:57 EDT Performed On: 10/06/2020 13:55 EDT by KAROLINA PLEITEZ Rn-Crackling Press OperatorOil Field Equipment Mechanic Supervisor Progress Note Discharge Arrangements : Patient Post-Acute Information Patient Name: LUH GLASS Gender: Female : [birth year] Age: 59 Years Ruth Referral(s): Service: Organization: Business Address: Phone Number: [facility] [address] [place], [address] Discharge Options Discussed with Patient : Acute rehabilitation, Discharge transportation, DME, Home Health, Short term rehabilitation Barriers to Discharge Identified : Clinical Condition of Patient, Follow-Up appointments needed Barriers to Discharge Unresolved : Clinical Condition of Patient KAROLINA PLEITEZ Rn-Crackling Press Operator - 10/06/2020 13:55 EDT Narrative Progress Note Narrative Progress Note : Dr. Nilay tells CM pt is ready to transition and is appropriate for precert to be initiated with short-term rehab; spoke with pt and she is in agreement to go to [facility]. Contacted [facility] and she will initiate the precert and confirm with Dr. Whittaker. Historical Progress Note : HD#5; ELOS 3; MRR; BOOST 7 - Generalized Edema/Anasarca = 02/2L; Vancomycin/Midodrine; declined to stand w/therapy - will need rehab r/t ongoing weakness; discussion w/pt's family about need for rehab - possible long-term placement if unable to progress; [facility] interested to discuss with MD; [place] unable to meet pt's needs; continue to follow. KAROLINA PLEITEZ Rn-Crackling Press Operator - 10/06/20 08:58:40 Received call from pt's daughter Leslie Og and she requested referrals be sent to [facility] in [place], [place] ([employer]) and [facility] in [place], [place] ([employer]). KAROLINA PLEITEZ Rn-Crackling Press Operator - 10/05/20 15:28:00 HD#4; ELOS 3; MRR; BOOST 7 - GenEdema/Hypernatremia/Anasarca - 02=2L; B/P 105/58; PO Vancomycin; Midodrine 10 mg TID; lytes to be replaced; Nephrology has signed off; pt MaxAx2 w/therapy; updates sent thru [facility] to [facility] and left another message for f/u to confirm pt may return and anticipated turn around time for precert; DCP return for rehab; will likely require ambulance for transport; pt on transfer out of [facility]. KAROLINA PLEITEZ Rn-Crackling Press Operator - 10/05/20 13:37:58 HD#4; ELOS 3; MRR; BOOST 7 - GenEdema/Hypernatremia/Anasarca - 02=2L; B/P 105/58; PO Vancomycin; Midodrine 10 mg TID; lytes to be replaced; Nephrology has signed off; pt MaxAx2 w/therapy; updates sent thru [employer] to [facility] and left another message for f/u to confirm pt may return and anticipated turn around time for precert; DCP return for rehab; will likely require ambulance for transport; pt on transfer out of [facility]. Spoke with [facility] and advised they will be unable to meet patient's needs; referral cancelled. sophia Spoke with pt's son Kishore and advised pt may require long-term care placement; he will discuss options with his sister and advise CM; initial referrals sent thru [facility] to [place]; [facility]. KAROLINA PLEITEZ, Rn-Crackling Press Operator - 10/05/20 13:54:46 HD#1; ELOS 3; MRR; BOOST 7 - GenEdema/Hypernatremia/Anasarca - improving - 02=2L; Levo gtt; Midodrine; IV Bumex; Nephrology - 24 hr urine to eval for nephrotic syndrome; +CDiff; Rocephin/Doxy/Vanc; ltd work w/therapy - refusing OOB and knee/hip AROM; pt needs to be encouraged; DCP rehab - left message for [facility] [phone] to confirm receipt of referral; pt will need precert. KAROLINA PLEITEZ Rn-Crackling Press Operator - 10/02/20 12:06:37 HD#1; ELOS 3; MRR; BOOST 7 - Transfer from [facility] for Generalized Edema; Nephrology consult; RO=269; RA; Doxycycline/Rocephin; met w/pt's adult children Leslie Og and Kishore Glass ([phone]) who states DCP will be return to [facility] for ongoing rehab; explained pt will require a precert; [facility] [phone]; [phone]. KAROLINA PLEITEZ Rn-Crackling Press Operator - 10/01/20 14:32:34 KAROLINA PLEITEZ Rn-Crackling Press Operator - 10/06/2020 13:55 EDT Electronically signed by Galen Miller Conversion Customer Service Security Officer Sandra at 08/02/2022 6:29 PM CDT documented in this encounter Plan of Treatment Not on file documented as of this encounter Visit Diagnoses Not on filedocumented in this encounter
--- OUTSIDE RECORDS SUMMARY | 2024-10-17 13:14 | XMS_ITS | Encounter Summary ---
Author Organization [employer] ([place], [place], [place], [place]) Address [address] [place] [address] Care Team Providers Care Comfort Filler Name Role Phone Unavailable Primary Care Provider Derrell rose Encounter Details Date Type Department Care Team (Late st Contact Info) Description 10/02/2020 Transcribed Document [facility] Family Medicine [address] [place] [address] ProviderRadha MD [address] [place] [address] Social History Tobacco Use Types Packs/Day Years Used Date Smoking Tobacco: Never Assessed Comments Unknown Sex and Gender Information Value Date Recorded Sex Assigned at Not on file Legal Sex Female 7:21 PM CDT Gender Identity Not on file Sexual Orientation Not on file documented as of this encounter Miscellaneous Notes * Cerner Conversion Note - Historical ProviderMD - 10/02/2020 1:40 PM CDT Patient: LUH BOSCH Age: 59 years Sex: Female : 1960 Associated Diagnoses: None Author: KIERSTEN COLEY DO Basic Information pt seen and examined 10/02 having some loose stools, but less so far today found to be c diff + no abd cramping except for occasional sharp pains lateral upper right abd eating very well Review of Systems Constitutional: No fever, No [...] Nebulized Inhalation, RT_Q6H, PRN: Shortness of Breath Isopto Tears: 1 Drop, Eyes Both, QID Lantus: 10 Units, SubCutaneous, Daily Lipitor: 40 mg, Oral, Daily Lovenox: 40 mg, SubCutaneous, [id number] MiraLax: 17 Gram, Oral, Daily, PRN: Constipation NORepinephrine injection 8 mg + NaCl 0.9% for drip 250 mL: Titrate, IntraVENous Phenergan: 6.25 mg, IntraVENous, Q6H, PRN: Nausea Rocephin: 1 Gram, 100 mL/Hr, IV Piggyback, [id number] Roxicodone: 5 mg, Oral, Q4H, PRN: Pain [...] chloride 20 mEq oral tablet, extended release: 40 mEq, 2 Tab, Oral, BID potassium chloride 20 mEq oral tablet, extended [...] History of obstructive sleep apnea / [id number] [id number] / Confirmed, Active Problems (6) Diabetes mellitus GERD (gastroesophageal reflux disease) History of obstructive sleep apnea HLD (hyperlipidemia) Hypothyroidism Morbid obesity Physical Examination VS/Measurements Vitals Signs (last 24 hrs) Last Charted Minimum Maximum Temp 98.6 (OCT 02 12:00) 97.9 (OCT 02 04:00) 98.5 (OCT 01 16:00) Mon HR 110 (OCT 02 13:00) 91 (OCT 02 07:00) 110 (OCT 01 16:00) Resp Rate H 35 (OCT 02 13:00) 17 (OCT 01 17:00) H 41 (OCT 01 16:00) SBP 102 (OCT 02 13:00) L 84 (OCT 02 05:00) 110 (OCT 01 22:00) DBP L 54 (OCT 02 13:00) L 47 (OCT 02 05:00) 66 (OCT 02 11:00) MAP 72 (OCT 02 13:00) 63 (OCT 02 05:00) 79 (OCT 01 18:00) SpO2 L 90 (OCT 02 13:00) L 90 (OCT 02 13:00) 96 (OCT 02 07:00) General: Alert and oriented, No acute distress, [...] review: Labs (Last four charted values) WBC 10.4 (CLAUDIA 18) H 11.0 (CLAUDIA 16) H 11.4 (CLAUDIA 15) HB L 9.5 (CLAUDIA 18) 11.8 (CLAUDIA 16) 12.6 (CLAUDIA 15) HCT L 28.2 (CLAUDIA 18) 35.0 (CLAUDIA 16) 38.8 (CLAUDIA 15) Plt H 443 (CLAUDIA 18) H 468 (CLAUDIA 16) 277 (CLAUDIA 15) Na L 133 (CLAUDIA 18) L 131 (CLAUDIA 17) L 127 (CLAUDIA 16) L 126 (CLAUDIA 15) K L 3.2 (CLAUDIA 18) 3.7 (CLAUDIA 17) 4.0 (CLAUDIA 16) 3.9 (CLAUDIA 15) Cl L 98 (CLAUDIA 18) L 97 (CLAUDIA 17) L 95 (CLAUDIA 16) L 95 (CLAUDIA 15) CO2 25 (CLAUDIA 18) 24 (CLAUDIA 17) 21 (CLAUDIA 16) 22 (CLAUDIA 15) BUN H 50 (CLAUDIA 18) H 58 (CLAUDIA 17) H 55 (CLAUDIA 16) H 57 (CLAUDIA 15) Cr 0.70 (CLAUDIA 18) 0.80 (CLAUDIA 17) 0.80 (CLAUDIA 16) 0.80 (CLAUDIA 15) Glu R 78 (CLAUDIA 18) H 166 (CLAUDIA 17) H 230 (CLAUDIA 16) H 246 (CLAUDIA 15) Ca L 8.1 (CLAUDIA 18) L 8.0 (CLAUDIA 17) L 7.8 (CLAUDIA [...] 16) L 4.6 (CLAUDIA 15) ALB L 2.0 (CLAUDIA 18) L 1.0 (CLAUDIA 16) L 0.9 [...] diuresis, ongoing lactic acidosis evaluating for nephrotic syndrome; ordered the 24 hours protein distributive shock due to 3rd spacing/lack of [...] neg c/s, in light of c diff c diff enteritis increase oral vanc dosing started overnight to 250 qid Type 2 diabetes mellitus, unknown control - check A1C, added lantus and mealtime scheduled insulin; no changes today Hyperlipidemia - resume statin Hypothyroidism - normal TSH, resume synthroid GERD - continue home PPI Morbid Obesity, complicating all aspects of care. BMI: 63.4 needs PT.OT echo ok mamta rn cct 33mins Electronically signed by Angela, [facility] Conversion Business Systems Technician Cerner at 08/02/2022 6:16 PM CDT documented in this encounter Plan of Treatment Not on file documented as of this encounter Visit Diagnoses Not on filedocumented in this encounter
--- OUTSIDE RECORDS SUMMARY | 2024-10-17 13:14 | XMS_ITS | Encounter Summary ---
Author Organization [employer] ([place], [place], [place], [place]) Address [address] [place] [address] Care Team Providers Care Environmental Safety Specialist Name Role Phone Unavailable Primary Care Provider Unavailabl e Encounter Details Date Type Department Care Team (Late st Contact Info) Description 10/06/2020 Transcribed Document [facility] [place] [address] [place] [address] ProviderRadha MD [address] [place] [address] Social History Tobacco Use Types Packs/Day Years Used Date Smoking Tobacco: Never Assessed Comments Unknown Sex and Gender Information Value Date Recorded Sex Assigned at Not on file Legal Sex Female 7:21 PM CDT Gender Identity Not on file Sexual Orientation Not on file documented as of this encounter Miscellaneous Notes * Cerner Conversion Note - Radha Reed MD - 10/06/2020 8:55 AM CDT On Going Discharge Planning Entered On: 10/06/2020 8:58 EDT Performed On: 10/06/2020 8:55 EDT by KAROLINA PLEITEZ Rn-Nutrition HelperAutomobile Sales Representative Progress Note Discharge Arrangements : Patient Post-Acute [...] Discharge Unresolved : Clinical Condition of Patient Is the Patient Meeting Medical Necessity : Yes KAROLINA PLEITEZ Rn-Nutrition Helper - 10/06/2020 8:55 EDT Narrative Progress Note Narrative Progress Note : HD#5; ELOS 3; MRR; BOOST 7 - Generalized Edema/Anasarca = 02/2L; Vancomycin/Midodrine; declined to stand w/therapy - will need rehab r/t ongoing weakness; discussion w/pt's family about need for rehab - possible long-term placement if unable to progress; [place] interested to discuss with MD; [place] unable to meet pt's needs; continue to follow. Historical Progress Note : Received call from pt's daughter Leslie Og and she requested referrals be sent to [facility] in [place], [place] ([employer]) and [facility] in [place], [place] ([employer]). KAROLINA PLEITEZ Rn-Nutrition Helper - 10/05/20 15:28:00 HD#4; ELOS 3; MRR; BOOST 7 - GenEdema/Hypernatremia/Anasarca - 02=2L; B/P 105/58; PO Vancomycin; Midodrine 10 mg TID; lytes to be replaced; Nephrology has signed off; pt MaxAx2 w/therapy; updates sent thru [facility] to [place] and left another message for f/u to confirm pt may return and anticipated turn around time for precert; DCP return for rehab; will likely require ambulance for transport; pt on transfer out of [facility]. KAROLINA PLEITEZ Rn-Nutrition Helper - 10/05/20 13:37:58 HD#4; ELOS 3; MRR; BOOST 7 - GenEdema/Hypernatremia/Anasarca - 02=2L; B/P 105/58; PO Vancomycin; Midodrine 10 mg TID; lytes to be replaced; Nephrology has signed off; pt MaxAx2 w/therapy; updates sent thru [facility] to [place] and left another message for f/u to [...] CM; initial referrals sent thru [facility] to [facility]. KAROLINA PLEITEZ, Rn-Nutrition Helper - 10/05/20 13:54:46 HD#1; ELOS 3; MRR; BOOST 7 - GenEdema/Hypernatremia/Anasarca - improving - 02=2L; Levo gtt; Midodrine; IV Bumex; Nephrology - 24 hr urine to eval for nephrotic syndrome; +CDiff; Rocephin/Doxy/Vanc; ltd work w/therapy - refusing OOB and knee/hip AROM; pt needs to be encouraged; DCP rehab - left message for [place] [phone] to confirm receipt of referral; pt will need precert. KAROLINA PLEITEZ Rn-Nutrition Helper - 10/02/20 12:06:37 HD#1; ELOS 3; MRR; BOOST 7 - Transfer from [facility] for Generalized Edema; Nephrology consult; BE=726; RA; Doxycycline/Rocephin; met w/pt's adult children Leslie Og and Kishore Bosch ([phone]) who states DCP will be return to [place] for ongoing rehab; explained pt will require a precert; updates clinicals sent to [place] and [facility] left for intake [phone]; [phone]. KAROLINA PLEITEZ, Rn-Nutrition Helper - 10/01/20 14:32:34 KAROLINA PLEITEZ Rn-Nutrition Helper - 10/06/2020 8:55 EDT documented in this encounter Plan of Treatment Not on file documented as of this encounter Visit Diagnoses Not on filedocumented in this encounter
--- OUTSIDE RECORDS SUMMARY | 2024-10-17 13:14 | XMS_ITS | Encounter Summary ---
Author Organization [employer] ([place], [place], [place], [place]) Address [address] [place] [address] Care Team Providers Care Odd Job Laborer Name Role Phone Unavailable Primary Care Provider Unavailabl e Encounter Details Date Type Department Care Team (Late st Contact Info) Description 09/30/2020 Transcribed Document [facility] [place] Family Medicine [address] [place] [address] ProviderRadha MD [address] [place] [address] Social History Tobacco Use Types Packs/Day Years Used Date Smoking Tobacco: Never Assessed Comments Unknown Sex and Gender Information Value Date Recorded Sex Assigned at Not on file Legal Sex Female 7:21 PM CDT Gender Identity Not on file Sexual Orientation Not on file documented as of this encounter Miscellaneous Notes * Cerner Conversion Note - Radha ProviderMD - 09/30/2020 3:51 PM CDT Treatment Intervention, PT Entered On: 10/07/2020 13:02 EDT Performed On: 10/07/2020 9:20 EDT by JO-ANN MILES PTA General Information, PT Visit Type, PT : Treatment Note Patient Orders : Order Date Order Ordering 09/29/2020 23:53 PT Evaluation and Treatment Ordered By: AJDE CURIEL DO 09/30/2020 15:51 PT Additional Treatment Ordered By: MELO MOLINA, PT Active Diagnoses : No Qualifying Diagnoses Therapy Diagnosis, PT : impaired mobiltiy due to generalized weakness, pain and BLE edema Admission Date : 09/30/2020 13:11 Co-treated by, PT : Other: occupational therapist student Personal Devices : Personal Devices No Devices Recorded Assistive Devices : Assistive Devices No Devices Recorded Precautions in Place : Fall prevention measures Isolation Maintained : ContactTyree HELEN, PTA - 10/07/2020 12:32 EDT Functional Mobility Mobility Grid Bed Roll Left : Rehab Maximal assistance (Comment: x 2 [JO-ANN MILES [facility] 10/07/2020 12:32 EDT] ) Bed Roll Right : Rehab Maximal assistance (Comment: x 2 [JO-ANN MILES, [facility] 10/07/2020 12:32 EDT] ) Bed Scooting : Rehab Total assistance (Comment: x 2 [JO-ANN MILES, [facility] 10/07/2020 12:32 EDT] ) JO-ANN MILES [facility] 10/07/2020 12:32 EDT Gait Training/Assessment, PT Gait Assistance Level : Unable to assess/activity not appropriate Gait Training Comment : pt not agreeable to OOB today JO-ANN MILES [facility] 10/07/2020 12:32 EDT Cognitive Treatment, PT Orientation : Oriented x 4 JO-ANN MILES [facility] 10/07/2020 12:32 EDT Edu Topics Physical Therapy Education Grid Bed Mobility Training : Needs further teaching Gait Training : Needs further teaching Role of Physical Therapy : Verbalizes understanding Safety : Needs further teaching Transfer Training : Needs further teaching JO-ANN MILES [facility] 10/07/2020 12:32 EDT Indication Assesessment, PT Physical Therapy Indicated : Yes JO-ANN MILES [facility] 10/07/2020 12:32 EDT Plan of Care, PT PT Tx Plan/Goals Established w Patient : Yes JO-ANN MILES [facility] 10/07/2020 12:32 EDT Short Term Goals Mobility/Bed Mobility STG PT Grid Goal #1 Goal #2 Activity : Supine to sit Assist : Assist, maximal Date to Meet : 10/07/2020 EDT Goal Status : Progressing, continue Comment : SEE GOALS BELOW JO-ANN MILES [facility] 10/07/2020 12:32 EDT JO-ANN MILES [facility] 10/07/2020 12:32 EDT Other PT STG Grid Goal #1 Goal #2 Goal : Pt will maintain static sit EOB up to 5 min with supervision Pt will tolerate AROM exercises with BLE's x 10 reps each Date to Meet : 10/07/2020 EDT 10/07/2020 EDT Goal Status : Goal met Goal met Date Met : 10/04/2020 EDT 10/04/2020 EDT MILESJO-ANN, FUR MIXER - 10/07/2020 12:32 EDT JO-ANN MILES, FUR MIXER - 10/07/2020 12:32 EDT Fdc Goals Mobility/Bed Mobility LTG PT Grid Goal #1 Goal #2 Activity : Supine to sit Sit to stand Assist : Assist, moderate Assist, moderate Equipment : Other: adenike RWx Date to Meet : 10/14/2020 EDT 10/14/2020 EDT Goal Status : Progressing, continue Intial Goal MILESKALAEN, FUR MIXER - 10/07/2020 12:32 EDT GINGERKALAEN, ARTURO - 10/07/2020 12:32 EDT Transfer LTG Grid Goal #1 Destination : Chair, with arms Type : Stand Pivot Sit Assist : Assist, moderate Date to Meet : 10/14/2020 EDT Goal Status : Intial Goal JO-ANN MILES, FUR MIXER - 10/07/2020 12:32 EDT Ambulation LTG Grid Goal #1 Device : Other: [facility] RWx Distance : 20 ft Assist : Assist, moderate Date to Meet : 10/14/2020 EDT Goal Status : Intial Goal JO-ANN MILESARTURO - 10/07/2020 12:32 EDT Treatment Note Subjective Comment : pt agreeable to PTx, nsg cleared pt for PTx Additional Objective Information : pt initially requested to be placed on bedpan then would sit EOB, pt was rolled for placing bedpan, after pt was done she was again rolled for doffing bedpan and pericare was performed, pt reported she was too nauseous to attempt getting to EOB at this time, pt left with all needs within reach Assessment : pt limited by fatigue and nausea today, pt would benefit from short term rehab to increase endurance and decrease safety risk and caregiver burden Plan for Treatment : continue POC JO-ANN MILESARTURO - 10/07/2020 12:32 EDT Pain Assessment Pain Score During-Intervention : 6 Location : Legs, bilateral Pain Improved by : Medication, Relaxation, Repositioning Pain Comment : per nsg pt not due for pain meds at this time MILESJO-ANNARTURO - 10/07/2020 12:32 EDT Image 1 - Images currently included in the form version of this document have not been included in the text rendition version of the form. Anticipated Discharge Needs, OT/PT Anticipated Discharge to : Unit, rehabilitation Recommend Continued Therapy at Discharge : Yes JO-ANN MILES PTA - 10/07/2020 12:[address] [facility] FUR MIXER PT Ther Activities Ea 15 Min-FUR MIXER : 2 JO-ANN MILES PTA - 10/07/2020 12:32 EDT Electronically signed by [facility] Conversion Fireworks Display Specialist Cerner at 08/05/2022 9:06 AM CDT documented in this encounter Plan of Treatment Not on file documented as of this encounter Visit Diagnoses Not on filedocumented in this encounter
--- OUTSIDE RECORDS SUMMARY | 2024-10-17 13:14 | XMS_ITS | Encounter Summary ---
Author Organization [employer] ([place], [place], [place], [place]) Address [address] [place] [address] Care Team Providers Care Locks Inspector Name Role Phone Unavailable Primary Care Provider Unavailabl e Encounter Details Date Type Department Care Team (Late st Contact Info) Description 10/02/2020 Transcribed Document [facility] [place] Family Medicine [address] [place] [address] ProviderRadha MD [address] [place] [address] Social History Tobacco Use Types Packs/Day Years Used Date Smoking Tobacco: Never Assessed Comments Unknown Sex and Gender Information Value Date Recorded Sex Assigned at Not on file Legal Sex Female 7:21 PM CDT Gender Identity Not on file Sexual Orientation Not on file documented as of this encounter Miscellaneous Notes * Cerner Conversion Note - Radha ProviderMD - 10/02/2020 7:47 AM CDT UM Authorization Entered On: 10/02/2020 7:48 EDT Performed On: 10/02/2020 7:47 EDT by Verena Kimble, Clinical Asst Primary Insurance Authorization Authorization and Policy Numbers : Insurance 1 Health Plan: [employer] Policy Number: [id number] Authorization Number: Insurance 2 Health Plan: [place] Policy Number: [id number] Authorization Number: Insurance Primary Name : [employer] P[employer] Policy Number: [id number] Authorization Status-Primary : Notification only Reference Number-Primary : [id number] Authorization Number-Primary : [id number] Authorized Service Begin Date-Primary : 09/29/2020 EDT Authorization Comments-Primary : Authorized per email from Angel Poon RN. Historical Authorization Comments-Primary : Comment 1: SUBMITTED ON [employer]. PAYOR HAS ACCESS TO EMR (Daisy Davison Rn-Utilization Review 09/30/2020 13:24) Verena Kimble, Clinical Asst - 10/02/2020 7:47 EDT Electronically signed by [facility], [facility] Conversion Media Analytics Manager Cerner at 08/02/2022 6:09 PM CDT documented in this encounter Plan of Treatment Not on file documented as of this encounter Visit Diagnoses Not on filedocumented in this encounter
--- OUTSIDE RECORDS SUMMARY | 2024-10-17 13:14 | XMS_ITS | Encounter Summary ---
Author Organization [employer] ([place], [place], [place], [place]) Address [address] [place] [address] Care Team Providers Care Nut Steamer Name Role Phone Unavailable Primary Care Provider Unavailabl e Encounter Details Date Type Department Care Team (Late st Contact Info) Description 10/02/2020 Transcribed Document [facility] [address] [place] [address] ProviderRadha MD [address] [place] [address] Social History Tobacco Use Types Packs/Day Years Used Date Smoking Tobacco: Never Assessed Comments Unknown Sex and Gender Information Value Date Recorded Sex Assigned at Not on file Legal Sex Female 7:21 PM CDT Gender Identity Not on file Sexual Orientation Not on file documented as of this encounter Miscellaneous Notes * Cerner Conversion Note - Historical ProviderMD - 10/02/2020 10:47 AM CDT Clinical Dietitian Note Entered On: 10/02/2020 10:47 EDT Performed On: 10/02/2020 10:47 EDT by Mariam Cohen Dietitian Clinical Dietitian Note Clinical Dietitian Note : 10/02: spoke w/ RN; concerned about pt protein intake. Reports pt is mainly eating fruits and vegetables. RD spoke w/ pt and encouraged eating meat on trays and modifying meal orders prn. Pt willing to try lbou5yt BID. RD to add. Will f/up as scheduled. Mariam Cohen Dietitian - 10/02/2020 10:47 EDT documented in this encounter Plan of Treatment Not on file documented as of this encounter Visit Diagnoses Not on filedocumented in this encounter
--- OUTSIDE RECORDS SUMMARY | 2024-10-17 13:14 | XMS_ITS | Referral Summary ---
Author Organization [employer] ([place], [place], [place], [place]) Address [address] [place] [address] Care Team Providers Care Sales Representative Leather Goods Name Role Phone Unavailable Primary Care Provider [...]
--- OUTSIDE RECORDS SUMMARY | 2024-10-17 13:14 | XMS_ITS | Encounter Summary ---
Author Organization [employer] ([place], [place], [place], [place]) Address [address] [place] [address] Care Team Providers Care Advertising Associate Name Role Phone Unavailable Primary Care Provider Unavailabl e Encounter Details Date Type Department Care Team (Late st Contact Info) Description 10/13/2020 Transcribed Document [facility] [place] Family Medicine [address] [place] [address] ProviderRadha MD [address], [place] [address] Social History Tobacco Use Types Packs/Day Years Used Date Smoking Tobacco: Never Assessed Comments Unknown Sex and Gender Information Value Date Recorded Sex Assigned at Not on file Legal Sex Female 7:21 PM CDT Gender Identity Not on file Sexual Orientation Not on file documented as of this encounter Miscellaneous Notes * Cerner Conversion Note - Historical ProviderMD - 10/13/2020 10:24 AM CDT Nursing Discharge Summary Entered On: 10/13/2020 10:25 EDT Performed On: 10/13/2020 10:24 EDT by Faye Escobedo RN-TRAVELER Discharge Documentation Patient Disposition, General : Discharge Discharge To : Rehabilitation unit/facility Mode Of Departure, General Discharge : Ambulance/ALS IV Discontinued : Yes Personal Belongings With Patient : Yes Pt's Own Supply of Medications Returned : No patient supply of medications to return Prescriptions Given to Patient : No Medications Given to Patient : No Discharge Instructions Reviewed With, Opportunity For Questions Given : Patient Patient Education Completed : Yes Teaching Method : Explanation Teaching Evaluation : Verbalizes understanding Faye Escobedo RN-TRAVELER - 10/13/2020 10:24 EDT documented in this encounter Plan of Treatment Not on file documented as of this encounter Visit Diagnoses Not on filedocumented in this encounter
--- OUTSIDE RECORDS SUMMARY | 2024-10-17 13:14 | XMS_ITS | Encounter Summary ---
Author Organization [employer] ([place], [place], [place], [place]) Address [address] [place] [address] Care Team Providers Care House Moving Supervisor Name Role Phone Unavailable Primary Care Provider Unavailabl e Encounter Details Date Type Department Care Team (Late st Contact Info) Description 10/13/2020 Transcribed Document [facility] [place] Family Medicine [address] [place] [address] ProviderRadha MD [address] [place], [place] [address] Social History Tobacco Use Types Packs/Day Years Used Date Smoking Tobacco: Never Assessed Comments Unknown Sex and Gender Information Value Date Recorded Sex Assigned at Not on file Legal Sex Female 7:21 PM CDT Gender Identity Not on file Sexual Orientation Not on file documented as of this encounter Miscellaneous Notes * Cerner Conversion Note - Radha ProviderMD - 10/13/2020 10:24 AM CDT Stroke/Warfarin Instructions Entered On: 10/13/2020 10:24 EDT Performed On: 10/13/2020 10:24 EDT by Faye Escobedo RN-TRAVELER Stroke/Warfarin Instructions Stroke/TIA Discharge Ins : N/A Warfarin Discharge Ins : N/A Faye Escobedo RN-TRAVELER - 10/13/2020 10:24 EDT Electronically signed by Galen Miller Conversion Tipping Machine Operator Automatic Cerner at 08/02/2022 6:16 PM CDT documented in this encounter Plan of Treatment Not on file documented as of this encounter Visit Diagnoses Not on filedocumented in this encounter
--- OUTSIDE RECORDS SUMMARY | 2024-10-17 13:14 | XMS_ITS | Encounter Summary ---
Author Organization [facility] Address [address] [place] [address] Care Team Providers Care Plastic Sheets Finishing Supervisor Name Role Phone Clarence Ram MD Primary Care Provider [phone] Reason for Referral * Consultation (Routine) - Closed Specialty Diagnoses / Procedures Referred By Danilo joseph Referred To Contact Plastic Surgery Diagnoses Loose skin Excessive body weight loss Wendy Payne, GRAIN TRADER [address] [place] [address] Phone: tel: fax: Referral ID Status Reason Start Date Expiration Date V isits Requested Visits Authorized [id number] Closed Specialty Services Required 05/22/2024 11/21/2025 1 1 Encounter Details Date Type Department Care Team (Late st Contact Info) Description 05/22/2024 Community Orders [facility] [address] [place] [address] Wendy Payne, GRAIN TRADER [address] [place] [address] Loose skin (Primary Dx); Excessive body weight loss Social History Tobacco Use Types Packs/Day Years [...] Referral to Plastic Surgery Outpatient Referral Routine Loose skin Excessive body weight loss Ordered: 05/22/2024 documented as of this encounter Visit Diagnoses Diagnosis Loose skin- Primary Excessive body weight loss Loss of weight documented in this encounter Care Teams Plastic Sheets Finishing Supervisor Relationship Specialty Start Date End Date Clarence Ram MD [address] [place] [address] [place] [address] PCP - General 08/28/20 documented as of this encounter
--- OUTSIDE RECORDS SUMMARY | 2024-10-17 13:14 | XMS_ITS | Encounter Summary ---
Author Organization [employer] ([place], [place], [place], [place]) Address [address] [place] [address] Care Team Providers Care Cash Applications Coordinator Name Role Phone Unavailable Primary Care Provider Unavailabl e Encounter Details Date Type Department Care Team (Late st Contact Info) Description 10/02/2020 Transcribed Document [facility] [place] Family Medicine [address] [place] [address] ProviderRadha MD [address] [place] [address] Social History Tobacco Use Types Packs/Day Years Used Date Smoking Tobacco: Never Assessed Comments Unknown Sex and Gender Information Value Date Recorded Sex Assigned at Not on file Legal Sex Female 7:21 PM CDT Gender Identity Not on file Sexual Orientation Not on file documented as of this encounter Miscellaneous Notes * Cerner Conversion Note - Historical ProviderMD - 10/02/2020 2:12 AM CDT Patient: LUH GLASS Age: 59 Years Sex: Female : 1960 c diff + started oral vanc 125mg PO q6 documented in this encounter Plan of Treatment Not on file documented as of this encounter Visit Diagnoses Not on filedocumented in this encounter
--- OUTSIDE RECORDS SUMMARY | 2024-10-17 13:14 | XMS_ITS | Encounter Summary ---
Author Organization [employer] ([place], [place], [place], [place]) Address [address] [place] [address] Care Team Providers Care Mold Engraver Name Role Phone Unavailable Primary Care Provider Unavailabl e Encounter Details Date Type Department Care Team (Late st Contact Info) Description 10/12/2020 Transcribed Document [facility] [place] [address] [place] [address] ProviderRadha MD [address] [place] [address] Social History Tobacco Use Types Packs/Day Years Used Date Smoking Tobacco: Never Assessed Comments Unknown Sex and Gender Information Value Date Recorded Sex Assigned at Not on file Legal Sex Female 7:21 PM CDT Gender Identity Not on file Sexual Orientation Not on file documented as of this encounter Miscellaneous Notes * Cerner Conversion Note - Radha ProviderMD - 10/12/2020 4:20 PM CDT Final Discharge Planning Entered On: 10/12/2020 16:21 EDT Performed On: 10/12/2020 16:20 EDT by BHARGAVI MEYER, RN-Cardiovascular Sonographer Final Discharge Planning Discharge Arrangements : Patient Post-Acute Information Patient Name: LUH GLASS Gender: Female : [birth year] Age: 59 Years No Post-Acute Placement(s) Listed No Post-Acute Service(s) Listed No [place] Referral(s) Listed Patient Offered Choice/Affiliations Explained : Yes Important Medicare Message Reviewed With : Patient Transportation Needs : Ambulance Discharge Transportation Arrangement Cmt : 10/13@1100 BHARGAVI MEYER, RN-Cardiovascular Sonographer - 10/12/2020 16:20 EDT documented in this encounter Plan of Treatment Not on file documented as of this encounter Visit Diagnoses Not on filedocumented in this encounter
--- OUTSIDE RECORDS SUMMARY | 2024-10-17 13:14 | XMS_ITS | Encounter Summary ---
Author Organization [employer] ([place], [place], [place], [place]) Address [address] [place] [address] Care Team Providers Care Machine Fur Cleaner Name Role Phone Unavailable Primary Care Provider Unavailabl e Encounter Details Date Type Department Care Team (Late st Contact Info) Description 10/13/2020 Transcribed Document [facility] [place] Family Medicine [address] [place] [address] ProviderRadha MD [address] [place] [address] Social History Tobacco Use Types Packs/Day Years Used Date Smoking Tobacco: Never Assessed Comments Unknown Sex and Gender Information Value Date Recorded Sex Assigned at Not on file Legal Sex Female 7:21 PM CDT Gender Identity Not on file Sexual Orientation Not on file documented as of this encounter Miscellaneous Notes * Cerner Conversion Note - Radha Reed MD - 10/13/2020 8:47 AM CDT Final Discharge Planning Entered On: 10/13/2020 8:48 EDT Performed On: 10/13/2020 8:47 EDT by PADMA GOMEZ, Rougher Machine Operator-Concessionist Final Discharge Planning Is Patient High/Moderate Readmission Risk? : Yes Patient/Family Notified of Plan : Yes Support Person/Pt Rep Notified of Plan : Yes Is Patient Ready for Discharge? : Yes Physician Notified Patient is Ready for Discharge? : Yes Discharge To Care Management : SNF with Medicare Certification-03 PADMA GOMEZ Rougher Machine Operator-Concessionist - 10/13/2020 8:49 EDT Discharge Arrangements : Patient Post-Acute Information Patient Name: LUH BOSCH Gender: Female : [birth year] Age: 59 Years No Post-Acute Placement(s) Listed No Post-Acute Service(s) Listed No [place] Referral(s) Listed Patient Offered Choice/Affiliations Explained : Yes Designation of Choice Signed : Yes Important Medicare Message Reviewed With : Patient Important Medicare Message Reviewed D/T : 10/14/2020 8:48 EDT Transportation Needs : Ambulance Discharge Transportation Arrangement Cmt : 10/13@1100 Follow Up Appointment Scheduled : No PADMA GOMEZ, Rougher Machine Operator-Concessionist - 10/13/2020 8:47 EDT Final Narrative Note Final Narrative Note : Patient is a moderate readmission risk. Patient is discharging to [facility] today at 11 by [facility]. Patient stated that her family is aware. No other needs identified. PADMA GOMEZ, Rougher Machine Operator-Concessionist - 10/13/2020 8:49 EDT documented in this encounter Plan of Treatment Not on file documented as of this encounter Visit Diagnoses Not on filedocumented in this encounter
--- OUTSIDE RECORDS SUMMARY | 2024-10-17 13:14 | XMS_ITS | Encounter Summary ---
Author Organization [employer] ([place], [place], [place], [place]) Address [address] [place] [address] Care Team Providers Care Rn First Assistant Name Role Phone Unavailable Primary Care Provider Unavailabl e Encounter Details Date Type Department Care Team (Late st Contact Info) Description 10/03/2020 Transcribed Document [facility] [place] Family Medicine [address] [place] [address] ProviderRadha MD [address] [place] [address] Social History Tobacco Use Types Packs/Day Years Used Date Smoking Tobacco: Never Assessed Comments Unknown Sex and Gender Information Value Date Recorded Sex Assigned at Not on file Legal Sex Female 7:21 PM CDT Gender Identity Not on file Sexual Orientation Not on file documented as of this encounter Miscellaneous Notes * Cerner Conversion Note - Historical ProviderMD - 10/03/2020 2:00 AM CDT Waredresser Details Entered On: 10/03/2020 3:25 EDT Performed On: 10/03/2020 2:00 EDT by Desire Verduzco Order Details [...] Meds Crushed/Liquid : No Desire Verduzco - 10/03/2020 3:25 EDT documented in this encounter Plan of Treatment Not on file documented as of this encounter Visit Diagnoses Not on filedocumented in this encounter
--- OUTSIDE RECORDS SUMMARY | 2024-10-17 13:14 | XMS_ITS | Encounter Summary ---
Author Organization [employer] ([place], [place], [place], [place]) Address [address] [place] [address] Care Team Providers Care Chemistry Faculty Member Name Role Phone Unavailable Primary Care Provider Derrell rose Encounter Details Date Type Department Care Team (Late st Contact Info) Description 09/30/2020 Transcribed Document [facility] [place] [address] [place] [address] ProviderRadha MD [address] [place] [address] Social History Tobacco Use Types Packs/Day Years Used Date Smoking Tobacco: Never Assessed Comments Unknown Sex and Gender Information Value Date Recorded Sex Assigned at Not on file Legal Sex Female 7:21 PM CDT Gender Identity Not on file Sexual Orientation Not on file documented as of this encounter Miscellaneous Notes * Cerner Conversion Note - Radha Reed MD - 09/30/2020 10:56 AM CDT Patient: LUH BOSCH Age: 59 years Sex: Female : 1960 Associated Diagnoses: None Author: KIERSTEN COLEY DO Basic Information pt seen and examined 09/30 sitting up in bed states she had anasarca about a month ago that she was hospitalized for, improved and went to rehab facility for strengthening, then edema recurred and she was sent to us she states she has been on an 800 narendra per day diet for the last 2 years and had lost over 100 lbs. However she has recently gained 'over a hundred pounds of fluid' she typically would ambulate in her home with the assistance of a walker at times. When she was hospitalized she weakened but states she had been making good progress with ambulating at the rehab facility no current complaints except being thirsty Review of Systems Constitutional: No fever, No chills. Ear/Nose/Mouth/Throat: No nasal congestion, No sore throat. Respiratory: No sputum production, No hemoptysis. Gastrointestinal: No nausea, No vomiting. Genitourinary: No dysuria, No hematuria. Immunologic: No recurrent fevers, No recurrent infections. Musculoskeletal: No neck pain, No joint pain. Integumentary: No rash, No pruritus. Neurologic: Alert and oriented X4, No abnormal balance. Psychiatric: No anxiety, No depression. Health Status Allergies: Allergic Reactions (Selected) High Fish- No reactions were documented. Severity Not Documented Dilaudid- No reactions were documented. Morphine- No reactions were documented. Penicillin- No reactions were documented., Allergies (4) Active Reaction Fish None Documented Dilaudid None Documented morphine None Documented penicillin None Documented Current medications: (Selected) Inpatient Medications Ordered Cozaar: 25 mg, Oral, Daily DuoNeb 0.5 mg-2.5 mg/3 mL inhalation solution: 3 mL, Nebulized Inhalation, RT_Q6H, PRN: Shortness of Breath Lantus: 10 Units, SubCutaneous, Daily Lipitor: 40 mg, Oral, Daily MiraLax: 17 Gram, Oral, Daily, PRN: Constipation Phenergan: 6.25 mg, IntraVENous, Q6H, PRN: Nausea Rocephin: 1 Gram, 100 mL/Hr, IV Piggyback, [id number] Roxicodone: 5 mg, Oral, Q4H, PRN: Pain (Moderate 4-6) Singulair: 10 mg, Oral, Daily Tylenol: 650 mg, Oral, Q4H, PRN: Fever Tylenol: 650 mg, Oral, Q4H, PRN: Pain (Mild 1-3) Zofran: 4 mg, IV Push, Q4H, PRN: Nausea albumin human 25% intravenous solution: 12.5 Gram, 50 mL, 60 mL/Hr, IV Piggyback, Q8H heparin: 5,000 Units, SubCutaneous, Q8H insulin lispro sliding scale: Scale B:, SubCutaneous, AC and at Bedtime insulin lispro: 4 Units, SubCutaneous, TID With Meals levothyroxine: 75 mcg, Oral, Daily melatonin: 3 mg, Oral, At Bedtime, PRN: Insomnia mometasone: 2 Puff, Inhalation, RT_BID pantoprazole: 40 mg, Oral, Daily Documented Medications Documented Bydureon BCise 2 mg/0.85 mL subcutaneous suspension, extended release: 0 Refill(s) Flovent Diskus 100 mcg/inh inhalation powder: 2 Puff, Inhalation, BID, 60 Each, 0 Refill(s) Potassium Chloride (Nyv-Tybv-Eui 10) 10 mEq oral tablet, extended release: 0 Refill(s) atorvastatin 40 mg oral tablet: 0 Refill(s) levothyroxine 75 mcg (0.075 mg) oral tablet: 1 Tab, Oral, Daily, 60 Tab, 0 Refill(s) losartan 25 mg oral tablet: 0 Refill(s) metOLazone 2.5 mg oral tablet: 0 Refill(s) montelukast 10 mg oral tablet: 0 Refill(s) omeprazole 40 mg oral delayed release capsule: 1 Cap, Oral, Daily, before a meal, 30 Cap, 0 Refill(s) Problem list: Medical History of obstructive sleep apnea / IMO [id number] / Confirmed, Active Problems (1) History of obstructive sleep apnea Physical Examination VS/Measurements Vitals Signs (last 24 hrs) Last Charted Minimum Maximum Temp 97.6 (SEP 30 05:00) 97.6 (SEP 30:) 97.4 (SEP 29:) Mon HR 110 (SEP 30:09) 110 (SEP 30:) 126 (SEP 29:) Resp Rate 20 (SEP 30:) 20 (SEP 29:) 20 (SEP 29:) SBP 127 (SEP 30 05:00) 108 (SEP 30:27) 127 (SEP 30 05:00) DBP 81 (SEP 30 05:00) 70 (SEP 30:27) 81 (SEP 30 05:00) MAP 94 (SEP 30 05:00) 85 (SEP 30:27) 94 (SEP 30 05:00) SpO2 96 (SEP 30 09:09) 96 (SEP 29:) 96 (SEP 29:) General: Alert and oriented, No acute distress, [...] (SEP 15) HCT 35.0 (SEP 16) 38.8 (SEP 15) Plt H 468 (SEP 16) 277 (SEP 15) Na L 127 (SEP 16) L 126 (SEP 15) K 4.0 (SEP 16) 3.9 (SEP 15) Cl L 95 (SEP 16) L 95 (SEP 15) CO2 21 (SEP 16) 22 (SEP 15) BUN H 55 (SEP 16) H 57 (SEP 15) Cr 0.80 (SEP 16) 0.80 (SEP 15) Glu R H 230 (SEP 16) H 246 (SEP 15) Ca L 7.8 (SEP 16) L 7.5 (SEP 15) Lactic C 5.7 (SEP 16) C 5.6 (SEP 15) PT H 12.3 (SEP 15) INR 1.2 (SEP 15) AST H 58 (SEP 16) H 63 (SEP 15) ALT 29 (SEP 16) 32 (SEP 15) ALK P H 305 (SEP 16) H 333 (SEP 15) T Bili 0.6 (SEP 16) 0.3 (SEP 15) PTN L 4.5 (SEP 16) L 4.6 (SEP 15) ALB L 1.0 (SEP 16) L 0.9 (SEP 15) . Impression and Plan Hyponatremia, gross volume overload, anasarca -Na slightly better severe hypoalbuminemia; iv infusions to assist with mobilization; needs diuresis lactic acidosis severe protein calorie malnutrition pre-albumin very low contributing to the above possible acute cystitis; may be contaminated - urine with WBC clumps. UA pending. on empiric rocephin Type 2 diabetes mellitus, unknown control - check A1C, add lantus and mealtime scheduled insulin Hyperlipidemia - resume statin Hypothyroidism - normal TSH, resume synthroid GERD - continue home PPI Morbid Obesity, complicating all aspects of care. BMI: 63.4 needs PT.OT nephrology recs pending, needs diuresis will check on echo medically complex time 35mins documented in this encounter Plan of Treatment Not on file documented as of this encounter Visit Diagnoses Not on filedocumented in this encounter
--- OUTSIDE RECORDS SUMMARY | 2024-10-17 13:15 | XMS_ITS | Patient Health Record ---
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 Role Phone YoClarence Primary Care Provider [phone] Wendy Payne Unavailable [phone] Wendy Cortez Unavailable [phone] Migration, Provider Unavailable Unavailable Allergies Allergen (clinical [...] 1.025 Ketone neg Bili neg Glucose neg M-Free T4 (Free Thyroxine) Reviewed date:04/11/2024 09:22:17 AM Interpretation: Performing Lab: Notes/Report: T4F 1.37 0.78-2.19 ng/dl M-Thyroid Stimulating Hormon e Reviewed date:04/11/2024 09:22:17 AM Interpretation: Performing Lab: Notes/Report: TSH 2.80 0.465-4.68 uIU/mL Mammogram: Screening Reviewed date:04/09/2024 08:32:39 AM Interpretation: Performing Lab: Notes/Report: DEXA Hip and Spine - Screeni ng Reviewed date:03/27/2024 02:06:32 PM Interpretation: Performing Lab: Notes/Report: CULTURE, URINE, ROUTINE (395 ) Reviewed date:01/12/2024 10:50:55 AM Interpretation: Performing Lab:[facility] Tk20-Rubin [id number], [facility] [place]PdqzIX[address] Ajay Culver Notes/Report: NON-FASTING FASTING:UNKNOWN FASTING: UNKNOWN CULTURE, URINE, ROUTINE SEE NOTE CULTURE, URINE, ROUTINE Micro Number: [id number] Test Status: Final Specimen Source: Urine Specimen Quality: Adequate Result: Mixed genital guadalupe isolated. These superficial bacteria are not indicative of a urinary tract infection. No further organism identification is warranted on this specimen. If clinically indicated, recollect clean-catch, mid-stream urine and transfer immediately to Urine Culture Transport Tube. CULTURE, URINE, ROUTINE (395 ) Reviewed date:10/14/2024 02:50:35 PM Interpretation: Performing Lab:[facility] Tk20-Cartasite [id number] [address] [facility], [facility] [place]FpldNW[address] Ajay Culver Notes/Report: CULTURE, URINE, ROUTINE SEE NOTE CULTURE, URINE, ROUTINE Micro Number: [id number] Test Status: Final Specimen Source: Urine Specimen Quality: Adequate Result: Non-uropathogenic Gram positive organism May represent colonizers from external and internal genitalia. No further testing (including susceptibility) will be performed. M-Basic Metabolic Panel Reviewed date:04/11/2024 09:22:17 AM Interpretation: Performing Lab: Notes/Report: NA 137 136-145 mmol/L K 4.6 3.5-5.1 mmoL/L CL 98 98-107 mmol/L CO2 31 22.0-30.0 mmol/L GAP 12.6 5-15 mEq/L BUN 34 7-17 mg/dl CREATT 1.10 0.52-1.04 mg/dl GFRAA 61 >60 ML/MIN EGFR 50 >60 ml/min GLU 107 74-100 mg/dl CA 9.8 8.4-10.2 mg/dl Ultrasound : Soft Tissue, Ne ck Reviewed date:01/25/2024 01:50:01 PM Interpretation: Performing Lab: Notes/Report: Urinalysis Reviewed date:01/10/2024 03:52:36 PM Interpretation: Performing Lab: Notes/Report: Color/Clarity yellow Leuk trace Nitrite neg Urobili 0.2 Protein neg pH 5.5 Blood neg Sp. Gr. 1.015 Ketone neg Bili neg Glucose 500 ECHOCARDIOGRAM Reviewed date:03/30/2024 03:03:15 PM Interpretation: Performing Lab: Notes/Report: BASIC METABOLIC PANEL (90441 ) Reviewed date:12/13/2023 10:19:03 AM Interpretation: Performing Lab:[facility] Tk20-Rubin Hectore1355 InksharesteAnn [facility], [facility] [place]XdfdYC[address] Ajay Culver Notes/Report: NON-FASTING; NON-FASTING GLUCOSE 71 65-99 mg/dL Fasting reference interval UREA NITROGEN (BUN) 28 7-25 mg/dL CREATININE 1.11 0.50-1.05 mg/dL EGFR 56 > OR = 60 mL/min/1.73m2 BUN/CREATININE RATIO 25 6-22 (calc) SODIUM 140 135-146 mmol/L POTASSIUM 4.6 3.5-5.3 mmol/L CHLORIDE 102 98-110 mmol/L CARBON DIOXIDE 25 20-32 mmol/L CALCIUM 9.7 8.6-10.4 mg/dL HEMOGLOBIN A1c (496) Reviewed date:12/13/2023 10:19:03 AM Interpretation: Performing Lab:[facility] Tk20-Cartasite [id number] [place] [facility] Ajay Culver Notes/Report: NON-FASTING; NON-FASTING HEMOGLOBIN A1c 6.8 <5.7 % of total Hgb For someone without known diabetes, a hemoglobin A1c value of 6.5% or greater indicates that they may have diabetes and this should be confirmed with a follow-up test. For someone with known diabetes, a value <7% indicates that their diabetes is well controlled and a value greater than or equal to 7% indicates suboptimal control. A1c targets should be individualized based on duration of diabetes, age, comorbid conditions, and other considerations. Currently, no consensus exists regarding use of hemoglobin A1c for diagnosis of diabetes for children. This test was performed on the Garrett edie c503 platform. Effective 06/21/23, a change in test platforms from the [employer] Continuous Process Machine Operator to the Garrett edie c503 may have shifted HbA1c results compared to historical results. Based on laboratory validation testing conducted at [facility], the Garrett platform relative to the [employer] platform had an average increase in HbA1c value of < or = 0.3%. This difference is within accepted variability established by the National Glycohemoglobin Standardization Program. Note that not all individuals will have had a shift in their results and direct comparisons between historical and current results for testing conducted on different platforms is not recommended. CAROTID DUPLEX Reviewed date:03/27/2024 09:41:19 AM Interpretation: Performing Lab: Notes/Report: FERRITIN (457) Reviewed date:01/19/2024 01:44:28 PM Interpretation: Performing Lab:SOC[facility], Tk20-Cartasite [id number] [facility], [place] MarketKxamCK[address] Ajay Culver Notes/Report: NON-FASTING; NON-FASTING; NON-FASTING; NON-FASTING FERRITIN 219 16-288 ng/mL CBC (INCLUDES DIFF/PLT) (639 9) Reviewed date:01/19/2024 10:24:45 AM Interpretation: Performing Lab:SOC[facility]RO, Tk20-Cartasite [id number] [address] [facility], [place] MarketFqntRF[address] Ajay Culver Notes/Report: NON-FASTING; NON-FASTING; NON-FASTING; NON-FASTING WHITE BLOOD CELL COUNT 7.3 3.8-10.8 Thousand/ uL RED BLOOD CELL COUNT 5.31 3.80-5.10 Million/uL HEMOGLOBIN 15.1 11.7-15.5 g/dL HEMATOCRIT 46.1 35.0-45.0 % MCV 86.8 80.0-100.0 fL MCH 28.4 27.0-33.0 pg MCHC 32.8 32.0-36.0 g/dL For adults, a slight decrease in the calculated MCHC value (in the range of 30 to 32 g/dL) is most likely not clinically significant; however, it should be interpreted with caution in correlation with other red cell parameters and the patient's clinical condition. RDW 14.1 11.0-15.0 % PLATELET COUNT 313 140-400 Thousand/uL MPV 11.0 7.5-12.5 fL ABSOLUTE NEUTROPHILS [phone] cells/uL ABSOLUTE LYMPHOCYTES 2270 850-3900 cells/uL ABSOLUTE MONOCYTES 526 200-950 cells/uL ABSOLUTE EOSINOPHILS 526 15-500 cells/uL ABSOLUTE BASOPHILS 73 0-200 cells/uL NEUTROPHILS 53.5 LYMPHOCYTES 31.1 MONOCYTES 7.2 EOSINOPHILS 7.2 BASOPHILS 1.0 MAGNESIUM (622) Reviewed date:01/19/2024 10:24:45 AM Interpretation: Performing Lab:CB, Tk20-Sweet Briar [id number] [facility], [facility] [place]HqszJO[address] Ajay Culver Notes/Report: NON-FASTING; NON-FASTING; NON-FASTING; NON-FASTING MAGNESIUM 2.0 1.5-2.5 mg/dL COMPREHENSIVE METABOLIC PANE L (54587) Reviewed date:01/19/2024 10:24:45 AM Interpretation: Performing Lab:CB, [facility]-[place] [id number] [facility], [facility] [place]VzfcLW[address] Ajay Culver Notes/Report: NON-FASTING; NON-FASTING; NON-FASTING; NON-FASTING GLUCOSE 119 65-99 mg/dL Fasting reference interval For someone without known diabetes, a glucose value between 100 and 125 mg/dL is consistent with prediabetes and should be confirmed with a follow-up test. UREA NITROGEN (BUN) 25 7-25 mg/dL CREATININE 1.28 0.50-1.05 mg/dL EGFR 47 > OR = 60 mL/min/1.73m2 BUN/CREATININE RATIO 20 6-22 (calc) SODIUM 133 135-146 mmol/L POTASSIUM 4.8 3.5-5.3 mmol/L CHLORIDE 97 98-110 mmol/L CARBON DIOXIDE 26 20-32 mmol/L CALCIUM 9.9 8.6-10.4 mg/dL PROTEIN, TOTAL 6.8 6.1-8.1 g/dL ALBUMIN 3.9 3.6-5.1 g/dL GLOBULIN 2.9 1.9-3.7 g/dL (calc) ALBUMIN/GLOBULIN RATIO 1.3 1.0-2.5 (calc) BILIRUBIN, TOTAL 0.6 0.2-1.2 mg/dL ALKALINE PHOSPHATASE 90 37-153 U/L AST 13 10-35 U/L ALT 13 6-29 U/L Holter Monitor, 48 hour Reviewed date:03/27/2024 09:46:47 AM Interpretation: Performing Lab: Notes/Report: Microalbumin (In-House) Reviewed date:03/12/2024 01:34:14 PM Interpretation:Normal Performing Lab: Notes/Report: Normal ALB 30mg CRE 100mg/dL A:C <30mg/g CBC (INCLUDES DIFF/PLT) (639 9) Reviewed date:07/16/2024 10:06:22 AM Interpretation: Performing Lab:[facility] Tk20-Cartasite [id number] Inks[address]aresteHealth [address], [facility] [place]MuloZG[address] Ajay Culver Notes/Report: NON-FASTING; NON-FASTING; NON-FASTING; NON-FASTING; NON-FAST WHITE BLOOD CELL COUNT 7.8 3.8-10.8 Thousand/ uL RED BLOOD CELL COUNT 5.26 3.80-5.10 Million/uL HEMOGLOBIN 14.7 11.7-15.5 g/dL HEMATOCRIT 45.9 35.0-45.0 % MCV 87.3 80.0-100.0 fL MCH 27.9 27.0-33.0 pg MCHC 32.0 32.0-36.0 g/dL For adults, a slight decrease in the calculated MCHC value (in the range of 30 to 32 g/dL) is most likely not clinically significant; however, it should be interpreted with caution in correlation with other red cell parameters and the patient's clinical condition. RDW 13.4 11.0-15.0 % PLATELET COUNT 338 140-400 Thousand/uL MPV 10.2 7.5-12.5 fL ABSOLUTE NEUTROPHILS [phone] cells/uL ABSOLUTE LYMPHOCYTES 6421 010-2238 cells/uL ABSOLUTE MONOCYTES 491 200-950 cells/uL ABSOLUTE EOSINOPHILS 218 15-500 cells/uL ABSOLUTE BASOPHILS 62 0-200 cells/uL NEUTROPHILS 68.7 LYMPHOCYTES 21.4 MONOCYTES 6.3 EOSINOPHILS 2.8 BASOPHILS 0.8 CBC (INCLUDES DIFF/PLT) (639 9) Reviewed date:08/30/2024 12:36:40 PM Interpretation: Performing Lab:SOC[facility]RO Tk20-Cartasite [id number] [address], [facility] ClinicWdkgFA[address] Ajay Culver Notes/Report: NON-FASTING; NON-FASTING; NON-FASTING; NON-FASTING; NON-FAST WHITE BLOOD CELL COUNT 6.8 3.8-10.8 Thousand/ uL RED BLOOD CELL COUNT 5.36 3.80-5.10 Million/uL HEMOGLOBIN 15.5 11.7-15.5 g/dL HEMATOCRIT 48.6 35.0-45.0 % MCV 90.7 80.0-100.0 fL MCH 28.9 27.0-33.0 pg MCHC 31.9 32.0-36.0 g/dL For adults, a slight decrease in the calculated MCHC value (in the range of 30 to 32 g/dL) is most likely not clinically significant; however, it should be interpreted with caution in correlation with other red cell parameters and the patient's clinical condition. RDW 14.2 11.0-15.0 % PLATELET COUNT 303 140-400 Thousand/uL MPV 10.3 7.5-12.5 fL ABSOLUTE NEUTROPHILS [phone] cells/uL ABSOLUTE LYMPHOCYTES 9901 892-0495 cells/uL ABSOLUTE MONOCYTES 483 200-950 cells/uL ABSOLUTE EOSINOPHILS 163 15-500 cells/uL ABSOLUTE BASOPHILS 68 0-200 cells/uL NEUTROPHILS 60.6 LYMPHOCYTES 28.9 MONOCYTES 7.1 EOSINOPHILS 2.4 BASOPHILS 1.0 CREATINE KINASE, TOTAL (374) Reviewed date:08/30/2024 12:36:40 PM Interpretation: Performing Lab:SOC[facility] Tk[address], [place] MarketEzjfNY[address] Ajay Culver Notes/Report: NON-FASTING; NON-FASTING; NON-FASTING; NON-FASTING; NON-FAST CREATINE KINASE, TOTAL 53 20-243 U/L MAGNESIUM (622) Reviewed date:07/16/2024 10:06:22 AM Interpretation: Performing Lab:SOC[facility] Tk[address], [place] MarketDqsoMU[address] Ajay Culver Notes/Report: NON-FASTING; NON-FASTING; NON-FASTING; NON-FASTING; NON-FAST MAGNESIUM 2.2 1.5-2.5 mg/dL MAGNESIUM (622) Reviewed date:08/30/2024 12:36:40 PM Interpretation: Performing Lab:[facility] Tk20-Cartasite [id number], [place] MarketGscbIK[address] Ajay Culver Notes/Report: NON-FASTING; NON-FASTING; NON-FASTING; NON-FASTING; NON-FAST MAGNESIUM 2.2 1.5-2.5 mg/dL COMPREHENSIVE METABOLIC PANE L (21326) Reviewed date:08/30/2024 12:36:40 PM Interpretation: Performing Lab:[facility] Tk[address], [facility] RochesterOtpqVQ[address] Ajay Culver Notes/Report: NON-FASTING; NON-FASTING; NON-FASTING; NON-FASTING; NON-FAST GLUCOSE 220 65-99 mg/dL Fasting reference interval For someone without known diabetes, a glucose value >125 mg/dL indicates that they may have diabetes and this should be confirmed with a follow-up test. UREA NITROGEN (BUN) 29 7-25 mg/dL CREATININE 0.90 0.50-1.05 mg/dL EGFR 72 > OR = 60 mL/min/1.73m2 BUN/CREATININE RATIO 32 6-22 (calc) SODIUM 140 135-146 mmol/L POTASSIUM 4.3 3.5-5.3 mmol/L CHLORIDE 102 98-110 mmol/L CARBON DIOXIDE 28 20-32 mmol/L CALCIUM 9.0 8.6-10.4 mg/dL PROTEIN, TOTAL 6.9 6.1-8.1 g/dL ALBUMIN 4.0 3.6-5.1 g/dL GLOBULIN 2.9 1.9-3.7 g/dL (calc) ALBUMIN/GLOBULIN RATIO 1.4 1.0-2.5 (calc) BILIRUBIN, TOTAL 0.4 0.2-1.2 mg/dL ALKALINE PHOSPHATASE 87 37-153 U/L AST 16 10-35 U/L ALT 17 6-29 U/L COMPREHENSIVE METABOLIC PANE (48853) Reviewed date:07/16/2024 10:06:22 AM Interpretation: Performing Lab:CB, [facility] [id number] [facility] Center[facility], [facility] RochesterHifoKJ[address] Ajay Culver Notes/Report: NON-FASTING; NON-FASTING; NON-FASTING; NON-FASTING; NON-FAST GLUCOSE 89 65-99 mg/dL Fasting reference interval UREA NITROGEN (BUN) 30 7-25 mg/dL CREATININE 0.92 0.50-1.05 mg/dL EGFR 70 > OR = 60 mL/min/1.73m2 BUN/CREATININE RATIO 33 6-22 (calc) SODIUM 139 135-146 mmol/L POTASSIUM 4.4 3.5-5.3 mmol/L CHLORIDE 101 98-110 mmol/L CARBON DIOXIDE 28 20-32 mmol/L CALCIUM 9.3 8.6-10.4 mg/dL PROTEIN, TOTAL 6.8 6.1-8.1 g/dL ALBUMIN 3.8 3.6-5.1 g/dL GLOBULIN 3.0 1.9-3.7 g/dL (calc) ALBUMIN/GLOBULIN RATIO 1.3 1.0-2.5 (calc) BILIRUBIN, TOTAL 0.4 0.2-1.2 mg/dL ALKALINE PHOSPHATASE 88 37-153 U/L AST 16 10-35 U/L ALT 16 6-29 U/L LIPID PANEL, STANDARD (7600) Reviewed date:07/16/2024 10:06:22 AM Interpretation: Performing Lab:SOC[facility] Tk20-Cartasite Puyb4560 ChatterPlugAnn [facility], [facility] RochesterFwrhVD[address] Ajay Culver Notes/Report: NON-FASTING; NON-FASTING; NON-FASTING; NON-FASTING; NON-FAST CHOLESTEROL, TOTAL 116 <200 mg/dL HDL CHOLESTEROL 44 > OR = 50 mg/dL TRIGLYCERIDES 124 <150 mg/dL LDL-CHOLESTEROL 51 Reference range: <100 Desirable range <100 mg/dL for primary prevention; <70 mg/dL for patients with CHD or diabetic patients with > or = 2 CHD risk factors. LDL-C is now calculated using the Floyd-Alaniz calculation, which is a validated novel method providing better accuracy than the Friedewald equation in the estimation of LDL-C. Floyd SS et al. NURA. 2013;310(19): 9252-0214 (http://education.bttn.com/faq/JSB575) CHOL/HDLC RATIO 2.6 <5.0 (calc) NON HDL CHOLESTEROL 72 <130 mg/dL (calc) For patients with diabetes plus 1 major ASCVD risk factor, treating to a non-HDL-C goal of <100 mg/dL (LDL-C of <70 mg/dL) is considered a therapeutic option. C-REACTIVE PROTEIN (4420) Reviewed date:08/30/2024 12:36:40 PM Interpretation: Performing Lab:SOC[facility]RO Tk20-Cartasite [id number] [place] [facility], [facility] RochesterBedwKT[address] Ajay Culver Notes/Report: NON-FASTING; NON-FASTING; NON-FASTING; NON-FASTING; NON-FAST C-REACTIVE PROTEIN <3.0 <8.0 mg/L HEMOGLOBIN A1c (496) Reviewed date:07/16/2024 10:06:22 AM Interpretation: Performing Lab:SOC[facility]RO Tk20-Cartasite [address], [facility] RochesterVvgwYA[address] Ajay Culver Notes/Report: NON-FASTING; NON-FASTING; NON-FASTING; NON-FASTING; NON-FAST HEMOGLOBIN A1c 7.0 <5.7 % of total Hgb For someone without known diabetes, a hemoglobin A1c value of 6.5% or greater indicates that they may have diabetes and this should be confirmed with a follow-up test. For someone with known diabetes, a value <7% indicates that their diabetes is well controlled and a value greater than or equal to 7% indicates suboptimal control. A1c targets should be individualized based on duration of diabetes, age, comorbid conditions, and other considerations. Currently, no consensus exists regarding use of hemoglobin A1c for diagnosis of diabetes for children. VITAMIN B12 (927) Reviewed date:08/30/2024 12:36:40 PM Interpretation: Performing Lab:SOC[facility]RO Tk20-Cartasite Tjro[address] [facility], [facility] RochesterDctfOX[address] Ajay Culver Notes/Report: NON-FASTING; NON-FASTING; NON-FASTING; NON-FASTING; NON-FAST VITAMIN B12 [phone] pg/mL TSH W/REFLEX TO FT4 (54550) Reviewed date:08/30/2024 12:36:40 PM Interpretation: Performing Lab:SOC[facility]RO Tk20-[address], [facility] RochesterQdvtKA[address] Ajay Culver Notes/Report: NON-FASTING; NON-FASTING; NON-FASTING; NON-FASTING; NON-FAST TSH W/REFLEX TO FT4 0.80 0.40-4.50 mIU/L TSH W/REFLEX TO FT4 (24426) Reviewed date:07/16/2024 10:06:22 AM Interpretation: Performing Lab:SOCORRO [address], [facility] RochesterDhuiGR[address] Ajay Culver Notes/Report: NON-FASTING; NON-FASTING; NON-FASTING; NON-FASTING; NON-FAST TSH W/REFLEX TO FT4 0.86 0.40-4.50 mIU/L Medications Medication SIG (Take, Route, Frequency, Duration) Notes Start Date End Date Status Lantus 100 unit/mL INJECT 40 UNITS SUBCUTANEOUSLY [...] times a day; Duration: 90 days Active Acetaminophen 500 MG 1 tablet orally every 6 hours as needed for pain or fever 04/06/2021 Active Omeprazole 40 MG 1 cap(s) orally once a day; Duration: 90 days Active Calcium 600 + D 600 MG-20 MCG 1 TAB(S) ORALLY 2 TIMES A DAY; Duration: 30 DAY(S) *Please review and pick correct strength-formulat ion from Contently options. If intended option is not shown, discontinue and re-order from Quick Search* Active Ozempic (2 MG/DOSE) 8 MG/3ML INJECT 2 MG SUBCUTANEOUSLY ONCE WEEKLY; Duration: 28 Active Multivitamin - 1 tab(s) orally once a day Active tiZANidine HCl 2 MG 1 tablet Orally twice a day; Duration: 30 days 09/30/2024 Active Advair HFA 115 MCG-21 MCG 2 INH INHALED 2 TIMES A DAY *Please review and pick correct strength-formulat ion from Contently options. If intended option is not shown, discontinue and re-order from Quick Search* Active Potassium Chloride ER 10 mEq TAKE TWO CAPSULES BY MOUTH TWICE DAILY; Duration: 30 Active HumaLOG KwikPen 100 UNIT/ML 4 units subcutaneously 3 times a day with meals 09/28/2023 Active Prodigy No Coding Blood Gluc - TEST FOUR TIMES A DAY; Duration: 75 Active Magnesium Oxide 400 MG 1 tab(s) [...] or diarrhea; Duration: 10 days 07/26/2021 Active Promethazine HCl 12.5 MG 1 tablet as needed Orally every 8 hours; Duration: 5 days As needed nausea. 10/09/2024 Active Levothyroxine Sodium 50 MCG 1 tab(s) [...] TABLET BY MOUTH ONCE A DAY Active Immunizations Vaccine Route Administration Date Status Comme nts Flublok IM Intramuscular 02/14/2020 Administered Flublok IM Intramuscular 01/31/2022 Administered Flublok IM Intramuscular 12/28/2023 Administered FLUZONE 6MO - OLDER IM Intramuscular 01/25/2023 Administer ed Influenza (Fluzone)--Medicare only IM Intramuscular 02/04/2015 Administered Influenza (Fluzone)--Medicare only IM Intramuscular 01/04/2016 Administered Influenza (Fluzone)--Medicare only IM Intramuscular 12/21/2016 Administered Influenza (Fluzone)--Medicare only IM Intramuscular 12/11/2017 Administered Pneumovax 23 IM Intramuscular 12/21/2016 Administered Prevnar PCV-20 (Pneumococcal conjugate 20) IM Intramuscular 11/28/2022 Administered RSV Unknown 02/20/2023 Administered SHINGRIX Unknown 06/22/2020 Administered SHINGRIX IM Intramuscular 11/28/2022 Administered Social History Tobacco Use: Social History Observation Description Date Details (start date - stop date) Former Smoker NA - NA Smoking: Question Answer Notes Are you a: former smoker How long has it been since you last smoked? 1-5 years Section Notes: stopped smoking 2015, smoked 42 years on average around 1/2 ppd stopped smoking 2015, smoked 42 years on average around 1/2 ppd stopped smoking 2015, smoked 42 years on average around 1/2 ppd stopped smoking 2015, smoked 42 years on average around 1/2 ppd stopped smoking 2015, smoked 42 years on average around 1/2 ppd stopped smoking 2015, smoked 42 years on average around 1/2 ppd stopped smoking 2015, smoked 42 years on average around 1/2 ppd stopped smoking 2015, smoked 42 years on average around 1/2 ppd stopped smoking 2015, smoked 42 years on average around 1/2 ppd stopped smoking 2015, smoked 42 years on average around 1/2 ppd stopped smoking 2015, smoked 42 years on average around 1/2 ppd stopped smoking 2015, smoked 42 years on average around 1/2 ppd stopped smoking 2015, smoked 42 years on average around 1/2 ppd stopped smoking 2015, smoked 42 years on average around 1/2 ppd Problems Problem Type SNOMED Code ICD Code Onset Dates Problem Status W/U Status Risk Notes Problem Information temporarily unavailable 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) Active confirmed Problem Information temporarily unavailable Type 2 diabetes mellitus with other specified complication (E11.69) Active confirmed Problem Information temporarily unavailable Moderate protein-calorie malnutrition (E44.0) Active confirmed Problem Information temporarily unavailable Unspecified protein-calorie malnutrition (E46) Active confirmed Problem Information temporarily unavailable Morbid (severe) obesity due to excess calories (E66.01) Active confirmed Problem Information temporarily unavailable Hyperlipidemia, unspecified (E78.5) Active confirmed Problem Information temporarily unavailable Other disorders of plasma-protein metabolism, 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) Active confirmed Problem Information temporarily unavailable Essential (primary) hypertension (I10) Active confirmed Problem Information temporarily unavailable Chronic respiratory failure with hypoxia (J96.11) Active confirmed Problem Information temporarily unavailable Esophagitis, unspecified (K20.9) Active confirmed Problem Information temporarily unavailable House's esophagus without dysplasia (K22.70) Active confirmed Problem Information temporarily unavailable Ventral hernia without obstruction or gangrene (K43.9) Active confirmed Problem Information temporarily unavailable Unspecified cirrhosis of liver (K74.60) Active confirmed Problem Information temporarily unavailable Nonalcoholic steatohepatitis (FULLER) (K75.81) Active confirmed Problem Information temporarily unavailable Pressure ulcer of sacral region, stage 1 (L89.151) Active confirmed Problem Information temporarily unavailable COPD with exacerbation (J44.1) Active confirmed Problem Information temporarily unavailable Hypothyroidism (E03.9) Active confirmed Problem Information temporarily unavailable Viral URI (J06.9) Active confirmed Problem Information temporarily unavailable Asthma with COPD (J44.9) Active confirmed Problem Information temporarily unavailable Dental decay (K02.9) Active confirmed Problem Information temporarily unavailable Asthma (J45.909) Active confirmed Problem Information temporarily unavailable Hyponatremia (E87.1) Active confirmed Problem Information temporarily unavailable RLS (restless legs syndrome) (G25.81) Active confirmed Problem Information temporarily unavailable BMI 33.0-33.9,adult (Z68.33) Active confirmed Problem Information temporarily unavailable USP (current) use of insulin (Z79.4) Active confirmed Problem Information temporarily unavailable Other chronic pain (G89.29) Active confirmed Problem Information temporarily unavailable BMI 39.0-39.9,adult (Z68.39) Active confirmed Problem Information temporarily unavailable 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) Active confirmed Problem Information temporarily unavailable Postherpetic neuralgia (B02.29) Active confirmed Problem Information temporarily unavailable Nocturnal hypoxia (G47.34) Active confirmed Problem Information temporarily unavailable Type 2 diabetes mellitus with hyperlipidemia (E11.69) Active confirmed Problem Information temporarily unavailable Type 2 diabetes mellitus without complication (E11.9) Active confirmed Problem Information temporarily unavailable Obstructive sleep apnea (G47.33) Active confirmed Problem Information temporarily unavailable BMI 37.0-37.9, adult (Z68.37) Active confirmed Problem Information temporarily unavailable Hypothyroidism, unspecified type (E03.9) Active confirmed Problem Information temporarily unavailable Body mass index (BMI) of 50-59.9 in adult (Z68.43) Active confirmed Problem Information temporarily unavailable Anasarca (R60.1) Active confirmed Problem Information temporarily unavailable Diabetic retinopathy associated with type 2 diabetes mellitus, macular edema presence unspecified, unspecified retinopathy severity (E11.319) Active confirmed Problem Information temporarily unavailable Chronic constipation (K59.09) Active confirmed Problem Information temporarily unavailable Chronic nausea (R11.0) Active confirmed Problem Information temporarily unavailable Healthcare maintenance (Z00.00) Active confirmed Problem Information temporarily unavailable Irritable bowel syndrome with both constipation and diarrhea (K58.2) Active confirmed Problem Information temporarily unavailable Controlled type 2 diabetes mellitus without complication, without long-term current use of insulin (E11.9) Active confirmed Problem Information temporarily unavailable Physical debility (R53.81) Active confirmed Problem Information temporarily unavailable History of CHF (congestive heart failure) (Z86.79) Active confirmed Problem Information temporarily unavailable Peripheral neuropathic pain (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) Active confirmed Problem Information temporarily unavailable Congestive heart failure, unspecified HF chronicity, unspecified heart failure type (I50.9) Active confirmed Problem Information temporarily unavailable Other hyperlipidemia (E78.49) Active confirmed Problem Information temporarily unavailable Breast cancer screening by mammogram (Z12.31) Active confirmed Problem Information temporarily unavailable Acute on chronic diastolic CHF (congestive heart failure) (I50.33) Active confirmed Problem Information temporarily unavailable Hepatic cirrhosis, unspecified hepatic cirrhosis type, unspecified whether ascites present (K74.60) Active confirmed Problem Information temporarily unavailable Body mass index [BMI] 38.0-38.9, adult (Z68.38) Active confirmed Problem Information temporarily unavailable Liver disease (K76.9) Active confirmed Problem Information temporarily unavailable Hemochromatosis, unspecified hemochromatosis type (E83.119) Active confirmed Problem Information temporarily unavailable Rectus diastasis (M62.08) Active confirmed Vital Signs Heart Rate 86 /min 10/17/2024 86 Temperature 97.7 degrees Fahrenheit 10/17/2024 86 Blood pressure diastolic 60 mm Hg 10/17/2024 86 Height 62 in 10/17/2024 86 Blood pressure systolic 88 mm Hg 10/17/2024 86 Weight 172.4 lbs 10/17/2024 86 BMI 31.53 kg/m2 10/17/2024 86 Encounters Encounter Location Date Provider Diagnosis [facility] [address] [place] [address] 07/20/2024 Provider Migration [facility] [address] [place] [address] 10/09/2024 Wendy Cortez Lower abdominal pain R10.30 and Viral gastroenteritis A08.4 [facility] [address] [place] [address] 10/17/2024 Wendy Panence LUQ pain R10.12 and Nausea without vomiting R11.0 [facility] [address] [facility] [place] [address] 11/30/2023 Wendy Panence Otalgia, bilateral H92.03 and Bilateral impacted cerumen H61.23 [facility] [address] [place], [place] [address] 12/11/2023 Wendy Panence Type 2 diabetes mellitus with other specified complication E11.69 ; USP (current) use of insulin Z79.4 and Morbid (severe) obesity due to excess calories E66.01 [facility] [address] [place] [address] 12/28/2023 Wendy Payne Immunization(s) administered Z23 [facility] [address] [place] [address] 01/10/2024 Wendy Cortez Dysuria R30.0 and Ac gulkana cystitis without hematuria N30.00 [facility] [address] [place] [address] 01/18/2024 Wendy Payne Syncope and collapse R55 ; Supraclavicular fossa fullness R22.2 ; Type 2 diabetes mellitus with other specified complication E11.69 and USP (current) use of insulin Z79.4 [facility] [address] [place] [address] 03/12/2024 Wendy Payne Syncope and collapse R55 ; Medicare annual wellness visit, subsequent Z00.00 ; Type 2 diabetes mellitus with other specified complication E11.69 ; 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 ; Obstructive sleep apnea G47.33 ; Hypothyroidism E03.9 ; 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 ; Nonalcoholic steatohepatitis (FULLER) K75.81 ; RLS (restless legs syndrome) G25.81 ; BMI 33.0-33.9,adult Z68.33 ; Visit for screening mammogram Z12.31 and Asymptomatic postmenopausal state Z78.0 [facility] [address] [place] [address] 04/09/2024 Wendy Payne Weight loss R63.4 ; Pre-syncope R55 and Elevated serum creatinine R79.89 [facility] [address] [place] [address] 07/11/2024 Wendy Payne Type 2 diabetes mellitus with other specified complication E11.69 ; USP (current) use of insulin Z79.4 ; Hypothyroidism E03.9 ; Nonalcoholic steatohepatitis (FULLER) K75.81 ; Muscle spasm M62.838 ; RLS (restless legs syndrome) G25.81 and Peripheral neuropathic pain M79.2 [facility] [address] [place] [address] 08/28/2024 Wendy Niñoowell Myalgia, multiple si natalia M79.18 and Muscle cramping R25.2 [facility] [address] [place] [address] 09/30/2024 Wendy Payne Muscle cramping R25. 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 ; Hypothyroidism E03.9 ; Nonalcoholic steatohepatitis (FULLER) K75.81 ; RLS (restless legs syndrome) G25.81 and Peripheral neuropathic pain M79.2 [facility] [address] [place] [address] 02/09/2024 Clarence Besson Breast cancer screen ing by mammogram Z12.31 [facility] [address] [address] 02/24/2024 Clarence Besson [facility] [address] [place] [address] 02/29/2024 Wendy Kerry [facility] [address] [place] [address] 03/12/2024 Clarence Besson Syncope and collapse R55 [facility] [address] [place] [address] 03/18/2024 Wendy Kerry [facility] [address] [place] [address] 03/27/2024 Wendy Kerry [facility] [address] [place] [address] 04/02/2024 Clarence Besson [facility] [address] [place] [address] 05/21/2024 Clarence Besson [facility] [address] [place] [address] 08/20/2024 Wendy Kerry [facility] [address] [address] 09/16/2024 Clarence Ram Type 2 diabetes mellitus with other specified complication E11.69 [facility] [address] [place] [address] 10/01/2024 Wendy Payne Assessments Encounter Date Diagnosis (ICD Code) Assessment Notes Treatment Notes Treatment Clinical Notes Section Notes 11/30/2023 Otalgia, bilateral (ICD-10 - H92.03) no evidence of infection, TMs intact, monitor and hopefully will resolve following irrigation 11/30/2023 Bilateral impacted cerumen (ICD-10 - H61.23) 12/11/2023 Type 2 diabetes mellitus with other specified complication (ICD-10 - E11.69) reported glucose control is excellent, labs today as noted. no changes to medication recommended unless noted on lab results. 12/28/2023 Immunization(s) administered (ICD-10 - Z23) 01/10/2024 Acute cystitis without hematuria (ICD-10 - N30.00) Start antibiotic for presumed UTI based on symptoms/UA results as stated above. Will follow urine culture for growth and anti-microbial sensitivities. Encouraged patient to drink plenty of fluids & stay well hydrated. Discussed return precautions to clinic/ED including fever, vomiting, new worsening abdominal or back pain, or if symptoms do not improve in 1-2 days. Patient voices understanding and is agreeable to the plan of care above. 01/10/2024 Dysuria (ICD-10 - R30.0) 01/18/2024 Supraclavicular fossa fullness (ICD-10 - R22.2) 02/09/2024 Breast cancer screening by mammogram (ICD-10 - Z12.31) 01/18/2024 Syncope and collapse (ICD-10 - R55) No acute changes on EKG today. She reports history of similar symptoms in the past and no cause was found despite extensive workup and is hesitant to do this again...encourage d better hydration and monitoring of symptoms, encouraged to go to the ED if any recurrence. Labs today as noted and if unremarkable would recommend additional workup. 03/12/2024 Syncope and collapse (ICD-10 - R55) ED workup negative. Recommend decrease bumex and spironolactone to just once per day while undergoing additional workup 03/12/2024 Syncope and collapse (ICD-10 - R55) 04/09/2024 Weight loss (ICD-10 - R63.4) 04/09/2024 Pre-syncope (ICD-10 - R55) Holter, echo, carotid Dopplers all without significant abnormalities. She reports improvement in symptoms. Again encouraged consistent p.o. intake, especially fluids. If this becomes problematic we will decrease the dose of her GLP-1 inhibitor. Repeat labs today. Return precautions reviewed 03/12/2024 Medicare annual wellness visit, subsequent (ICD-10 - Z00.00) wellness updated as noted, update screenings as noted BP and glucose well controlled continue specialty FU as noted continue supplemental O2 at HS 07/11/2024 Type 2 diabetes mellitus with other specified complication (ICD-10 - E11.69) No changes recommended to medication regimen unless indicated on lab results, goal A1C < 7. Eye exam UTD. Good candidate for diabetic shoes due to her recurring edema, callus formation, neuropathic pain. 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 Patient takes potassium and other supplements but with her cramping and being on diuretics will check labs. Also checking inflam marker with CRP and a CK since she is on a statin. Prescribed methocarbamol for prn use and instructed patient to not drive while taking medication. I personally will review all labs once final. Patient voices understanding and agrees with the plan of care above. 08/28/2024 Myalgia, multiple sites (ICD-10 - M79.18) I personally will review all labs once final. 09/16/2024 Type 2 diabetes mellitus with other specified complication (ICD-10 - E11.69) 09/30/2024 Muscle cramping (ICD-10 - R25.2) lower extremities appear well perfused but if cramping continues would recommend LARRY's lower extremities. Continue good fluid intake and encoruaged regular stretching 10/09/2024 Viral gastroenteritis (ICD-10 - A08.4) 10/09/2024 Lower abdominal pain (ICD-10 - R10.30) 10/17/2024 Nausea without vomiting (ICD-10 - R11.0) 10/17/2024 LUQ pain (ICD-10 - R10.12) 09/30/2024 Type 2 diabetes mellitus with other specified complication (ICD-10 - E11.69) Recent labs were stable. goal A1C < 7. Eye exam UTD. Good candidate for diabetic shoes due to her recurring edema, callus formation, neuropathic pain. 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 Encouraged compliance with consistent carbohydrate diet, activity is much as tolerated and hopefully Ozempic will help as well. 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.4) 09/30/2024 Hypothyroidism (ICD-10 - E03.9) continue replacement 07/11/2024 Muscle spasm (ICD-10 - M62.838) 03/12/2024 Obstructive sleep apnea (ICD-10 - G47.33) continue supplemental O2 at HS, symptoms improved with weight loss and has declined CPAP to this point 03/12/2024 Hypothyroidism (ICD-10 - E03.9) continue replacement 07/11/2024 RLS (restless legs syndrome) (ICD-10 - G25.81) low dose gabapentin 09/30/2024 Nonalcoholic steatohepatitis (FULLER) (ICD-10 - K75.81) continue dietary and weight loss efforts 07/11/2024 Peripheral neuropathic pain (ICD-10 - M79.2) 09/30/2024 RLS (restless legs syndrome) (ICD-10 - G25.81) low dose gabapentin 03/12/2024 Asthma with COPD (ICD-10 - J44.9) [facility] Pulmonology following 03/12/2024 Nonalcoholic steatohepatitis (FULLER) (ICD-10 - K75.81) continue dietary and weight loss efforts 09/30/2024 Peripheral neuropathic pain (ICD-10 - M79.2) 03/12/2024 RLS (restless legs syndrome) (ICD-10 - G25.81) improved on low dose gabapentin 03/12/2024 BMI 33.0-33.9,adult (ICD-10 - Z68.33) improving steadily over the past year 03/12/2024 Visit for screening mammogram (ICD-10 - Z12.31) 03/12/2024 Asymptomatic postmenopausal state (ICD-10 - Z78.0) 03/12/2024 Other [employer] material was published Plan Of Treatment Pending Test Test Name Order Date Physical Therapy 07/15/2009 Physical Therapy 08/11/2014 Physical Therapy 06/20/2017 Mammogram : Bilateral 04/02/2020 Mammogram : Bilateral 02/09/2024 Mammogram : Bilateral 09/19/2016 Over Night Pulse Oximetry 11/15/2019 Dietary Consult 05/21/2014 C-CBC 08/11/2020 C-CMP 08/11/2020 C-HEPATITIS PANEL 08/11/2020 C-THYROID PROFILE 08/11/2020 C-AMMONIA 08/11/2020 C-HGBA1C 08/11/2020 C-BNP 08/11/2020 Pulmonary Function Test- Complete 2019 M-Complete Blood Count Auto Diff 024 M-Complete Blood Count Auto Diff 019 M-Complete Blood Count Auto Diff 025 M-Comprehensive Metabolic Panel 10/18/19 25 M-Basic Metabolic Panel 09/20/2018 M-Amylase 10/17/2024 M-Lipase 10/17/2024 IRON, TIBC AND FERRITIN PANEL (5616) 12/2023 COMPREHENSIVE METABOLIC PANEL (38374) BASIC METABOLIC PANEL (47999) 07/25/2023 VITAMIN D,25-OH,TOTAL,IA (20394) 025 Future Test Test Name Order Date C-BASIC METABOLIC 01/22/2016 H-CBC with AUTO DIFF 07/16/2016 H-CMP 07/16/2016 H-LIPID PANEL 07/16/2016 H-HGBA1C 07/16/2016 H-SED RATE 07/16/2016 C-CMP 09/20/2016 C-LIPID PANEL 09/20/2016 C-HGBA1C 09/20/2016 Next Appt Details Provider Name:Wendy Chahal ce, 11/11/2024 10:00:00 AM, [address], [place], [address], Insurance Providers Payer Name Payer Address Payer Phone Subscriber Number Group Number Insured Name Patient Relationship to Insured Coverage Start Date Coverage End Date [employer] DUAL [address] [address] [place] [address] [id number] Luh Bosch Self - patient is the insured Medications Administered Medication Instructions Date of Administration Dosage Notes Dexamethasone 4mg Injection 06/14/2022 4 mg Triamcinolone Acetonide 40mg Injection 06/09/2020 1 mL Kenalog 07/24/2014 .5 mL Medical (General) History Medical History History ICD Code IDDM arthritis Hyperlipidemia GERD hypertension anxiety migraine headache Crohn's asthma degenerative disc disease house's esophagus EGD May 2018 with junct ional esophagitis/gastritis with some intestinal metaplasia Sleep study with WILEY noted in 06/05 Diabetic retinopathy Liver Cirrhosis Normal mammogram 02/06 Hypothyroidism Orthostatic Hypertension Surgical History Surgery Date(Month/Year) cholecystectomy repair left hand fx total hysterectomy colonoscopy-benign polyp laser surgery-lt eye 12/2014 laser surgery-rt eye 03/2015 laser surgery-rt eye 05/2015 eye injections for macular swelling RGD 05/2018 Heart Cath 08/2018 Cataract with implant x 2 05/2023 Hospitalization History Reason Date(Month/Year) [facility]-hypokelemia 10/2019 [facility] - cirrhosis and complications 2020 [facility] - hyponatremia, anasarca 08/2020 [facility]-chest pains 08/2018 [facility]- colitis, hypokalemia 05/2018 bowel obstruction 01/2016 abd pain/bowel obstruction chest pains
[2024-10-17 13:29] LABS: Hematocrit 43.8 % (37.0-47.0); Hemoglobin 14.2 g/dL (12.2-16.2); Immature Granulocytes % 0.5 %; Mean Corpuscular HGB Conc 32.4 g/dL (31.8-35.4); Mean Corpuscular Hemoglobin 28.0 pg (27.0-31.2); Mean Corpuscular Volume 86.2 fl (81-99); Nucleated Red Blood Cells % 0 %; Platelet Count 373 K/mm3 (142-424); Red Blood Count 5.08 M/mm3 (4.20-5.40); Red Cell Distribution Width-SD 45.0 fL; White Blood Count 9.4 K/mm3 (4.8-10.8)
[2024-10-17 14:30] LABS: Alanine Aminotransferase 19 U/L (12-78); Albumin Level 3.8 g/dl (3.5-5.0); Albumin/Globulin Ratio 1.3 (1.1-1.8); Alkaline Phosphatase 84 U/L (38-126); Amylase 81 U/L (30-110); Anion Gap 13.6 mEq/L (5-15); Aspartate Amino Transferase 23 U/L (14-36); Bilirubin,Total 0.5 mg/dl (0.2-1.3); Blood Urea Nitrogen 17 mg/dl (7-17); Calcium 8.8 mg/dl (8.4-10.2); Carbon Dioxide 25 mmol/L (22.0-30.0); Chloride 100 mmol/L (98-107); Creatinine,Serum 1.00 mg/dl (0.52-1.04); Estimated Glomerular Filt Rate 56 ml/min (>60); GFR (African American) 68 ML/MIN (>60); Globulin 2.9 g/dL (1.3-3.2); Glucose 125 mg/dl (74-100); Lipase 210 U/L (23-300); Potassium 4.6 mmoL/L (3.5-5.1); Sodium 134 mmol/L (136-145); Total Protein,Serum 6.7 g/dl (6.3-8.2)
== END 2024-10-17 23:59 | disposition home or self-care (01) ==
LOC: LAB 13:10
PROVIDERS: PCP Nurse Practitioner Family; Visit Provider Nurse Practitioner Family
DX: R10.12 Left upper quadrant pain (principal); R11.0 Nausea
CPT/HCPCS: 36415; 80053; 82150; 83690; 85025

== ENCOUNTER 2024-12-04 12:46 | Outpatient (CLI) | payer MEDICARE, MEDICAID, SELFPAY ==
--- OUTSIDE RECORDS SUMMARY | 2024-10-09 07:00 | XMS_ITS ---
Author Organization [facility] D [place] Address [address] [place] [address] Care Team Providers Care Senior Net Architect Name Role Phone Clarence Ram Primary Care Provider Damaris Cortezah Unavailable [phone] Allergies Allergen (clinical drug ingredient) Drug/Non Drug Allergy documented on EMR Reaction Allergy Type Onset Date Status Fish FISH (uncoded) Unknown Allergy Activ e hydromorphone Dilaudid Unknown Drug Allergy Act caro morphine Morphine Unknown Drug Allergy Active Penicillin Unknown Drug Allergy Active Results Component Value Reference Range Notes Urinalysis Reviewed date:10/09/2024 12:36:57 PM Interpretation: Performing Lab: Notes/Report: Color/Clarity yellow Leuk neg Nitrite neg Urobili 0.2 Protein 100 pH 5.5 Blood trace Sp. Gr. 1.025 Ketone neg Bili neg Glucose neg CULTURE, URINE, ROUTINE (395 ) Reviewed date:10/14/2024 02:50:35 PM Interpretation: Performing Lab:CB, [facility] [id number] [id number] Ajay Culver Notes/Report: CULTURE, URINE, ROUTINE SEE NOTE CULTURE, URINE, ROUTINE Micro Number: [id number] Test Status: Final Specimen Source: Urine Specimen Quality: Adequate Result: Non-uropathogenic Gram positive organism May represent colonizers from external and internal genitalia. No further testing (including susceptibility) will be performed. REASON FOR VISIT stomach pain, nausea, diarrhea, dizziness Medications Medication SIG (Take, Route, Frequency, Duration) Notes Start Date End Date Status tiZANidine HCl 2 MG 1 tablet Orally twice a day; Duration: 30 days 09/30/2024 Active Ozempic (2 MG/DOSE) 8 MG/3ML INJECT 2 MG SUBCUTANEOUSLY ONCE WEEKLY; Duration: 28 Active Omeprazole 40 MG 1 cap(s) orally once a day; Duration: 90 days Active HumaLOG KwikPen 100 UNIT/ML 4 units subcutaneously 3 times a day with meals 09/28/2023 Active Potassium Chloride ER 10 mEq TAKE TWO CAPSULES BY MOUTH TWICE DAILY; Duration: 30 Active Lantus 100 unit/mL INJECT 40 UNITS SUBCUTANEOUSLY ONCE A DAY; Duration: 25 Active Prodigy No Coding Blood Gluc - TEST FOUR TIMES A DAY; Duration: 75 Active Farxiga 10 MG 1 tab(s) orally once a day; Duration: 90 days Active MIDODRINE HYDROCHLORIDE 10 MG 1 TAB(S) ORALLY 3 TIMES A DAY NEEDED; Duration: 90 DAYS prn *Please review for potential replacement for e-prescription and drug interaction check* Active Gabapentin 100 mg TAKE 2 CAPSULES BY MOUTH 2 TIMES A DAY; Duration: 30 08/12/2024 Active Montelukast Sodium 10 MG 1 tab(s) orally once a day; Duration: 90 days Active Spironolactone 25 MG 2 tabs orally once a day; Duration: 90 days Active Levothyroxine Sodium 50 MCG 1 tab(s) orally once a day; Duration: 90 days Active Bumetanide 1 MG 1 tab(s) orally 2 times a day; Duration: 90 days Active Atorvastatin Calcium 40 MG 1 tab(s) orally once a day; Duration: 90 days Active Senna Plus 8.6-50 MG 1 tablet orally 2 times a day as needed for constipation; Duration: 30 days Active Magnesium Oxide 400 MG 1 tab(s) orally once a day; Duration: 30 day(s) Active Aspirin Low Dose 81 MG TAKE ONE TABLET BY MOUTH ONCE A DAY Active Cetirizine HCl 10 MG 1 tab(s) orally onc e a day; Duration: 30 days Active Diclofenac Sodium 1 % 2 grams applied topically 4 times a day to knees and prn; Duration: 30 days 04/06/2021 Active Multivitamin - 1 tab(s) orally once a day Active Calcium 600 + D 600 MG-20 MCG 1 TAB(S) ORALLY 2 TIMES A DAY; Duration: 30 DAY(S) *Please review and pick correct strength-formulat ion from [employer] options. If intended option is not shown, discontinue and re-order from Quick Search* Active Acetaminophen 500 MG 1 tablet orally every 6 hours as needed for pain or fever 04/06/2021 Active Dicyclomine HCl 20 MG 1 tab(s) orally every 6 hours as needed for stomach cramping or diarrhea; Duration: 10 days 07/26/2021 Active Famotidine 20 MG 1 tab(s) orally once a day (at bedtime); Duration: 90 days Active Advair HFA 115 MCG-21 MCG 2 INH INHALED 2 TIMES A DAY *Please review and pick correct strength-formulat ion from [employer] options. If intended option is not shown, discontinue and re-order from Quick Search* Active Promethazine HCl 12.5 MG 1 tablet as needed Orally every 8 hours; Duration: 5 days As needed nausea. 10/09/2024 Active Vital Signs Temperature 97.6 degrees Fahrenheit 10/10/19 25 Blood pressure systolic 122 mm Hg 10/10/19 25 Blood pressure diastolic 76 mm Hg 025 Heart Rate 88 /min 10/09/2024 Height 62 in 10/09/2024 Weight 174 lbs 10/09/2024 BMI 31.82 kg/m2 10/09/2024 Encounters Encounter Location Date Provider Diagnosis [facility] [place] [address] [facility] [address] [place] [address] 10/09/2024 Wendy Cortez Lower abdominal pain R10.30 and Viral gastroenteritis A08.4 Assessments Encounter Date Diagnosis (ICD Code) Assessment Notes Treatment Notes Treatment Clinical Notes Section Notes 10/09/2024 Lower abdominal pain (ICD-10 - R10.30) UA not concerning for UTI. Will culture and not treat with antibiotic unless culture is positive. I personally will review final culture results. 10/09/2024 Viral gastroenteritis (ICD-10 - A08.4) Reassurance. Discussed usual viral etiology and self-limiting condition. Encouraged BRAT diet and clear fluids. Monitor for evidence of significant dehydration and notify of any blood or mucus in stool. Avoid juice and anti-diarrheal agents. Use Tylenol as needed for fevers. May return to school when fever and vomiting have resolved for 24 hours. Discussed return precautions to clinic vs ED. Patient and family voice understanding. Plan Of Treatment Medication Medication Name Sig Start Date Stop Date Notes Promethazine HCl 12.5 MG 1 tablet as nee ded Orally every 8 hours; Duration: 5 days 10/09/2024 Treatment Notes Assessment Notes Lower abdominal pain UA not concerning f or UTI. Will culture and not treat with antibiotic unless culture is positive. I personally will review final culture results. Viral gastroenteritis Reassurance. Discu ssed usual viral etiology and self- limiting condition. Encouraged BRAT diet and clear fluids. Monitor for evidence of significant dehydration and notify of any blood or mucus in stool. Avoid juice and anti-diarrheal agents. Use Tylenol as needed for fevers. May return to school when fever and vomiting have resolved for 24 hours. Discussed return precautions to clinic vs ED. Patient and family voice understanding. Next Appt Details Follow Up: prn, Reason: Provider Name:Wendy Panreynold ce, 02/10/2025 09:30:00 AM, [address] [facility] [address] [facility], [address], [place], [address], Progress Notes * Luh BOSCHDOB:1960 ( 63 yo F)Acc No.[id number]:10/09/2024 Progress Notes Patient: Luh COSTA Provider: ANALISA Madera :1960 A ge:63 Y S ex:Female Date:10/09/2024 Address:[address] [place] [address], [address] Pcp:Clarence Ram Subjective: * Chief Complaints: * 1 . Stomach pain, nausea, diarrhea, dizziness. * HPI: g en: Patient presents with 3-4 bouts of loose stool, nausea, diffuse lower abdominal pain starting 4 days ago. She reports having associated dizziness with this illness. She has associated diffuse abdominal cramping. She has diffuse lower abdominal pain. She denies fevers, new unique foods, recent travel outside , bright red blood per rectum, vomiting, cami hematuria, back pain, o r dysuria. She has a decreased appetite, but is drinking fluids normally. No known sick contacts. * ROS: A LLERGY: no R unny nose. R ESPIRATORY: no S hortness of breath. n o C ough. ? C ONSTITUTIONAL: no L oss of appetite. n o F ever. D ERMATOLOGY: no R abe. E NT: no C ough. n o S ore throat. G ASTROENTEROLOGY: Nausea y es. n o V omiting. A bdominal pain?yes. D iarrhea y es. n o C onstipation. n o B lood in stool. ? 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 * Medications: T aking Advair HFA 115 MCG-21 MCG AEROSOL 2 INH INHALED 2 TIMES A DAY , Notes to Pharmacist: *Please review and pick correct strength-formulation from [employer] options. If intended option is not shown, discontinue and re-order from Quick Search*, Taking Multivitamin - Tablet 1 tab(s) orally once a day , Taking Calcium 600 + D 600 MG-20 MCG TABLET 1 TAB(S) ORALLY 2 TIMES A DAY , Notes to Pharmacist: *Please review and pick correct strength-formulation from [employer] options. If intended option is not shown, [...] for e-prescription and drug interaction check*, Taking Gabapentin 100 mg Capsule TAKE 2 CAPSULES BY MOUTH 2 TIMES A DAY , Taking Farxiga 10 MG Tablet 1 tab(s) orally once a day , Taking Lantus 100 unit/mL Solution INJECT 40 UNITS SUBCUTANEOUSLY ONCE A DAY , Taking Prodigy No Coding Blood Gluc - Strip TEST FOUR TIMES A DAY , Taking HumaLOG KwikPen 100 UNIT/ML Solution Pen-injector 4 units subcutaneously 3 times a day with meals , Taking Potassium Chloride ER 10 mEq Capsule Extended Release TAKE TWO CAPSULES BY MOUTH TWICE DAILY , Taking tiZANidine HCl 2 MG Tablet 1 tablet Orally twice a day , Taking Ozempic (2 MG/DOSE) 8 MG/3ML Solution Pen-injector INJECT 2 MG SUBCUTANEOUSLY ONCE WEEKLY , Taking Omeprazole 40 MG Capsule Delayed Release 1 cap(s) orally once a day , Medication List reviewed and reconciled with the patient * Allergies: M orphine, Penicillin, Dilaudid, FISH. Objective: * Vitals: N urse: be, Pain: 6, Temp: 97.6, RR: 18, HR: 88, BP: 122/76, Ht: 62, Wt: 174, BMI:31.82. * Examination: G eneral Examination: General P leasant and Cooperative, NAD. Oral cavity: M oist membranes. Chest: n ormal shape and expansion. Heart: R RR, No m/r/g, No edema,. HEENT: p harynx and tonsils normal, TM's normal. Lungs: L ungs clear, No wheezes, crackles or rhonchi, Good air movement,. Abdomen: S oft, non-tender, normal bowel sounds, no guarding, no rebound tenderness, neg McBurney's, neg Keller's, No organomegaly or peritoneal signs.. Neurologic Exam: C N I-XII intact, No focal neurological deficits, equal electric meter inspector strength in hands bilaterally, moving all extremities equally, normal lower leg strength bilaterally, equal dorsi and plantarflexion bilaterally. Skin: w ithout acute rashes. Back: n o CVA tenderness,. neck s upple, n o lymphadenopathy,. Psych N ormal Mood/Affect. Assessment: * Assessment: 1. V iral gastroenteritis - A08.4 (Primary) 2 . L ower abdominal pain - R10.30 Plan: * Treatment: 2. L ower abdominal pain L AB: CULTURE, URINE, ROUTINE (395) (Collection Date & Time - 10/09/2024 11:51 AM) Value Reference Range C ULTURE SEE NOTE - * Wendy Cortez 10/14/2024 08:54:35 AM EDT > Urine culture without overt bacterial growth. Contaminated with normal skin cells. No UTI. If patient is still having symptoms, have her return to clinic for evaluation. Will you please call and inform?Sam Arzate 10/14/2024 02:50:27 PM EDT > pt notifed ?LAB: Urinalysis (Collection Date & Time - 10/09/2024)* Value Reference Range C olor/Clarity yellow * L euk neg * N itrite neg * U robili 0.2 * P rotein 100 * p H 5.5 * B lood trace * S p. Gr. 1.025 * K etone neg * B olga lidia neg * G lucose neg * Yomaira Garcia 10/10/19 11:45:14 AM EDT >Wendy Cortez 10/09/2024 12:36:53 PM EDT > Notes: UA not concerning for UTI. Will culture and not treat with antibiotic unless culture is positive. I personally will review final culture results.?? * Procedure Codes: 8 1002 URINALYSIS, Modifiers: QW * Follow Up: p rn * * Sign off status: Completed true * Provider: ANALISA Mad[place] Date: 0 10/09/2024 Generated for Tomasa alarcon/Christian/eTkristiansmitting on: 0 12/04/2024 12:51 PM EDT History and Physical Notes * HPI (History of Present Illness) Category Sub-Category Detail Notes Category Not es gen Patient present s with 3-4 bouts of loose stool, nausea, diffuse lower abdominal pain starting 4 days ago. She reports having associated dizziness with this illness. She has associated diffuse abdominal cramping. She has diffuse lower abdominal pain. She denies fevers, new unique foods, recent travel outside [place], bright red blood per rectum, vomiting, cami hematuria, back pain, or dysuria. She has a decreased appetite, but is drinking fluids normally. No known sick contacts. Examination Category Sub-Category Detail Notes Category Not es General Examination HEENT: pharynx and tonsils normal, TM's normal Heart: RRR, No m/r/g, No ed evaristo, Lungs: Lungs clear, No whee zes, crackles or rhonchi, Good air movement, Abdomen: Soft, non-tender, no rmal bowel sounds, no guarding, no rebound tenderness, neg McBurney's, neg Keller's, No organomegaly or peritoneal signs. Skin: without acute rashes Neurologic Exam: CN I-XII intact, No focal neurological deficits, equal electric meter inspector strength in hands bilaterally, moving all extremities equally, normal lower leg strength bilaterally, equal dorsi and plantarflexion bilaterally Oral cavity: Moist membranes Back: no CVA tenderness, Chest: normal shape and exp ansion neck supple, no lymphaden opathy, General Pleasant and Coopera tive, NAD Psych Normal Mood/Affect
--- OUTSIDE RECORDS SUMMARY | 2024-10-17 08:45 | XMS_ITS ---
Author Organization [facility] Address [address] [place] [address] Care Team Providers Care Sustainable Design Consultant Name Role Phone Clarence Ram Primary Care Provider [phone] Wendy Payne [phone] Allergies Allergen (clinical drug ingredient) Drug/Non Drug Allergy documented on EMR Reaction Allergy Type Onset Date Status Fish FISH (uncoded) Unknown Allergy Activ e hydromorphone Dilaudid Unknown Drug Allergy Act caro morphine Morphine Unknown Drug Allergy Active Penicillin Unknown Drug Allergy Active Results Component Value Reference Range Notes M-Complete Blood Count Auto Diff Reviewed date:11/04/2024 06:13:14 PM Interpretation: Performing Lab: Notes/Report: WBC 9.4 4.8-10.8 K/mm3 RBC 5.08 4.20-5.40 M/mm3 HGB 14.2 12.2-16.2 g/dL HCT 43.8 37.0-47.0 % MCV 86.2 81-99 fl MCH 28.0 27.0-31.2 pg MCHC 32.4 31.8-35.4 g/dL RDW 14.3 11.5-17.5 % PLT 373 142-424 K/mm3 MPV 9.6 7.4-10.4 fl NE% 63.4 37.0-80.0 % LY% 25.1 10-50 % MO% 8.2 1.7-9.3 % EO% 2.2 0.1-12.0 % BA% 0.6 0.1-2.0 % NE# 6.0 1.8-7.8 K/mm3 LY# 2.4 0.7-4.5 K/mm3 MO# 0.8 0.1-1.0 K/mm3 EO# 0.2 0.0-0.4 Kmm3 BA# 0.1 0-0.2 K/mm3 RDW-SD 45.0 NRBC% 0 IG% 0.5 NRBC# 0 IG# 0.05 M-Comprehensive Metabolic Pa carlos Reviewed date:11/04/2024 06:13:29 PM Interpretation: Performing Lab: Notes/Report: NA 134 136-145 mmol/L K 4.6 3.5-5.1 mmoL/L CL 100 98-107 mmol/L CO2 25 22.0-30.0 mmol/L GAP 13.6 5-15 mEq/L BUN 17 7-17 mg/dl CREATT 1.00 0.52-1.04 mg/dl GFRAA 68 >60 ML/MIN EGFR 56 >60 ml/min GLU 125 74-100 mg/dl CA 8.8 8.4-10.2 mg/dl BILIT 0.5 0.2-1.3 mg/dl AST 23 14-36 U/L ALT 19 12-78 U/L TP 6.7 6.3-8.2 g/dl ALB 3.8 3.5-5.0 g/dl GLOB 2.9 1.3-3.2 g/dL AGRATIO 1.3 1.1-1.8 ALP 84 38-126 U/L M-Amylase Reviewed date:11/04/2024 06:13:19 PM Interpretation: Performing Lab: Notes/Report: NEEL 81 30-110 U/L M-Lipase Reviewed date:11/04/2024 06:13:23 PM Interpretation: Performing Lab: Notes/Report: LIP 210 23-300 U/L REASON FOR VISIT Stomach pains, diarrhea- Been going on about a week and a half. Afraid she has pancreatitis. Medications Medication SIG (Take, Route, Frequency, Duration) Notes Start Date End Date Status Omeprazole 40 MG 1 cap(s) orally once a day; Duration: 90 days Active tiZANidine HCl 2 MG 1 tablet Orally twice a day; Duration: 30 days 09/30/2024 Active Potassium Chloride ER 10 mEq TAKE TWO CAPSULES BY MOUTH TWICE DAILY; Duration: 30 Active Promethazine HCl 12.5 MG 1 tablet as needed Orally every 8 hours; Duration: 5 days As needed nausea. 10/09/2024 Active HumaLOG KwikPen 100 UNIT/ML 4 units subcutaneously 3 times a day with meals 09/28/2023 Active Prodigy No Coding Blood Gluc - TEST FOUR TIMES A DAY; Duration: 75 Active Lantus 100 unit/mL INJECT 40 UNITS SUBCUTANEOUSLY ONCE A DAY; Duration: 25 Active Farxiga 10 MG 1 tab(s) orally once a day; Duration: 90 days Active Gabapentin 100 mg TAKE 2 CAPSULES BY MOUTH 2 TIMES A DAY; Duration: 30 08/12/2024 Active Levothyroxine Sodium 50 MCG 1 tab(s) [...] TABLET BY MOUTH ONCE A DAY Active Magnesium Oxide 400 MG 1 tab(s) orally once a day; Duration: 30 day(s) Active Senna Plus 8.6-50 MG 1 tablet orally 2 times a day as needed for constipation; Duration: 30 days Active Diclofenac Sodium 1 % 2 grams applied topically 4 times a day to knees and prn; Duration: 30 days 04/06/2021 Active Acetaminophen 500 MG 1 tablet orally every 6 hours as needed for pain or fever 04/06/2021 Active Calcium 600 + D 600 MG-20 MCG 1 TAB(S) ORALLY 2 TIMES A DAY; Duration: 30 DAY(S) *Please review and pick correct strength-formulat ion from Xenith options. If intended option is not shown, discontinue and re-order from Quick Search* Active Cetirizine HCl 10 MG 1 tab(s) orally onc e a day; Duration: 30 days Active Famotidine 20 MG 1 tab(s) orally once a day (at bedtime); Duration: 90 days Active Dicyclomine HCl 20 MG 1 tab(s) orally every 6 hours as needed for stomach cramping or diarrhea; Duration: 10 days 07/26/2021 Active Multivitamin - 1 tab(s) orally once a day Active Advair HFA 115 MCG-21 MCG 2 INH INHALED 2 TIMES A DAY *Please review and pick correct strength-formulat ion from Xenith options. If intended option is not shown, discontinue and re-order from Quick Search* Active Vital Signs Temperature 97.7 degrees Fahrenheit 10/18/19 25 Blood pressure systolic 88 mm Hg 10/18/19 25 Blood pressure diastolic 60 mm Hg 025 Heart Rate 86 /min 10/17/2024 Height 62 in 10/17/2024 Weight 172.4 lbs 10/17/2024 BMI 31.53 kg/m2 10/17/2024 86 Encounters Encounter Location Date Provider Diagnosis [facility] [place] [address] [facility] [address] [place] [address] 10/17/2024 Wendy Panence LUQ pain R10.12 and Nausea without vomiting R11.0 Assessments Encounter Date Diagnosis (ICD Code) Assessment Notes Treatment Notes Treatment Clinical Notes Section Notes 10/17/2024 LUQ pain (ICD-10 - R10.12) She is certainly high risk for pancreatitis given her diabetes and use of a GLP-1 inhibitor. Recommend labs as noted and encouraged her to hold her Ozempic until symptoms are completely resolved. 10/17/2024 Nausea without vomiting (ICD-10 - R11.0) Plan Of Treatment Medication Medication Name Sig Start Date Stop Date Notes Ozempic (2 MG/DOSE) 8 MG/3ML INJECT 2 MG SUBCUTANEOUSLY ONCE WEEKLY Next Appt Details Follow Up: prn, Reason: Provider Name:Wendy shrestha, 02/10/2025 09:30:00 AM, [address], [address], [place], [address], Progress Notes * Nereyda BOSCH:1960 ( 63 yo F)Acc No.[id number]:10/17/2024 Progress Notes Patient: Luh COSTA Provider: COBY Busby :1960 A ge:63 Y S ex:Female Date:10/17/2024 Address:[address] [place], [id number] Pcp:Clarence Ram Subjective: * Chief Complaints: * 1 . Stomach pains, diarrhea- Been going on about a week and a half. Afraid she has pancreatitis.. * HPI: G astroenterology: 63-year-old female with history of obesity and type 2 diabetes on Ozempic presents with 1 to 2 weeks of persistent abdominal pain with nausea. Also with loose stool, no blood or fevers. No emesis. No improvement with antiemetics or dietary restriction. Does have remote history of pancreatitis. 63 year old female presents with c/o abdominal pain. c/o nausea. c/o diarrhea. Denies : vomiting. D enies : constipation. D enies : fever. D enies : blood in stool. * ROS: C ONSTITUTIONAL: Loss of appetite y es. n o F ever. n o W eakness. D ERMATOLOGY: no R abe. G ASTROENTEROLOGY: See HPI Y es. U ROLOGY: Reviewed, No Symptoms Reported: Y [...] cap(s) orally once a day , Taking Promethazine HCl 12.5 MG Tablet 1 tablet as needed Orally every 8 hours As needed nausea., Medication List reviewed and reconciled with the patient * Allergies: M orphine, Penicillin, Dilaudid, FISH. Objective: * Vitals: N urse: KJ, Pain: 3 stomach, Temp: 97.7, RR: 18, HR: 86, BP: 88/60, Ht: 62, Wt: 172.4, BMI:31.53. 86. * Examination: G eneral Examination: General P leasant and Cooperative, NAD on RA,. Oral cavity: M oist membranes. Heart: R egular Rate and Rhythm, no murmur, rubs or gallops. Lungs: c lear to auscultation,. Abdomen: s oft, mildly tender LUQ, ND, BS present. ? Assessment: * Assessment: 1. L UQ pain - R10.12 (Primary) 2 . N ausea without vomiting - R11.0 ? Plan: * Treatment: Value Reference Range W enio Blood Count 9.4 4.8-10.8 - K/mm3 * R ed Blood Count 5.08 4.20-5.40 - M/mm3 * H emoglobin 14.2 12.2-16.2 - g/dL * H ematocrit 43.8 37.0-47.0 - % * M yonathan Corpuscular Volume 86.2 81-99 - fl * M yonathan Corpuscular Hemoglobin 28.0 27.0-31.2 - p g * M yonathan Corpuscular HGB Conc 32.4 31.8-35.4 - g/d L * R ed Cell Distribution Width 14.3 11.5-17.5 - % * P latelet Count 373 142-424 - K/mm3 * M yonathan Platelet Volume 9.6 7.4-10.4 - fl * N eutrophils % 63.4 37.0-80.0 - % * L ymphocytes % 25.1 10-50 - % * M onocytes % 8.2 1.7-9.3 - % * E osinophils % 2.2 0.1-12.0 - % * B asophils % 0.6 0.1-2.0 - % * N eutrophils # 6.0 1.8-7.8 - K/mm3 * L ymphocytes # 2.4 0.7-4.5 - K/mm3 * M onocytes # 0.8 0.1-1.0 - K/mm3 * E osinophils # 0.2 0.0-0.4 - Kmm3 * B asophils # 0.1 0-0.2 - K/mm3 * This lab was reviewed by Damaris Payne on 11/04/2024 at 18:13 PM EDT ?LAB: M-Comprehensive Metabolic Panel* Value Reference Range S odium 134 L 136-145 - mmol/L * P otassium 4.6 3.5-5.1 - mmoL/L * C hloride 100 98-107 - mmol/L * C arbon Dioxide 25 22.0-30.0 - mmol/L * A nion Gap 13.6 5-15 - mEq/L * B lood Urea Nitrogen 17 7-17 - mg/dl * C reatinine,Serum 1.00 0.52-1.04 - mg/dl * G FR () 68 >60 - ML/MIN * E stimated Glomerular Filt Rate 56 L >60 - ml/m in * G lucose 125 H 74-100 - mg/dl * C alcium 8.8 8.4-10.2 - mg/dl * B ilirubin,Total 0.5 0.2-1.3 - mg/dl * A spartate Amino Transferase 23 14-36 - U/L * A lanine Aminotransferase 19 12-78 - U/L * T otal Protein,Serum 6.7 6.3-8.2 - g/dl * A lbumin Level 3.8 3.5-5.0 - g/dl * G lobulin 2.9 1.3-3.2 - g/dL * A lbumin/Globulin Ratio 1.3 1.1-1.8 - * A lkaline Phosphatase 84 38-126 - U/L * This lab was reviewed by Damaris Payne on 11/04/2024 at 18:13 PM EDT ?LAB: M-Amylase* Value Reference Range A mylase 81 30-110 - U/L * This lab was reviewed by Damaris Payne on 11/04/2024 at 18:13 PM EDT ?LAB: M-Lipase* Value Reference Range L ipase 210 23-300 - U/L * This lab was reviewed by Damaris Payne on 11/04/2024 at 18:13 PM EDT Clinical Notes: She is certainly high risk for pancreatitis given her diabetes and use of a GLP-1 inhibitor. Recommend labs as noted and encouraged her to hold her Ozempic until symptoms are completely resolved.??2.?Nausea without vomiting?LAB: M-Complete Blood Count Auto Diff* Value Reference Range W enio Blood Count 9.4 4.8-10.8 - K/mm3 * R ed Blood Count 5.08 4.20-5.40 - M/mm3 * H emoglobin 14.2 12.2-16.2 - g/dL * H ematocrit 43.8 37.0-47.0 - % * M yonathan Corpuscular Volume 86.2 81-99 - fl * M yonathan Corpuscular Hemoglobin 28.0 27.0-31.2 - p g * M yonathan Corpuscular HGB Conc 32.4 31.8-35.4 - g/d L * R ed Cell Distribution Width 14.3 11.5-17.5 - % * P latelet Count 373 142-424 - K/mm3 * M yonathan Platelet Volume 9.6 7.4-10.4 - fl * N eutrophils % 63.4 37.0-80.0 - % * L ymphocytes % 25.1 10-50 - % * M onocytes % 8.2 1.7-9.3 - % * E osinophils % 2.2 0.1-12.0 - % * B asophils % 0.6 0.1-2.0 - % * N eutrophils # 6.0 1.8-7.8 - K/mm3 * L ymphocytes # 2.4 0.7-4.5 - K/mm3 * M onocytes # 0.8 0.1-1.0 - K/mm3 * E osinophils # 0.2 0.0-0.4 - Kmm3 * B asophils # 0.1 0-0.2 - K/mm3 * This lab was reviewed by Damaris Payne on 11/04/2024 at 18:13 PM EDT ?LAB: M-Comprehensive Metabolic Panel* Value Reference Range S odium 134 L 136-145 - mmol/L * P otassium 4.6 3.5-5.1 - mmoL/L * C hloride 100 98-107 - mmol/L * C arbon Dioxide 25 22.0-30.0 - mmol/L * A nion Gap 13.6 5-15 - mEq/L * B lood Urea Nitrogen 17 7-17 - mg/dl * C reatinine,Serum 1.00 0.52-1.04 - mg/dl * G FR () 68 >60 - ML/MIN * E stimated Glomerular Filt Rate 56 L >60 - ml/m in * G lucose 125 H 74-100 - mg/dl * C alcium 8.8 8.4-10.2 - mg/dl * B ilirubin,Total 0.5 0.2-1.3 - mg/dl * A spartate Amino Transferase 23 14-36 - U/L * A lanine Aminotransferase 19 12-78 - U/L * T otal Protein,Serum 6.7 6.3-8.2 - g/dl * A lbumin Level 3.8 3.5-5.0 - g/dl * G lobulin 2.9 1.3-3.2 - g/dL * A lbumin/Globulin Ratio 1.3 1.1-1.8 - * A lkaline Phosphatase 84 38-126 - U/L * This lab was reviewed by Damaris Payne on 11/04/2024 at 18:13 PM EDT ?LAB: M-Amylase* Value Reference Range A mylase 81 30-110 - U/L * This lab was reviewed by Damaris Payne on 11/04/2024 at 18:13 PM EDT ?LAB: M-Lipase* Value Reference Range L ipase 210 23-300 - U/L * This lab was reviewed by Damaris Payne on 11/04/2024 at 18:13 PM EDT * Follow Up: p rn * * Sign off status: Completed true * Provider: COBY Busby Date: 0 10/17/2024 Generated for Tomasa alarcon/Christian/Alie on: 0 12/04/2024 12:50 PM EDT History and Physical Notes * HPI (History of Present Illness) Category Sub-Category Detail Notes Category Not es Gastroenterology fever vomiting abdominal pain diarrhea blood in stool nausea constipation Examination Category Sub-Category Detail Notes Category Not es General Examination Heart: Regular Rate and Rhythm, no murmur, rubs or gallops Lungs: clear to auscultatio n, Abdomen: soft, mildly tender LUQ, ND, BS present Oral cavity: Moist membranes General Pleasant and Coopera tive, NAD on RA,
--- OUTSIDE RECORDS SUMMARY | 2024-11-08 08:14 | XMS_ITS | Encounter Summary ---
Author Organization Healthcare Address [address] [place] [address] Care Team Providers Care Gas Plant Operator Name Role Phone Clarence Ram MD Primary Care Provider [phone] Reason for Referral * Imaging (Routine) - Closed Specialty Diagnoses / Procedures Referred By Danilo joseph Referred To Contact Radiology Diagnoses Excessive and redundant skin and subcutaneous tissue Procedures CT Abdomen Pelvis wo IV Contrast Tiago Noguera MD [address] [address] Phone: tel: fax: Referral ID Status Reason Start Date Expiration Date Visits Re quested Visits Authorized [id number] Closed 08/22/2024 02/21/2026 1 1 Reason for Visit * Imaging (Routine) - Closed Specialty Diagnoses / Procedures Referred By Danilo joseph Referred To Contact Radiology Diagnoses Excessive and redundant skin and subcutaneous tissue Procedures CT Abdomen Pelvis wo IV Contrast Tiago Noguera MD [address] [address] Phone: tel: fax: Referral ID Status Reason Start Date Expiration Date Visits Re quested Visits Authorized [id number] Closed 08/22/2024 02/21/2026 1 1 Encounter Details Date Type Department Care Team (Latest Contact Info) Description 11/08/2024 8:14 AM EDT - 11/08/2024 11:59 PM EDT Hospital Encounter [facility] [address] [place] [address] Excessive and redundant skin and subcutaneous tissue Discharge Disposition: Home or Self Care Social History Tobacco Use Types Packs/Day Years [...] on file documented as of this encounter Medications at Time of Discharge famotidine (Pepcid) 20 MG tablet 1 tab(s) orally once a day (at bedtime) for 90 days Farxiga 10 MG tablet Take 1 tablet by mouth Daily. fluticasone (Flovent HFA) 110 MCG/ACT inhaler 07/15/2013 fluticasone-nehemias meterol (Advair HFA) 115-21 MCG/ACT inhaler every 12 hours. gabapentin (Neurontin) 100 MG capsule every 12 hours. 01/31/2024 HumaLOG KWIKPEN 100 UNIT/ML injection pen 4 units subcutaneously 3 times a day with meals for 30 days 09/28/2023 Lantus 100 UNIT/ML injection vial 1 (one) time each day at the same time. 09/04/2023 levothyroxine (Synthroid, Levoxyl) 50 MCG tablet Take 1 tablet by mouth Daily. midodrine (Proamatine) 10 MG tablet 1 TAB(S) ORALLY 3 TIMES A DAY NEEDED for 90 DAYS montelukast (Singulair) 10 MG tablet Take 1 tablet by mouth Daily. documented as of this encounter Miscellaneous Notes * Vitaly Lee - 11/08/2024 8:54 AM EDT Images from the original note were not included. 1639 Caring for Yourself after Contrast Imaging If you had ORAL contrast: ? You can go back to your normal diet and activities as tolerated. ? Drink plenty of fluids, unless told otherwise. If you had IV contrast: ? You can go back to your normal diet and activities as tolerated. ? Drink plenty of fluids, unless told otherwise. ? Leave a bandage on the site for 30 minutes (where the IV was inserted or blood was drawn). If you had Intravesical (bladder) contrast: ? Return to normal diet and activity. What you need to know about delayed reaction to IV contrast What is IV Contrast? ? Contrast is a dye that is put into your body through an IV. ? It is used for imaging scans such as CT scans and MRIs. ? The contrast makes blood vessels, organs and other parts of your body show up better on the scan. What do I need to do after IV contrast? ? Drink lots of fluids. This will help flush the contrast out of your system. ? Drink 2-3 extra glasses or bottles of water within 4 hours of your scan. What is a contrast reaction? ? A contrast reaction is a bad side effect from the contrast dye. ? It is rare but it does happen. ? They can be mild - such as sneezing, itching, or hives. ? They can be severe - such as trouble breathing, throat swelling, and irregular heart beat. When do these reactions happen? ? They often happen right after the contrast is injected. ? Some happen hours after going home. Go to the nearest Emergency Department right away if you have any of these symptoms after you leavethe clinic or hospital. ? Sneezing ? Itching in your mouth, throat, eyes, ears, or skin ? Rash or hives ? Throwing up or stomach sickness ? High heart rate or ?racing? of your heart ? Feeling dizzy or woozy ? Feeling short of breath or like you can?t take a deep breath ? Feeling very anxious for no other reason It is very important that these reactions be treated. Tell the doctor or nurse that you are having a reaction to IV contrast dye. Do not ignore any sign of a reaction! All reactions must be assessed by a doctor. Call 911 if you are alone and your reaction is more than mild sneezing or itching. If you have a mild reaction, call to speak with a Radiologist, explain that you havehad a contrast reaction, as this needs to be added to your medical record. documented in this encounter Plan of Treatment Not on file documented as of this encounter Procedures Procedure Name Priority Date/Time Associated Diagnosis Comments CT ABDOMEN PELVIS WO IV CONTRAST Routine 11/08/2024 8:56 AM EDT Excessive and redundant skin and subcutaneous tissue documented in this encounter Results * CT Abdomen Pelvis wo IV Contrast (11/08/2024 8:56 AM EDT) Anatomical Region Laterality Modality Abdomen, Pelvis Computed Tomogra phy Impressions 11/08/2024 9:26 AM EDT A small fat-containing umbilical hernia. CRITICAL RESULT: No. COMMUNICATION: Per this written report. Drafted by Terry Valenzuela MD on 11/08/2024 9:24 AM Final report signed by Terry Valenzuela MD on 11/08/2024 9:26 AM Narrative 11/08/2024 9:26 AM EDT CLINICAL INDICATION: abdominal hernia r/o prior to body contouring surgery TECHNIQUE: Multiple axial CT images were obtained from lung bases through pubic symphysis without the administration of IV contrast. Reformatted images in the coronal and sagittal planes were generated from the axial data set to facilitate diagnostic accuracy. Total DLP (Dose-Length Product): 954.87 mGy.cm. Please note: The reported value represents the total of one or more individual components during the CT acquisition on this date and at this time, and as such, the same value may appear in more than one CT report depending on the interpreting/reporting physicians. COMPARISON: None. FINDINGS: Lower Chest: No suspicious findings. Analysis of the abdominopelvic viscera is limited by the absence of intravenous contrast material. Solid Abdominal Organs: Normal liver, no focal lesions. Status post cholecystectomy. No biliary obstruction. Normal pancreas, spleen, right kidney and adrenal glands. There is an approximately 3.2 cm simple cyst in the left kidney. No renal tract calcifications. No hydronephrosis. GI Tract/Mesentery/Peritoneum: The large and small bowel appear normal in caliber. No evidence of inflammatory change. No suspicious peritoneal/mesenteric findings. Pelvic Viscera: No suspicious pelvic mass lesions. Lymph Nodes/Vasculature: No lymphadenopathy by CT size criteria. The aortoiliac vasculature is normal in caliber. Free Fluid: No ascites. Musculoskeletal and Body Wall: Small fat-containing umbilical hernia is identified (series 5 image 121). No aggressive bone abnormality. Procedure Note Terry Valenzuela MD - 11/08/2024 CLINICAL INDICATION: abdominal hernia r/o prior to body contouring surgery TECHNIQUE: Multiple axial CT images were obtained from lung bases through pubicsymphysis without the administration of IV contrast. Reformatted images inthe coronal and sagittal planes were generated from the axial data set tofacilitate diagnostic accuracy. Total DLP (Dose-Length Product): 954.87 mGy.cm. Please note: The reportedvalue represents the total of one or more individual components during theCT acquisition on this date and at this time, and as such, the same valuemay appear in more than one CT report depending on theinterpreting/reporting physicians. COMPARISON: None. FINDINGS: Lower Chest: No suspicious findings. Analysis of the abdominopelvic viscera is limited by the absence ofintravenous contrast material. Solid Abdominal Organs: Normal liver, no focal lesions. Status postcholecystectomy. No biliary obstruction. Normal pancreas, spleen, rightkidney and adrenal glands. There is an approximately 3.2 cm simple cyst inthe left kidney. No renal tract calcifications. No hydronephrosis. GI Tract/Mesentery/Peritoneum: The large and small bowel appear normal incaliber. No evidence of inflammatory change. No suspiciousperitoneal/mesenteric findings. Pelvic Viscera: No suspicious pelvic mass lesions. Lymph Nodes/Vasculature: No lymphadenopathy by CT size criteria. Theaortoiliac vasculature is normal in caliber. Free Fluid: No ascites. Musculoskeletal and Body Wall: Small fat-containing umbilical hernia isidentified (series 5 image 121). No aggressive bone abnormality. IMPRESSION: A small fat-containing umbilical hernia. CRITICAL RESULT: No. COMMUNICATION: Per this written report. Drafted by Terry Valenzuela MD on 11/08/2024 9:24 AM Final report signed by Terry Valenzueal MD on 11/08/2024 9:26 AM Tiago Noguera MD IMG CT PROCEDURES Final Resul t documented in this encounter Visit Diagnoses Diagnosis Excessive and redundant skin and subcutaneous tissue documented in this encounter Administered Medications Inactive Administered Medications - up to 3 most recent administrations Medication Order MAR Action Action Date Dose Rate Site iohexol (OMNIPaque) 9 MG/ML oral contrast 500 mL 500 mL, Oral, Once in imaging, 1 dose, Starting on Mon11/08/24 at 0816, Until Mon11/08/24 at 0821, Routine, Imaging Protocol Orders Given 11/08/2024 8:21 AM EDT 500 mL documented in this encounter Additional Health Concerns Assessment Noted Time A Body Mass Index follow-up plan has been documented for the patient 08/28/2024 2:16 PM EDT documented as of this encounter Care Teams Gas Plant Operator Relationship Specialty Start Date End Date Clarence Ram MD [address] [place] [address] PCP - General 08/28/20 documented as of this encounter
--- OUTSIDE RECORDS SUMMARY | 2024-11-11 06:00 | XMS_ITS ---
Author Organization [facility] Address [address] [place] [address] Care Team Providers Care Locum Tenens Hospitalist Name Role Phone Clarence Ram Primary Care Provider Wendy Payne [phone] Allergies Allergen (clinical drug ingredient) Drug/Non Drug Allergy documented on EMR Reaction Allergy Type Onset Date Status Fish FISH (uncoded) Unknown Allergy Activ e hydromorphone Dilaudid Unknown Drug Allergy Act caro morphine Morphine Unknown Drug Allergy Active Penicillin Unknown Drug Allergy Active REASON FOR VISIT 6 week follow up Medications Medication SIG (Take, Route, Frequency, Duration) Notes Start Date End Date Status HumaLOG KwikPen 100 UNIT/ML 4 units subcutaneously 3 times a day with meals 09/28/2023 Active Potassium Chloride ER 10 mEq TAKE TWO CAPSULES BY MOUTH TWICE DAILY; Duration: 30 Active tiZANidine HCl 2 mg TAKE 1 TABLET BY MOUTH 2 TIMES A DAY; Duration: 30 Active Omeprazole 40 MG 1 cap(s) orally once a day; Duration: 90 days Active Promethazine HCl 12.5 MG 1 tablet as needed Orally every 8 hours; Duration: 5 days As needed nausea. 10/09/2024 Active Lantus 100 unit/mL INJECT 40 UNITS SUBCUTANEOUSLY ONCE A DAY; Duration: 25 Active Prodigy No Coding Blood Gluc - TEST FOUR TIMES A DAY; Duration: 75 Active Gabapentin 100 mg TAKE 2 CAPSULES BY MOUTH 2 TIMES A DAY; Duration: 30 08/12/2024 Active Farxiga 10 MG 1 tab(s) orally once a day; Duration: 90 days Active MIDODRINE HYDROCHLORIDE 10 MG 1 TAB(S) ORALLY 3 TIMES A DAY NEEDED; Duration: 90 DAYS prn *Please review for potential replacement for e-prescription and drug interaction check* Active Atorvastatin Calcium 40 MG 1 tab(s) orally once a day; Duration: 90 days Active Levothyroxine Sodium 50 MCG 1 tab(s) orally once a day; Duration: 90 days Active Bumetanide 1 MG 1 tab(s) orally 2 times a day; Duration: 90 days Active Montelukast Sodium 10 MG 1 tab(s) orally once a day; Duration: 90 days Active Spironolactone 25 MG 2 tabs orally once a day; Duration: 90 days Active Aspirin Low Dose 81 MG TAKE ONE TABLET BY MOUTH ONCE A DAY Active Senna Plus 8.6-50 MG 1 tablet orally 2 times a day as needed for constipation; Duration: 30 days Active Magnesium Oxide 400 MG 1 tab(s) orally once a day; Duration: 30 day(s) Active Cetirizine HCl 10 MG 1 tab(s) [...] review and pick correct strength-formulat ion from [employer] options. If intended option is not shown, discontinue and re-order from Quick Search* Active Famotidine 20 MG 1 tab(s) orally once a day (at bedtime); Duration: 90 days Active Advair HFA 115 MCG-21 MCG 2 INH INHALED 2 TIMES A DAY *Please review and pick correct strength-formulat ion from [employer] options. If intended option is not shown, discontinue and re-order from Quick Search* Active Social History Tobacco Use: Social History Observation Description Date Details (start date - stop date) Former Smoker NA - NA Smoking: Question Answer Notes Are you a: former smoker How long has it been since you last smoked? 1-5 years Section Notes: stopped smoking 2015, smoked 42 years on average around 1/2 ppd Vital Signs Temperature 97.5 degrees Fahrenheit 11/12/19 25 Blood pressure systolic 98 mm Hg 11/12/19 25 Blood pressure diastolic 68 mm Hg 025 Heart Rate 88 /min 11/11/2024 Height 62 in 11/11/2024 Weight 176 lbs 11/11/2024 BMI 32.19 kg/m2 11/11/2024 Encounters Encounter Location Date Provider Diagnosis [facility] [address] [place] [address] 11/11/2024 Wendy Payne Muscle cramping R25. 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.4 and Contusion of lesser toe of right foot without damage to nail, initial encounter S90.121A Assessments Encounter Date Diagnosis (ICD Code) Assessment Notes Treatment Notes Treatment Clinical Notes Section Notes 11/11/2024 Muscle cramping (ICD-10 - R25.2) lower extremities appear well perfused and symptoms are improved, no changes recommended 11/11/2024 Type 2 diabetes mellitus with other specified complication (ICD-10 - E11.69) Recent labs were stable, continue current regimen, labs again in 3 months 11/11/2024 [facility] (current) use of insulin (ICD-10 - Z79.4) 11/11/2024 Contusion of lesser toe of right foot without damage to nail, initial encounter (ICD-10 - S90.121A) skin intact, discussed rest/ice and monitor for complications Plan Of Treatment Next Appt Details Follow Up: 3 Months, Reason: Provider Name:Wendy shrestha, 02/10/2025 09:30:00 AM, [address] [facility], [address], [place], [address], Progress Notes * Luh BOSCHDOB:1960 ( 63 yo F)Acc No.[id number]:11/11/2024 Progress Notes Patient: Luh COSTA Provider: COBY Busby :1960 A ge:63 Y S ex:Female Date:11/11/2024 Address:[address], [id number] Pcp:Clarence Ram Subjective: * Chief Complaints: * 1 . 6 week follow up. * HPI: g en: Presents today for 6 week FU regarding muscle spasms in her lower extremities. Last visit we discussed better hydration and also transitioned from methocarbamol to tizanidine as needed. She reports doing much better overall and had not had any spasms until this past Monday but had also spent that day in the heat and up on her feet for longer than usual. She feels well otherwise. Recent abdominal symptoms have completely resolved and she has resumed her Ozempic without difficulty. Reports her blood sugars have been good. No presyncopal events. * ROS: R ESPIRATORY: Reviewed, No Symptoms Reported: Y es. C ARDIOLOGY: Dizziness y es, W orse when standing from sitting. L eg edema y es, i mproving with RX. D ERMATOLOGY: Reviewed, No Symptoms Reported: Y es. E NDOCRINOLOGY: no S leep disturbance. D iabetes y es. ? G ASTROENTEROLOGY: Reviewed, No Symptoms Reported: Y es. * [...] [facility]- colitis, hypokalemia 05/2018, [facility]-chest pains 08/2018, [facility]-hypokelemia 10/2019, H - hyponatremia, anasarca 08/2020, [facility] - cirrhosis [...] *Please review and pick correct strength-formulation from [employer] options. If intended option is not shown, discontinue and re-order from Quick Search*, Taking Multivitamin - Tablet 1 tab(s) orally once a day , Taking Calcium 600 + D 600 MG-20 MCG TABLET 1 TAB(S) ORALLY 2 TIMES A DAY , Notes to Pharmacist: *Please review and pick correct strength-formulation from [employer] options. If intended option is not shown, [...] CAPSULES BY MOUTH TWICE DAILY , Taking Omeprazole 40 MG Capsule Delayed Release 1 cap(s) orally once a day , Taking Promethazine HCl 12.5 MG Tablet 1 tablet as needed Orally every 8 hours As needed nausea., Taking tiZANidine HCl 2 mg Tablet TAKE 1 TABLET BY MOUTH 2 TIMES A DAY , Medication List reviewed and reconciled with the patient * Allergies: M orphine, Penicillin, Dilaudid, FISH. Objective: * Vitals: N urse: KJ, Pain: 0, Temp: 97.5, RR: 18, HR: 88, BP: 98/68, Ht: 62, Wt: 176, BMI:32.19. * Examination: G eneral Examination: General P leasant and Cooperative, NAD on RA,. Heart: R egular Rate and Rhythm, no murmur, rubs or gallops. Lungs: c lear to auscultation,. Skin: w ithout acute rashes. Peripheral pulses: d iminished, bilaterally symetrical. 1+ pp. Extremities: r ight 5th toe with erythema, swelling, ecchymosis which extends to the base of the 4th toe as well, v aricose veins, mild callus formation bilat heels. neck s upple,, no thyromegaly,, no lymphadenopathy,. Psych N ormal Mood/Affect. Assessment: * Assessment: 1. M uscle cramping - R25.2 (Primary) 2 . T ype 2 diabetes mellitus with other specified complication - E11.69 3 . L roby term (current) use of insulin - Z79.4 4 . C ontusion of lesser toe of right foot without damage to nail, initial encounter - S90.121A Plan: * Treatment: 2. T ype 2 diabetes mellitus with other specified complication Clinical Notes: Recent labs were stable, continue current regimen, labs again in 3 months ? 3. C ontusion of lesser toe of right foot without damage to nail, initial encounter Clinical Notes: skin intact, discussed rest/ice and monitor for complications * Follow Up: 3 Months * * Sign off status: Completed true * Provider: COBY Busby Date: 0 11/11/2024 Generated for Tomasa alarcon/Christian/eTmanpreetitting on: 0 12/04/2024 12:50 PM EDT History and Physical Notes * Examination Category Sub-Category Detail Notes Category Not es General Examination Heart: Regular Rate and Rhythm, no murmur, rubs or gallops Lungs: clear to auscultatio n, Extremities: right 5th toe with e rythema, swelling, ecchymosis which extends to the base of the 4th toe as well, varicose veins, mild callus formation bilat heels Skin: without acute rashes Peripheral pulses: diminished, bilatera lly symetrical. 1+ pp neck supple,, no thyromeg marsha,, no lymphadenopathy, General Pleasant and Coopera tive, NAD on RA, Psych Normal Mood/Affect
--- NOTE | 2024-12-04 12:49 | XR_ITS ---
FINAL REPORT CLINICAL HISTORY: right foot/5th toe injury COMPARISON: 02/01/2022 FINDINGS: RIGHT FOOT 3 views of the right foot were obtained. There is a mildly displaced transverse fractures of the base of the 5th distal phalanx, new since the previous exam. No intra-articular extension is noted. Visualized joint spaces are normally aligned. Soft tissues are unremarkable. IMPRESSION: 5th distal phalanx fracture. Reviewed, Interpreted and Dictated by Arsh Tim MD Transcribed by Margo Banegas Authenticated and [facility]
--- OUTSIDE RECORDS SUMMARY | 2024-12-04 12:50 | XMS_ITS | Patient Health Record ---
Author Organization [facility] Address [address] [place] [address] Care Team Providers Care Quality Assurance Project Manager Name Role Phone YoClarence Primary Care Provider Wendy Payne Unavailable [phone] Wendy Cortez Unavailable [phone] Migration, Provider Unavailable Unavailable Allergies Allergen (clinical drug ingredient) Drug/Non Drug Allergy documented on EMR Reaction Allergy Type Onset Date Status Fish FISH (uncoded) Unknown Allergy Activ e hydromorphone Dilaudid Unknown Drug Allergy Act caro morphine Morphine Unknown Drug Allergy Active Penicillin Unknown Drug Allergy Active Results Component Value Reference Range Notes M-Amylase Reviewed date:11/04/2024 06:13:19 PM Interpretation: Performing Lab: Notes/Report: NEEL 81 30-110 U/L M-Lipase Reviewed date:11/04/2024 06:13:23 PM Interpretation: Performing Lab: Notes/Report: LIP 210 23-300 U/L Holter Monitor, 48 hour Reviewed date:03/27/2024 09:46:47 AM Interpretation: Performing Lab: Notes/Report: Mammogram: Screening Reviewed date:04/09/2024 08:32:39 AM Interpretation: Performing Lab: Notes/Report: Microalbumin (In-House) Reviewed date:03/12/2024 01:34:14 PM Interpretation:Normal Performing Lab: Notes/Report: Normal ALB 30mg CRE 100mg/dL A:C <30mg/g DEXA Hip and Spine - Screeni ng Reviewed date:03/27/2024 02:06:32 PM Interpretation: Performing Lab: Notes/Report: Urinalysis Reviewed date:10/09/2024 12:36:57 PM Interpretation: Performing Lab: Notes/Report: Color/Clarity yellow Leuk neg Nitrite neg Urobili 0.2 Protein 100 pH 5.5 Blood trace Sp. Gr. 1.025 Ketone neg Bili neg Glucose neg MAGNESIUM (622) Reviewed date:01/19/2024 10:24:45 AM Interpretation: Performing Lab:CB, [employer] [facility] [address], [facility] HospitalOwzwHA[address] Ajay Culver Notes/Report: NON-FASTING; NON-FASTING; NON-FASTING; NON-FASTING MAGNESIUM 2.0 1.5-2.5 mg/dL M-Complete Blood Count Auto Diff Reviewed date:11/04/2024 [...] 0 IG% 0.5 NRBC# 0 IG# 0.05 CBC (INCLUDES DIFF/PLT) (639 9) Reviewed date:01/19/2024 10:24:45 AM Interpretation: Performing Lab:[facility] Gsrj[address] [facility], [facility] CenterCsvhMI[address] Ajay Culver Notes/Report: NON-FASTING; NON-FASTING; NON-FASTING; NON-FASTING [...] MPV 11.0 7.5-12.5 fL ABSOLUTE NEUTROPHILS 3906 [phone] cells/uL ABSOLUTE LYMPHOCYTES 2270 850-3900 cells/uL ABSOLUTE MONOCYTES 526 200-950 cells/uL ABSOLUTE EOSINOPHILS 526 15-500 cells/uL ABSOLUTE BASOPHILS 73 0-200 cells/uL NEUTROPHILS 53.5 LYMPHOCYTES 31.1 MONOCYTES 7.2 EOSINOPHILS 7.2 BASOPHILS 1.0 HEMOGLOBIN A1c (496) Reviewed date:07/16/2024 10:06:22 AM Interpretation: Performing Lab:[facility] Vhxm5617 [facility], [facility] CenterDmmpLV[address] Ajay Culver Notes/Report: NON-FASTING; NON-FASTING; NON-FASTING; NON-FASTING; [...] A1c for diagnosis of diabetes for children. FERRITIN (457) Reviewed date:01/19/2024 01:44:28 PM Interpretation: Performing Lab:[facility] [address], [place] ZhwwSH[address] Ajay Culver Notes/Report: NON-FASTING; NON-FASTING; NON-FASTING; NON-FASTING FERRITIN 219 16-288 ng/mL TSH W/REFLEX TO FT4 (13983) Reviewed date:08/30/2024 12:36:40 PM Interpretation: Performing Lab:[facility] [address], [place] AlctLK[address] Ajay Culver Notes/Report: NON-FASTING; NON-FASTING; NON-FASTING; NON-FASTING; NON-FAST TSH W/REFLEX TO FT4 0.80 0.40-4.50 mIU/L TSH W/REFLEX TO FT4 (82388) Reviewed date:07/16/2024 10:06:22 AM Interpretation: Performing Lab:[facility] [address], [facility] ClinicBvhgRP[address] Ajay Culver Notes/Report: NON-FASTING; NON-FASTING; NON-FASTING; NON-FASTING; NON-FAST TSH W/REFLEX TO FT4 0.86 0.40-4.50 mIU/L CULTURE, URINE, ROUTINE (395 ) Reviewed date:10/14/2024 02:50:35 PM Interpretation: Performing Lab:[facility] [address], [facility] HospitalHueaNC[address] Ajay Culver Notes/Report: CULTURE, URINE, ROUTINE SEE NOTE CULTURE, URINE, ROUTINE Micro Number: [id number] Test Status: Final Specimen Source: Urine Specimen Quality: Adequate Result: Non-uropathogenic Gram positive organism May represent colonizers from external and internal genitalia. No further testing (including susceptibility) will be performed. CULTURE, URINE, ROUTINE (395 ) Reviewed date:01/12/2024 10:50:55 AM Interpretation: Performing Lab:[facility] [address], [place] TvbkDU[address] Ajay Culver Notes/Report: FASTING: UNKNOWN FASTING:UNKNOWN NON-FASTING CULTURE, URINE, ROUTINE SEE NOTE CULTURE, URINE, ROUTINE Micro Number: [id number] Test Status: Final Specimen Source: Urine Specimen Quality: Adequate Result: Mixed genital guadalupe isolated. These superficial bacteria are not indicative of a urinary tract infection. No further organism identification is warranted on this specimen. If clinically indicated, recollect clean-catch, mid-stream urine and transfer immediately to Urine Culture Transport Tube. M-Free T4 (Free Thyroxine) Reviewed date:04/11/2024 09:22:17 AM Interpretation: Performing Lab: Notes/Report: T4F 1.37 0.78-2.19 ng/dl M-Thyroid Stimulating Hormon e Reviewed date:04/11/2024 09:22:17 AM Interpretation: Performing Lab: Notes/Report: TSH 2.80 0.465-4.68 uIU/mL CREATINE KINASE, TOTAL (374) Reviewed date:08/30/2024 12:36:40 PM Interpretation: Performing Lab:[facility] ([employer])e1355 [facility] [place], CellceutixJabyRF[address] Ajay Culver Notes/Report: NON-FASTING; NON-FASTING; NON-FASTING; NON-FASTING; NON-FAST CREATINE KINASE, TOTAL 53 20-243 U/L CBC (INCLUDES DIFF/PLT) (639 9) Reviewed date:08/30/2024 12:36:40 PM Interpretation: Performing Lab:[facility] [address]sc[address], CellceutixCerkBV[address] Ajay Culver Notes/Report: NON-FASTING; NON-FASTING; NON-FASTING; NON-FASTING; [...] MPV 10.3 7.5-12.5 fL ABSOLUTE NEUTROPHILS [phone] cells/uL ABSOLUTE LYMPHOCYTES 1254 529-7536 cells/uL ABSOLUTE MONOCYTES 483 200-950 cells/uL ABSOLUTE EOSINOPHILS 163 15-500 cells/uL ABSOLUTE BASOPHILS 68 0-200 cells/uL NEUTROPHILS 60.6 LYMPHOCYTES 28.9 MONOCYTES 7.1 EOSINOPHILS 2.4 BASOPHILS 1.0 C-REACTIVE PROTEIN (4420) Reviewed date:08/30/2024 12:36:40 PM Interpretation: Performing Lab:[facility], [facility] [address], CellceutixDsrbJI[address] Ajay Culver Notes/Report: NON-FASTING; NON-FASTING; NON-FASTING; NON-FASTING; NON-FAST C-REACTIVE PROTEIN <3.0 <8.0 mg/L VITAMIN B12 (927) Reviewed date:08/30/2024 12:36:40 PM Interpretation: Performing Lab:[facility] [employer] Onlinee[address], CellceutixDybyKD[address] Ajay Culver Notes/Report: NON-FASTING; NON-FASTING; NON-FASTING; NON-FASTING; NON-FAST VITAMIN B12 877 804-2797 pg/mL CAROTID DUPLEX Reviewed date:03/27/2024 09:41:19 AM Interpretation: Performing Lab: Notes/Report: ECHOCARDIOGRAM Reviewed date:03/30/2024 03:03:15 PM Interpretation: Performing Lab: Notes/Report: LIPID PANEL, STANDARD (7600) Reviewed date:07/16/2024 10:06:22 AM Interpretation: Performing Lab:[facility] [address], [place] ([facility] [employer])BuitPN[address] Ajay Culver Notes/Report: NON-FASTING; NON-FASTING; NON-FASTING; NON-FASTING; [...] of LDL-C. Floyd SS et al. NURA. 2013;310(49): 8432-8548 (http://education.Revision Military.Avista/faq/NIV701) CHOL/HDLC RATIO 2.6 <5.0 (calc) NON HDL CHOLESTEROL 72 <130 mg/dL (calc) For patients with diabetes plus 1 major ASCVD risk factor, treating to a non-HDL-C goal of <100 mg/dL (LDL-C of <70 mg/dL) is considered a therapeutic option. COMPREHENSIVE METABOLIC PANE L (94644) Reviewed date:01/19/2024 10:24:45 AM Interpretation: Performing Lab:[facility] Hstry Vgiv[address] MadisoneIL[address] Ajay Culver Notes/Report: NON-FASTING; NON-FASTING; NON-FASTING; NON-FASTING [...] 13 10-35 U/L ALT 13 6-29 U/L COMPREHENSIVE METABOLIC PANE L (47955) Reviewed date:07/16/2024 10:06:22 AM Interpretation: Performing Lab:[facility] Hstry Cnxv8439 [facility], [facility] ClinicVqgfIA[address] Ajay Culver Notes/Report: NON-FASTING; NON-FASTING; NON-FASTING; NON-FASTING; [...] 16 10-35 U/L ALT 16 6-29 U/L COMPREHENSIVE METABOLIC PANE L (18094) Reviewed date:08/30/2024 12:36:40 PM Interpretation: Performing Lab:[facility] [employer] [facility] Hospitale1355 [facility], [facility] ClinicUmguEY[address] Ajay Culver Notes/Report: NON-FASTING; NON-FASTING; NON-FASTING; NON-FASTING; [...] 16 10-35 U/L ALT 17 6-29 U/L BASIC METABOLIC PANEL (19442 ) Reviewed date:12/13/2023 10:19:03 AM Interpretation: Performing Lab:[facility] ([employer])e1355 [facility] [place], [facility] ClinicXvfwRQ[address] Ajay Culver Notes/Report: NON-FASTING; NON-FASTING GLUCOSE 71 65-99 mg/dL Fasting reference interval UREA NITROGEN (BUN) 28 7-25 mg/dL CREATININE 1.11 0.50-1.05 mg/dL EGFR 56 > OR = 60 mL/min/1.73m2 BUN/CREATININE RATIO 25 6-22 (calc) SODIUM 140 135-146 mmol/L POTASSIUM 4.6 3.5-5.3 mmol/L CHLORIDE 102 98-110 mmol/L CARBON DIOXIDE 25 20-32 mmol/L CALCIUM 9.7 8.6-10.4 mg/dL MAGNESIUM (622) Reviewed date:08/30/2024 12:36:40 PM Interpretation: Performing Lab:SOC[facility] [employer]55 [facility] [place], [facility] ClinicNeyqBO[address] Ajay Culver Notes/Report: NON-FASTING; NON-FASTING; NON-FASTING; NON-FASTING; NON-FAST MAGNESIUM 2.2 1.5-2.5 mg/dL MAGNESIUM (622) Reviewed date:07/16/2024 10:06:22 AM Interpretation: Performing Lab:[facility] [employer]55 [facility] [place], [facility] ClinicHpgjKN[address] Ajay Culver Notes/Report: NON-FASTING; NON-FASTING; NON-FASTING; NON-FASTING; NON-FAST MAGNESIUM 2.2 1.5-2.5 mg/dL M-Basic Metabolic Panel Reviewed date:04/11/2024 09:22:17 AM Interpretation: Performing Lab: Notes/Report: NA 137 136-145 mmol/L K 4.6 3.5-5.1 mmoL/L CL 98 98-107 mmol/L CO2 31 22.0-30.0 mmol/L GAP 12.6 5-15 mEq/L BUN 34 7-17 mg/dl CREATT 1.10 0.52-1.04 mg/dl GFRAA 61 >60 ML/MIN EGFR 50 >60 ml/min GLU 107 74-100 mg/dl CA 9.8 8.4-10.2 mg/dl HEMOGLOBIN A1c (496) Reviewed date:12/13/2023 10:19:03 AM Interpretation: Performing Lab:[facility] Hospitale1355 [facility], [facility] ClinicFuecHJ[address] Ajay Culver Notes/Report: NON-FASTING; NON-FASTING HEMOGLOBIN A1c [...] change in test platforms from the [employer] to the Garrett edie c503 may have shifted HbA1c results compared to historical results. Based on laboratory validation testing conducted at [facility], the Garrett platform relative to the [employer] platform had an average increase in HbA1c value of < or = 0.3%. This difference is within accepted variability established by the National Glycohemoglobin Standardization Program. Note that not all individuals will have had a shift in their results and direct comparisons between historical and current results for testing conducted on different platforms is not recommended. CBC (INCLUDES DIFF/PLT) (639 9) Reviewed date:07/16/2024 10:06:22 AM Interpretation: Performing Lab:[facility] Njqk[address] [facility], [facility] ClinicAkhpVZ[address] Ajay Culver Notes/Report: NON-FASTING; NON-FASTING; NON-FASTING; NON-FASTING; [...] MPV 10.2 7.5-12.5 fL ABSOLUTE NEUTROPHILS [phone] cells/uL ABSOLUTE LYMPHOCYTES 7670 591-4562 cells/uL ABSOLUTE MONOCYTES 491 200-950 cells/uL ABSOLUTE EOSINOPHILS 218 15-500 cells/uL ABSOLUTE BASOPHILS 62 0-200 cells/uL NEUTROPHILS 68.7 LYMPHOCYTES 21.4 MONOCYTES 6.3 EOSINOPHILS 2.8 BASOPHILS 0.8 Urinalysis Reviewed date:01/10/2024 03:52:36 PM Interpretation: Performing Lab: Notes/Report: Color/Clarity yellow Leuk trace Nitrite neg Urobili 0.2 Protein neg pH 5.5 Blood neg Sp. Gr. 1.015 Ketone neg Bili neg Glucose 500 Ultrasound : Soft Tissue, Ne ck Reviewed date:01/25/2024 01:50:01 PM Interpretation: Performing Lab: Notes/Report: M-Comprehensive Metabolic Pa carlos Reviewed date:11/04/2024 06:13:29 [...] AGRATIO 1.3 1.1-1.8 ALP 84 38-126 U/L Medications Medication SIG (Take, Route, Frequency, Duration) Notes Start Date End Date Status HumaLOG KwikPen 100 UNIT/ML 4 units subcutaneously 3 times a day with meals 09/28/2023 Active Advair HFA 115 MCG-21 MCG 2 INH INHALED 2 TIMES A DAY *Please review and pick correct strength-formulat ion from orderbolt options. If intended option is not shown, discontinue and re-order from Quick Search* Active Potassium Chloride ER 10 mEq TAKE TWO CAPSULES BY MOUTH TWICE DAILY; Duration: 30 Active Lantus 100 unit/mL INJECT 40 UNITS SUBCUTANEOUSLY ONCE A DAY; Duration: 25 Active Prodigy No Coding Blood Gluc - TEST FOUR TIMES A DAY; Duration: 75 Active Acetaminophen 500 MG 1 tablet orally every 6 hours as needed for pain or fever 04/06/2021 Active tiZANidine HCl 2 mg TAKE 1 TABLET BY MOUTH 2 TIMES A DAY; Duration: 30 Active Dicyclomine HCl 20 MG 1 tab(s) orally every 6 hours as needed for stomach cramping or diarrhea; Duration: 10 days 07/26/2021 Active Multivitamin - 1 tab(s) orally once a day Active Omeprazole 40 MG 1 cap(s) orally once a day; Duration: 90 days Active Calcium 600 + D 600 MG-20 MCG 1 TAB(S) ORALLY 2 TIMES A DAY; Duration: 30 DAY(S) *Please review and pick correct strength-formulat ion from orderbolt options. If intended option is not shown, discontinue and re-order from Quick Search* Active Promethazine HCl 12.5 MG 1 tablet as needed Orally every 8 hours; Duration: 5 days As needed nausea. 10/09/2024 Active Famotidine 20 MG 1 tab(s) orally once a day (at bedtime); Duration: 90 days Active Gabapentin 100 mg TAKE 2 CAPSULES BY MOUTH 2 TIMES A DAY; Duration: 30 08/12/2024 Active Farxiga 10 MG 1 tab(s) orally once a day; Duration: 90 days Active MIDODRINE HYDROCHLORIDE 10 MG 1 TAB(S) ORALLY 3 TIMES A DAY NEEDED; Duration: 90 DAYS prn *Please review for potential replacement for e-prescription and drug interaction check* Active Aspirin Low Dose 81 MG TAKE ONE TABLET BY MOUTH ONCE A DAY Active Atorvastatin Calcium 40 MG 1 tab(s) orally once a day; Duration: 90 days Active Senna Plus 8.6-50 MG 1 tablet orally 2 times a day as needed for constipation; Duration: 30 days Active Magnesium Oxide 400 MG 1 tab(s) orally once a day; Duration: 30 day(s) Active Levothyroxine Sodium 50 MCG 1 tab(s) orally once a day; Duration: 90 days Active Bumetanide 1 MG 1 tab(s) orally 2 times a day; Duration: 90 days Active Montelukast Sodium 10 MG 1 tab(s) orally once a day; Duration: 90 days Active Spironolactone 25 MG 2 tabs orally once a day; Duration: 90 days Active Cetirizine HCl 10 MG 1 tab(s) orally onc e a day; Duration: 30 days Active Diclofenac Sodium 1 % 2 grams applied topically 4 times a day to knees and prn; Duration: 30 days 04/06/2021 Active Immunizations Vaccine Route Administration Date Status Comme nts SHINGRIX Unknown 06/22/2020 Administered SHINGRIX IM Intramuscular 11/28/2022 Administered RSV Unknown 02/20/2023 Administered Prevnar PCV-20 (Pneumococcal conjugate 20) IM Intramuscular 11/28/2022 Administered Pneumovax 23 IM Intramuscular 12/21/2016 Administered Influenza (Fluzone)--Medicare only IM Intramuscular 02/04/2015 Administered Influenza (Fluzone)--Medicare only IM Intramuscular 01/04/2016 Administered Influenza (Fluzone)--Medicare only IM Intramuscular 12/21/2016 Administered Influenza (Fluzone)--Medicare only IM Intramuscular 12/11/2017 Administered FLUZONE 6MO - OLDER IM Intramuscular 01/25/2023 Administer ed Flublok IM Intramuscular 02/14/2020 Administered Flublok IM Intramuscular 01/31/2022 Administered Flublok IM Intramuscular 12/28/2023 Administered Social History Tobacco Use: Social History [...] (Z68.33) Active confirmed Problem Information temporarily unavailable 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) Active confirmed Problem Information temporarily unavailable Other chronic pain (G89.29) Active confirmed Problem Information temporarily unavailable BMI 39.0-39.9,adult (Z68.39) Active confirmed Problem Information temporarily unavailable shelter (current) use of insulin (Z79.4) Active confirmed [...] (M62.08) Active confirmed Vital Signs Heart Rate 88 /min 11/11/2024 Temperature 97.5 degrees Fahrenheit 11/11/2024 Blood pressure diastolic 68 mm Hg 11/11/2024 Height 62 in 11/11/2024 Blood pressure systolic 98 mm Hg 11/11/2024 Weight 176 lbs 11/11/2024 BMI 32.19 kg/m2 11/11/2024 Encounters Encounter Location Date Provider Diagnosis [facility] [address] [facility] [address] [place], [place] [address] 07/20/2024 Provider Migration [facility] [place] [address] [facility] [address] [place], [place] [address] 12/11/2023 Wendy Kerry Type 2 diabetes mellitus with other specified complication E11.69 ; 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 and Morbid (severe) obesity due to excess calories E66.01 [facility] [place] [address] [facility] [address] [place], [place] [address] 12/28/2023 Wendy Kerry Immunization(s) administered Z23 [facility] [place] [address] [place] [address] 01/10/2024 Wendy Diego Dysuria R30.0 and Ac earnestine cystitis without hematuria N30.00 [facility] [place] [address] [place] [address] 01/18/2024 Wendy Payne Syncope and collapse R55 ; Supraclavicular fossa fullness R22.2 ; Type 2 diabetes mellitus with other specified complication E11.69 and shelter (current) use of insulin Z79.4 [facility] [place] [address] [place] [address] 03/12/2024 Wendy Payne Syncope and collapse R55 ; Medicare annual wellness visit, subsequent Z00.00 ; Type 2 diabetes mellitus with other specified complication E11.69 ; shelter (current) use of insulin Z79.4 ; Obstructive sleep apnea G47.33 ; Hypothyroidism E03.9 ; 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 ; Nonalcoholic steatohepatitis (FULLER) K75.81 ; RLS (restless legs syndrome) G25.81 ; BMI 33.0-33.9,adult Z68.33 ; Visit for screening mammogram Z12.31 and Asymptomatic postmenopausal state Z78.0 [facility] [place] [address] [place] [address] 04/09/2024 Wendy Payne Weight loss R63.4 ; Pre-syncope R55 and Elevated serum creatinine R79.89 [facility] [place] [address] [place] [address] 07/11/2024 Wendy Payne Type 2 diabetes mellitus with other specified complication E11.69 ; shelter (current) use of insulin Z79.4 ; Hypothyroidism E03.9 ; Nonalcoholic steatohepatitis (FULLER) K75.81 ; Muscle spasm M62.838 ; RLS (restless legs syndrome) G25.81 and Peripheral neuropathic pain M79.2 [facility] [place] [address] [place] [address] 08/28/2024 Wendy Diego Myalgia, multiple si natalia M79.18 and Muscle cramping R25.2 [facility] [address] [place] [address] 09/30/2024 Wendy Kerry Muscle cramping R25. 2 ; Type 2 diabetes mellitus with other specified complication E11.69 ; shelter (current) use of insulin Z79.4 ; Hypothyroidism E03.9 ; Nonalcoholic steatohepatitis (FULLER) K75.81 ; RLS (restless legs syndrome) G25.81 and Peripheral neuropathic pain M79.2 [facility] [address] [place] [address] 10/09/2024 Wendy Niñoowell Lower abdominal pain R10.30 and Viral gastroenteritis A08.4 [facility] [address] [place] [address] 10/17/2024 Wendyosbaldo PanKerry LUQ pain R10.12 and Nausea without vomiting R11.0 [facility] [place] [address] [facility] [address] [place] [address] 11/11/2024 Wendy Kerry Muscle cramping R25. 2 ; Type 2 diabetes mellitus with other specified complication E11.69 ; shelter (current) use of insulin Z79.4 and Contusion of lesser toe of right foot without damage to nail, initial encounter S90.121A [facility] [address] [facility] [address] [place] [address] 02/09/2024 Clarence Ram Breast cancer screen ing by mammogram Z12.31 [facility] [address] [place] [address] 02/24/2024 Clarence Ram [facility] [address] [place] [address] 02/29/2024 Wendy Kerry [facility] [address] [place] [address] 03/12/2024 Clarence Ram Syncope and collapse R55 [facility] [address] [address] 03/18/2024 Wedny Kerry [facility] [address] [facility] [address] [place] [address] 03/27/2024 Wendy Payne [facility] [address] [place], [place] [address] 04/02/2024 Clarence Ram [facility] [address] [place], [place] [address] 05/21/2024 Clarence Ram [facility] [address] [place] [address] 08/20/2024 Wendy Payne [facility] [address] [facility] [place] [address] 09/16/2024 Clarence Ram Type 2 diabetes mellitus with other specified complication E11.69 [facility] [address] [place] [address] 10/01/2024 Wendy Payne Assessments Encounter Date Diagnosis (ICD Code) Assessment Notes Treatment Notes Treatment Clinical Notes Section Notes 12/11/2023 Type 2 diabetes mellitus with other [...] recurring edema, callus formation, neuropathic pain. 07/11/2024 shelter (current) use of insulin (ICD-10 - Z79.4) [...] stretching 10/09/2024 Viral gastroenteritis (ICD-10 - A08.4) Reassurance. [...] vs ED. Patient and family voice understanding. 10/09/2024 Lower abdominal pain (ICD-10 - R10.30) UA not concerning for UTI. Will culture and not treat with antibiotic unless culture is positive. I personally will review final culture results. 10/17/2024 Nausea without vomiting (ICD-10 - R11.0) 10/17/2024 LUQ pain (ICD-10 - R10.12) She is certainly high risk for pancreatitis given her diabetes and use of a GLP-1 inhibitor. Recommend labs as noted and encouraged her to hold her Ozempic until symptoms are completely resolved. 11/11/2024 Type 2 diabetes mellitus with other specified complication (ICD-10 - E11.69) Recent labs were stable, continue current regimen, labs again in 3 months 11/11/2024 Muscle cramping (ICD-10 - R25.2) lower extremities appear well perfused and symptoms are improved, no changes recommended 12/11/2023 shelter (current) use of insulin (ICD-10 - Z79.4) 11/11/2024 shelter (current) use of insulin (ICD-10 - Z79.4) 09/30/2024 Type 2 diabetes mellitus with other specified complication (ICD-10 - E11.69) Recent labs were stable. goal A1C < 7. Eye exam UTD. Good candidate for diabetic shoes due to her recurring edema, callus formation, neuropathic pain. 07/11/2024 Hypothyroidism (ICD-10 - E03.9) continue replacement 04/09/2024 Elevated serum creatinine (ICD-10 - R79.89) [...] continue dietary and weight loss efforts 01/18/2024 shelter (current) use of insulin (ICD-10 - Z79.4) 03/12/2024 shelter (current) use of insulin (ICD-10 - Z79.4) 09/30/2024 shelter (current) use of insulin (ICD-10 - Z79.4) 11/11/2024 Contusion of lesser toe of right foot without damage to nail, initial encounter (ICD-10 - S90.121A) skin intact, discussed rest/ice and monitor for complications 09/30/2024 Hypothyroidism (ICD-10 - E03.9) continue replacement [...] 03/12/2024 Asthma with COPD (ICD-10 - J44.9) [facility] Pulmonology following 03/12/2024 Nonalcoholic steatohepatitis (FULLER) (ICD-10 [...] Test Test Name Order Date Physical Therapy 08/11/2014 Physical Therapy 06/20/2017 Physical Therapy 07/15/2009 Mammogram : Bilateral 02/09/2024 Mammogram : Bilateral 04/02/2020 Mammogram : Bilateral 09/19/2016 Over Night Pulse Oximetry 11/15/2019 Dietary Consult 05/21/2014 C-CBC 08/11/2020 C-CMP 08/11/2020 C-HEPATITIS PANEL 08/11/2020 C-THYROID PROFILE 08/11/2020 C-AMMONIA 08/11/2020 C-HGBA1C 08/11/2020 C-BNP 08/11/2020 Pulmonary Function Test- Complete 2019 M-Complete Blood Count Auto Diff 019 M-Complete Blood Count Auto Diff 024 M-Basic Metabolic Panel 09/20/2018 IRON, TIBC AND FERRITIN PANEL (5616) 12/2023 COMPREHENSIVE METABOLIC PANEL (26023) BASIC METABOLIC PANEL (33885) 07/25/2023 VITAMIN D,25-OH,TOTAL,IA (89425) 025 Future Test Test Name Order Date C-BASIC METABOLIC 01/22/2016 H-CBC with AUTO DIFF 07/16/2016 H-CMP 07/16/2016 H-LIPID PANEL 07/16/2016 H-HGBA1C 07/16/2016 H-SED RATE 07/16/2016 C-CMP 09/20/2016 C-LIPID PANEL 09/20/2016 C-HGBA1C 09/20/2016 Next Appt Details Provider Name:Wendy shrestha, 02/10/2025 09:30:00 AM, [address], [address], [place], [address], Insurance Providers Payer Name Payer Address Payer Phone Subscriber Number Group Number Insured Name Patient Relationship to Insured Coverage Start Date Coverage End Date HUMANA MEDICARE DUAL [address] [address] [place] [address] [id number] Luh Bosch Self - patient is the [...] x 2 05/2023 Hospitalization History Reason Date(Month/Year) [facility] - cirrhosis and complications 2020 [facility] - hyponatremia, anasarca 08/2020 [facility]-hypokelemia 10/2019 [facility]-chest pains 08/2018 [facility]- colitis, hypokalemia 05/2018 bowel obstruction 01/2016 abd pain/bowel obstruction chest pains
--- OUTSIDE RECORDS SUMMARY | 2024-12-04 12:51 | XMS_ITS | Encounter Summary ---
Author Organization Healthcare Address [address] [id number] Care Team Providers Care Can Sealer Name Role Phone Clarence Ram MD Primary Care Provider [phone] Encounter Details Date Type Department Care Team (Latest Contact Info) Description 11/08/2024 Travel Social History Tobacco Use Types Packs/Day [...] documented as of this encounter Care Teams Can Sealer Relationship Specialty Start Date End Date Clarence Ram MD [address] [place] [address] PCP - General 08/28/20 documented as of this encounter
--- OUTSIDE RECORDS SUMMARY | 2024-12-04 12:51 | XMS_ITS | Clinical Summary ---
Author Organization Healthcare Address [address] [place] [address] Care Team Providers Care Clerical Adviser Name Role Phone Clarence Ram MD Primary Care Provider [phone] Allergies Active Allergy Reactions Criticality Noted Date [...] Encounters Date Type Department Care Team Description 11/08/2024 8:14 AM EDT - 11/08/2024 11:59 PM EDT Hospital Encounter [facility] [address] [place] [address] Excessive and redundant skin and subcutaneous tissue Discharge Disposition: Home or Self Care 11/08/2024 Travel from Last 3 Months Family History [...] [facility]-HIV Screening 1961 [facility]-Hepatitis C Screening 1961 [facility]-Medicare Annual Wellness (AWV) 1961 [facility]-/Child/Adol SDOH Screenings 1961 [facility]- SDOH Screenings 11/15/1979 [facility]-Adult SDOH Screenings 11/15/1979 [facility]-DTaP,Tdap,and Td Vaccines (1 - Tdap) 1980 CT Colonography 2006 Colonoscopy 2006 FIT-DNA 2006 FIT 2006 FOBT 2006 Sigmoidoscopy 2006 [facility]-Colorectal Cancer Screening 2006 [facility]-Breast Cancer Screening 11/15/2011 [id number] Vaccine (3 - Pfizer risk series) 09/29/2020 [...] on patient's age to complete this topic Procedures Procedure Name Priority Date/Time Associated Diagnosis Comments CT ABDOMEN PELVIS WO IV CONTRAST Routine 11/08/2024 8:56 AM EDT Excessive and redundant skin and subcutaneous tissue from Last 3 Months Results * CT Abdomen Pelvis wo IV [...] MD IMG CT PROCEDURES Final Resul t from Last 3 Months Insurance [id number] [id number] MEDICA[place] HUMANA MEDICARE Care Teams Clerical Adviser Relationship Specialty Start Date End Date Clarence Ram MD [address] [place] [address] PCP - General 08/28/20
--- OUTSIDE RECORDS SUMMARY | 2024-12-04 12:51 | XMS_ITS | Encounter Summary ---
Author Organization Healthcare Address [address] [id number] Care Team Providers Care Volleyball Player Name Role Phone Clarence Ram MD Primary Care Provider [phone] Reason for Referral * Consultation (Routine) - Closed Specialty Diagnoses / Procedures Referred By Danilo joseph Referred To Contact Plastic Surgery Diagnoses Loose skin Excessive body weight loss Wendy Payne APRN [address] [address] Phone: tel: fax: Referral ID Status Reason Start Date Expiration Date V isits Requested Visits Authorized [id number] Closed Specialty Services Required 05/22/2024 11/21/2025 1 1 Encounter Details Date Type Department Care Team (Late st Contact Info) Description 05/22/2024 Community Orders Community [facility] [address] [place] [address] Wendy Payne APRN [address] [place] [address] Loose skin (Primary Dx); Excessive body weight [...] weight documented in this encounter Care Teams Volleyball Player Relationship Specialty Start Date End Date Clarence Ram MD [address] [place] [address] PCP - General 08/28/20 documented as of this encounter
--- OUTSIDE RECORDS SUMMARY | 2024-12-04 12:51 | XMS_ITS | Encounter Summary ---
Author Organization Healthcare Address [address] [id number] Care Team Providers Care Med Spec Name Role Phone Clarence Ram MD Primary Care Provider [phone] Reason for Referral * Consultation (Routine) - Authorized Specialty Diagnoses / Procedures Referred By Danilo joseph Referred To Contact Plastic Surgery Diagnoses Abdominal obesity Wendy Payne, DEVELOPMENTAL THERAPIST [address] [place] [address] Phone: tel: fax: Referral ID Status Reason Start Date Expiration Date Visits Requested Visits Authorized [id number] Authorized Specialty Services Required 09/29/2023 03/30/2025 1 1 Encounter Details Date Type Department Care Team (Late st Contact Info) Description 09/29/2023 Community Orders [facility] [address] [place] [address] Wendy Payne, DEVELOPMENTAL THERAPIST [address] [place] [address] Abdominal obesity (Primary Dx) Social History Tobacco [...] adiposity documented in this encounter Care Teams Med Spec Relationship Specialty Start Date End Date Clarence Ram MD [address] [place] [address] PCP - General 08/28/20 documented as of this encounter
--- OUTSIDE RECORDS SUMMARY | 2024-12-04 12:51 | XMS_ITS | Patient Health Record ---
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 Problem Hypotension due to drugs (463566663) Hypotension due to drugs (I95.2) Active confirmed Problem Gastro-esophageal reflux disease without esophagitis (486204939) Gastro-esophageal reflux disease without esophagitis (K21.9) Active confirmed Problem Cirrhosis of liver (22624653) Other cirrhosis of liver (K74.69) Active confirmed Problem Ascites (749830722) Other ascites (R18.8) Active confirmed Problem Hyponatremia (63176428) Hyponatremia (E87.1) Active confirmed Problem Hypothyroidism (83874484) Hypothyroidism (E03.9) Active confirmed Problem Mixed hyperlipidemia (880610737) Hyperlipemia, mixed (E78.2) Active confirmed Problem 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) Active confirmed Problem Peripheral edema (91651558) Peripheral edema (R60.9) Active confirmed Problem Diabetes mellitus type 2 (01558184) Diabetes mellitus type 2, uncontrolled (E11.65) Active confirmed Problem Edema (204830743) Edema leg (R60.0) Active conf irmed Problem Clostridial gastroenteritis (94050015) Enterocolitis due to Clostridium difficile, not specified [...] Coverage End Date HUMANA MEDICARE [address] [address] [place] [address] [id number] PEPE GLASS Self - patient is the insured Medicaid of [place] [address] [place] [address] [id number] PEPE GLASS Self - patient is the insured Medical (General) History Surgical History Surgery Date(Month/Year) GALLBLADDER 2004 HYSTERECTOMY 2001 HAND 1988 Hospitalization History Reason Date(Month/Year) [facility] 11/2020
== END 2024-12-04 23:59 | disposition home or self-care (01) ==
LOC: RAD 12:47
PROVIDERS: PCP Nurse Practitioner Family; Visit Provider Podiatrist
DX: S92.531A Displaced fracture of distal phalanx of right lesser toe(s), initial encounter for closed fracture (principal)
CPT/HCPCS: 73630

== ENCOUNTER 2025-01-06 09:50 | Outpatient (CLI) | payer MEDICARE, MEDICAID, SELFPAY ==
--- OUTSIDE RECORDS SUMMARY | 2024-11-08 08:14 | XMS_ITS | Encounter Summary ---
Author Organization Healthcare Address [address] [place] [address] Care Team Providers Care Lockstitcher Name Role Phone Clarence Ram MD Primary Care Provider [phone] Reason for Referral * Imaging (Routine) - Closed Specialty Diagnoses / Procedures Referred By Danilo joseph Referred To Contact Radiology Diagnoses Excessive and redundant skin and subcutaneous tissue Procedures CT Abdomen Pelvis wo IV Contrast Tiago Noguera MD [address] [place] [address] [address] Phone: tel: fax: Referral ID Status Reason Start Date Expiration Date Visits Re quested Visits Authorized [id number] Closed 08/22/2024 02/21/2026 1 1 Reason for Visit * Imaging (Routine) - Closed Specialty Diagnoses / Procedures Referred By Danilo joseph Referred To Contact Radiology Diagnoses Excessive and redundant skin and subcutaneous tissue Procedures CT Abdomen Pelvis wo IV Contrast Tiago Noguera MD [address] [address] Phone: tel: fax: Referral ID Status Reason Start Date Expiration Date Visits Re quested Visits Authorized [id number] Closed 08/22/2024 02/21/2026 1 1 Encounter Details Date Type Department Care Team (Latest Contact Info) Description 11/08/2024 8:14 AM EDT - 11/08/2024 11:59 PM EDT Hospital Encounter [facility] CT [address] [place] [address] Excessive and redundant skin and [...] Terry Valenzuela MD on 11/08/2024 9:26 AM Tiago Noguera [...] documented as of this encounter Care Teams Lockstitcher Relationship Specialty Start Date End Date Clarence Ram MD [address] [place] [address] PCP - General 08/28/20 documented as of this encounter
--- OUTSIDE RECORDS SUMMARY | 2024-11-11 06:00 | XMS_ITS ---
Author Organization [facility] Address [address] [place] [address] Care Team Providers Care Seed Cleaning Machine Operator Name Role Phone Clarence Ram Primary Care Provider Wendy Payne [phone] Allergies Allergen (clinical drug ingredient) Drug/Non Drug [...] review and pick correct strength-formulat ion from [employer] options. If intended option is not shown, discontinue and re-order from Quick Search* Active Famotidine 20 MG 1 tab(s) orally once a day (at bedtime); Duration: 90 days Active Advair HFA 115 MCG-21 MCG 2 INH INHALED 2 TIMES A DAY *Please review and pick correct strength-formulat ion from [employer] options. If intended option is not shown, [...] 11/11/2024 Encounters Encounter Location Date Provider Diagnosis [facility] [address] [place] [address] 11/11/2024 Wendy Payne Muscle cramping R25. 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 Z79.4 and Contusion [...] 02/10/2025 09:30:00 AM, [address] [facility], [address], [place], [address], Progress Notes * Luh BOSCHDOB:1960 ( 63 yo F)Acc No.[id number]:11/11/2024 Progress Notes Patient: Luh COSTA Provider: COBY Busby :1960 A ge:63 Y S ex:Female Date:11/11/2024 Address:[address], [id number] Pcp:Clarence Ram Subjective: * Chief Complaints: * [...] [facility]- colitis, hypokalemia 05/2018, [facility]-chest pains 08/2018, [facility]-hypokelemia 10/2019, H - hyponatremia, anasarca 08/2020, [...] *Please review and pick correct strength-formulation from [employer] options. If intended option is not shown, discontinue and re-order from Quick Search*, Taking Multivitamin - Tablet 1 tab(s) orally once a day , Taking Calcium 600 + D 600 MG-20 MCG TABLET 1 TAB(S) ORALLY 2 TIMES A DAY , Notes to Pharmacist: *Please review and pick correct strength-formulation from [employer] options. If intended option is not shown, [...] Completed true * Provider: COBY Busby Date: 11/11/2024 Generated for Tomasa alarcon/Christian/eTmanpreetitting on: 0 01/06/2025 10:07 AM EDT History and Physical Notes * Examination [...]
--- NOTE | 2025-01-06 09:54 | XR_ITS ---
FINAL REPORT CLINICAL HISTORY: Evaluation of right foot fracture COMPARISON: 12/04/2024 FINDINGS: AP, oblique and lateral views of the right foot were obtained. There has been interval healing of the fracture of the distal phalanx of the fifth digit. Appearance of the mid phalanx is stable. No new osseous abnormality. No acute soft tissue abnormality. The joint spaces are preserved. IMPRESSION: Interval healing fifth distal phalanx fracture. Reviewed, Interpreted and Dictated by Alona Aguilar MD Transcribed by Margo Banegas Authenticated and [facility]
--- OUTSIDE RECORDS SUMMARY | 2025-01-06 10:08 | XMS_ITS | Encounter Summary ---
Author Organization [employer] ([place], [place], [place], [place]) Address [address] [place] [address] Care Team Providers Care Mixing Machine Attendant Name Role Phone Unavailable Primary Care Provider Unavailabl e Encounter Details Date Type Department Care Team (Late st Contact Info) Description 10/09/2020 Transcribed Document [facility] [place] Family Medicine [address] [place] [address] ProviderRadha MD [address] [place] [address] Social History Tobacco Use Types [...]
--- OUTSIDE RECORDS SUMMARY | 2025-01-06 10:08 | XMS_ITS | Encounter Summary ---
Author Organization [employer] ([place], [place], [place], [place]) Address [address] [place] [address] Care Team Providers Care Crusher Feeder Name Role Phone Unavailable Primary Care Provider Derrell rose Encounter Details Date Type Department Care Team (Late st Contact Info) Description 10/09/2020 Transcribed Document [facility] [place] Family Medicine [address] [place] [address] ProviderRadha MD [address] [place] [address] Social History Tobacco Use Types [...] mg, Oral, Daily Lovenox: 40 mg, SubCutaneous, [id number] MiraLax: 17 Gram, Oral, Daily, PRN: Constipation [...] History of obstructive sleep apnea / IMO [id number] / Confirmed, Active Problems (6) Diabetes mellitus [...]
--- OUTSIDE RECORDS SUMMARY | 2025-01-06 10:08 | XMS_ITS | Encounter Summary ---
Author Organization [facility] [employer] ([place], [place], [place], [place]) Address [address] [place] [address] Care Team Providers Care Screw Machine Adjuster Automatic Name Role Phone Unavailable Primary Care Provider Unavailabl e Encounter Details Date Type Department Care Team (Late st Contact Info) Description 10/08/[address] [facility] [place] Family Medicine [address] [place] [address] ProviderRadha MD [address] [place] [address] Social History Tobacco Use Types [...]
--- OUTSIDE RECORDS SUMMARY | 2025-01-06 10:08 | XMS_ITS | Encounter Summary ---
Author Organization [employer] ([place], [place], [place], [place]) Address [address] [place] [address] Care Team Providers Care Welt Insole Channeler Name Role Phone Unavailable Primary Care Provider Unavailabl e Encounter Details Date Type Department Care Team (Late st Contact Info) Description 10/09/2020 Transcribed Document [facility] [address] [place] [address] ProviderRadha MD [address] [place] [address] Social History Tobacco Use Types [...]
--- OUTSIDE RECORDS SUMMARY | 2025-01-06 10:08 | XMS_ITS | Encounter Summary ---
Author Organization [employer] ([place], [place], [place], [place]) Address [address] [place] [address] Care Team Providers Care Metal Casket Maker Name Role Phone Unavailable Primary Care Provider Derrell rose Encounter Details Date Type Department Care Team (Late st Contact Info) Description 10/01/2020 Transcribed Document [facility] [place] [address] [place] [address] ProviderRadha MD [address] [place] [address] Social History Tobacco Use Types [...] mg, Oral, Daily Lovenox: 40 mg, SubCutaneous, [id number] MiraLax: 17 Gram, Oral, Daily, PRN: Constipation NORepinephrine injection 8 mg + NaCl 0.9% for drip 250 mL: Titrate, IntraVENous Phenergan: 6.25 mg, IntraVENous, Q6H, PRN: Nausea Rocephin: 1 Gram, 100 mL/Hr, IV Piggyback, [id number] Roxicodone: 5 mg, Oral, Q4H, PRN: Pain [...] History of obstructive sleep apnea / IMO [id number] / Confirmed, Active Problems (1) History of [...] ok cct 33mins Electronically signed by Angela, [facility] Conversion Fiberglass Insulation Installer Cerner at 08/02/2022 6:10 PM CDT documented in this encounter Plan of Treatment Not on file documented as of this encounter Visit Diagnoses Not on filedocumented in this encounter
--- OUTSIDE RECORDS SUMMARY | 2025-01-06 10:08 | XMS_ITS | Encounter Summary ---
Author Organization [employer] ([place], [place], [place], [place]) Address [address] [place] [address] Care Team Providers Care High Pressure Operator Name Role Phone Unavailable Primary Care Provider Unavailabl e Encounter Details Date Type Department Care Team (Late st Contact Info) Description 10/01/2020 Transcribed Document [facility] [place] Family Medicine [address] [place] [address] ProviderRadha MD [address] [place] [address] Social History Tobacco Use Types [...] #2 Relationship : son Primary Language : Vincentian Communication Barrier : None Packing Inspector Needed : No Alyse Sanchez RN - [...] Scale Risk Level : 25-45 Medium Risk Spencer Fall Interventions : Adequate lighting, Bed in [...] Source : Stated Height Entry Format : [place] Height, Feet : 5 ft(Converted to: 152 cm, 60 Inch) Height, Inches : 2 Inch(Converted to: 0 ft 2 Inch, 5.08 cm) Clinical Height : 157.48 cm Weight Source : Standing scale Weight Entry Format : [place]ry Clinical Dosing Weight : 157.27 kg Weight, Pounds : 346 lb Body Surface Area (BSA) : 2.42 m2 Body Mass Index : 63.4 kg/m2 (>HHI) Naoma Body Weight : 50 kg Alyse Sanchez [...] Alyse Sanchez RN - 10/01/2020 16:15 EDT [place] Suicide Severity Rating Scale (C-SSRS) CSSRS Past [...] 10/01/2020 16:15 EDT Electronically signed by Angela [facility] Conversion Sinter Press Operator Cerner at 08/02/2022 6:22 PM CDT documented in this encounter Plan of Treatment Not on file documented as of this encounter Visit Diagnoses Not on filedocumented in this encounter
--- OUTSIDE RECORDS SUMMARY | 2025-01-06 10:08 | XMS_ITS | Encounter Summary ---
Author Organization [employer] ([place], [place], [place], [place]) Address [address] [place] [address] Care Team Providers Care Instrument Installer Name Role Phone Unavailable Primary Care Provider Unavailabl e Encounter Details Date Type Department Care Team (Late st Contact Info) Description 10/09/2020 Transcribed Document [facility] [place] [address] [place] [address] ProviderRadha MD [address] [place] [address] Social History Tobacco Use [...] Historical ProviderMD - 10/09/2020 2:00 AM CDT Material Worker Details Entered On: 10/09/2020 1:08 EDT Performed [...]
--- OUTSIDE RECORDS SUMMARY | 2025-01-06 10:08 | XMS_ITS | Encounter Summary ---
Author Organization [employer] ([place], [place], [place], [place]) Address [address] [place] [address] Care Team Providers Care Machinery Erector Name Role Phone Unavailable Primary Care Provider Unavailabl e Encounter Details Date Type Department Care Team (Late st Contact Info) Description 10/01/2020 Transcribed Document [facility] [place] [address] [place] [address] ProviderRadha MD [address] [place] [address] Social History Tobacco Use Types [...] 10/01/2020 18:07 EDT Electronically signed by Angela [facility] Conversion Credit Risk Modeler Cerner at 08/02/2022 6:20 PM CDT documented in this encounter Plan of Treatment Not on file documented as of this encounter Visit Diagnoses Not on filedocumented in this encounter
--- OUTSIDE RECORDS SUMMARY | 2025-01-06 10:08 | XMS_ITS | Encounter Summary ---
Author Organization [employer] ([place], [place]) Address [address] [place] [address] Care Team Providers Care Mill Control Operator Name Role Phone Unavailable Primary Care Provider Unavailabl e Encounter Details Date Type Department Care Team (Late st Contact Info) Description 10/01/2020 Transcribed Document [facility] [place] Family Medicine [address] [place] [address] ProviderRadha MD [address] [place] [address] Social History Tobacco Use Types [...] On: 10/01/2020 14:29 EDT by KAROLINA PLEITEZ Rn-Technical PlannerDirector Of Orthopedics Progress Note Discharge Arrangements : Patient Post-Acute [...] : Clinical Condition of Patient KAROLINA PLEITEZ Rn-Technical Planner - 10/01/2020 14:29 EDT Narrative Progress Note Narrative Progress Note : HD#1; ELOS 3; MRR; BOOST 7 - Transfer from [facility] for Generalized Edema; Nephrology consult; HS=251; RA; Doxycycline/Rocephin; met w/pt's adult children Leslie Lenka and Kishore Glass ([phone]) who states DCP will be return to [facility] for ongoing rehab; explained pt will require a precert; updates clinicals sent to [facility] and voicemail left for intake [phone]; [phone]. KAROLINA PLEITEZ, Rn-Technical Planner - 10/01/2020 14:29 EDT documented in this encounter Plan of Treatment Not on file documented as of this encounter Visit Diagnoses Not on filedocumented in this encounter
--- OUTSIDE RECORDS SUMMARY | 2025-01-06 10:08 | XMS_ITS | Encounter Summary ---
Author Organization [employer] ([place], [place], [place], [place]) Address [address] [place] [address] Care Team Providers Care Acute Specialist Name Role Phone Unavailable Primary Care Provider Unavailabl e Encounter Details Date Type Department Care Team (Late st Contact Info) Description 10/09/2020 Transcribed Document [facility] [place] Family Medicine [address] [place] [address] ProviderRadha MD [address] [place] [address] Social History Tobacco Use Types [...] COTTRELL RD, DAVINA - 10/09/2020 12:37 EDT documented in this encounter Plan of Treatment Not on file documented as of this encounter Visit Diagnoses Not on filedocumented in this encounter
--- OUTSIDE RECORDS SUMMARY | 2025-01-06 10:08 | XMS_ITS | Encounter Summary ---
Author Organization [employer] ([place], [place], [place], [place]) Address [address] [place] [address] Care Team Providers Care Exhibitor Sales Name Role Phone Unavailable Primary Care Provider Unavailabl e Encounter Details Date Type Department Care Team (Late st Contact Info) Description 10/09/2020 Transcribed Document [facility] [place] Family Medicine [address] [place] [address] ProviderRadha MD [address] [place] [address] Social History Tobacco Use Types [...] Non Emp RN - 10/09/2020 3:36 EDT documented in this encounter Plan of Treatment Not on file documented as of this encounter Visit Diagnoses Not on filedocumented in this encounter
--- OUTSIDE RECORDS SUMMARY | 2025-01-06 10:08 | XMS_ITS | Encounter Summary ---
Author Organization [employer] ([place], [place], [place], [place]) Address [address] [place] [address] Care Team Providers Care Wheel Fitter Name Role Phone Unavailable Primary Care Provider Unavailabl e Encounter Details Date Type Department Care Team (Late st Contact Info) Description 10/01/2020 Transcribed Document [facility] [place] [address] [place] [address] ProviderRadha MD [address] [place], [place] [address] Social History Tobacco Use Types Packs/Day Years [...]
--- OUTSIDE RECORDS SUMMARY | 2025-01-06 10:08 | XMS_ITS | Encounter Summary ---
Author Organization [employer] ([place], [place], [place], [place]) Address [address] [place] [address] Care Team Providers Care Hospital Attendant Name Role Phone Unavailable Primary Care Provider Unavailabl e Encounter Details Date Type Department Care Team (Late st Contact Info) Description 10/01/2020 Transcribed Document [facility] [place] Family Medicine [address] [place] [address] ProviderRadha MD [address] [place] [address] Social History Tobacco Use Types [...] Rapid Response Event Location Type : Other: [facility] Room 425 JONATHAN MADDOX RN - 10/01/2020 [...] change in location/level of care Rapid Response Hospital Attendant #1 : JONATHAN MADDOX RN Rapid Response Hospital Attendant #2 : FLORENCE ARIZA CRT LACY, ROBERT [...]
--- OUTSIDE RECORDS SUMMARY | 2025-01-06 10:08 | XMS_ITS | Encounter Summary ---
Author Organization [employer] ([place], [place], [place], [place]) Address [address] [place] [address] Care Team Providers Care Catalyst Recovery Operator Name Role Phone Unavailable Primary Care Provider Unavailabl e Encounter Details Date Type Department Care Team (Late st Contact Info) Description 10/01/2020 Transcribed Document [facility] [place] Family Medicine [address] [place] [address] ProviderRadha MD [address] [place] [address] Social History Tobacco Use Types [...] pedal edema. No cyanosis. Peripheral pulses palpable. OUTSIDE SALES MANAGER: No focal deficit noted grossly. Cranial [...] - Medical Enoxaparin 40 mg, SubCutaneous, Inj, [id number], Routine, Start 09/30/20 12:00:00 EDT, 09/30/20 11:44:00 [...] Daily Lovenox, 40 mg= 0.4 mL, SubCutaneous, [id number] magnesium sulfate, 2 Gram= 50 mL, IV [...] 284 mOsm/kg 10/01/2020 05:49 EDT Protein Ur [place] 112 mg/dL 10/01/2020 05:49 EDT Sodium Ur [place] 18 mMole/Liter 10/01/2020 05:49 EDT Urea Nitrogen Urine Random 390 mg/dL 10/01/2020 05:49 EDT CK 55 Units/Liter 09/30/2020 13:13 EDT Urine Type U Cath 10/01/2020 05:49 EDT Urine Color RED2 10/01/2020 05:49 EDT Urine Appearance TURBID2 (Abnormal) 10/01/2020 05:49 EDT Urine Specific [place] 1.015 10/01/2020 05:49 EDT Urine pH Dipstick [...]
--- OUTSIDE RECORDS SUMMARY | 2025-01-06 10:08 | XMS_ITS | Encounter Summary ---
Author Organization [employer] ([place], [place], [place], [place]) Address [address] [place] [address] Care Team Providers Care Process Control Technician Name Role Phone Unavailable Primary Care Provider Unavailabl e Encounter Details Date Type Department Care Team (Late st Contact Info) Description 10/01/2020 Transcribed Document [facility] [address] [place] [address] ProviderRdaha MD [address], [place] [address] Social History Tobacco Use Types Packs/Day Years [...] Care Spiritual Care Referred by : Other: METAL MINE INSPECTOR Event Reason for Visit : Initial Ministry Provided to : Patient Intervention/Comment/Summary Points : Chap. prayed o/s pt. while team worked with pt. Upon conclusion of METAL MINE INSPECTOR event pt. declined chap. visit. BHARGAVI ANTON Chaplain - 10/01/2020 3:23 EDT documented in this encounter Plan of Treatment Not on file documented as of this encounter Visit Diagnoses Not on filedocumented in this encounter
--- OUTSIDE RECORDS SUMMARY | 2025-01-06 10:08 | XMS_ITS | Encounter Summary ---
Author Organization [employer] ([place], [place], [place], [place]) Address [address] [place] [address] Care Team Providers Care Special Education Paraprofessional Name Role Phone Unavailable Primary Care Provider Derrell rose Encounter Details Date Type Department Care Team (Late st Contact Info) Description 10/08/2020 Transcribed Document [facility] [place] Family Medicine [address] [place] [address] ProviderRadha MD [address] [place] [address] Social History Tobacco Use Types [...] nausea sitting up in bed, working on [employer] Health Status Allergies: Allergic Reactions (Selected) High [...] mg, Oral, Daily Lovenox: 40 mg, SubCutaneous, [id number] MiraLax: 17 Gram, Oral, Daily, PRN: Constipation [...] History of obstructive sleep apnea / IMO [id number] / Confirmed, Active Problems (6) Diabetes mellitus [...]
--- OUTSIDE RECORDS SUMMARY | 2025-01-06 10:08 | XMS_ITS | Encounter Summary ---
Author Organization [employer] ([place], [place], [place], [place]) Address [address] [place] [address] Care Team Providers Care Transformer Shop Supervisor Name Role Phone Unavailable Primary Care Provider Unavailabl e Encounter Details Date Type Department Care Team (Late st Contact Info) Description 10/08/2020 Transcribed Document [facility] [place] [address] [place] [address] ProviderRadha MD [address] [place] [address] Social History Tobacco Use Types [...] On: 10/08/2020 17:54 EDT by LIAM COWAN Rn-Product ScientistAttendant Coin Operated Laundry Progress Note Discharge Arrangements : Patient Post-Acute Information Patient Name: LUH BOSCH Gender: Female : 62 Age: 59 Years No Post-Acute Placement(s) Listed No Post-Acute Service(s) Listed No Curaspan Referral(s) Listed Discharge Options Discussed with Patient : Acute rehabilitation, Discharge transportation, DME, Home Health, Short term rehabilitation Barriers to Discharge Identified : Clinical Condition of Patient, Follow-Up appointments needed, No fpc bed available Barriers to Discharge Unresolved : Clinical Condition of Patient, No fpc bed available Is the Patient Meeting Medical Necessity : No Did you Document Avoidable Days? : Yes Did you Attend Multidisciplinary Rounds? : Yes LIAM COWAN, Rn-Product Scientist - 10/08/2020 17:54 EDT Narrative Progress Note Narrative Progress Note : ELOS 3, hospital day 8, RRS 59, she needs a terminal makeup operator care skilled bed, referrals sent to Radha mcarthur with [facility] assessing [facility] bariat[facility] bed [facility] Historical Progress Note : Received call from [facility] [phone] advising CM their facility is unable to meet pt's needs - r/t C-Diff; weight - non-ambulatory w/ bed activity; pt on transfer to [facility] - notified CM. KAROLINA PLEITEZ Rn-Product Scientist - 10/07/20 11:01:00 HD#6; ELOS 3; MRR; BOOST 7 - GenEdema/Anasarca; received voice mail from [facility] requesting additional clinical information - faxed this am; awaiting return call to confirm precert has been initiated. KAROLINA PLEITEZ Rn-Product Scientist - 10/07/20 07:45:25 Dr. Pemberton tells CM pt is ready to transition and is appropriate for precert to be initiated with short-term rehab; spoke with pt and she is in agreement to go to [facility]. Contacted [facility] and she will initiate the precert and confirm with Dr. Whittaker. KAROLINA PLEITEZ Rn-Product Scientist - 10/06/20 13:57:22 HD#5; ELOS 3; MRR; BOOST 7 - Generalized Edema/Anasarca = 02/2L; Vancomycin/Midodrine; declined to stand w/therapy - will need rehab r/t ongoing weakness; discussion w/pt's family about need for rehab - possible long-term placement if unable to progress; [facility] interested to discuss with MD; [facility] unable to meet pt's needs; continue to follow. KAROLINA PLEITEZ Rn-Product Scientist - 10/06/20 08:58:40 Received call from pt's daughter Leslie Og and she requested referrals be sent to [facility] in [place], [place] ([employer]) and [facility] in [place], [place] ([facility]). PLEITEZ, KAROLINA, Rn-Product Scientist - 10/05/20 15:28:00 HD#4; ELOS 3; MRR; BOOST 7 - GenEdema/Hypernatremia/Anasarca - 02=2L; B/P 105/58; PO Vancomycin; Midodrine 10 mg TID; lytes to be replaced; Nephrology has signed off; pt MaxAx2 w/therapy; updates sent thru [facility] to [place] and left another message for f/u to confirm pt may return and anticipated turn around time for precert; DCP return for rehab; will likely require ambulance for transport; pt on transfer out of [facility]. KAROLINA PLEITEZ Rn-Product Scientist - 10/05/20 13:37:58 HD#4; ELOS 3; MRR; BOOST 7 - GenEdema/Hypernatremia/Anasarca - 02=2L; B/P 105/58; PO Vancomycin; Midodrine 10 mg TID; lytes to be replaced; Nephrology has signed off; pt MaxAx2 w/therapy; updates sent thru [facility] to [place] and left another message for f/u to [...] ; initial referrals sent thru [facility] to [facility]. KAROLINA PLEITEZ, Rn-Product Scientist - 10/05/20 13:54:46 HD#1; ELOS 3; MRR; BOOST 7 - GenEdema/Hypernatremia/Anasarca - improving - 02=2L; Levo gtt; Midodrine; IV Bumex; Nephrology - 24 hr urine to eval for nephrotic syndrome; +CDiff; Rocephin/Doxy/Vanc; ltd work w/therapy - refusing OOB and knee/hip AROM; pt needs to be encouraged; DCP rehab - left message for [facility] [phone] to confirm receipt of referral; pt will need precert. KAROLINA PLEITEZ, Rn-Product Scientist - 10/02/20 12:06:37 HD#1; ELOS 3; MRR; BOOST 7 - Transfer from [facility] for Generalized [facility]; Nephrology consult; QT=442; RA; Doxycycline/Rocephin; met w/pt's adult children Leslie Og and Kishore Bosch ([phone]) who states DCP will be return to [place] for ongoing rehab; explained pt will require a precert; updates clinicals sent to [place] and voicemail left for intake [phone]; [phone]. KAROLINA PLEITEZ, Rn-Product Scientist - 10/01/20 14:32:34 LIAM COWAN Rn-Product Scientist - 10/08/2020 17:54 EDT Electronically signed by Galen Miller Conversion Injection Molding Machine Setter Cerner at 08/02/2022 6:25 PM CDT documented in this encounter Plan of Treatment Not on file documented as of this encounter Visit Diagnoses Not on filedocumented in this encounter
--- OUTSIDE RECORDS SUMMARY | 2025-01-06 10:08 | XMS_ITS | Encounter Summary ---
Author Organization [employer] ([place], [place], [place], [place]) Address [address] [place] [address] Care Team Providers Care Leathersmith Name Role Phone Unavailable Primary Care Provider Unavailabl e Encounter Details Date Type Department Care Team (Late st Contact Info) Description 10/11/2020 Transcribed Document [facility] [place] [address] [place] [address] ProviderRadha MD [address] [place] [address] Social History Tobacco Use Types [...] Historical ProviderMD - 10/11/2020 2:00 AM CDT Open Developer Operator Details Entered On: 10/11/2020 2:35 EDT [...]
--- OUTSIDE RECORDS SUMMARY | 2025-01-06 10:08 | XMS_ITS | Encounter Summary ---
Author Organization [employer] ([place], [place], [place], [place]) Address [address] [place] [address] Care Team Providers Care Icu Registered Nurse Name Role Phone Unavailable Primary Care Provider Unavailabl e Encounter Details Date Type Department Care Team (Late st Contact Info) Description 10/08/2020 Transcribed Document [facility] [place] [address] [place] [address] ProviderRadha MD [address] [place] [address] Social History Tobacco Use Types [...] Radha ProviderMD - 10/08/2020 2:00 AM CDT Clam Treader Details Entered On: 10/08/2020 3:45 EDT Performed [...] 10/08/2020 3:45 EDT Electronically signed by [facility] Conversion Screwhead Stoner And Polisher Cerner at 08/02/2022 6:24 PM CDT documented in this encounter Plan of Treatment Not on file documented as of this encounter Visit Diagnoses Not on filedocumented in this encounter
--- OUTSIDE RECORDS SUMMARY | 2025-01-06 10:08 | XMS_ITS | Encounter Summary ---
Author Organization [employer] ([place], [place], [place], [place]) Address [address] [place] [address] Care Team Providers Care Energy Conservation Specialist Name Role Phone Unavailable Primary Care Provider Unavailabl e Encounter Details Date Type Department Care Team (Late st Contact Info) Description 10/01/2020 Transcribed Document [facility] [place] [address] [place] [address] ProviderRadha MD [address] [place] [address] Social History Tobacco Use Types [...] [email or web address] Neves, PT - 10/01/2020 12:30 EDT documented in this encounter Plan of Treatment Not on file documented as of this encounter Visit Diagnoses Not on filedocumented in this encounter
--- OUTSIDE RECORDS SUMMARY | 2025-01-06 10:09 | XMS_ITS | Encounter Summary ---
Author Organization [employer] ([place], [place], [place], [place]) Address [address] [place] [address] Care Team Providers Care Host Coordinator Name Role Phone Unavailable Primary Care Provider Unavailabl e Encounter Details Date Type Department Care Team (Late st Contact Info) Description 09/29/2020 Transcribed Document [facility] [place] [address] [place] [address] ProviderRadha MD [address] [place] [address] Social History Tobacco Use Types [...] inpatient rehab to hospitalization for hyponatremia IVY LCAEY OTR/Susanna - 09/30/2020 15:25 EDT General Status [...] IVY LACEY OTR/Susanna - 09/30/2020 15:25 EDT Histological Illustrator Goals, OT Grooming LTG Grid Goal #1 [...]
--- OUTSIDE RECORDS SUMMARY | 2025-01-06 10:09 | XMS_ITS | Encounter Summary ---
Author Organization Healthcare Address [address] [id number] Care Team Providers Care Retail Wireless Sales Consultant Name Role Phone Clarence Ram MD Primary Care Provider [phone] Reason for Referral * Consultation (Routine) - Authorized Specialty Diagnoses / Procedures Referred By Danilo joseph Referred To Contact Plastic Surgery Diagnoses Abdominal obesity Wendy Payne, FRONT DESK ADMINISTRATOR [address] [place] [address] Phone: tel: fax: Referral ID Status Reason Start Date Expiration Date Visits Requested Visits Authorized [id number] Authorized Specialty Services Required 09/29/2023 03/30/2025 1 1 Encounter Details Date Type Department Care Team (Late st Contact Info) Description 09/29/2023 Community Orders [facility] [address] [place] [address] Wendy Payne, FRONT DESK ADMINISTRATOR [address] [place] [address] Abdominal obesity (Primary Dx) Social History Tobacco [...] adiposity documented in this encounter Care Teams Retail Wireless Sales Consultant Relationship Specialty Start Date End Date Clarence Ram MD [address] [place] [address] [place] [address] PCP - General 08/28/20 documented as of this encounter
--- OUTSIDE RECORDS SUMMARY | 2025-01-06 10:09 | XMS_ITS | Encounter Summary ---
Author Organization [employer] ([place], [place], [place], [place]) Address [address] [place] [address] Care Team Providers Care Chaplaincy Name Role Phone Unavailable Primary Care Provider Unavailabl e Encounter Details Date Type Department Care Team (Late st Contact Info) Description 09/29/2020 Transcribed Document [facility] [place] [address] [place] [address] ProviderRadha MD [address] [place] [address] Social History Tobacco Use Types [...] 3-/fair Ankle Plantarflexion (0-45) : 3-/fair MELO MLOINA, PT - 09/30/2020 15:14 EDT Lower Extremity [...] MELO MOLINA, PT - 09/30/2020 15:14 EDT Intermediate Goals Mobility/Bed Mobility LTG PT Grid Goal [...] aware of. Total A for hygiene as END USER SUPPORT SPECIALIST assisted with pt rolling to each side [...] MELO MOLINA, PT - 09/30/2020 15:14 EDT [place] PT Charges PT Eval Moderate Complexity : 1 MELO MOLINA, PT - 09/30/2020 15:14 EDT documented in this encounter Plan of Treatment Not on file documented as of this encounter Visit Diagnoses Not on filedocumented in this encounter
--- OUTSIDE RECORDS SUMMARY | 2025-01-06 10:09 | XMS_ITS | Encounter Summary ---
Author Organization [employer] ([place], [place], [place], [place]) Address [address] [place] [address] Care Team Providers Care Turning Sander Operator Name Role Phone Unavailable Primary Care Provider Unavailabl e Encounter Details Date Type Department Care Team (Late st Contact Info) Description 10/13/2020 Transcribed Document [facility] [place] [address] [place] [address] ProviderRadha MD [address] [place] [address] Social History Tobacco Use Types [...] provider. Document Revised: 07/25/2019 Document Reviewed: 12/06/2017 Else[employer] Patient Education ? 2020 [employer] Nutrition Low-Sodium Eating Plan Sodium, which [...] (monosodium glutamate). MSG is sometimes added to French food, bouillon, and some canned foods. What [...] such as ricotta cheese, fresh mozzarella, or Sri [place]ankan cheese Low-sodium or reduced-sodium cheese. Cream cheese. [...] Vegetables Sauerkraut, pickled vegetables, and relishes. Olives. North Korean fries. Onion rings. Regular canned vegetables (not [...] salad dressings. Salsa. Potato and tortilla chips. [place] chips and puffs. Salted popcorn and pretzels. [...] provider. Document Revised: 03/16/2018 Document Reviewed: 03/27/2017 [employer] Patient Education ? 2020 [employer]. Obstetrics and Gynecology Edema Edema is an [...] fluid you drink (fluid restriction). ??? Take [id number] and prescription medicines only as told by [...] provider. Document Revised: 08/21/2019 Document Reviewed: 05/06/2017 [employer] Patient Education ? 2020 [employer] documented in this encounter Plan of Treatment Not on file documented as of this encounter Visit Diagnoses Not on filedocumented in this encounter
--- OUTSIDE RECORDS SUMMARY | 2025-01-06 10:09 | XMS_ITS | Encounter Summary ---
Author Organization [employer] ([place], [place], [place], [place]) Address [address] [place] [address] Care Team Providers Care Janitor Custodian Name Role Phone Unavailable Primary Care Provider Unavailabl e Encounter Details Date Type Department Care Team (Late st Contact Info) Description 10/10/2020 Transcribed Document [facility] [place] [address] [place] [address] ProviderRadha MD [address] [place] [address] Social History Tobacco Use Types [...] Historical ProviderMD - 10/10/2020 2:00 AM CDT Art Installer Details Entered On: 10/10/2020 4:58 EDT Performed [...]
--- OUTSIDE RECORDS SUMMARY | 2025-01-06 10:09 | XMS_ITS | Encounter Summary ---
Author Organization [employer] ([place], [place], [place], [place]) Address [address] [place] [address] Care Team Providers Care Body Fitter Name Role Phone Unavailable Primary Care Provider Unavailabl e Encounter Details Date Type Department Care Team (Late st Contact Info) Description 10/06/2020 Transcribed Document [facility] [place] [address] [place] [address] ProviderRadha MD [address] [place] [address] Social History Tobacco Use Types [...] On: 10/06/2020 8:55 EDT by KAROLINA PLEITEZ Rn-Senior Behavioral ScientistChicken Cutter Progress Note Discharge Arrangements : Patient Post-Acute [...] Meeting Medical Necessity : Yes KAROLINA PLEITEZ Rn-Senior Behavioral Scientist - 10/06/2020 8:55 EDT Narrative Progress Note [...] be sent to [facility] in [place], [place] ([employer]) and [facility] in [place], [place] ([employer]). KAROLINA PLEITEZ Rn-Senior Behavioral Scientist - 10/05/20 15:28:00 HD#4; ELOS 3; MRR; BOOST 7 - GenEdema/Hypernatremia/Anasarca - 02=2L; B/P 105/58; PO Vancomycin; Midodrine 10 mg TID; lytes to be replaced; Nephrology has signed off; pt MaxAx2 w/therapy; updates sent thru [facility] to [facility] and left another message for f/u to confirm pt may return and anticipated turn around time for precert; DCP return for rehab; will likely require ambulance for transport; pt on transfer out of [facility]. KAROLINA PLEITEZ Rn-Senior Behavioral Scientist - 10/05/20 13:37:58 HD#4; ELOS 3; MRR; BOOST 7 - GenEdema/Hypernatremia/Anasarca - 02=2L; B/P 105/58; PO Vancomycin; Midodrine 10 mg TID; lytes to be replaced; Nephrology has signed off; pt MaxAx2 w/therapy; updates sent thru [facility] to [facility] and left another message for f/u to [...] CM; [place] [facility] [facility]. KAROLINA PLEITEZ, Rn-Senior Behavioral Scientist - 10/05/20 13:54:46 HD#1; ELOS 3; MRR; BOOST 7 - GenEdema/Hypernatremia/Anasarca - improving - 02=2L; Levo gtt; Midodrine; IV Bumex; Nephrology - 24 hr urine to eval for nephrotic syndrome; +CDiff; Rocephin/Doxy/Vanc; ltd work w/therapy - refusing OOB and knee/hip AROM; pt needs to be encouraged; DCP rehab - left message for [facility] [phone] to confirm receipt of referral; pt will need precert. KAROLINA PLEITEZ Rn-Senior Behavioral Scientist - 10/02/20 12:06:37 HD#1; ELOS 3; MRR; BOOST 7 - Transfer from [facility] for Generalized Edema; Nephrology consult; TD=664; RA; Doxycycline/Rocephin; met w/pt's adult children Leslie Og and Kishore Bosch ([phone]) who states DCP will be return to [facility] for ongoing rehab; explained pt will require a precert; updates [facility] to [facility] for [facility] [phone]; [phone]. KAROLINA PLEITEZ, Rn-Senior Behavioral Scientist - 10/01/20 14:32:34 KAROLINA PLEITEZ Rn-Senior Behavioral Scientist - 10/06/2020 8:55 EDT documented in this encounter Plan of Treatment Not on file documented as of this encounter Visit Diagnoses Not on filedocumented in this encounter
--- OUTSIDE RECORDS SUMMARY | 2025-01-06 10:09 | XMS_ITS | Encounter Summary ---
Author Organization [employer] ([place], [place], [place], [place]) Address [address] [place] [address] Care Team Providers Care Injection Molding Operator Name Role Phone Unavailable Primary Care Provider Unavailabl e Encounter Details Date Type Department Care Team (Late st Contact Info) Description 10/07/2020 Transcribed Document [facility] [place] [address] [place] [address] ProviderRadha MD [address] [place] [address] Social History Tobacco Use Types [...] On: 10/07/2020 7:43 EDT by KAROLINA PLEITEZ Rn-Human Resources Compensation AnalystCost Control Supervisor Progress Note Discharge Arrangements : Patient Post-Acute Information Patient Name: LUH BOSCH Gender: Female : 62 Age: 59 Years Ruth Referral(s): Service: Organization: Business Address: Phone Number: [facility] [address] [place], [address] Discharge Options Discussed with Patient : Acute rehabilitation, Discharge transportation, DME, Home Health, Short term rehabilitation Barriers to Discharge Identified : Clinical Condition of Patient, Follow-Up appointments needed Barriers to Discharge Unresolved : Clinical Condition of Patient KAROLINA PLEITEZ Rn-Human Resources Compensation Analyst - 10/07/2020 7:43 EDT Narrative Progress Note Narrative Progress Note : HD#6; ELOS 3; MRR; BOOST 7 - GenEdema/Anasarca; received voice mail from [facility] requesting additional clinical information - faxed this am; awaiting return call to confirm precert has been initiated. Historical Progress Note : Dr. Pemberton tells CM pt is ready to transition and is appropriate for precert to be initiated with short-term rehab; spoke with pt and she is in agreement to go to [facility]. Contacted [facility] and she will initiate the precert and confirm with Dr. Whittaker. KAROLINA PLEITEZ, Rn-Human Resources Compensation Analyst - 10/06/20 13:57:22 HD#5; ELOS 3; MRR; BOOST 7 - Generalized Edema/Anasarca = 02/2L; Vancomycin/Midodrine; declined to stand w/therapy - will need rehab r/t ongoing weakness; discussion w/pt's family about need for rehab - possible long-term placement if unable to progress; [facility] interested to discuss with MD; [facility] unable to meet pt's needs; continue to follow. KAROLINA PLEITEZ, Rn-Human Resources Compensation Analyst - 10/06/20 08:58:40 Received call from pt's daughter Leslie Og and she requested referrals be [facility] [place] [place] [facility] and [facility] in [place], [place] ([employer]). KAROLINA PLEITEZ Rn-Human Resources Compensation Analyst - 10/05/20 15:28:00 HD#4; ELOS 3; MRR; BOOST 7 - GenEdema/Hypernatremia/Anasarca - 02=2L; B/P 105/58; PO Vancomycin; Midodrine 10 mg TID; lytes to be replaced; Nephrology has signed off; pt MaxAx2 w/therapy; updates sent thru [facility] to [place] and left another message for f/u to confirm pt may return and anticipated turn around time for precert; DCP return for rehab; will likely require ambulance for transport; pt on transfer out of [facility]. KAROLINA PLEITEZ Rn-Human Resources Compensation Analyst - 10/05/20 13:37:58 HD#4; ELOS 3; MRR; BOOST 7 - GenEdema/Hypernatremia/Anasarca - 02=2L; B/P 105/58; PO Vancomycin; Midodrine 10 mg TID; lytes to be replaced; Nephrology has signed off; pt MaxAx2 w/therapy; updates sent thru [facility] to [place] and left another message for f/u to confirm pt may return and anticipated turn around time for precert; DCP return for rehab; will likely require ambulance for transport; pt on transfer out of [facility]. Spoke with anatoly/[facility] and advised they will be unable to meet patient's needs; referral cancelled. sophia Spoke with pt's son Kishore and advised pt may require long-term care placement; he will discuss options with his sister and advise CM; initial referrals sent thru [facility] [place]. KAROLINA PLEITEZ Rn-Human Resources Compensation Analyst - 10/05/20 13:54:46 HD#1; ELOS 3; MRR; BOOST 7 - GenEdema/Hypernatremia/Anasarca - improving - 02=2L; Levo gtt; Midodrine; IV Bumex; Nephrology - 24 hr urine to eval for nephrotic syndrome; +CDiff; Rocephin/Doxy/Vanc; ltd work w/therapy - refusing OOB and knee/hip AROM; pt needs to be encouraged; DCP rehab - left message for [facility] [phone] to confirm receipt of referral; pt will need precert. KAROLINA PLEITEZ Rn-Human Resources Compensation Analyst - 10/02/20 12:06:37 HD#1; ELOS 3; MRR; BOOST 7 - Transfer from [facility] for [facility]; Nephrology consult; OP=518; RA; Doxycycline/Rocephin; met w/pt's adult children Leslie Og and Kishore Hiro ([phone]) who states DCP will be return to [facility] for ongoing rehab; explained pt will require a precert; updates clinicals sent to [facility] and voicemail left for intake [phone]; [phone]. KAROLINA PLEITEZ Rn-Human Resources Compensation Analyst - 10/01/20 14:32:34 KAROLINA PLEITEZ Rn-Human Resources Compensation Analyst - 10/07/2020 7:43 EDT documented in this encounter Plan of Treatment Not on file documented as of this encounter Visit Diagnoses Not on filedocumented in this encounter
--- OUTSIDE RECORDS SUMMARY | 2025-01-06 10:09 | XMS_ITS | Encounter Summary ---
Author Organization [employer] ([place], [place], [place], [place]) Address [address] [place] [address] Care Team Providers Care State Pilot Name Role Phone Unavailable Primary Care Provider Unavailabl e Encounter Details Date Type Department Care Team (Late st Contact Info) Description 09/30/2020 Transcribed Document [facility] [place] [address] [place] [address] ProviderRadha MD [address] [place] [address] Social History Tobacco Use Types [...] Historical ProviderMD - 09/30/2020 2:00 AM CDT Compliance Quality Performance Analyst Details Entered On: 09/30/2020 1:26 EDT Performed [...]
--- OUTSIDE RECORDS SUMMARY | 2025-01-06 10:09 | XMS_ITS | Encounter Summary ---
Author Organization [employer] ([place], [place], [place], [place]) Address [address] [place] [address] Care Team Providers Care Senior Materials Scientist Name Role Phone Unavailable Primary Care Provider Unavailabl e Encounter Details Date Type Department Care Team (Late st Contact Info) Description 10/05/2020 Transcribed Document [facility] [place] Family Medicine [address] [place] [address] ProviderRadha MD [address] [place] [address] Social History Tobacco Use Types Packs/Day Years Used Date Smoking Tobacco: Never Assessed Comments Unknown Sex and Gender Information Value Date Recorded Sex Assigned at Not on file Legal Sex Female 7:21 PM CDT Gender Identity Not on file Sexual Orientation Not on file documented as of this encounter Miscellaneous Notes * Cerner Conversion Note - Radha Reed MD - 10/05/2020 3:27 PM CDT On Going Discharge Planning Entered On: 10/05/2020 15:28 EDT Performed On: 10/05/2020 15:27 EDT by KAROLINA PLEITEZ Rn-Corporate Accounting ManagerTexture Artist Progress Note Discharge Arrangements : Patient Post-Acute [...] : Clinical Condition of Patient KAROLINA PLEITEZ Rn-Corporate Accounting Manager - 10/05/2020 15:27 EDT Narrative Progress Note Narrative Progress Note : Received call from pt's daughter Leslie B[place] and she requested referrals be sent to [facility] in [place], [place] ([employer]) and [facility] in [place], [place] ([employer] Historical Progress Note : HD#4; ELOS 3; MRR; BOOST 7 - GenEdema/Hypernatremia/Anasarca - 02=2L; B/P 105/58; PO Vancomycin; Midodrine 10 mg TID; lytes to be replaced; Nephrology has signed off; pt MaxAx2 w/therapy; updates sent thru [facility] to [facility] and left another message for f/u to confirm pt may return and anticipated turn around time for precert; DCP return for rehab; will likely require ambulance for transport; pt on transfer out of [facility]. KAROLINA PLEITEZ Rn-Corporate Accounting Manager - 10/05/20 13:37:58 HD#4; ELOS 3; MRR; BOOST 7 - GenEdema/Hypernatremia/Anasarca - 02=2L; B/P 105/58; PO Vancomycin; Midodrine 10 mg TID; lytes to be replaced; Nephrology has signed off; pt MaxAx2 w/therapy; updates sent thru [facility] to [facility] and left another message for f/u to confirm pt may return and anticipated turn around time for precert; DCP return for rehab; will likely require ambulance for transport; pt on transfer out of [facility]. Spoke with [facility] and advised they will be unable to meet patient's needs; referral cancelled. l Spoke with pt's son Kishore and advised pt may require long-term care placement; he will discuss options with his sister and advise CM; initial referrals sent thru [facility] to [facility]. KAROLINA PLEITEZ, Brenda-Corporate Accounting Manager - 10/05/20 13:54:46 HD#1; ELOS 3; MRR; BOOST 7 - GenEdema/Hypernatremia/Anasarca - improving - 02=2L; Levo gtt; Midodrine; IV Bumex; Nephrology - 24 hr urine to eval for nephrotic syndrome; +CDiff; Rocephin/Doxy/Vanc; ltd work w/therapy - refusing OOB and knee/hip AROM; pt needs to be encouraged; DCP rehab - left message for [facility] [phone] to confirm receipt of referral; pt will need precert. KAROLINA PLEITEZ, Rn-Corporate Accounting Manager - 10/02/20 12:06:37 HD#1; ELOS 3; MRR; BOOST 7 - Transfer from [facility] for [facility]; Nephrology consult; UB=016; RA; Doxycycline/Rocephin; met w/pt's adult children Leslie Lenka and Kishore Bosch ([phone]) who states DCP will be return to [facility] for ongoing rehab; explained pt will require a precert; updates clinicals sent to [facility] and voicemail left for intake [phone]; [phone]. KAROLINA PLEITEZ, Rn-Corporate Accounting Manager - 10/01/20 14:32:34 KAROLINA PLEITEZ Rn-Corporate Accounting Manager - 10/05/2020 15:27 EDT documented in this encounter Plan of Treatment Not on file documented as of this encounter Visit Diagnoses Not on filedocumented in this encounter
--- OUTSIDE RECORDS SUMMARY | 2025-01-06 10:09 | XMS_ITS | Encounter Summary ---
Author Organization [employer] ([place], [place], [place], [place]) Address [address] [place] [address] Care Team Providers Care Knife Cutter Name Role Phone Unavailable Primary Care Provider Derrell rose Encounter Details Date Type Department Care Team (Late st Contact Info) Description 09/30/2020 Transcribed Document [facility] Family Medicine [address] [place] [address] ProviderRadha MD [address] [place] [address] Social History Tobacco Use Types [...] Rocephin: 1 Gram, 100 mL/Hr, IV Piggyback, [id number] Roxicodone: 5 mg, Oral, Q4H, PRN: Pain [...] BID, 60 Each, 0 Refill(s) Potassium Chloride (Qpq-Sjgd-Jzs 10) 10 mEq oral tablet, extended release: [...] History of obstructive sleep apnea / IMO [id number] / Confirmed, Active Problems (1) History of [...]
--- OUTSIDE RECORDS SUMMARY | 2025-01-06 10:09 | XMS_ITS | Encounter Summary ---
Author Organization [employer] ([place], [place], [place], [place]) Address [address] [place] [address] Care Team Providers Care Cupola Patcher Name Role Phone Unavailable Primary Care Provider Unavailabl e Encounter Details Date Type Department Care Team (Late st Contact Info) Description 09/30/2020 Transcribed Document [facility] [place] [address] [place] [address] ProviderRadha MD [address] [place] [address] Social History Tobacco Use Types [...] Health Plan: [employer] PPO Policy Number: [id number] Authorization Number: Insurance 2 Health Plan: MED[place]ID [place] Policy Number: [id number] Authorization Number: Insurance Primary Name : [employer] PPO Policy Number: [id number] Authorization Status-Primary : Awaiting callback Authorized Service Begin Date-Primary : 09/29/2020 EDT Historical Authorization Comments-Primary : No Authorization Comments Found Daisy Davison Rn-Utilization Review - 09/30/2020 13:07 EDT Electronically signed by Angela [facility] Conversion Firefighter Type One Cerner at 08/02/2022 6:26 PM CDT documented in this encounter Plan of Treatment Not on file documented as of this encounter Visit Diagnoses Not on filedocumented in this encounter
--- OUTSIDE RECORDS SUMMARY | 2025-01-06 10:09 | XMS_ITS | Encounter Summary ---
Author Organization [employer] ([place], [place], [place], [place]) Address [address] [place] [address] Care Team Providers Care Billet Heater Name Role Phone Unavailable Primary Care Provider Unavailabl e Encounter Details Date Type Department Care Team (Late st Contact Info) Description 10/11/2020 Transcribed Document [facility] [place] Medicine [address] [place] [address] ProvideraRdha MD [address] [place] [address] Social History Tobacco Use Types [...]
--- OUTSIDE RECORDS SUMMARY | 2025-01-06 10:09 | XMS_ITS | Encounter Summary ---
Author Organization [employer] ([place], [place], [place], [place]) Address [address] [place] [address] Care Team Providers Care Invasive Cardiovascular Technologist Name Role Phone Unavailable Primary Care Provider Unavailabl e Encounter Details Date Type Department Care Team (Late st Contact Info) Description 10/10/2020 Transcribed Document [facility] [place] Family Medicine [address] [place] [address] ProviderRadha MD [address] [place] [address] Social History Tobacco Use Types [...] mL inj 40 mg 0.4 mL, SubCutaneous, [id number] famotidine 20 mg tab 20 mg 1 [...] [facility] Samantha Melendez Hospitalist pager- [phone] documented in this encounter Plan of Treatment Not on file documented as of this encounter Visit Diagnoses Not on filedocumented in this encounter
--- OUTSIDE RECORDS SUMMARY | 2025-01-06 10:09 | XMS_ITS | Encounter Summary ---
Author Organization [employer] ([place], [place], [place], [place]) Address [address] [place] [address] Care Team Providers Care Litigation Specialist Name Role Phone Unavailable Primary Care Provider Unavailabl e Encounter Details Date Type Department Care Team (Late st Contact Info) Description 09/29/2020 Transcribed Document [facility] [place] [address] [place] [address] ProviderRadha MD [address] [place] [address] Social History Tobacco Use Types [...] #2 Relationship : son Primary Language : Jordanian Communication Barrier : None Teacher Education Instructor Needed : No Marlee Richmond RN - [...] Scale Risk Level : 25-45 Medium Risk [place] Fall Interventions : Adequate lighting, Assistive devices [...] Source : Stated Height Entry Format : [place] Height, Feet : 5 ft(Converted to: 152 cm, 60 Inch) Height, Inches : 2 Inch(Converted to: 0 ft 2 Inch, 5.08 cm) Clinical Height : 157.48 cm Weight Source : Standing scale Weight Entry Format : [place] Clinical Dosing Weight : 157.27 kg Weight, Pounds : 346 lb Body Surface Area (BSA) : 2.42 m2 Body Mass Index : 63.4 kg/m2 (>HHI) [place] Body Weight : 50 kg Marlee Richmond [...] Marlee Richmond RN - 09/29/2020 23:18 EDT [place] Suicide Severity Rating Scale (C-SSRS) CSSRS Past [...]
--- OUTSIDE RECORDS SUMMARY | 2025-01-06 10:09 | XMS_ITS | Encounter Summary ---
Author Organization [employer] ([place], [place], [place], [place]) Address [address] [place] [address] Care Team Providers Care Director Diabetes Name Role Phone Unavailable Primary Care Provider Unavailabl e Encounter Details Date Type Department Care Team (Late st Contact Info) Description 10/11/2020 Transcribed Document [facility] [place] Medicine [address] [place] [address] ProviderRadha MD [address] [place], [place] [address] Social History Tobacco Use Types Packs/Day Years [...] RIGHT EAR Provider Notified of : Family/Patient exhibit display representative requests a call Provider Notified Name : HOSSEIN CARRILLO MD Provider Notified Time : 10/11/2020 5:40 EDT Chain of Command Initiated : Yes Results to Provider Comment : DR CARRILLO told will come and see patient later as he has two transfer Yovana Whelan Non Emp RN - 10/11/2020 6:41 EDT Electronically signed by Angela [facility] Conversion City Bus Driver Cerner at 08/02/2022 6:19 PM CDT documented in this encounter Plan of Treatment Not on file documented as of this encounter Visit Diagnoses Not on filedocumented in this encounter
--- OUTSIDE RECORDS SUMMARY | 2025-01-06 10:09 | XMS_ITS | Encounter Summary ---
Author Organization [employer] ([place], [place], [place], [place]) Address [address] [place] [address] Care Team Providers Care Intelligence Analyst Name Role Phone Unavailable Primary Care Provider Unavailabl e Encounter Details Date Type Department Care Team (Late st Contact Info) Description 10/05/2020 Transcribed Document [facility] Family Medicine [address] [place] [address] ProviderRadha MD [address] [place] [address] Social History Tobacco Use Types [...] Historical ProviderMD - 10/05/2020 2:00 AM CDT Rotor Assembler Details Entered On: 10/05/2020 4:49 EDT Performed [...] No Desire Ver[employer]zco - 10/05/2020 4:49 EDT documented in this encounter Plan of Treatment Not on file documented as of this encounter Visit Diagnoses Not on filedocumented in this encounter
--- OUTSIDE RECORDS SUMMARY | 2025-01-06 10:09 | XMS_ITS | Encounter Summary ---
Author Organization [employer] ([place], [place], [place], [place]) Address [address] [place] [address] Care Team Providers Care Santa'S Helper Name Role Phone Unavailable Primary Care Provider Unavailabl e Encounter Details Date Type Department Care Team (Late st Contact Info) Description 09/30/2020 Transcribed Document [facility] [place] Family Medicine [address] [place] [address] ProviderRadha MD [address] [place] [address] Social History Tobacco Use Types [...] On: 09/30/2020 15:38 EDT by PADMA GOMEZ Process Analyst-Crew Clerk Initial Assessment I Previously Documented Living Environment [...] have PCP Listed? : No PADMA GOMEZ Process Analyst-Crew Clerk - 09/30/2020 15:38 EDT Initial Assessment II Sensory and Motor Deficits : Weakness Current Home Treatments and Equipment : Bedside commode, Walker PADMA GOMEZ Process Analyst-Crew Clerk - 09/30/2020 15:38 EDT Discharge Needs I Anticipated Discharge To, CM : Home with home health, jail facility Current Home Treatment/Equipment : Current Home Treatment/Equipment No qualifying data available. Post Acute/Home Treatments : None Documentation Status Complete : Yes PADMA GOMEZ Process Analyst-Crew Clerk - 09/30/2020 15:38 EDT Discharge Needs II Professional Skilled Services : Professional Skilled Services No qualifying data available. Needs Assistance with Transportation : Maybe Discharge Options Discussed with Patient : Acute rehabilitation, Discharge transportation, DME, Home Health, Short term rehabilitation PADMA GOMEZ Process Analyst-Crew Clerk - 09/30/2020 15:38 EDT Narrative Note Narrative Note : Patient is a moderate readmission risk of 41 Boost of 5. Patient is from [facility]. Patient reported that she doesn't want to go back there if she can walk. Patient stated that she was unable to walk today because of fluid on me . Patient stated that if she can't walk at discharge she understands she has to go back to [facility]. Patient stated that if she can she wants to go home without any services including HH. Patient denied ever having HH. CM will continue to follow. PADMA GOMEZ Process Analyst-Crew Clerk - 09/30/2020 15:38 EDT documented in this encounter Plan of Treatment Not on file documented as of this encounter Visit Diagnoses Not on filedocumented in this encounter
--- OUTSIDE RECORDS SUMMARY | 2025-01-06 10:09 | XMS_ITS | Encounter Summary ---
Author Organization [employer] ([place], [place], [place], [place]) Address [address] [place] [address] Care Team Providers Care Bed And Breakfast Operator Name Role Phone Unavailable Primary Care Provider Unavailabl e Encounter Details Date Type Department Care Team (Late st Contact Info) Description 10/05/2020 Transcribed Document [facility] [place] [address] [place] [address] ProviderRadha MD [address] [place] [address] Social History Tobacco Use Types [...] and eating ~50% of her meals. Reports service captain pt was on 800 kcal diet [...] : BMI=63.4 Weight Status : Active Mariam Cohen Dietitian - 10/05/2020 11:07 EDT Nutrition Interventions [...]
--- OUTSIDE RECORDS SUMMARY | 2025-01-06 10:09 | XMS_ITS | Encounter Summary ---
Author Organization Healthcare Address [address] [id number] Care Team Providers Care Sales Development Consultant Name Role Phone Clarence Ram MD Primary Care Provider [phone] Encounter Details Date Type Department Care Team [...] documented as of this encounter Care Teams Sales Development Consultant Relationship Specialty Start Date End Date Clarence Ram MD [address] [place] [address] PCP - General 08/28/20 documented as of this encounter
--- OUTSIDE RECORDS SUMMARY | 2025-01-06 10:09 | XMS_ITS | Encounter Summary ---
Author Organization Healthcare Address [address] [id number] Care Team Providers Care Foreign Broadcast Specialist Name Role Phone Clarence Ram MD Primary Care Provider [phone] Reason for Referral * Consultation (Routine) - Closed Specialty Diagnoses / Procedures Referred By Danilo joseph Referred To Contact Plastic Surgery Diagnoses Loose skin Excessive body weight loss Wendy Payne APRN [address] [address] Phone: tel: fax: Referral ID Status Reason Start Date Expiration Date V isits Requested Visits Authorized [id number] Closed Specialty Services Required 05/22/2024 11/21/2025 1 1 Encounter Details Date Type Department Care Team (Late st Contact Info) Description 05/22/2024 Community Orders [facility] [address] [place] [address] Wendy Payne APRN [address] [place] [address] Loose skin (Primary Dx); Excessive body weight [...] weight documented in this encounter Care Teams Foreign Broadcast Specialist Relationship Specialty Start Date End Date Clarence Ram MD [address] [place] [address] PCP - General 08/28/20 documented as of this encounter
--- OUTSIDE RECORDS SUMMARY | 2025-01-06 10:09 | XMS_ITS | Encounter Summary ---
Author Organization [employer] ([place], [place], [place], [place]) Address [address] [place] [address] Care Team Providers Care Park Guide Name Role Phone Unavailable Primary Care Provider Unavailabl e Encounter Details Date Type Department Care Team (Late st Contact Info) Description 10/05/2020 Transcribed Document [facility] [place] Family Medicine [address] [place] [address] ProviderRadha MD [address] [place] [address] Social History Tobacco Use Types [...] On: 10/05/2020 13:33 EDT by KAROLINA PLEITEZ Rn-Certified Family MediatorCollections Manager Progress Note Discharge Arrangements : Patient Post-Acute Information Patient Name: [facility] BSOCH Gender: Female : 62 Age: 59 Years No Post-Acute Placement(s) Listed No Post-Acute Service(s) Listed No [place] Referral(s) Listed Discharge Options Discussed with Patient : Acute rehabilitation, Discharge transportation, DME, Home Health, Short term rehabilitation Barriers to Discharge Identified : Clinical Condition of Patient, Follow-Up appointments needed Barriers to Discharge Unresolved : Clinical Condition of Patient KAROLINA PLEITEZ Rn-Certified Family Mediator - 10/05/2020 13:33 EDT Narrative Progress Note Narrative Progress Note : HD#4; ELOS 3; MRR; BOOST 7 - GenEdema/Hypernatremia/Anasarca - 02=2L; B/P 105/58; PO Vancomycin; Midodrine 10 mg TID; lytes to be replaced; Nephrology has signed off; pt MaxAx2 w/therapy; updates sent thru [facility] to [facility] and left another message for f/u to confirm pt may return and anticipated turn around time for precert; DCP return for rehab; will likely require ambulance for transport; [facility] and advised they will be unable to meet patient's needs; referral cancelled. l Spoke with pt's son Kishore and advised pt may require long-term care placement; he will discuss options with his sister and advise CM; initial referrals sent thru [facility] to [facility]. KAROLINA PLEITEZ Rn-Certified Family Mediator - 10/05/2020 13:53 EDT Historical Progress Note : HD#1; ELOS 3; MRR; BOOST 7 - GenEdema/Hypernatremia/Anasarca - improving - 02=2L; Levo gtt; Midodrine; IV Bumex; Nephrology - 24 hr urine to eval for nephrotic syndrome; +CDiff; Rocephin/Doxy/Vanc; ltd work w/therapy - refusing OOB and knee/hip AROM; pt needs to be encouraged; DCP rehab - left message for [facility] [phone] to confirm receipt of referral; pt will need precert. KAROLINA PLEITEZ Rn-Certified Family Mediator - 10/02/20 12:06:37 HD#1; ELOS 3; MRR; BOOST 7 - Transfer [facility] for [facility]; Nephrology consult; MV=011; RA; Doxycycline/Rocephin; met w/pt's adult children Leslie Og and Kishore Bosch ([phone]) who states DCP will be return to [facility] for ongoing rehab; explained pt will require a precert; updates clinicals sent to [facility] and voicemail left for intake [phone]; [phone]. KAROLINA PLEITEZ Rn-Certified Family Mediator - 10/01/20 14:32:34 KAROLINA PLEITEZ, Rn-Certified Family Mediator - 10/05/2020 13:33 EDT documented in this encounter Plan of Treatment Not on file documented as of this encounter Visit Diagnoses Not on filedocumented in this encounter
--- OUTSIDE RECORDS SUMMARY | 2025-01-06 10:09 | XMS_ITS | Encounter Summary ---
Author Organization [employer] ([place], [place], [place], [place]) Address [address] [place] [address] Care Team Providers Care Outpatient Admitting Clerk Name Role Phone Unavailable Primary Care Provider Unavailabl e Encounter Details Date Type Department Care Team (Late st Contact Info) Description 10/11/2020 Transcribed Document [facility] [place] [address] [place] [address] ProviderRadha MD [address] [place] [address] Social History Tobacco Use Types [...]
--- OUTSIDE RECORDS SUMMARY | 2025-01-06 10:09 | XMS_ITS | Encounter Summary ---
Author Organization [employer] ([place], [place], [place], [place]) Address [address] [place] [address] Care Team Providers Care Insulation Foreman Name Role Phone Unavailable Primary Care Provider Unavailabl e Encounter Details Date Type Department Care Team (Late st Contact Info) Description 10/06/2020 Transcribed Document [facility] Radiology [address] [place] [address] Malu Pemberton MD [address] [place] [address] [place] [id number] Social History Tobacco Use Types Packs/Day Years [...]
--- OUTSIDE RECORDS SUMMARY | 2025-01-06 10:09 | XMS_ITS | Encounter Summary ---
Author Organization [employer] ([place], [place], [place], [place]) Address [address] [place] [address] Care Team Providers Care Technical Consultant Name Role Phone Unavailable Primary Care Provider Unavailabl e Encounter Details Date Type Department Care Team (Late st Contact Info) Description 10/07/2020 Transcribed Document [facility] Radiology [address] [place] [address] Malu Pemberton MD [address] [place], [place] [id number] Social History Tobacco Use Types Packs/Day Years [...]
--- OUTSIDE RECORDS SUMMARY | 2025-01-06 10:09 | XMS_ITS | Encounter Summary ---
Author Organization [employer] ([place], [place], [place], [place]) Address [address] [place] [address] Care Team Providers Care Customer Assistance Associate Name Role Phone Unavailable Primary Care Provider Unavailabl e Encounter Details Date Type Department Care Team (Late st Contact Info) Description 09/30/2020 Transcribed Document [facility] [place] Family Medicine [address] [place] [address] ProviderRadha MD [address] [place] [address] Social History Tobacco Use Types [...] gross volume overload, has been transferred to [facility] from [facility] with hyponatremia. The patient has been having [...] or illicit drug use. [facility]. FAMILY HISTORY: Dad currently from [place]. No family history of kidney disease. PHYSICAL [...] pedal edema. No cyanosis. Peripheral pulses palpable. LEADITE HEATER: No focal deficit noted grossly. Cranial nerves [...] We will follow along with other physicians. /[id number] Anabel Spring MD MA/JOHANNA / NGUYỄN / MODL /[id number] Electronically signed by Angela, [facility] Conversion Relationship Consultant Cerner at 08/02/2022 6:13 PM CDT documented in this encounter Plan of Treatment Not on file documented as of this encounter Visit Diagnoses Not on filedocumented in this encounter
--- OUTSIDE RECORDS SUMMARY | 2025-01-06 10:09 | XMS_ITS | Encounter Summary ---
Author Organization [employer] ([place], [place], [place], [place]) Address [address] [place] [address] Care Team Providers Care Airport Electrician Name Role Phone Unavailable Primary Care Provider Unavailabl e Encounter Details Date Type Department Care Team (Late st Contact Info) Description 09/30/2020 Transcribed Document [facility] [place] [address] [place] [address] ProviderRadha MD [address] [place] [address] Social History Tobacco Use Types [...]
--- OUTSIDE RECORDS SUMMARY | 2025-01-06 10:09 | XMS_ITS | Encounter Summary ---
Author Organization [employer] ([place], [place], [place], [place]) Address [address] [place] [address] Care Team Providers Care Universal Winding Machine Operator Name Role Phone Unavailable Primary Care Provider Unavailabl e Encounter Details Date Type Department Care Team (Late st Contact Info) Description 10/05/2020 Transcribed Document [facility] Radiology [address] [place] [address] Malu Pemberton MD [address] [place], [place] [address] Social History Tobacco Use Types Packs/Day Years [...]
--- OUTSIDE RECORDS SUMMARY | 2025-01-06 10:09 | XMS_ITS | Encounter Summary ---
Author Organization [employer] ([place], [place], [place], [place]) Address [address] [place] [address] Care Team Providers Care Hospital Unit Coordinator Name Role Phone Unavailable Primary Care Provider Unavailabl e Encounter Details Date Type Department Care Team (Late st Contact Info) Description 09/29/2020 Transcribed Document [facility] Family Medicine [address] [place] [address] ProviderRadha MD [address] [place] [address] Social History Tobacco Use Types [...]
--- OUTSIDE RECORDS SUMMARY | 2025-01-06 10:09 | XMS_ITS | Encounter Summary ---
Author Organization [employer] ([place], [place], [place], [place]) Address [address] [place] [address] Care Team Providers Care Business Relations Manager Name Role Phone Unavailable Primary Care Provider Unavailabl e Encounter Details Date Type Department Care Team (Late st Contact Info) Description 10/10/2020 Transcribed Document [facility] [place] Family Medicine [address] [place] [address] ProviderRadha MD [address] [place] [address] Social History Tobacco Use Types [...]
--- OUTSIDE RECORDS SUMMARY | 2025-01-06 10:09 | XMS_ITS | Encounter Summary ---
Author Organization [employer] ([place], [place], [place], [place]) Address [address] [place] [address] Care Team Providers Care Metal Burnisher Name Role Phone Unavailable Primary Care Provider Unavailabl e Encounter Details Date Type Department Care Team (Late st Contact Info) Description 10/13/2020 Transcribed Document [facility] [place] Family Medicine [address] [place] [address] ProviderRadha MD [address] [place] [address] Social History Tobacco Use Types [...] Kaitlyn Hess RN-TRAVELER - 10/13/2020 6:37 EDT Electronically signed by Angela rickie Conversion Senior Java Web Application Developer Cerner at 08/02/2022 6:07 PM CDT documented in this encounter Plan of Treatment Not on file documented as of this encounter Visit Diagnoses Not on filedocumented in this encounter
--- OUTSIDE RECORDS SUMMARY | 2025-01-06 10:09 | XMS_ITS | Encounter Summary ---
Author Organization [employer] ([place], [place], [place], [place]) Address [address] [place] [address] Care Team Providers Care Manager Technical Services Name Role Phone Unavailable Primary Care Provider Unavailabl e Encounter Details Date Type Department Care Team (Late st Contact Info) Description 10/12/2020 Transcribed Document [facility] [place] [address] [place] [address] ProviderRadha MD [address] [place] [address] Social History Tobacco Use Types [...] On: 10/12/2020 12:16 EDT by BHARGAVI MEYER, RN-Residential Living AssistantCommand Center Officer Progress Note Discharge Arrangements : Patient Post-Acute Information Patient Name: LUH BOSCH Gender: Female : 62 Age: 59 Years No Post-Acute Placement(s) Listed No Post-Acute Service(s) Listed No [place] Referral(s) Listed Discharge Options Discussed with Patient : Acute rehabilitation, Discharge transportation, DME, Home Health, Short term rehabilitation Barriers to Discharge Identified : No halfway bed available Barriers to Discharge Unresolved : No halfway bed available, Other: precert Is the Patient Meeting Medical Necessity : No Did you Document Avoidable Days? : Yes Did you Attend Multidisciplinary Rounds? : Yes BHARGAVI MEYER, SUSANA-Residential Living Assistant - 10/12/2020 12:16 EDT Narrative Progress Note Narrative Progress Note : ELOS 3, hospital day 912 RRS 59 Rebecca updated per radha. For hopeful precert initiated at [facility]. EMS arranged for 10/14@1100, trip # [id number]. Bariatric bed and bariatric stretcher requested at snf and ems. Historical Progress Note : ELOS 3, hospital day 8, RRS 59, she needs a shelter care skilled bed, referrals sent to Radha mcarthur with [facility] assessing for bariatric bed at [facility] or [facility] LIAM COWAN Rn-Residential Living Assistant - 10/08/20 17:55:50 Received call from [facility] [phone] advising CM their facility is unable to meet pt's needs - r/t C-Diff; weight - non-ambulatory w/ bed activity; [facility] - notified CM. KAROLINA PLEITEZ Rn-Residential Living Assistant - 10/07/20 11:01:00 HD#6; ELOS 3; MRR; BOOST 7 - GenEdema/Anasarca; received voice mail from [facility] - DON requesting additional clinical information - faxed this am; awaiting return call to confirm precert has been initiated. KAROLINA PLEITEZ Rn-Residential Living Assistant - 10/07/20 07:45:25 Dr. Pemberton tells CM pt is ready to transition and is appropriate for precert to be initiated with short-term rehab; spoke with pt and she is in agreement to go to [facility]. Contacted [facility] and she will initiate the precert and confirm with Dr. Whittaker. KAROLINA PLEITEZ Rn-Residential Living Assistant - 10/06/20 13:57:22 HD#5; ELOS 3; MRR; BOOST 7 - Generalized Edema/Anasarca = 02/2L; Vancomycin/Midodrine; declined to stand w/therapy - will need rehab r/t ongoing weakness; discussion w/pt's family about need for rehab - possible long-term placement if unable to progress; [facility] interested to discuss with ; [facility] unable to meet pt's needs; continue to follow. KAROLINA PLEITEZ Rn-Residential Living Assistant - 10/06/20 08:58:40 Received call from pt's daughter Leslie Og and she requested referrals be sent to [facility] in [place], [place] ([employer]) and [facility] in [place], [place] ([employer]). KAROLINA PLEITEZ Rn-Residential Living Assistant - 10/05/20 15:28:00 HD#4; ELOS 3; MRR; BOOST 7 - GenEdema/Hypernatremia/Anasarca - 02=2L; B/P 105/58; PO Vancomycin; Midodrine 10 mg TID; lytes to be replaced; Nephrology has signed off; pt MaxAx2 w/therapy; updates sent thru [facility] to [facility] and left another message for f/u to confirm pt may return and anticipated turn around time for precert; DCP return for rehab; will likely require ambulance for transport; pt on transfer out of [facility]. KAROLINA PLEITEZ Rn-Residential Living Assistant - 10/05/20 13:37:58 HD#4; ELOS 3; MRR; BOOST 7 - GenEdema/Hypernatremia/Anasarca - 02=2L; B/P 105/58; PO Vancomycin; Midodrine 10 mg TID; lytes to be replaced; Nephrology has signed off; pt MaxAx2 w/therapy; updates sent thru [facility] to [facility] and left another message for f/u to confirm pt may return and anticipated turn around time for precert; DCP return for rehab; will likely require ambulance for transport; pt on transfer out of [facility]. Spoke with [facility] and advised they will be unable to meet patient's needs; referral cancelled. sophia Spoke with pt's son Kishore and advised pt may require long-term care placement; he will discuss options with his sister and advise ; [facility]. KAROLINA PLEITEZ Rn-Residential Living Assistant - 10/05/20 13:54:46 HD#1; ELOS 3; MRR; BOOST 7 - GenEdema/Hypernatremia/Anasarca - improving - 02=2L; Levo gtt; Midodrine; IV Bumex; Nephrology - 24 hr urine to eval for nephrotic syndrome; +CDiff; Rocephin/Doxy/Vanc; ltd work w/therapy - refusing OOB and knee/hip AROM; pt needs to be encouraged; DCP rehab - left message for [facility] [phone] to confirm receipt of referral; pt will need precert. KAROLINA PLEITEZ, Rn-Residential Living Assistant - 10/02/20 12:06:37 HD#1; ELOS 3; MRR; BOOST 7 - Transfer from [facility] for Generalized Edema; Nephrology consult; YG=225; RA; Doxycycline/Rocephin; met w/pt's adult children Leslie Og and Kishore Bosch ([phone]) who states DCP will be return to [facility] for ongoing rehab; explained pt will require a precert; updates clinicals sent to [facility] and voicemail left for intake [phone]; [phone]. KAROLINA PLEITEZ, Rn-Residential Living Assistant - 10/01/20 14:32:34 BHARGAVI MEYER, RN-Residential Living Assistant - 10/12/2020 12:16 EDT documented in this encounter Plan of Treatment Not on file documented as of this encounter Visit Diagnoses Not on filedocumented in this encounter
--- OUTSIDE RECORDS SUMMARY | 2025-01-06 10:09 | XMS_ITS | Encounter Summary ---
Author Organization [employer] ([place], [place], [place], [place]) Address [address] [place] [address] Care Team Providers Care Recreation Engineer Name Role Phone Unavailable Primary Care Provider Unavailabl e Encounter Details Date Type Department Care Team (Late st Contact Info) Description 09/30/2020 Transcribed Document [facility] [place] Family Medicine [address] [place] [address] ProviderRadha MD [address] [place] [address] Social History Tobacco Use Types Packs/Day [...] Treatment Ordered By: JADE CURIEL DO 09/30/2020 15:51 PT Additional Treatment [...] Maximal assistance (Comment: x 2 [JO-ANN MILES [facility] 10/07/2020 12:32 EDT] ) Bed Roll Right : Rehab Maximal assistance (Comment: x 2 [JO-ANN MILES, [facility] 10/07/2020 12:32 EDT] ) Bed Scooting : Rehab Total assistance (Comment: x 2 [JO-ANN MILES, [facility] 10/07/2020 12:32 EDT] ) JO-ANN MILES [facility] 10/07/2020 12:32 EDT Gait Training/Assessment, PT Gait Assistance Level : Unable to assess/activity not appropriate Gait Training Comment : pt not agreeable to OOB today JO-ANN MILES [facility] 10/07/2020 12:32 EDT Cognitive Treatment, PT Orientation : Oriented x 4 JO-ANN MILES [facility] 10/07/2020 12:32 EDT Edu Topics Physical Therapy Education Grid Bed Mobility Training : Needs further teaching Gait Training : Needs further teaching Role of Physical Therapy : Verbalizes understanding Safety : Needs further teaching Transfer Training : Needs further teaching JO-ANN MILES [facility] 10/07/2020 12:32 EDT Indication Assesessment, PT Physical Therapy Indicated : Yes JO-ANN MILES [facility] 10/07/2020 12:32 EDT Plan of Care, PT PT Tx Plan/Goals Established w Patient : Yes JO-ANN MILES [facility] 10/07/2020 12:32 EDT Short Term Goals Mobility/Bed Mobility STG PT Grid Goal #1 Goal #2 Activity : Supine to sit Assist : Assist, maximal Date to Meet : 10/07/2020 EDT Goal Status : Progressing, continue Comment : SEE GOALS BELOW JO-ANN MILES [facility] 10/07/2020 12:32 EDT JO-ANN MILES [facility] 10/07/2020 12:32 EDT Other PT STG Grid Goal #1 Goal #2 Goal : Pt will maintain static sit EOB up to 5 min with supervision Pt will tolerate AROM exercises with BLE's x 10 reps each Date to Meet : 10/07/2020 EDT 10/07/2020 EDT Goal Status : Goal met Goal met Date Met : 10/04/2020 EDT 10/04/2020 EDT MILESJO-ANN, MIGRATION SPECIALIST - 10/07/2020 12:32 EDT JO-ANN MILES, MIGRATION SPECIALIST - 10/07/2020 12:32 EDT Night Nurse Goals Mobility/Bed Mobility LTG PT Grid Goal #1 Goal #2 Activity : Supine to sit Sit to stand Assist : Assist, moderate Assist, moderate Equipment : Other: adenike RWx Date to Meet : 10/14/2020 EDT 10/14/2020 EDT Goal Status : Progressing, continue Intial Goal MILESKALAEN, MIGRATION SPECIALIST - 10/07/2020 12:32 EDT GINGERKALAEN, ARTURO - 10/07/2020 12:32 EDT Transfer LTG Grid Goal #1 Destination : Chair, with arms Type : Stand Pivot Sit Assist : Assist, moderate Date to Meet : 10/14/2020 EDT Goal Status : Intial Goal JO-ANN MILES, MIGRATION SPECIALIST - 10/07/2020 12:32 EDT Ambulation LTG Grid Goal #1 Device : Other: [facility] RWx Distance : 20 ft Assist : [...] 10/07/2020 12:[address] [facility] PT Charges MIGRATION SPECIALIST PT Ther Activities Ea 15 Min-MIGRATION SPECIALIST : 2 JO-ANN MILES PTA - 10/07/2020 12:32 EDT Electronically signed by [facility], [facility] Conversion Education Instructor Cerner at 08/05/2022 9:06 AM CDT documented in this encounter Plan of Treatment Not on file documented as of this encounter Visit Diagnoses Not on filedocumented in this encounter
--- OUTSIDE RECORDS SUMMARY | 2025-01-06 10:09 | XMS_ITS | Encounter Summary ---
Author Organization [employer] ([place], [place], [place], [place]) Address [address] [place] [address] Care Team Providers Care Organisational Psychologist Name Role Phone Unavailable Primary Care Provider Unavailabl e Encounter Details Date Type Department Care Team (Late st Contact Info) Description 10/05/2020 Transcribed Document [facility] [place] [address] [place] [address] ProviderRadha MD [address] [place] [address] Social History Tobacco Use Types [...]
--- OUTSIDE RECORDS SUMMARY | 2025-01-06 10:09 | XMS_ITS | Clinical Summary ---
Author Organization [facility] Address [address] [place] [address] Care Team Providers Care Call Center Support Consultant Name Role Phone Clarence Ram MD Primary Care Provider [phone] Allergies Active Allergy Reactions Criticality Noted Date [...] - 11/08/2024 11:59 PM EDT Hospital Encounter [facility] [address] [place] [address] Excessive and redundant skin and [...] Cancer Screening 2006 [facility]-Breast Cancer Screening 11/15/2011 [id number] Vaccine (3 - Pfizer risk series) 09/29/2020 [...] from Last 3 Months Insurance [id number] [id number] MED[place] HUMANA MEDICARE Care Teams Call Center Support Consultant Relationship Specialty Start Date End Date Clarence Ram MD [address] [place] [address] PCP - General 08/28/20
--- OUTSIDE RECORDS SUMMARY | 2025-01-06 10:09 | XMS_ITS | Patient Health Record ---
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) Active confirmed Problem Hypotension due to drugs (253187101) Hypotension due to drugs (I95.2) Active confirmed Problem Gastro-esophageal reflux disease without esophagitis (994991952) Gastro-esophageal reflux disease without esophagitis (K21.9) Active confirmed Problem Cirrhosis of liver (55946799) Other cirrhosis of liver (K74.69) Active confirmed Problem Ascites (138848839) Other ascites (R18.8) Active confirmed Problem Hyponatremia (94534880) Hyponatremia (E87.1) Active confirmed Problem Hypothyroidism (70230080) Hypothyroidism (E03.9) Active confirmed Problem Mixed hyperlipidemia (071283915) Hyperlipemia, mixed (E78.2) Active confirmed Problem 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) Active confirmed Problem Peripheral edema (06539422) Peripheral edema (R60.9) Active confirmed Problem Diabetes mellitus type 2 (98087870) Diabetes mellitus type 2, uncontrolled (E11.65) Active confirmed Problem Edema (504095000) Edema leg (R60.0) Active conf irmed Problem Clostridial gastroenteritis (49360545) Enterocolitis due to Clostridium difficile, not specified [...] Coverage End Date HUMANA MEDICARE [address] [address] [place] [address] [id number] PEPE GLASS Self - patient is the insured Medicaid of [place] UR[place] [address] [place] [address] [id number] PEPE GLASS Self - patient is the insured Medical (General) History Surgical History Surgery Date(Month/Year) GALLBLADDER 2004 HYSTERECTOMY 2001 HAND 1988 Hospitalization History Reason Date(Month/Year) [facility] 11/2020
--- OUTSIDE RECORDS SUMMARY | 2025-01-06 10:09 | XMS_ITS | Encounter Summary ---
Author Organization [employer] ([place], [place], [place], [place]) Address [address] [place] [address] Care Team Providers Care Labor Relations Teacher Name Role Phone Unavailable Primary Care Provider Unavailabl e Encounter Details Date Type Department Care Team (Late st Contact Info) Description 09/30/2020 Transcribed Document [facility] Family Medicine [address] [place] [address] ProviderRadha MD [address] [place] [address] Social History Tobacco Use Types [...] HEIDI PORRAS OTR/Susanna - 10/12/2020 15:06 EDT Network Security Consultant Goals, OT Grooming LTG Grid Goal #1 [...] 10/12/2020 15:06 EDT Electronically signed by [facility] Conversion Stripper Color Cerner at 08/05/2022 9:05 AM CDT documented in this encounter Plan of Treatment Not on file documented as of this encounter Visit Diagnoses Not on filedocumented in this encounter
--- OUTSIDE RECORDS SUMMARY | 2025-01-06 10:09 | XMS_ITS | Encounter Summary ---
Author Organization [employer] ([place], [place], [place], [place]) Address [address] [place] [address] Care Team Providers Care Hha Name Role Phone Unavailable Primary Care Provider Unavailabl e Encounter Details Date Type Department Care Team (Late st Contact Info) Description 10/12/2020 Transcribed Document [facility] [place] [address] [place] [address] ProviderRadha MD [address] [place] [address] Social History Tobacco Use Types [...] Historical ProviderMD - 10/12/2020 2:00 AM CDT Pulp Grinder Details Entered On: 10/12/2020 3:10 EDT Performed [...]
--- OUTSIDE RECORDS SUMMARY | 2025-01-06 10:09 | XMS_ITS | Encounter Summary ---
Author Organization [employer] ([place], [place], [place], [place]) Address [address] [place] [address] Care Team Providers Care Charting Clerk Name Role Phone Unavailable Primary Care Provider Unavailabl e Encounter Details Date Type Department Care Team (Late st Contact Info) Description 09/29/2020 Transcribed Document [facility] [place] [address] [place] [address] ProviderRadha MD [address], [place] [address] Social History Tobacco Use Types Packs/Day Years [...]
--- OUTSIDE RECORDS SUMMARY | 2025-01-06 10:09 | XMS_ITS | Encounter Summary ---
Author Organization [employer] ([place], [place], [place], [place]) Address [address] [place] [address] Care Team Providers Care Staff Radiologist Name Role Phone Unavailable Primary Care Provider Unavailabl e Encounter Details Date Type Department Care Team (Late st Contact Info) Description 09/30/2020 Transcribed Document [facility] [place] [address] [place] [address] ProviderRadha MD [address] [place] [address] Social History Tobacco Use Types [...]
--- OUTSIDE RECORDS SUMMARY | 2025-01-06 10:09 | XMS_ITS | Encounter Summary ---
Author Organization [employer] ([place], [place], [place], [place]) Address [address] [place] [address] Care Team Providers Care Hot Pipe Gauger Name Role Phone Unavailable Primary Care Provider Unavailabl e Encounter Details Date Type Department Care Team (Late st Contact Info) Description 09/30/2020 Transcribed Document [facility] [place] [address] [place] [address] ProviderRadha MD [address] [place] [address] Social History Tobacco Use Types [...] and eating ~50% of her meals. Reports tug captain pt was on 800 kcal diet [...]
--- OUTSIDE RECORDS SUMMARY | 2025-01-06 10:09 | XMS_ITS | Encounter Summary ---
Author Organization [employer] ([place], [place], [place], [place]) Address [address] [place] [address] Care Team Providers Care Patrol Guard Name Role Phone Unavailable Primary Care Provider Unavailabl e Encounter Details Date Type Department Care Team (Late st Contact Info) Description 09/30/2020 Transcribed Document [facility] [place] [address] [place] [address] ProviderRadha MD [address] [place] [address] Social History Tobacco Use Types [...] Health Plan: HUMANA CHOICE PPO Policy Number: [id number] Authorization Number: Insurance 2 Health Plan: [place] Policy Number: [id number] Authorization Number: Insurance Primary Name : HUMANA CHOICE PPO Policy Number: [id number] Authorization Status-Primary : Awaiting callback Reference Number-Primary : [id number] Authorized Service Begin Date-Primary : 09/29/2020 EDT [...]
--- OUTSIDE RECORDS SUMMARY | 2025-01-06 10:09 | XMS_ITS | Encounter Summary ---
Author Organization [employer] ([place], [place], [place], [place]) Address [address] [place] [address] Care Team Providers Care Vest Tailor Name Role Phone Unavailable Primary Care Provider Unavailabl e Encounter Details Date Type Department Care Team (Late st Contact Info) Description 10/13/2020 Transcribed Document [facility] [place] Family Medicine [address] [place] [address] ProviderRadha MD [address] [place] [address] Social History Tobacco Use Types [...] Reed MD - 10/13/2020 10:28 AM CDT [facility] [place], [place] [id number] LUH BOSCH :1960 Visit Time:09/30/2020 Your Visit Summary Your Care Team Admitting Physician - HOSSEIN CARRILLO MD Attending Physician - SAMANTHA GRERE, DO Primary Care Physician - CASI, NOT [...] (monosodium glutamate). MSG is sometimes added to [place]ian food, bouillon, and some canned foods. What [...] such as ricotta cheese, fresh mozzarella, or [place]i cheese Low-sodium or reduced-sodium cheese. Cream cheese. [...] Vegetables Sauerkraut, pickled vegetables, and relishes. Olives. [place] Citizen fries. Onion rings. Regular canned vegetables (not [...] salad dressings. Salsa. Potato and tortilla chips. [place] chips and puffs. Salted popcorn and pretzels. [...] provider. Document Revised: 03/16/2018 Document Reviewed: 03/27/2017 [employer] Patient Education ?? 2020 [employer] Edema Edema is an abnormal buildup [...] fluid you drink (fluid restriction). ??? Take [id number]-[id number] and prescription medicines only as told by [...] provider. Document Revised: 08/21/2019 Document Reviewed: 05/06/2017 [employer] Patient Education ?? 2020 [employer] Fluid Restriction With some health conditions, [...] Reviewed: 12/06/2017 Elsevier Patient Education ?? 2020 [employer] Emergency Awareness and Preventative Care STROKE [...] Assistance with quitting is available by contacting 8-316-TAZWNOW. This is a free resource providing counseling, support, and referral. Or you may contact your personal physician. [place] [facility]: The National Suicide Prevention Lifeline is [...] range between ( 0.0 and 7.0 ) [place] #: 0.40 K/uL -- Normal range between ( 0.16 and 1.00 ) [place] #: 0.15 x10(3)/uL -- Normal range between ( 0.00 and 0.80 ) [place] %: 5.2 % -- Normal range between [...] /LPF Urine Bilirubin Dipstick: Negative Urine Specific [place]: 1.010 -- Normal range between ( 1.005 [...] Creatinine Urine Random: 30 mg/dL Protein Ur [place]: 24 mg/dL 10/01/2020 5:49 AM Urea Nitrogen Urine Random: 390 mg/dL Osmolality Urine: 284 mOsm/kg -- Normal range between ( 50 and 1400 ) Sodium Ur [place]: 18 mMole/Liter General Chemistry 10/13/2020 6:05 AM [...] was given the opportunity to ask questions. Patient/Garment Parts Cutter Hand Name: Patient/Garment Parts Cutter Hand Signature: Relationship to Patient: Clinician/Hospital Garment Parts Cutter Hand Signature: Date: documented in this encounter Plan of Treatment Not on file documented as of this encounter Visit Diagnoses Not on filedocumented in this encounter
--- OUTSIDE RECORDS SUMMARY | 2025-01-06 10:09 | XMS_ITS | Encounter Summary ---
Author Organization [employer] ([place], [place], [place], [place]) Address [address] [place] [address] Care Team Providers Care Full Decator Operator Name Role Phone Unavailable Primary Care Provider Unavailabl e Encounter Details Date Type Department Care Team (Late st Contact Info) Description 10/13/2020 Transcribed Document [facility] [place] [address] [place] [address] ProviderRadha MD [address] [place] [address] Social History Tobacco Use Types [...] Discharge Date: 10/13/2020 Discharge Information discharge to [facility] Physical Examination VS/Measurements Vitals Signs (last 24 [...] Results (Current Encounter/Past 24 Hours) Bun/Creatinine 67.5 FL 10/12/2020 09:09 eGFR >60 mL/min/1.73m2 10/12/2020 09:09 eGFR NonAfrican >60 mL/min/1.73m2 10/12/2020 09:09 Creatinine Level 0.40 mg/dL LOW 10/12/2020 09:09 Sodium Level 141 mmol/L 10/12/2020 09:09 Potassium Level 3.6 mmol/L 10/12/2020 09:09 Chloride Level 103 mmol/L 10/12/2020 09:09 Carbon Dioxide Level 29 mmol/L 10/12/2020 09:09 Anion Gap 13 10/12/2020 09:09 Blood Urea Nitrogen 27 mg/dL FL 10/12/2020 09:09 Glucose Level 88 mg/dL 10/12/2020 [...] of gross fluid overload was transferred to [facility] from [facility] with hyponatremia. The patient story is that on 07/25, she weighed 230 pounds, with a history of having some mild lower extremity edema. She reports she gained approximately 100 pounds of water weight in 3 days on 07/28. She was hospitalized at [facility], was intermittently hypotensive and having lower extremity weakness. She improved and was discharged back to [facility], where for the past 2 weeks [...] dose bumex. she is being discharged to [facility]hab on 10/13. Discharge Follow Up Follow [...]
--- OUTSIDE RECORDS SUMMARY | 2025-01-06 10:09 | XMS_ITS | Encounter Summary ---
Author Organization [employer] ([place], [place], [place], [place]) Address [address] [place] [address] Care Team Providers Care Behavioral Technician Name Role Phone Unavailable Primary Care Provider Unavailabl e Encounter Details Date Type Department Care Team (Late st Contact Info) Description 10/06/2020 Transcribed Document [facility] [place] [address] [place] [address] ProviderRadha MD [address] [place] [address] Social History Tobacco Use Types [...] MAURICIO DIAZ RN - 10/06/2020 18:42 EDT documented in this encounter Plan of Treatment Not on file documented as of this encounter Visit Diagnoses Not on filedocumented in this encounter
--- OUTSIDE RECORDS SUMMARY | 2025-01-06 10:09 | XMS_ITS | Encounter Summary ---
Author Organization [employer] ([place], [place], [place], [place]) Address [address] [place] [address] Care Team Providers Care Solar Installation Manager Name Role Phone Unavailable Primary Care Provider Unavailabl e Encounter Details Date Type Department Care Team (Late st Contact Info) Description 10/05/2020 Transcribed Document [facility] [place] [address] [place] [address] ProviderRadha MD [address] [place] [address] Social History Tobacco Use Types [...] 10/05/2020 4:49 EDT Electronically signed by Angela Cox Br[place] Conversion Home Planning Consultant Salesperson Cerner at 08/02/2022 6:14 PM CDT documented in this encounter Plan of Treatment Not on file documented as of this encounter Visit Diagnoses Not on filedocumented in this encounter
--- OUTSIDE RECORDS SUMMARY | 2025-01-06 10:09 | XMS_ITS | Encounter Summary ---
Author Organization [employer] ([place], [place], [place], [place]) Address [address] [place] [address] Care Team Providers Care Editorial Cartoonist Name Role Phone Unavailable Primary Care Provider Unavailabl e Encounter Details Date Type Department Care Team (Late st Contact Info) Description 10/13/2020 Transcribed Document [facility] [place] [address] [place] [address] ProviderRadha MD [address] [place] [address] Social History Tobacco Use Types [...] On: 10/13/2020 8:47 EDT by PADMA GOMEZ, Bezel Cutter-Radio Control Crane Operator Final Discharge Planning Is Patient High/Moderate Readmission Risk? : Yes Patient/Family Notified of Plan : Yes Support Person/Pt Rep Notified of Plan : Yes Is Patient Ready for Discharge? : Yes Physician Notified Patient is Ready for Discharge? : Yes Discharge To Care Management : SNF with Medicare Certification-03 PADMA GOMEZ Bezel Cutter-Radio Control Crane Operator - 10/13/2020 8:49 EDT Discharge Arrangements : [...] Up Appointment Scheduled : No PADMA GOMEZ, Bezel Cutter-Radio Control Crane Operator - 10/13/2020 8:47 EDT Final Narrative Note Final Narrative Note : Patient is a moderate readmission risk. Patient is discharging to [facility] today at 11 by [facility]. Patient stated that her family is aware. No other needs identified. PADMA GOMEZ, Bezel Cutter-Radio Control Crane Operator - 10/13/2020 8:49 EDT documented in this encounter Plan of Treatment Not on file documented as of this encounter Visit Diagnoses Not on filedocumented in this encounter
--- OUTSIDE RECORDS SUMMARY | 2025-01-06 10:09 | XMS_ITS | Encounter Summary ---
Author Organization [employer] ([place], [place], [place], [place]) Address [address] [place] [address] Care Team Providers Care Cow Tester Name Role Phone Unavailable Primary Care Provider Unavailabl e Encounter Details Date Type Department Care Team (Late st Contact Info) Description 10/12/2020 Transcribed Document [facility] [place] Family Medicine [address] [place] [address] ProviderRadha MD [address] [place] [address] Social History Tobacco Use [...] On: 10/12/2020 16:21 EDT by BHARGAVI MEYER RN-Physical Plant EmployeeFondant Cooker Progress Note Discharge Arrangements : Patient Post-Acute Information Patient Name: LUH BOSCH Gender: Female : 62 Age: 59 Years No Post-Acute Placement(s) Listed No Post-Acute Service(s) Listed No Curaspan Referral(s) Listed Discharge Options Discussed with Patient : Acute rehabilitation, Discharge transportation, DME, Home Health, Short term rehabilitation Barriers to Discharge Identified : [place] [facility] Barriers to Discharge Unresolved : No [place] [facility] [place], Other: precert Patient Offered Choice/Affiliations Explained : Yes BHARGAVI MEYER RN-Physical Plant Employee - 10/12/2020 16:21 EDT Narrative Progress Note Narrative Progress Note : precert approved for [facility] and ems arranged for 10/13@1100. attending and pt aware and agreed. per pt, left vm on dtr's line. mariama from [facility] updated. Historical Progress Note : ELOS 3, hospital day 912 RRS 59 [facility] updated per mariama. For hopeful precert initiated at [facility] EMS arranged for 10/14@1100, trip # [id number]. Bariatric bed and bariatric stretcher requested at snf and ems. BHARGAVI MEYER, SUSANA-Physical Plant Employee - 10/12/20 12:17:36 ELOS 3, hospital day 8, RRS 59, she needs a snf care skilled bed, referrals sent to Mariama mcarthur with [facility] assessing for bariatric bed at [facility] or [facility] LIAM COWAN Rn-Physical Plant Employee - 10/08/20 17:55:50 Received call from [facility] [phone] advising CM their facility is unable to meet pt's needs - r/t C-Diff; weight - non-ambulatory w/ bed activity; pt on transfer to [facility] - notified CM. KAROLINA PLEITEZ Rn-Physical Plant Employee - 10/07/20 11:01:00 HD#6; ELOS 3; MRR; BOOST 7 - GenEdema/Anasarca; received voice mail from [facility] - DON requesting additional clinical information - faxed this am; awaiting return call to confirm precert has been initiated. KAROLINA PLEITEZ Rn-Physical Plant Employee - 10/07/20 07:45:25 Dr. Pemberton tells CM pt is ready to transition and is appropriate for precert to be initiated with short-term rehab; spoke with pt and she is in agreement to go to [facility]. Contacted [facility] and she will initiate the precert and confirm with Dr. Whittaker. KAROLINA PLEITEZ Rn-Physical Plant Employee - 10/06/20 13:57:22 HD#5; ELOS 3; MRR; BOOST 7 - Generalized Edema/Anasarca = 02/2L; Vancomycin/Midodrine; declined to stand w/therapy - will need rehab r/t ongoing weakness; discussion w/pt's family about need for rehab - possible long-term placement if unable to progress; [place] interested to discuss with [facility] [place] unable to meet pt's needs; continue to follow. KAROLINA PLEITEZ, Rn-Physical Plant Employee - 10/06/20 08:58:40 Received call from pt's daughter Leslie Og and she requested referrals be sent to [facility] in [place], [place] ([facility]) and [facility] in [place], [place] ([place]). KAROLINA PLEITEZ, Rn-Physical Plant Employee - 10/05/20 15:28:00 HD#4; ELOS 3; MRR; BOOST 7 - GenEdema/Hypernatremia/Anasarca - 02=2L; B/P 105/58; PO Vancomycin; Midodrine 10 mg TID; lytes to be replaced; Nephrology has signed off; pt MaxAx2 w/therapy; updates sent thru [facility] to [place] and left another message for f/u to confirm pt may return and anticipated turn around time for precert; DCP return for rehab; will likely require ambulance for transport; pt on transfer out of [facility]. KAROLINA PLEITEZ Rn-Physical Plant Employee - 10/05/20 13:37:58 HD#4; ELOS 3; MRR; BOOST 7 - GenEdema/Hypernatremia/Anasarca - 02=2L; B/P 105/58; PO Vancomycin; Midodrine 10 mg TID; lytes to be replaced; Nephrology has signed off; pt MaxAx2 w/therapy; updates sent thru [facility] to [place] and left another message for f/u to [...] referrals sent thru [facility] to [facility]. KAROLINA PLEITEZ Rn-Physical Plant Employee - 10/05/20 13:54:46 HD#1; ELOS 3; MRR; BOOST 7 - GenEdema/Hypernatremia/Anasarca - improving - 02=2L; Levo gtt; Midodrine; IV Bumex; Nephrology - 24 hr urine to eval for nephrotic syndrome; +CDiff; Rocephin/Doxy/Vanc; ltd work w/therapy - refusing OOB and knee/hip AROM; pt needs to be encouraged; DCP rehab - left message for [place] [phone] to confirm receipt of referral; pt will need precert. KAROLINA PLEITEZ, Rn-Physical Plant Employee - 10/02/20 12:06:37 HD#1; ELOS 3; MRR; BOOST 7 - Transfer from [facility] for Generalized Edema; Nephrology consult; PC=830; RA; Doxycycline/Rocephin; met w/pt's adult children Leslie Og and Kishore Bosch ([phone]) who states DCP will be return to [place] for ongoing rehab; explained pt will require a precert; updates clinicals sent to [place] and voicemail left for intake [phone]; [phone]. KAROLINA PLEITEZ Rn-Physical Plant Employee - 10/01/20 14:32:34 BHARGAVI MEYER, SUSANA-Physical Plant Employee - 10/12/2020 16:21 EDT documented in this encounter Plan of Treatment Not on file documented as of this encounter Visit Diagnoses Not on filedocumented in this encounter
--- OUTSIDE RECORDS SUMMARY | 2025-01-06 10:09 | XMS_ITS | Encounter Summary ---
Author Organization [email or web address] ([place], [place], [place], [place]) Address [address] [place] [address] Care Team Providers Care Senior Analyst Market Intelligence Name Role Phone Unavailable Primary Care Provider Unavailabl e Encounter Details Date Type Department Care Team (Late st Contact Info) Description 10/13/2020 Transcribed Document [facility] [place] [address] [place] [address] ProviderRadha MD [address], [place] [address] Social History Tobacco Use Types Packs/Day Years [...]
--- OUTSIDE RECORDS SUMMARY | 2025-01-06 10:09 | XMS_ITS | Encounter Summary ---
Author Organization [employer] ([place], [place], [place], [place]) Address [address] [place] [address] Care Team Providers Care Gas Operations Superintendent Name Role Phone Unavailable Primary Care Provider Unavailabl e Encounter Details Date Type Department Care Team (Late st Contact Info) Description 10/12/2020 Transcribed Document [facility] [place] [address] [place] [address] ProviderRadha MD [address] [place] [address] Social History Tobacco Use Types [...] On: 10/12/2020 16:20 EDT by BHARGAVI MEYER, RN-Manager Database Administration Final Discharge Planning Discharge Arrangements : Patient Post-Acute Information Patient Name: LUH GLASS Gender: Female : 62 Age: 59 Years No Post-Acute Placement(s) Listed No Post-Acute Service(s) Listed No Curaspan Referral(s) Listed Patient Offered Choice/Affiliations Explained : Yes Important Medicare Message Reviewed With : Patient Transportation Needs : Ambulance Discharge Transportation Arrangement Cmt : 10/13@1100 BHARGAVI MEYER, RN-Manager Database Administration - 10/12/2020 16:20 EDT documented in this encounter Plan of Treatment Not on file documented as of this encounter Visit Diagnoses Not on filedocumented in this encounter
--- OUTSIDE RECORDS SUMMARY | 2025-01-06 10:09 | XMS_ITS | Encounter Summary ---
Author Organization [employer] ([place], [place], [place], [place]) Address [address] [place] [address] Care Team Providers Care Grain Loader Name Role Phone Unavailable Primary Care Provider Unavailabl e Encounter Details Date Type Department Care Team (Late st Contact Info) Description 09/29/2020 Transcribed Document [facility] [place] Family Medicine [address] [place] [address] ProviderRadha MD [address], [place] [address] Social History Tobacco Use Types Packs/Day Years [...] gross fluid overload was transferred to [facility] from [facility] with hyponatremia. The patient story is that on 07/25, she weighed 230 pounds, with a history of having some mild lower extremity edema. She reports she gained approximately 100 pounds of water weight in 3 days on 07/28. She was hospitalized at [facility], was intermittently hypotensive and having lower extremity weakness. She improved and was [facility], where for the past 2 weeks she [...] care. BMI: 63.4 SARS-CoV-2 screening PCR: neg [facility] 09/29 Diet: regular, fluid restriction DVT ppx: heparin 5000 q8 Code: full Medications, labs, imaging, and available medical records reviewed. Discussed w/ RN Dictated using [employer] Speech Recognition software - unidentified arch cushion press operator errors may be present. Jade Curiel DO [facility] [phone] Orders: acetaminophen, 650 mg, Oral, Tab, Q4H, [...] EDT cefTRIAXone, 1 Gram, IV Piggyback, Inj, B22LEfh, infuse over 30 Minute(s), Routine, Start 09/30/20 [...] = 1 Cap, Oral, Daily Potassium Chloride (Czu-Teeb-Roa 10) 10 mEq oral tablet, extended release Allergies No active allergies Social History quit smoking 5 years ago no alcohol currently lives [place] Family History Dad and cousin from [place] Lab Results Test Name Test Result Date/Time [...] # 0.41 x10(3)/uL (Low) 09/29/2020 23:04 EDT Cole % 3.0 % 09/29/2020 23:04 EDT Cole # 0.34 K/uL 09/29/2020 23:04 EDT Eos [...] Full Code, Continuous Order Electronically signed by [facility], [facility] Conversion Academic Advisor Cerner at 08/02/2022 6:10 PM CDT documented in this encounter Plan of Treatment Not on file documented as of this encounter Visit Diagnoses Not on filedocumented in this encounter
--- OUTSIDE RECORDS SUMMARY | 2025-01-06 10:09 | XMS_ITS | Encounter Summary ---
Author Organization [employer] ([place], [place], [place], [place]) Address [address] [place] [address] Care Team Providers Care Network Operations Lead Name Role Phone Unavailable Primary Care Provider Unavailabl e Encounter Details Date Type Department Care Team (Late st Contact Info) Description 10/07/2020 Transcribed Document [facility] [place] [address] [place] [address] ProviderRadha MD [address] [place] [address] Social History Tobacco Use Types [...] On: 10/07/2020 10:58 EDT by KAROLINA PLEITEZ Rn-Textile Machine OperatorUniversity Teacher Progress Note Discharge Arrangements : Patient Post-Acute Information Patient Name: LUH BOSCH Gender: Female : 62 Age: 59 Years Ruth Referral(s): Service: Organization: Business Address: Phone Number: [facility] [address] [place], [address] Discharge Options Discussed with Patient : Acute rehabilitation, Discharge transportation, DME, Home Health, Short term rehabilitation Barriers to Discharge Identified : Clinical Condition of Patient, Follow-Up appointments needed Barriers to Discharge Unresolved : Clinical Condition of Patient KAROLINA PLEITEZ Rn-Textile Machine Operator - 10/07/2020 10:58 EDT Narrative Progress Note Narrative Progress Note : Received call from [facility] [phone] advising CM their facility is unable to meet pt's needs - r/t C-Diff; weight - non-ambulatory w/ bed activity; pt on transfer to [facility] - notified CM. Historical Progress Note : HD#6; ELOS 3; MRR; BOOST 7 - GenEdema/Anasarca; received voice mail from [facility] - DON requesting additional clinical information - faxed this am; awaiting return call to confirm precert has been initiated. KAROLINA PLEITEZ, Rn-Textile Machine Operator - 10/07/20 07:45:25 Dr. Pemberton tells CM pt is ready to transition and is appropriate for precert to be initiated with short-term rehab; spoke with pt and she is in agreement to go to [facility]. Contacted [facility] and she will initiate the precert and confirm with Dr. Whittaker. KAROLINA PLEITEZ Rn-Textile Machine Operator - 10/06/20 13:57:22 HD#5; ELOS 3; MRR; BOOST 7 - Generalized Edema/Anasarca = 02/2L; Vancomycin/Midodrine; declined to stand w/therapy - will need rehab r/t ongoing weakness; discussion w/pt's family about need for rehab - possible long-term placement if unable to progress; [facility] interested to discuss with MD; [facility] unable to meet pt's needs; continue to follow. KAROLINA PLEITEZ Rn-Textile Machine Operator - 10/06/20 08:58:40 Received call from pt's daughter Leslie Og and she requested referrals be sent to [facility] in [place], [place] ([employer]) and [facility] in [place], [place] ([employer]). KAROLINA PLEITEZ Rn-Textile Machine Operator - 10/05/20 15:28:00 HD#4; ELOS 3; MRR; BOOST 7 - GenEdema/Hypernatremia/Anasarca - 02=2L; B/P 105/58; PO Vancomycin; Midodrine 10 mg TID; lytes to be replaced; Nephrology has signed off; pt MaxAx2 w/therapy; [facility] and left another message for f/u to confirm pt may return and anticipated turn around time for precert; DCP return for rehab; will likely require ambulance for transport; pt on transfer out of [facility]. KAROLINA PLEITEZ Rn-Textile Machine Operator - 10/05/20 13:37:58 HD#4; ELOS 3; MRR; BOOST 7 - GenEdema/Hypernatremia/Anasarca - 02=2L; B/P 105/58; PO Vancomycin; Midodrine 10 mg TID; lytes to be replaced; Nephrology has signed off; pt MaxAx2 w/therapy; updates sent thru [facility] to [facility] and left another message for f/u to confirm pt may return and anticipated turn around time for precert; DCP return for rehab; will likely require ambulance for transport; pt on transfer out of [facility]. Spoke with [facility] and advised they will be unable to meet patient's needs; referral cancelled. sophia Spoke with pt's son Kishore and advised pt may require long-term care placement; he will discuss options with his sister and advise ; initial referrals sent thru [facility] to [facility]. KAROLINA PLEITEZ, Rn-Textile Machine Operator - 10/05/20 13:54:46 HD#1; ELOS 3; MRR; BOOST 7 - GenEdema/Hypernatremia/Anasarca - improving - 02=2L; Levo gtt; Midodrine; IV Bumex; Nephrology - 24 hr urine to eval for nephrotic syndrome; +CDiff; Rocephin/Doxy/Vanc; ltd work w/therapy - refusing OOB and knee/hip AROM; pt needs to be encouraged; DCP rehab - left message for [facility] [phone] to confirm receipt of referral; pt will need precert. KAROLINA PLEITEZ, Rn-Textile Machine Operator - 10/02/20 12:06:37 HD#1; ELOS 3; MRR; BOOST 7 - Transfer from [facility] for Generalized Edema; Nephrology consult; TM=977; RA; Doxycycline/Rocephin; met w/pt's adult children Leslie Ashbytyler and Kishore Bosch ([phone]) who states DCP will be return to [facility] for ongoing rehab; explained pt will require a precert; updates clinicals sent to [facility] and [facility] left for intake [phone]; [phone]. KAROLINA PLEITEZ Rn-Textile Machine Operator - 10/01/20 14:32:34 KAROLINA PLEITEZ Rn-Textile Machine Operator - 10/07/2020 10:58 EDT documented in this encounter Plan of Treatment Not on file documented as of this encounter Visit Diagnoses Not on filedocumented in this encounter
--- OUTSIDE RECORDS SUMMARY | 2025-01-06 10:09 | XMS_ITS | Encounter Summary ---
Author Organization [employer] ([place], [place], [place], [place]) Address [address] [place] [address] Care Team Providers Care Molder Hand Name Role Phone Unavailable Primary Care Provider Unavailabl e Encounter Details Date Type Department Care Team (Late st Contact Info) Description 10/11/2020 Transcribed Document [facility] [place] Family Medicine [address] [place] [address] ProviderRadha MD [address] [place] [address] Social History Tobacco Use Types [...] (CLAUDIA 19) Plt 298 (CLAUDIA 27) 300 (CLAUDIA 21) 315 (CLAUDIA 20) H [...] discharge disposition: snf [facility] Hospitalist pager- [phone] documented in this encounter Plan of Treatment Not on file documented as of this encounter Visit Diagnoses Not on filedocumented in this encounter
--- OUTSIDE RECORDS SUMMARY | 2025-01-06 10:09 | XMS_ITS | Encounter Summary ---
Author Organization [employer] ([place], [place], [place], [place]) Address [address] [place] [address] Care Team Providers Care Materials Buyer Name Role Phone Unavailable Primary Care Provider Unavailabl e Encounter Details Date Type Department Care Team (Late st Contact Info) Description 10/06/2020 Transcribed Document [facility] [place] [facility] [place] [address] [place] [address] ProviderRadha MD [address] [place] [address] Social History Tobacco Use Types [...] On: 10/06/2020 13:55 EDT by KAROLINA PLEITEZ Rn-Pbx SupervisorBand Saw Filer Progress Note Discharge Arrangements : Patient Post-Acute Information Patient Name: LUH GLASS Gender: Female : 62 Age: 59 Years Ruth Referral(s): Service: Organization: Business Address: Phone Number: [facility] [address] [place], [address] Discharge Options Discussed with Patient : Acute rehabilitation, Discharge transportation, DME, Home Health, Short term rehabilitation Barriers to Discharge Identified : Clinical Condition of Patient, Follow-Up appointments needed Barriers to Discharge Unresolved : Clinical Condition of Patient KAROLINA PLEITEZ Rn-Pbx Supervisor - 10/06/2020 13:55 EDT Narrative Progress Note Narrative Progress Note : Dr. Nilay tells CM pt is ready to transition and is appropriate for precert to be initiated with short-term rehab; spoke with pt and she is in agreement to go to [facility]. Contacted [facility] and she will initiate the precert and confirm with Dr. Whittaker. Historical Progress Note : HD#5; ELOS 3; MRR; BOOST 7 - Generalized Edema/Anasarca = 02/2L; Vancomycin/Midodrine; declined to stand w/therapy - will need rehab r/t ongoing weakness; discussion w/pt's family about need for rehab - possible long-term placement if unable to progress; [facility] interested to discuss with MD; [facility] unable to meet pt's needs; continue to follow. KAROLINA PLEITEZ Rn-Pbx Supervisor - 10/06/20 08:58:40 Received call from pt's daughter Leslie Og and she requested referrals be sent to [facility] in [place], [place] ([facility]) and Count Includes [facility] in [place], [place] ([facility]). KAROLINA PLEITEZ Rn-Pbx Supervisor - 10/05/20 15:28:00 HD#4; ELOS 3; MRR; BOOST 7 - GenEdema/Hypernatremia/Anasarca - 02=2L; B/P 105/58; PO Vancomycin; Midodrine 10 mg TID; lytes to be replaced; Nephrology has signed off; pt MaxAx2 w/therapy; updates sent thru [employer] to [facility] and left another message for f/u to confirm pt may return and anticipated turn around time for precert; DCP return for rehab; will likely require ambulance for transport; pt on transfer out of [facility]. KAROLINA PLEITEZ Rn-Pbx Supervisor - 10/05/20 13:37:58 HD#4; ELOS 3; MRR; BOOST 7 - GenEdema/Hypernatremia/Anasarca - 02=2L; B/P 105/58; PO Vancomycin; Midodrine 10 mg TID; lytes to be replaced; Nephrology has signed off; pt MaxAx2 w/therapy; updates sent thru [employer] to [facility] and left another message for f/u to confirm pt may return and anticipated turn around time for precert; DCP return for rehab; will likely require ambulance for transport; pt on [facility]. [facility] and advised they will be unable to meet patient's needs; referral cancelled. sophia Spoke with pt's son Kishore and advised pt may require long-term care placement; he will discuss options with his sister and advise CM; initial referrals sent thru [facility] to [facility]; [facility]. KAROLINA PLEITEZ, Rn-Pbx Supervisor - 10/05/20 13:54:46 HD#1; ELOS 3; MRR; BOOST 7 - GenEdema/Hypernatremia/Anasarca - improving - 02=2L; Levo gtt; Midodrine; IV Bumex; Nephrology - 24 hr urine to eval for nephrotic syndrome; +CDiff; Rocephin/Doxy/Vanc; ltd work w/therapy - refusing OOB and knee/hip AROM; pt needs to be encouraged; DCP rehab - left message for [facility] [phone] to confirm receipt of referral; pt will need precert. KAROLINA PLEITEZ Rn-Pbx Supervisor - 10/02/20 12:06:37 HD#1; ELOS 3; MRR; BOOST 7 - Transfer from [facility] for [facility]ized [facility]; Nephrology consult; MB=589; RA; Doxycycline/Rocephin; met w/pt's adult children Leslie Og and Kishore Glass ([phone]) who states DCP will be return to [facility] for ongoing rehab; explained pt will require a precert; updates [facility] [phone]; [phone]. KAROLINA PLEITEZ Rn-Pbx Supervisor - 10/01/20 14:32:34 KAROLINA PLEITEZ Rn-Pbx Supervisor - 10/06/2020 13:55 EDT documented in this encounter Plan of Treatment Not on file documented as of this encounter Visit Diagnoses Not on filedocumented in this encounter
--- OUTSIDE RECORDS SUMMARY | 2025-01-06 10:09 | XMS_ITS | Encounter Summary ---
Author Organization [employer] ([place], [place], [place], [place]) Address [address] [place] [address] Care Team Providers Care Electronics Technician Apprentice Name Role Phone Unavailable Primary Care Provider Unavailabl e Encounter Details Date Type Department Care Team (Late st Contact Info) Description 09/30/2020 Transcribed Document [facility] [place] [address] [place] [address] ProviderRadha MD [address] [place] [address] Social History Tobacco Use Types [...] much for the consult. WIll follow along. [id number] Electronically signed by Angela [facility] Conversion Histotechnician Sandra at 08/02/2022 6:21 PM CDT documented in this encounter Plan of Treatment Not on file documented as of this encounter Visit Diagnoses Not on filedocumented in this encounter
--- OUTSIDE RECORDS SUMMARY | 2025-01-06 10:09 | XMS_ITS | Encounter Summary ---
Author Organization [employer] ([place], [place], [place], [place]) Address [address] [place] [address] Care Team Providers Care Project Product Manager Name Role Phone Unavailable Primary Care Provider Unavailabl e Encounter Details Date Type Department Care Team (Late st Contact Info) Description 10/12/2020 Transcribed Document [facility] [place] [address] [place] [address] ProviderRadha MD [address] [place] [address] Social History Tobacco Use Types [...] 6.6 (OCT 11) 7.7 (OCT 05) 8.8 (CLAUDIA 20) 9.4 (CLAUDIA 19) HB L 9.5 [...] patient stable for discharge anticipated discharge disposition: [facility] Samantha Melendez Hospitalist pager- [phone] Electronically signed by Angela [facility] Conversion Embedded Software Design Engineer Cerner at 08/02/2022 6:02 PM CDT documented in this encounter Plan of Treatment Not on file documented as of this encounter Visit Diagnoses Not on filedocumented in this encounter
--- OUTSIDE RECORDS SUMMARY | 2025-01-06 10:10 | XMS_ITS | Encounter Summary ---
Author Organization [employer] ([place], [place], [place], [place]) Address [address] [place] [address] Care Team Providers Care Healthcare Risk Control Consultant Name Role Phone Unavailable Primary Care Provider Unavailabl e Encounter Details Date Type Department Care Team (Late st Contact Info) Description 10/02/2020 Transcribed Document [facility] [place] [address] [place] [address] ProviderRadha MD [address] [place] [address] Social History Tobacco Use Types [...] On: 10/02/2020 7:47 EDT by Verena Kimble, Cardiac Rn Primary Insurance Authorization Authorization and Policy Numbers : Insurance 1 Health Plan: [employer] P[employer] Policy Number: [id number] Authorization Number: Insurance 2 Health Plan: [place] Policy Number: [id number] Authorization Number: Insurance Primary Name : [employer] PPO Policy Number: [id number] Authorization Status-Primary : Notification only Reference Number-Primary : [id number] Authorization Number-Primary : [id number] Authorized Service Begin Date-Primary : 09/29/2020 EDT Authorization Comments-Primary : Authorized per email from Angel Poon RN. Historical Authorization Comments-Primary : Comment 1: SUBMITTED ON [employer]. PAYOR HAS ACCESS TO EMR (Daisy Davison Rn-Utilization Review 09/30/2020 13:24) Verena Kimble, Cardiac Rn - 10/02/2020 7:47 EDT Electronically signed by [facility] Conversion Cpr Instructor Cerner at 08/02/2022 6:09 PM CDT documented in this encounter Plan of Treatment Not on file documented as of this encounter Visit Diagnoses Not on filedocumented in this encounter
--- OUTSIDE RECORDS SUMMARY | 2025-01-06 10:10 | XMS_ITS | Encounter Summary ---
Author Organization [employer] ([place], [place], [place], [place]) Address [address] [place] [address] Care Team Providers Care Liaison Planner Name Role Phone Unavailable Primary Care Provider Unavailabl e Encounter Details Date Type Department Care Team (Late st Contact Info) Description 10/02/2020 Transcribed Document [facility] [place] [address] [place] [address] ProviderRadha MD [address] [place] [address] Social History Tobacco Use Types [...] On: 10/02/2020 12:02 EDT by KAROLINA PLEITEZ Rn-Railroad Brake OperatorOrthopedic Shoe Maker Progress Note Discharge Arrangements : Patient Post-Acute [...] : Clinical Condition of Patient KAROLINA PLEITEZ Rn-Railroad Brake Operator - 10/02/2020 12:02 EDT Narrative Progress Note Narrative Progress Note : HD#1; ELOS 3; MRR; BOOST 7 - GenEdema/Hypernatremia/Anasarca - improving - 02=2L; Levo gtt; Midodrine; IV Bumex; Nephrology - 24 hr urine to eval for nephrotic syndrome; +CDiff; Rocephin/Doxy/Vanc; ltd work w/therapy - refusing OOB and knee/hip AROM; pt needs to be encouraged; DCP rehab - left message for [facility] [phone] to confirm receipt of referral; pt will need precert. Historical Progress Note : HD#1; ELOS 3; MRR; BOOST 7 - Transfer from [facility] for [facility]; Nephrology consult; VP=577; RA; Doxycycline/Rocephin; met w/pt's adult children Leslie Ashbytyler and Kishore Bosch ([phone]) who states DCP will be return to [facility] for ongoing rehab; explained pt will require a precert; updates clinicals sent to [facility] and [facility] for intake [phone]; [phone]. KAROLINA PLEITEZ, Rn-Railroad Brake Operator - 10/01/20 14:32:34 KAROLINA PLEITEZ Rn-Railroad Brake Operator - 10/02/2020 12:02 EDT Electronically signed by Galen Miller Conversion System Configuration Specialist Sandra at 08/02/2022 6:07 PM CDT documented in this encounter Plan of Treatment Not on file documented as of this encounter Visit Diagnoses Not on filedocumented in this encounter
--- OUTSIDE RECORDS SUMMARY | 2025-01-06 10:10 | XMS_ITS | Encounter Summary ---
Author Organization [employer] ([place], [place], [place], [place]) Address [address] [place] [address] Care Team Providers Care Installment Agent Name Role Phone Unavailable Primary Care Provider Unavailabl e Encounter Details Date Type Department Care Team (Late st Contact Info) Description 10/03/2020 Transcribed Document [facility] [place] [address] [place] [address] ProviderRadha MD [address] [place] [address] Social History Tobacco Use Types [...]
--- OUTSIDE RECORDS SUMMARY | 2025-01-06 10:10 | XMS_ITS | Clinical Summary ---
Author Organization [employer] ([place], [place], [place]) Address [address] [place] [address] Care Team Providers Care Dynamo Repairer Name Role Phone Unavailable Primary Care [...]
--- OUTSIDE RECORDS SUMMARY | 2025-01-06 10:10 | XMS_ITS | Encounter Summary ---
Author Organization [employer] ([place], [place], [place], [place]) Address [address] [place] [address] Care Team Providers Care School Bus Driver/Custodian Name Role Phone Unavailable Primary Care Provider Unavailabl e Encounter Details Date Type Department Care Team (Late st Contact Info) Description 10/02/2020 Transcribed Document [facility] [place] [address] [place] [address] ProviderRadha MD [address] [place] [address] Social History Tobacco Use Types [...] 10/02/2020 18:13 EDT Electronically signed by Angela [facility] Conversion Hyperbaric Nurse Cerner at 08/02/2022 6:24 PM CDT documented in this encounter Plan of Treatment Not on file documented as of this encounter Visit Diagnoses Not on filedocumented in this encounter
--- OUTSIDE RECORDS SUMMARY | 2025-01-06 10:10 | XMS_ITS | Encounter Summary ---
Author Organization [employer] ([place], [place], [place], [place]) Address [address] [place] [address] Care Team Providers Care Ad Writer Name Role Phone Unavailable Primary Care Provider Unavailabl e Encounter Details Date Type Department Care Team (Late st Contact Info) Description 10/03/2020 Transcribed Document [facility] [place] [address] [place] [address] ProviderRadha MD [address] [place] [address] Social History Tobacco Use Types [...] pedal edema. No cyanosis. Peripheral pulses palpable. CUSTOM VAN CONVERTER: No focal deficit noted grossly. Cranial nerves [...] - Medical Enoxaparin 40 mg, SubCutaneous, Inj, [id number], Routine, Start 09/30/20 12:00:00 EDT, 09/30/20 11:44:00 [...] Daily Lovenox, 40 mg= 0.4 mL, SubCutaneous, [id number] magnesium sulfate, 2 Gram= 50 mL, IV [...] 04:01 EDT Electronically signed by Angela, [facility] Conversion Community Manager Cerner at 08/02/2022 6:26 PM CDT documented in this encounter Plan of Treatment Not on file documented as of this encounter Visit Diagnoses Not on filedocumented in this encounter
--- OUTSIDE RECORDS SUMMARY | 2025-01-06 10:10 | XMS_ITS | Encounter Summary ---
Author Organization [employer] ([place], [place], [place], [place]) Address [address] [place] [address] Care Team Providers Care Aboriginal Education Teacher Name Role Phone Unavailable Primary Care Provider Unavailabl e Encounter Details Date Type Department Care Team (Late st Contact Info) Description 10/04/2020 Transcribed Document [facility] Radiology [address] [place] [address] Malu Pemberton MD [address] [place], [place] [id number] Social History Tobacco Use Types Packs/Day Years [...]
--- OUTSIDE RECORDS SUMMARY | 2025-01-06 10:10 | XMS_ITS | Encounter Summary ---
Author Organization [employer] ([place], [place], [place], [place]) Address [address] [place] [address] Care Team Providers Care Gas Turbine Powerplant Mechanic Helper Name Role Phone Unavailable Primary Care Provider Unavailabl e Encounter Details Date Type Department Care Team (Late st Contact Info) Description 10/02/2020 Transcribed Document [facility] [place] Family Medicine [address] [place] [address] ProviderRadha MD [address] [place] [address] Social History Tobacco Use Types [...] 10/02/2020 4:28 EDT Electronically signed by Angela [facility] Conversion Cracker Sprayer Cerner at 08/02/2022 6:27 PM CDT documented in this encounter Plan of Treatment Not on file documented as of this encounter Visit Diagnoses Not on filedocumented in this encounter
--- OUTSIDE RECORDS SUMMARY | 2025-01-06 10:10 | XMS_ITS | Encounter Summary ---
Author Organization [employer] ([place], [place], [place], [place]) Address [address] [place] [address] Care Team Providers Care Brand Marketing Manager Name Role Phone Unavailable Primary Care Provider Unavailabl e Encounter Details Date Type Department Care Team (Late st Contact Info) Description 10/03/2020 Transcribed Document [facility] [place] [address] [place] [address] ProviderRadha MD [address] [place] [address] Social History Tobacco Use Types [...] 10/03/2020 5:34 EDT Electronically signed by Angela [facility] Conversion Fire Management Technician Cerner at 08/02/2022 6:08 PM CDT documented in this encounter Plan of Treatment Not on file documented as of this encounter Visit Diagnoses Not on filedocumented in this encounter
--- OUTSIDE RECORDS SUMMARY | 2025-01-06 10:10 | XMS_ITS | Encounter Summary ---
Author Organization [employer] ([place], [place], [place], [place]) Address [address] [place] [address] Care Team Providers Care Supervisor Felting Name Role Phone Unavailable Primary Care Provider Unavailabl e Encounter Details Date Type Department Care Team (Late st Contact Info) Description 10/02/2020 Transcribed Document [facility] [place] [address] [place] [address] ProviderRadha MD [address] [place] [address] Social History Tobacco Use Types [...]
--- OUTSIDE RECORDS SUMMARY | 2025-01-06 10:10 | XMS_ITS | Encounter Summary ---
Author Organization [employer] ([place], [place], [place], [place]) Address [address] [place] [address] Care Team Providers Care Transformer Mechanic Name Role Phone Unavailable Primary Care Provider Unavailabl e Encounter Details Date Type Department Care Team (Late st Contact Info) Description 10/02/2020 Transcribed Document [facility] [place] [address] [place] [address] ProviderRadha MD [address] [place] [address] Social History Tobacco Use Types [...] Historical ProviderMD - 10/02/2020 2:00 AM CDT Fundraising Coordinator Details Entered On: 10/02/2020 0:09 EDT Performed [...] Patient Needs Meds Crushed/Liquid : No Natasha Sweeney, SUSANA - 10/02/2020 0:08 EDT documented in this encounter Plan of Treatment Not on file documented as of this encounter Visit Diagnoses Not on filedocumented in this encounter
--- OUTSIDE RECORDS SUMMARY | 2025-01-06 10:10 | XMS_ITS | Referral Summary ---
Author Organization [employer] ([place], [place], [place], [place]) Address [address] [place] [address] Care Team Providers Care Hearing Aid Repairer Name Role Phone Unavailable Primary Care [...]
--- OUTSIDE RECORDS SUMMARY | 2025-01-06 10:10 | XMS_ITS | Encounter Summary ---
Author Organization [employer] ([place], [place], [place], [place]) Address [address] [place] [address] Care Team Providers Care Flower Buncher Or Picker Name Role Phone Unavailable Primary Care Provider Unavailabl e Encounter Details Date Type Department Care Team (Late st Contact Info) Description 10/04/2020 Transcribed Document [facility] [place] [address] [place] [address] ProviderRadha MD [address] [place] [address] Social History Tobacco Use Types [...]
--- OUTSIDE RECORDS SUMMARY | 2025-01-06 10:10 | XMS_ITS | Encounter Summary ---
Author Organization [employer] ([place], [place], [place], [place]) Address [address] [place] [address] Care Team Providers Care Manager Assembly Name Role Phone Unavailable Primary Care Provider Unavailabl e Encounter Details Date Type Department Care Team (Late st Contact Info) Description 10/13/2020 Transcribed Document [facility] [place] Family [place] [address] [place] [address] ProviderRadha MD [address] [place] [address] Social History Tobacco Use Types [...] from hospital Discharged to, Therapy : Unit, snf Discharge Summary Comment, PT : last seen [...] DONNY HALE, PT - 10/13/2020 13:15 EDT Correction Goals Mobility/Bed Mobility LTG PT Grid Goal [...]
--- OUTSIDE RECORDS SUMMARY | 2025-01-06 10:10 | XMS_ITS | Encounter Summary ---
Author Organization [employer] ([place], [place], [place], [place]) Address [address] [place] [address] Care Team Providers Care Distance Learning Technician Name Role Phone Unavailable Primary Care Provider Unavailabl e Encounter Details Date Type Department Care Team (Late st Contact Info) Description 10/13/2020 Transcribed Document [facility] [place] [address] [place] [address] ProviderRadha MD [address], [place] [address] Social History Tobacco Use Types Packs/Day Years [...]
--- OUTSIDE RECORDS SUMMARY | 2025-01-06 10:10 | XMS_ITS | Encounter Summary ---
Author Organization [employer] ([place], [place], [place], [place]) Address [address] [place] [address] Care Team Providers Care Jet Dyeing Machine Operator Name Role Phone Unavailable Primary Care Provider Unavailabl e Encounter Details Date Type Department Care Team (Late st Contact Info) Description 10/04/2020 Transcribed Document [facility] [place] [address] [place] [address] ProviderRadha MD [address] [place] [address] Social History Tobacco Use Types [...]
--- OUTSIDE RECORDS SUMMARY | 2025-01-06 10:10 | XMS_ITS | Encounter Summary ---
Author Organization [employer] ([place], [place], [place], [place]) Address [address] [place] [address] Care Team Providers Care Wafer Fabrication Technician Name Role Phone Unavailable Primary Care Provider Unavailabl e Encounter Details Date Type Department Care Team (Late st Contact Info) Description 10/04/2020 Transcribed Document [facility] [place] [address] [place] [address] ProviderRadha MD [address] [place] [address] Social History Tobacco Use Types [...] 10/04/2020 5:06 EDT Electronically signed by Angela [facility] [place] Conversion Vehicle Sales Professional Cerner at 08/02/2022 6:29 PM CDT documented in this encounter Plan of Treatment Not on file documented as of this encounter Visit Diagnoses Not on filedocumented in this encounter
--- OUTSIDE RECORDS SUMMARY | 2025-01-06 10:10 | XMS_ITS | Patient Health Record ---
Author Organization formerly [facility] Address [address] [place] [address] Care Team Providers Care Milk Vendor Name Role Phone YoClarence Primary Care Provider Wendy Payne Unavailable [phone] Wendy Cortez Unavailable [phone] Migration, Provider Unavailable Unavailable Allergies Allergen (clinical drug ingredient) Drug/Non Drug Allergy documented on EMR Reaction Allergy Type Onset Date Status Fish FISH (uncoded) Unknown Allergy Activ e hydromorphone Dilaudid Unknown Drug Allergy Act caro morphine Morphine Unknown Drug Allergy Active Penicillin Unknown Drug Allergy Active Results Component Value Reference Range Notes HEMOGLOBIN A1c (496) Reviewed date:07/16/2024 10:06:22 AM Interpretation: Performing Lab:[facility], [facility] Stsa[address] [facility] [place] BjygNX[address] Ajay Culver Notes/Report: NON-FASTING; NON-FASTING; NON-FASTING; NON-FASTING; [...] A1c for diagnosis of diabetes for children. TSH W/REFLEX TO FT4 (78913) Reviewed date:07/16/2024 10:06:22 AM Interpretation: Performing Lab:[facility] [address], [place] VehuZP[address] Ajay Culver Notes/Report: NON-FASTING; NON-FASTING; NON-FASTING; NON-FASTING; NON-FAST TSH W/REFLEX TO FT4 0.86 0.40-4.50 mIU/L Urinalysis Reviewed date:10/09/2024 12:36:57 PM Interpretation: Performing Lab: Notes/Report: Color/Clarity yellow Leuk neg Nitrite neg Urobili 0.2 Protein 100 pH 5.5 Blood trace Sp. Gr. 1.025 Ketone neg Bili neg Glucose neg CULTURE, URINE, ROUTINE (395 ) Reviewed date:10/14/2024 02:50:35 PM Interpretation: Performing Lab:Antonio QUINTANILLA [facility] [id number], [place] GuzmanBygtNK[address] Ajay Culver Notes/Report: CULTURE, URINE, ROUTINE SEE NOTE CULTURE, URINE, ROUTINE Micro Number: [id number] Test Status: Final Specimen Source: Urine Specimen Quality: Adequate Result: Non-uropathogenic Gram positive organism May represent colonizers from external and internal genitalia. No further testing (including susceptibility) will be performed. CAROTID DUPLEX Reviewed date:03/27/2024 09:41:19 AM Interpretation: Performing Lab: Notes/Report: ECHOCARDIOGRAM Reviewed date:03/30/2024 03:03:15 PM Interpretation: Performing Lab: Notes/Report: TSH W/REFLEX TO FT4 ([id number]) Reviewed date:08/30/2024 12:36:40 PM Interpretation: Performing Lab:Antonio QUINTANILLA [facility] [address], [place] JtqfFW[address] Ajay Culver Notes/Report: NON-FASTING; NON-FASTING; NON-FASTING; NON-FASTING; NON-FAST TSH W/REFLEX TO FT4 0.80 0.40-4.50 mIU/L VITAMIN B12 (927) Reviewed date:08/30/2024 12:36:40 PM Interpretation: Performing Lab:Antonio QUINTANILLA [facility] [address], [place]kaBhrxFG[address] Ajay Culver Notes/Report: NON-FASTING; NON-FASTING; NON-FASTING; NON-FASTING; NON-FAST VITAMIN B12 799 446-0112 pg/mL C-REACTIVE PROTEIN (4420) Reviewed date:08/30/2024 12:36:40 PM Interpretation: Performing Lab:[facility], [facility] [facility], [place] [facility] HospitalHvtfRB[address] Ajay Culver Notes/Report: NON-FASTING; NON-FASTING; NON-FASTING; NON-FASTING; NON-FAST C-REACTIVE PROTEIN <3.0 <8.0 mg/L CBC (INCLUDES DIFF/PLT) (639 9) Reviewed date:08/30/2024 12:36:40 PM Interpretation: Performing Lab:[facility] [facility], [place] [facility] HospitalDghjRD[address] Ajay Culver Notes/Report: NON-FASTING; NON-FASTING; NON-FASTING; NON-FASTING; [...] MPV 10.3 7.5-12.5 fL ABSOLUTE NEUTROPHILS [phone] cells/uL ABSOLUTE LYMPHOCYTES [phone] cells/uL ABSOLUTE MONOCYTES 483 200-950 cells/uL ABSOLUTE EOSINOPHILS 163 15-500 cells/uL ABSOLUTE BASOPHILS 68 0-200 cells/uL NEUTROPHILS 60.6 LYMPHOCYTES 28.9 MONOCYTES 7.1 EOSINOPHILS 2.4 BASOPHILS 1.0 CREATINE KINASE, TOTAL (374) Reviewed date:08/30/2024 12:36:40 PM Interpretation: Performing Lab:[facility], [facility] [address], [place] [facility] HospitalGkggCU[address] Ajay Culver Notes/Report: NON-FASTING; NON-FASTING; NON-FASTING; NON-FASTING; NON-FAST CREATINE KINASE, TOTAL 53 20-243 U/L MAGNESIUM (622) Reviewed date:08/30/2024 12:36:40 PM Interpretation: Performing Lab:[facility], [facility] [address] [facility], [place] [facility] HospitalYodvJW[address] Ajay Culver Notes/Report: NON-FASTING; NON-FASTING; NON-FASTING; NON-FASTING; NON-FAST MAGNESIUM 2.2 1.5-2.5 mg/dL COMPREHENSIVE METABOLIC PANE L (87464) Reviewed date:08/30/2024 12:36:40 PM Interpretation: Performing Lab:[facility], [facility] [address] [facility], [place] [facility] HospitalNlemCX[address] Ajay Culver Notes/Report: NON-FASTING; NON-FASTING; NON-FASTING; NON-FASTING; [...] 16 10-35 U/L ALT 17 6-29 U/L CBC (INCLUDES DIFF/PLT) (639 9) Reviewed date:07/16/2024 10:06:22 AM Interpretation: Performing Lab:[facility] [address], [place] [facility] HospitalOfdkEH[address] Ajay Culver Notes/Report: NON-FASTING; NON-FASTING; NON-FASTING; NON-FASTING; [...] MPV 10.2 7.5-12.5 fL ABSOLUTE NEUTROPHILS 5359 3484-1852 cells/uL ABSOLUTE LYMPHOCYTES 4397 049-1932 cells/uL ABSOLUTE MONOCYTES 491 200-950 cells/uL ABSOLUTE EOSINOPHILS 218 15-500 cells/uL ABSOLUTE BASOPHILS 62 0-200 cells/uL NEUTROPHILS 68.7 LYMPHOCYTES 21.4 MONOCYTES 6.3 EOSINOPHILS 2.8 BASOPHILS 0.8 MAGNESIUM (622) Reviewed date:07/16/2024 10:06:22 AM Interpretation: Performing Lab:[facility] [address], [place] [facility] HospitalFrxbRL[address] Ajay Culver Notes/Report: NON-FASTING; NON-FASTING; NON-FASTING; NON-FASTING; NON-FAST MAGNESIUM 2.2 1.5-2.5 mg/dL COMPREHENSIVE METABOLIC PANE L (14427) Reviewed date:07/16/2024 10:06:22 AM Interpretation: Performing Lab:[facility] [employer] [address], [place] [facility] HospitalZkcsZY[address] Ajay Culver Notes/Report: NON-FASTING; NON-FASTING; NON-FASTING; NON-FASTING; [...] (7600) Reviewed date:07/16/2024 10:06:22 AM Interpretation: Performing Lab:[place], [facility] [address], [facility] CenterRmfkRT[address] Ajay Culver Notes/Report: NON-FASTING; NON-FASTING; NON-FASTING; NON-FASTING; NON-FAST CHOLESTEROL, TOTAL 116 <200 mg/dL HDL CHOLESTEROL 44 > OR = 50 mg/dL TRIGLYCERIDES 124 <150 mg/dL LDL-CHOLESTEROL 51 Reference range: <100 Desirable range <100 mg/dL for primary prevention; <70 mg/dL for patients with CHD or diabetic patients with > or = 2 CHD risk factors. LDL-C is now calculated using the Floyd-Corbin calculation, which is a validated novel method providing better accuracy than the Friedewald equation in the estimation of LDL-C. Floyd SS et al. NURA. 2013;310(19): 5092-0861 (http://education.[employer].com/faq/TXP246) CHOL/HDLC RATIO 2.6 <5.0 (calc) NON HDL CHOLESTEROL 72 <130 mg/dL (calc) For patients with diabetes plus 1 major ASCVD risk factor, treating to a non-HDL-C goal of <100 mg/dL (LDL-C of <70 mg/dL) is considered a therapeutic option. M-Thyroid Stimulating Hormon e Reviewed date:04/11/2024 09:22:17 AM Interpretation: Performing Lab: Notes/Report: TSH 2.80 0.465-4.68 uIU/mL M-Free T4 (Free Thyroxine) Reviewed date:04/11/2024 09:22:17 AM Interpretation: Performing Lab: Notes/Report: T4F 1.37 0.78-2.19 ng/dl M-Basic Metabolic Panel Reviewed date:04/11/2024 09:22:17 AM Interpretation: Performing Lab: Notes/Report: NA 137 136-145 mmol/L K 4.6 3.5-5.1 mmoL/L CL 98 98-107 mmol/L CO2 31 22.0-30.0 mmol/L GAP 12.6 5-15 mEq/L BUN 34 7-17 mg/dl CREATT 1.10 0.52-1.04 mg/dl GFRAA 61 >60 ML/MIN EGFR 50 >60 ml/min GLU 107 74-100 mg/dl CA 9.8 8.4-10.2 mg/dl Mammogram: Screening Reviewed date:04/09/2024 08:32:39 AM Interpretation: Performing Lab: Notes/Report: Holter Monitor, 48 hour Reviewed date:03/27/2024 09:46:47 AM Interpretation: Performing Lab: Notes/Report: DEXA Hip and Spine - Screeni ng Reviewed date:03/27/2024 02:06:32 PM Interpretation: Performing Lab: Notes/Report: Microalbumin (In-House) Reviewed date:03/12/2024 01:34:14 PM Interpretation:Normal Performing Lab: Notes/Report: Normal ALB 30mg CRE 100mg/dL A:C <30mg/g Ultrasound : Soft Tissue, Ne ck Reviewed date:01/25/2024 01:50:01 PM Interpretation: Performing Lab: Notes/Report: FERRITIN (457) Reviewed date:01/19/2024 01:44:28 PM Interpretation: Performing Lab:CB, [facility] [address], [facility] CenterNdgoFA[address] Ajay Culver Notes/Report: NON-FASTING; NON-FASTING; NON-FASTING; NON-FASTING FERRITIN 219 16-288 ng/mL CBC (INCLUDES DIFF/PLT) (639 9) Reviewed date:01/19/2024 10:24:45 AM Interpretation: Performing Lab:[facility] [address], [place] [facility] HospitalCmteED[address] Ajay Culver Notes/Report: NON-FASTING; NON-FASTING; NON-FASTING; NON-FASTING [...] MPV 11.0 7.5-12.5 fL ABSOLUTE NEUTROPHILS 3906 7185-6073 cells/uL ABSOLUTE LYMPHOCYTES 2270 850-3900 cells/uL ABSOLUTE MONOCYTES 526 200-950 cells/uL ABSOLUTE EOSINOPHILS 526 15-500 cells/uL ABSOLUTE BASOPHILS 73 0-200 cells/uL NEUTROPHILS 53.5 LYMPHOCYTES 31.1 MONOCYTES 7.2 EOSINOPHILS 7.2 BASOPHILS 1.0 MAGNESIUM (622) Reviewed date:01/19/2024 10:24:45 AM Interpretation: Performing Lab:[facility] [address], [place] [facility] HospitalKeodXE[address] Ajay Culver Notes/Report: NON-FASTING; NON-FASTING; NON-FASTING; NON-FASTING MAGNESIUM 2.0 1.5-2.5 mg/dL COMPREHENSIVE METABOLIC PANE L (87522) Reviewed date:01/19/2024 10:24:45 AM Interpretation: Performing Lab:[facility] [address], [place] [facility] HospitalVdgrPV[address] Ajay Culver Notes/Report: NON-FASTING; NON-FASTING; NON-FASTING; NON-FASTING [...] 13 10-35 U/L ALT 13 6-29 U/L CULTURE, URINE, ROUTINE (395 ) Reviewed date:01/12/2024 10:50:55 AM Interpretation: Performing Lab:[facility], [facility]1355 [facility], [place] [facility] HospitalZqhjGC[address] Ajay Culver Notes/Report: NON-FASTING FASTING:UNKNOWN FASTING: UNKNOWN CULTURE, URINE, ROUTINE SEE NOTE CULTURE, URINE, ROUTINE Micro Number: [id number] Test Status: Final Specimen Source: Urine Specimen Quality: Adequate Result: Mixed genital guadalupe isolated. These superficial bacteria are not indicative of a urinary tract infection. No further organism identification is warranted on this specimen. If clinically indicated, recollect clean-catch, mid-stream urine and transfer immediately to Urine Culture Transport Tube. Urinalysis Reviewed date:01/10/2024 03:52:36 PM Interpretation: Performing Lab: Notes/Report: Color/Clarity yellow Leuk trace Nitrite neg Urobili 0.2 Protein neg pH 5.5 Blood neg Sp. Gr. 1.015 Ketone neg Bili neg Glucose 500 M-Complete Blood Count Auto Diff Reviewed date:11/04/2024 [...] Performing Lab: Notes/Report: LIP 210 23-300 U/L Medications Medication SIG (Take, Route, Frequency, Duration) Notes Start Date End Date Status HumaLOG KwikPen 100 UNIT/ML 4 units subcutaneously 3 times a day with meals 09/28/2023 Active Advair HFA 115 MCG-21 MCG 2 INH INHALED 2 TIMES A DAY *Please review and pick correct strength-formulat ion from Xactium options. If intended option is not shown, [...] review and pick correct strength-formulat ion from Xactium options. If intended option is not shown, discontinue and re-order from Quick Search* Active Promethazine HCl 12.5 MG 1 tablet as needed Orally every 8 hours; Duration: 5 days As needed nausea. 10/09/2024 Active Famotidine 20 MG 1 tab(s) orally once a day (at bedtime); Duration: 90 days Active BD Insulin Syringe Ultrafine 31G X 5/16 0.5 ML USEPRNDIRECTED DAILY WITH INSULIN Active Gabapentin 100 mg TAKE 2 CAPSULES [...] once a day; Duration: 90 days Active Potassium Chloride ER 10 mEq TAKE 2 CAPSULES BY MOUTH 2 TIMES A DAY; Duration: 30 Active Ozempic (2 MG/DOSE) 8 MG/3ML INJECT 2 MG SUBCUTANEOUSLY ONCE WEEKLY; Duration: 28 days Active Lantus 100 unit/mL INJECT 40 UNITS SUBCUTANEOUSLY ONCE A DAY; Duration: 25 Active Cetirizine HCl 10 MG 1 tab(s) [...] (Z68.33) Active confirmed Problem Information temporarily unavailable skilled nursing (current) use of insulin (Z79.4) Active confirmed Problem Information temporarily unavailable Other chronic pain (G89.29) Active confirmed Problem Information temporarily unavailable BMI 39.0-39.9,adult (Z68.39) Active confirmed Problem Information temporarily unavailable skilled nursing (current) use of insulin (Z79.4) Active confirmed [...] 11/11/2024 Encounters Encounter Location Date Provider Diagnosis [facility] [address] [place], [place] [address] 02/09/2024 Clarence Ram Breast cancer screen ing by mammogram Z12. [facility] [address] [facility] [address] [place] [address] 02/24/2024 Clarence Ram [facility] [address] [place] [address] 02/29/2024 Wendy Payne [facility] [address] [place] [address] 03/12/2024 Clarence Besson Syncope and collapse R55 [facility] [place] [address] [place] [address] 03/18/2024 Wendy Kerry [facility] [address] [place] [address] 03/27/2024 Wendy Kerry [facility] [address] [place] [address] 04/02/2024 Clarence Besson [facility] [address] [place] [address] 05/21/2024 Clarence Besson [facility] [address] [place] [address] 08/20/2024 Wendy Kerry [facility] [address] [place] [address] 09/16/2024 Clarence Ram Type 2 diabetes mellitus with other specified complication E11.69 [facility] [address] [place] [address] 10/01/2024 Wendy Kerry [facility] [address] [place] [address] 12/24/2024 Wendy Panence LUQ pain R10.12 [facility] [address] [place] [address] 01/06/2025 Wendy Kerry [facility] [address] [place] [address] 04/09/2024 Wendy Kerry Weight loss R63.4 ; Pre-syncope R55 and Elevated serum creatinine R79.89 [facility] [address] [place] [address] 08/28/2024 Wendy Cortez Myalgia, multiple si natalia M79.18 and Muscle cramping R25.2 [facility] [address] [place] [address] 01/10/2024 Wendy Cortez Dysuria R30.0 and Ac ekuk cystitis without hematuria N30.00 [facility] [address] [facility] [address] [place], [place] [address] 01/18/2024 Wendy Payne Syncope and collapse R55 ; Supraclavicular fossa fullness R22.2 ; Type 2 diabetes mellitus with other specified complication E11.69 and skilled nursing (current) use of insulin Z79.4 [facility] [address] [facility] [address] [place] [address] 10/09/2024 Wendy Cortez Lower abdominal pain R10.30 and Viral gastroenteritis A08.4 [facility] [address] [facility] [address] [place] [address] 10/17/2024 Wendy Payne LUQ pain R10.12 and Nausea without vomiting R11.0 [facility] [address] [facility] [address] [place] [address] 03/12/2024 Wendy Payne Syncope and collapse R55 ; Medicare annual wellness visit, subsequent Z00.00 ; Type 2 diabetes mellitus with other specified complication E11.69 ; skilled nursing (current) use of insulin Z79.4 ; Obstructive sleep apnea G47.33 ; Hypothyroidism E03.9 ; 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 ; Nonalcoholic steatohepatitis (FULLER) K75.81 ; RLS (restless legs syndrome) G25.81 ; BMI 33.0-33.9,adult Z68.33 ; Visit for screening mammogram Z12.31 and Asymptomatic postmenopausal state Z78.0 [facility] [address] [place], [place] [address] 09/30/2024 Wedny Payne Muscle cramping R25. 2 ; Type 2 diabetes mellitus with other specified complication E11.69 ; skilled nursing (current) use of insulin Z79.4 ; Hypothyroidism E03.9 ; Nonalcoholic steatohepatitis (FULLER) K75.81 ; RLS (restless legs syndrome) G25.81 and Peripheral neuropathic pain M79.2 [facility] [address] [facility] [address] [place] [address] 07/11/2024 Wendy Payne Type 2 diabetes mellitus with other specified complication E11.69 ; skilled nursing (current) use of insulin Z79.4 ; Hypothyroidism E03.9 ; Nonalcoholic steatohepatitis (FULLER) K75.81 ; Muscle spasm M62.838 ; RLS (restless legs syndrome) G25.81 and Peripheral neuropathic pain M79.2 [facility] [address] [place] [address] 11/11/2024 Wendy Payne Muscle cramping R25. 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 01/18/2024 Syncope and collapse (ICD-10 - R55) [...] and if unremarkable would recommend additional workup. 01/18/2024 Supraclavicular fossa fullness (ICD-10 - R22.2) 03/12/2024 Syncope and collapse (ICD-10 - R55) 03/12/2024 Medicare annual wellness visit, subsequent (ICD-10 - Z00.00) wellness updated as noted, update screenings as noted BP and glucose well controlled continue specialty FU as noted continue supplemental O2 at 02/09/2024 Breast cancer screening by mammogram (ICD-10 - Z12.31) 03/12/2024 Syncope and collapse (ICD-10 - R55) ED workup negative. Recommend decrease bumex and spironolactone to just once per day while undergoing additional workup 07/11/2024 Type 2 diabetes mellitus with other specified complication (ICD-10 - E11.69) No changes recommended to medication regimen unless indicated on lab results, goal A1C < 7. Eye exam UTD. Good candidate for diabetic shoes due to her recurring edema, callus formation, neuropathic pain. 07/11/2024 skilled nursing (current) use of insulin (ICD-10 - Z79.4) 08/28/2024 Myalgia, multiple sites (ICD-10 - M79.18) I personally will review all labs once final. 08/28/2024 Muscle cramping (ICD-10 - R25.2) Start [...] agrees with the plan of care above. 09/16/2024 Type 2 diabetes mellitus with other specified complication (ICD-10 - E11.69) 09/30/2024 Muscle cramping (ICD-10 - R25.2) lower extremities appear well perfused but if cramping continues would recommend LARRY's lower extremities. Continue good fluid intake and encoruaged regular stretching 10/09/2024 Lower abdominal pain (ICD-10 - R10.30) [...] vs ED. Patient and family voice understanding. 10/17/2024 LUQ pain (ICD-10 - R10.12) She is certainly high risk for pancreatitis given her diabetes and use of a GLP-1 inhibitor. Recommend labs as noted and encouraged her to hold her Ozempic until symptoms are completely resolved. 10/17/2024 Nausea without vomiting (ICD-10 - R11.0) 11/11/2024 Muscle cramping (ICD-10 - R25.2) lower extremities appear well perfused and symptoms are improved, no changes recommended 11/11/2024 Type 2 diabetes mellitus with other specified complication (ICD-10 - E11.69) Recent labs were stable, continue current regimen, labs again in 3 months 04/09/2024 Weight loss (ICD-10 - R63.4) 04/09/2024 Pre-syncope (ICD-10 - R55) Holter, echo, carotid Dopplers all without significant abnormalities. She reports improvement in symptoms. Again encouraged consistent p.o. intake, especially fluids. If this becomes problematic we will decrease the dose of her GLP-1 inhibitor. Repeat labs today. Return precautions reviewed 12/24/2024 LUQ pain (ICD-10 - R10.12) 04/09/2024 Elevated serum creatinine (ICD-10 - R79.89) 11/11/2024 skilled nursing (current) use of insulin (ICD-10 - Z79.4) 09/30/2024 Type 2 diabetes mellitus with other specified complication (ICD-10 - E11.69) Recent labs were stable. goal A1C < 7. Eye exam UTD. Good candidate for diabetic shoes due to her recurring edema, callus formation, neuropathic pain. 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 insulin (ICD-10 - Z79.4) 03/12/2024 rat exterminator (current) use of insulin (ICD-10 - Z79.4) 07/11/2024 Nonalcoholic steatohepatitis (FULLER) (ICD-10 - K75.81) continue dietary and weight loss efforts 09/30/2024 rat exterminator (current) use of insulin (ICD-10 - Z79.4) 11/11/2024 Contusion of lesser toe of right foot without damage to nail, initial encounter (ICD-10 - S90.121A) skin intact, discussed rest/ice and monitor for complications 09/30/2024 Hypothyroidism (ICD-10 - E03.9) continue replacement 07/11/2024 Muscle spasm (ICD-10 - M62.838) 03/12/2024 Obstructive sleep apnea (ICD-10 - G47.33) continue supplemental O2 at , symptoms improved with weight loss and has declined CPAP to this point 03/12/2024 Hypothyroidism (ICD-10 - E03.9) continue replacement 07/11/2024 RLS (restless legs syndrome) (ICD-10 - G25.81) low dose gabapentin 09/30/2024 Nonalcoholic steatohepatitis (FULLER) (ICD-10 - K75.81) continue dietary and weight loss efforts 09/30/2024 RLS (restless legs syndrome) (ICD-10 - G25.81) low dose gabapentin 07/11/2024 Peripheral neuropathic pain (ICD-10 - M79.2) 03/12/2024 Asthma with COPD (ICD-10 - J44.9) [facility] Pulmonology following 03/12/2024 Nonalcoholic steatohepatitis [...] Order Date Physical Therapy 08/11/2014 Physical Therapy 07/15/2009 Physical Therapy 06/20/2017 Mammogram : Bilateral 09/19/2016 Mammogram : Bilateral 02/09/2024 Mammogram : Bilateral 04/02/2020 Over Night Pulse Oximetry 11/15/2019 Dietary Consult 05/21/2014 C-CBC 08/11/2020 C-CMP 08/11/2020 C-HEPATITIS PANEL 08/11/2020 C-THYROID PROFILE 08/11/2020 C-AMMONIA 08/11/2020 C-HGBA1C 08/11/2020 C-BNP 08/11/2020 Pulmonary Function Test- Complete 2019 M-Complete Blood Count Auto Diff 024 M-Complete Blood Count Auto Diff 019 M-Basic Metabolic Panel 09/20/2018 IRON, TIBC AND FERRITIN PANEL (5616) 12/2023 COMPREHENSIVE METABOLIC PANEL (28926) BASIC METABOLIC PANEL (76628) 07/25/2023 VITAMIN D,25-OH,TOTAL,IA (96696) 025 Future Test Test Name Order Date C-BASIC METABOLIC 01/22/2016 H-CBC with AUTO DIFF 07/16/2016 H-CMP 07/16/2016 H-LIPID PANEL 07/16/2016 H-HGBA1C 07/16/2016 H-SED RATE 07/16/2016 C-CMP 09/20/2016 C-LIPID PANEL 09/20/2016 C-HGBA1C 09/20/2016 Next Appt Details Provider Name:Wendy Chahal ce, 02/10/2025 09:30:00 AM, [address] [facility], [address], [place], [address], Insurance Providers Payer Name Payer Address Payer Phone Subscriber Number Group Number Insured Name Patient Relationship to Insured Coverage Start Date Coverage End Date [employer] MED[employer] DUAL [address] [address] [place] [address] [id number] Luh Bosch Self - patient is the [...]
--- OUTSIDE RECORDS SUMMARY | 2025-01-06 10:10 | XMS_ITS | Encounter Summary ---
Author Organization [employer] ([place], [place], [place], [place]) Address [address] [place] [address] Care Team Providers Care Audiometric Technician Name Role Phone Unavailable Primary Care Provider Unavailabl e Encounter Details Date Type Department Care Team (Late st Contact Info) Description 10/04/2020 Transcribed Document [facility] [place] [address] [place] [address] ProviderRadha MD [address] [place] [address] Social History Tobacco Use [...] pedal edema. No cyanosis. Peripheral pulses palpable. GROCERY CLERK CHECKING: No focal deficit noted grossly. Cranial nerves [...] - Medical Enoxaparin 40 mg, SubCutaneous, Inj, [id number], Routine, Start 09/30/20 12:00:00 EDT, 09/30/20 11:44:00 [...] Daily Lovenox, 40 mg= 0.4 mL, SubCutaneous, [id number] magnesium sulfate, 2 Gram= 50 mL, IV [...] # 0.48 x10(3)/uL (Low) 10/04/2020 04:07 EDT [place] % 3.9 % 10/04/2020 04:07 EDT [place] # 0.34 K/uL 10/04/2020 04:07 EDT [facility] [...]
--- OUTSIDE RECORDS SUMMARY | 2025-01-06 10:10 | XMS_ITS | Encounter Summary ---
Author Organization [facility] ([place], [place], [place], [place]) Address [address] [place] [address] Care Team Providers Care Awning Craftsman Name Role Phone Unavailable Primary Care Provider Unavailabl e Encounter Details Date Type Department Care Team (Late st Contact Info) Description 10/04/2020 Transcribed Document [facility] [place] [address] [place] [address] ProviderRadha MD [address] [place] [address] Social History Tobacco Use Types [...] Historical ProviderMD - 10/04/2020 2:00 AM CDT Medical Assisting Instructor Details Entered On: 10/04/2020 2:14 EDT Performed [...] No Desire Verduzco - 10/04/2020 2:14 EDT documented in this encounter Plan of Treatment Not on file documented as of this encounter Visit Diagnoses Not on filedocumented in this encounter
--- OUTSIDE RECORDS SUMMARY | 2025-01-06 10:10 | XMS_ITS | Encounter Summary ---
Author Organization [employer] ([place], [place], [place], [place]) Address [address] [place] [address] Care Team Providers Care Ovens Supervisor Name Role Phone Unavailable Primary Care Provider Unavailabl e Encounter Details Date Type Department Care Team (Late st Contact Info) Description 10/03/2020 Transcribed Document [facility] Radiology [address] [place] [address] Malu Pemberton MD [address] [place], [place] [id number] Social History Tobacco Use Types Packs/Day Years [...] final culture obtained. Discussed with patient, nephrology aviation consultant and nursing. PT as tolerated Time spent with above 30 minutes documented in this encounter Plan of Treatment Not on file documented as of this encounter Visit Diagnoses Not on filedocumented in this encounter
--- OUTSIDE RECORDS SUMMARY | 2025-01-06 10:10 | XMS_ITS | Encounter Summary ---
Author Organization [employer] ([place], [place], [place], [place]) Address [address] [place] [address] Care Team Providers Care Oil Extractor Name Role Phone Unavailable Primary Care Provider Derrell rose Encounter Details Date Type Department Care Team (Late st Contact Info) Description 10/02/2020 Transcribed Document [facility] [place] [address] [place] [address] ProviderRadha MD [address] [place] [address] Social History Tobacco Use Types [...] mg, Oral, Daily Lovenox: 40 mg, SubCutaneous, [id number] MiraLax: 17 Gram, Oral, Daily, PRN: Constipation NORepinephrine injection 8 mg + NaCl 0.9% for drip 250 mL: Titrate, IntraVENous Phenergan: 6.25 mg, IntraVENous, Q6H, PRN: Nausea Rocephin: 1 Gram, 100 mL/Hr, IV Piggyback, [id number] Roxicodone: 5 mg, Oral, Q4H, PRN: Pain [...] History of obstructive sleep apnea / IMO [id number] / Confirmed, Active Problems (6) Diabetes mellitus [...] rn cct 33mins Electronically signed by Angela, [facility] Conversion Structural Rigger Cerner at 08/02/2022 6:16 PM CDT documented in this encounter Plan of Treatment Not on file documented as of this encounter Visit Diagnoses Not on filedocumented in this encounter
--- OUTSIDE RECORDS SUMMARY | 2025-01-06 10:10 | XMS_ITS | Encounter Summary ---
Author Organization [employer] ([place], [place], [place], [place]) Address [address] [place] [address] Care Team Providers Care Corrosion Control Engineer Name Role Phone Unavailable Primary Care Provider Unavailabl e Encounter Details Date Type Department Care Team (Late st Contact Info) Description 10/03/2020 Transcribed Document [facility] [place] [address] [place] [address] ProviderRadha MD [address] [place] [address] Social History Tobacco Use Types [...] Historical ProviderMD - 10/03/2020 2:00 AM CDT Stone Driller Helper Details Entered On: 10/03/2020 3:25 EDT Performed [...]
--- OUTSIDE RECORDS SUMMARY | 2025-01-06 10:10 | XMS_ITS | Encounter Summary ---
Author Organization [employer] ([place], [place], [place], [place]) Address [address] [place] [address] Care Team Providers Care Logistics Loss Prevention Manager Name Role Phone Unavailable Primary Care Provider Unavailabl e Encounter Details Date Type Department Care Team (Late st Contact Info) Description 10/13/2020 Transcribed Document [facility] [address] [place] [address] ProviderRadha MD [address] [place] [address] Social History Tobacco Use [...] Historical ProviderMD - 10/13/2020 2:00 AM CDT Crisis Therapist Details Entered On: 10/13/2020 6:37 EDT Performed [...] - 10/13/2020 6:37 EDT Electronically signed by Galen Miller Conversion Continuous Mining Machine Company Miner Sandra at 08/02/2022 6:24 PM CDT documented in this encounter Plan of Treatment Not on file documented as of this encounter Visit Diagnoses Not on filedocumented in this encounter
--- OUTSIDE RECORDS SUMMARY | 2025-01-06 10:10 | XMS_ITS | Encounter Summary ---
Author Organization [employer] ([place], [place], [place], [place]) Address [address] [place] [address] Care Team Providers Care Acid Purifier Name Role Phone Unavailable Primary Care Provider Unavailabl e Encounter Details Date Type Department Care Team (Late st Contact Info) Description 10/02/2020 Transcribed Document [facility] [place] [address] [place] [address] ProviderRadha MD [address] [place] [address] Social History Tobacco Use [...] pedal edema. No cyanosis. Peripheral pulses palpable. INTERNAL GRINDER: No focal deficit noted grossly. Cranial nerves [...] - Medical Enoxaparin 40 mg, SubCutaneous, Inj, [id number], Routine, Start 09/30/20 12:00:00 EDT, 09/30/20 11:44:00 [...] Daily Lovenox, 40 mg= 0.4 mL, SubCutaneous, [id number] magnesium sulfate, 2 Gram= 50 mL, IV [...]
--- OUTSIDE RECORDS SUMMARY | 2025-01-06 10:10 | XMS_ITS | Encounter Summary ---
Author Organization [employer] ([place], [place], [place], [place]) Address [address] [place] [address] Care Team Providers Care Art Consultant Name Role Phone Unavailable Primary Care Provider Unavailabl e Encounter Details Date Type Department Care Team (Late st Contact Info) Description 10/02/2020 Transcribed Document [facility] [place] [address] [place] [address] ProviderRadha MD [address] [place] [address] Social History Tobacco Use Types [...] meal orders prn. Pt willing to try [id number] BID. RD to add. Will f/up as scheduled. Mariam Cohen Dietitian - 10/02/2020 10:47 EDT documented in this encounter Plan of Treatment Not on file documented as of this encounter Visit Diagnoses Not on filedocumented in this encounter
== END 2025-01-06 23:59 | disposition home or self-care (01) ==
LOC: RAD 09:51
PROVIDERS: PCP Nurse Practitioner Family; Visit Provider Podiatrist
DX: S92.534D Nondisplaced fracture of distal phalanx of right lesser toe(s), subsequent encounter for fracture with routine healing (principal); X58.XXXD Exposure to other specified factors, subsequent encounter
CPT/HCPCS: 73630

== ENCOUNTER 2025-02-25 08:23 | Day surgery (SDC) | payer MEDICARE, MEDICAID, SELFPAY ==
[2025-02-25 10:31] VITALS: BMI 32.0
[2025-02-25 10:32] VITALS: BP 133/87; PULSE 68; RESP 17; TEMP 36.2; O2SAT 95
[2025-02-25] MEDS: TROPICAMIDE 1% OPTH SOLN 2ML OP (10:36)
[2025-02-25] MEDS: TETRACAINE 0.5% OPTH SOL 15ML OP (10:36)
[2025-02-25] MEDS: APRACLONIDINE 0.5% OPHTH SOLN 5ML OP (10:37)
[2025-02-25] MEDS: PHENYLEPHRINE 2.5% OPHTH SOLN 2ML OP (10:39)
--- NOTE | 2025-02-25 12:14 | P.PCN_ITS ---
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 The patient has noticed that the vision has decreased from the previous good level postop. The patient reports that he/she is having trouble reading and/or driving or that glare is giving them a problem. On exam, the patient was found to have visually significant posterior capsular opacification. The treatment options, risks and benefits were explained and the patient elected to have YAG laser capsulotomy in an attempt to improve the vision. Of note, the best corrected visual acuity is in the 23/30 or worse range by refraction or glare testing. The eye was dilated and 1 drop of 0.5% Iopidine applied. YAG laser energy was applied to the posterior capsular bag with good formation of an opening and no complications were noted. The patient will be seen back for follow up in 2 weeks OD 91mj/15 pulses OS 80mj/13pulses
== END 2025-02-25 12:20 | disposition home or self-care (01) ==
PROVIDERS: PCP Nurse Practitioner Family; Visit Provider Ophthalmology
PROC: (CPT 66821; principal; 2025-02-25 12:00)
DX: H26.493 Other secondary cataract, bilateral (principal); J44.89 Other specified chronic obstructive pulmonary disease; E11.9 Type 2 diabetes mellitus without complications; I10 Essential (primary) hypertension; E03.9 Hypothyroidism, unspecified; E78.00 Pure hypercholesterolemia, unspecified; F41.9 Anxiety disorder, unspecified; F32.A Depression, unspecified; K21.9 Gastro-esophageal reflux disease without esophagitis; Z87.891 Personal history of nicotine dependence; Z88.0 Allergy status to penicillin; Z88.5 Allergy status to narcotic agent; Z79.85 Long-term (current) use of injectable non-insulin antidiabetic drugs; Z79.890 Hormone replacement therapy; Z79.4 Long term (current) use of insulin; Z79.51 Long term (current) use of inhaled steroids; Z79.82 Long term (current) use of aspirin; Z79.899 Other long term (current) drug therapy
CPT/HCPCS: 66821

== ENCOUNTER 2025-04-03 09:17 | Outpatient (CLI) | payer MEDICARE, MEDICAID, SELFPAY ==
--- OUTSIDE RECORDS SUMMARY | 2024-07-20 16:30 | XMS_ITS ---
Author Organization [facility] Address [address] [place] [address] Care Team Providers Care Middle School Teacher Name Role Phone Clarence Ram Primary Care Provider Migration, Provider Unavailable Unavailable Allergies Allergen (clinical drug ingredient) Drug/Non Drug Allergy documented on EMR Reaction Allergy Type Onset Date Status Fish FISH (uncoded) Unknown Allergy Activ e hydromorphone Dilaudid Unknown Drug Allergy Act caro morphine Morphine Unknown Drug Allergy Active Penicillin Unknown Drug Allergy Active REASON FOR VISIT [facility] To [facility] Conversion Encounter Medications Medication SIG (Take, Route, Frequency, Duration) Notes Start Date End Date Status Bumetanide 1 MG 1 tab(s) orally 2 times a day; Duration: 90 days Active MIDODRINE HYDROCHLORIDE 10 MG 1 TAB(S) ORALLY 3 TIMES A DAY NEEDED; Duration: 90 DAYS prn *Please review for potential replacement for e-prescription and drug interaction check* Active Levothyroxine Sodium 50 MCG 1 tab(s) orally once a day; Duration: 90 days Active OZEMPIC 8 MG/3 ML (2 MG DOSE) 2 MG SUBCUTANEOUSLY ONCE A WEEK; Duration: 28 DAYS *Please review for potential replacement for e-prescription and drug interaction check* Active Potassium Chloride ER 10 MEQ 2 cap(s) orally 2 times a day; Duration: 90 days Active Farxiga 10 MG 1 tab(s) orally once a day; Duration: 90 days Active Spironolactone 25 MG 2 tabs orally once a day; Duration: 90 days Active Montelukast Sodium 10 MG 1 tab(s) orally once a day; Duration: 90 days Active Omeprazole 40 MG 1 cap(s) orally once a day; Duration: 90 days Active Gabapentin 100 MG 2 caps orally 2 times a day; Duration: 30 day(s) 01/31/2024 Active PRODIGY NO CODING TEST STRIPS NA FOR DIABETIC TESTING FINGERSTICK FOUR TIMES DAILY; Duration: 90 DAYS *Please review for potential replacement for e-prescription and drug interaction check* 04/30/2021 Active Aspirin Low Dose 81 MG TAKE ONE TABLET BY MOUTH ONCE A DAY Active Atorvastatin Calcium 40 MG 1 tab(s) orally once a day; Duration: 90 days Active HumaLOG KwikPen 100 UNIT/ML 4 units subcutaneously 3 times a day with meals; Duration: 30 days 09/28/2023 Active Lantus 100 UNIT/ML 35 units subcutaneously once a day; Duration: 30 days 09/04/2023 Active Diclofenac Sodium 1 % 2 grams applied topically 4 times a day to knees and prn; Duration: 30 days 04/06/2021 Active Senna Plus 8.6-50 MG 1 tablet orally 2 times a day as needed for constipation; Duration: 30 days Active Famotidine 20 MG 1 tab(s) orally once a day (at bedtime); Duration: 90 days Active Cetirizine HCl 10 MG 1 tab(s) orally onc e a day; Duration: 30 days Active Magnesium Oxide 400 MG 1 tab(s) orally once a day; Duration: 30 day(s) Active Advair HFA 115 MCG-21 MCG 2 INH INHALED 2 TIMES A DAY *Please review and pick correct strength-formulat ion from [employer] options. If intended option is not shown, discontinue and re-order from Quick Search* Active Acetaminophen 500 MG 1 tablet orally every 6 hours as needed for pain or fever 04/06/2021 Active Dicyclomine HCl 20 MG 1 tab(s) orally every 6 hours as needed for stomach cramping or diarrhea; Duration: 10 days 07/26/2021 Active Multivitamin - 1 tab(s) orally once a day Active Calcium 600 + D 600 MG-20 MCG 1 TAB(S) ORALLY 2 TIMES A DAY; Duration: 30 DAY(S) *Please review and pick correct strength-formulat ion from [employer] options. If intended option is not shown, discontinue and re-order from Quick Search* Active Encounters Encounter Location Date Provider Diagnosis [facility] [address] [place] [address] 07/20/2024 Provider Migration Plan Of Treatment Next Appt Details Provider Name:Wendy Chahal ce, 05/12/2025 10:00:00 AM, [address], [address], [place], [address], Progress Notes * Luh BOSCHDOB:1960 ( 64 yo F)Acc No.[id number]:07/20/2024 Patient: Luh COSTA Provider: Hunter torres Migration :1960 A ge:63 Y S ex:Female Date:07/20/2024 Address:[address] [place] [address], [facility], [id number] Pcp:Clarence Ram Subjective: * Chief Complaints: * 1 . Multum To Medispan Conversion Encounter. * Medical History: * Medications: T aking Advair HFA 115 MCG-21 MCG AEROSOL 2 INH INHALED 2 TIMES A DAY , Notes to Pharmacist: *Please review and pick correct strength-formulation from [employer] options. If intended option is not shown, discontinue and re-order from Quick Search*, Taking Multivitamin - Tablet 1 tab(s) orally once a day , Taking Calcium 600 + D 600 MG-20 MCG TABLET 1 TAB(S) ORALLY 2 TIMES A DAY , Notes to Pharmacist: *Please review and pick correct strength-formulation from [employer] options. If intended option is not shown, discontinue and re-order from Quick Search*, Taking Acetaminophen 500 MG Tablet 1 tablet orally every 6 hours as needed for pain or fever , Taking Dicyclomine HCl 20 MG Tablet 1 tab(s) orally every 6 hours as needed for stomach cramping or diarrhea , Taking Famotidine 20 MG Tablet 1 tab(s) orally once a day (at bedtime) , Taking Cetirizine HCl 10 MG Tablet 1 tab(s) orally once a day , Taking Diclofenac Sodium 1 % Gel 2 grams applied topically 4 times a day to knees and prn , Taking Senna Plus 8.6-50 MG Tablet 1 tablet orally 2 times a day as needed for constipation , Taking Magnesium Oxide 400 MG Tablet 1 tab(s) orally once a day , Taking PRODIGY NO CODING TEST STRIPS NA NA FOR DIABETIC TESTING FINGERSTICK FOUR TIMES DAILY , Notes to Pharmacist: *Please review for potential replacement for e-prescription and drug interaction check*, Taking Aspirin Low Dose 81 MG Tablet Delayed Release TAKE ONE TABLET BY MOUTH ONCE A DAY , Taking HumaLOG KwikPen 100 UNIT/ML Solution Pen-injector 4 units subcutaneously 3 times a day with meals , Taking Lantus 100 UNIT/ML Solution 35 units subcutaneously once a day , Taking Atorvastatin Calcium 40 MG Tablet 1 tab(s) orally once a day , Taking Gabapentin 100 MG Capsule 2 caps orally 2 times a day , Taking Montelukast Sodium 10 MG Tablet 1 tab(s) orally once a day , Taking Omeprazole 40 MG Capsule Delayed Release 1 cap(s) orally once a day , Taking Farxiga 10 MG Tablet 1 tab(s) orally once a day , Taking Spironolactone 25 MG Tablet 2 tabs orally once a day , Taking Levothyroxine Sodium 50 MCG Tablet 1 tab(s) orally once a day , Taking Bumetanide 1 MG Tablet 1 tab(s) orally 2 times a day , Taking MIDODRINE HYDROCHLORIDE 10 MG TABLET 1 TAB(S) ORALLY 3 TIMES A DAY NEEDED , Notes to Pharmacist: prn *Please review for potential replacement for e-prescription and drug interaction check*, Taking OZEMPIC 8 MG/3 ML (2 MG DOSE) SOLUTION 2 MG SUBCUTANEOUSLY ONCE A WEEK , Notes to Pharmacist: *Please review for potential replacement for e-prescription and drug interaction check*, Taking Potassium Chloride ER 10 MEQ Capsule Extended Release 2 cap(s) orally 2 times a day * Allergies: M orphine, Penicillin, Dilaudid, FISH. Objective: * Vitals: Assessment: Plan: * Treatment: * * Electronic signature of Hailee harris Migration on 04/03/2025 at 09:28 AM EST Sign off status: Pending * Provider: Hunter torres Migration Date: 0 07/20/2024 Generated for Tomasa alarcon/Christian/Alie on: 06/04/2024 09:28 AM EST
--- OUTSIDE RECORDS SUMMARY | 2025-02-10 04:30 | XMS_ITS ---
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 Name Role Phone Clarence Ram Primary Care Provider [phone] Wendy Payne [phone] Allergies Allergen (clinical drug ingredient) Drug/Non Drug Allergy documented on EMR Reaction Allergy Type Onset Date Status Fish FISH (uncoded) Unknown Allergy Activ e hydromorphone Dilaudid Unknown Drug Allergy Act caro morphine Morphine Unknown Drug Allergy Active Penicillin Unknown Drug Allergy Active Results Component Value Reference Range Notes LIPID PANEL, STANDARD (7600) Reviewed date:02/12/2025 12:10:59 PM Interpretation: Performing Lab:[facility], [facility] [id number], [facility] [id number] Ajay Culver Notes/Report: NON-FASTING; NON-FASTING; NON-FASTING; NON-FASTING; NON-FAST FASTING:YES FASTING: YES CHOLESTEROL, TOTAL 119 <200 mg/dL HDL CHOLESTEROL 53 > OR = 50 mg/dL TRIGLYCERIDES 97 <150 mg/dL LDL-CHOLESTEROL 48 Reference range: <100 Desirable range <100 mg/dL for primary prevention; <70 mg/dL for patients with CHD or diabetic patients with > or = 2 CHD risk factors. LDL-C is now calculated using the Meryl calculation, which is a validated novel method providing better accuracy than the Friedewald equation in the estimation of LDL-C. Floyd CARLSON et al. NURA. 2013;310(19): 1355-9824 (http://education.[employer]/faq/HVC554) CHOL/HDLC RATIO 2.2 <5.0 (calc) NON HDL CHOLESTEROL 66 <130 mg/dL (calc) For patients with diabetes plus 1 major ASCVD risk factor, treating to a non-HDL-C goal of <100 mg/dL (LDL-C of <70 mg/dL) is considered a therapeutic option. COMPREHENSIVE METABOLIC PANE Susanna (80736) Reviewed date:02/12/2025 12:10:59 PM Interpretation: Performing Lab:CB, [facility], [employer] [id number] Ajay Culver Notes/Report: NON-FASTING; NON-FASTING; NON-FASTING; NON-FASTING; NON-FAST FASTING:YES FASTING: YES GLUCOSE 98 65-99 mg/dL Fasting reference interval UREA NITROGEN (BUN) 26 7-25 mg/dL CREATININE 1.07 0.50-1.05 mg/dL EGFR 58 > OR = 60 mL/min/1.73m2 BUN/CREATININE RATIO 24 6-22 (calc) SODIUM 140 135-146 mmol/L POTASSIUM 5.1 3.5-5.3 mmol/L CHLORIDE 104 98-110 mmol/L CARBON DIOXIDE 25 20-32 mmol/L CALCIUM 9.2 8.6-10.4 mg/dL PROTEIN, TOTAL 6.8 6.1-8.1 g/dL ALBUMIN 3.9 3.6-5.1 g/dL GLOBULIN 2.9 1.9-3.7 g/dL (calc) ALBUMIN/GLOBULIN RATIO 1.3 1.0-2.5 (calc) BILIRUBIN, TOTAL 0.8 0.2-1.2 mg/dL ALKALINE PHOSPHATASE 91 37-153 U/L AST 18 10-35 U/L ALT 16 6-29 U/L CBC (INCLUDES DIFF/PLT) (639 9) Reviewed date:02/12/2025 12:10:59 PM Interpretation: Performing Lab:[facility], [facility], [employer] [id number] Ajay Culver Notes/Report: NON-FASTING; NON-FASTING; NON-FASTING; NON-FASTING; NON-FAST FASTING:YES FASTING: YES WHITE BLOOD CELL COUNT 6.2 3.8-10.8 Thousand/ uL RED BLOOD CELL COUNT 5.24 3.80-5.10 Million/uL HEMOGLOBIN 15.4 11.7-15.5 g/dL HEMATOCRIT 46.6 35.0-45.0 % MCV 88.9 80.0-100.0 fL MCH 29.4 27.0-33.0 pg MCHC 33.0 32.0-36.0 g/dL For adults, a slight decrease in the calculated MCHC value (in the range of 30 to 32 g/dL) is most likely not clinically significant; however, it should be interpreted with caution in correlation with other red cell parameters and the patient's clinical condition. RDW 12.9 11.0-15.0 % PLATELET COUNT 311 140-400 Thousand/uL MPV 10.3 7.5-12.5 fL ABSOLUTE NEUTROPHILS 3106 7592-8070 cells/uL ABSOLUTE LYMPHOCYTES 2151 850-3900 cells/uL ABSOLUTE MONOCYTES 515 200-950 cells/uL ABSOLUTE EOSINOPHILS 360 15-500 cells/uL ABSOLUTE BASOPHILS 68 0-200 cells/uL NEUTROPHILS 50.1 LYMPHOCYTES 34.7 MONOCYTES 8.3 EOSINOPHILS 5.8 BASOPHILS 1.1 HEMOGLOBIN A1c (496) Reviewed date:02/12/2025 12:10:59 PM Interpretation: Performing Lab:[email or web address] Ajay Culver Notes/Report: NON-FASTING; NON-FASTING; NON-FASTING; NON-FASTING; NON-FAST FASTING:YES FASTING: YES HEMOGLOBIN A1c 6.6 <5.7 % For someone without known diabetes, a hemoglobin [...] diabetes for children. TSH W/REFLEX TO FT4 (60507) Reviewed date:02/12/2025 12:10:59 PM Interpretation: Performing Lab:[facility] [employer], [employer] [id number] Ajay Culver Notes/Report: NON-FASTING; NON-FASTING; NON-FASTING; NON-FASTING; NON-FAST FASTING:YES FASTING: YES TSH W/REFLEX TO FT4 1.19 0.40-4.50 mIU/L REASON FOR VISIT 3 Month F/U-fasting, fluid build-up Medications Medication SIG (Take, Route, Frequency, Duration) Notes Start Date End Date Status tiZANidine HCl 2 mg TAKE 1 TABLET BY [facility] 2 TIMES A DAY; Duration: 30 Active Ozempic (2 MG/DOSE) 8 MG/3ML INJECT 2 MG SUBCUTANEOUSLY ONCE WEEKLY; Duration: Active BD Pen Needle Brandy 2nd Gen 32G X 4 MM as directed once a day; Duration: 90 days 01/28/2025 Active Gabapentin 100 mg TAKE 2 CAPSULES BY [facility] 2 TIMES A DAY; Duration: 30 02/02/2025 Active Nystop 123936 UNIT/GM 1 application Exte rnally Twice a day; Duration: 10 days 02/10/2025 Active Lantus SoloStar 100 UNIT/ML 40 units Subcutaneous once a day; Duration: 30 days 01/28/2025 Active HumaLOG KwikPen 100 UNIT/ML 4 units subcutaneously 3 times a day with meals 09/28/2023 Active Omeprazole 40 MG 1 cap(s) orally once a day; Duration: 90 days Active Promethazine HCl 12.5 MG 1 tablet as needed Orally every 8 hours; Duration: 5 days As needed nausea. 10/09/2024 Active Potassium Chloride ER 10 mEq TAKE 2 CAPSULES BY MOUTH 2 TIMES A DAY; Duration: 30 Active Levothyroxine Sodium 50 MCG 1 tab(s) orally once a day; Duration: 90 days Active Bumetanide 1 MG 1 tab(s) orally 2 ti mes a day; Duration: 90 days Active MIDODRINE HYDROCHLORIDE 10 MG 1 TAB(S) ORALLY 3 TIMES A DAY NEEDED; Duration: 90 DAYS prn Active Farxiga 10 MG 1 tab(s) orally once a day; Duration: 90 days Active Spironolactone 25 MG 2 tabs orally once a day; Duration: 90 days Active Atorvastatin Calcium 40 MG 1 tab(s) oral ly once a day; Duration: 90 days Active Montelukast Sodium 10 MG 1 tab(s) orally once a day; Duration: 90 days Active Senna Plus 8.6-50 MG 1 tablet orally 2 t imes a day as needed for constipation; Duration: 30 days Active Magnesium Oxide 400 MG 1 tab(s) orally o nce a day; Duration: 30 day(s) Active Aspirin Low Dose 81 MG TAKE ONE TABLET B Y MOUTH ONCE A DAY Active Acetaminophen 500 MG 1 tablet orally sully ry 6 hours as needed for pain or fever 04/06/2021 Active Dicyclomine HCl 20 MG 1 tab(s) orally ev eddi 6 hours as needed for stomach cramping or diarrhea; Duration: 10 days 07/26/2021 Active Famotidine 20 MG 1 tab(s) orally once a day (at bedtime); Duration: 90 days Active Cetirizine HCl 10 MG 1 tab(s) orally onc e a day; Duration: 30 days Active Diclofenac Sodium 1 % 2 grams applied to pically 4 times a day to knees and prn; Duration: 30 days 04/06/2021 Active Advair HFA 115 MCG-21 MCG 2 INH INHALED 2 TIMES A DAY Active Multivitamin - 1 tab(s) orally once a day Active Calcium 600 + D 600 MG-20 MCG 1 TAB(S) ORALLY 2 TIMES A DAY; Duration: 30 DAY(S) Active Social History Tobacco Use: Social History Observation Description Date Details (start date - stop date) Former Smoker NA - NA Smoking: Question Answer Notes Are you a: former smoker How long has it been since you last smoked? 1-5 years Section Notes: stopped smoking 2015, smoked 42 years on average around 1/2 ppd Vital Signs Temperature 97.6 degrees Fahrenheit 02/11/20 25 Blood pressure systolic 102 mm Hg 02/11/20 25 Blood pressure diastolic 64 mm Hg 025 Heart Rate 78 /min 02/10/2025 Height 62 in 02/10/2025 Weight 187 lbs 02/10/2025 BMI 34.2 kg/m2 02/10/2025 Encounters Encounter Location Date Provider Diagnosis [facility] [place] [address] [place] [address] 02/10/2025 Wendy Payne Muscle cramping R25. 2 ; Type 2 diabetes mellitus with other specified complication E11.69 ; long-term (current) use of insulin Z79.4 ; Hypothyroidism E03.9 ; Nonalcoholic steatohepatitis (FULLER) K75.81 ; RLS (restless legs syndrome) G25.81 ; Peripheral neuropathic pain M79.2 and Yeast dermatitis B37.2 Assessments Encounter Date Diagnosis (ICD Code) Assessment Notes Treatment Notes Treatment Clinical Notes Section Notes 02/10/2025 Muscle cramping (ICD-10 - R25.2) Continue good fluid intake and encoruaged regular stretching and muscle relaxer as needed 02/10/2025 Type 2 diabetes mellitus with other specified complication (ICD-10 - E11.69) Recent labs were stable. goal A1C < 7. Eye exam UTD. Repeat labs today. Will also attempt to get coverage of CGM to help with monitoring and avoidance of complications such as hypoglycemia 02/10/2025 terminal gauger (current) use of insulin (ICD-10 - Z79.4) 02/10/2025 Hypothyroidism (ICD-10 - E03.9) continue replacement 02/10/2025 Nonalcoholic steatohepatitis (FULLER) (ICD-10 - K75.81) continue dietary and weight loss efforts 02/10/2025 RLS (restless legs syndrome) (ICD-10 - G25.81) low dose gabapentin 02/10/2025 Peripheral neuropathic pain (ICD-10 - M79.2) 02/10/2025 Yeast dermatitis (ICD-10 - B37.2) Plan Of Treatment Medication Medication Name Sig Start Date Stop Date Notes Nystop 140628 UNIT/GM 1 application Exte rnally Twice a day; Duration: 10 days 02/10/2025 Pending Test Test Name Order Date Microalbumin (In-House) 02/10/2025 Next Appt Details Follow Up: 3 Months, Reason: Provider Name:Wendy shrestha, 05/12/2025 10:00:00 AM, [address], [address], [place], [address], Progress Notes * Luh BOSCHDOB:1960 ( 64 yo F)Acc No.[id number]:02/10/2025 Progress Notes Patient: Luh COSTA Provider: COBY Busby :1960 A ge:64 Y S ex:Female Date:02/10/2025 Address: , [address], [place], [id number] Pcp:Clarence Ram Subjective: * Chief Complaints: * 1 . 3 Month F/U-fasting. 2. Fluid build-up. * HPI: g en: 64-year-old female presents today for chronic disease FU. She notes some increase in edema of her lower extremities over the past couple of weeks and relates this to some increase in physical activity. She did increase her aldactone back to 2 tablets daily just about 5 days ago. No new SOA or CP and no syncopal events. Muslce spasms are improved overall. Weight is stable, back up some since last visit. Glucose control has been good overall. Checks blood sugars at home avg 90-130. [...] es, i mproving with RX. D ERMATOLOGY: Rash y es, s ome early recurrence of dermatitis in the abdominal pannus skin folds. E NDOCRINOLOGY: no S leep disturbance. D [...] INH INHALED 2 TIMES A DAY , Taking Multivitamin - Tablet 1 tab(s) orally once a day , Taking Calcium 600 + D 600 MG-20 MCG TABLET 1 TAB(S) ORALLY 2 TIMES A DAY , Taking Acetaminophen 500 MG Tablet 1 tablet [...] A DAY NEEDED , Notes to Pharmacist: prn, Taking Farxiga 10 MG Tablet 1 tab(s) orally once a day , Taking HumaLOG KwikPen 100 UNIT/ML Solution Pen-injector 4 units subcutaneously 3 times a day with meals , Taking Omeprazole 40 MG Capsule Delayed Release 1 cap(s) orally once a day , Taking Promethazine HCl 12.5 MG Tablet 1 tablet as needed Orally every 8 hours As needed nausea., Taking Potassium Chloride ER 10 mEq Capsule Extended Release TAKE 2 CAPSULES BY MOUTH 2 TIMES A DAY , Taking Lantus SoloStar 100 UNIT/ML Solution Pen-injector 40 units Subcutaneous once a day , Taking BD Pen Needle Brandy 2nd Gen 32G X 4 MM Miscellaneous as directed once a day , Taking Gabapentin 100 mg Capsule TAKE 2 CAPSULES BY MOUTH 2 TIMES A DAY , Taking tiZANidine HCl 2 mg Tablet TAKE 1 TABLET BY MOUTH 2 TIMES A DAY , Taking Ozempic (2 MG/DOSE) 8 MG/3ML Solution Pen-injector INJECT 2 MG SUBCUTANEOUSLY ONCE WEEKLY , Medication List reviewed and reconciled with the patient * Allergies: M orphine, Penicillin, Dilaudid, FISH. Objective: * Vitals: N urse: jl, Pain: 0, Temp: 97.6, RR: 18, HR: 78, BP: 102/64, Ht: 62, Wt: 187, BMI:34.2. * Examination: G eneral Examination: General P leasant and Cooperative, NAD on RA,. Oral cavity: M oist membranes. Heart: R egular Rate and Rhythm, no murmur, rubs or gallops. Lungs: c lear to auscultation,. Abdomen: S oft, NTND, BSNA, No organomegaly or peritoneal signs.. Skin: m ild erythema in the skin folds of the abdomen but no rash otherwise. Peripheral pulses: d iminished, bilaterally symetrical. 1+ pp. Extremities: v aricose veins bilat lower extremities and bilat lymphedematous changes but no warmth or ulcerations. neck s upple,, no thyromegaly,, no lymphadenopathy,. Psych N ormal Mood/Affect. diabetic foot exam V isual exam of foot performed: Y es. Assessment: * Assessment: 1. T ype 2 diabetes mellitus with other specified complication - E11.69 (Primary) ?2. M uscle cramping - R25.2 3 . L roby term (current) use of insulin - Z79.4 4 . H ypothyroidism - E03.9 5 . N onalcoholic steatohepatitis (FULLER) - K75.81 6 . R LS (restless legs syndrome) - G25.81 ?7. P eripheral neuropathic pain - M79.2 8 . Y east dermatitis - B37.2 Plan: * Treatment: Value Reference Range T RIGLYCERIDES 97 <150 - mg/dL * C HOLESTEROL, TOTAL 119 <200 - mg/dL * H DL CHOLESTEROL 53 > OR = 50 - mg/dL * L DL-CHOLESTEROL 48 - mg/dL (calc) * C HOL/HDLC RATIO 2.2 <5.0 - (calc) * N ON HDL CHOLESTEROL 66 <130 - mg/dL (calc) * Vicenta Ortega 02/12/2025 12: 10:30 PM EDT > pt informedThis lab was reviewed by Vicenta Ortega on 02/12/2025 at 12:10 PM EDT ?LAB: COMPREHENSIVE METABOLIC PANEL (04336)* Value Reference Range G LUCOSE 98 65-99 - mg/dL * U LOCO NITROGEN (BUN) 26 H 7-25 - mg/dL * C REATININE 1.07 H 0.50-1.05 - mg/dL * B UN/CREATININE RATIO 24 H 6-22 - (calc) * S ODIUM 140 135-146 - mmol/L * P OTASSIUM 5.1 3.5-5.3 - mmol/L * C HLORIDE 104 98-110 - mmol/L * C ARBON DIOXIDE 25 20-32 - mmol/L * C ALCIUM 9.2 8.6-10.4 - mg/dL * P ROTEIN, TOTAL 6.8 6.1-8.1 - g/dL * A LBUMIN 3.9 3.6-5.1 - g/dL * G LOBULIN 2.9 1.9-3.7 - g/dL (calc ) * A LBUMIN/GLOBULIN RATIO 1.3 1.0-2.5 - (calc) * B ILIRUBIN, TOTAL 0.8 0.2-1.2 - mg/dL * A LKALINE PHOSPHATASE 91 37-153 - U/L * A ST 18 10-35 - U/L * A LT 16 6-29 - U/L * E GFR 58 L > OR = 60 - mL/min/1 .73m2 * Vicenta Ortega 02/12/2025 12: 10:30 PM EDT > pt informedThis lab was reviewed by Vicenta Ortega on 02/12/2025 at 12:10 PM EDT ?LAB: CBC (INCLUDES DIFF/PLT) (4643)* Value Reference Range W MICHEAL BLOOD CELL COUNT 6.2 3.8-10.8 - Thousan d/uL * R ED BLOOD CELL COUNT 5.24 H 3.80-5.10 - Million/ uL * H EMOGLOBIN 15.4 11.7-15.5 - g/dL * H EMATOCRIT 46.6 H 35.0-45.0 - % * M CV 88.9 80.0-100.0 - fL * M CH 29.4 27.0-33.0 - pg * M CHC 33.0 32.0-36.0 - g/dL * R DW 12.9 11.0-15.0 - % * P LATELET COUNT 311 140-400 - Thousand/u L * N EUTROPHILS 50.1 - % * A BSOLUTE NEUTROPHILS 3106 5140-4912 - cells/uL * L YMPHOCYTES 34.7 - % * A BSOLUTE LYMPHOCYTES 2151 850-3900 - cells/uL * M ONOCYTES 8.3 - % * A BSOLUTE MONOCYTES 515 200-950 - cells/uL * E OSINOPHILS 5.8 - % * A BSOLUTE EOSINOPHILS 360 15-500 - cells/uL * B ASOPHILS 1.1 - % * A BSOLUTE BASOPHILS 68 0-200 - cells/uL * M PV 10.3 7.5-12.5 - fL * Vicenta Ortega 02/12/2025 12: 10:30 PM EDT > pt informedThis lab was reviewed by Vicenta Ortega on 02/12/2025 at 12:10 PM EDT ?LAB: HEMOGLOBIN A1c (496)* Value Reference Range H EMOGLOBIN A1c 6.6 H <5.7 - % * Vicenta Ortega 02/12/2025 12: 10:30 PM EDT > pt informedThis lab was reviewed by Vicenta Ortega on 02/12/2025 at 12:10 PM EDT ?LAB: TSH W/REFLEX TO FT4 (26765)* Value Reference Range T SH W/REFLEX TO FT4 1.19 0.40-4.50 - mIU/L * Vicenta Ortega 02/12/2025 12: 10:30 PM EDT > pt informedThis lab was reviewed by Vicenta Ortega on 02/12/2025 at 12:10 PM EDT Clinical Notes: Recent labs were stable. goal A1C < 7. Eye exam UTD. Repeat labs today. Will also attempt to get coverage of CGM to help with monitoring and avoidance of complications such as hypoglycemia??2.?Muscle cramping? Clinical Notes: Continue good fluid intake and encoruaged regular stretching and muscle relaxer as needed??3.?Hypothyroidism?LAB: LIPID PANEL, STANDARD (0540)* Value Reference Range T RIGLYCERIDES 97 <150 - mg/dL * C HOLESTEROL, TOTAL 119 <200 - mg/dL * H DL CHOLESTEROL 53 > OR = 50 - mg/dL * L DL-CHOLESTEROL 48 - mg/dL (calc) * C HOL/HDLC RATIO 2.2 <5.0 - (calc) * N ON HDL CHOLESTEROL 66 <130 - mg/dL (calc) * Vicetna Ortega 02/12/2025 12: 10:30 PM EDT > pt informedThis lab was reviewed by Vicenta Ortega on 02/12/2025 at 12:10 PM EDT ?LAB: COMPREHENSIVE METABOLIC PANEL (77097)* Value Reference Range G LUCOSE 98 65-99 - mg/dL * U LOCO NITROGEN (BUN) 26 H 7-25 - mg/dL * C REATININE 1.07 H 0.50-1.05 - mg/dL * B UN/CREATININE RATIO 24 H 6-22 - (calc) * S ODIUM 140 135-146 - mmol/L * P OTASSIUM 5.1 3.5-5.3 - mmol/L * C HLORIDE 104 98-110 - mmol/L * C ARBON DIOXIDE 25 20-32 - mmol/L * C ALCIUM 9.2 8.6-10.4 - mg/dL * P ROTEIN, TOTAL 6.8 6.1-8.1 - g/dL * A LBUMIN 3.9 3.6-5.1 - g/dL * G LOBULIN 2.9 1.9-3.7 - g/dL (calc ) * A LBUMIN/GLOBULIN RATIO 1.3 1.0-2.5 - (calc) * B ILIRUBIN, TOTAL 0.8 0.2-1.2 - mg/dL * A LKALINE PHOSPHATASE 91 37-153 - U/L * A ST 18 10-35 - U/L * A LT 16 6-29 - U/L * E GFR 58 L > OR = 60 - mL/min/1 .73m2 * Vicenta Ortega 02/12/2025 12: 10:30 PM EDT > pt informedThis lab was reviewed by Vicenta Ortega on 02/12/2025 at 12:10 PM EDT ?LAB: CBC (INCLUDES DIFF/PLT) (3382)* Value Reference Range W MICHEAL BLOOD CELL COUNT 6.2 3.8-10.8 - Thousan d/uL * R ED BLOOD CELL COUNT 5.24 H 3.80-5.10 - Million/ uL * H EMOGLOBIN 15.4 11.7-15.5 - g/dL * H EMATOCRIT 46.6 H 35.0-45.0 - % * M CV 88.9 80.0-100.0 - fL * M CH 29.4 27.0-33.0 - pg * M CHC 33.0 32.0-36.0 - g/dL * R DW 12.9 11.0-15.0 - % * P LATELET COUNT 311 140-400 - Thousand/u L * N EUTROPHILS 50.1 - % * A BSOLUTE NEUTROPHILS 3106 1217-5532 - cells/uL * L YMPHOCYTES 34.7 - % * A BSOLUTE LYMPHOCYTES 2151 850-3900 - cells/uL * M ONOCYTES 8.3 - % * A BSOLUTE MONOCYTES 515 200-950 - cells/uL * E OSINOPHILS 5.8 - % * A BSOLUTE EOSINOPHILS 360 15-500 - cells/uL * B ASOPHILS 1.1 - % * A BSOLUTE BASOPHILS 68 0-200 - cells/uL * M PV 10.3 7.5-12.5 - fL * Vicenta Ortega 02/12/2025 12: 10:30 PM EDT > pt informedThis lab was reviewed by Vicenta Ortega on 02/12/2025 at 12:10 PM EDT ?LAB: HEMOGLOBIN A1c (496)* Value Reference Range H EMOGLOBIN A1c 6.6 H <5.7 - % * Vicenta Ortega 02/12/2025 12: 10:30 PM EDT > pt informedThis lab was reviewed by Vicenta Ortega on 02/12/2025 at 12:10 PM EDT ?LAB: TSH W/REFLEX TO FT4 (79716)* Value Reference Range T SH W/REFLEX TO FT4 1.19 0.40-4.50 - mIU/L * Vicenta Ortega 02/12/2025 12: 10:30 PM EDT > pt informedThis lab was reviewed by Vicenta Ortega on 02/12/2025 at 12:10 PM EDT Clinical Notes: continue replacement??4.?Nonalcoholic steatohepatitis (FULLER)?LAB: LIPID PANEL, STANDARD (0930)* Value Reference Range T RIGLYCERIDES 97 <150 - mg/dL * C HOLESTEROL, TOTAL 119 <200 - mg/dL * H DL CHOLESTEROL 53 > OR = 50 - mg/dL * L DL-CHOLESTEROL 48 - mg/dL (calc) * C HOL/HDLC RATIO 2.2 <5.0 - (calc) * N ON HDL CHOLESTEROL 66 <130 - mg/dL (calc) * Vicenta Ortega 02/12/2025 12: 10:30 PM EDT > pt informedThis lab was reviewed by Vicenta Ortega on 02/12/2025 at 12:10 PM EDT ?LAB: COMPREHENSIVE METABOLIC PANEL (76065)* Value Reference Range G LUCOSE 98 65-99 - mg/dL * U LOCO NITROGEN (BUN) 26 H 7-25 - mg/dL * C REATININE 1.07 H 0.50-1.05 - mg/dL * B UN/CREATININE RATIO 24 H 6-22 - (calc) * S ODIUM 140 135-146 - mmol/L * P OTASSIUM 5.1 3.5-5.3 - mmol/L * C HLORIDE 104 98-110 - mmol/L * C ARBON DIOXIDE 25 20-32 - mmol/L * C ALCIUM 9.2 8.6-10.4 - mg/dL * P ROTEIN, TOTAL 6.8 6.1-8.1 - g/dL * A LBUMIN 3.9 3.6-5.1 - g/dL * G LOBULIN 2.9 1.9-3.7 - g/dL (calc ) * A LBUMIN/GLOBULIN RATIO 1.3 1.0-2.5 - (calc) * B ILIRUBIN, TOTAL 0.8 0.2-1.2 - mg/dL * A LKALINE PHOSPHATASE 91 37-153 - U/L * A ST 18 10-35 - U/L * A LT 16 6-29 - U/L * E GFR 58 L > OR = 60 - mL/min/1 .73m2 * Vicenta Ortega 02/12/2025 12: 10:30 PM EDT > pt informedThis lab was reviewed by Vicenta Ortega on 02/12/2025 at 12:10 PM EDT ?LAB: CBC (INCLUDES DIFF/PLT) (9810)* Value Reference Range W MICHEAL BLOOD CELL COUNT 6.2 3.8-10.8 - Thousan d/uL * R ED BLOOD CELL COUNT 5.24 H 3.80-5.10 - Million/ uL * H EMOGLOBIN 15.4 11.7-15.5 - g/dL * H EMATOCRIT 46.6 H 35.0-45.0 - % * M CV 88.9 80.0-100.0 - fL * M CH 29.4 27.0-33.0 - pg * M CHC 33.0 32.0-36.0 - g/dL * R DW 12.9 11.0-15.0 - % * P LATELET COUNT 311 140-400 - Thousand/u L * N EUTROPHILS 50.1 - % * A BSOLUTE NEUTROPHILS 3106 6077-1850 - cells/uL * L YMPHOCYTES 34.7 - % * A BSOLUTE LYMPHOCYTES 2151 850-3900 - cells/uL * M ONOCYTES 8.3 - % * A BSOLUTE MONOCYTES 515 200-950 - cells/uL * E OSINOPHILS 5.8 - % * A BSOLUTE EOSINOPHILS 360 15-500 - cells/uL * B ASOPHILS 1.1 - % * A BSOLUTE BASOPHILS 68 0-200 - cells/uL * M PV 10.3 7.5-12.5 - fL * Vicenta Ortega 02/12/2025 12: 10:30 PM EDT > pt informedThis lab was reviewed by Vicenta Ortega on 02/12/2025 at 12:10 PM EDT ?LAB: HEMOGLOBIN A1c (496)* Value Reference Range H EMOGLOBIN A1c 6.6 H <5.7 - % * Vicenta Ortega 02/12/2025 12: 10:30 PM EDT > pt informedThis lab was reviewed by Vicenta Ortega on 02/12/2025 at 12:10 PM EDT ?LAB: TSH W/REFLEX TO FT4 (67353)* Value Reference Range T SH W/REFLEX TO FT4 1.19 0.40-4.50 - mIU/L * Vicenta Ortega 02/12/2025 12: 10:30 PM EDT > pt informedThis lab was reviewed by Vicenta Ortega on 02/12/2025 at 12:10 PM EDT Clinical Notes: continue dietary and weight loss efforts??5.?RLS (restless legs syndrome)? Clinical Notes: low dose gabapentin??6.?Yeast dermatitis? Start Nystop Powder, 333127 UNIT/GM, 1 application, Externally, Twice a day, 10 days, 1, Refills 2. ? * Procedure Codes: 8 2043 MICROALBUMIN, URINE, Modifiers: QW * Follow Up: 3 Months * * Sign off status: Completed true * Provider: COBY Busby Date: Generated for Tomasa alarcon/Christian/Bekaitting on: 06/04/2024 09:26 AM EST History and Physical Notes * Examination Category Sub-Category Detail Notes Category Not es General Examination Heart: Regular Rate and Rhythm, no murmur, rubs or gallops Lungs: clear to auscultatio n, Abdomen: Soft, NTND, BSNA, No organomegaly or peritoneal signs. Extremities: varicose veins bilat lower extremities and bilat lymphedematous changes but no warmth or ulcerations Skin: mild erythema in the skin folds of the abdomen but no rash otherwise Oral cavity: Moist membranes Peripheral pulses: diminished, bilatera lly symetrical. 1+ pp neck supple,, no thyromeg marsha,, no lymphadenopathy, General Pleasant and [place] tive, NAD on RA, Psych Normal Mood/Affect diabetic foot exam Visual exam of foot performed :: Yes
--- NOTE | 2025-04-03 09:20 | MM_ITS ---
PROCEDURE INFORMATION: Exam: MG Bilateral Screening 3D Mammography Exam date and time: 04/03/2025 9:34 AM Age: 64 years old Clinical indication: Screening mammogram TECHNIQUE: Imaging protocol: Bilateral Screening tomosynthesis and 2D mammography including computer-aided detection (CAD) when performed. COMPARISON: 1. MG MM DIG SCREENING MAMM BI W/CAD 04/01/2024 3:55 PM 2. MG MM DIG SCREENING MAMM BI W/CAD 02/20/2023 1:06 PM FINDINGS: MAMMOGRAPHY: Breast composition: There are scattered areas of fibroglandular density. Mass: None. Architectural distortion: No new or suspicious architectural distortion. Calcifications: Stable benign-appearing calcifications are present. No new or suspicious cluster of microcalcifications have developed. Asymmetric density: No new or suspicious asymmetric density is present Skin thickening: None. Axillary adenopathy: None. IMPRESSION: No mammographic evidence of malignancy. Recommend annual screening mammography unless otherwise clinically indicated. ASSESSMENT: BI-RADS category 2: Benign.
--- NOTE | 2025-04-03 09:20 | XR_ITS ---
FINAL REPORT CLINICAL HISTORY: SCREENING FINDINGS: Using L1-4, the bone mineral density of the spine is 0.928 g/cm2, corresponding to T-score of -1.1 and a Z-score of 0.6. The bone mineral density change versus baseline is 10.4%. Using the left hip, the bone mineral density of the femoral neck is 0.775 g/cm2, corresponding to a T-score of -1.4, with a Z-score of -0.2. The bone mineral density change versus baseline is 4.3%. Using the right hip, the bone mineral density of the femoral neck is 0.619 g/cm2, corresponding to a T-score of -2.1 with a Z-score of -0.6. The bone mineral density change versus baseline is 0.9%. NOTE: T-score: Standard deviation compared with peak bone mass of young adult mean. *Following the recommendations of the International Society of Bone densitometry, classification of hip BMD is based on the lower of two T-scores; total hip or femoral neck. IMPRESSION: Diminished bone mineral density of the lumbar spine and the bilateral hips consistent with osteopenia. Reviewed, Interpreted and Dictated by Alona Aguilar MD Transcribed by Holly Echavarria Authenticated and [facility]
--- OUTSIDE RECORDS SUMMARY | 2025-04-03 09:26 | XMS_ITS | Encounter Summary ---
Author Organization [employer] ([place], [place], [place], [place], [place]) Address [address] [place] [address] Care Team Providers Care Remediation Technician Name Role Phone Unavailable Primary Care Provider Unavailabl e Encounter Details Date Type Department Care Team (Late st Contact Info) Description 10/09/2020 Transcribed Document [facility] [place] Family Medicine [address] [place] [address] ProviderRadha MD [address], [place] [...] JO-ANN Duron PTA - 10/09/2020 16:24 EDT Electronically signed by Angela [facility] Conversion Assembly Stock Supervisor Cerner at 08/02/2022 6:21 PM CDT documented in this encounter Plan of Treatment Not on file documented as of this encounter Visit Diagnoses Not on filedocumented in this encounter
--- OUTSIDE RECORDS SUMMARY | 2025-04-03 09:26 | XMS_ITS | Encounter Summary ---
Author Organization [employer] ([place], [place], [place], [place], [place]) Address [address] [place] [address] Care Team Providers Care Certified Master Locksmith Name Role Phone Unavailable Primary Care Provider Unavailabl e Encounter Details Date Type Department Care Team (Late st Contact Info) Description 10/09/2020 Transcribed Document [facility] [place] Family Medicine [address] [place] [address] ProviderRadha MD [address] [place] [address] Social History Tobacco Use Types [...] EDT Electronically signed by Galen Miller Conversion Edge Banding Machine Offbearer Cerner at 08/02/2022 6:23 PM CDT documented in this encounter Plan of Treatment Not on file documented as of this encounter Visit Diagnoses Not on filedocumented in this encounter
--- OUTSIDE RECORDS SUMMARY | 2025-04-03 09:26 | XMS_ITS | Encounter Summary ---
Author Organization [employer] ([place], [place], [place], [place], [place]) Address [address] [place] [address] Care Team Providers Care Magician Helper Name Role Phone Unavailable Primary Care Provider Unavailabl e Encounter Details Date Type Department Care Team (Late st Contact Info) Description 10/01/2020 Transcribed Document [facility] [place] Family Medicine [address] [place] [address] ProviderRadha MD [address] [place] [address] Social History Tobacco Use Types [...] Rapid Response Event Location Type : Other: [facility] Room 425 JONATHAN MADDOX RN - 10/01/2020 1:57 EDT Rapid Response Team Initiation Reason Details : Onset of hypotension. Cause not obvious at this time. Extreme edema noted. Mentation intact. UOP 100 ml / 6 hrs. contacted by primary RN and albumin and [...] change in location/level of care Rapid Response Magician Helper #1 : JONATHAN MADDOX RN Rapid Response Magician Helper #2 : FLORENCE ARIZA CRT LACY, ROBERT J, RN - 10/01/2020 1:57 EDT Rapid Response Systems Assessment Oxygen Saturation : 96 % Breath Sounds Auscultated : Anterior, Laterally All Lobes Breath Sounds : Diminished Cardiovascular Symptoms : None Heart Sounds : S1/S2, Distant Heart Rhythm : Regular Neck Vein Distention : Unable to visualize Brii Best Motor Response : Obey commands Switchback Best Verbal Response : Oriented Switchback Eye Opening Response : Spontaneous Switchback Coma Score : 15 Level of Consciousness [...]
--- OUTSIDE RECORDS SUMMARY | 2025-04-03 09:26 | XMS_ITS | Encounter Summary ---
Author Organization [employer] ([place], [place], [place], [place], [place]) Address [address] [place] [address] Care Team Providers Care Nursing Consultant Name Role Phone Unavailable Primary Care Provider Unavailabl e Encounter Details Date Type Department Care Team (Late st Contact Info) Description 10/01/2020 Transcribed Document [facility] [place] Family Medicine [address] [place] [address] ProviderRadha MD [address] [place] [address] Social History Tobacco Use Types [...] pedal edema. No cyanosis. Peripheral pulses palpable. MARINE ERECTOR: No focal deficit noted grossly. Cranial nerves [...] - Medical Enoxaparin 40 mg, SubCutaneous, Inj, [id number], Routine, Start 09/30/20 12:00:00 EDT, 09/30/20 11:44:00 [...] Daily Lovenox, 40 mg= 0.4 mL, SubCutaneous, [id number] magnesium sulfate, 2 Gram= 50 mL, IV [...] 284 mOsm/kg 10/01/2020 05:49 EDT Protein Ur [place] 112 mg/dL 10/01/2020 05:49 EDT Sodium Ur [place] 18 mMole/Liter 10/01/2020 05:49 EDT Urea Nitrogen Urine Random 390 mg/dL 10/01/2020 05:49 EDT CK 55 Units/Liter 09/30/2020 13:13 EDT Urine Type U Cath 10/01/2020 05:49 EDT Urine Color RED2 10/01/2020 05:49 EDT Urine Appearance TURBID2 (Abnormal) 10/01/2020 05:49 EDT Urine Specific [place] 1.015 10/01/2020 05:49 EDT Urine pH Dipstick [...]
--- OUTSIDE RECORDS SUMMARY | 2025-04-03 09:26 | XMS_ITS | Encounter Summary ---
Author Organization [employer] ([place], [place], [place], [place], [place]) Address [address] [place] [address] Care Team Providers Care Cardiac Cath Technician Name Role Phone Unavailable Primary Care Provider Unavailabl e Encounter Details Date Type Department Care Team (Late st Contact Info) Description 10/09/2020 Transcribed Document [facility] [place] Family Medicine [address] [place] [address] ProviderRadha MD [address] [place] [address] Social History Tobacco Use Types [...]
--- OUTSIDE RECORDS SUMMARY | 2025-04-03 09:26 | XMS_ITS | Encounter Summary ---
Author Organization [employer] ([place], [place], [place], [place], [place]) Address [address] [place] [address] Care Team Providers Care Concrete Finishing Machine Operator Name Role Phone Unavailable Primary Care Provider Derrell rose Encounter Details Date Type Department Care Team (Late st Contact Info) Description 10/09/[address] [facility] [place] Family Medicine [address] [place] [address] ProviderRadha MD [address] [place] [address] Social History Tobacco Use Types [...] mg, Oral, Daily Lovenox: 40 mg, SubCutaneous, [id number] MiraLax: 17 Gram, Oral, Daily, PRN: Constipation [...] History of obstructive sleep apnea / IMO [id number] / Confirmed, Active Problems (6) Diabetes mellitus GERD (gastroesophageal reflux disease) History of obstructive sleep apnea HLD (hyperlipidemia) Hypothyroidism Morbid obesity Physical Examination VS/Measurements Vitals Signs (last 24 hrs) Last Charted Minimum Maximum Temp 98.4 (CLAUDIA 25 11:05) 97.9 (CLAUDIA 24 17:37) 98.2 (CLAUDIA 24 14:45) Mon HR 92 (CLAUDIA 25 11:05) 83 (CLAUDIA 24 14:45) 94 (CLAUDIA 25 03:07) Resp Rate 20 (CLAUDIA 25 05:46) 16 (CLAUDIA 24 14:45) 20 (SEP 25 05:46) SBP 138 (CLAUDIA 25 11:05) 95 (CLAUDIA 25 05:46) 138 (CLAUDIA 25 11:05) DBP 80 (CLAUDIA 25 11:05) L 58 (SEP 25 05:46) 80 (CLAUDIA 25 11:05) MAP 95 (CLAUDIA 25 11:05) 71 (CLAUDIA 25 03:07) 95 (CLAUDIA 25 11:05) SpO2 94 (SEP 25 05:46) 94 (SEP 25 03:07) 99 (CLAUDIA [...] 24) L 8.1 (CLAUDIA 23) L 8.3 (LCAUDIA 22) Lactic C 5.3 (CLAUDIA 16) C [...] pt remains grossly volume overloaded; bumex initiated / Hypoalbuminemia with anasarca: Had 24 hour urine [...]
--- OUTSIDE RECORDS SUMMARY | 2025-04-03 09:26 | XMS_ITS | Encounter Summary ---
Author Organization [employer] ([place], [place], [place], [place], [place]) Address [address] [place] [address] Care Team Providers Care Buckle Gluer Name Role Phone Unavailable Primary Care Provider Unavailabl e Encounter Details Date Type Department Care Team (Late st Contact Info) Description 10/09/2020 Transcribed Document [facility] [place] Family Medicine [address] [place] [address] ProviderRadha MD [address] [place] [address] Social History Tobacco Use Types [...] Historical ProviderMD - 10/09/2020 2:00 AM CDT Stamping Die Maker Details Entered On: 10/09/2020 1:08 EDT Performed [...]
--- OUTSIDE RECORDS SUMMARY | 2025-04-03 09:26 | XMS_ITS | Encounter Summary ---
Author Organization [employer] ([place], [place], [place], [place], [place]) Address [address] [place] [address] Care Team Providers Care Bleach Packer Name Role Phone Unavailable Primary Care Provider Derrell e Encounter Details Date Type Department Care Team (Late st Contact Info) Description 10/01/2020 Transcribed Document [facility] [place] [address] [place] [address] ProviderRadha MD [address] [place] [address] Social History Tobacco Use Types [...] - 10/01/2020 1:17 PM CDT Patient: LUH GLASS Age: 59 [...] mg, Oral, Daily Lovenox: 40 mg, SubCutaneous, [id number] MiraLax: 17 Gram, Oral, Daily, PRN: Constipation NORepinephrine injection 8 mg + NaCl 0.9% for drip 250 mL: Titrate, IntraVENous Phenergan: 6.25 mg, IntraVENous, Q6H, PRN: Nausea Rocephin: 1 Gram, 100 mL/Hr, IV Piggyback, [id number] Roxicodone: 5 mg, Oral, Q4H, PRN: Pain [...] History of obstructive sleep apnea / IMO [id number] / Confirmed, Active Problems (1) History of [...] echo ok cct 33mins Electronically signed by Interface, [facility] Conversion Supervisor Leaf Spring Repair Cerner at 08/02/2022 6:10 PM CDT documented in this encounter Plan of Treatment Not on file documented as of this encounter Visit Diagnoses Not on filedocumented in this encounter
--- OUTSIDE RECORDS SUMMARY | 2025-04-03 09:26 | XMS_ITS | Encounter Summary ---
Author Organization [employer] ([place], [place], [place], [place], [place]) Address [address] [place] [address] Care Team Providers Care Product Developer Name Role Phone Unavailable Primary Care Provider Unavailabl e Encounter Details Date Type Department Care Team (Late st Contact Info) Description 10/01/2020 Transcribed Document [facility] [place] [address] [place] [address] ProviderRadha MD [address] [place] [address] Social History Tobacco Use Types [...] and on HOLD for PT today per nsg-Alyse JR DILLON, PT - 10/01/2020 12:30 EDT documented in this encounter Plan of Treatment Not on file documented as of this encounter Visit Diagnoses Not on filedocumented in this encounter
--- OUTSIDE RECORDS SUMMARY | 2025-04-03 09:26 | XMS_ITS | Encounter Summary ---
Author Organization [employer] ([place], [place], [place], [place], [place]) Address [address] [place] [address] Care Team Providers Care Shipyard Painting Supervisor Name Role Phone Unavailable Primary Care Provider Unavailabl e Encounter Details Date Type Department Care Team (Late st Contact Info) Description 10/01/2020 Transcribed Document [facility] [place] Family Medicine [address] [place] [address] ProviderRadha MD [address] [place] [address] Social History Tobacco Use Types Packs/Day Years Used Date Smoking Tobacco: Never Assessed Comments Unknown Sex and Gender Information Value Date Recorded Sex Assigned at Not on file Legal Sex Female 7:21 PM CDT Gender Identity Not on file Sexual Orientation Not on file documented as of this encounter Miscellaneous Notes * Cerner Conversion Note - Radha Reed MD - 10/01/2020 2:29 PM CDT On Going Discharge Planning Entered On: 10/01/2020 14:32 EDT Performed On: 10/01/2020 14:29 EDT by KAROLINA PLEITEZ Rn-Heavy Equipment SupervisorCharge Entry Specialist Progress Note Discharge Arrangements : Patient Post-Acute [...] : Clinical Condition of Patient KAROLINA PLEITEZ Rn-Heavy Equipment Supervisor - 10/01/2020 14:29 EDT Narrative Progress Note Narrative Progress Note : HD#1; ELOS 3; MRR; BOOST 7 - Transfer from [facility] for Generalized Edema; Nephrology consult; LF=294; RA; Doxycycline/Rocephin; met w/pt's adult children Leslie Lenka and Kishore Bosch ([phone]) who states DCP will be return to [facility] for ongoing rehab; explained pt will require a precert; updates clinicals sent to [facility] and voicemail left for intake [phone]; [phone]. KAROLINA PLEITEZ, Rn-Heavy Equipment Supervisor - 10/01/2020 14:29 EDT documented in this encounter Plan of Treatment Not on file documented as of this encounter Visit Diagnoses Not on filedocumented in this encounter
--- OUTSIDE RECORDS SUMMARY | 2025-04-03 09:27 | XMS_ITS | Encounter Summary ---
Author Organization [employer] ([place], [place], [place], [place], [place]) Address [address] [place] [address] Care Team Providers Care Kiln Maintenance Name Role Phone Unavailable Primary Care Provider Unavailabl e Encounter Details Date Type Department Care Team (Late st Contact Info) Description 10/01/2020 Transcribed Document [facility] [place] Family Medicine [address] [place] [address] ProviderRadha MD [address] [place] [address] Social History Tobacco Use Types [...] #2 Relationship : son Primary Language : Kyrgyz Communication Barrier : None Cycle Analyst Needed : No Alyse Sanchez RN - [...] Scale Risk Level : 25-45 Medium Risk [place] Fall Interventions : Adequate lighting, Bed in [...] Source : Stated Height Entry Format : Clay Height, Feet : 5 ft(Converted to: 152 cm, 60 Inch) Height, Inches : 2 Inch(Converted to: 0 ft 2 Inch, 5.08 cm) Clinical Height : 157.48 cm Weight Source : Standing scale Weight Entry Format : Clay Clinical Dosing Weight : 157.27 kg Weight, Pounds : 346 lb Body Surface Area (BSA) : 2.42 m2 Body Mass Index : 63.4 kg/m2 (>HHI) [place] Body Weight : 50 kg Alyse Sanchez [...] Alyse Sanchez RN - 10/01/2020 16:15 EDT [place] Suicide Severity Rating Scale (C-SSRS) CSSRS Past [...] 10/01/2020 16:15 EDT Electronically signed by Angela [facility] Conversion Audit Tech Cerner at 08/02/2022 6:22 PM CDT documented in this encounter Plan of Treatment Not on file documented as of this encounter Visit Diagnoses Not on filedocumented in this encounter
--- OUTSIDE RECORDS SUMMARY | 2025-04-03 09:27 | XMS_ITS | Encounter Summary ---
Author Organization [employer] ([place], [place], [place], [place], [place]) Address [address] [place] [address] Care Team Providers Care Network Design Architect Name Role Phone Unavailable Primary Care Provider Unavailabl e Encounter Details Date Type Department Care Team (Late st Contact Info) Description 10/13/2020 Transcribed Document [facility] [place] Family Medicine [address] [place] [address] ProviderRadha MD [address] [place] [address] Social History Tobacco Use Types [...] On: 10/13/2020 8:47 EDT by PADMA GOMEZ, Center Medical Specialist-Rn Case Mgr Final Discharge Planning Is Patient High/Moderate Readmission Risk? : Yes Patient/Family Notified of Plan : Yes Support Person/Pt Rep Notified of Plan : Yes Is Patient Ready for Discharge? : Yes Physician Notified Patient is Ready for Discharge? : Yes Discharge To Care Management : SNF with Medicare Certification-03 PADMA GOMEZ, Center Medical Specialist-Rn Case Mgr - 10/13/2020 8:49 EDT Discharge Arrangements : [...] Up Appointment Scheduled : No PADMA GOMEZ, Center Medical Specialist-Rn Case Mgr - 10/13/2020 8:47 EDT Final Narrative Note Final Narrative Note : Patient is a moderate readmission risk. Patient is discharging to [facility] today at 11 by [facility]. Patient stated that her family is aware. No other needs identified. PADMA GOMEZ, Center Medical Specialist-Rn Case Mgr - 10/13/2020 8:49 EDT documented in this encounter Plan of Treatment Not on file documented as of this encounter Visit Diagnoses Not on filedocumented in this encounter
--- OUTSIDE RECORDS SUMMARY | 2025-04-03 09:27 | XMS_ITS | Encounter Summary ---
Author Organization [employer] ([place], [place], [place], [place], [place]) Address [address] [place] [address] Care Team Providers Care Explosive Ordnance Handler Name Role Phone Unavailable Primary Care Provider Unavailabl e Encounter Details Date Type Department Care Team (Late st Contact Info) Description 10/09/2020 Transcribed Document [facility] [place] Family Medicine [address] [place] [address] ProviderRadha MD [address] [place] [address] Social History Tobacco Use Types [...] Function : Bowel Function [facility] [address]OTT[address], LD - 10/09/2020 12:37 EDT Nutrition Recommendations Dietitian [...]
--- OUTSIDE RECORDS SUMMARY | 2025-04-03 09:27 | XMS_ITS | Encounter Summary ---
Author Organization [employer] ([place], [place], [place], [place], [place]) Address [address] [place] [address] Care Team Providers Care V Groove Cutter Name Role Phone Unavailable Primary Care Provider Unavailabl e Encounter Details Date Type Department Care Team (Late st Contact Info) Description 10/01/2020 Transcribed Document [facility] [place] [address] [place] [address] ProviderRadha MD [address] [place], [...] Alyse Sanchez RN - 10/01/2020 18:07 EDT documented in this encounter Plan of Treatment Not on file documented as of this encounter Visit Diagnoses Not on filedocumented in this encounter
--- OUTSIDE RECORDS SUMMARY | 2025-04-03 09:27 | XMS_ITS | Encounter Summary ---
Author Organization [employer] ([place], [place], [place], [place], [place]) Address [address] [place] [address] Care Team Providers Care Insurance Billing Clerk Name Role Phone Unavailable Primary Care Provider Unavailabl e Encounter Details Date Type Department Care Team (Late st Contact Info) Description 10/13/2020 Transcribed Document [facility] [place] [address] [place] [address] ProviderRadha MD [address] [place] [address] Social History Tobacco Use Types [...] provider. Document Revised: 07/25/2019 Document Reviewed: 12/06/2017 [employer] Patient Education ? 2020 [employer]. Nutrition Low-Sodium Eating Plan Sodium, which is [...] (monosodium glutamate). MSG is sometimes added to Irish food, bouillon, and some canned foods. What [...] Vegetables Sauerkraut, pickled vegetables, and relishes. Olives. Nepali fries. Onion rings. Regular canned vegetables (not [...] salad dressings. Salsa. Potato and tortilla chips. [place] chips and puffs. Salted popcorn and pretzels. [...] provider. Document Revised: 03/16/2018 Document Reviewed: 03/27/2017 [employer] Patient Education ? 2020 [employer]. Obstetrics and Gynecology Edema Edema is an [...] fluid you drink (fluid restriction). ??? Take rwqn-byk-wkhpezx and prescription medicines only as told by [...] provider. Document Revised: 08/21/2019 Document Reviewed: 05/06/2017 [employer] Patient Education ? 2019 [employer] documented in this encounter Plan of Treatment Not on file documented as of this encounter Visit Diagnoses Not on filedocumented in this encounter
--- OUTSIDE RECORDS SUMMARY | 2025-04-03 09:27 | XMS_ITS | Encounter Summary ---
Author Organization [employer] ([place], [place], [place], [place], [place]) Address [address] [place] [address] Care Team Providers Care Lye Treater Name Role Phone Unavailable Primary Care Provider Unavailabl e Encounter Details Date Type Department Care Team (Late st Contact Info) Description 10/13/2020 Transcribed Document [facility] [place] Family Medicine [address] [place] [address] ProviderRadha MD [address] [place] [address] Social History Tobacco Use Types [...] : 1960 Associated Diagnoses: None Author: SAMANTHA GREER DO Results Review Admission Date: Admit Date 09/30/2020 13:11 Discharge Date: 10/13/2020 Discharge Information discharge to [facility] Physical Examination VS/Measurements Vitals Signs [...] Results (Current Encounter/Past 24 Hours) Bun/Creatinine 67.5 [place] 10/12/2020 09:09 eGFR >60 mL/min/1.73m2 10/12/2020 09:09 eGFR NonAfrican >60 mL/min/1.73m2 10/12/2020 09:09 Creatinine Level 0.40 mg/dL LOW 10/12/2020 09:09 Sodium Level 141 mmol/L 10/12/2020 09:09 Potassium Level 3.6 mmol/L 10/12/2020 09:09 Chloride Level 103 mmol/L 10/12/2020 09:09 Carbon Dioxide Level 29 mmol/L 10/12/2020 09:09 Anion Gap 13 10/12/2020 09:09 Blood Urea Nitrogen 27 mg/dL [place] 10/12/2020 09:09 Glucose Level 88 mg/dL 10/12/2020 [...] of gross fluid overload was transferred to [facility] from [facility] with hyponatremia. The patient story is that on 07/25, she weighed 230 pounds, with a history of having some mild lower extremity edema. She reports she gained approximately 100 pounds of water weight in 3 days on 07/28. She was hospitalized at [facility], was intermittently hypotensive and having lower extremity weakness. She improved and was discharged back to [facility], where for the past 2 weeks [...] dose bumex. [facility] Discharge Follow Up Follow up [...]
--- OUTSIDE RECORDS SUMMARY | 2025-04-03 09:27 | XMS_ITS | Encounter Summary ---
Author Organization [employer] ([place], [place], [place], [place], [place]) Address [address] [place] [address] Care Team Providers Care Grocery Store Bagger Name Role Phone Unavailable Primary Care Provider Unavailabl e Encounter Details Date Type Department Care Team (Late st Contact Info) Description 10/01/2020 Transcribed Document [facility] [place] [address] [place] [address] ProviderRadha MD [address] [place] [address] Social History Tobacco Use Types [...]
--- OUTSIDE RECORDS SUMMARY | 2025-04-03 09:28 | XMS_ITS | Encounter Summary ---
Author Organization [employer] ([place], [place], [place], [place], [place]) Address [address] [place] [address] Care Team Providers Care Manager Scientific Name Role Phone Unavailable Primary Care Provider Unavailabl e Encounter Details Date Type Department Care Team (Late st Contact Info) Description 10/04/[address] [facility] Radiology [address] [place] [address] Malu Pemberton MD [address] [place] [address] [address] Social History Tobacco Use Types Packs/Day Years [...] 131 (OCT 04:) DBP L 57 (OCT 04:) L 46 (OCT 04 04:00) 73 (OCT 04:) MAP 71 (OCT 04:) 61 (OCT 04 04:10) 96 (OCT 04:) SpO2 96 (OCT [...] DVT prophylaxis: on lovenox Disposition:Hold diuretics/added albumin/stop abx/nfef removal for purewic/replace lytes Discussed with patient, and nursing. PT as tolerated Time spent with above 28 minutes documented in this encounter Plan of Treatment Not on file documented as of this encounter Visit Diagnoses Not on filedocumented in this encounter
--- OUTSIDE RECORDS SUMMARY | 2025-04-03 09:28 | XMS_ITS | Encounter Summary ---
Author Organization [employer] ([place], [place], [place], [place], [place]) Address [address] [place] [address] Care Team Providers Care Seed Laboratory Technician Name Role Phone Unavailable Primary Care Provider Unavailabl e Encounter Details Date Type Department Care Team (Late st Contact Info) Description 10/04/2020 Transcribed Document [facility] [place] Family Medicine [address] [place] [address] ProviderRadha MD [address] [place] [address] Social History Tobacco Use Types [...] Historical ProviderMD - 10/04/2020 2:00 AM CDT Power Lineman Technician Details Entered On: 10/04/2020 2:14 EDT Performed [...]
--- OUTSIDE RECORDS SUMMARY | 2025-04-03 09:28 | XMS_ITS | Encounter Summary ---
Author Organization [employer] ([place], [place], [place], [place], [place]) Address [address] [place] [address] Care Team Providers Care Assembly Machine Tool Setter Name Role Phone Unavailable Primary Care Provider Unavailabl e Encounter Details Date Type Department Care Team (Late st Contact Info) Description 10/08/[address] [facility] [place] [address] [place] [address] ProviderRadha MD [address] [place] [address] Social History Tobacco Use Types [...] On: 10/08/2020 17:54 EDT by LIAM COWAN Rn-Fitter ArmamentCounter Supply Worker Progress Note Discharge Arrangements : Patient Post-Acute Information Patient Name: LUH BOSCH Gender: Female : [birth year] Age: 59 Years No Post-Acute Placement(s) Listed No Post-Acute Service(s) Listed No Curaspan Referral(s) Listed Discharge Options Discussed with Patient : Acute rehabilitation, Discharge transportation, DME, Home Health, Short term rehabilitation Barriers to Discharge Identified : Clinical Condition of Patient, Follow-Up appointments needed, No intermediate bed available Barriers to Discharge Unresolved : Clinical Condition of Patient, No intermediate bed available Is the Patient Meeting Medical Necessity : No Did you Document Avoidable Days? : Yes Did you Attend Multidisciplinary Rounds? : Yes LIAM COWAN, Rn-Fitter Armament - 10/08/2020 17:54 EDT Narrative Progress Note Narrative Progress Note : WALLYOS 3, hospital day 8, RRS 59, she needs a mcfp care skilled bed, referrals sent to Radha mcarthur with [facility] assessing for bariatric bed at [facility] or [facility] Historical Progress Note : Received call from [facility] [phone] advising CM their facility is unable to meet pt's needs - r/t C-Diff; weight - non-ambulatory w/ bed activity; pt on transfer to [facility] - notified CM. KAROLINA PLEITEZ Rn-Fitter Armament - 10/07/20 11:01:00 HD#6; ELOS 3; MRR; BOOST 7 - GenEdema/Anasarca; received voice mail from [facility] - DON requesting additional clinical information - faxed this am; awaiting return call to confirm precert has been initiated. KAROLINA PLEITEZ Rn-Fitter Armament - 10/07/20 07:45:25 Dr. Pemberton tells CM pt is ready to transition and is appropriate for precert to be initiated with short-term rehab; spoke with pt and she is in agreement to go to [facility]. Contacted [facility] and she will initiate the precert and confirm with Dr. Whittaker. KAROLINA PLEITEZ Rn-Fitter Armament - 10/06/20 13:57:22 HD#5; ELOS 3; MRR; BOOST 7 - Generalized Edema/Anasarca = 02/2L; Vancomycin/Midodrine; declined to stand w/therapy - will need rehab r/t ongoing weakness; discussion w/pt's family about need for rehab - possible long-term placement if unable to progress; [facility] interested to discuss with MD; [facility] unable to meet pt's needs; continue to follow. KAROLINA PLEITEZ Rn-Fitter Armament - 10/06/20 08:58:40 Received call from pt's daughter Leslie Og and she requested referrals be sent to [facility] in [place], [place] ([facility]) and [facility] in [place], [place] ([employer]). KAROLINA PLEITEZ Rn-Fitter Armament - 10/05/20 15:28:00 HD#4; ELOS 3; MRR; BOOST 7 - GenEdema/Hypernatremia/Anasarca - 02=2L; B/P 105/58; PO Vancomycin; Midodrine 10 mg TID; lytes to be replaced; Nephrology has signed off; pt MaxAx2 w/therapy; updates sent thru [facility] to [facility] and left another message for f/u to confirm pt may return and anticipated turn around time for precert; DCP return for rehab; will likely require ambulance for transport; pt on transfer out of [facility]. KAROLINA PLEITEZ Rn-Fitter Armament - 10/05/20 13:37:58 HD#4; ELOS 3; MRR; BOOST 7 - GenEdema/Hypernatremia/Anasarca - 02=2L; B/P 105/58; PO Vancomycin; Midodrine 10 mg TID; lytes to be replaced; Nephrology has signed off; pt MaxAx2 w/therapy; updates [facility] to [facility] and left another message for f/u to [...] ; initial ref[facility] [place] [facility] [place] [facility]. KAROLINA PLEITEZ, Rn-Fitter Armament - 10/05/20 13:54:46 HD#1; ELOS 3; MRR; BOOST 7 - GenEdema/Hypernatremia/Anasarca - improving - 02=2L; Levo gtt; Midodrine; IV Bumex; Nephrology - 24 hr urine to eval for nephrotic syndrome; +CDiff; Rocephin/Doxy/Vanc; ltd work w/therapy - refusing OOB and knee/hip AROM; pt needs to be encouraged; DCP rehab - left message for [facility] [phone] to confirm receipt of referral; pt will need precert. KAROLINA PLEITEZ, Rn-Fitter Armament - 10/02/20 12:06:37 HD#1; ELOS 3; MRR; BOOST 7 - Transfer from [facility] for Generalized Edema; Nephrology consult; MR=[id number]; RA; Doxycycline/Rocephin; met w/pt's adult children Leslie Ashbytyler and Kishore Bosch ([phone]) who states DCP will be return to [place] for ongoing rehab; explained pt will require a precert; updates clinicals sent to [facility] and voicemail left for intake [phone]; [phone]. KAROLINA PLEITEZ Rn-Fitter Armament - 10/01/20 14:32:34 LIAM COWAN Rn-Fitter Armament - 10/08/2020 17:54 EDT documented in this encounter Plan of Treatment Not on file documented as of this encounter Visit Diagnoses Not on filedocumented in this encounter
--- OUTSIDE RECORDS SUMMARY | 2025-04-03 09:28 | XMS_ITS | Encounter Summary ---
Author Organization [employer] ([place], [place], [place], [place], [place]) Address [address] [place] [address] Care Team Providers Care Senior Director Of Global Commercial Technology Solutions Name Role Phone Unavailable Primary Care Provider Derrell rose Encounter Details Date Type Department Care Team (Late st Contact Info) Description 10/08/2020 Transcribed Document [facility] [place] [address] [place] [address] ProviderRadha MD [address] [place] [address] Social History Tobacco Use Types [...] - 10/08/2020 11:11 AM CDT Patient: LUH GLASS Age: 59 years Sex: Female : 1960 Associated Diagnoses: None Author: KIERSTEN COLEY DO Basic Information Date of encounter 10/08/20 Patient is awake and alert no complaints no nausea sitting up in bed, working on computer Health Status Allergies: Allergic Reactions (Selected) High [...] mg, Oral, Daily Lovenox: 40 mg, SubCutaneous, [id number] MiraLax: 17 Gram, Oral, Daily, PRN: Constipation [...] History of obstructive sleep apnea / IMO [id number] / Confirmed, Active Problems (6) Diabetes mellitus [...] 13:00) SBP 107 (OCT 08 05:53) 93 (SEP 23 15:00) H 149 (SEP 23 19:36) DBP 65 (OCT 08 05:53) L [...] 20) L 30.6 (CLAUDIA 19) L 28.2 (CLUADIA 18) Plt 300 (CLAUDIA 21) 315 (CLAUDIA [...] 28 (CLAUDIA 23) 27 (CLAUDIA 22) 28 (CLAUDIA 21) BUN H 29 (CLAUDIA 24) H 32 [...] 23) L 8.3 (CLAUDIA 22) L 8.1 (CLAUDIA 21) Lactic C 5.3 (CLAUDIA 16) C 5.7 [...] ALB L 1.6 (SEP 19) L 2.0 (CLAUDIA 18) L 1.0 [...] am Time spent with above 25 minutes Electronically signed by Angela [facility] Conversion Bisque Ware Dipper Cerner at 08/02/2022 6:10 PM CDT documented in this encounter Plan of Treatment Not on file documented as of this encounter Visit Diagnoses Not on filedocumented in this encounter
--- OUTSIDE RECORDS SUMMARY | 2025-04-03 09:28 | XMS_ITS | Encounter Summary ---
Author Organization [employer] ([place], [place], [place], [place], [place]) Address [address] [place] [address] Care Team Providers Care Assurance Senior Manager Name Role Phone Unavailable Primary Care Provider Unavailabl e Encounter Details Date Type Department Care Team (Late st Contact Info) Description 10/12/2020 Transcribed Document [facility] [place] Family Medicine [address] [place] [address] ProviderRadha MD [address] [place] [address] Social History Tobacco Use Types [...] Historical ProviderMD - 10/12/2020 2:00 AM CDT Brake Lining Maker Details Entered On: 10/12/2020 3:10 EDT Performed [...]
--- OUTSIDE RECORDS SUMMARY | 2025-04-03 09:28 | XMS_ITS | Encounter Summary ---
Author Organization [employer] ([place], [place], [place], [place], [place]) Address [address] [place] [address] Care Team Providers Care Drill Runner Helper Name Role Phone Unavailable Primary Care Provider Unavailabl e Encounter Details Date Type Department Care Team (Late st Contact Info) Description 10/11/2020 Transcribed Document [facility] [address] [place] [address] ProviderRdaha MD [address] [place] [address] Social History Tobacco Use Types [...] Historical ProviderMD - 10/11/2020 2:00 AM CDT Centerless Grinder Tender Details Entered On: 10/11/2020 2:35 EDT Performed [...]
--- OUTSIDE RECORDS SUMMARY | 2025-04-03 09:28 | XMS_ITS | Encounter Summary ---
Author Organization [employer] ([place], [place], [place], [place], [place]) Address [address] [place] [address] Care Team Providers Care Credentialer Name Role Phone Unavailable Primary Care Provider Unavailabl e Encounter Details Date Type Department Care Team (Late st Contact Info) Description 10/12/2020 Transcribed Document [facility] [place] Family Medicine [address] [place] [address] ProviderRadha MD [address] [place] [address] Social History Tobacco Use Types Packs/Day Years Used Date Smoking Tobacco: Never Assessed Comments Unknown Sex and Gender Information Value Date Recorded Sex Assigned at Not on file Legal Sex Female 7:21 PM CDT Gender Identity Not on file Sexual Orientation Not on file documented as of this encounter Miscellaneous Notes * Cerner Conversion Note - Radha Reed MD - 10/12/2020 4:21 PM CDT On Going Discharge Planning Entered On: 10/12/2020 16:22 EDT Performed On: 10/12/2020 16:21 EDT by BHARGAVI MEYER RN-Rigging ManCommunications Professional Progress Note Discharge Arrangements : Patient Post-Acute Information Patient Name: LUH BOSCH Gender: Female : 62 Age: 59 Years No Post-Acute Placement(s) Listed No Post-Acute Service(s) Listed No Curaspan Referral(s) Listed Discharge Options Discussed with Patient : Acute rehabilitation, Discharge transportation, DME, Home Health, Short term rehabilitation Barriers to Discharge Identified : No group home bed available Barriers to Discharge Unresolved : No group home bed available, Other: precert Patient Offered Choice/Affiliations Explained : Yes BHARGAVI MEYER RN-Rigging Man - 10/12/2020 16:21 EDT Narrative Progress Note Narrative Progress Note : precert approved for [facility] and ems arranged for 10/13@1100. attending and pt aware and agreed. per pt, left vm on dtr's line. mariama from [facility] updated. Historical Progress Note : ELOS 3, hospital day 912 RRS 59 [facility] updated per mariama. For hopeful precert initiated at [facility]. EMS arranged for 10/14@1100, trip # [id number]. Bariatric bed and bariatric stretcher requested at [facility] and ems. BHARGAVI MEYER RN-Rigging Man - 10/12/20 12:17:36 ELOS 3, hospital day 8, RRS 59, she needs a long term care social worker care skilled bed, referrals sent to Mariama mcarthur with [facility] assessing for bariatric bed at [facility] or [facility] LIAM COWAN Rn-Rigging Man - 10/08/20 17:55:50 Received call from [facility] [phone] advising CM their facility is unable to meet pt's needs - r/t C-Diff; weight - non-ambulatory w/ bed activity; pt on transfer to [facility] - notified CM. KAROLINA PLEITEZ Rn-Rigging Man - 10/07/20 11:01:00 HD#6; ELOS 3; MRR; BOOST 7 - GenEdema/Anasarca; received voice mail from [facility] - DON requesting additional clinical information - faxed this am; awaiting return call to confirm precert has been initiated. KAROLINA PLEITEZ Rn-Rigging Man - 10/07/20 07:45:25 Dr. Pemberton tells CM pt is ready to transition and is appropriate for precert to be initiated with short-term rehab; spoke with pt and she is in agreement to go to [facility]. Contacted [facility] and she will initiate the precert and confirm with Dr. Whittaker. KAROLINA PLEITEZ Rn-Rigging Man - 10/06/20 13:57:22 HD#5; ELOS 3; MRR; BOOST 7 - Generalized Edema/Anasarca = 02/2L; Vancomycin/Midodrine; declined to stand w/therapy - will need rehab r/t ongoing weakness; discussion w/pt's family about need for rehab - possible long-term placement if unable to progress; [facility] interested to discuss with [facility] unable to meet pt's needs; continue to follow. KAROLINA PLEITEZ, Rn-Rigging Man - 10/06/20 08:58:40 Received call from pt's daughter Leslie Og and she requested referrals be sent to [facility] in [place], [place] ([email or web address]) and [facility] in [place], [place] ([employer]). KAROLINA PLEITEZ Rn-Rigging Man - 10/05/20 15:28:00 HD#4; ELOS 3; MRR; BOOST 7 - GenEdema/Hypernatremia/Anasarca - 02=2L; B/P 105/58; PO Vancomycin; Midodrine 10 mg TID; lytes to be replaced; Nephrology has signed off; pt MaxAx2 w/therapy; updates sent thru [facility] to [facility] and left another message for f/u to confirm pt may return and anticipated turn around time for precert; DCP return for rehab; will likely require ambulance for transport; pt on transfer out of [facility]. KAROLINA PLEITEZ Rn-Rigging Man - 10/05/20 13:37:58 HD#4; ELOS 3; MRR; BOOST 7 - GenEdema/Hypernatremia/Anasarca - 02=2L; B/P 105/58; PO Vancomycin; Midodrine 10 mg TID; lytes to be replaced; Nephrology has signed off; pt MaxAx2 w/therapy; updates sent thru [facility] to [facility] and left another message for f/u to [...] ; initial referrals sent thru [facility] to [facility]. KAROLINA PLEITEZ Rn-Rigging Man - 10/05/20 13:54:46 HD#1; ELOS 3; MRR; BOOST 7 - GenEdema/Hypernatremia/Anasarca - improving - 02=2L; Levo gtt; Midodrine; IV Bumex; Nephrology - 24 hr urine to eval for nephrotic syndrome; +CDiff; Rocephin/Doxy/Vanc; ltd work w/therapy - refusing OOB and knee/hip AROM; pt needs to be encouraged; DCP rehab - left message for [facility] [phone] to confirm receipt of referral; pt will need precert. KAROLINA PLEITEZ, Rn-Rigging Man - 10/02/20 12:06:37 HD#1; ELOS 3; MRR; BOOST 7 - Transfer from [facility] for Generalized Edema; Nephrology consult; EZ=738; RA; Doxycycline/Rocephin; met w/pt's adult children Leslie Og and Kishore Bosch ([phone]) who states DCP will be return to [facility] for ongoing rehab; explained pt will require a precert; updates clinicals sent to [facility] and voicemail left for intake [phone]; [phone]. KAROLINA PLEITEZ Rn-Rigging Man - 10/01/20 14:32:34 BHARGAVI MEYER, SUSANA-Rigging Man - 10/12/2020 16:21 EDT documented in this encounter Plan of Treatment Not on file documented as of this encounter Visit Diagnoses Not on filedocumented in this encounter
--- OUTSIDE RECORDS SUMMARY | 2025-04-03 09:28 | XMS_ITS | Encounter Summary ---
Author Organization [employer] ([place], [place], [place], [place], [place]) Address [address] [place] [address] Care Team Providers Care Computational Linguist Name Role Phone Unavailable Primary Care Provider Unavailabl e Encounter Details Date Type Department Care Team (Late st Contact Info) Description 10/04/2020 Transcribed Document [facility] [place] [address] [place] [address] ProviderRadha MD [address] [place] [address] Social History Tobacco Use Types Packs/Day Years Used Date Smoking Tobacco: Never Assessed Comments Unknown Sex and Gender Information Value Date Recorded Sex Assigned at Not on file Legal Sex Female 7:21 PM CDT Gender Identity Not on file Sexual Orientation Not on file documented as of this encounter Miscellaneous Notes * Cerner Conversion Note - Historical ProviderMD - 10/04/2020 5:00 PM CDT Chart [...]
--- OUTSIDE RECORDS SUMMARY | 2025-04-03 09:28 | XMS_ITS | Encounter Summary ---
Author Organization [employer] ([place], [place], [place], [place], [place]) Address [address] [place] [address] Care Team Providers Care Nurses Medical Assistants Phlebotomists Name Role Phone Unavailable Primary Care Provider Unavailabl e Encounter Details Date Type Department Care Team (Late st Contact Info) Description 10/01/2020 Transcribed Document [facility] [place] Family Medicine [address] [place] [address] ProviderRadha MD [address] [place] [address] Social History Tobacco Use Types [...] Care Spiritual Care Referred by : Other: STRAPPER OPERATOR Event Reason for Visit : Initial Ministry Provided to : Patient Intervention/Comment/Summary Points : Chap. prayed o/s pt. while team worked with pt. Upon conclusion of STRAPPER OPERATOR event pt. declined chap. visit. BHARGAVI ANTON Chaplain - 10/01/2020 3:23 EDT documented in this encounter Plan of Treatment Not on file documented as of this encounter Visit Diagnoses Not on filedocumented in this encounter
--- OUTSIDE RECORDS SUMMARY | 2025-04-03 09:28 | XMS_ITS | Encounter Summary ---
Author Organization [employer] ([place], [place], [place], [place], [place]) Address [address] [place] [address] Care Team Providers Care Loan Processor Name Role Phone Unavailable Primary Care Provider Unavailabl e Encounter Details Date Type Department Care Team (Late st Contact Info) Description 10/13/2020 Transcribed Document [facility] [place] [address] [place] [address] ProviderRadha MD [address] [place] [address] Social History Tobacco Use Types [...]
--- OUTSIDE RECORDS SUMMARY | 2025-04-03 09:28 | XMS_ITS | Encounter Summary ---
Author Organization [employer] ([place], [place], [place], [place], [place]) Address [address] [place] [address] Care Team Providers Care Capital Equipment Specialist Name Role Phone Unavailable Primary Care Provider Unavailabl e Encounter Details Date Type Department Care Team (Late st Contact Info) Description 10/04/2020 Transcribed Document [facility] [place] [address] [place] [address] ProviderRadha MD [address] [place] [address] Social History Tobacco Use Types [...]
--- OUTSIDE RECORDS SUMMARY | 2025-04-03 09:28 | XMS_ITS | Encounter Summary ---
Author Organization [employer] ([place], [place], [place], [place], [place]) Address [address] [place] [address] Care Team Providers Care Express Clerk Name Role Phone Unavailable Primary Care Provider Unavailabl e Encounter Details Date Type Department Care Team (Late st Contact Info) Description 10/13/2020 Transcribed Document [facility] [place] Family Medicine [address] [place] [address] ProviderRadha MD [address] [place] [address] Social History Tobacco Use Types [...] Reed MD - 10/13/2020 10:28 AM CDT [facility] [place], [place] [id number] LUH BOSCH :1960 Visit Time:09/30/2020 Your Visit [...] (monosodium glutamate). MSG is sometimes added to Singaporean food, bouillon, and some canned foods. What [...] such as ricotta cheese, fresh mozzarella, or [place] Rican cheese Low-sodium or reduced-sodium cheese. Cream cheese. [...] Vegetables Sauerkraut, pickled vegetables, and relishes. Olives. Khmer fries. Onion rings. Regular canned vegetables (not [...] and sea salt. Canned and packaged gravies. [facility] sauce. Tartar sauce. Barbecue sauce. Teriyaki sauce. Soy sauce, including reduced-sodium. Steak sauce. Fish sauce. Oyster sauce. Cocktail sauce. Horseradish that you find on the shelf. Regular ketchup and mustard. Meat flavorings and tenderizers. Bouillon cubes. Hot sauce and Tabasco sauce. Premade or packaged marinades. Premade or packaged taco seasonings. Relishes. Regular salad dressings. Salsa. Potato and tortilla chips. [place] chips and puffs. Salted popcorn and pretzels. [...] provider. Document Revised: 03/16/2018 Document Reviewed: 03/27/2017 [employer] Patient Education ?? 2020 [employer] Edema Edema is an abnormal buildup [...] fluid you drink (fluid restriction). ??? Take okhi-ujf-ybfwmuw and prescription medicines only as told by [...] provider. Document Revised: 08/21/2019 Document Reviewed: 05/06/2017 Elsevier Patient Education ?? 2020 [employer] Inc. Fluid Restriction With some health conditions, [...] Reviewed: 12/06/2017 Elsevier Patient Education ?? 2020 [employer] Inc. Emergency Awareness and Preventative Care STROKE [...] Assistance with quitting is available by contacting 3-896-CGXFNOW. This is a free resource providing counseling, support, and referral. Or you may contact your personal physician. [place] [facility]: The National Suicide Prevention Lifeline is [...] range between ( 0.0 and 7.0 ) [place] #: 0.40 K/uL -- Normal range between ( 0.16 and 1.00 ) Eos #: 0.15 x10(3)/uL -- Normal range between ( 0.00 and 0.80 ) [place] %: 5.2 % -- Normal range between [...] /LPF Urine Bilirubin Dipstick: Negative Urine Specific Bivalve: 1.010 -- Normal range between ( 1.005 [...] Creatinine Urine Random: 30 mg/dL Protein Ur [place]: 24 mg/dL 10/01/2020 5:49 AM Urea Nitrogen Urine Random: 390 mg/dL Osmolality Urine: 284 mOsm/kg -- Normal range between ( 50 and 1400 ) Sodium Ur [place]: 18 mMole/Liter General Chemistry 10/13/2020 6:05 AM [...] was given the opportunity to ask questions. Patient/Paint Sprayer Sandblaster Name: Patient/Paint Sprayer Sandblaster Signature: Relationship to Patient: Clinician/Hospital Paint Sprayer Sandblaster Signature: Date: documented in this encounter Plan of Treatment Not on file documented as of this encounter Visit Diagnoses Not on filedocumented in this encounter
--- OUTSIDE RECORDS SUMMARY | 2025-04-03 09:28 | XMS_ITS | Encounter Summary ---
Author Organization [employer] ([place], [place], [place], [place], [place]) Address [address] [place] [address] Care Team Providers Care Qc Lab Technician Name Role Phone Unavailable Primary Care Provider Unavailabl e Encounter Details Date Type Department Care Team (Late st Contact Info) Description 10/08/2020 Transcribed Document [facility] [place] Family Medicine [address] [place] [address] ProviderRadha MD [address] [place] [address] Social History Tobacco Use Types [...] - 10/08/2020 3:45 EDT Electronically signed by Galen Miller Conversion Information Security Risk Analyst Cerner at 08/02/2022 6:10 PM CDT documented in this encounter Plan of Treatment Not on file documented as of this encounter Visit Diagnoses Not on filedocumented in this encounter
--- OUTSIDE RECORDS SUMMARY | 2025-04-03 09:28 | XMS_ITS | Encounter Summary ---
Author Organization [employer] ([place], [place], [place], [place], [place]) Address [address] [place] [address] Care Team Providers Care Machinery Repair Maintenance Supervisor Name Role Phone Unavailable Primary Care Provider Unavailabl e Encounter Details Date Type Department Care Team (Late st Contact Info) Description 10/12/2020 Transcribed Document [facility] [place] Family Medicine [address] [place] [address] ProviderRadha MD [address] [place] [address] Social History Tobacco Use [...] On: 10/12/2020 12:16 EDT by BHARGAVI MEYER, RN-Ophthalmic Medical TechnologistOrnament Stitcher Progress Note Discharge Arrangements : Patient Post-Acute Information Patient Name: LUH BOSCH Gender: Female : 62 Age: 59 Years No Post-Acute Placement(s) Listed No Post-Acute Service(s) Listed No Curaspan Referral(s) Listed Discharge Options Discussed with Patient : Acute rehabilitation, Discharge transportation, DME, Home Health, Short term rehabilitation Barriers to Discharge Identified : No residential bed available Barriers to Discharge Unresolved : No residential bed available, Other: precert Is the Patient Meeting Medical Necessity : No Did you Document Avoidable Days? : Yes Did you Attend Multidisciplinary Rounds? : Yes BHARGVAI MEYER, RN-Ophthalmic Medical Technologist - 10/12/2020 12:16 EDT Narrative Progress Note Narrative Progress Note : ELOS 3, hospital day 912 RRS 59 Rebecca updated per mariama. [facility]1100, trip # [id number]. Bariatric bed and bariatric stretcher requested at sn[facility] and ems. Historical Progress Note : ELOS 3, hospital day 8, RRS 59, she needs a residential care skilled bed, referrals sent to Mariama mcarthur with [facility] assessing for bariatric bed at [facility] or [facility] LIAM COWAN Rn-Ophthalmic Medical Technologist - 10/08/20 17:55:50 Received call from [facility] [phone] advising CM their facility is unable to meet pt's needs - r/t C-Diff; weight - non-ambulatory w/ bed activity; pt on transfer to [facility] - notified CM. KAROLINA PLEITEZ Rn-Ophthalmic Medical Technologist - 10/07/20 11:01:00 HD#6; ELOS 3; MRR; BOOST 7 - GenEdema/Anasarca; received voice mail from [facility] - DON requesting additional clinical information - faxed this am; awaiting return call to confirm precert has been initiated. KAROLINA PLEITEZ Rn-Ophthalmic Medical Technologist - 10/07/20 07:45:25 Dr. Pemberton tells CM pt is ready to transition and is appropriate for precert to be initiated with short-term rehab; spoke with pt and she is in agreement to go to [facility]. Contacted [facility] and she will initiate the precert and confirm with Dr. Whittaker. KAROLINA PLEITEZ Rn-Ophthalmic Medical Technologist - 10/06/20 13:57:22 HD#5; ELOS 3; MRR; BOOST 7 - Generalized Edema/Anasarca = 02/2L; Vancomycin/Midodrine; declined to stand w/therapy - will need rehab r/t ongoing weakness; discussion w/pt's family about need for rehab - possible long-term placement if unable to progress; [facility] interested to discuss with ; [facility] unable to meet pt's needs; continue to follow. KAROLINA PLEITEZ Rn-Ophthalmic Medical Technologist - 10/06/20 08:58:40 Received call from pt's daughter Leslie Og and she requested referrals be sent to [facility] in [place], [place] ([address]) and [facility] in [place], [place] ([address]). KAROLINA PLEITEZ Rn-Ophthalmic Medical Technologist - 10/05/20 15:28:00 HD#4; ELOS 3; MRR; BOOST 7 - GenEdema/Hypernatremia/Anasarca - 02=2L; B/P 105/58; PO Vancomycin; Midodrine 10 mg TID; lytes to be replaced; Nephrology has signed off; pt MaxAx2 w/therapy; updates sent thru [facility] to [facility] and left another message for f/u to confirm pt may return and anticipated turn around time for precert; DCP return for rehab; will likely require ambulance for transport; pt on transfer out of [facility]. KAROLINA PLEITEZ Rn-Ophthalmic Medical Technologist - 10/05/20 13:37:58 HD#4; ELOS 3; MRR; BOOST 7 - GenEdema/Hypernatremia/Anasarca - 02=2L; B/P 105/58; PO Vancomycin; Midodrine 10 mg TID; lytes to be replaced; Nephrology has signed off; pt MaxAx2 w/therapy; updates sent thru [facility] to [facility] and left another message for f/u to confirm pt may return and anticipated turn around time for precert; DCP return for rehab; will likely require ambulance for transport; pt on transfer out of [facility]. Spoke with [facility] and advised they will be unable to meet patient's needs; referral cancelled. sophia Spoke with pt's son Kishore and advised pt may require long-term care placement; he will discuss options with his sister and advise ; initial ref[facility]. KAROLINA PLEITEZ Rn-Ophthalmic Medical Technologist - 10/05/20 13:54:46 HD#1; ELOS 3; MRR; BOOST 7 - GenEdema/Hypernatremia/Anasarca - improving - 02=2L; Levo gtt; Midodrine; IV Bumex; Nephrology - 24 hr urine to eval for nephrotic syndrome; +CDiff; Rocephin/Doxy/Vanc; ltd work w/therapy - refusing OOB and knee/hip AROM; pt needs to be encouraged; DCP rehab - left message for [facility] [phone] to confirm receipt of referral; pt will need precert. KAROLINA PLEITEZ, Rn-Ophthalmic Medical Technologist - 10/02/20 12:06:37 HD#1; ELOS 3; MRR; BOOST 7 - Transfer from [facility]; Nephrology consult; CW=853; RA; Doxycycline/Rocephin; met w/pt's adult children Leslie Ashbytyler and Kishore Bosch ([phone]) who states DCP will be return to [facility] for ongoing rehab; explained pt will require a precert; updates clinicals sent to [facility] and voicemail left for intake [phone]; [phone]. KAROLINA PLEITEZ, Rn-Ophthalmic Medical Technologist - 10/01/20 14:32:34 BHARGAVI MEYER, SUSANA-Ophthalmic Medical Technologist - 10/12/2020 12:16 EDT Electronically signed by Galen Miller Conversion Marketing Database Coordinator Sandra at 08/02/2022 6:17 PM CDT documented in this encounter Plan of Treatment Not on file documented as of this encounter Visit Diagnoses Not on filedocumented in this encounter
--- OUTSIDE RECORDS SUMMARY | 2025-04-03 09:28 | XMS_ITS | Encounter Summary ---
Author Organization [employer] ([place], [place], [place], [place], [place]) Address [address] [place] [address] Care Team Providers Care Sales Support Consultant Name Role Phone Unavailable Primary Care Provider Unavailabl e Encounter Details Date Type Department Care Team (Late st Contact Info) Description 10/04/2020 Transcribed Document [facility] [place] Medicine [address] [place] [address] ProviderRadha MD [address] [place] [address] Social History Tobacco Use Types Packs/Day Years Used Date Smoking Tobacco: Never Assessed Comments Unknown Sex and Gender Information Value Date Recorded Sex Assigned at Not on file Legal Sex Female 7:21 PM CDT Gender Identity Not on file Sexual Orientation Not on file documented as of this encounter Miscellaneous Notes * Cerner Conversion Note - Historical ProviderMD - 10/04/2020 11:20 AM CDT Patient: LUH GLASS Age: 59 [...] pedal edema. No cyanosis. Peripheral pulses palpable. SORTING MACHINE ATTENDANT: No focal deficit noted grossly. Cranial nerves [...] - Medical Enoxaparin 40 mg, SubCutaneous, Inj, [id number], Routine, Start 09/30/20 12:00:00 EDT, 09/30/20 11:44:00 [...] Daily Lovenox, 40 mg= 0.4 mL, SubCutaneous, [id number] magnesium sulfate, 2 Gram= 50 mL, IV [...] # 0.48 x10(3)/uL (Low) 10/04/2020 04:07 EDT [place] % 3.9 % 10/04/2020 04:07 EDT [place] # 0.34 K/uL 10/04/2020 04:07 EDT Eos % 2.2 % 10/04/2020 04:07 EDT Eos # 0.19 x10(3)/uL 10/04/2020 04:07 EDT Baso % 1.0 % 10/04/2020 04:07 EDT Baso # 0.09 x10(3)/uL 10/04/2020 04:07 EDT nRBC 0.020 (High) 10/04/2020 04:07 EDT Slide Review No 10/04/2020 04:07 EDT IG# 0.11 x10(3)/uL (High) 10/04/2020 04:07 EDT IG% 1.30 % (High) 10/04/2020 04:07 EDT Electronically signed by Angela, [facility] Conversion Social Services Analyst Cerner at 08/02/2022 6:26 PM CDT documented in this encounter Plan of Treatment Not on file documented as of this encounter Visit Diagnoses Not on filedocumented in this encounter
--- OUTSIDE RECORDS SUMMARY | 2025-04-03 09:28 | XMS_ITS | Encounter Summary ---
Author Organization [employer] ([place], [place], [place], [place], [place]) Address [address] [place] [address] Care Team Providers Care Client Strategist Name Role Phone Unavailable Primary Care Provider Unavailabl e Encounter Details Date Type Department Care Team (Late st Contact Info) Description 10/04/2020 Transcribed Document [facility] [place] [address] [place] [address] ProviderRadha MD [address] [place] [address] Social History Tobacco Use Types [...] 10/04/2020 5:06 EDT Electronically signed by Angela [facility] Conversion Warehouse Loader Cerner at 08/02/2022 6:29 PM CDT documented in this encounter Plan of Treatment Not on file documented as of this encounter Visit Diagnoses Not on filedocumented in this encounter
--- OUTSIDE RECORDS SUMMARY | 2025-04-03 09:28 | XMS_ITS | Encounter Summary ---
Author Organization [employer] ([place], [place], [place], [place], [place]) Address [address] [place] [address] Care Team Providers Care Executive Steward Name Role Phone Unavailable Primary Care Provider Unavailabl e Encounter Details Date Type Department Care Team (Late st Contact Info) Description 10/08/2020 Transcribed Document [facility] [place] Family Medicine [address] [place] [address] ProviderRadha MD [address] [place] [address] Social History Tobacco Use Types [...] Radha ProviderMD - 10/08/2020 2:00 AM CDT Nanosystems Engineer Details Entered On: 10/08/2020 3:45 EDT Performed [...] 10/08/2020 3:45 EDT Electronically signed by Angela [facility] Conversion Explosive Operator Grenade Cerner at 08/02/2022 6:24 PM CDT documented in this encounter Plan of Treatment Not on file documented as of this encounter Visit Diagnoses Not on filedocumented in this encounter
--- OUTSIDE RECORDS SUMMARY | 2025-04-03 09:28 | XMS_ITS | Encounter Summary ---
Author Organization [employer] ([place], [place], [place], [place], [place]) Address [address] [place] [address] Care Team Providers Care Parts Cleaner Name Role Phone Unavailable Primary Care Provider Unavailabl e Encounter Details Date Type Department Care Team (Late st Contact Info) Description 10/13/2020 Transcribed Document [facility] [place] Family Medicine [address] [place] [address] ProviderRadha MD [address] [place] [address] Social History Tobacco Use [...] Historical ProviderMD - 10/13/2020 10:24 AM CDT Stroke/Warfarin Instructions Entered On: 10/13/2020 10:24 EDT Performed On: 10/13/2020 10:24 EDT by Faye Escobedo RN-TRAVELER Stroke/Warfarin Instructions Stroke/TIA Discharge Ins : N/A Warfarin Discharge Ins : N/A Faye Escobedo RN-TRAVELER - 10/13/2020 10:24 EDT Electronically signed by Galen Miller Conversion Computer Engineering Technician Cerner at 08/02/2022 6:16 PM CDT documented in this encounter Plan of Treatment Not on file documented as of this encounter Visit Diagnoses Not on filedocumented in this encounter
--- OUTSIDE RECORDS SUMMARY | 2025-04-03 09:28 | XMS_ITS | Encounter Summary ---
Author Organization [employer] ([place], [place], [place], [place], [place]) Address [address] [place] [address] Care Team Providers Care Production Team Leader Name Role Phone Unavailable Primary Care Provider Unavailabl e Encounter Details Date Type Department Care Team (Late st Contact Info) Description 10/12/2020 Transcribed Document [facility] [place] [address] [place] [address] ProviderRadha MD [address] [place] [address] Social History Tobacco Use Types [...] 6.6 (OCT 11) 7.7 (OCT 05) 8.8 (SEP 20) 9.4 (SEP 19) HB L 9.5 (OCT 11) L 8.6 (CLAUDIA 21) L 8.8 (CLAUDIA 20) L 9.8 (CLAUDIA 19) HCT L 30.0 (OCT 11) L 27.2 (CLAUDIA 21) L 26.9 (CLAUDIA 20) L 30.6 (CLAUDIA 19) Plt 298 (OCT 11) 300 (SEP 21) 315 (CLAUDIA 20) H 443 (SEP 19) Na 141 (OCT 12) 136 (OCT 11) 142 (CLAUDIA 25) 141 (CLAUDIA 24) K 3.6 (CLAUDIA 28) L 3.3 (CLAUDIA 27) 3.5 (CLAUDIA 25) 3.9 (CLADUIA 24) Cl 103 (OCT 12) L 101 (OCT 11) 106 (CLAUDIA 25) 106 (CLAUDIA 24) CO2 29 (CLAUDIA 28) 30 (OCT 11) 28 (CLAUDIA 25) 29 (CLAUDIA 24) BUN H 27 (OCT 12) H 29 (OCT 11) H 28 (SEP 25) H 29 (SEP 24) Cr L 0.40 (OCT 12) L 0.50 (CLAUDIA 27) L 0.50 (CLAUDIA [...] ALB L 1.6 (SEP 25) L 1.6 (SEP 19) L 2.0 (CLAUDIA [...] patient stable for discharge anticipated discharge disposition: [facility] Samantha Melendez Hospitalist pager- [phone] Electronically signed by Angela [facility] Conversion Suction Drum Drier Operator Cerner at 08/02/2022 6:02 PM CDT documented in this encounter Plan of Treatment Not on file documented as of this encounter Visit Diagnoses Not on filedocumented in this encounter
--- OUTSIDE RECORDS SUMMARY | 2025-04-03 09:28 | XMS_ITS | Encounter Summary ---
Author Organization [employer] ([place], [place], [place], [place], [place]) Address [address] [place] [address] Care Team Providers Care Office Services Specialist Name Role Phone Unavailable Primary Care Provider Unavailabl e Encounter Details Date Type Department Care Team (Late st Contact Info) Description 10/12/2020 Transcribed Document [facility] [place] Family Medicine [address] [place] [address] ProviderRadha MD [address] [place] [address] Social History Tobacco Use [...] On: 10/12/2020 16:20 EDT by BHARGAVI MEYER, RN-Water Pumper Final Discharge Planning Discharge Arrangements : Patient Post-Acute Information Patient Name: LUH GLASS Gender: Female : 62 Age: 59 Years No Post-Acute Placement(s) Listed No Post-Acute Service(s) Listed No Curaspan Referral(s) Listed Patient Offered Choice/Affiliations Explained : Yes Important Medicare Message Reviewed With : Patient Transportation Needs : Ambulance Discharge Transportation Arrangement Cmt : 10/13@1100 BHARGAVI MEYER, RN-Water Pumper - 10/12/2020 16:20 EDT documented in this encounter Plan of Treatment Not on file documented as of this encounter Visit Diagnoses Not on filedocumented in this encounter
--- OUTSIDE RECORDS SUMMARY | 2025-04-03 09:29 | XMS_ITS | Encounter Summary ---
Author Organization [employer] ([place], [place], [place], [place], [place]) Address [address] [place] [address] Care Team Providers Care Automatic Driller And Reamer Name Role Phone Unavailable Primary Care Provider Unavailabl e Encounter Details Date Type Department Care Team (Late st Contact Info) Description 10/13/2020 Transcribed Document [facility] [place] [address] [place] [address] ProviderRadha MD [address] [place] [address] Social History Tobacco Use Types [...] from hospital Discharged to, Therapy : Unit, pen[facility]iary Discharge Summary Comment, PT : last seen [...] DONNY HALE, PT - 10/13/2020 13:15 EDT Detention Goals Mobility/Bed Mobility LTG PT Grid Goal [...]
--- OUTSIDE RECORDS SUMMARY | 2025-04-03 09:29 | XMS_ITS | Encounter Summary ---
Author Organization [employer] ([place], [place], [place], [place], [place]) Address [address] [place] [address] Care Team Providers Care Metal Coater Name Role Phone Unavailable Primary Care Provider Unavailabl e Encounter Details Date Type Department Care Team (Late st Contact Info) Description 10/11/2020 Transcribed Document [facility] [place] Family Medicine [address] [place] [address] ProviderRadha MD [address] [place] [address] Social History Tobacco Use Types [...]
--- OUTSIDE RECORDS SUMMARY | 2025-04-03 09:29 | XMS_ITS | Encounter Summary ---
Author Organization [employer] ([place], [place], [place], [place], [place]) Address [address] [place] [address] Care Team Providers Care Anchor Operator Name Role Phone Unavailable Primary Care Provider Unavailabl e Encounter Details Date Type Department Care Team (Late st Contact Info) Description 10/03/2020 Transcribed Document [facility] [place] [address] [place] [address] ProviderRadha MD [address] [place] [address] Social History Tobacco Use Types [...] 10/03/2020 5:34 EDT Electronically signed by Angela [facility] Conversion Straightener Hand Cerner at 08/02/2022 6:08 PM CDT documented in this encounter Plan of Treatment Not on file documented as of this encounter Visit Diagnoses Not on filedocumented in this encounter
--- OUTSIDE RECORDS SUMMARY | 2025-04-03 09:29 | XMS_ITS | Encounter Summary ---
Author Organization [employer] ([place], [place], [place], [place], [place]) Address [address] [place] [address] Care Team Providers Care Automation Consultant Name Role Phone Unavailable Primary Care Provider Unavailabl e Encounter Details Date Type Department Care Team (Late st Contact Info) Description 10/05/2020 Transcribed Document [facility] [place] [address] [place] [address] ProviderRadha MD [address] [place] [address] Social History Tobacco Use Types Packs/Day Years Used Date Smoking Tobacco: Never Assessed Comments Unknown Sex and Gender Information Value Date Recorded Sex Assigned at Not on file Legal Sex Female 7:21 PM CDT Gender Identity Not on file Sexual Orientation Not on file documented as of this encounter Miscellaneous Notes * Cerner Conversion Note - Radha Reed MD - 10/05/2020 1:33 PM CDT On Going Discharge Planning Entered On: 10/05/2020 13:37 EDT Performed On: 10/05/2020 13:33 EDT by KAROLINA PLEITEZ Rn-Cruise CoordinatorCasing Fluid Tender Progress Note Discharge Arrangements : Patient [...] : Clinical Condition of Patient KAROLINA PLEITEZ Rn-Cruise Coordinator - 10/05/2020 13:33 EDT Narrative Progress Note Narrative Progress Note : HD#4; ELOS 3; MRR; BOOST 7 - GenEdema/Hypernatremia/Anasarca - 02=2L; B/P 105/58; PO Vancomycin; Midodrine 10 mg TID; lytes to be replaced; Nephrology has signed off; pt MaxAx2 w/therapy; updates sent thru [facility] to [facility] and left another message for f/u to confirm pt may return and anticipated turn around time for precert; DCP return for rehab; will likely require ambulance for transport; pt on transfer out of [facility]. Spoke with [facility] and advised they will be unable to meet patient's needs; referral cancelled. l Spoke with pt's son Kishore and advised pt may require long-term care placement; he will discuss options with his sister and advise CM; initial referrals sent thru [facility] to [facility]. KAROLINA PLEITEZ, Rn-Cruise Coordinator - 10/05/2020 13:53 EDT Historical Progress Note : HD#1; ELOS 3; MRR; BOOST 7 - GenEdema/Hypernatremia/Anasarca - improving - 02=2L; Levo gtt; Midodrine; IV Bumex; Nephrology - 24 hr urine to eval for nephrotic syndrome; +CDiff; Rocephin/Doxy/Vanc; ltd work w/therapy - refusing OOB and knee/hip AROM; pt needs to be encouraged; DCP rehab - left message for [facility] [phone] to confirm receipt of referral; pt will need precert. KAROLINA PLEITEZ, Rn-Cruise Coordinator - 10/02/20 12:06:37 HD#1; ELOS 3; MRR; BOOST 7 - Transfer from [facility]; Nephrology consult; [place]=325; RA; Doxycycline/Rocephin; met w/pt's adult children Leslie Ashbytyler and Kishore Bosch ([phone]) who states DCP will be return to [facility] for ongoing rehab; explained pt will require a precert; updates clinicals sent to [facility] and voicemail left for intake [phone]; [phone]. KAROLINA PLEITEZ, Rn-Cruise Coordinator - 10/01/20 14:32:34 KAROLINA PLEITEZ, Brenda-Cruise Coordinator - 10/05/2020 13:33 EDT documented in this encounter Plan of Treatment Not on file documented as of this encounter Visit Diagnoses Not on filedocumented in this encounter
--- OUTSIDE RECORDS SUMMARY | 2025-04-03 09:29 | XMS_ITS | Patient Health Record ---
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) Active confirmed Problem Hypotension due to drugs (315920534) Hypotension due to drugs (I95.2) Active confirmed Problem Gastro-esophageal reflux disease without esophagitis (903495009) Gastro-esophageal reflux disease without esophagitis (K21.9) Active confirmed Problem Cirrhosis of liver (75821279) Other cirrhosis of liver (K74.69) Active confirmed Problem Ascites (965503517) Other ascites (R18.8) Active confirmed Problem Hyponatremia (82166257) Hyponatremia (E87.1) Active confirmed Problem Hypothyroidism (72740118) Hypothyroidism (E03.9) Active confirmed Problem Mixed hyperlipidemia (392568664) Hyperlipemia, mixed (E78.2) Active confirmed Problem 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) Active confirmed Problem Peripheral edema (07628356) Peripheral edema (R60.9) Active confirmed Problem Diabetes mellitus type 2 (60405257) Diabetes mellitus type 2, uncontrolled (E11.65) Active confirmed Problem Edema (741491351) Edema leg (R60.0) Active conf irmed Problem Clostridial gastroenteritis (42061798) Enterocolitis due to Clostridium difficile, not specified [...] Coverage End Date [employer] MEDICARE [address] [address] [place] [address] [id number] PEPE GLASS Self - patient is the insured Medicaid of [place] [address] [place] [address] [phone] [id number] PEPE GLASS Self - patient is the insured Medical (General) History Surgical History Surgery Date(Month/Year) GALLBLADDER 2004 HYSTERECTOMY 2001 HAND 1988 Hospitalization History Reason Date(Month/Year) [facility] 11/2020
--- OUTSIDE RECORDS SUMMARY | 2025-04-03 09:29 | XMS_ITS | Encounter Summary ---
Author Organization [employer] ([place], [place], [place], [place], [place]) Address [address] [place] [address] Care Team Providers Care Spring Intern Name Role Phone Unavailable Primary Care Provider Unavailabl e Encounter Details Date Type Department Care Team (Late st Contact Info) Description 10/10/[address] [facility] [place] Family Medicine [address] [place] [address] ProviderRadha MD [address] [place] [address] Social History Tobacco Use Types [...]
--- OUTSIDE RECORDS SUMMARY | 2025-04-03 09:29 | XMS_ITS | Referral Summary ---
Author Organization [employer] ([place], [place], [place], [place], [place]) Address [address] [place] [address] Care Team Providers Care Title Curative Specialist Name Role Phone Unavailable Primary Care [...]
--- OUTSIDE RECORDS SUMMARY | 2025-04-03 09:29 | XMS_ITS | Encounter Summary ---
Author Organization [employer] ([place], [place], [place], [place], [place]) Address [address] [place] [address] Care Team Providers Care Documentum Consultant Name Role Phone Unavailable Primary Care Provider Unavailabl e Encounter Details Date Type Department Care Team (Late st Contact Info) Description 10/13/2020 Transcribed Document [facility] [place] [address] [place] [address] ProviderRadha MD [address] [place] [address] Social History Tobacco Use Types [...] Historical ProviderMD - 10/13/2020 2:00 AM CDT Technology Integration Specialist Details Entered On: 10/13/2020 6:37 EDT Performed [...]
--- OUTSIDE RECORDS SUMMARY | 2025-04-03 09:29 | XMS_ITS | Encounter Summary ---
Author Organization [employer] ([place], [place], [place], [place], [place]) Address [address] [place] [address] Care Team Providers Care Information Management Specialist Name Role Phone Unavailable Primary Care Provider Unavailabl e Encounter Details Date Type Department Care Team (Late st Contact Info) Description 10/03/2020 Transcribed Document [facility] [place] [address] [place] [address] ProviderRadha MD [address] [place] [address] Social History Tobacco Use Types [...] Historical ProviderMD - 10/03/2020 2:00 AM CDT Job Setter Details Entered On: 10/03/2020 3:25 EDT Performed [...]
--- OUTSIDE RECORDS SUMMARY | 2025-04-03 09:29 | XMS_ITS | Encounter Summary ---
Author Organization [employer] ([place], [place], [place], [place], [place]) Address [address] [place] [address] Care Team Providers Care Chemical Compounder Name Role Phone Unavailable Primary Care Provider Unavailabl e Encounter Details Date Type Department Care Team (Late st Contact Info) Description 09/29/2020 Transcribed Document [facility] [place] [address] [place] [address] ProviderRadha MD [address] [place] [address] Social History Tobacco Use Types [...]
--- OUTSIDE RECORDS SUMMARY | 2025-04-03 09:29 | XMS_ITS | Clinical Summary ---
Author Organization [employer] ([place], [place], [place], [place], [place]) Address [address] [place] [id number] Care Team Providers Care Winder Fixer Name Role Phone Unavailable Primary Care Provider [...]
--- OUTSIDE RECORDS SUMMARY | 2025-04-03 09:29 | XMS_ITS | Encounter Summary ---
Author Organization Healthcare Address [address] [id number] Care Team Providers Care Black Top Spreader Machine Operator Name Role Phone Clarence Ram MD Primary Care Provider [phone] Reason for Referral * Consultation (Routine) - Closed Specialty Diagnoses / Procedures Referred By Danilo joseph Referred To Contact Plastic Surgery Diagnoses Abdominal obesity Wendy Payne, RESIDENTIAL AIR SEALING TECHNICIAN [address] [place] [address] Phone: tel: fax: Referral ID Status Reason Start Date Expiration Date V isits Requested Visits Authorized [id number] Closed Specialty Services Required 09/29/2023 03/30/2025 1 1 Encounter Details Date Type Department Care Team (Late st Contact Info) Description 09/29/2023 Community Orders Community Practice [address] [place] [address] Wendy Payne, RESIDENTIAL AIR SEALING TECHNICIAN [address] [place] [address] Abdominal obesity (Primary Dx) Social History Tobacco [...] adiposity documented in this encounter Care Teams Black Top Spreader Machine Operator Relationship Specialty Start Date End Date Clarence Ram MD [address] [place] [address] [place] [address] PCP - General 08/28/20 documented as of this encounter
--- OUTSIDE RECORDS SUMMARY | 2025-04-03 09:29 | XMS_ITS | Encounter Summary ---
Author Organization [employer] ([place], [place], [place], [place], [place]) Address [address] [place] [address] Care Team Providers Care Wrecker Driver Name Role Phone Unavailable Primary Care Provider Unavailabl e Encounter Details Date Type Department Care Team (Late st Contact Info) Description 10/03/2020 Transcribed Document [facility] [place] [address] [place] [address] ProviderRadha MD [address] [place] [address] Social History Tobacco Use Types [...] pedal edema. No cyanosis. Peripheral pulses palpable. PETROLEUM LABORATORY TECHNICIAN: No focal deficit noted grossly. Cranial nerves [...] - Medical Enoxaparin 40 mg, SubCutaneous, Inj, [id number], Routine, Start 09/30/20 12:00:00 EDT, 09/30/20 11:44:00 [...] Daily Lovenox, 40 mg= 0.4 mL, SubCutaneous, [id number] magnesium sulfate, 2 Gram= 50 mL, IV [...] 10/03/2020 04:01 EDT Electronically signed by Angela, [facility] Conversion Animal Rehabilitator Cerner at 08/02/2022 6:26 PM CDT documented in this encounter Plan of Treatment Not on file documented as of this encounter Visit Diagnoses Not on filedocumented in this encounter
--- OUTSIDE RECORDS SUMMARY | 2025-04-03 09:29 | XMS_ITS | Encounter Summary ---
Author Organization [employer] ([place], [place], [place], [place], [place]) Address [address] [place] [address] Care Team Providers Care Braille Operator Name Role Phone Unavailable Primary Care Provider Unavailabl e Encounter Details Date Type Department Care Team (Late st Contact Info) Description 10/10/2020 Transcribed Document [facility] [place] Family Medicine [address] [place] [address] ProviderRadha MD [address] [place] [address] Social History Tobacco Use Types [...] Female : 1960 Associated Diagnoses: None Author: SAMANTAH GREER, Subjective pt seen by me this [...] mL inj 40 mg 0.4 mL, SubCutaneous, [id number] famotidine 20 mg tab 20 mg 1 [...] 7.7 (OCT 05) 8.8 (OCT 04) 9.4 (SEP 19) 10.4 (SEP 18) HB L 8.6 (OCT [...] discharge goals: await rehab anticipated [facility] Samantha Melendez Hospitalist pager- [phone] documented in this encounter Plan of Treatment Not on file documented as of this encounter Visit Diagnoses Not on filedocumented in this encounter
--- OUTSIDE RECORDS SUMMARY | 2025-04-03 09:29 | XMS_ITS | Encounter Summary ---
Author Organization [employer] ([place], [place], [place], [place], [place]) Address [address] [place] [address] Care Team Providers Care Lapel Baster Name Role Phone Unavailable Primary Care Provider Unavailabl e Encounter Details Date Type Department Care Team (Late st Contact Info) Description 10/03/2020 Transcribed Document [facility] Radiology [address] [place] [address] Malu Pemberton MD [address] [place] [address] [address] Social History Tobacco Use Types [...] 69 (OCT 02 16:00) MAP 76 (OCT 03:00) 68 (OCT 03 08:00) 87 (OCT 02 23:00) SpO2 L 93 (OCT 03:00) L 87 (OCT 02 16:00) 97 (OCT [...] final culture obtained. Discussed with patient, nephrology health and safety consultant and nursing. PT as tolerated Time spent with above 30 minutes documented in this encounter Plan of Treatment Not on file documented as of this encounter Visit Diagnoses Not on filedocumented in this encounter
--- OUTSIDE RECORDS SUMMARY | 2025-04-03 09:29 | XMS_ITS | Encounter Summary ---
Author Organization [employer] ([place], [place], [place], [place], [place]) Address [address] [place] [address] Care Team Providers Care Mgmt Specialist Name Role Phone Unavailable Primary Care Provider Unavailabl e Encounter Details Date Type Department Care Team (Late st Contact Info) Description 10/11/2020 Transcribed Document [facility] [place] [address] [place] [address] ProviderRadha MD [address] [place], [place] [address] Social History Tobacco Use Types Packs/Day Years Used Date Smoking Tobacco: Never Assessed Comments Unknown Sex and Gender Information Value Date Recorded Sex Assigned at Not on file Legal Sex Female 7:21 PM CDT Gender Identity Not on file Sexual Orientation Not on file documented as of this encounter Miscellaneous Notes * Cerner Conversion Note - Radha ProviderMD - 10/11/2020 6:41 AM CDT Provider Notification Entered On: 10/11/2020 6:44 EDT Performed On: 10/11/2020 6:41 EDT by Yovana Whelan Non Emp RN Provider Notification Provider Notified of Concerns/Results : Other: PT C/O HEARD OF HEARING FOR RIGHT EAR Provider Notified of : Family/Patient distribution sales representative requests a call Provider Notified Name : HOSSEIN CARRILLO MD Provider Notified Time : 10/11/2020 5:40 EDT Chain of Command Initiated : Yes Results to Provider Comment : DR CARRILLO told will come and see patient later as he has two transfer Yovana Whelan Non Emp RN - 10/11/2020 6:41 EDT Electronically signed by Angela [facility] [place] [facility] Conversion Print Production Manager Cerner at 08/02/2022 6:19 PM CDT documented in this encounter Plan of Treatment Not on file documented as of this encounter Visit Diagnoses Not on filedocumented in this encounter
--- OUTSIDE RECORDS SUMMARY | 2025-04-03 09:29 | XMS_ITS | Encounter Summary ---
Author Organization [employer] ([place], [place], [place], [place], [place]) Address [address] [place] [address] Care Team Providers Care Ux Researcher Name Role Phone Unavailable Primary Care Provider Unavailabl e Encounter Details Date Type Department Care Team (Late st Contact Info) Description 10/10/[address] [facility] [place] Family Medicine [address] [place] [address] ProviderRadha MD [address] [place] [address] Social History Tobacco Use Types [...] Historical ProviderMD - 10/10/2020 2:00 AM CDT Pump Installation And Servicer Details Entered On: 10/10/2020 4:58 EDT Performed [...]
--- OUTSIDE RECORDS SUMMARY | 2025-04-03 09:29 | XMS_ITS | Clinical Summary ---
Author Organization Healthcare Address [address] [place] [address] Care Team Providers Care Concrete Placement Equipment Operator Name Role Phone Clarence Ram MD Primary Care Provider [phone] Allergies Active Allergy Reactions Criticality Noted Date [...] Take 1 tablet by mouth Daily. Active Family History Medical History Relation Name Comments [...] [facility]-HIV Screening 1960 [facility]-Hepatitis C Screening 1960 [facility]-Medicare Annual Wellness (AWV) 1960 [facility]-Infant/Child/Adol SDOH Screenings 1960 [facility]- SDOH Screenings 11/15/1979 [facility]-Adult SDOH Screenings 11/15/1979 [facility]-DTaP,Tdap,and Td Vaccines (1 - Tdap) 1980 CT Colonography 2006 Colonoscopy 2006 FIT-DNA 2006 FIT 2006 FOBT 2006 Sigmoidoscopy 2006 [facility]-Colorectal Cancer Screening 2006 [facility]-Breast Cancer Screening 11/15/2011 NAM-CLQOU-01 Vaccine (3 - Pfizer risk series) 09/29/2020 09/01/2020, 07/22/2020 [facility]-Influenza Vaccine (#1) 12/16/202412/27, 01/25/2023, 01/31/2022, Additional history exists [facility]-Hepatitis A Vaccines Aged Out 01/28/2019, 02/15 No longer eligible based on patient's age to complete this topic [facility]-Pneumococcal Vaccine: 50+ Years Completed 11/28/2022, 12/21/2016 [facility]-Zoster Vaccines Completed 11/28/2022, [facility]-RSV Vaccine: 60+ Years or Completed 02/20/2023 [facility]-Obesity Intervention Completed 08/22/2024 HPV Vaccines (No Doses Required) Completed [facility]-HIB Vaccines Aged Out No longer e ligible based on patient's age to complete this topic [facility]-IPV Vaccines Aged Out No longer e ligible based on patient's age to complete this topic [facility]-Rotavirus Vaccines Aged Out No lo nger eligible based on patient's age to complete this topic [id number] [address] [place] MEDICARE Care Teams Concrete Placement Equipment Operator Relationship Specialty Start Date End Date Clarence Ram MD [address] [place] [address] [place] [address] PCP - General 08/28/20
--- OUTSIDE RECORDS SUMMARY | 2025-04-03 09:29 | XMS_ITS | Encounter Summary ---
Author Organization [employer] ([place], [place], [place], [place], [place]) Address [address] [place] [address] Care Team Providers Care Non Destructive Testing Technician Name Role Phone Unavailable Primary Care Provider Unavailabl e Encounter Details Date Type Department Care Team (Late st Contact Info) Description 10/11/2020 Transcribed Document [facility] [place] Family Medicine [address] [place] [address] ProviderRadha MD [address] [place] [address] Social History Tobacco Use Types [...] 05) L 8.8 (OCT 04) L 9.8 (CLAUDIA 19) HCT L 30.0 (CLAUDIA 27) L 27.2 [...] 28 (CLAUDIA 25) 29 (CLAUDIA 24) 28 (CLAUIDA 23) BUN H 29 (CLAUDIA 27) H [...] discharge disposition: snf Samantha Melendez Hospitalist pager- [phone] documented in this encounter Plan of Treatment Not on file documented as of this encounter Visit Diagnoses Not on filedocumented in this encounter
--- OUTSIDE RECORDS SUMMARY | 2025-04-03 09:29 | XMS_ITS | Encounter Summary ---
Author Organization [employer] ([place], [place], [place], [place], [place]) Address [address] [place] [address] Care Team Providers Care Matcher Name Role Phone Unavailable Primary Care Provider Unavailabl e Encounter Details Date Type Department Care Team (Late st Contact Info) Description 09/29/2020 Transcribed Document [facility] [place] Family Medicine [address] [place] [address] ProviderRadha MD [address] [place] [address] Social History Tobacco Use Types [...] gross fluid overload was transferred to [facility] from [facility] with hyponatremia. The patient story is that on 07/25, she weighed 230 pounds, with a history of having some mild lower extremity edema. She reports she gained approximately 100 pounds of water weight in 3 days on 07/28. She was hospitalized at [facility], was intermittently hypotensive and having lower extremity weakness. She improved and [facility], where for the past 2 weeks [...] care. BMI: 63.4 SARS-CoV-2 screening PCR: neg [facility] 09/29 Diet: regular, fluid restriction DVT ppx: heparin 5000 q8 Code: full Medications, labs, imaging, and available medical records reviewed. Discussed w/ RN Dictated using [employer] Speech Recognition software - unidentified reiki practitioner errors may be present. Jade Curiel DO [facility] [phone] Orders: acetaminophen, 650 mg, Oral, Tab, Q4H, [...] EDT cefTRIAXone, 1 Gram, IV Piggyback, Inj, [id number], infuse over 30 Minute(s), Routine, Start 09/30/20 [...] = 1 Cap, Oral, Daily Potassium Chloride (Sal-Cptd-Yny 10) 10 mEq oral tablet, extended release Allergies No active allergies Social History quit smoking 5 years ago no alcohol currently lives [place] Family History Dad and cousin from [place] Lab Results Test Name Test Result Date/Time [...] # 0.41 x10(3)/uL (Low) 09/29/2020 23:04 EDT [place] % 3.0 % 09/29/2020 23:04 EDT [place] # 0.34 K/uL 09/29/2020 23:04 EDT Eos [...] 09/29/20 23:53:00 EDT, Full Code, Continuous Order documented in this encounter Plan of Treatment Not on file documented as of this encounter Visit Diagnoses Not on filedocumented in this encounter
--- OUTSIDE RECORDS SUMMARY | 2025-04-03 09:29 | XMS_ITS | Encounter Summary ---
Author Organization [employer] ([place], [place], [place], [place], [place]) Address [address] [place] [address] Care Team Providers Care Teenage Program Director Name Role Phone Unavailable Primary Care Provider Unavailabl e Encounter Details Date Type Department Care Team (Late st Contact Info) Description 10/11/2020 Transcribed Document [facility] [place] Family Medicine [address] [place] [address] ProviderRadha MD [address] [place] [address] Social History Tobacco Use Types [...]
--- OUTSIDE RECORDS SUMMARY | 2025-04-03 09:29 | XMS_ITS | Encounter Summary ---
Author Organization [employer] ([place], [place], [place], [place], [place]) Address [address] [place] [address] Care Team Providers Care Web Project Manager Name Role Phone Unavailable Primary Care Provider Unavailabl e Encounter Details Date Type Department Care Team (Late st Contact Info) Description 10/13/2020 Transcribed Document [facility] [place] Family Medicine [address] [place] [address] ProviderRadha MD [address] [place], [place] [address] Social History Tobacco Use Types Packs/Day Years [...]
--- OUTSIDE RECORDS SUMMARY | 2025-04-03 09:29 | XMS_ITS | Encounter Summary ---
Author Organization [employer] ([place], [place], [place], [place], [place]) Address [address] [place] [address] Care Team Providers Care Mammographer Name Role Phone Unavailable Primary Care Provider Unavailabl e Encounter Details Date Type Department Care Team (Late st Contact Info) Description 10/03/2020 Transcribed Document [facility] [place] [address] [place] [address] ProviderRadha MD [address] [place] [address] Social History Tobacco Use Types [...]
--- OUTSIDE RECORDS SUMMARY | 2025-04-03 09:29 | XMS_ITS | Encounter Summary ---
Author Organization Healthcare Address [address] [id number] Care Team Providers Care Aadc Plans Staff Officer Name Role Phone Clarence Ram MD Primary Care Provider [phone] Reason for Referral * Consultation (Routine) - Closed Specialty Diagnoses / Procedures Referred By Danilo joseph Referred To Contact Plastic Surgery Diagnoses Loose skin Excessive body weight loss Wendy Payne APRN [address] [address] Phone: tel: fax: Referral ID Status Reason Start Date Expiration Date V isits Requested Visits Authorized [id number] Closed Specialty Services Required 05/22/2024 11/21/2025 1 1 Encounter Details Date Type Department Care Team (Late st Contact Info) Description 05/22/2024 Community Orders Community Practice [address] [place] [address] Wendy Payne APRN [address] [place] [address] Loose skin (Primary Dx); Excessive body weight [...] weight documented in this encounter Care Teams Aadc Plans Staff Officer Relationship Specialty Start Date End Date Clarence Ram MD [address] [place] [address] PCP - General 08/28/20 documented as of this encounter
--- OUTSIDE RECORDS SUMMARY | 2025-04-03 09:29 | XMS_ITS | Encounter Summary ---
Author Organization [employer] ([place], [place], [place], [place], [place]) Address [address] [place] [address] Care Team Providers Care Sanitation Truck Driver Name Role Phone Unavailable Primary Care Provider Unavailabl e Encounter Details Date Type Department Care Team (Late st Contact Info) Description 10/05/2020 Transcribed Document [facility] Radiology [address] [place] [address] Malu Pemberton MD [address] [place] [address] [address] Social History Tobacco Use Types [...] (OCT 04 18:00) MAP 68 (OCT 05 14:00) 64 (OCT 05 02:00) 89 (OCT 04 [...]
--- OUTSIDE RECORDS SUMMARY | 2025-04-03 09:30 | XMS_ITS | Encounter Summary ---
Author Organization [employer] ([place], [place], [place], [place], [place]) Address [address] [place] [address] Care Team Providers Care Steam Cleaner Name Role Phone Unavailable Primary Care Provider Unavailabl e Encounter Details Date Type Department Care Team (Late st Contact Info) Description 10/02/2020 Transcribed Document [facility] [place] [address] [place] [address] ProviderRadha MD [address] [place] [address] Social History Tobacco Use Types [...] 10/02/2020 18:13 EDT Electronically signed by Angela [facility] Conversion Product Safety Engineer Cerner at 08/02/2022 6:24 PM CDT documented in this encounter Plan of Treatment Not on file documented as of this encounter Visit Diagnoses Not on filedocumented in this encounter
--- OUTSIDE RECORDS SUMMARY | 2025-04-03 09:30 | XMS_ITS | Encounter Summary ---
Author Organization [employer] ([place], [place], [place], [place], [place]) Address [address] [place] [address] Care Team Providers Care Filter Press Tender Name Role Phone Unavailable Primary Care Provider Unavailabl e Encounter Details Date Type Department Care Team (Late st Contact Info) Description 10/05/2020 Transcribed Document [facility] [place] [address] [place] [address] ProviderRadha MD [address] [place] [address] Social History Tobacco Use Types [...] Historical ProviderMD - 10/05/2020 2:00 AM CDT High School Drafting Teacher Details Entered On: 10/05/2020 4:49 EDT Performed [...]
--- OUTSIDE RECORDS SUMMARY | 2025-04-03 09:30 | XMS_ITS | Encounter Summary ---
Author Organization [employer] ([place], [place], [place], [place], [place]) Address [address] [place] [address] Care Team Providers Care Farm Equipment Mechanic Name Role Phone Unavailable Primary Care Provider Unavailabl e Encounter Details Date Type Department Care Team (Late st Contact Info) Description 09/30/2020 Transcribed Document [facility] [place] [address] [place] [address] ProviderRadha MD [address] [place] [address] Social History Tobacco Use Types [...] Treatment Time : 10 Minute(s) HEIDI PORRAS OTR/L - 10/12/2020 15:02 EDT Functional Mobility Mobility [...] Established w Patient : Yes HEIDI PORRAS OTR/L - 10/12/2020 15:06 EDT Care Home Goals, OT Grooming LTG Grid Goal #1 Activity : Grooming Assist : Supervision or set up Date to Meet : 10/14/2020 EDT Goal Status : Progressing, continue Comment : Seated EOB HEIDI PORRAS OTR/L - 10/12/2020 15:06 EDT Toilet Transfer LTG [...] Pain Score During-Intervention : 0 HEIDI PORRAS OTR/Susanna - 10/12/2020 15:06 EDT Image 1 - Images currently included in the form version of this document have not been included in the text rendition version of the form. Anticipated Discharge Needs, OT/PT Anticipated Discharge to : Unit, correction HEIDI PORRAS OTR/Susanna 10/12/2020 15:[address] [facility] OT Charges OT Ther Activities Ea 15 Min : 1 HEIDI PORRAS OTR/Susanna - 10/12/2020 15:06 EDT documented in this encounter Plan of Treatment Not on file documented as of this encounter Visit Diagnoses Not on filedocumented in this encounter
--- OUTSIDE RECORDS SUMMARY | 2025-04-03 09:30 | XMS_ITS | Encounter Summary ---
Author Organization [employer] ([place], [place], [place], [place], [place]) Address [address] [place] [address] Care Team Providers Care Lead Blender Name Role Phone Unavailable Primary Care Provider Unavailabl e Encounter Details Date Type Department Care Team (Late st Contact Info) Description 10/02/2020 Transcribed Document [facility] [place] [address] [place] [address] ProviderRadha MD [address] [place] [address] Social History Tobacco Use Types [...] meal orders prn. Pt willing to try [id number] BID. RD to add. Will f/up as scheduled. Mariam Cohen Dietitian - 10/02/2020 10:47 EDT documented in this encounter Plan of Treatment Not on file documented as of this encounter Visit Diagnoses Not on filedocumented in this encounter
--- OUTSIDE RECORDS SUMMARY | 2025-04-03 09:30 | XMS_ITS | Encounter Summary ---
Author Organization [employer] ([place], [place], [place], [place], [place]) Address [address] [place] [address] Care Team Providers Care Groundskeeping Maintenance Worker Name Role Phone Unavailable Primary Care Provider Unavailabl e Encounter Details Date Type Department Care Team (Late st Contact Info) Description 09/29/2020 Transcribed Document [facility] [place] [address] [place] [address] ProviderRadha MD [address] [place] [address] Social History Tobacco Use Types [...]
--- OUTSIDE RECORDS SUMMARY | 2025-04-03 09:30 | XMS_ITS | Encounter Summary ---
Author Organization [employer] ([place], [place], [place], [place], [place]) Address [address] [place] [address] Care Team Providers Care Ehs Specialist Name Role Phone Unavailable Primary Care Provider Unavailabl e Encounter Details Date Type Department Care Team (Late st Contact Info) Description 10/02/2020 Transcribed Document [facility] [place] Medicine [address] [place] [address] ProviderRadha MD [address] [place] [address] Social History Tobacco Use Types [...] - 10/02/2020 11:41 AM CDT Patient: L[facility] BOSCH Age: 59 [...] pedal edema. No cyanosis. Peripheral pulses palpable. DRAPERY HEMMER AUTOMATIC: No focal deficit noted grossly. Cranial nerves [...] - Medical Enoxaparin 40 mg, SubCutaneous, Inj, [id number], Routine, Start 09/30/20 12:00:00 EDT, 09/30/20 11:44:00 [...] Daily Lovenox, 40 mg= 0.4 mL, SubCutaneous, [id number] magnesium sulfate, 2 Gram= 50 mL, IV [...]
--- OUTSIDE RECORDS SUMMARY | 2025-04-03 09:30 | XMS_ITS | Encounter Summary ---
Author Organization [employer] ([place], [place], [place], [place], [place]) Address [address] [place] [address] Care Team Providers Care Facilities Operator Name Role Phone Unavailable Primary Care Provider Unavailabl e Encounter Details Date Type Department Care Team (Late st Contact Info) Description 10/05/2020 Transcribed Document [facility] Family Medicine [address] [place] [address] ProviderRadha MD [address] [place] [address] Social History Tobacco Use Types [...] 10/05/2020 4:49 EDT Electronically signed by Angela [facility] Conversion Plywood Matcher Cerner at 08/02/2022 6:14 PM CDT documented in this encounter Plan of Treatment Not on file documented as of this encounter Visit Diagnoses Not on filedocumented in this encounter
--- OUTSIDE RECORDS SUMMARY | 2025-04-03 09:30 | XMS_ITS | Encounter Summary ---
Author Organization [employer] ([place], [place], [place], [place], [place]) Address [address] [place] [address] Care Team Providers Care Supervising Deputy Name Role Phone Unavailable Primary Care Provider Unavailabl e Encounter Details Date Type Department Care Team (Late st Contact Info) Description 09/29/2020 Transcribed Document [facility] [place] [address] [place] [address] ProviderRadha MD [address] [place] [address] Social History Tobacco Use Types [...] Household : Independent (Comment: with rollator [MELO MOLINA PT - 09/30/2020 15:14 EDT] ) Prior [...] Level : Unable to assess/activity not appropriate JESSEPETERMELO R, PT - 09/30/2020 15:14 EDT Cognition Assessment, PT Orientation : Oriented x 4 Safety/Judgment Comment : intact Follows Basic Command Assessment : intact Attention Assessment : Present JESSE MELO Calixto, PT - 09/30/2020 15:14 EDT Edu Topics Physical Therapy Education Grid Bed Mobility Training : Returns demonstration, Needs further teaching Role of Physical Therapy : Verbalizes understanding JESSE MELO Calixto, PT - 09/30/2020 15:14 EDT Indication Assesessment, [...] PT - 09/30/2020 15:14 EDT Other PT [facility] Grid Goal #1 Goal #2 Goal : Pt will maintain static sit EOB up to 5 min with supervision Pt will tolerate AROM exercises with BLE's x 10 reps each Date to Meet : 10/07/2020 EDT 10/07/2020 EDT Goal Status : Initial goal Initial goal MELO MOLINA, PT - 09/30/2020 15:14 EDT MELO MOLINA, PT - 09/30/2020 15:14 EDT Usp Goals Mobility/Bed Mobility LTG PT Grid Goal [...] aware of. Total A for hygiene as RENTAL CLERK TOOL AND EQUIPMENT assisted with pt rolling to each side [...] MELO MOLINA, PT - 09/30/2020 15:14 EDT Appling PT Charges PT Eval Moderate Complexity : 1 MELO MOLINA, PT - 09/30/2020 15:14 EDT documented in this encounter Plan of Treatment Not on file documented as of this encounter Visit Diagnoses Not on filedocumented in this encounter
--- OUTSIDE RECORDS SUMMARY | 2025-04-03 09:30 | XMS_ITS | Encounter Summary ---
Author Organization [employer] ([place], [place], [place], [place], [place]) Address [address] [place] [address] Care Team Providers Care Technical System Analyst Name Role Phone Unavailable Primary Care Provider Unavailabl e Encounter Details Date Type Department Care Team (Late st Contact Info) Description 10/05/2020 Transcribed Document [facility] [place] [address] [place] [address] ProviderRadha MD [address] [place] [address] Social History Tobacco Use Types [...] On: 10/05/2020 15:27 EDT by KAROLINA PLEITEZ Rn-Biomedical Engineering ProfessorSpecialty Manufacturing Supervisor Progress Note Discharge Arrangements : Patient [...] : Clinical Condition of Patient KAROLINA PLEITEZ Rn-Biomedical Engineering Professor - 10/05/2020 15:27 EDT Narrative Progress Note Narrative Progress Note : Received call from pt's daughter Leslie Og and she requested referrals be sent to [facility] in [place], [place] ([employer]) and [facility] in [place], [place] ([employer]). Historical Progress Note : HD#4; ELOS 3; MRR; BOOST 7 - GenEdema/Hypernatremia/Anasarca - 02=2L; B/P 105/58; PO Vancomycin; Midodrine 10 mg TID; lytes to be replaced; Nephrology has signed off; pt MaxAx2 w/therapy; updates sent thru [employer] to [place] and left another message for f/u to confirm pt may return and anticipated turn around time for precert; DCP return for rehab; will likely require ambulance for transport; pt on transfer out of [facility]. KAROLINA PLEITEZ, Rn-Biomedical Engineering Professor - 10/05/20 13:37:58 HD#4; ELOS 3; MRR; BOOST 7 - GenEdema/Hypernatremia/Anasarca - 02=2L; B/P 105/58; PO Vancomycin; Midodrine 10 mg TID; lytes to be replaced; Nephrology has signed off; pt MaxAx2 w/therapy; updates sent thru [employer] to [place] and left another message for f/u to confirm pt may return and anticipated turn around time for precert; DCP return for rehab; will likely require ambulance for transport; pt on transfer out of [facility]. Spoke with [facility] and advised they will be unable to meet patient's needs; referral cancelled. sophia Spoke with pt's son Kishore and advised pt may require long-term care placement; he will discuss options with his sister and advise ; initial referrals sent thru [facility] to [facility]. KAROLINA PLEITEZ, Brenda-Biomedical Engineering Professor - 10/05/20 13:54:46 HD#1; ELOS 3; MRR; BOOST 7 - GenEdema/Hypernatremia/Anasarca - improving - 02=2L; Levo gtt; Midodrine; IV Bumex; Nephrology - 24 hr urine to eval for nephrotic syndrome; +CDiff; Rocephin/Doxy/Vanc; ltd work w/therapy - refusing OOB and knee/hip AROM; pt needs to be encouraged; DCP rehab - left message for [facility] [phone] to confirm receipt of referral; pt will need precert. KAROLINA PLEITEZ, Rn-Biomedical Engineering Professor - 10/02/20 12:06:37 HD#1; ELOS 3; MRR; BOOST 7 - Transfer from [facility] for Generalized Edema; Nephrology consult; DG=361; RA; Doxycycline/Rocephin; met w/pt's adult children Leslie Og and Kishore Bosch ([phone]) who states DCP will be return to [place] for ongoing rehab; explained pt will require a precert; updates clinicals sent to [facility] and voicemail left for intake [phone]; [phone]. KAROLINA PLEITEZ, Rn-Biomedical Engineering Professor - 10/01/20 14:32:34 KAROLINA PLEITEZ, Rn-Biomedical Engineering Professor - 10/05/2020 15:27 EDT Electronically signed by Galen Miller Conversion Instructional Material Director Cerner at 08/02/2022 6:10 PM CDT documented in this encounter Plan of Treatment Not on file documented as of this encounter Visit Diagnoses Not on filedocumented in this encounter
--- OUTSIDE RECORDS SUMMARY | 2025-04-03 09:30 | XMS_ITS | Encounter Summary ---
Author Organization [employer] ([place], [place], [place], [place], [place]) Address [address] [place] [address] Care Team Providers Care Cut Filer Name Role Phone Unavailable Primary Care Provider Unavailabl e Encounter Details Date Type Department Care Team (Late st Contact Info) Description 09/30/2020 Transcribed Document [facility] [place] [address] [place] [address] ProviderRadha MD [address] [place] [address] Social History Tobacco Use Types [...]
--- OUTSIDE RECORDS SUMMARY | 2025-04-03 09:30 | XMS_ITS | Encounter Summary ---
Author Organization [employer] ([place], [place], [place], [place], [place]) Address [address] [place] [address] Care Team Providers Care Asset Recovery Specialist Name Role Phone Unavailable Primary Care Provider Unavailabl e Encounter Details Date Type Department Care Team (Late st Contact Info) Description 10/02/[address] [facility] [place] Medicine [address] [place] [address] ProviderRadha MD [address] [place] [address] Social History Tobacco Use Types Packs/Day Years Used Date Smoking Tobacco: Never Assessed Comments Unknown Sex and Gender Information Value Date Recorded Sex Assigned at Not on file Legal Sex Female 7:21 PM CDT Gender Identity Not on file Sexual Orientation Not on file documented as of this encounter Miscellaneous Notes * [employer]ner Conversion Note - Radha Reed MD - 10/02/2020 7:47 AM CDT UM Authorization Entered On: 10/02/2020 7:48 EDT Performed On: 10/02/2020 7:47 EDT by Verena Kimble, Applications Administrator Primary Insurance Authorization Authorization and Policy Numbers : Insurance 1 Health Plan: [employer] P[employer] Policy Number: [id number] Authorization Number: Insurance 2 Health Plan: [place] Policy Number: [id number] Authorization Number: Insurance Primary Name : [employer] PPO Policy Number: [id number] Authorization Status-Primary : Notification only Reference Number-Primary : [id number] Authorization Number-Primary : [id number] Authorized Service Begin Date-Primary : 09/29/2020 EDT Authorization Comments-Primary : Authorized per email from Angel Poon RN. Historical Authorization Comments-Primary : Comment 1: SUBMITTED ON [employer]. PAYOR HAS ACCESS TO EMR (Daisy Davison Rn-Utilization Review 09/30/2020 13:24) Verena Kimble, Applications Administrator - 10/02/2020 7:47 EDT Electronically signed by Angela [facility] Conversion Lead Web Developer [employer]ner at 08/02/2022 6:09 PM CDT documented in this encounter Plan of Treatment Not on file documented as of this encounter Visit Diagnoses Not on filedocumented in this encounter
--- OUTSIDE RECORDS SUMMARY | 2025-04-03 09:30 | XMS_ITS | Encounter Summary ---
Author Organization [employer] ([place], [place], [place], [place], [place]) Address [address] [place] [address] Care Team Providers Care Dry Transfer Worker Name Role Phone Unavailable Primary Care Provider Unavailabl e Encounter Details Date Type Department Care Team (Late st Contact Info) Description 10/02/2020 Transcribed Document [facility] [place] [address] [place] [address] ProviderRadha MD [address] [place] [address] Social History Tobacco Use Types [...]
--- OUTSIDE RECORDS SUMMARY | 2025-04-03 09:30 | XMS_ITS | Encounter Summary ---
Author Organization [employer] ([place], [place], [place], [place], [place]) Address [address] [place] [address] Care Team Providers Care Teaching Young Name Role Phone Unavailable Primary Care Provider Unavailabl e Encounter Details Date Type Department Care Team (Late st Contact Info) Description 09/29/2020 Transcribed Document [facility] [place] [address] [place] [address] ProviderRadha MD [address] [place] [address] Social History Tobacco Use Types [...] UE Strength : Impaired IVY LACEY OTR/Susanna - 09/30/2020 15:25 EDT Right Upper Extremity MMT [...] Rehab Maximal assistance (Comment: x2 [IVY LACEY, OTR/Suasnna - 09/30/2020 15:25 EDT] ) Bed Roll [...] IVY LACEY OTR/Susanna - 09/30/2020 15:25 EDT Econometrician Goals, OT Grooming LTG Grid Goal #1 [...] IVY LACEY OTR/L - 09/30/2020 15:25 EDT Electronically signed by Angela, [facility] Conversion Circulation Sales Representative Cerner at 08/02/2022 6:30 PM CDT documented in this encounter Plan of Treatment Not on file documented as of this encounter Visit Diagnoses Not on filedocumented in this encounter
--- OUTSIDE RECORDS SUMMARY | 2025-04-03 09:30 | XMS_ITS | Encounter Summary ---
Author Organization [employer] ([place], [place], [place], [place], [place]) Address [address] [place] [address] Care Team Providers Care Assessment Director Name Role Phone Unavailable Primary Care Provider Unavailabl e Encounter Details Date Type Department Care Team (Late st Contact Info) Description 10/02/2020 Transcribed Document [facility] [place] [address] [place] [address] ProviderRadha MD [address] [place] [address] Social History Tobacco Use Types Packs/Day Years Used Date Smoking Tobacco: Never Assessed Comments Unknown Sex and Gender Information Value Date Recorded Sex Assigned at Not on file Legal Sex Female 7:21 PM CDT Gender Identity Not on file Sexual Orientation Not on file documented as of this encounter Miscellaneous Notes * Cerner Conversion Note - Radha Reed MD - 10/02/2020 12:02 PM CDT On Going Discharge Planning Entered On: 10/02/2020 12:06 EDT Performed On: 10/02/2020 12:02 EDT by KAROLINA PLEITEZ Rn-Jacquard Lace WeaverSandfill Operator Progress Note Discharge Arrangements : Patient Post-Acute [...] : Clinical Condition of Patient KAROLINA PLEITEZ Rn-Jacquard Lace Weaver - 10/02/2020 12:02 EDT Narrative Progress Note Narrative Progress Note : HD#1; ELOS 3; MRR; BOOST 7 - GenEdema/Hypernatremia/Anasarca - improving - 02=2L; Levo gtt; Midodrine; IV Bumex; Nephrology - 24 hr urine to eval for nephrotic syndrome; +CDiff; Rocephin/Doxy/Vanc; ltd work w/therapy - refusing OOB and knee/hip AROM; pt needs to be encouraged; DCP rehab - left message for [facility] [phone] to confirm receipt of referral; pt will need precert. Historical Progress Note : HD#1; ELOS 3; MRR; BOOST 7 - Transfer from [facility] for Generalized Edema; Nephrology consult; UW=[id number]; RA; Doxycycline/Rocephin; met w/pt's adult children Leslie Lenka and Kishore Bosch ([phone]) who states DCP will be return to [facility] for ongoing rehab; explained pt will require a precert; [facility] [place] [facility] [phone]; [phone]. KAROLINA PLEITEZ, Rn-Jacquard Lace Weaver - 10/01/20 14:32:34 KAROLINA PLEITEZ Rn-Jacquard Lace Weaver - 10/02/2020 12:02 EDT documented in this encounter Plan of Treatment Not on file documented as of this encounter Visit Diagnoses Not on filedocumented in this encounter
--- OUTSIDE RECORDS SUMMARY | 2025-04-03 09:30 | XMS_ITS | Encounter Summary ---
Author Organization [employer] ([place], [place], [place], [place], [place]) Address [address] [place] [address] Care Team Providers Care Cathode Washer Name Role Phone Unavailable Primary Care Provider Derrell e Encounter Details Date Type Department Care Team (Late st Contact Info) Description 10/02/2020 Transcribed Document [facility] [place] [address] [place] [address] ProviderRadha MD [address] [place] [address] Social History Tobacco Use Types [...] - 10/02/2020 1:40 PM CDT Patient: LUH GLASS Age: 59 [...] mg, Oral, Daily Lovenox: 40 mg, SubCutaneous, [id number] MiraLax: 17 Gram, Oral, Daily, PRN: Constipation NORepinephrine injection 8 mg + NaCl 0.9% for drip 250 mL: Titrate, IntraVENous Phenergan: 6.25 mg, IntraVENous, Q6H, PRN: Nausea Rocephin: 1 Gram, 100 mL/Hr, IV Piggyback, [id number] Roxicodone: 5 mg, Oral, Q4H, PRN: Pain [...] History of obstructive sleep apnea / IMO [id number] / Confirmed, Active Problems (6) Diabetes mellitus [...] rn cct 33mins Electronically signed by Angela, [facility] Conversion Technician Semiconductor Development Cerner at 08/02/2022 6:16 PM CDT documented in this encounter Plan of Treatment Not on file documented as of this encounter Visit Diagnoses Not on filedocumented in this encounter
--- OUTSIDE RECORDS SUMMARY | 2025-04-03 09:30 | XMS_ITS | Encounter Summary ---
Author Organization [employer] ([place], [place], [place], [place], [place]) Address [address] [place] [address] Care Team Providers Care Template Checker Name Role Phone Unavailable Primary Care Provider Unavailabl e Encounter Details Date Type Department Care Team (Late st Contact Info) Description 10/02/2020 Transcribed Document [facility] [place] [address] [place] [address] ProviderRadha MD [address] [place] [address] Social History Tobacco Use Types Packs/Day Years Used Date Smoking Tobacco: Never Assessed Comments Unknown Sex and Gender Information Value Date Recorded Sex Assigned at Not on file Legal Sex Female 7:21 PM CDT Gender Identity Not on file Sexual Orientation Not on file documented as of this encounter Miscellaneous Notes * [employer]ner Conversion Note - Historical ProviderMD - 10/02/2020 5:00 AM CDT Chart Check - Review Order Profile Entered On: 10/02/2020 4:28 EDT Performed On: 10/02/2020 5:00 EDT by Natasha Sweeney RN Chart Check Powerplans Initiated/Discontinued as Appropriate : Yes All Active Orders Reviewed : Yes Natasha Sweeney RN - 10/02/2020 4:28 EDT Electronically signed by Angela rickie Conversion Sustainable Landscape Architect Cerner at 08/02/2022 6:27 PM CDT documented in this encounter Plan of Treatment Not on file documented as of this encounter Visit Diagnoses Not on filedocumented in this encounter
--- OUTSIDE RECORDS SUMMARY | 2025-04-03 09:30 | XMS_ITS | Encounter Summary ---
Author Organization [employer] ([place], [place], [place], [place], [place]) Address [address] [place] [address] Care Team Providers Care Blood Bank Credit Clerk Name Role Phone Unavailable Primary Care Provider Unavailabl e Encounter Details Date Type Department Care Team (Late st Contact Info) Description 09/30/2020 Transcribed Document [facility] [place] Family Medicine [address] [place] [address] ProviderRadha MD [address] [place] [address] Social History Tobacco Use Types [...] On: 09/30/2020 15:38 EDT by PADMA GOMEZ Header Setup Operator-Puddler Helper Initial Assessment I Previously Documented Living Environment [...] have PCP Listed? : No PADMA GOMEZ Header Setup Operator-Puddler Helper - 09/30/2020 15:38 EDT Initial Assessment II Sensory and Motor Deficits : Weakness Current Home Treatments and Equipment : Bedside commode, Walker PADMA GOMEZ Header Setup Operator-Puddler Helper - 09/30/2020 15:38 EDT Discharge Needs I Anticipated Discharge To, CM : Home with home health, [facility]PC facility Current Home Treatment/Equipment : Current Home Treatment/Equipment No qualifying data available. Post Acute/Home Treatments : None Documentation Status Complete : Yes PADMA GOMEZ Header Setup Operator-Puddler Helper - 09/30/2020 15:38 EDT Discharge Needs II Professional Skilled Services : Professional Skilled Services No qualifying data available. Needs Assistance with Transportation : Maybe Discharge Options Discussed with Patient : Acute rehabilitation, Discharge transportation, DME, Home Health, Short term rehabilitation PADMA GOMEZ Header Setup Operator-Puddler Helper - 09/30/2020 15:38 EDT Narrative Note Narrative Note : Patient is a moderate readmission risk of 41 Boost of 5. Patient is from [facility]. Patient reported that she doesn't want to go back there if she can walk. Patient stated that she was unable to walk today because of fluid on me . Patient stated that if she can't walk at discharge she understands she has [facility]. Patient stated that if she can she wants to go home without any services including HH. Patient denied ever having HH. CM will continue to follow. PADMA GOMEZ Header Setup Operator-Puddler Helper - 09/30/2020 15:38 EDT documented in this encounter Plan of Treatment Not on file documented as of this encounter Visit Diagnoses Not on filedocumented in this encounter
--- OUTSIDE RECORDS SUMMARY | 2025-04-03 09:30 | XMS_ITS | Encounter Summary ---
Author Organization [employer] ([place], [place], [place], [place], [place]) Address [address] [place] [address] Care Team Providers Care Stand In Name Role Phone Unavailable Primary Care Provider Unavailabl e Encounter Details Date Type Department Care Team (Late st Contact Info) Description 09/29/2020 Transcribed Document [facility] [place] [address] [place] [address] ProviderRadha MD [address] [place] [address] Social History Tobacco Use Types [...] : daughter Emergency Contact #2 : frandy bosch Emergency Contact #2 Emergency Contact #2 Relationship : son Primary Language : Korean Communication Barrier : None Remote Broadcast Engineer Needed : No Marlee Richmond RN - [...] Scale Risk Level : 25-45 Medium Risk [place] Fall Interventions : Adequate lighting, Assistive devices [...] Source : Stated Height Entry Format : [place] Height, Feet : 5 ft(Converted to: 152 cm, 60 Inch) Height, Inches : 2 Inch(Converted to: 0 ft 2 Inch, 5.08 cm) Clinical Height : 157.48 cm Weight Source : Standing scale Weight Entry Format : [place] Clinical Dosing Weight : 157.27 kg Weight, Pounds : 346 lb Body Surface Area (BSA) : 2.42 m2 Body Mass Index : 63.4 kg/m2 (>HHI) [place] Body Weight : 50 kg Marlee Richmond [...] Marlee Richmond RN - 09/29/2020 23:18 EDT [place] Suicide Severity Rating Scale (C-SSRS) CSSRS Past [...]
--- OUTSIDE RECORDS SUMMARY | 2025-04-03 09:30 | XMS_ITS | Encounter Summary ---
Author Organization [employer] ([place], [place], [place], [place], [place]) Address [address] [place] [address] Care Team Providers Care Anesthesiology Tech Name Role Phone Unavailable Primary Care Provider Unavailabl e Encounter Details Date Type Department Care Team (Late st Contact Info) Description 10/07/2020 Transcribed Document [facility] [place] Family Medicine [address] [place] [address] ProviderRadha MD [address] [place] [address] Social History Tobacco Use Types Packs/Day Years Used Date Smoking Tobacco: Never Assessed Comments Unknown Sex and Gender Information Value Date Recorded Sex Assigned at Not on file Legal Sex Female 7:21 PM CDT Gender Identity Not on file Sexual Orientation Not on file documented as of this encounter Miscellaneous Notes * Cerner Conversion Note - Radha Reed MD - 10/07/2020 10:58 AM CDT On Going Discharge Planning Entered On: 10/07/2020 11:01 EDT Performed On: 10/07/2020 10:58 EDT by KAROLINA PLEITEZ Rn-BioengineerProgress Worker Progress Note Discharge Arrangements : Patient Post-Acute Information Patient Name: LUH BOSCH Gender: Female : 62 Age: 59 Years Ruth Referral(s): Service: Organization: Business Address: Phone Number: Long-Term Facility [facility] [address] [place], [address] Discharge Options Discussed with Patient : Acute rehabilitation, Discharge transportation, DME, Home Health, Short term rehabilitation Barriers to Discharge Identified : Clinical Condition of Patient, Follow-Up appointments needed Barriers to Discharge Unresolved : Clinical Condition of Patient KAROLINA PLEITEZ Rn-Bioengineer - 10/07/2020 10:58 EDT Narrative Progress Note Narrative Progress Note : Received call from [facility] [phone] advising CM their facility is unable to meet pt's needs - r/t C-Diff; weight - non-ambulatory w/ bed activity; pt on transfer to [facility] - notified CM. Historical Progress Note : HD#6; ELOS 3; MRR; BOOST 7 - GenEdema/Anasarca; received voice mail from [facility] - DON requesting additional clinical information - faxed this am; awaiting return call to confirm precert has been initiated. KAROLINA PLEITEZ, Rn-Bioengineer - 10/07/20 07:45:25 Dr. Pemberton tells CM pt is ready to transition and is appropriate for precert to be initiated with short-term rehab; spoke with pt and she is in agreement to go to [facility]. Contacted [facility] and she will initiate the precert and confirm with Dr. Whittaker. KAROLINA PLEITEZ Rn-Bioengineer - 10/06/20 13:57:22 HD#5; ELOS 3; MRR; BOOST 7 - Generalized Edema/Anasarca = 02/2L; Vancomycin/Midodrine; declined to stand w/therapy - will need rehab r/t ongoing weakness; discussion w/pt's family about need for rehab - possible long-term placement if unable to progress; [facility] interested to discuss with MD; [facility] unable to meet pt's needs; continue to follow. KAROLINA PLEITEZ Rn-Bioengineer - 10/06/20 08:58:40 Received call from pt's daughter Leslie Og and she requested referrals be sent to [facility] in [place], [place] ([facility]) and [facility] in [place], [place] ([facility]). KAROLINA PLEITEZ Rn-Bioengineer - 10/05/20 15:28:00 HD#4; ELOS 3; MRR; BOOST 7 - GenEdema/Hypernatremia/Anasarca - 02=2L; B/P 105/58; PO Vancomycin; Midodrine 10 mg TID; lytes to be replaced; Nephrology has signed off; pt MaxAx2 w/therapy; [facility] and left another message for f/u to confirm pt may return and anticipated turn around time for precert; DCP return for rehab; will likely require ambulance for transport; pt on transfer out of [facility]. KAROLINA PLEITEZ Rn-Bioengineer - 10/05/20 13:37:58 HD#4; ELOS 3; MRR; BOOST 7 - GenEdema/Hypernatremia/Anasarca - 02=2L; B/P 105/58; PO Vancomycin; Midodrine 10 mg TID; lytes to be replaced; Nephrology has signed off; pt MaxAx2 w/therapy; updates sent thru [facility] to [facility] and left another message for f/u to confirm pt may return and anticipated turn around time for precert; DCP return for rehab; will likely require ambulance for transport; pt on transfer out of [facility]. Spoke with [facility] and advised they will be unable to meet patient's needs; referral cancelled. sophia Spoke with pt's son Kishore and advised pt may require long-term care placement; he will discuss options with his sister and advise CM; initial referrals sent thru [facility] to [facility]. KAROLINA PLEITEZ Rn-Bioengineer - 10/05/20 13:54:46 HD#1; ELOS 3; MRR; BOOST 7 - GenEdema/Hypernatremia/Anasarca - improving - 02=2L; Levo gtt; Midodrine; IV Bumex; Nephrology - 24 hr urine to eval for nephrotic syndrome; +CDiff; Rocephin/Doxy/Vanc; ltd work w/therapy - refusing OOB and knee/hip AROM; pt needs to be encouraged; DCP rehab - left message for [facility] [phone] to confirm receipt of referral; pt will need precert. KAROLINA LPEITEZ Rn-Bioengineer - 10/02/20 12:06:37 HD#1; ELOS 3; MRR; BOOST 7 - Transfer from [facility] for Generalized Edema; Nephrology consult; EA=[id number]; RA; Doxycycline/Rocephin; met w/pt's adult children Leslie Ashbytyler and Kishore Bosch ([phone]) who states DCP will be return to [facility] for ongoing rehab; explained pt will require a precert; updates clinicals sent to [facility] and [facility] left for intake [phone]; [phone]. KAROLINA PLEITEZ Rn-Bioengineer - 10/01/20 14:32:34 KAROLINA PLEITEZ Rn-Bioengineer - 10/07/2020 10:58 EDT documented in this encounter Plan of Treatment Not on file documented as of this encounter Visit Diagnoses Not on filedocumented in this encounter
--- OUTSIDE RECORDS SUMMARY | 2025-04-03 09:30 | XMS_ITS | Encounter Summary ---
Author Organization [employer] ([place], [place], [place], [place], [place]) Address [address] [place] [address] Care Team Providers Care Waiter/Waitress Tourist Class Name Role Phone Unavailable Primary Care Provider Unavailabl e Encounter Details Date Type Department Care Team (Late st Contact Info) Description 10/05/2020 Transcribed Document [facility] Family Medicine [address] [place] [address] ProviderRadha MD [address] [place] [address] Social History Tobacco Use Types Packs/Day Years Used Date Smoking Tobacco: Never Assessed Comments Unknown Sex and Gender Information Value Date Recorded Sex Assigned at Not on file Legal Sex Female 7:21 PM CDT Gender Identity Not on file Sexual Orientation Not on file documented as of this encounter Miscellaneous Notes * Cerner Conversion Note - Radha Reed MD - 10/05/2020 3:00 AM CDT Nutrition Assessment [...] and eating ~50% of her meals. 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
--- OUTSIDE RECORDS SUMMARY | 2025-04-03 09:30 | XMS_ITS | Encounter Summary ---
Author Organization [employer] ([place], [place], [place], [place], [place]) Address [address] [place] [address] Care Team Providers Care Mobile Home Park Manager Name Role Phone Unavailable Primary Care Provider Unavailabl e Encounter Details Date Type Department Care Team (Late st Contact Info) Description 10/05/2020 Transcribed Document [facility] Family Medicine [address] [place] [address] ProviderRadha MD [address] [place] [address] Social History Tobacco Use Types Packs/Day Years Used Date Smoking Tobacco: Never Assessed Comments Unknown Sex and Gender Information Value Date Recorded Sex Assigned at Not on file Legal Sex Female 7:21 PM CDT Gender Identity Not on file Sexual Orientation Not on file documented as of this encounter Miscellaneous Notes * Cerner Conversion Note - Historical ProviderMD - 10/05/2020 5:00 PM CDT Chart [...]
--- OUTSIDE RECORDS SUMMARY | 2025-04-03 09:30 | XMS_ITS | Encounter Summary ---
Author Organization [employer] ([place], [place], [place], [place], [place]) Address [address] [place] [address] Care Team Providers Care Research Affiliate Name Role Phone Unavailable Primary Care Provider Unavailabl e Encounter Details Date Type Department Care Team (Late st Contact Info) Description 09/30/2020 Transcribed Document [facility] Family Medicine [address] [place] [address] ProviderRadha MD [address] [place] [address] Social History Tobacco Use Types Packs/Day Years Used Date Smoking Tobacco: Never Assessed Comments Unknown Sex and Gender Information Value Date Recorded Sex Assigned at Not on file Legal Sex Female 7:21 PM CDT Gender Identity Not on file Sexual Orientation Not on file documented as of this encounter Miscellaneous Notes * Cerner Conversion Note - Radha ProviderMD - 09/30/2020 9:38 AM CDT Patient: LUH [...] much for the consult. WIll follow along. [id number] Electronically signed by Angela [facility] Conversion Register Repairer Cerner at 08/02/2022 6:21 PM CDT documented in this encounter Plan of Treatment Not on file documented as of this encounter Visit Diagnoses Not on filedocumented in this encounter
--- OUTSIDE RECORDS SUMMARY | 2025-04-03 09:30 | XMS_ITS | Encounter Summary ---
Author Organization [employer] ([place], [place], [place], [place], [place]) Address [address] [place] [address] Care Team Providers Care Pilot Fuel Engineer Name Role Phone Unavailable Primary Care Provider Unavailabl e Encounter Details Date Type Department Care Team (Late st Contact Info) Description 10/02/2020 Transcribed Document [facility] Family Medicine [address] [place] [address] ProviderRadha MD [address] [place] [address] Social History Tobacco Use Types [...] Historical ProviderMD - 10/02/2020 2:00 AM CDT Instructional Assistant Details Entered On: 10/02/2020 0:09 EDT Performed [...] Needs Meds Crushed/Liquid : No Natasha Sweeney, RN - 10/02/2020 0:08 EDT documented in this encounter Plan of Treatment Not on file documented as of this encounter Visit Diagnoses Not on filedocumented in this encounter
--- OUTSIDE RECORDS SUMMARY | 2025-04-03 09:30 | XMS_ITS | Encounter Summary ---
Author Organization [employer] ([place], [place], [place], [place], [place]) Address [address] [place] [address] Care Team Providers Care Teasel Gig Operator Name Role Phone Unavailable Primary Care Provider Unavailabl e Encounter Details Date Type Department Care Team (Late st Contact Info) Description 10/07/2020 Transcribed Document [facility] [place] [address] [place] [address] ProviderRadha MD [address] [place] [address] Social History Tobacco Use Types [...] On: 10/07/2020 7:43 EDT by KAROLINA PLEITEZ Rn-Coagulating Drying SupervisorSales Management Intern Progress Note Discharge Arrangements : Patient Post-Acute Information Patient Name: LUH BOSCH Gender: Female : 62 Age: 59 Years Ruth Referral(s): Service: Organization: Business Address: Phone Number: Alf Facility [facility] [address] [place], [address] Discharge Options Discussed with Patient : Acute rehabilitation, Discharge transportation, DME, Home Health, Short term rehabilitation Barriers to Discharge Identified : Clinical Condition of Patient, Follow-Up appointments needed Barriers to Discharge Unresolved : Clinical Condition of Patient KAROLINA PLEITEZ Rn-Coagulating Drying Supervisor - 10/07/2020 7:43 EDT Narrative Progress Note Narrative Progress Note : HD#6; ELOS 3; MRR; BOOST 7 - GenEdema/Anasarca; received voice mail from [facility] - DON requesting additional clinical information - faxed this am; awaiting return call to confirm precert has been initiated. Historical Progress Note : Dr. Pemberton tells CM pt is ready to transition and is appropriate for precert to be initiated with short-term rehab; spoke with pt and she is in agreement to go to [facility]. Contacted [facility] and she will initiate the precert and confirm with Dr. Whittaker. KAROLINA PLEITEZ Rn-Coagulating Drying Supervisor - 10/06/20 13:57:22 HD#5; ELOS 3; MRR; BOOST 7 - Generalized Edema/Anasarca = 02/2L; Vancomycin/Midodrine; declined to stand w/therapy - will need rehab r/t ongoing weakness; discussion w/pt's family about need for rehab - possible long-term placement if unable to progress; [facility] interested to discuss with MD; [facility] unable to meet pt's needs; continue to follow. KAROLINA PLEITEZ Rn-Coagulating Drying Supervisor - 10/06/20 08:58:40 Received call from pt's daughter Leslie Og and she requested referrals be sent to [facility] in [place], [place] ([facility]) and [facility] in [place], [place] ([facility]). KAROLINA PLEITEZ Rn-Coagulating Drying Supervisor - 10/05/20 15:28:00 HD#4; ELOS 3; MRR; BOOST 7 - GenEdema/Hypernatremia/Anasarca - 02=2L; B/P 105/58; PO Vancomycin; Midodrine 10 mg TID; lytes to be replaced; Nephrology has signed off; pt MaxAx2 w/therapy; updates sent thru [facility] to [facility] and left another message for f/u to confirm pt may return and anticipated turn around time for precert; DCP return for rehab; will likely require ambulance for transport; pt on transfer out of [facility]. KAROLINA PLEITEZ Rn-Coagulating Drying Supervisor - 10/05/20 13:37:58 HD#4; ELOS 3; MRR; BOOST 7 - GenEdema/Hypernatremia/Anasarca - 02=2L; B/P 105/58; PO Vancomycin; Midodrine 10 mg TID; lytes to be replaced; Nephrology has signed off; pt MaxAx2 w/therapy; updates sent thru [facility] to [facility] and left another message for f/u to confirm pt may return and anticipated turn around time for precert; DCP return for rehab; will likely require ambulance for transport; pt on transfer out of [facility]. Spoke with [facility] and advised they will be unable to meet patient's needs; referral cancelled. sophia Spoke with pt's son Kishore and advised pt may require long-term care placement; he will discuss options with his sister and advise CM; initial referrals sent thru [facility] to [place]. KAROLINA PLEITEZ, Rn-Coagulating Drying Supervisor - 10/05/20 13:54:46 HD#1; ELOS 3; MRR; BOOST 7 - GenEdema/Hypernatremia/Anasarca - improving - 02=2L; Levo gtt; Midodrine; IV Bumex; Nephrology - 24 hr urine to eval for nephrotic syndrome; +CDiff; Rocephin/Doxy/Vanc; ltd work w/therapy - refusing OOB and knee/hip AROM; pt needs to be encouraged; DCP rehab - left message for [facility] [phone] to confirm receipt of referral; pt will need precert. KAROLINA PLEITEZ Rn-Coagulating Drying Supervisor - 10/02/20 12:06:37 HD#1; ELOS 3; MRR; BOOST 7 - Transfer from [facility] for Generalized Edema; Nephrology consult; FU=[id number]; RA; Doxycycline/Rocephin; met w/pt's adult children Leslie Og and Kishore Bosch ([phone]) who states DCP will be return to [facility] for ongoing rehab; explained pt will require a precert; updates clinicals sent to [facility] and voicemail left for intake [phone]; [phone]. KAROLINA PLEITEZ Rn-Coagulating Drying Supervisor - 10/01/20 14:32:34 KAROLINA PLEITEZ Rn-Coagulating Drying Supervisor - 10/07/2020 7:43 EDT Electronically signed by Angela, [facility] Conversion Manager Of Housekeeping Cerner at 08/02/2022 6:20 PM CDT documented in this encounter Plan of Treatment Not on file documented as of this encounter Visit Diagnoses Not on filedocumented in this encounter
--- OUTSIDE RECORDS SUMMARY | 2025-04-03 09:31 | XMS_ITS | Encounter Summary ---
Author Organization [employer] ([place], [place], [place], [place], [place]) Address [address] [place] [address] Care Team Providers Care Cocoa Mill Operator Name Role Phone Unavailable Primary Care Provider Unavailabl e Encounter Details Date Type Department Care Team (Late st Contact Info) Description 09/30/2020 Transcribed Document [facility] [place] [address] [place] [address] ProviderRadha MD [address] [place] [address] Social History Tobacco Use Types [...] PT Evaluation and Treatment Ordered By: JADE CRUIEL DO 09/30/2020 15:51 PT Additional Treatment Ordered [...] Maximal assistance (Comment: x 2 [JO-ANN MILES, [facility] 10/07/2020 12:32 EDT] ) Bed Roll Right : Rehab Maximal assistance (Comment: x 2 [JO-ANN MILES, [facility] 10/07/2020 12:32 EDT] ) Bed Scooting : Rehab Total assistance (Comment: x 2 [MILESKALAEN, [facility] 10/07/2020 12:32 EDT] ) JO-ANN MILES [facility] 10/07/2020 12:32 EDT Gait Training/Assessment, PT Gait Assistance Level : Unable to assess/activity not appropriate Gait Training Comment : pt not agreeable to OOB today JO-ANN MILES [facility] 10/07/2020 12:32 EDT Cognitive Treatment, PT Orientation : Oriented x [address] JO-[address] [facility] 10/07/2020 12:32 EDT Edu Topics Physical Therapy Education Grid Bed Mobility Training : Needs further teaching Gait Training : Needs further teaching Role of Physical Therapy : Verbalizes understanding Safety : Needs further teaching Transfer Training : Needs further teaching JO-ANN MILES [facility] 10/07/2020 12:32 EDT Indication Assesessment, PT Physical Therapy Indicated : Yes JO-ANN MILES [facility] 10/07/2020 12:32 EDT Plan of Care, PT PT Tx Plan/Goals Established w Patient : Yes JO-ANN MILES [facility] 10/07/2020 12:32 EDT Short Term Goals Mobility/Bed Mobility STG PT Grid Goal #1 Goal #2 Activity : Supine to sit Assist : Assist, maximal Date to Meet : 10/07/2020 EDT Goal Status : Progressing, continue Comment : SEE GOALS BELOW JO-ANN MILES [facility] 10/07/2020 12:32 EDT MILESJO-ANN BEAUCHAMPARTURO 10/07/2020 12:32 EDT Other PT STG Grid Goal #1 Goal #2 Goal : Pt will maintain static sit EOB up to 5 min with supervision Pt will tolerate AROM exercises with BLE's x 10 reps each Date to Meet : 10/07/2020 EDT 10/07/2020 EDT Goal Status : Goal met Goal met Date Met : 10/04/2020 EDT 10/04/2020 EDT JO-[address] [facility] 10/07/2020 12:32 EDT JO-ANN MILES, SALES ORDER PROCESSOR - 10/07/2020 12:32 EDT Frame Gate Mortiser Operator Goals Mobility/Bed Mobility LTG PT Grid Goal #1 Goal #2 Activity : Supine to sit Sit to stand Assist : Assist, moderate Assist, moderate Equipment : Other: adenike RWx Date to Meet : 10/14/2020 EDT 10/14/2020 EDT Goal Status : Progressing, continue Intial Goal GINGERKALAEN, SALES ORDER PROCESSOR - 10/07/2020 12:32 EDT GINGERKALAEN, ARTURO - 10/07/2020 12:32 EDT Transfer LTG Grid Goal #1 Destination : Chair, with arms Type : Stand Pivot Sit Assist : Assist, moderate Date to Meet : 10/14/2020 EDT Goal Status : Intial Goal JO-ANN MILES, ARTURO - 10/07/2020 12:32 EDT Ambulation LTG Grid Goal #1 Device : Other: [facility] RWx Distance : 20 ft Assist [...] Plan for Treatment : continue POC JO-ANN MILES, ARTURO - 10/07/2020 12:32 EDT Pain Assessment Pain Score During-Intervention : 6 Location : Legs, bilateral Pain Improved by : Medication, Relaxation, Repositioning Pain Comment : per nsg pt not due for pain meds at this time MILESKALAARTURO NORIEGA - 10/07/2020 12:32 EDT Image 1 - Images currently included in the form version of this document have not been included in the text rendition version of the form. Anticipated Discharge Needs, OT/PT Anticipated Discharge to : Unit, rehabilitation Recommend Continued Therapy at Discharge : Yes JO-ANN MILES PTA - 10/07/2020 12:[address] [facility] PT Charges SALES ORDER PROCESSOR PT Ther Activities Ea 15 Min-SALES ORDER PROCESSOR : 2 JO-ANN MILES PTA - 10/07/2020 12:32 EDT Electronically signed by Angela, [facility] Conversion Assurance Senior Cerner at 08/05/2022 9:06 AM CDT documented in this encounter Plan of Treatment Not on file documented as of this encounter Visit Diagnoses Not on filedocumented in this encounter
--- OUTSIDE RECORDS SUMMARY | 2025-04-03 09:31 | XMS_ITS | Encounter Summary ---
Author Organization [employer] ([place], [place], [place], [place], [place]) Address [address] [place] [address] Care Team Providers Care Diabetes Education Coordinator Name Role Phone Unavailable Primary Care Provider Unavailabl e Encounter Details Date Type Department Care Team (Late st Contact Info) Description 10/06/2020 Transcribed Document [facility] [place] [address] [place] [address] ProviderRadha MD [address] [place] [address] Social History Tobacco Use Types Packs/Day Years Used Date Smoking Tobacco: Never Assessed Comments Unknown Sex and Gender Information Value Date Recorded Sex Assigned at Not on file Legal Sex Female 7:21 PM CDT Gender Identity Not on file Sexual Orientation Not on file documented as of this encounter Miscellaneous Notes * Cerner Conversion Note - Radha Reed MD - 10/06/2020 1:55 PM CDT On Going Discharge Planning Entered On: 10/06/2020 13:57 EDT Performed On: 10/06/2020 13:55 EDT by KAROLINA PLEITEZ Rn-Farm Facility ManagerProject Coach Progress Note Discharge Arrangements : Patient Post-Acute Information Patient Name: LUH BOSCH Gender: Female : 62 Age: 59 Years Ruth Referral(s): Service: Organization: Business Address: Phone Number: [facility] [address] [place], [address] Discharge Options Discussed with Patient : Acute rehabilitation, Discharge transportation, DME, Home Health, Short term rehabilitation Barriers to Discharge Identified : Clinical Condition of Patient, Follow-Up appointments needed Barriers to Discharge Unresolved : Clinical Condition of Patient KAROLINA PLEITEZ Rn-Farm Facility Manager - 10/06/2020 13:55 EDT Narrative Progress Note Narrative Progress Note : Dr. Pemberton tells CM pt is ready to transition and is appropriate for precert to be initiated with short-term rehab; spoke with pt and she is in agreement to go to [facility]. [facility] and she will initiate the precert and confirm with Dr. Whittaker. Historical Progress Note : HD#5; ELOS 3; MRR; BOOST 7 - Generalized Edema/Anasarca = 02/2L; Vancomycin/Midodrine; declined to stand w/therapy - will need rehab r/t ongoing weakness; discussion w/pt's family about need for rehab - possible long-term placement if unable to progress; [facility] interested to discuss with MD; [facility] unable to meet pt's needs; continue to follow. KAROLINA PLEITEZ Rn-Farm Facility Manager - 10/06/20 08:58:40 Received call from pt's daughter Leslie Og and she requested referrals be sent to [facility] in [place], [place] ([email or web address]) and [facility] in [place], [place] ([email or web address]). KAROLINA PLEITEZ Rn-Farm Facility Manager - 10/05/20 15:28:00 HD#4; ELOS 3; MRR; BOOST 7 - GenEdema/Hypernatremia/Anasarca - 02=2L; B/P 105/58; PO Vancomycin; Midodrine 10 mg TID; lytes to be replaced; Nephrology has signed off; pt MaxAx2 w/therapy; updates sent thru [facility] to [facility] and left another message for f/u to confirm pt may return and anticipated turn around time for precert; DCP return for rehab; will likely require ambulance for transport; pt on transfer out of [facility]. KAROLINA PLEITEZ Rn-Farm Facility Manager - 10/05/20 13:37:58 HD#4; ELOS 3; MRR; BOOST 7 - GenEdema/Hypernatremia/Anasarca - 02=2L; B/P 105/58; PO Vancomycin; Midodrine 10 mg TID; lytes to be replaced; Nephrology has signed off; pt MaxAx2 w/therapy; updates sent thru [employer] to [facility] and left another message for f/u to confirm pt may return and anticipated turn around time for precert; DCP return for rehab; will likely require ambulance for transport; pt on transfer out of [facility]. Spoke with [facility] and advised they will be unable to meet patient's needs; referral cancelled. sophia Spoke with pt's son Kishore and advised pt may require long-term care placement; he will discuss options with his sister and advise CM; initial referrals sent thru [facility] to [place]; [facility]. KAROLINA PLEITEZ Rn-Farm Facility Manager - 10/05/20 13:54:46 HD#1; ELOS 3; MRR; BOOST 7 - GenEdema/Hypernatremia/Anasarca - improving - 02=2L; Levo gtt; Midodrine; IV Bumex; Nephrology - 24 hr urine to eval for nephrotic syndrome; +CDiff; Rocephin/Doxy/Vanc; ltd work w/therapy - refusing OOB and knee/hip AROM; pt needs to be encouraged; DCP rehab - left message for [facility] [phone] to confirm receipt of referral; pt will need precert. KAROLINA PLEITEZ Rn-Farm Facility Manager - 10/02/20 12:06:37 HD#1; ELOS 3; MRR; BOOST 7 - Transfer from [facility] for [facility]ized [facility]; Nephrology consult; [id number]; RA; Doxycycline/Rocephin; met w/pt's adult children Leslie Og and Kishore Bosch ([phone]) who states DCP will be return to [facility] for ongoing rehab; explained pt will require a precert; updates clinicals sent to [facility] and [facility] left for intake [phone]; [phone]. KAROLINA PLEITEZ Rn-Farm Facility Manager - 10/01/20 14:32:34 KAROLINA PLEITEZ Rn-Farm Facility Manager - 10/06/2020 13:55 EDT documented in this encounter Plan of Treatment Not on file documented as of this encounter Visit Diagnoses Not on filedocumented in this encounter
--- OUTSIDE RECORDS SUMMARY | 2025-04-03 09:31 | XMS_ITS | Encounter Summary ---
Author Organization [employer] ([place], [place], [place], [place], [place]) Address [address] [place] [address] Care Team Providers Care Vocational Trainer Name Role Phone Unavailable Primary Care Provider Unavailabl e Encounter Details Date Type Department Care Team (Late st Contact Info) Description 10/06/2020 Transcribed Document [facility] Radiology [address] [place] [address] Malu Pemberton MD [address] [place] [address] [address] Social History Tobacco Use Types [...]
--- OUTSIDE RECORDS SUMMARY | 2025-04-03 09:31 | XMS_ITS | Encounter Summary ---
Author Organization [employer] ([place], [place], [place], [place], [place]) Address [address] [place] [address] Care Team Providers Care Fence Post Cutter Name Role Phone Unavailable Primary Care Provider Unavailabl e Encounter Details Date Type Department Care Team (Late st Contact Info) Description 10/06/2020 Transcribed Document [facility] [place] Medicine [address] [place] [address] ProviderRadha MD [address] [place] [address] Social History Tobacco Use Types [...] On: 10/06/2020 8:55 EDT by KAROLINA PLEITEZ Rn-Chute TenderPlant Quality Manager Progress Note Discharge Arrangements : Patient [...] Meeting Medical Necessity : Yes KAROLINA PLEITEZ Rn-Chute Tender - 10/06/2020 8:55 EDT Narrative Progress Note Narrative Progress Note : HD#5; ELOS 3; MRR; BOOST 7 - Generalized Edema/Anasarca = 02/2L; Vancomycin/Midodrine; declined to stand w/therapy - will need rehab r/t ongoing weakness; discussion w/pt's family about need for rehab - possible long-term placement if unable to progress; [place] [facility] interested to discuss with MD; [facility] unable to meet pt's needs; continue to follow. Historical Progress Note : Received call from pt's daughter Leslie Og and she requested referrals be sent to [facility] in [place], [place] ([employer]) and [facility] in [place], [place] ([employer]). KAROLINA PLEITEZ Rn-Chute Tender - 10/05/20 15:28:00 HD#4; ELOS 3; MRR; BOOST 7 - GenEdema/Hypernatremia/Anasarca - 02=2L; B/P 105/58; PO Vancomycin; Midodrine 10 mg TID; lytes to be replaced; Nephrology has signed off; pt MaxAx2 w/therapy; [facility] and left another message for f/u to confirm pt may return and anticipated turn around time for precert; DCP return for rehab; will likely require ambulance for transport; pt on transfer out of [facility]. KAROLINA PLEITEZ Rn-Chute Tender - 10/05/20 13:37:58 HD#4; ELOS 3; MRR; BOOST 7 - GenEdema/Hypernatremia/Anasarca - 02=2L; B/P 105/58; PO Vancomycin; Midodrine 10 mg TID; lytes to be replaced; Nephrology has signed off; pt MaxAx2 w/therapy; updates sent thru [facility] to [facility] and left another message for f/u to [...] CM; [facility]. KAROLINA PLEITEZ, Rn-Chute Tender - 10/05/20 13:54:46 HD#1; ELOS 3; MRR; BOOST 7 - GenEdema/Hypernatremia/Anasarca - improving - 02=2L; Levo gtt; Midodrine; IV Bumex; Nephrology - 24 hr urine to eval for nephrotic syndrome; +CDiff; Rocephin/Doxy/Vanc; ltd work w/therapy - refusing OOB and knee/hip AROM; pt needs to be encouraged; DCP rehab - left message for [facility] [phone] to confirm receipt of referral; pt will need precert. KAROLINA PLEITEZ Rn-Chute Tender - 10/02/20 12:06:37 HD#1; ELOS 3; MRR; BOOST 7 - Transfer from [facility] for Generalized Edema; Nephrology consult; NM=[id number]; RA; Doxycycline/Rocephin; met w/pt's adult children Leslie Og and Kishore Bosch ([phone]) who states DCP will be return to [facility] for ongoing rehab; explained pt will require a precert; updates clinicals sent to [facility] and [facility] left for intake [phone]; [phone]. KAROLINA PLEITEZ Rn-Chute Tender - 10/01/20 14:32:34 KAROLINA PLEITEZ Rn-Chute Tender - 10/06/2020 8:55 EDT Electronically signed by Galen Miller Conversion Long Filler Cigar Roller Machine Linseyner at 08/02/2022 6:22 PM CDT documented in this encounter Plan of Treatment Not on file documented as of this encounter Visit Diagnoses Not on filedocumented in this encounter
--- OUTSIDE RECORDS SUMMARY | 2025-04-03 09:31 | XMS_ITS | Encounter Summary ---
Author Organization [employer] ([place], [place], [place], [place], [place]) Address [address] [place] [address] Care Team Providers Care Plant Changer Name Role Phone Unavailable Primary Care Provider Unavailabl e Encounter Details Date Type Department Care Team (Late st Contact Info) Description 10/07/2020 Transcribed Document [facility] Radiology [address] [place] [address] Malu Pemberton MD [address] [place] [address] [address] Social History Tobacco Use Types [...] 73 (OCT 07 09:00) MAP 71 (OCT 07:00) 66 (OCT 07 04:00) 89 (OCT 07 09:00) SpO2 98 (OCT 07:) 95 (OCT 06 19:00) 98 (OCT 07:00) General: Alert and oriented, No acute [...]
--- OUTSIDE RECORDS SUMMARY | 2025-04-03 09:31 | XMS_ITS | Encounter Summary ---
Author Organization [employer] ([place], [place], [place], [place], [place]) Address [address] [place] [address] Care Team Providers Care Antique Furniture Restorer Name Role Phone Unavailable Primary Care Provider Unavailabl e Encounter Details Date Type Department Care Team (Late st Contact Info) Description 09/30/2020 Transcribed Document [facility] [place] [address] [place] [address] ProviderRadha MD [address] [place] [address] Social History Tobacco Use Types [...]
--- OUTSIDE RECORDS SUMMARY | 2025-04-03 09:31 | XMS_ITS | Encounter Summary ---
Author Organization [employer] ([place], [place], [place], [place], [place]) Address [address] [place] [address] Care Team Providers Care Well Drill Operator Cable Tool Name Role Phone Unavailable Primary Care Provider Unavailabl e Encounter Details Date Type Department Care Team (Late st Contact Info) Description 10/06/2020 Transcribed Document [facility] [place] [address] [place] [address] ProviderRadha MD [address] [place] [address] Social History Tobacco Use Types [...]
--- OUTSIDE RECORDS SUMMARY | 2025-04-03 09:31 | XMS_ITS | Encounter Summary ---
Author Organization [employer] ([place], [place], [place], [place], [place]) Address [address] [place] [address] Care Team Providers Care Director Hydrogen Storage Engineering Name Role Phone Unavailable Primary Care Provider Unavailabl e Encounter Details Date Type Department Care Team (Late st Contact Info) Description 09/30/2020 Transcribed Document [facility] [place] [address] [place] [address] ProviderRadha MD [address] [place] [address] Social History Tobacco Use Types [...] Historical ProviderMD - 09/30/2020 2:00 AM CDT Firmware Software Verification Engineer Details Entered On: 09/30/2020 1:26 EDT Performed [...]
--- OUTSIDE RECORDS SUMMARY | 2025-04-03 09:31 | XMS_ITS | Encounter Summary ---
Author Organization [employer] ([place], [place], [place], [place], [place]) Address [address] [place] [address] Care Team Providers Care Slip Filler Name Role Phone Unavailable Primary Care Provider Unavailabl e Encounter Details Date Type Department Care Team (Late st Contact Info) Description 09/30/2020 Transcribed Document [facility] [place] [address] [place] [address] ProviderRadha MD [address] [place] [address] Social History Tobacco Use Types [...] Health Plan: [employer] Policy Number: [id number] Authorization Number: Insurance 2 Health Plan: MED[place]ID [place] Policy Number: [id number] Authorization Number: Insurance Primary Name : [employer] P[employer] Policy Number: [id number] Authorization Status-Primary : Awaiting callback Reference Number-Primary : [id number] Authorized Service Begin Date-Primary : 09/29/2020 EDT [...]
--- OUTSIDE RECORDS SUMMARY | 2025-04-03 09:31 | XMS_ITS | Patient Health Record ---
Author Organization [facility] Address [address] [place] [address] Care Team Providers Care [employer] Director Name Role Phone YoClarence Primary Care Provider [phone] Wendy Payne Unavailable [phone] Wendy Cortez Unavailable [phone] Migration, Provider Unavailable Unavailable Allergies Allergen (clinical [...] 0 IG% 0.5 NRBC# 0 IG# 0.05 M-Amylase Reviewed date:11/04/2024 06:13:19 PM Interpretation: Performing Lab: Notes/Report: NEEL 81 30-110 U/L M-Lipase Reviewed date:11/04/2024 06:13:23 PM Interpretation: Performing Lab: Notes/Report: LIP 210 23-300 U/L LIPID PANEL, STANDARD (7600) Reviewed date:02/12/2025 12:10:59 PM Interpretation: Performing Lab:CB, [facility]1355 [facility]te[facility], [facility] HospitalVxgaAF[address] Ajay Culver Notes/Report: NON-FASTING; NON-FASTING; NON-FASTING; NON-FASTING; NON-FAST FASTING:YES FASTING: YES CHOLESTEROL, TOTAL 119 <200 mg/dL HDL CHOLESTEROL 53 > OR = 50 mg/dL TRIGLYCERIDES 97 <150 mg/dL LDL-CHOLESTEROL 48 better accuracy than the Friedewald equation in the estimation of LDL-C. Floyd SS et al. NURA. 2013;310(19): 9089-2742 (http://education.[employer]com/faq/YQD736) Reference range: <100 Desirable range <100 mg/dL for primary prevention; <70 mg/dL for patients with CHD or diabetic patients with > or = 2 CHD risk factors. LDL-C is now calculated using the Floyd-Alaniz calculation, which is a validated novel method providing CHOL/HDLC RATIO 2.2 <5.0 (calc) NON HDL CHOLESTEROL 66 <130 mg/dL (calc) For patients with diabetes plus 1 major ASCVD risk factor, treating to a non-HDL-C goal of <100 mg/dL (LDL-C of <70 mg/dL) is considered a therapeutic option. COMPREHENSIVE METABOLIC PANE L (00640) Reviewed date:02/12/2025 12:10:59 PM Interpretation: Performing Lab:[facility]1355 [facility] Ajay Culver Notes/Report: NON-FASTING; NON-FASTING; NON-FASTING; NON-FASTING; [...] 9) Reviewed date:02/12/2025 12:10:59 PM Interpretation: Performing Lab:[facility] Zyvi3197 [facility] Ajay Culver Notes/Report: NON-FASTING; NON-FASTING; NON-FASTING; NON-FASTING; NON-FAST FASTING:YES FASTING: YES WHITE BLOOD CELL COUNT 6.2 3.8-10.8 Thousand/ uL RED BLOOD CELL COUNT 5.24 3.80-5.10 Million/uL HEMOGLOBIN 15.4 11.7-15.5 g/dL HEMATOCRIT 46.6 35.0-45.0 % MCV 88.9 80.0-100.0 fL MCH 29.4 27.0-33.0 pg MCHC 33.0 32.0-36.0 g/dL condition. For adults, a slight decrease in the calculated MCHC value (in the range of 30 to 32 g/dL) is most likely not clinically significant; however, it should be interpreted with caution in correlation with other red cell parameters and the patient's clinical RDW 12.9 11.0-15.0 % PLATELET COUNT 311 140-400 Thousand/uL MPV 10.3 7.5-12.5 fL ABSOLUTE NEUTROPHILS 3106 1753-8960 cells/uL ABSOLUTE LYMPHOCYTES 2151 850-3900 cells/uL ABSOLUTE MONOCYTES 515 200-950 cells/uL ABSOLUTE EOSINOPHILS 360 15-500 cells/uL ABSOLUTE BASOPHILS 68 0-200 cells/uL NEUTROPHILS 50.1 LYMPHOCYTES 34.7 MONOCYTES 8.3 EOSINOPHILS 5.8 BASOPHILS 1.1 HEMOGLOBIN A1c (496) Reviewed date:02/12/2025 12:10:59 PM Interpretation: Performing Lab:[facility] Oaaz[address] [employer], [facility] Technical Community CollegeZvbwUE[address] Ajay Culver Notes/Report: NON-FASTING; NON-FASTING; NON-FASTING; NON-FASTING; [...] diabetes for children. TSH W/REFLEX TO FT4 (67907) Reviewed date:02/12/2025 12:10:59 PM Interpretation: Performing Lab:[facility] [address], CaptualBircVC[address] Ajay Culver Notes/Report: NON-FASTING; NON-FASTING; NON-FASTING; NON-FASTING; NON-FAST FASTING:YES FASTING: YES TSH W/REFLEX TO FT4 1.19 0.40-4.50 mIU/L TSH W/REFLEX TO FT4 (90222) Reviewed date:08/30/2024 12:36:40 PM Interpretation: Performing Lab:[facility] Cija[address], [facility] HospitalYaoyFT[address] Ajay Culver Notes/Report: NON-FASTING; NON-FASTING; NON-FASTING; NON-FASTING; NON-FAST TSH W/REFLEX TO FT4 0.80 0.40-4.50 mIU/L VITAMIN B12 (927) Reviewed date:08/30/2024 12:36:40 PM Interpretation: Performing Lab:[facility] Xqum9549 [employer] ExpeditionskangRobert Wood Johnson [facility] Hospital [facility], [facility] HospitalHespIT[address] Ajay Culver Notes/Report: NON-FASTING; NON-FASTING; NON-FASTING; NON-FASTING; NON-FAST VITAMIN B12 720 847-8950 pg/mL C-REACTIVE PROTEIN (4420) Reviewed date:08/30/2024 12:36:40 PM Interpretation: Performing Lab:[facility] Mpxf[address]76 [address] [facility], [facility] HospitalRufdRB[address] Ajay Culver Notes/Report: NON-FASTING; NON-FASTING; NON-FASTING; NON-FASTING; NON-FAST C-REACTIVE PROTEIN <3.0 <8.0 mg/L CBC (INCLUDES DIFF/PLT) (639 9) Reviewed date:08/30/2024 12:36:40 PM Interpretation: Performing Lab:[facility] [id number] [address] [facility], [facility] HospitalKfrqRH[address] Ajay Culver Notes/Report: NON-FASTING; NON-FASTING; NON-FASTING; NON-FASTING; [...] MPV 10.3 7.5-12.5 fL ABSOLUTE NEUTROPHILS 4121 0352-0366 cells/uL ABSOLUTE LYMPHOCYTES 0877 206-4293 cells/uL ABSOLUTE MONOCYTES 483 200-950 cells/uL ABSOLUTE EOSINOPHILS 163 15-500 cells/uL ABSOLUTE BASOPHILS 68 0-200 cells/uL NEUTROPHILS 60.6 LYMPHOCYTES 28.9 MONOCYTES 7.1 EOSINOPHILS 2.4 BASOPHILS 1.0 CREATINE KINASE, TOTAL (374) Reviewed date:08/30/2024 12:36:40 PM Interpretation: Performing Lab:[facility], [facility] [address], [facility] HospitalAcqmWJ[address] Ajay Culver Notes/Report: NON-FASTING; NON-FASTING; NON-FASTING; NON-FASTING; NON-FAST CREATINE KINASE, TOTAL 53 20-243 U/L MAGNESIUM (622) Reviewed date:08/30/2024 12:36:40 PM Interpretation: Performing Lab:[facility] [id number] [address] [facility], [facility] HospitalTtltGO[address] Ajay Culver Notes/Report: NON-FASTING; NON-FASTING; NON-FASTING; NON-FASTING; NON-FAST MAGNESIUM 2.2 1.5-2.5 mg/dL COMPREHENSIVE METABOLIC PANE L (30137) Reviewed date:08/30/2024 12:36:40 PM Interpretation: Performing Lab:[facility] [address]ji[address], Bet[facility] HospitalXjokRH[address] Ajay Culver Notes/Report: NON-FASTING; NON-FASTING; NON-FASTING; NON-FASTING; [...] 16 10-35 U/L ALT 17 6-29 U/L TSH W/REFLEX TO FT4 (60242) Reviewed date:07/16/2024 10:06:22 AM Interpretation: Performing Lab:[facility] [id number], [place] HapaCX[address] Ajay Culver Notes/Report: NON-FASTING; NON-FASTING; NON-FASTING; NON-FASTING; NON-FAST TSH W/REFLEX TO FT4 0.86 0.40-4.50 mIU/L HEMOGLOBIN A1c (496) Reviewed date:07/16/2024 10:06:22 AM Interpretation: Performing Lab:[facility], [facility] CollegeDwntHS[address] Ajay Culver Notes/Report: NON-FASTING; NON-FASTING; NON-FASTING; NON-FASTING; [...] A1c for diagnosis of diabetes for children. MAGNESIUM (622) Reviewed date:07/16/2024 10:06:22 AM Interpretation: Performing Lab:[facility] [address]qur[address], CaptualWnulSA[address] Ajay Culver Notes/Report: NON-FASTING; NON-FASTING; NON-FASTING; NON-FASTING; NON-FAST MAGNESIUM 2.2 1.5-2.5 mg/dL CBC (INCLUDES DIFF/PLT) (639 9) Reviewed date:07/16/2024 10:06:22 AM Interpretation: Performing Lab:[facility] [place] [id number] [facility] ExpeditionsteRobert Wood Johnson [facility], [facility] CenterKnboSI[address] Ajay Culver Notes/Report: NON-FASTING; NON-FASTING; NON-FASTING; NON-FASTING; [...] MPV 10.2 7.5-12.5 fL ABSOLUTE NEUTROPHILS 5359 8302-2419 cells/uL ABSOLUTE LYMPHOCYTES 5533 714-9951 cells/uL ABSOLUTE MONOCYTES 491 200-950 cells/uL ABSOLUTE EOSINOPHILS 218 15-500 cells/uL ABSOLUTE BASOPHILS 62 0-200 cells/uL NEUTROPHILS 68.7 LYMPHOCYTES 21.4 MONOCYTES 6.3 EOSINOPHILS 2.8 BASOPHILS 0.8 LIPID PANEL, STANDARD (7600) Reviewed date:07/16/2024 10:06:22 AM Interpretation: Performing Lab:[facility] [id number] [address] [facility], [facility] HospitalWuqgVO[address] Ajay Culver Notes/Report: NON-FASTING; NON-FASTING; NON-FASTING; NON-FASTING; [...] of LDL-C. Floyd SS et al. NURA. 2013;310(00): 6593-2199 (http://education.[employer]/faq/WES969) CHOL/HDLC RATIO 2.6 <5.0 (calc) NON HDL CHOLESTEROL 72 <130 mg/dL (calc) For patients with diabetes plus 1 major ASCVD risk factor, treating to a non-HDL-C goal of <100 mg/dL (LDL-C of <70 mg/dL) is considered a therapeutic option. M-Comprehensive Metabolic Pa carlos Reviewed date:11/04/2024 06:13:29 [...] AGRATIO 1.3 1.1-1.8 ALP 84 38-126 U/L COMPREHENSIVE METABOLIC PANE L (97139) Reviewed date:07/16/2024 10:06:22 AM Interpretation: Performing Lab:CB, [facility] Uzll[address], Rubin HectorYbecUJ[address] Ajay Culver Notes/Report: NON-FASTING; NON-FASTING; NON-FASTING; NON-FASTING; [...] 16 10-35 U/L ALT 16 6-29 U/L M-Thyroid Stimulating Hormon e Reviewed date:04/11/2024 09:22:17 [...] 107 74-100 mg/dl CA 9.8 8.4-10.2 mg/dl CULTURE, URINE, ROUTINE (395 ) Reviewed date:10/14/2024 02:50:35 PM Interpretation: Performing Lab:[facility], [facility] Squw7718 MitteRobert Wood Johnson [facility], Bethes[facility] HospitalGguiYZ[address] Ajay Culver Notes/Report: CULTURE, URINE, ROUTINE SEE NOTE CULTURE, URINE, ROUTINE Micro Number: [id number] Test Status: Final Specimen Source: Urine Specimen Quality: Adequate Result: Non-uropathogenic Gram positive organism May represent colonizers from external and internal genitalia. No further testing (including susceptibility) will be performed. Urinalysis Reviewed date:10/09/2024 12:36:57 PM Interpretation: Performing Lab: Notes/Report: Color/Clarity yellow Leuk neg Nitrite neg Urobili 0.2 Protein 100 pH 5.5 Blood trace Sp. Gr. 1.025 Ketone neg Bili neg Glucose neg Medications Medication SIG (Take, Route, Frequency, Duration) Notes Start Date End Date Status Levothyroxine Sodium 50 MCG 1 tab(s) orally once a day; Duration: 90 days Active Bumetanide 1 MG 1 tab(s) orally 2 ti mes a day; Duration: 90 days Active MIDODRINE HYDROCHLORIDE 10 MG 1 TAB(S) ORALLY 3 TIMES A DAY NEEDED; Duration: 90 DAYS prn Active Farxiga 10 MG 1 tab(s) orally once a day; Duration: 90 days Active Dexcom G7 Sensor - as directed for CGM; Duration: 30 days DX: E11.69 02/10/2025 Active Spironolactone 25 MG 2 tabs orally once a day; Duration: 90 days Active Advair HFA 115 MCG-21 MCG 2 INH INHALED 2 TIMES A DAY Active Multivitamin - 1 tab(s) orally once a day Active Calcium 600 + D 600 MG-20 MCG 1 TAB(S) ORALLY 2 TIMES A DAY; Duration: 30 DAY(S) Active HumaLOG KwikPen 100 UNIT/ML 4 units subcutaneously 3 times a day with meals 09/28/2023 Active Omeprazole 40 MG 1 cap(s) orally once a day; Duration: 90 days Active Lantus 100 unit/mL INJECT 40 UNITS SUBCUTANEOUSLY ONCE A DAY; Duration: 25 Active Promethazine HCl 12.5 MG 1 tablet as needed Orally every 8 hours; Duration: 5 days As needed nausea. 10/09/2024 Active Potassium Chloride ER 10 mEq TAKE 2 CAPSULES BY MOUTH 2 TIMES A DAY; Duration: 30 Active Acetaminophen 500 MG 1 tablet orally sully ry 6 hours as needed for pain or fever 04/06/2021 Active tiZANidine HCl 2 mg TAKE 1 TABLET BY MARLENY TH 2 TIMES A DAY; Duration: 30 Active Dicyclomine HCl 20 MG 1 tab(s) orally ev eddi 6 hours as needed for stomach cramping or diarrhea; Duration: 10 days 07/26/2021 Active Famotidine 20 MG 1 tab(s) orally once a day (at bedtime); Duration: 90 days Active Cetirizine HCl 10 MG 1 tab(s) orally onc e a day; Duration: 30 days Active BD Pen Needle Brandy 2nd Gen 32G X 4 MM as directed once a day; Duration: 90 days 01/28/2025 Active Gabapentin 100 mg TAKE 2 CAPSULES BY MOUTH 2 TIMES A DAY; Duration: 30 02/02/2025 Active Atorvastatin Calcium 40 MG 1 tab(s) orally once a day; Duration: 90 days Active Montelukast Sodium 10 MG 1 tab(s) orally once a day; Duration: 90 days Active Nystop 323612 UNIT/GM 1 application Externally Twice a day; Duration: 10 days 02/10/2025 Active Diclofenac Sodium 1 % 2 grams applied topically 4 times a day to knees and prn; Duration: 30 days 04/06/2021 Active Senna Plus 8.6-50 MG 1 tablet orally 2 t imes a day as needed for constipation; Duration: 30 days Active Magnesium Oxide 400 MG 1 tab(s) orally o nce a day; Duration: 30 day(s) Active Dexcom G7 [employer] - as directed for CGM ; Duration: 30 days DX: E11.69 02/10/2025 Active Aspirin Low Dose 81 MG TAKE ONE TABLET B Y MOUTH ONCE A DAY Active Ozempic (2 MG/DOSE) 8 MG/3ML INJECT 2 MG SUBCUTANEOUSLY ONCE WEEKLY; Duration: 28 Active Immunizations Vaccine Route Administration Date Status [...] (Z68.33) Active confirmed Problem Information temporarily unavailable FPC (current) use of insulin (Z79.4) Active confirmed Problem Information temporarily unavailable Other chronic pain (G89.29) Active confirmed Problem Information temporarily unavailable BMI 39.0-39.9,adult (Z68.39) Active confirmed Problem Information temporarily unavailable FPC (current) use of insulin (Z79.4) Active confirmed [...] (M62.08) Active confirmed Vital Signs Heart Rate 78 /min 02/10/2025 Temperature 97.6 degrees Fahrenheit 02/10/2025 Blood pressure diastolic 64 mm Hg 02/10/2025 Height 62 in 02/10/2025 Blood pressure systolic 102 mm Hg 02/10/2025 Weight 187 lbs 02/10/2025 BMI 34.2 kg/m2 02/10/2025 Encounters Encounter Location Date Provider Diagnosis [facility] [address] [place], [place] [address] 07/20/2024 Provider Migration [facility] [address] [facility] [address] [place] [address] 04/09/2024 Wendy Payne Weight loss R63.4 ; Pre-syncope R55 and Elevated serum creatinine R79.89 [facility] [place] [address] [place] [address] 07/11/2024 Wendy Payne Type 2 diabetes mellitus with other specified complication E11.69 ; FPC (current) use of insulin Z79.4 ; Hypothyroidism E03.9 ; Nonalcoholic steatohepatitis (FULLER) K75.81 ; Muscle spasm M62.838 ; RLS (restless legs syndrome) G25.81 and Peripheral neuropathic pain M79.2 [facility] [place] [address] [place] [address] 08/28/2024 Wendy Diego Myalgia, multiple si natalia M79.18 and Muscle cramping R25.2 [facility] [place] [address] [place] [address] 09/30/2024 Wendyosbaldo Payne Muscle cramping R25. 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 of insulin Z79.4 ; Hypothyroidism E03.9 ; Nonalcoholic steatohepatitis (FULLER) K75.81 ; RLS (restless legs syndrome) G25.81 and Peripheral neuropathic pain M79.2 [facility] [place] [address] [place] [address] 10/09/2024 Wendy Diego Lower abdominal pain R10.30 and Viral gastroenteritis A08.4 [facility] [place] [address] [place] [address] 10/17/2024 Wendy Payne LUQ pain R10.12 and Nausea without vomiting R11.0 [facility] [place] [address] [place] [address] 11/11/2024 Wendy Panence Muscle cramping R25. 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 of insulin Z79.4 and Contusion of lesser toe of right foot without damage to nail, initial encounter S90.121A [facility] [address] [place] [address] 02/10/2025 Wendy Payen Muscle cramping R25. 2 ; Type 2 diabetes mellitus with other specified complication E11.69 ; FPC (current) use of insulin Z79.4 ; Hypothyroidism E03.9 ; Nonalcoholic steatohepatitis (FULLER) K75.81 ; RLS (restless legs syndrome) G25.81 ; Peripheral neuropathic pain M79.2 and Yeast dermatitis B37.2 [facility] [address] [facility] [address] [place] [address] 05/21/2024 Clarence Ram [facility] [address] [facility] [address] [place] [address] 08/20/2024 Wendy Kerry [facility] [address] [place] [address] 09/16/2024 Clarence Ram Type 2 diabetes mellitus with other specified complication E11.69 [facility] [place] [address] [facility] [address] [place] [address] 10/01/2024 Wendy Kerry [facility] [place] [address] [place] [address] 12/24/2024 Wendy Kerry LUQ pain R10.12 [facility] [address] [place] [address] 01/06/2025 Wendy Kerry [facility] [place] [address] [facility] [address] [place] [address] 01/28/2025 Wendy Kerry Type 2 diabetes mellitus with other specified complication E11.69 [facility] [address] [facility] [address] [place] [address] 02/10/2025 Wendy Kerry Assessments Encounter Date Diagnosis (ICD Code) Assessment Notes Treatment Notes Treatment Clinical Notes Section Notes 04/09/2024 Weight loss (ICD-10 - R63.4) 04/09/2024 Pre-syncope (ICD-10 - R55) Holter, echo, carotid Dopplers all without significant abnormalities. She reports improvement in symptoms. Again encouraged consistent p.o. intake, especially fluids. If this becomes problematic we will decrease the dose of her GLP-1 inhibitor. Repeat labs today. Return precautions reviewed 07/11/2024 Type 2 diabetes mellitus with other specified complication (ICD-10 - E11.69) No changes recommended to medication regimen unless indicated on lab results, goal A1C < 7. Eye exam UTD. Good candidate for diabetic shoes due to her recurring edema, callus formation, neuropathic pain. 08/28/2024 Muscle cramping (ICD-10 - R25.2) Start [...] with other specified complication (ICD-10 - E11.69) 07/11/2024 FPC (current) use of insulin (ICD-10 - Z79.4) 09/30/2024 Muscle cramping (ICD-10 - R25.2) lower [...] and symptoms are improved, no changes recommended 12/24/2024 LUQ pain (ICD-10 - R10.12) 01/28/2025 Type 2 diabetes mellitus with other specified complication (ICD-10 - E11.69) 02/10/2025 Type 2 diabetes mellitus with other specified complication (ICD-10 - E11.69) Recent labs were stable. goal A1C < 7. Eye exam UTD. Repeat labs today. Will also attempt to get coverage of CGM to help with monitoring and avoidance of complications such as hypoglycemia 02/10/2025 Muscle cramping (ICD-10 - R25.2) Continue good fluid intake and encoruaged regular stretching and muscle relaxer as needed 02/10/2025 FPC (current) use of insulin (ICD-10 - Z79.4) 11/11/2024 long term care phlebotomist (current) use of insulin (ICD-10 - Z79.4) 09/30/2024 Type 2 diabetes mellitus with other specified complication (ICD-10 - E11.69) Recent labs were stable. goal A1C < 7. Eye exam UTD. Good candidate for diabetic shoes due to her recurring edema, callus formation, neuropathic pain. 07/11/2024 Hypothyroidism (ICD-10 - E03.9) continue replacement 04/09/2024 Elevated serum creatinine (ICD-10 - R79.89) 07/11/2024 Nonalcoholic steatohepatitis (FULLER) (ICD-10 - K75.81) continue dietary and weight loss efforts 11/11/2024 Contusion of lesser toe of right foot without damage to nail, initial encounter (ICD-10 - S90.121A) skin intact, discussed rest/ice and monitor for complications 09/30/2024 long term care phlebotomist (current) use of insulin (ICD-10 - Z79.4) 02/10/2025 Hypothyroidism (ICD-10 - E03.9) continue replacement 02/10/2025 Nonalcoholic steatohepatitis (FULLER) (ICD-10 - K75.81) continue dietary and weight loss efforts 07/11/2024 Muscle spasm (ICD-10 - M62.838) 09/30/2024 Hypothyroidism (ICD-10 - E03.9) continue replacement 07/11/2024 RLS (restless legs syndrome) (ICD-10 - G25.81) low dose gabapentin 09/30/2024 Nonalcoholic steatohepatitis (FULLER) (ICD-10 - K75.81) continue dietary and weight loss efforts 02/10/2025 RLS (restless legs syndrome) (ICD-10 - G25.81) low dose gabapentin 02/10/2025 Peripheral neuropathic pain (ICD-10 - M79.2) 09/30/2024 RLS (restless legs syndrome) (ICD-10 - G25.81) low dose gabapentin 07/11/2024 Peripheral neuropathic pain (ICD-10 - M79.2) 09/30/2024 Peripheral neuropathic pain (ICD-10 - M79.2) 02/10/2025 Yeast dermatitis (ICD-10 - B37.2) Plan Of Treatment Pending Test Test Name Order Date Microalbumin (In-House) 02/10/2025 Physical Therapy 06/20/2017 Physical Therapy 08/11/2014 Physical Therapy 07/15/2009 Mammogram : Bilateral 02/09/2024 [...] FERRITIN PANEL (5616) 12/2023 COMPREHENSIVE METABOLIC PANEL (29969) BASIC METABOLIC PANEL (12570) 07/25/2023 VITAMIN D,25-OH,TOTAL,IA (40249) 025 Future Test Test Name Order Date C-BASIC METABOLIC 01/22/2016 H-CBC with AUTO DIFF 07/16/2016 H-CMP 07/16/2016 H-LIPID PANEL 07/16/2016 H-HGBA1C 07/16/2016 H-SED RATE 07/16/2016 C-CMP 09/20/2016 C-LIPID PANEL 09/20/2016 C-HGBA1C 09/20/2016 Next Appt Details Provider Name:Wendy Chahal ce, 05/12/2025 10:00:00 AM, [address], [place], [address], Insurance Providers Payer Name Payer Address Payer Phone Subscriber Number Group Number Insured Name Patient Relationship to Insured Coverage Start Date Coverage End Date [employer] D[employer] [address] [address] [place] [address] [id number] Luh Bosch Self - patient is the [...]
--- OUTSIDE RECORDS SUMMARY | 2025-04-03 09:31 | XMS_ITS | Encounter Summary ---
Author Organization [employer] ([place], [place], [place], [place], [place]) Address [address] [place] [address] Care Team Providers Care Production Stage Manager Name Role Phone Unavailable Primary Care Provider Derrell rose Encounter Details Date Type Department Care Team (Late st Contact Info) Description 09/30/2020 Transcribed Document [facility] Family Medicine [address] [place] [address] ProviderRadha MD [address] [place] [address] Social History Tobacco Use Types [...] Rocephin: 1 Gram, 100 mL/Hr, IV Piggyback, [id number] Roxicodone: 5 mg, Oral, Q4H, PRN: Pain [...] 40 mg, Oral, Daily Documented Medications Documented Bynileremarcella BCise 2 mg/0.85 mL subcutaneous suspension, extended release: 0 Refill(s) Flovent Diskus 100 mcg/inh inhalation powder: 2 Puff, Inhalation, BID, 60 Each, 0 Refill(s) Potassium Chloride (Gtr-Bogh-Ftz 10) 10 mEq oral tablet, extended release: [...] History of obstructive sleep apnea / IMO [id number] / Confirmed, Active Problems (1) History of obstructive sleep apnea Physical Examination VS/Measurements Vitals Signs (last 24 hrs) Last Charted Minimum Maximum Temp 97.6 (SEP 30 05:00) 97.6 (SEP 30:) 97.4 (SEP 29:) Mon HR 110 (SEP 30:09) 110 (SEP 30:) 126 (SEP 29:) Resp Rate 20 (SEP 30:09) 20 (SEP 29:) 20 (SEP 29:) SBP [...]
--- OUTSIDE RECORDS SUMMARY | 2025-04-03 09:31 | XMS_ITS | Encounter Summary ---
Author Organization [employer] ([place], [place], [place], [place], [place]) Address [address] [place] [address] Care Team Providers Care Restaurant Maintenance Technician Name Role Phone Unavailable Primary Care Provider Unavailabl e Encounter Details Date Type Department Care Team (Late st Contact Info) Description 09/30/[address] [facility] [place] Family Medicine [address] [place] [address] ProviderRadha MD [address] [place] [address] Social History Tobacco Use [...] gross volume overload, has been transferred to [facility] from [facility] with hyponatremia. The patient has been [...] or illicit drug use. Currently lives at halfway. FAMILY HISTORY: Dad currently from [place]. No family history of kidney disease. PHYSICAL [...] pedal edema. No cyanosis. Peripheral pulses palpable. LINKER UP: No focal deficit noted grossly. Cranial nerves [...] We will follow along with other physicians. /[id number] Anabel Spring MD MA/JOHANNA / NGUYỄN / MODL /[id number] Electronically signed by Angela, [facility] Conversion Beater Engineer Helper Cerner at 08/02/2022 6:13 PM CDT documented in this encounter Plan of Treatment Not on file documented as of this encounter Visit Diagnoses Not on filedocumented in this encounter
--- OUTSIDE RECORDS SUMMARY | 2025-04-03 09:31 | XMS_ITS | Encounter Summary ---
Author Organization [employer] ([place], [place], [place], [place], [place]) Address [address] [place] [address] Care Team Providers Care Manager Diesel Name Role Phone Unavailable Primary Care Provider Unavailabl e Encounter Details Date Type Department Care Team (Late st Contact Info) Description 09/30/2020 Transcribed Document [facility] [place] [address] [place] [address] ProviderRadha MD [address] [place] [address] Social History Tobacco Use [...] Health Plan: [employer] PPO Policy Number: [id number] Authorization Number: Insurance 2 Health Plan: MEDICAID [place] Policy Number: [id number] Authorization Number: Insurance Primary Name : [employer] PPO Policy Number: [id number] Authorization Status-Primary : Awaiting callback Authorized Service Begin Date-Primary : 09/29/2020 EDT Historical Authorization Comments-Primary : No Authorization Comments Found Daisy Davison Rn-Utilization Review - 09/30/2020 13:07 EDT Electronically signed by Angela [facility] Conversion Spot Welder Line Cerner at 08/02/2022 6:26 PM CDT documented in this encounter Plan of Treatment Not on file documented as of this encounter Visit Diagnoses Not on filedocumented in this encounter
--- OUTSIDE RECORDS SUMMARY | 2025-04-03 09:31 | XMS_ITS | Encounter Summary ---
Author Organization [employer] ([place], [place], [place], [place], [place]) Address [address] [place] [address] Care Team Providers Care Rheumatologist Name Role Phone Unavailable Primary Care Provider Unavailabl e Encounter Details Date Type Department Care Team (Late st Contact Info) Description 09/30/2020 Transcribed Document [facility] [place] Family Medicine [address] [place] [address] ProviderRadha MD [address] [place] [address] Social History Tobacco Use Types [...] 09/30: Rec'd consult for BMI>40 (BMI=63.4) + MD consult for malnutrition. Spoke w/ pt today; reports okay appetite and eating ~50% of her meals. 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
== END 2025-04-03 23:59 | disposition home or self-care (01) ==
LOC: RAD 09:18
PROVIDERS: PCP Nurse Practitioner Family; Visit Provider Nurse Practitioner Family
DX: Z12.31 Encounter for screening mammogram for malignant neoplasm of breast (principal); R92.323 Mammographic fibroglandular density, bilateral breasts; R92.1 Mammographic calcification found on diagnostic imaging of breast; Z13.820 Encounter for screening for osteoporosis; Z78.0 Asymptomatic menopausal state; M85.88 Other specified disorders of bone density and structure, other site
CPT/HCPCS: 77063; 77067; 77080

== ENCOUNTER 2025-04-03 10:22 | Outpatient (CLI) | payer MEDICARE, MEDICAID, SELFPAY ==
--- OUTSIDE RECORDS SUMMARY | 2024-07-20 16:30 | XMS_ITS ---
Author Organization [facility] Address [address] [place] [address] Care Team Providers Care Psychiatric Therapist Name Role Phone Clarence Ram Primary Care Provider Migration, Provider Unavailable Unavailable Allergies Allergen (clinical drug ingredient) Drug/Non Drug Allergy documented on EMR Reaction Allergy Type Onset Date Status Fish FISH (uncoded) Unknown Allergy Activ e hydromorphone Dilaudid Unknown Drug Allergy Act caro morphine Morphine Unknown Drug Allergy Active Penicillin Unknown Drug Allergy Active REASON FOR VISIT [facility] To [facility] Conversion Encounter Medications Medication SIG (Take, Route, Frequency, Duration) Notes Start Date End Date Status Bumetanide 1 MG Tablet 1 tab(s) orally 2 times a day; Duration: 90 days Active MIDODRINE HYDROCHLORIDE 10 MG TABLET 1 TAB(S) ORALLY 3 TIMES A DAY NEEDED; Duration: 90 DAYS prn *Please review for potential replacement for e-prescription and drug interaction check* Active Levothyroxine Sodium 50 MCG Tablet 1 tab(s) orally once a day; Duration: 90 days Active OZEMPIC 8 MG/3 ML (2 MG DOSE) SOLUTION 2 MG SUBCUTANEOUSLY ONCE A WEEK; Duration: 28 DAYS *Please review for potential replacement for e-prescription and drug interaction check* Active Potassium Chloride ER 10 MEQ Capsule Extended Release 2 cap(s) orally 2 times a day; Duration: 90 days Active Farxiga 10 MG Tablet 1 tab(s) orally onc e a day; Duration: 90 days Active Spironolactone 25 MG Tablet 2 tabs orally once a day; Duration: 90 days Active Montelukast Sodium 10 MG Tablet 1 tab(s) orally once a day; Duration: 90 days Active Omeprazole 40 MG Capsule Delayed Release 1 cap(s) orally once a day; Duration: 90 days Active Gabapentin 100 MG Capsule 2 caps orally 2 times a day; Duration: 30 day(s) 01/31/2024 Active PRODIGY NO CODING TEST STRIPS NA NA FOR DIABETIC TESTING FINGERSTICK FOUR TIMES DAILY; Duration: 90 DAYS *Please review for potential replacement for e-prescription and drug interaction check* 04/30/2021 Active Aspirin Low Dose 81 MG Tablet Delayed Release TAKE ONE TABLET BY MOUTH ONCE A DAY Active Atorvastatin Calcium 40 MG Tablet 1 tab(s) orally once a day; Duration: 90 days Active HumaLOG KwikPen 100 UNIT/ML Solution Pen-injector 4 units subcutaneously 3 times a day with meals; Duration: 30 days 09/28/2023 Active Lantus 100 UNIT/ML Solution 35 units subcutaneously once a day; Duration: 30 days 09/04/2023 Active Diclofenac Sodium 1 % Gel 2 grams applied topically 4 times a day to knees and prn; Duration: 30 days 04/06/2021 Active Senna Plus 8.6-50 MG Tablet 1 tablet orally 2 times a day as needed for constipation; Duration: 30 days Active Famotidine 20 MG Tablet 1 tab(s) orally once a day (at bedtime); Duration: 90 days Active Cetirizine HCl 10 MG Tablet 1 tab(s) orally once a day; Duration: 30 days Active Magnesium Oxide 400 MG Tablet 1 tab(s) orally once a day; Duration: 30 day(s) Active Advair HFA 115 MCG-21 MCG AEROSOL 2 INH INHALED 2 TIMES A DAY *Please review and pick correct strength-formulat ion from [employer] options. If intended option is not shown, discontinue and re-order from Quick Search* Active Acetaminophen 500 MG Tablet 1 tablet orally every 6 hours as needed for pain or fever 04/06/2021 Active Dicyclomine HCl 20 MG Tablet 1 tab(s) orally every 6 hours as needed for stomach cramping or diarrhea; Duration: 10 days 07/26/2021 Active Multivitamin - Tablet 1 tab(s) orally on ce a day Active Calcium 600 + D 600 MG-20 MCG TABLET 1 TAB(S) ORALLY 2 TIMES A DAY; Duration: 30 DAY(S) *Please review and pick correct strength-formulat ion from [employer] options. If intended option is not shown, discontinue and re-order from Quick Search* Active Encounters Encounter Location Date Provider Diagnosis [facility] [address] [place] [address] 07/20/2024 Provider Migration Plan Of Treatment Next Appt Details Provider Name:Wendy Chahal ce, 05/12/2025 10:00:00 AM, [address], [address], [place], [place], [address], Progress Notes * HIROLuhDOB:1960 ( 64 yo F)Acc No.[id number]:07/20/2024 Patient: Luh Mirza Provider: Hunter torres Migration :1960 A ge:63 Y S ex:Female Date:07/20/2024 Address:[facility] , [address], [place] [place] [id number] Pcp:Clarence Ram Subjective: * Chief Complaints: * M ultum To Medispan Conversion Encounter * Medications: T akingAdvair HFA 115 MCG-21 MCG AEROSOL 2 INH INHALED 2 TIMES A DAY , Notes to Pharmacist: *Please review and pick correct strength-formulation from [employer] options. If intended option is not shown, discontinue and re-order from Quick Search*Multivitamin - Tablet 1 tab(s) orally once a day Calcium 600 + D 600 MG- 20 MCG TABLET 1 TAB(S) ORALLY 2 TIMES A DAY , Notes to Pharmacist: *Please review and pick correct strength-formulation from [employer] options. If intended option is not shown, discontinue and re-order from Quick Search*Acetaminophen 500 MG Tablet 1 tablet orally every 6 hours as needed for pain or fever Dicyclomine HCl 20 MG Tablet 1 tab(s) orally every 6 hours as needed for stomach cramping or diarrhea Famotidine 20 MG Tablet 1 tab(s) orally once a day (at bedtime) Cetirizine HCl 10 MG Tablet 1 tab(s) orally once a day Diclofenac Sodium 1 % Gel 2 grams applied topically 4 times a day to knees and prn Senna Plus 8.6-50 MG Tablet 1 tablet orally 2 times a day as needed for constipation Magnesium Oxide 400 MG Tablet 1 tab(s) orally once a day PRODIGY NO CODING TEST STRIPS NA NA FOR DIABETIC TESTING FINGERSTICK FOUR TIMES DAILY , Notes to Pharmacist: *Please review for potential replacement for e- prescription and drug interaction check*Aspirin Low Dose 81 MG Tablet Delayed Release TAKE ONE TABLET BY MOUTH ONCE A DAY HumaLOG KwikPen 100 UNIT/ML Solution Pen-injector 4 units subcutaneously 3 times a day with meals Lantus 100 UNIT/ML Solution 35 units subcutaneously once a day Atorvastatin Calcium 40 MG Tablet 1 tab(s) orally once a day Gabapentin 100 MG Capsule 2 caps orally 2 times a day Montelukast Sodium 10 MG Tablet 1 tab(s) orally once a day Omeprazole 40 MG Capsule Delayed Release 1 cap(s) orally once a day Farxiga 10 MG Tablet 1 tab(s) orally once a day Spironolactone 25 MG Tablet 2 tabs orally once a day Levothyroxine Sodium 50 MCG Tablet 1 tab(s) orally once a day Bumetanide 1 MG Tablet 1 tab(s) orally 2 times a day MIDODRINE HYDROCHLORIDE 10 MG TABLET 1 TAB(S) ORALLY 3 TIMES A DAY NEEDED , Notes to Pharmacist: prn *Please review for potential replacement for e-prescription and drug interaction check*OZEMPIC 8 MG/3 ML (2 MG DOSE) SOLUTION 2 MG SUBCUTANEOUSLY ONCE A WEEK , Notes to Pharmacist: *Please review for potential replacement for e-prescription and drug interaction check*Potassium Chloride ER 10 MEQ Capsule Extended Release 2 cap(s) orally 2 times a day Taking Advair HFA 115 MCG-21 MCG AEROSOL 2 INH INHALED 2 TIMES A DAY , Notes to Pharmacist: *Please review and pick correct strength-formulation from [employer] options. If intended option is not shown, discontinue and re-order from Quick Search*Taking Multivitamin - Tablet 1 tab(s) orally once a day Taking Calcium 600 + D 600 MG-20 MCG TABLET 1 TAB(S) ORALLY 2 TIMES A DAY , Notes to Pharmacist: *Please review and pick correct strength- formulation from [employer] options. If intended option is not shown, discontinue and re-order from Quick Search*Taking Acetaminophen 500 MG Tablet 1 tablet orally every 6 hours as needed for pain or fever Taking Dicyclomine HCl 20 MG Tablet 1 tab(s) orally every 6 hours as needed for stomach cramping or diarrhea Taking Famotidine 20 MG Tablet 1 tab(s) orally once a day (at bedtime) Taking Cetirizine HCl 10 MG Tablet 1 tab(s) orally once a day Taking Diclofenac Sodium 1 % Gel 2 grams applied topically 4 times a day to knees and prn Taking Senna Plus 8.6-50 MG Tablet 1 tablet orally 2 times a day as needed for constipation Taking Magnesium Oxide 400 MG Tablet 1 tab(s) orally once a day Taking PRODIGY NO CODING TEST STRIPS NA NA FOR DIABETIC TESTING FINGERSTICK FOUR TIMES DAILY , Notes to Pharmacist: *Please review for potential replacement for e-prescription and drug interaction check*Taking Aspirin Low Dose 81 MG Tablet Delayed Release TAKE ONE TABLET BY MOUTH ONCE A DAY Taking HumaLOG KwikPen 100 UNIT/ML Solution Pen-injector 4 units subcutaneously 3 times a day with meals Taking Lantus 100 UNIT/ML Solution 35 units subcutaneously once a day Taking Atorvastatin Calcium 40 MG Tablet 1 tab(s) orally once a day Taking Gabapentin 100 MG Capsule 2 caps orally 2 times a day Taking Montelukast Sodium 10 MG Tablet 1 tab(s) orally once a day Taking Omeprazole 40 MG Capsule Delayed Release 1 cap(s) orally once a day Taking Farxiga 10 MG Tablet 1 tab(s) orally once a day Taking Spironolactone 25 MG Tablet 2 tabs orally once a day Taking Levothyroxine Sodium 50 MCG Tablet 1 tab(s) orally once a day Taking Bumetanide 1 MG Tablet 1 tab(s) orally 2 times a day Taking MIDODRINE HYDROCHLORIDE 10 MG TABLET 1 TAB(S) ORALLY 3 TIMES A DAY NEEDED , Notes to Pharmacist: prn *Please review for potential replacement for e-prescription and drug interaction check*Taking OZEMPIC 8 MG/3 ML (2 MG DOSE) SOLUTION 2 MG SUBCUTANEOUSLY ONCE A WEEK , Notes to Pharmacist: *Please review for potential replacement for e-prescription and drug interaction check*Taking Potassium Chloride ER 10 MEQ Capsule Extended Release 2 cap(s) orally 2 times a day * Allergies: M orphinePenicillinDilaudidFISH Billing Information: * Procedure Codes: * Electronic signature of Prov ider Migration on 04/14/2025 at 11:16 AM EST Sign off status: Pending * Provider: Hunter torres Migration Date: 0 07/20/2024 Generated for Tomasa alarcon/Christian/Alie on: 1 11:16 AM EST
[2025-04-13 20:35] LABS: Coronavirus 19, PCR Not Detected (NotDetected); Influenza A, PCR Not Detected (NotDetected); Influenza B, PCR Not Detected (NotDetected)
--- OUTSIDE RECORDS SUMMARY | 2025-04-14 11:15 | XMS_ITS | Encounter Summary ---
Author Organization [email or web address] ([place], [place], [place], [place], [place]) Address [address] [place] [address] Care Team Providers Care Is/It Project Manager Name Role Phone Unavailable Primary Care Provider Unavailabl e Encounter Details Date Type Department Care Team (Late st Contact Info) Description 10/01/2020 Transcribed Document [facility] [place] Family Medicine [address] [place] [address] ProviderRadha MD [address] [place] [address] Social History Tobacco Use Types [...] pedal edema. No cyanosis. Peripheral pulses palpable. SOFTWARE DATABASE ARCHITECT: No focal deficit noted grossly. Cranial nerves [...] - Medical Enoxaparin 40 mg, SubCutaneous, Inj, [id number], Routine, Start 09/30/20 12:00:00 EDT, 09/30/20 11:44:00 [...] Daily Lovenox, 40 mg= 0.4 mL, SubCutaneous, [id number] magnesium sulfate, 2 Gram= 50 mL, IV [...] 284 mOsm/kg 10/01/2020 05:49 EDT Protein Ur Pocola 112 mg/dL 10/01/2020 05:49 EDT Sodium Ur Pocola 18 mMole/Liter 10/01/2020 05:49 EDT Urea Nitrogen Urine Random 390 mg/dL 10/01/2020 05:49 EDT CK 55 Units/Liter 09/30/2020 13:13 EDT Urine Type U Cath 10/01/2020 05:49 EDT Urine Color RED2 10/01/2020 05:49 EDT Urine Appearance TURBID2 (Abnormal) 10/01/2020 05:49 EDT Urine Specific [place] 1.015 10/01/2020 05:49 EDT Urine pH Dipstick [...]
--- OUTSIDE RECORDS SUMMARY | 2025-04-14 11:15 | XMS_ITS | Encounter Summary ---
Author Organization [employer] ([place], [place], [place], [place], [place]) Address [address] [place] [address] Care Team Providers Care Die Operator Name Role Phone Unavailable Primary Care Provider Unavailabl e Encounter Details Date Type Department Care Team (Late st Contact Info) Description 10/09/2020 Transcribed Document [facility] [place] Family Medicine [address] [place] [address] ProviderRadha MD [address] [place] [address] Social History Tobacco Use [...] Historical ProviderMD - 10/09/2020 2:00 AM CDT Silk Conditioner Details Entered On: 10/09/2020 1:08 EDT Performed [...]
--- OUTSIDE RECORDS SUMMARY | 2025-04-14 11:15 | XMS_ITS | Encounter Summary ---
Author Organization [employer] ([place], [place], [place], [place], [place]) Address [address] [place] [address] Care Team Providers Care Air Motor Repairer Name Role Phone Unavailable Primary Care Provider Unavailabl e Encounter Details Date Type Department Care Team (Late st Contact Info) Description 10/01/2020 Transcribed Document [facility] [place] [address] [place] [address] ProviderRadha MD [address] [place] [address] Social History Tobacco Use Types [...] JR DILLON, PT - 10/01/2020 12:30 EDT Electronically signed by Angela [facility] Conversion Pin Ticket Machine Operator Cerner at 08/02/2022 6:02 PM CDT documented in this encounter Plan of Treatment Not on file documented as of this encounter Visit Diagnoses Not on filedocumented in this encounter
--- OUTSIDE RECORDS SUMMARY | 2025-04-14 11:16 | XMS_ITS | Encounter Summary ---
Author Organization [employer] ([place], [place], [place], [place], [place]) Address [address] [place] [address] Care Team Providers Care Cad Draftsman Name Role Phone Unavailable Primary Care Provider Unavailabl e Encounter Details Date Type Department Care Team (Late st Contact Info) Description 10/12/2020 Transcribed Document [facility] [place] Family Medicine [address] [place] [address] ProviderRadha MD [address] [place] [address] Social History Tobacco Use Types [...] 27) 3.5 (CLAUDIA 25) 3.9 (CLAUDIA 24) Cl [...] patient stable for discharge anticipated discharge disposition: [facility] Samantha Melendez Hospitalist pager- [phone] Electronically signed by Angela [facility] Conversion Canvas Worker Cerner at 08/02/2022 6:02 PM CDT documented in this encounter Plan of Treatment Not on file documented as of this encounter Visit Diagnoses Not on filedocumented in this encounter
--- OUTSIDE RECORDS SUMMARY | 2025-04-14 11:16 | XMS_ITS | Encounter Summary ---
Author Organization [employer] ([place], [place], [place], [place], [place]) Address [address] [place] [address] Care Team Providers Care Duco Polisher Name Role Phone Unavailable Primary Care Provider Unavailabl e Encounter Details Date Type Department Care Team (Late st Contact Info) Description 10/13/2020 Transcribed Document [facility] [place] Family Medicine [address] [place] [address] ProviderRadha MD [address] [place] [address] Social History Tobacco Use Types [...] On: 10/13/2020 8:47 EDT by PADMA GOMEZ, Unit Controller-Bessemer Regulator Final Discharge Planning Is Patient High/Moderate Readmission Risk? : Yes Patient/Family Notified of Plan : Yes Support Person/Pt Rep Notified of Plan : Yes Is Patient Ready for Discharge? : Yes Physician Notified Patient is Ready for Discharge? : Yes Discharge To Care Management : SNF with Medicare Certification-03 PADMA GOMEZ, Unit Controller-Bessemer Regulator - 10/13/2020 8:49 EDT Discharge Arrangements : [...] Up Appointment Scheduled : No PADMA GOMEZ, Unit Controller-Bessemer Regulator - 10/13/2020 8:47 EDT Final Narrative Note Final Narrative Note : Patient is a moderate readmission risk. Patient is discharging to [facility] today at 11 by [facility]. Patient stated that her family is aware. No other needs identified. PADMA GOMEZ, Unit Controller-Bessemer Regulator - 10/13/2020 8:49 EDT documented in this encounter Plan of Treatment Not on file documented as of this encounter Visit Diagnoses Not on filedocumented in this encounter
--- OUTSIDE RECORDS SUMMARY | 2025-04-14 11:16 | XMS_ITS | Encounter Summary ---
Author Organization [employer] ([place], [place], [place], [place], [place]) Address [address] [place] [address] Care Team Providers Care Cotton Picker Name Role Phone Unavailable Primary Care Provider Unavailabl e Encounter Details Date Type Department Care Team (Late st Contact Info) Description 10/09/[address] [facility] [place] Family Medicine [address] [place] [address] ProviderRadha MD [address] [place] [address] Social History Tobacco Use [...]
--- OUTSIDE RECORDS SUMMARY | 2025-04-14 11:16 | XMS_ITS | Encounter Summary ---
Author Organization [employer] ([place], [place], [place], [place], [place]) Address [address] [place] [address] Care Team Providers Care Towerman Name Role Phone Unavailable Primary Care Provider Unavailabl e Encounter Details Date Type Department Care Team (Late st Contact Info) Description 10/04/2020 Transcribed Document [facility] [facility] [place] [address] [place] [address] ProviderRadha MD [address] [place] [address] Social History Tobacco Use Types [...]
--- OUTSIDE RECORDS SUMMARY | 2025-04-14 11:16 | XMS_ITS | Encounter Summary ---
Author Organization [employer] ([place], [place], [place], [place], [place]) Address [address] [place] [address] Care Team Providers Care Compressed Yeast Supervisor Name Role Phone Unavailable Primary Care Provider Unavailabl e Encounter Details Date Type Department Care Team (Late st Contact Info) Description 10/12/2020 Transcribed Document [facility] [place] Family Medicine [address] [place] [address] ProviderRadha MD [address] [place] [address] Social History Tobacco Use Types [...] On: 10/12/2020 12:16 EDT by BHARGAVI MEYER, RN-Adult Family Home Program ManagerInstrument Repairer Steam Plant Progress Note Discharge Arrangements : Patient Post-Acute Information Patient Name: LUH BOSCH Gender: Female : 62 Age: 59 Years No Post-Acute Placement(s) Listed No Post-Acute Service(s) Listed No Curaspan Referral(s) Listed Discharge Options Discussed with Patient : Acute rehabilitation, Discharge transportation, DME, Home Health, Short term rehabilitation Barriers to Discharge Identified : No [facility] bed available Barriers to Discharge Unresolved : No [facility] bed available, Other: precert Is the Patient Meeting Medical Necessity : No Did you Document Avoidable Days? : Yes Did you Attend Multidisciplinary Rounds? : Yes BHARGAVI MEYER, RN-Adult Family Home Program Manager - 10/12/2020 12:16 EDT Narrative Progress Note Narrative Progress Note : ELOS 3, hospital day 912 RRS 59 Rebecca updated per mariama. For hopeful precert initiated at [facility]. EMS arranged for 10/14@1100, trip # [id number]. Bariatric bed and bariatric stretcher requested at snf and ems. Historical Progress Note : ELOS 3, hospital day 8, RRS 59, she needs a skilled nursing care skilled bed, referrals sent to Mariama mcarthur with [facility] assessing for bariatric bed at [facility] or [facility] LIAM COWAN Rn-Adult Family Home Program Manager - 10/08/20 17:55:50 Received call from [facility] [phone] advising CM their facility is unable to meet pt's needs - r/t C-Diff; weight - non-ambulatory w/ bed activity; pt on transfer to [facility] - notified CM. KAROLINA PLEITEZ Rn-Adult Family Home Program Manager - 10/07/20 11:01:00 HD#6; ELOS 3; MRR; BOOST 7 - GenEdema/Anasarca; received voice mail from [facility] - DON requesting additional clinical information - faxed this am; awaiting return call to confirm precert has been initiated. KAROLINA PLEITEZ Rn-Adult Family Home Program Manager - 10/07/20 07:45:25 Dr. Pemberton tells CM pt is ready to transition and is appropriate for precert to be initiated with short-term rehab; spoke with pt and she is in agreement to go to [facility]. Contacted [facility] and she will initiate the precert and confirm with Dr. Whittaker. KAROLINA PLEITEZ Rn-Adult Family Home Program Manager - 10/06/20 13:57:22 HD#5; ELOS 3; MRR; BOOST 7 - Generalized Edema/Anasarca = 02/2L; Vancomycin/Midodrine; declined to stand w/therapy - will need rehab r/t ongoing weakness; discussion w/pt's family about need for rehab - possible long-term placement if unable to progress; [facility] interested to discuss with ; [facility] unable to meet pt's needs; continue to follow. KAORLINA PLEITEZ Rn-Adult Family Home Program Manager - 10/06/20 08:58:40 Received call from pt's daughter Leslie Og and she requested referrals be sent to [facility] in [place], [place] ([employer]) and [facility] in [place], [place] ([employer]). KAROLINA PLEITEZ Rn-Adult Family Home Program Manager - 10/05/20 15:28:00 HD#4; ELOS 3; MRR; BOOST 7 - GenEdema/Hypernatremia/Anasarca - 02=2L; B/P 105/58; PO Vancomycin; Midodrine 10 mg TID; lytes to be replaced; Nephrology has signed off; pt MaxAx2 w/therapy; updates sent thru [facility] to [facility] and left another message for f/u to confirm pt may return and anticipated turn around time for precert; DCP return for rehab; will likely require ambulance for transport; pt on transfer out of [facility]. KAROLINA PLEITEZ Rn-Adult Family Home Program Manager - 10/05/20 13:37:58 HD#4; ELOS 3; MRR; BOOST 7 - GenEdema/Hypernatremia/Anasarca - 02=2L; B/P 105/58; PO Vancomycin; Midodrine 10 mg TID; lytes to be replaced; Nephrology has signed off; pt MaxAx2 w/therapy; updates sent thru [facility] to [facility] and left another message for f/u to confirm pt may return and anticipated turn around time for precert; DCP return for rehab; will likely require ambulance for transport; pt on transfer out of [facility]. Spoke with [facility] and advised they will be unable to meet patient's needs; referral cancelled. sophia Spoke with pt's son Kishore and advised pt may require long-term care placement; he will discuss options with his sister and advise ; initial referrals sent thru [facility] to [facility]. KAROLINA PLEITEZ Rn-Adult Family Home Program Manager - 10/05/20 13:54:46 HD#1; ELOS 3; MRR; BOOST 7 - GenEdema/Hypernatremia/Anasarca - improving - 02=2L; Levo gtt; Midodrine; IV Bumex; Nephrology - 24 hr urine to eval for nephrotic syndrome; +CDiff; Rocephin/Doxy/Vanc; ltd work w/therapy - refusing OOB and knee/hip AROM; pt needs to be encouraged; DCP rehab - left message for [facility] [phone] to confirm receipt of referral; pt will need precert. KAROLINA PLEITEZ, Rn-Adult Family Home Program Manager - 10/02/20 12:06:37 HD#1; ELOS 3; MRR; BOOST 7 - Transfer from [facility] for Generalized Edema; Nephrology consult; PQ=254; RA; Doxycycline/Rocephin; met w/pt's adult children Leslie Ashbytyler and Kishore Bosch ([phone]) who states DCP will be return to [facility] for ongoing rehab; explained pt will require a precert; updates clinicals sent to [facility] and voicemail left for intake [phone]; [phone]. KAROLINA PLEITEZ, Rn-Adult Family Home Program Manager - 10/01/20 14:32:34 BHARGAVI MEYER, SUSANA-Adult Family Home Program Manager - 10/12/2020 12:16 EDT documented in this encounter Plan of Treatment Not on file documented as of this encounter Visit Diagnoses Not on filedocumented in this encounter
--- OUTSIDE RECORDS SUMMARY | 2025-04-14 11:16 | XMS_ITS | Encounter Summary ---
Author Organization [employer] ([place], [place], [place], [place], [place]) Address [address] [place] [address] Care Team Providers Care Mine Foreman Name Role Phone Unavailable Primary Care Provider Unavailabl e Encounter Details Date Type Department Care Team (Late st Contact Info) Description 10/11/2020 Transcribed Document [facility] [place] [place] [address] [place] [address] ProviderRadha MD [address] [place] [address] Social History Tobacco Use Types [...] Historical ProviderMD - 10/11/2020 2:00 AM CDT Guide Domestic Tour Details Entered On: 10/11/2020 2:35 EDT Performed [...]
--- OUTSIDE RECORDS SUMMARY | 2025-04-14 11:16 | XMS_ITS | Encounter Summary ---
Author Organization [employer] ([place], [place], [place], [place], [place]) Address [address] [place] [address] Care Team Providers Care Model Home Sales Greeter Name Role Phone Unavailable Primary Care Provider Unavailabl e Encounter Details Date Type Department Care Team (Late st Contact Info) Description 10/12/2020 Transcribed Document [facility] [place] Family Medicine [address] [place] [address] ProviderRadha MD [address] [place] [address] Social History Tobacco Use Types [...] Historical ProviderMD - 10/12/2020 2:00 AM CDT Diorama Model Maker Details Entered On: 10/12/2020 3:10 EDT [...]
--- OUTSIDE RECORDS SUMMARY | 2025-04-14 11:16 | XMS_ITS | Encounter Summary ---
Author Organization [employer] ([place], [place], [place], [place], [place]) Address [address] [place] [address] Care Team Providers Care Plane Runner Name Role Phone Unavailable Primary Care Provider Unavailabl e Encounter Details Date Type Department Care Team (Late st Contact Info) Description 10/13/2020 Transcribed Document [facility] [place] Family Medicine [address] [place] [address] ProviderRadha MD [address] [place] [address] Social History Tobacco Use Types [...]
--- OUTSIDE RECORDS SUMMARY | 2025-04-14 11:16 | XMS_ITS | Encounter Summary ---
Author Organization [email or web address] ([place], [place], [place], [place], [place]) Address [address] [place] [address] Care Team Providers Care Cable Operator Name Role Phone Unavailable Primary Care Provider Unavailabl e Encounter Details Date Type Department Care Team (Late st Contact Info) Description 10/04/2020 Transcribed Document [facility] [place] Family [place] [address] [place] [address] ProviderRadha MD [address] [place] [address] Social History Tobacco Use Types [...] Historical ProviderMD - 10/04/2020 2:00 AM CDT Trip Rider Details Entered On: 10/04/2020 2:14 EDT Performed [...]
--- OUTSIDE RECORDS SUMMARY | 2025-04-14 11:16 | XMS_ITS | Encounter Summary ---
Author Organization [employer] ([place], [place], [place], [place], [place]) Address [address] [place] [address] Care Team Providers Care Nutritional Chemist Name Role Phone Unavailable Primary Care Provider Unavailabl e Encounter Details Date Type Department Care Team (Late st Contact Info) Description 10/01/2020 Transcribed Document [facility] [place] Family Medicine [address] [place] [address] ProviderRadha MD [address] [place] [address] Social History Tobacco Use Types [...] 10/01/2020 18:07 EDT Electronically signed by Angela [facility] Conversion Regulatory Technician Cerner at 08/02/2022 6:20 PM CDT documented in this encounter Plan of Treatment Not on file documented as of this encounter Visit Diagnoses Not on filedocumented in this encounter
--- OUTSIDE RECORDS SUMMARY | 2025-04-14 11:16 | XMS_ITS | Encounter Summary ---
Author Organization [facility] ([place], [place], [place], [place], [place]) Address [address] [place] [address] Care Team Providers Care Chemist Water Purification Name Role Phone Unavailable Primary Care Provider Unavailabl e Encounter Details Date Type Department Care Team (Late st Contact Info) Description 10/08/[address] [facility] [place] [address] [place] [address] ProviderRadha MD [address] [place] [address] Social History Tobacco Use Types [...]
--- OUTSIDE RECORDS SUMMARY | 2025-04-14 11:16 | XMS_ITS | Encounter Summary ---
Author Organization [employer] ([place], [place], [place], [place], [place]) Address [address] [place] [address] Care Team Providers Care Burn Out Scarfing Operator Name Role Phone Unavailable Primary Care Provider Derrell rose Encounter Details Date Type Department Care Team (Late st Contact Info) Description 10/09/2020 Transcribed Document [facility] [place] [address] [place] [address] ProviderRadha MD [address] [place] [address] Social History Tobacco Use Types [...] mg, Oral, Daily Lovenox: 40 mg, SubCutaneous, [id number] MiraLax: 17 Gram, Oral, Daily, PRN: Constipation [...] History of obstructive sleep apnea / IMO [id number] / Confirmed, Active Problems (6) Diabetes mellitus [...] 20) H 443 (CLAUDIA 19) H 443 (CLAUIDA 18) Na 142 (CLAUDIA 25) 141 (CLAUDIA [...]
--- OUTSIDE RECORDS SUMMARY | 2025-04-14 11:16 | XMS_ITS | Encounter Summary ---
Author Organization [employer] ([place], [place], [place], [place], [place]) Address [address] [place] [address] Care Team Providers Care Promotions Team Leader Name Role Phone Unavailable Primary Care Provider Unavailabl e Encounter Details Date Type Department Care Team (Late st Contact Info) Description 10/13/2020 Transcribed Document [facility] [place] [address] [place] [address] ProviderRadha MD [address] [place] [address] Social History Tobacco Use Types [...]
--- OUTSIDE RECORDS SUMMARY | 2025-04-14 11:16 | XMS_ITS | Encounter Summary ---
Author Organization [employer] ([place], [place], [place], [place], [place]) Address [address] [place] [address] Care Team Providers Care Assisted Living Coordinator Name Role Phone Unavailable Primary Care Provider Unavailabl e Encounter Details Date Type Department Care Team (Late st Contact Info) Description 10/12/2020 Transcribed Document [facility] [place] Family Medicine [address] [place] [address] ProviderRadha MD [address] [place] [address] Social History Tobacco Use Types [...] On: 10/12/2020 16:20 EDT by BHARGAVI MEYER, RN-Batch Still Operator Final Discharge Planning Discharge Arrangements : Patient Post-Acute Information Patient Name: LUH GLASS Gender: Female : 62 Age: 59 Years No Post-Acute Placement(s) Listed No Post-Acute Service(s) Listed No Curaspan Referral(s) Listed Patient Offered Choice/Affiliations Explained : Yes Important Medicare Message Reviewed With : Patient Transportation Needs : Ambulance Discharge Transportation Arrangement Cmt : 10/13@1100 BHARGAVI MEYER, RN-Batch Still Operator - 10/12/2020 16:20 EDT documented in this encounter Plan of Treatment Not on file documented as of this encounter Visit Diagnoses Not on filedocumented in this encounter
--- OUTSIDE RECORDS SUMMARY | 2025-04-14 11:16 | XMS_ITS | Encounter Summary ---
Author Organization [employer] ([place], [place], [place], [place], [place]) Address [address] [place] [address] Care Team Providers Care Office Administrator Name Role Phone Unavailable Primary Care Provider Unavailabl e Encounter Details Date Type Department Care Team (Late st Contact Info) Description 10/13/2020 Transcribed Document [facility] [place] Family Medicine [address] [place] [address] ProviderRadha MD [address] [place] [address] Social History Tobacco Use Types [...] provider. Document Revised: 07/25/2019 Document Reviewed: 12/06/2017 [employer] Patient Education ? 2020 [employer]. Nutrition Low-Sodium Eating Plan Sodium, which is [...] (monosodium glutamate). MSG is sometimes added to Malaysian food, bouillon, and some canned foods. What [...] such as ricotta cheese, fresh mozzarella, or Micronesian cheese Low-sodium or reduced-sodium cheese. Cream cheese. [...] Vegetables Sauerkraut, pickled vegetables, and relishes. Olives. Luxembourgish fries. Onion rings. Regular canned vegetables (not [...] salad dressings. Salsa. Potato and tortilla chips. [place] chips and puffs. Salted popcorn and pretzels. [...] provider. Document Revised: 03/16/2018 Document Reviewed: 03/27/2017 [employer] Patient Education ? 2020 [employer]. Obstetrics and Gynecology Edema Edema is an [...] fluid you drink (fluid restriction). ??? Take urgg-jrm-twvslek and prescription medicines only as told by [...] provider. Document Revised: 08/21/2019 Document Reviewed: 05/06/2017 [employer] Patient Education ? 2019 [employer] documented in this encounter Plan of Treatment Not on file documented as of this encounter Visit Diagnoses Not on filedocumented in this encounter
--- OUTSIDE RECORDS SUMMARY | 2025-04-14 11:16 | XMS_ITS | Encounter Summary ---
Author Organization [employer] ([place], [place], [place], [place], [place]) Address [address] [place] [address] Care Team Providers Care Telegraph Office Telephone Clerk Name Role Phone Unavailable Primary Care Provider Unavailabl e Encounter Details Date Type Department Care Team (Late st Contact Info) Description 10/09/2020 Transcribed Document [facility] [place] [address] [place] [address] ProviderRadha MD [address] [place] [address] Social History Tobacco Use Types [...] 16:24 EDT Electronically signed by Angela [facility] Conversion Paint Laboratory Technician Cerner at 08/02/2022 6:21 PM CDT documented in this encounter Plan of Treatment Not on file documented as of this encounter Visit Diagnoses Not on filedocumented in this encounter
--- OUTSIDE RECORDS SUMMARY | 2025-04-14 11:16 | XMS_ITS | Encounter Summary ---
Author Organization [employer] ([place], [place], [place], [place], [place]) Address [address] [place] [address] Care Team Providers Care Employment And Claims Aide Name Role Phone Unavailable Primary Care Provider Unavailabl e Encounter Details Date Type Department Care Team (Late st Contact Info) Description 10/01/2020 Transcribed Document [facility] [place] Family Medicine [address] [place] [address] ProviderRadha MD [address] [place] [address] Social History Tobacco Use Types [...] Rapid Response Event Location Type : Other: [facility] Room 425 JONATHAN MADDOX RN - 10/01/2020 [...] change in location/level of care Rapid Response Employment And Claims Aide #1 : JONATHAN MADDOX RN Rapid Response Employment And Claims Aide #2 : FLORENCE ARIZA CRT LACY, ROBERT J, RN - 10/01/2020 1:57 EDT Rapid Response Systems Assessment Oxygen Saturation : 96 % Breath Sounds Auscultated : Anterior, Laterally All Lobes Breath Sounds : Diminished Cardiovascular Symptoms : None Heart Sounds : S1/S2, Distant Heart Rhythm : Regular Neck Vein Distention : Unable to visualize Brii Best Motor Response : Obey commands [place] Best Verbal Response : Oriented [place] Eye Opening Response : Spontaneous [place] Coma Score : 15 Level of Consciousness : Alert, Awake Orientation : Oriented x 4 Affect/Behavior : Appropriate, Calm, Cooperative JONATHAN MADDOX RN - 10/01/2020 2:09 EDT Oxygen Therapy Mode : Room air JONATHAN MADDOX RN - 10/01/2020 1:57 EDT DCP GENERIC CODE Edema, Lower Arm, Right : 3+ moderate/6 mm JONATHAN MADDOX RN - 10/01/2020 1:57 EDT Electronically signed by Galen Miller Conversion Personal Lines Account Manager Cerner at 08/02/2022 6:17 PM CDT documented in this encounter Plan of Treatment Not on file documented as of this encounter Visit Diagnoses Not on filedocumented in this encounter
--- OUTSIDE RECORDS SUMMARY | 2025-04-14 11:16 | XMS_ITS | Encounter Summary ---
Author Organization [employer] ([place], [place], [place], [place], [place]) Address [address] [place] [address] Care Team Providers Care Airplane Patroller Name Role Phone Unavailable Primary Care Provider Unavailabl e Encounter Details Date Type Department Care Team (Late st Contact Info) Description 10/09/2020 Transcribed Document [facility] [place] [address] [place] [address] ProviderRadha MD [address] [place] [address] Social History Tobacco Use Types [...]
--- OUTSIDE RECORDS SUMMARY | 2025-04-14 11:16 | XMS_ITS | Encounter Summary ---
Author Organization [employer] ([place], [place], [place], [place], [place]) Address [address] [place] [address] Care Team Providers Care Supervisor Sleeping Bag Department Name Role Phone Unavailable Primary Care Provider Derrell e Encounter Details Date Type Department Care Team (Late st Contact Info) Description 10/01/2020 Transcribed Document [facility] [place] Family Medicine [address] [place] [address] ProviderRadha MD [address] [place] [address] Social History Tobacco Use Types [...] mg, Oral, Daily Lovenox: 40 mg, SubCutaneous, [id number] MiraLax: 17 Gram, Oral, Daily, PRN: Constipation NORepinephrine injection 8 mg + NaCl 0.9% for drip 250 mL: Titrate, IntraVENous Phenergan: 6.25 mg, IntraVENous, Q6H, PRN: Nausea Rocephin: 1 Gram, 100 mL/Hr, IV Piggyback, [id number] Roxicodone: 5 mg, Oral, Q4H, PRN: Pain [...] History of obstructive sleep apnea / IMO [id number] / Confirmed, Active Problems (1) History of [...] 63.4 needs PT.OT echo ok cct 33mins documented in this encounter Plan of Treatment Not on file documented as of this encounter Visit Diagnoses Not on filedocumented in this encounter
--- OUTSIDE RECORDS SUMMARY | 2025-04-14 11:16 | XMS_ITS | Patient Health Record ---
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) Active confirmed Problem Hypotension due to drugs (822344505) Hypotension due to drugs (I95.2) Active confirmed Problem Gastro-esophageal reflux disease without esophagitis (169466944) Gastro-esophageal reflux disease without esophagitis (K21.9) Active confirmed Problem Cirrhosis of liver (49689285) Other cirrhosis of liver (K74.69) Active confirmed Problem Ascites (050478728) Other ascites (R18.8) Active confirmed Problem Hyponatremia (14959368) Hyponatremia (E87.1) Active confirmed Problem Hypothyroidism (69013147) Hypothyroidism (E03.9) Active confirmed Problem Mixed hyperlipidemia (311597376) Hyperlipemia, mixed (E78.2) Active confirmed Problem 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) Active confirmed Problem Peripheral edema (43247087) Peripheral edema (R60.9) Active confirmed Problem Diabetes mellitus type 2 (61899117) Diabetes mellitus type 2, uncontrolled (E11.65) Active confirmed Problem Edema (303811849) Edema leg (R60.0) Active conf irmed Problem Clostridial gastroenteritis (05037175) Enterocolitis due to Clostridium difficile, not specified [...] Coverage End Date [employer] MEDICARE [address] [address] [place] [address] [id number] PEPE GLASS Self - patient is the insured Medicaid of [place] [address] [place] [address] [id number] PEPE GLASS Self - patient is the insured Medical (General) History Surgical History Surgery Date(Month/Year) GALLBLADDER 2004 HYSTERECTOMY 2001 HAND 1988 Hospitalization History Reason Date(Month/Year) [facility] 11/2020
--- OUTSIDE RECORDS SUMMARY | 2025-04-14 11:16 | XMS_ITS | Encounter Summary ---
Author Organization [employer] ([place], [place], [place], [place], [place]) Address [address] [place] [address] Care Team Providers Care Heel Washer Stringing Machine Operator Name Role Phone Unavailable Primary Care Provider Unavailabl e Encounter Details Date Type Department Care Team (Late st Contact Info) Description 10/10/2020 Transcribed Document [facility] [place] [address] [place] [address] ProviderRadha MD [address] [place] [address] Social History Tobacco Use Types [...]
--- OUTSIDE RECORDS SUMMARY | 2025-04-14 11:16 | XMS_ITS | Encounter Summary ---
Author Organization [employer] ([place], [place], [place], [place], [place]) Address [address] [place] [address] Care Team Providers Care Waste Water Plant Operator Name Role Phone Unavailable Primary Care Provider Unavailabl e Encounter Details Date Type Department Care Team (Late st Contact Info) Description 10/12/2020 Transcribed Document [facility] [place] [address] [place] [address] ProviderRadha MD [address] [place], [...] On: 10/12/2020 16:21 EDT by BHARGAVI MEYER RN-Newspaper Managing EditorPrinted Circuit Board Drafter Progress Note Discharge Arrangements : Patient Post-Acute Information Patient Name: LUH BOSCH Gender: Female : 62 Age: 59 Years No Post-Acute Placement(s) Listed No Post-Acute Service(s) Listed No [place] Referral(s) Listed Discharge Options Discussed with Patient : Acute rehabilitation, Discharge transportation, DME, Home Health, Short term rehabilitation Barriers to Discharge Identified : No penitentiary bed available Barriers to Discharge Unresolved : No penitentiary bed available, Other: precert Patient Offered Choice/Affiliations Explained : Yes BHARGAVI MEYER RN-Newspaper Managing Editor - 10/12/2020 16:21 EDT Narrative Progress Note Narrative Progress Note : precert approved for [facility] and ems arranged for 10/13@1100. attending and pt aware and agreed. per pt, left vm on dtr's line. mariama from [facility] updated. Historical Progress Note : ELOS 3, hospital day 912 RRS 59 [facility] updated per mariama. For hopeful precert initiated at [facility]. EMS arranged for 10/14@1100, trip # [id number]. Bariatric bed and bariatric stretcher requested at [facility] and ems. BHARGAVI MEYER RN-Newspaper Managing Editor - 10/12/20 12:17:36 ELOS 3, hospital day 8, RRS 59, she needs a petroleum terminal plant operator care skilled bed, referrals sent to Mariama mcarthur with [facility] assessing for bariatric bed at [facility] or [facility] LIAM COWAN Rn-Newspaper Managing Editor - 10/08/20 17:55:50 Received call from [facility] [phone] advising CM their facility is unable to meet pt's needs - r/t C-Diff; weight - non-ambulatory w/ bed activity; pt on transfer to [facility] - notified CM. KAROLINA PLEITEZ Rn-Newspaper Managing Editor - 10/07/20 11:01:00 HD#6; ELOS 3; MRR; BOOST 7 - GenEdema/Anasarca; received voice mail from [facility] - DON requesting additional clinical information - faxed this am; awaiting return call to confirm precert has been initiated. KAROLINA PLEITEZ Rn-Newspaper Managing Editor - 10/07/20 07:45:25 Dr. Pemberton tells CM pt is ready to transition and is appropriate for precert to be initiated with short-term rehab; spoke with pt and she is in agreement to go to [facility]. Contacted [facility] and she will initiate the precert and confirm with Dr. Whittaker. KAROLINA PLEITEZ Rn-Newspaper Managing Editor - 10/06/20 13:57:22 HD#5; ELOS 3; MRR; BOOST 7 - Generalized Edema/Anasarca = 02/2L; Vancomycin/Midodrine; declined to stand w/therapy - will need rehab r/t ongoing weakness; discussion w/pt's family about need for rehab - possible long-term placement if unable to progress; [facility] interested to discuss with [facility] [place] unable to meet pt's needs; continue to follow. KAROLINA PLEITEZ, Rn-Newspaper Managing Editor - 10/06/20 08:58:40 Received call from pt's daughter Leslie Og and she requested referrals be sent to [facility] in [place], [place] ([employer]) and [facility] in [place], [place] ([employer]). KAROLINA PLEITEZ Rn-Newspaper Managing Editor - 10/05/20 15:28:00 HD#4; ELOS 3; MRR; BOOST 7 - GenEdema/Hypernatremia/Anasarca - 02=2L; B/P 105/58; PO Vancomycin; Midodrine 10 mg TID; lytes to be replaced; Nephrology has signed off; pt MaxAx2 w/therapy; updates sent thru [facility] to [facility] and left another message for f/u to confirm pt may return and anticipated turn around time for precert; DCP return for rehab; will likely require ambulance for transport; pt on transfer out of [facility]. KAROLINA PLEITEZ Rn-Newspaper Managing Editor - 10/05/20 13:37:58 HD#4; ELOS 3; MRR; BOOST 7 - GenEdema/Hypernatremia/Anasarca - 02=2L; B/P 105/58; PO Vancomycin; Midodrine 10 mg TID; lytes to be replaced; Nephrology has signed off; pt MaxAx2 w/therapy; updates sent thru [facility] to [facility] and left another message for f/u to [...] referrals sent thru [facility] to [facility]. KAROLINA PLEITEZ Rn-Newspaper Managing Editor - 10/05/20 13:54:46 HD#1; ELOS 3; MRR; BOOST 7 - GenEdema/Hypernatremia/Anasarca - improving - 02=2L; Levo gtt; Midodrine; IV Bumex; Nephrology - 24 hr urine to eval for nephrotic syndrome; +CDiff; Rocephin/Doxy/Vanc; ltd work w/therapy - refusing OOB and knee/hip AROM; pt needs to be encouraged; DCP rehab - left message for [facility] [phone] to confirm receipt of referral; pt will need precert. KAROLINA PLEITEZ, Rn-Newspaper Managing Editor - 10/02/20 12:06:37 HD#1; ELOS 3; MRR; BOOST 7 - [facility] from [facility]; Nephrology consult; NK=175; RA; Doxycycline/Rocephin; met w/pt's adult children Leslie Og and Kishore Bosch ([phone]) who states DCP will be return to [facility] for ongoing rehab; explained pt will require a precert; updates clinicals sent to [facility] and voicemail left for intake [phone]; [phone]. KAROLINA PLEITEZ Rn-Newspaper Managing Editor - 10/01/20 14:32:34 BHARGAVI MEYER, SUSANA-Newspaper Managing Editor - 10/12/2020 16:21 EDT documented in this encounter Plan of Treatment Not on file documented as of this encounter Visit Diagnoses Not on filedocumented in this encounter
--- OUTSIDE RECORDS SUMMARY | 2025-04-14 11:16 | XMS_ITS | Encounter Summary ---
Author Organization [employer] ([place], [place], [place], [place], [place]) Address [address] [place] [address] Care Team Providers Care Elementary Reading Tutor Name Role Phone Unavailable Primary Care Provider Unavailabl e Encounter Details Date Type Department Care Team (Late st Contact Info) Description 10/04/2020 Transcribed Document [facility] [place] [address] [place] [address] ProviderRadha MD [address] [place] [address] Social History Tobacco Use Types [...] 10/04/2020 5:06 EDT Electronically signed by Angela [facility] Conversion Cross Country And Track And Field Coach Cerner at 08/02/2022 6:29 PM CDT documented in this encounter Plan of Treatment Not on file documented as of this encounter Visit Diagnoses Not on filedocumented in this encounter
--- OUTSIDE RECORDS SUMMARY | 2025-04-14 11:16 | XMS_ITS | Encounter Summary ---
Author Organization [employer] ([place], [place], [place], [place], [place]) Address [address] [place] [address] Care Team Providers Care Freelance Copywriter Name Role Phone Unavailable Primary Care Provider Unavailabl e Encounter Details Date Type Department Care Team (Late st Contact Info) Description 10/04/2020 Transcribed Document [facility] [place] Family Medicine [address] [place] [address] ProviderRadha MD [address] [place] [address] Social History Tobacco Use Types [...] pedal edema. No cyanosis. Peripheral pulses palpable. FRETTED INSTRUMENT MAKER HAND: No focal deficit noted grossly. Cranial nerves [...] - Medical Enoxaparin 40 mg, SubCutaneous, Inj, [id number], Routine, Start 09/30/20 12:00:00 EDT, 09/30/20 11:44:00 [...] Daily Lovenox, 40 mg= 0.4 mL, SubCutaneous, [id number] magnesium sulfate, 2 Gram= 50 mL, IV [...] # 0.48 x10(3)/uL (Low) 10/04/2020 04:07 EDT [place] % 3.9 % 10/04/2020 04:07 EDT [place] # 0.34 K/uL 10/04/2020 04:07 EDT Eos [...] 10/04/2020 04:07 EDT Electronically signed by Angela, [facility] Conversion Neurology Specialist Cerner at 08/02/2022 6:26 PM CDT documented in this encounter Plan of Treatment Not on file documented as of this encounter Visit Diagnoses Not on filedocumented in this encounter
--- OUTSIDE RECORDS SUMMARY | 2025-04-14 11:16 | XMS_ITS | Encounter Summary ---
Author Organization [employer] ([place], [place], [place], [place], [place]) Address [address] [place] [address] Care Team Providers Care Net Solutions Architect Name Role Phone Unavailable Primary Care Provider Unavailabl e Encounter Details Date Type Department Care Team (Late st Contact Info) Description 10/08/2020 Transcribed Document [facility] [place] [address] [place] [address] ProviderRadha MD [address] [place] [address] Social History Tobacco Use Types [...] Radha ProviderMD - 10/08/2020 2:00 AM CDT Industrial Robotics Mechanic Details Entered On: 10/08/2020 3:45 EDT Performed [...] 10/08/2020 3:45 EDT Electronically signed by Angela [facility] Conversion Advanced Solutions Architect Cerner at 08/02/2022 6:24 PM CDT documented in this encounter Plan of Treatment Not on file documented as of this encounter Visit Diagnoses Not on filedocumented in this encounter
--- OUTSIDE RECORDS SUMMARY | 2025-04-14 11:16 | XMS_ITS | Encounter Summary ---
Author Organization [employer] ([place], [place], [place], [place], [place]) Address [address] [place] [address] Care Team Providers Care Salesforce Specialist Name Role Phone Unavailable Primary Care Provider Unavailabl e Encounter Details Date Type Department Care Team (Late st Contact Info) Description 10/08/2020 Transcribed Document [facility] [place] [address] [place] [address] ProviderRadha MD [address] [place] [address] Social History Tobacco Use [...] On: 10/08/2020 17:54 EDT by LIAM COWAN Rn-Rivet Machine OperatorArea Operations Manager Progress Note Discharge Arrangements : Patient [...] Attend Multidisciplinary Rounds? : Yes LIAM COWAN, Rn-Rivet Machine Operator - 10/08/2020 17:54 EDT Narrative Progress Note Narrative Progress Note : WALLYOS 3, hospital day 8, RRS 59, she needs a intermediate care skilled bed, referrals sent to Radha mcarthur with [facility] assessing for bariatric bed at [facility] or [facility] Historical Progress Note : Received call from [facility] [phone] advising CM their facility is unable to meet pt's needs - r/t C-Diff; weight - non-ambulatory w/ bed activity; pt on transfer to [facility] - notified CM. KAROLINA PLEITEZ Rn-Rivet Machine Operator - 10/07/20 11:01:00 HD#6; ELOS 3; MRR; BOOST 7 - GenEdema/Anasarca; received voice mail from [facility] - DON requesting additional clinical information - faxed this am; awaiting return call to confirm precert has been initiated. KAROLINA PLEITEZ Rn-Rivet Machine Operator - 10/07/20 07:45:25 Dr. Pemberton tells CM pt is ready to transition and is appropriate for precert to be initiated with short-term rehab; spoke with pt and she is in agreement to go to [facility]. Contacted [facility] and she will initiate the precert and confirm with Dr. Whittaker. KAROLINA PLEITEZ Rn-Rivet Machine Operator - 10/06/20 13:57:22 HD#5; ELOS 3; MRR; BOOST 7 - Generalized Edema/Anasarca = 02/2L; Vancomycin/Midodrine; declined to stand w/therapy - will need rehab r/t ongoing weakness; discussion w/pt's family about need for rehab - possible long-term placement if unable to progress; [facility] interested to discuss with MD; [facility] unable to meet pt's needs; continue to follow. KAROLINA PLEITEZ Rn-Rivet Machine Operator - 10/06/20 08:58:40 Received call from pt's daughter Leslie Og and she requested referrals be sent to [facility] in [place], [place] ([employer]) and [facility] in [place], [place] ([employer]). KAROLINA PLEITEZ Rn-Rivet Machine Operator - 10/05/20 15:28:00 HD#4; ELOS 3; MRR; BOOST 7 - GenEdema/Hypernatremia/Anasarca - 02=2L; B/P 105/58; PO Vancomycin; Midodrine 10 mg TID; lytes to be replaced; Nephrology has signed off; pt MaxAx2 w/therapy; updates sent thru [facility] to [place] and left another message for f/u to confirm pt may return and anticipated turn around time for precert; DCP return for rehab; will likely require ambulance for transport; pt on transfer out of [facility]. KAROLINA PLEITEZ Rn-Rivet Machine Operator - 10/05/20 13:37:58 HD#4; ELOS 3; MRR; BOOST 7 - GenEdema/Hypernatremia/Anasarca - 02=2L; B/P 105/58; PO Vancomycin; Midodrine 10 mg TID; lytes to be replaced; Nephrology has signed off; pt MaxAx2 w/therapy; [facility] [place] and left another message for f/u to [...] ; initial referrals sent thru [facility] to [facility]. KAROLINA PLEITEZ, Rn-Rivet Machine Operator - 10/05/20 13:54:46 HD#1; ELOS 3; MRR; BOOST 7 - GenEdema/Hypernatremia/Anasarca - improving - 02=2L; Levo gtt; Midodrine; IV Bumex; Nephrology - 24 hr urine to eval for nephrotic syndrome; +CDiff; Rocephin/Doxy/Vanc; ltd work w/therapy - refusing OOB and knee/hip AROM; pt needs to be encouraged; DCP rehab - left message for [facility] [phone] to confirm receipt of referral; pt will need precert. KAROLINA PLEITEZ, Rn-Rivet Machine Operator - 10/02/20 12:06:37 HD#1; ELOS 3; MRR; BOOST 7 - Transfer from [facility] for General[facility]; Nephrology consult; GS=640; RA; Doxycycline/Rocephin; met w/pt's adult children Leslie Ashbytyler and Kishore Bosch ([phone]) who states DCP will be return to [place] for ongoing rehab; explained pt will require a precert; updates clinicals sent to [place] and voicemail left for intake [phone]; [phone]. KAROLINA PLEITEZ Rn-Rivet Machine Operator - 10/01/20 14:32:34 LIAM COWAN Rn-Rivet Machine Operator - 10/08/2020 17:54 EDT documented in this encounter Plan of Treatment Not on file documented as of this encounter Visit Diagnoses Not on filedocumented in this encounter
--- OUTSIDE RECORDS SUMMARY | 2025-04-14 11:16 | XMS_ITS | Encounter Summary ---
Author Organization [email or web address] ([place], [place], [place], [place], [place]) Address [address] [place] [address] Care Team Providers Care Ride Attendant Name Role Phone Unavailable Primary Care Provider Unavailabl e Encounter Details Date Type Department Care Team (Late st Contact Info) Description 10/01/2020 Transcribed Document [facility] [place] Family Medicine [address] [place] [address] ProviderRadha MD [address] [place] [address] Social History Tobacco Use Types [...] #2 Relationship : son Primary Language : Nepali Communication Barrier : None Meat Team Member Needed : No Alyse Sanchez RN - [...] Scale Risk Level : 25-45 Medium Risk [place] Fall Interventions : Adequate lighting, Bed in [...] Source : Stated Height Entry Format : Faulkner Height, Feet : 5 ft(Converted to: 152 cm, 60 Inch) Height, Inches : 2 Inch(Converted to: 0 ft 2 Inch, 5.08 cm) Clinical Height : 157.48 cm Weight Source : Standing scale Weight Entry Format : Faulkner Clinical Dosing Weight : 157.27 kg Weight, Pounds : 346 lb Body Surface Area (BSA) : 2.42 m2 Body Mass Index : 63.4 kg/m2 (>HHI) Cameron Body Weight : 50 kg Alyse Sanchez [...] Alyse Sanchez RN - 10/01/2020 16:15 EDT [place] Suicide Severity Rating Scale (C-SSRS) CSSRS Past [...] 10/01/2020 16:15 EDT Electronically signed by Angela [facility] Conversion Supervisor Core Shop Cerner at 08/02/2022 6:22 PM CDT documented in this encounter Plan of Treatment Not on file documented as of this encounter Visit Diagnoses Not on filedocumented in this encounter
--- OUTSIDE RECORDS SUMMARY | 2025-04-14 11:16 | XMS_ITS | Encounter Summary ---
Author Organization [employer] ([place], [place], [place], [place], [place]) Address [address] [place] [address] Care Team Providers Care Demonstrator Sewing Techniques Name Role Phone Unavailable Primary Care Provider Unavailabl e Encounter Details Date Type Department Care Team (Late st Contact Info) Description 10/04/2020 Transcribed Document [facility] Radiology [address] [place] [address] Malu Pemberton MD [address] [place] [address] [address] Social History Tobacco Use [...]
--- OUTSIDE RECORDS SUMMARY | 2025-04-14 11:16 | XMS_ITS | Encounter Summary ---
Author Organization [employer] ([place], [place], [place], [place], [place]) Address [address] [place] [address] Care Team Providers Care Dermatologist Name Role Phone Unavailable Primary Care Provider Derrell rose Encounter Details Date Type Department Care Team (Late st Contact Info) Description 10/08/2020 Transcribed Document [facility] [place] [address] [place] [address] ProviderRadha MD [address] [place] [address] Social History Tobacco Use Types [...] mg, Oral, Daily Lovenox: 40 mg, SubCutaneous, X70VLot MiraLax: 17 Gram, Oral, Daily, PRN: Constipation [...] History of obstructive sleep apnea / IMO [id number] / Confirmed, Active Problems (6) Diabetes mellitus [...] above 25 minutes Electronically signed by Angela [facility] Conversion Community Dietitian Cerner at 08/02/2022 6:10 PM CDT documented in this encounter Plan of Treatment Not on file documented as of this encounter Visit Diagnoses Not on filedocumented in this encounter
--- OUTSIDE RECORDS SUMMARY | 2025-04-14 11:16 | XMS_ITS | Encounter Summary ---
Author Organization [employer] ([place], [place], [place], [place], [place]) Address [address] [place] [address] Care Team Providers Care Software Test And Validation Engineer Name Role Phone Unavailable Primary Care Provider Unavailabl e Encounter Details Date Type Department Care Team (Late st Contact Info) Description 10/13/2020 Transcribed Document [facility] [place] [address] [place] [address] ProviderRadha MD [address] [place] [address] Social History Tobacco Use Types [...] MD - 10/13/2020 10:28 AM CDT [facility] [place], [place] [id number] LUH BOSCH :1960 Visit Time:09/30/2020 Your Visit [...] (monosodium glutamate). MSG is sometimes added to Tuvaluan food, bouillon, and some canned foods. What [...] such as ricotta cheese, fresh mozzarella, or Cook Islander cheese Low-sodium or reduced-sodium cheese. Cream cheese. [...] Vegetables Sauerkraut, pickled vegetables, and relishes. Olives. Kazakh fries. Onion rings. Regular canned vegetables (not [...] and sea salt. Canned and packaged gravies. [facility] Infirmarytershire sauce. Tartar sauce. Barbecue sauce. Teriyaki sauce. Soy sauce, including reduced-sodium. Steak sauce. Fish sauce. Oyster sauce. Cocktail sauce. Horseradish that you find on the shelf. Regular ketchup and mustard. Meat flavorings and tenderizers. Bouillon cubes. Hot sauce and Tabasco sauce. Premade or packaged marinades. Premade or packaged taco seasonings. Relishes. Regular salad dressings. Salsa. Potato and tortilla chips. Odell chips and puffs. Salted popcorn and pretzels. [...] provider. Document Revised: 03/16/2018 Document Reviewed: 03/27/2017 ElseEasy[employer]ve Patient Education ?? 2020 [employer] Edema Edema is an abnormal buildup [...] fluid you drink (fluid restriction). ??? Take lyps-edl-fxfkfsm and prescription medicines only as told by [...] Reviewed: 05/06/2017 Elsevier Patient Education ?? 2020 [employer] Inc. Fluid Restriction With some health conditions, [...] Reviewed: 12/06/2017 Elsevier Patient Education ?? 2020 [employer] Inc. Emergency Awareness and Preventative Care STROKE [...] Assistance with quitting is available by contacting 3-203-FYPCNOW. This is a free resource providing counseling, support, and referral. Or you may contact your personal physician. [place] [facility]: The National Suicide Prevention Lifeline is a [...] range between ( 0.0 and 7.0 ) Dimmit #: 0.40 K/uL -- Normal range between ( 0.16 and 1.00 ) Eos #: 0.15 x10(3)/uL -- Normal range between ( 0.00 and 0.80 ) Dimmit %: 5.2 % -- Normal range between [...] /LPF Urine Bilirubin Dipstick: Negative Urine Specific [place]: 1.010 -- Normal range between ( 1.005 [...] Creatinine Urine Random: 30 mg/dL Protein Ur Malone: 24 mg/dL 10/01/2020 5:49 AM Urea Nitrogen Urine Random: 390 mg/dL Osmolality Urine: 284 mOsm/kg -- Normal range between ( 50 and 1400 ) Sodium Ur Malone: 18 mMole/Liter General Chemistry 10/13/2020 6:05 AM [...] was given the opportunity to ask questions. Patient/Civil Engineering Technician Name: Patient/Civil Engineering Technician Signature: Relationship to Patient: Clinician/Hospital Civil Engineering Technician Signature: Date: documented in this encounter Plan of Treatment Not on file documented as of this encounter Visit Diagnoses Not on filedocumented in this encounter
--- OUTSIDE RECORDS SUMMARY | 2025-04-14 11:16 | XMS_ITS | Encounter Summary ---
Author Organization [employer] ([place], [place], [place], [place], [place]) Address [address] [place] [address] Care Team Providers Care Parachute Marker Name Role Phone Unavailable Primary Care Provider Unavailabl e Encounter Details Date Type Department Care Team (Late st Contact Info) Description 10/01/2020 Transcribed Document [facility] [place] Family Medicine [address] [place] [address] ProviderRadha MD [address] [place] [address] Social History Tobacco Use Types [...] On: 10/01/2020 14:29 EDT by KAROLINA PLEITEZ Rn-Hospital Television Rental ClerkCell Technician Progress Note Discharge Arrangements : Patient Post-Acute [...] : Clinical Condition of Patient KAROLINA PLEITEZ Rn-Hospital Television Rental Clerk - 10/01/2020 14:29 EDT Narrative Progress Note Narrative Progress Note : HD#1; ELOS 3; MRR; BOOST 7 - Transfer from [facility] for Generalized Edema; Nephrology consult; EC=657; RA; Doxycycline/Rocephin; met w/pt's adult children Leslie Lenka and Kishore Bosch ([phone]) who states DCP will be return to [facility] for ongoing rehab; explained pt will require a precert; updates clinicals sent to [facility] and voicemail left for intake [phone]; [phone]. KRAOLINA PLEITEZ, Rn-Hospital Television Rental Clerk - 10/01/2020 14:29 EDT documented in this encounter Plan of Treatment Not on file documented as of this encounter Visit Diagnoses Not on filedocumented in this encounter
--- OUTSIDE RECORDS SUMMARY | 2025-04-14 11:16 | XMS_ITS | Encounter Summary ---
Author Organization [employer] ([place], [place], [place], [place], [place]) Address [address] [place] [address] Care Team Providers Care Embedded Software Test Engineer Name Role Phone Unavailable Primary Care Provider Unavailabl e Encounter Details Date Type Department Care Team (Late st Contact Info) Description 10/13/2020 Transcribed Document [facility] [place] [address] [place] [address] ProviderRadha MD [address] [place] [address] Social History Tobacco Use Types [...] Discharge Date: 10/13/2020 Discharge Information discharge to [facility] Physical Examination VS/Measurements Vitals Signs [...] Results (Current Encounter/Past 24 Hours) Bun/Creatinine 67.5 MA 10/12/2020 09:09 eGFR >60 mL/min/1.73m2 10/12/2020 09:09 eGFR NonAfrican >60 mL/min/1.73m2 10/12/2020 09:09 Creatinine Level 0.40 mg/dL LOW 10/12/2020 09:09 Sodium Level 141 mmol/L 10/12/2020 09:09 Potassium Level 3.6 mmol/L 10/12/2020 09:09 Chloride Level 103 mmol/L 10/12/2020 09:09 Carbon Dioxide Level 29 mmol/L 10/12/2020 09:09 Anion Gap 13 10/12/2020 09:09 Blood Urea Nitrogen 27 mg/dL MA 10/12/2020 09:09 Glucose Level 88 mg/dL 10/12/2020 [...] gross fluid overload was transferred to [facility] from [facility] with hyponatremia. The patient story is that on 07/25, she weighed 230 pounds, with a history of having some mild lower extremity edema. She reports she gained approximately 100 pounds of water weight in 3 days on 07/28. She was hospitalized at [facility], was intermittently hypotensive and having lower extremity weakness. She improved and was discharged back to [facility], where for the past 2 weeks [...] dose bumex. [facility] Discharge Follow Up Follow up [...]
--- OUTSIDE RECORDS SUMMARY | 2025-04-14 11:16 | XMS_ITS | Encounter Summary ---
Author Organization [employer] ([place], [place], [place], [place], [place]) Address [address] [place] [address] Care Team Providers Care Semiconductor Wafers Etcher Stripper Name Role Phone Unavailable Primary Care Provider Unavailabl e Encounter Details Date Type Department Care Team (Late st Contact Info) Description 10/01/2020 Transcribed Document [facility] [place] Family Medicine [address] [place] [address] ProviderRadha MD [address] [place] [address] Social History Tobacco Use Types [...] Care Spiritual Care Referred by : Other: ASP NET DEVELOPER Event Reason for Visit : Initial Ministry Provided to : Patient Intervention/Comment/Summary Points : Chap. prayed o/s pt. while team worked with pt. Upon conclusion of ASP NET DEVELOPER event pt. declined chap. visit. BHARGAVI ANTON Chaplain - 10/01/2020 3:23 EDT documented in this encounter Plan of Treatment Not on file documented as of this encounter Visit Diagnoses Not on filedocumented in this encounter
--- OUTSIDE RECORDS SUMMARY | 2025-04-14 11:16 | XMS_ITS | Encounter Summary ---
Author Organization [employer] ([place], [place], [place], [place], [place]) Address [address] [place] [address] Care Team Providers Care Noodle Press Operator Name Role Phone Unavailable Primary Care Provider Unavailabl e Encounter Details Date Type Department Care Team (Late st Contact Info) Description 10/01/2020 Transcribed Document [facility] [place] [address] [place] [address] ProviderRadha MD [address] [place] [address] Social History Tobacco Use Types [...]
--- OUTSIDE RECORDS SUMMARY | 2025-04-14 11:16 | XMS_ITS | Encounter Summary ---
Author Organization [employer] ([place], [place], [place], [place], [place]) Address [address] [place] [address] Care Team Providers Care Lifestyle Block Farmer Name Role Phone Unavailable Primary Care Provider Unavailabl e Encounter Details Date Type Department Care Team (Late st Contact Info) Description 10/09/[address] [facility] [place] Family Medicine [address] [place] [address] ProviderRadha MD [address], [...] Alexsandra Alfred RN - 10/09/2020 17:01 EDT Electronically signed by Angela [facility] Conversion Retention Representative Cerner at 08/02/2022 6:21 PM CDT documented in this encounter Plan of Treatment Not on file documented as of this encounter Visit Diagnoses Not on filedocumented in this encounter
--- OUTSIDE RECORDS SUMMARY | 2025-04-14 11:16 | XMS_ITS | Encounter Summary ---
Author Organization [employer] ([place], [place], [place], [place], [place]) Address [address] [place] [address] Care Team Providers Care Insurance Compliance Analyst Name Role Phone Unavailable Primary Care Provider Unavailabl e Encounter Details Date Type Department Care Team (Late st Contact Info) Description 10/04/2020 Transcribed Document [facility] [place] Family Medicine [address] [place] [address] ProviderRadha MD [address] [place] [...]
--- OUTSIDE RECORDS SUMMARY | 2025-04-14 11:17 | XMS_ITS | Encounter Summary ---
Author Organization [employer] ([place], [place], [place], [place], [place]) Address [address] [place] [address] Care Team Providers Care Electrical Continuity Inspector Name Role Phone Unavailable Primary Care Provider Unavailabl e Encounter Details Date Type Department Care Team (Late st Contact Info) Description 10/05/2020 Transcribed Document [facility] [place] Family Medicine [address] [place] [address] ProviderRadha MD [address] [place], [...] Performed On: 10/05/2020 5:00 EDT by Desire eVrduzco Chart Check Powerplans Initiated/Discontinued as Appropriate : Yes All Active Orders Reviewed : Yes Desire Ver[employer]zco - 10/05/2020 4:49 EDT Electronically signed by Angela [facility] Conversion Sugar Trucker Cerner at 08/02/2022 6:14 PM CDT documented in this encounter Plan of Treatment Not on file documented as of this encounter Visit Diagnoses Not on filedocumented in this encounter
--- OUTSIDE RECORDS SUMMARY | 2025-04-14 11:17 | XMS_ITS | Encounter Summary ---
Author Organization [employer] ([place], [place], [place], [place], [place]) Address [address] [place] [address] Care Team Providers Care Tractor Driver Teamster Name Role Phone Unavailable Primary Care Provider Unavailabl e Encounter Details Date Type Department Care Team (Late st Contact Info) Description 10/11/2020 Transcribed Document [facility] [place] Family [place] [address] [place] [address] ProviderRadha MD [address] [place] [address] Social History Tobacco Use Types [...] Non Emp RN - 10/11/2020 4:27 EDT Electronically signed by Angela [facility] Conversion Neurocritical Care Physician Cerner at 08/02/2022 6:21 PM CDT documented in this encounter Plan of Treatment Not on file documented as of this encounter Visit Diagnoses Not on filedocumented in this encounter
--- OUTSIDE RECORDS SUMMARY | 2025-04-14 11:17 | XMS_ITS | Encounter Summary ---
Author Organization [employer] ([place], [place], [place], [place], [place]) Address [address] [place] [address] Care Team Providers Care Senior Net Software Developer Name Role Phone Unavailable Primary Care Provider Unavailabl e Encounter Details Date Type Department Care Team (Late st Contact Info) Description 10/07/2020 Transcribed Document [facility] [place] Family Medicine [address] [place] [address] ProviderRadha MD [address] [place] [address] Social History Tobacco Use Types [...] On: 10/07/2020 10:58 EDT by KAROLINA PLEITEZ Rn-Vascular TechnicianSmoking Tobacco Packer Hand Progress Note Discharge Arrangements : Patient Post-Acute Information Patient Name: LUH BOSCH Gender: Female : [birth year] Age: 59 Years Ruth Referral(s): Service: Organization: Business Address: Phone Number: Nursing Home Facility [facility] [address] [place], [address] Discharge Options Discussed with Patient : Acute rehabilitation, Discharge transportation, DME, Home Health, Short term rehabilitation Barriers to Discharge Identified : Clinical Condition of Patient, Follow-Up appointments needed Barriers to Discharge Unresolved : Clinical Condition of Patient KAROLINA PLEITEZ Rn-Vascular Technician - 10/07/2020 10:58 EDT Narrative Progress Note Narrative Progress Note : Received call from [facility] [phone] advising CM their facility is unable to meet pt's needs - r/t C-Diff; weight - non-ambulatory w/ bed activity; pt on transfer to [facility] - notified CM. Historical Progress Note : HD#6; ELOS 3; MRR; BOOST 7 - GenEdema/Anasarca; received voice mail from [facility] - DON requesting additional clinical information - faxed this am; awaiting return call to confirm precert has been initiated. KAROLINA PLEITEZ, Rn-Vascular Technician - 10/07/20 07:45:25 Dr. Pemberton tells CM pt is ready to transition and is appropriate for precert to be initiated with short-term rehab; spoke with pt and she is in agreement to go to [facility]. Contacted [facility] and she will initiate the precert and confirm with Dr. Whittaker. KAROLINA PLEITEZ Rn-Vascular Technician - 10/06/20 13:57:22 HD#5; ELOS 3; MRR; BOOST 7 - Generalized Edema/Anasarca = 02/2L; Vancomycin/Midodrine; declined to stand w/therapy - will need rehab r/t ongoing weakness; discussion w/pt's family about need for rehab - possible long-term placement if unable to progress; [facility] interested to discuss with MD; [facility] unable to meet pt's needs; continue to follow. KAROLINA PLEITEZ Rn-Vascular Technician - 10/06/20 08:58:40 Received call from pt's daughter Leslie Og and she requested referrals be sent to [facility] in [place], [place] ([employer]) and [facility] in [place], [place] ([employer]). KAROLINA PLEITEZ Rn-Vascular Technician - 10/05/20 15:28:00 HD#4; ELOS 3; MRR; BOOST 7 - GenEdema/Hypernatremia/Anasarca - 02=2L; B/P 105/58; PO Vancomycin; Midodrine 10 mg TID; lytes to be replaced; Nephrology has signed off; pt MaxAx2 w/therapy; [facility] and left another message for f/u to confirm pt may return and anticipated turn around time for precert; DCP return for rehab; will likely require ambulance for transport; pt on transfer out of [facility]. KAROLINA PLEITEZ Rn-Vascular Technician - 10/05/20 13:37:58 HD#4; ELOS 3; MRR; BOOST 7 - GenEdema/Hypernatremia/Anasarca - 02=2L; B/P 105/58; PO Vancomycin; Midodrine 10 mg TID; lytes to be replaced; Nephrology has signed off; pt MaxAx2 w/therapy; updates sent thru [facility] to [facility] and left another message for f/u to confirm pt may return and anticipated turn around time for precert; DCP return for rehab; will likely require ambulance for transport; pt on transfer out of [facility]. Spoke with [facility] and advised they will be unable to meet patient's needs; referral cancelled. sophia Spoke with pt's son Kishore and advised pt may require long-term care placement; he will discuss options with his sister and advise CM; [facility]. KAROLINA PLEITEZ Rn-Vascular Technician - 10/05/20 13:54:46 HD#1; ELOS 3; MRR; BOOST 7 - GenEdema/Hypernatremia/Anasarca - improving - 02=2L; Levo gtt; Midodrine; IV Bumex; Nephrology - 24 hr urine to eval for nephrotic syndrome; +CDiff; Rocephin/Doxy/Vanc; ltd work w/therapy - refusing OOB and knee/hip AROM; pt needs to be encouraged; DCP rehab - left message for [facility] [phone] to confirm receipt of referral; pt will need precert. KAROLINA PLEITEZ Rn-Vascular Technician - 10/02/20 12:06:37 HD#1; ELOS 3; MRR; BOOST 7 - Transfer from [facility] for Generalized Edema; Nephrology consult; AI=524; RA; Doxycycline/Rocephin; met w/pt's adult children Leslie Ashbytyler and Kishore Bosch ([phone]) who states DCP will be return to [facility] for ongoing rehab; explained pt will require a precert; updates clinicals sent to [facility] and [facility] left for intake [phone]; [phone]. KAROLINA PLEITEZ Rn-Vascular Technician - 10/01/20 14:32:34 KAROLINA PLEITEZ Rn-Vascular Technician - 10/07/2020 10:58 EDT documented in this encounter Plan of Treatment Not on file documented as of this encounter Visit Diagnoses Not on filedocumented in this encounter
--- OUTSIDE RECORDS SUMMARY | 2025-04-14 11:17 | XMS_ITS | Clinical Summary ---
Author Organization Healthcare Address [address] [place] [address] Care Team Providers Care Pattern Cleaner Name Role Phone Clarence Ram MD Primary Care Provider Allergies Active Allergy Reactions Criticality Noted Date [...] [facility]-HIV Screening 1960 [facility]-Hepatitis C Screening 1960 [facility]-Medicare Annual Wellness (AWV) 1960 [facility]-/Child/Adol SDOH Screenings 1960 [facility]- SDOH Screenings 11/15/1979 [facility]-Adult SDOH Screenings 11/15/1979 [facility]-DTaP,Tdap,and Td Vaccines (1 - Tdap) 1980 CT Colonography 2006 Colonoscopy 2006 FIT-DNA 2006 FIT 2006 FOBT 2006 Sigmoidoscopy 2006 [facility]-Colorectal Cancer Screening 2006 [facility]-Breast Cancer Screening 11/15/2011 [id number] Vaccine (3 - Pfizer risk series) 09/29/2020 [...] to complete this topic Insurance [id number] [address] [place] MEDICARE Care Teams Pattern Cleaner Relationship Specialty Start Date End Date Clarence Ram MD Count Includes [facility] [id number] PCP - General 08/28/20
--- OUTSIDE RECORDS SUMMARY | 2025-04-14 11:17 | XMS_ITS | Encounter Summary ---
Author Organization [employer] ([place], [place], [place], [place], [place]) Address [address] [place] [address] Care Team Providers Care Cold Press Loader Name Role Phone Unavailable Primary Care Provider Unavailabl e Encounter Details Date Type Department Care Team (Late st Contact Info) Description 10/02/2020 Transcribed Document [facility] [place] [address] [place] [address] ProviderRadha MD [address] [place] [address] Social History Tobacco Use Types [...] On: 10/02/2020 12:02 EDT by KAROLINA PLEITEZ Rn-Brim PresserTorch Straightener And Heater Progress Note Discharge Arrangements : Patient Post-Acute [...] : Clinical Condition of Patient KAROLINA PLEITEZ Rn-Brim Presser - 10/02/2020 12:02 EDT Narrative Progress Note Narrative Progress Note : HD#1; ELOS 3; MRR; BOOST 7 - GenEdema/Hypernatremia/Anasarca - improving - 02=2L; Levo gtt; Midodrine; IV Bumex; Nephrology - 24 hr urine to eval for nephrotic syndrome; +CDiff; Rocephin/Doxy/Vanc; ltd work w/therapy - refusing OOB and knee/hip AROM; pt needs to be encouraged; DCP rehab - left message for [facility] [phone] to confirm receipt of referral; pt will need precert. Historical Progress Note : HD#1; ELOS 3; MRR; BOOST 7 - Transfer from [facility] for Generalized Edema; Nephrology consult; UG=512; RA; Doxycycline/Rocephin; met w/pt's adult children Leslie Lenka and Kishore Bosch ([phone]) who states DCP will be return to [facility] for ongoing rehab; explained pt will require a precert; [facility] [phone]; [phone]. KAROLINA PLEITEZ, Rn-Brim Presser - 10/01/20 14:32:34 KAROLINA PLEITEZ Rn-Brim Presser - 10/02/2020 12:02 EDT documented in this encounter Plan of Treatment Not on file documented as of this encounter Visit Diagnoses Not on filedocumented in this encounter
--- OUTSIDE RECORDS SUMMARY | 2025-04-14 11:17 | XMS_ITS | Encounter Summary ---
Author Organization [employer] ([place], [place], [place], [place], [place]) Address [address] [place] [address] Care Team Providers Care Cafeteria Cashier Name Role Phone Unavailable Primary Care Provider Unavailabl e Encounter Details Date Type Department Care Team (Late st Contact Info) Description 09/30/2020 Transcribed Document [facility] [place] [facility] [place] [address] [place] [address] ProviderRadha MD [address] [place] [address] Social History Tobacco Use Types [...] On: 09/30/2020 15:38 EDT by PADMA GOMEZ Mailroom Coordinator-Counter Caser Initial Assessment I Previously Documented Living Environment [...] have PCP Listed? : No PADMA GOMEZ Mailroom Coordinator-Counter Caser - 09/30/2020 15:38 EDT Initial Assessment II Sensory and Motor Deficits : Weakness Current Home Treatments and Equipment : Bedside commode, Walker PADMA GOMEZ Mailroom Coordinator-Counter Caser - 09/30/2020 15:38 EDT Discharge Needs I Anticipated Discharge To, CM : Home with home health, [facility] facility Current Home Treatment/Equipment : Current Home Treatment/Equipment No qualifying data available. Post Acute/Home Treatments : None Documentation Status Complete : Yes PADMA GOMEZ Mailroom Coordinator-Counter Caser - 09/30/2020 15:38 EDT Discharge Needs II Professional Skilled Services : Professional Skilled Services No qualifying data available. Needs Assistance with Transportation : Maybe Discharge Options Discussed with Patient : Acute rehabilitation, Discharge transportation, DME, Home Health, Short term rehabilitation PADMA GOMEZ Mailroom Coordinator-Counter Caser - 09/30/2020 15:38 EDT Narrative Note Narrative Note : Patient is a moderate readmission risk of 41 Boost of 5. Patient is from [facility]. Patient reported that she doesn't want to go back there if she can walk. Patient stated that she was unable to walk today because of fluid on me . Patient stated that if she can't walk at discharge she understands she has to go back to [facility]. Patient stated that if she can she wants to go home without any services including HH. Patient denied ever having HH. CM will continue to follow. PADMA GOMEZ Mailroom Coordinator-Counter Caser - 09/30/2020 15:38 EDT documented in this encounter Plan of Treatment Not on file documented as of this encounter Visit Diagnoses Not on filedocumented in this encounter
--- OUTSIDE RECORDS SUMMARY | 2025-04-14 11:17 | XMS_ITS | Encounter Summary ---
Author Organization [employer] ([place], [place], [place], [place], [place]) Address [address] [place] [address] Care Team Providers Care Dish Cloth Inspector Name Role Phone Unavailable Primary Care Provider Unavailabl e Encounter Details Date Type Department Care Team (Late st Contact Info) Description 10/05/2020 Transcribed Document [facility] [place] [address] [place] [address] ProviderRadha MD [address] [place] [address] Social History Tobacco Use Types [...] Historical ProviderMD - 10/05/2020 2:00 AM CDT Fibrous Plasterer Details Entered On: 10/05/2020 4:49 EDT Performed [...]
--- OUTSIDE RECORDS SUMMARY | 2025-04-14 11:17 | XMS_ITS | Encounter Summary ---
Author Organization Healthcare Address [address] [place] [address] Care Team Providers Care Order Takers Supervisor Name Role Phone Clarence Ram MD Primary Care Provider [phone] Reason for Referral * Consultation (Routine) - Closed Specialty Diagnoses / Procedures Referred By Danilo joseph Referred To Contact Plastic Surgery Diagnoses Loose skin Excessive body weight loss Wendy Payne APRN [id number] fax: Referral ID Status Reason Start Date Expiration Date V isits Requested Visits Authorized [id number] Closed Specialty Services Required 05/22/2024 11/21/2025 1 1 Encounter Details Date Type Department Care Team (Late st Contact Info) Description 05/22/2024 Community Orders [facility] [address] [place] [address] Wendy Payne APRN [id number] Loose skin (Primary Dx); Excessive body weight [...] weight documented in this encounter Care Teams Order Takers Supervisor Relationship Specialty Start Date End Date Clarence Ram MD [facility] [address] PCP - General 08/28/20 documented as of this encounter
--- OUTSIDE RECORDS SUMMARY | 2025-04-14 11:17 | XMS_ITS | Encounter Summary ---
Author Organization [employer] ([place], [place], [place], [place], [place]) Address [address] [place] [address] Care Team Providers Care Clinical Data Coordinator Name Role Phone Unavailable Primary Care Provider Unavailabl e Encounter Details Date Type Department Care Team (Late st Contact Info) Description 10/03/2020 Transcribed Document [facility] Radiology [address] [place] [address] Malu Pemberton MD [address] [place] [address] [address] Social History Tobacco Use Types [...] final culture obtained. Discussed with patient, nephrology decorating consultant and nursing. PT as tolerated Time spent with above 30 minutes documented in this encounter Plan of Treatment Not on file documented as of this encounter Visit Diagnoses Not on filedocumented in this encounter
--- OUTSIDE RECORDS SUMMARY | 2025-04-14 11:17 | XMS_ITS | Encounter Summary ---
Author Organization [employer] ([place], [place], [place], [place], [place]) Address [address] [place] [address] Care Team Providers Care Bar Pilot Name Role Phone Unavailable Primary Care Provider Unavailabl e Encounter Details Date Type Department Care Team (Late st Contact Info) Description 10/05/2020 Transcribed Document [facility] [place] [address] [place] [address] ProviderRadha MD [address] [place] [address] Social History Tobacco Use Types [...] On: 10/05/2020 15:27 EDT by KAROLINA PLEITEZ Rn-Middle Card TenderDrag Seiner Progress Note Discharge Arrangements : Patient Post-Acute [...] : Clinical Condition of Patient KAROLINA PLEITEZ Rn-Middle Card Tender - 10/05/2020 15:27 EDT Narrative Progress Note Narrative Progress Note : Received call from pt's daughter Leslie Og and she requested referrals be sent to [facility] in [place], [place] ([employer]) and [facility] in [place], [place] ([employer]). Historical Progress Note : HD#4; ELOS 3; MRR; BOOST 7 - GenEdema/Hypernatremia/Anasarca - 02=2L; B/P 105/58; PO Vancomycin; Midodrine 10 mg TID; lytes to be replaced; Nephrology has signed off; pt MaxAx2 w/therapy; updates sent thru [facility] to [place] [facility] and left another message for f/u to confirm pt may return and anticipated turn around time for precert; DCP return for rehab; will likely require ambulance for transport; pt on transfer out of [facility]. KAROLINA PLEITEZ, Rn-Middle Card Tender - 10/05/20 13:37:58 HD#4; ELOS 3; MRR; BOOST 7 - GenEdema/Hypernatremia/Anasarca - 02=2L; B/P 105/58; PO Vancomycin; Midodrine 10 mg TID; lytes to be replaced; Nephrology has signed off; pt MaxAx2 w/therapy; updates sent thru [facility] to [place] [facility] and left another message for f/u to confirm pt may return and anticipated turn around time for precert; DCP return for rehab; will likely require ambulance for transport; pt on transfer out of [facility]. Spoke with [facility]/[place] [facility] and advised they will be unable to meet patient's needs; referral cancelled. sophia Spoke with pt's son Kishore and advised pt may require long-term care placement; he will discuss options with his sister and advise ; initial referrals sent thru [facility] to [facility]. KAROLINA PLEITEZ, Brenda-Middle Card Tender - 10/05/20 13:54:46 HD#1; ELOS 3; MRR; BOOST 7 - GenEdema/Hypernatremia/Anasarca - improving - 02=2L; Levo gtt; Midodrine; IV Bumex; Nephrology - 24 hr urine to eval for nephrotic syndrome; +CDiff; Rocephin/Doxy/Vanc; ltd work w/therapy - refusing OOB and knee/hip AROM; pt needs to be encouraged; DCP rehab - left message for [facility] [phone] to confirm receipt of referral; pt will need precert. KAROLINA PLEITEZ, Rn-Middle Card Tender - 10/02/20 12:06:37 HD#1; ELOS 3; MRR; BOOST 7 - Transfer from [facility]; Nephrology consult; LG=165; RA; Doxycycline/Rocephin; met w/pt's adult children Leslie Og and Kishore Bosch ([phone]) who states DCP will be return to [place] [facility] for ongoing rehab; explained pt will require a precert; updates clinicals sent to [facility] and voicemail left for intake [phone]; [phone]. KAROLINA PLEITEZ, Rn-Middle Card Tender - 10/01/20 14:32:34 KAROLINA PLEITEZ, Rn-Middle Card Tender - 10/05/2020 15:27 EDT documented in this encounter Plan of Treatment Not on file documented as of this encounter Visit Diagnoses Not on filedocumented in this encounter
--- OUTSIDE RECORDS SUMMARY | 2025-04-14 11:17 | XMS_ITS | Encounter Summary ---
Author Organization [employer] ([place], [place], [place], [place], [place]) Address [address] [place] [address] Care Team Providers Care Glazier Helper Name Role Phone Unavailable Primary Care Provider Unavailabl e Encounter Details Date Type Department Care Team (Late st Contact Info) Description 09/29/2020 Transcribed Document [facility] [place] [address] [place] [address] ProviderRadha MD [address] [place] [address] Social History Tobacco Use Types [...] #2 Relationship : son Primary Language : Spanish Communication Barrier : None Mold Capper Helper Needed : No Marlee Richmond RN - [...] Scale Risk Level : 25-45 Medium Risk [place] Fall Interventions : Adequate lighting, Assistive devices [...] Source : Stated Height Entry Format : [place] Height, Feet : 5 ft(Converted to: 152 cm, 60 Inch) Height, Inches : 2 Inch(Converted to: 0 ft 2 Inch, 5.08 cm) Clinical Height : 157.48 cm Weight Source : Standing scale Weight Entry Format : [place] Clinical Dosing Weight : 157.27 kg Weight, Pounds : 346 lb Body Surface Area (BSA) : 2.42 m2 Body Mass Index : 63.4 kg/m2 (>HHI) [place] Body Weight : 50 kg Marlee Richmond [...] Marlee Richmond RN - 09/29/2020 23:18 EDT [place] Suicide Severity Rating Scale (C-SSRS) CSSRS Past [...]
--- OUTSIDE RECORDS SUMMARY | 2025-04-14 11:17 | XMS_ITS | Encounter Summary ---
Author Organization Healthcare Address [address] [place] [address] Care Team Providers Care Supervisor Offset Plate Preparation Name Role Phone Clarence Ram MD Primary Care Provider [phone] Reason for Referral * Consultation (Routine) - Closed Specialty Diagnoses / Procedures Referred By Danilo joseph Referred To Contact Plastic Surgery Diagnoses Abdominal obesity Wendy Payne, DULCE MARIA [id number] fax: Referral ID Status Reason Start Date Expiration Date V isits Requested Visits Authorized [id number] Closed Specialty Services Required 09/29/2023 03/30/2025 1 1 Encounter Details Date Type Department Care Team (Late st Contact Info) Description 09/29/2023 Community Orders [facility] Practice [address] [place] [address] Wendy Payne, BOTTOM BRUSHER [address] Abdominal obesity (Primary Dx) Social History Tobacco [...] adiposity documented in this encounter Care Teams Supervisor Offset Plate Preparation Relationship Specialty Start Date End Date Clarence Ram MD [address] [address] PCP - General 08/28/20 documented as of this encounter
--- OUTSIDE RECORDS SUMMARY | 2025-04-14 11:17 | XMS_ITS | Encounter Summary ---
Author Organization [employer] ([place], [place], [place], [place], [place]) Address [address] [place] [address] Care Team Providers Care Humane Agent Name Role Phone Unavailable Primary Care Provider Unavailabl e Encounter Details Date Type Department Care Team (Late st Contact Info) Description 10/13/2020 Transcribed Document [facility] [place] [address] [place] [address] ProviderRadha MD [address], [place] [address] Social History Tobacco Use Types Packs/Day Years [...]
--- OUTSIDE RECORDS SUMMARY | 2025-04-14 11:17 | XMS_ITS | Encounter Summary ---
Author Organization [employer] ([place], [place], [place], [place], [place]) Address [address] [place] [address] Care Team Providers Care Slip Tender Name Role Phone Unavailable Primary Care Provider Unavailabl e Encounter Details Date Type Department Care Team (Late st Contact Info) Description 10/13/2020 Transcribed Document [facility] [place] [address] [place] [address] ProviderRadha MD [address] [place] [address] Social History Tobacco Use Types [...] from hospital Discharged to, Therapy : [facility] Discharge Summary Comment, PT : last seen [...] DONNY HALE, PT - 10/13/2020 13:15 EDT Longterm Goals Mobility/Bed Mobility LTG PT Grid Goal [...]
--- OUTSIDE RECORDS SUMMARY | 2025-04-14 11:17 | XMS_ITS | Encounter Summary ---
Author Organization [employer] ([place], [place], [place], [place], [place]) Address [address] [place] [address] Care Team Providers Care Assistant Oceanographer Name Role Phone Unavailable Primary Care Provider Unavailabl e Encounter Details Date Type Department Care Team (Late st Contact Info) Description 10/13/2020 Transcribed Document [facility] [place] [address] [place] [address] ProviderRadha MD [address] [place] [address] Social History Tobacco Use Types [...] Historical ProviderMD - 10/13/2020 2:00 AM CDT Pigment Grinder Details Entered On: 10/13/2020 6:37 EDT Performed [...]
--- OUTSIDE RECORDS SUMMARY | 2025-04-14 11:17 | XMS_ITS | Encounter Summary ---
Author Organization [employer] ([place], [place], [place], [place], [place]) Address [address] [place] [address] Care Team Providers Care Transport Truck Driver Name Role Phone Unavailable Primary Care Provider Unavailabl e Encounter Details Date Type Department Care Team (Late st Contact Info) Description 10/05/2020 Transcribed Document [facility] [place] [address] [place] [address] ProviderRadha MD [address] [place] [address] Social History Tobacco Use Types [...]
--- OUTSIDE RECORDS SUMMARY | 2025-04-14 11:17 | XMS_ITS | Encounter Summary ---
Author Organization [employer] ([place], [place], [place], [place], [place]) Address [address] [place] [address] Care Team Providers Care Manager Quality Compliance Name Role Phone Unavailable Primary Care Provider Unavailabl e Encounter Details Date Type Department Care Team (Late st Contact Info) Description 10/11/2020 Transcribed Document [facility] [place] [address] [place] [address] ProviderRadha MD [address] [place] [address] Social History Tobacco Use Types [...] discharge disposition: snf Samantha Melendez Hospitalist pager- [phone] documented in this encounter Plan of Treatment Not on file documented as of this encounter Visit Diagnoses Not on filedocumented in this encounter
--- OUTSIDE RECORDS SUMMARY | 2025-04-14 11:17 | XMS_ITS | Encounter Summary ---
Author Organization [employer] ([place], [place], [place], [place], [place]) Address [address] [place] [address] Care Team Providers Care Oyster Preparer Name Role Phone Unavailable Primary Care Provider Unavailabl e Encounter Details Date Type Department Care Team (Late st Contact Info) Description 10/02/2020 Transcribed Document [facility] [place] [address] [place] [address] ProviderRadha MD [address] [place] [address] Social History Tobacco Use Types [...] 10/02/2020 18:13 EDT Electronically signed by Angela [facility] Conversion Qualification Engineer Cerner at 08/02/2022 6:24 PM CDT documented in this encounter Plan of Treatment Not on file documented as of this encounter Visit Diagnoses Not on filedocumented in this encounter
--- OUTSIDE RECORDS SUMMARY | 2025-04-14 11:17 | XMS_ITS | Encounter Summary ---
Author Organization [employer] ([place], [place], [place], [place], [place]) Address [address] [place] [address] Care Team Providers Care Medical Laboratory Technologist Name Role Phone Unavailable Primary Care Provider Unavailabl e Encounter Details Date Type Department Care Team (Late st Contact Info) Description 09/29/2020 Transcribed Document [facility] [place] [address] [place] [address] ProviderRadha MD [address] [place] [address] Social History Tobacco Use Types [...] Rehab Maximal assistance (Comment: x2 [IVY LACEY, OTR/Susanna - 09/30/2020 15:25 EDT] ) Bed Roll [...] IVY LACEY OTR/Susanna - 09/30/2020 15:25 EDT Extension Professor Goals, OT Grooming LTG Grid Goal #1 [...] 09/30/2020 15:25 EDT Electronically signed by Angela, [facility] Conversion [employer] Debe[employer] Cerner at 08/02/2022 6:30 PM CDT documented in this encounter Plan of Treatment Not on file documented as of this encounter Visit Diagnoses Not on filedocumented in this encounter
--- OUTSIDE RECORDS SUMMARY | 2025-04-14 11:17 | XMS_ITS | Encounter Summary ---
Author Organization [employer] ([place], [place], [place], [place], [place]) Address [address] [place] [address] Care Team Providers Care Ham Marker Name Role Phone Unavailable Primary Care Provider Derrell e Encounter Details Date Type Department Care Team (Late st Contact Info) Description 10/02/2020 Transcribed Document [facility] [place] [address] [place] [address] ProviderRadha MD [address] [place] [address] Social History Tobacco Use Types [...] mg, Oral, Daily Lovenox: 40 mg, SubCutaneous, [id number] MiraLax: 17 Gram, Oral, Daily, PRN: Constipation NORepinephrine injection 8 mg + NaCl 0.9% for drip 250 mL: Titrate, IntraVENous Phenergan: 6.25 mg, IntraVENous, Q6H, PRN: Nausea Rocephin: 1 Gram, 100 mL/Hr, IV Piggyback, [id number] Roxicodone: 5 mg, Oral, Q4H, PRN: Pain [...] History of obstructive sleep apnea / IMO [id number] / Confirmed, Active Problems (6) Diabetes mellitus [...] rn cct 33mins Electronically signed by Angela, [facility] Conversion Cpr Ambulance Driver Cerner at 08/02/2022 6:16 PM CDT documented in this encounter Plan of Treatment Not on file documented as of this encounter Visit Diagnoses Not on filedocumented in this encounter
--- OUTSIDE RECORDS SUMMARY | 2025-04-14 11:17 | XMS_ITS | Encounter Summary ---
Author Organization [employer] ([place], [place], [place], [place], [place]) Address [address] [place] [address] Care Team Providers Care Gravity Flow Irrigator Name Role Phone Unavailable Primary Care Provider Unavailabl e Encounter Details Date Type Department Care Team (Late st Contact Info) Description 10/02/[address] [facility] [place] [address] [place] [address] ProviderRadha MD [address] [place] [address] Social History Tobacco Use Types [...]
--- OUTSIDE RECORDS SUMMARY | 2025-04-14 11:17 | XMS_ITS | Encounter Summary ---
Author Organization [employer] ([place], [place], [place], [place], [place]) Address [address] [place] [address] Care Team Providers Care Conflicts Analyst Name Role Phone Unavailable Primary Care Provider Unavailabl e Encounter Details Date Type Department Care Team (Late st Contact Info) Description 10/02/2020 Transcribed Document [facility] [place] Family Medicine [address] [place] [address] ProviderRadha MD [address] [place] [address] Social History Tobacco Use Types [...] meal orders prn. Pt willing to try [id number] BID. RD to add. Will f/up as scheduled. Mariam Cohen Dietitian - 10/02/2020 10:47 EDT documented in this encounter Plan of Treatment Not on file documented as of this encounter Visit Diagnoses Not on filedocumented in this encounter
--- OUTSIDE RECORDS SUMMARY | 2025-04-14 11:17 | XMS_ITS | Encounter Summary ---
Author Organization [employer] ([place], [place], [place], [place], [place]) Address [address] [place] [address] Care Team Providers Care Video Game Animator Name Role Phone Unavailable Primary Care Provider Unavailabl e Encounter Details Date Type Department Care Team (Late st Contact Info) Description 10/03/2020 Transcribed Document [facility] [place] [address] [place] [address] ProviderRadha MD [address] [place] [address] Social History Tobacco Use Types [...]
--- OUTSIDE RECORDS SUMMARY | 2025-04-14 11:17 | XMS_ITS | Encounter Summary ---
Author Organization [employer] ([place], [place], [place], [place], [place]) Address [address] [place] [address] Care Team Providers Care Resist Coater Developer Name Role Phone Unavailable Primary Care Provider Unavailabl e Encounter Details Date Type Department Care Team (Late st Contact Info) Description 10/11/2020 Transcribed Document [facility] [place] [address] [place] [address] ProviderRadha MD [address] [place] [address] Social History Tobacco Use Types [...]
--- OUTSIDE RECORDS SUMMARY | 2025-04-14 11:17 | XMS_ITS | Encounter Summary ---
Author Organization [employer] ([place], [place], [place], [place], [place]) Address [address] [place] [address] Care Team Providers Care Delivery And Mail Sorter Name Role Phone Unavailable Primary Care Provider Unavailabl e Encounter Details Date Type Department Care Team (Late st Contact Info) Description 10/05/2020 Transcribed Document [facility] [place] [address] [place] [address] ProviderRadha MD [address] [place] [address] Social History Tobacco Use Types [...] On: 10/05/2020 13:33 EDT by KAROLINA PLEITEZ Rn-Family Practice DoctorCoffee Supervisor Progress Note Discharge Arrangements : Patient [...] : Clinical Condition of Patient KAROLINA PLEITEZ Rn-Family Practice Doctor - 10/05/2020 13:33 EDT Narrative Progress Note Narrative Progress Note : HD#4; ELOS 3; MRR; BOOST 7 - GenEdema/Hypernatremia/Anasarca - 02=2L; B/P 105/58; PO Vancomycin; Midodrine 10 mg TID; lytes to be replaced; Nephrology has signed off; pt MaxAx2 w/therapy; updates sent thru [facility] to [facility] and left another message for f/u to confirm pt may return and anticipated turn around time for precert; DCP return for rehab; will likely require ambulance for transport; pt [facility]. [facility] and advised they will be unable to meet patient's needs; referral cancelled. l Spoke with pt's son Kishore and advised pt may require long-term care placement; he will discuss options with his sister and advise CM; initial referrals sent thru [facility] to [facility]. KAROLINA PLEITEZ, Rn-Family Practice Doctor - 10/05/2020 13:53 EDT Historical Progress Note : HD#1; ELOS 3; MRR; BOOST 7 - GenEdema/Hypernatremia/Anasarca - improving - 02=2L; Levo gtt; Midodrine; IV Bumex; Nephrology - 24 hr urine to eval for nephrotic syndrome; +CDiff; Rocephin/Doxy/Vanc; ltd work w/therapy - refusing OOB and knee/hip AROM; pt needs to be encouraged; DCP rehab - left message for [facility] [phone] to confirm receipt of referral; pt will need precert. KAROLINA PLEITEZ, Rn-Family Practice Doctor - 10/02/20 12:06:37 HD#1; ELOS 3; MRR; BOOST 7 - Transfer from [facility]; Nephrology consult; TP=300; RA; Doxycycline/Rocephin; met w/pt's adult children Leslie Ashbytyler and Kishore Bosch ([phone]) who states DCP will be return to [facility] for ongoing rehab; explained pt will require a precert; updates clinicals sent to [facility] and voicemail left for intake [phone]; [phone]. KAROLINA PLEITEZ, Rn-Family Practice Doctor - 10/01/20 14:32:34 KAROLINA PLEITEZ, Brenda-Family Practice Doctor - 10/05/2020 13:33 EDT documented in this encounter Plan of Treatment Not on file documented as of this encounter Visit Diagnoses Not on filedocumented in this encounter
--- OUTSIDE RECORDS SUMMARY | 2025-04-14 11:17 | XMS_ITS | Encounter Summary ---
Author Organization [employer] ([place], [place], [place], [place], [place]) Address [address] [place] [address] Care Team Providers Care Terra Cotta Roofer Name Role Phone Unavailable Primary Care Provider Unavailabl e Encounter Details Date Type Department Care Team (Late st Contact Info) Description 10/02/2020 Transcribed Document [facility] [place] Family Medicine [address] [place] [address] ProviderRadha MD [address] [place] [address] Social History Tobacco Use Types [...] On: 10/02/2020 7:47 EDT by Verena Kimble, Physician Office Rep Primary Insurance Authorization Authorization and Policy Numbers : Insurance 1 Health Plan: [employer] PPO Policy Number: [id number] Authorization Number: Insurance 2 Health Plan: [place]ID [place] Policy Number: [id number] Authorization Number: Insurance Primary Name : [employer] PPO Policy Number: [id number] Authorization Status-Primary : Notification only Reference Number-Primary : [id number] Authorization Number-Primary : [id number] Authorized Service Begin Date-Primary : 09/29/2020 EDT Authorization Comments-Primary : Authorized per email from Angel Poon RN. Historical Authorization Comments-Primary : Comment 1: SUBMITTED ON [employer]AILITY. PAYOR HAS ACCESS TO EMR (Daisy Davison Rn-Utilization Review 09/30/2020 13:24) Verena Kimble, Physician Office Rep - 10/02/2020 7:47 EDT Electronically signed by Angela [facility] Conversion Electronic Components Assembler Cerner at 08/02/2022 6:09 PM CDT documented in this encounter Plan of Treatment Not on file documented as of this encounter Visit Diagnoses Not on filedocumented in this encounter
--- OUTSIDE RECORDS SUMMARY | 2025-04-14 11:17 | XMS_ITS | Encounter Summary ---
Author Organization [employer] ([place], [place], [place], [place], [place]) Address [address] [place] [address] Care Team Providers Care Pastry Supervisor Name Role Phone Unavailable Primary Care Provider Unavailabl e Encounter Details Date Type Department Care Team (Late st Contact Info) Description 09/30/2020 Transcribed Document [facility] [place] Family Medicine [address] [place] [address] ProviderRadha MD [address] [place] [address] Social History Tobacco Use [...] much for the consult. WIll follow along. [id number] Electronically signed by Angela [facility] Conversion Cruise Coordinator Cerner at 08/02/2022 6:21 PM CDT documented in this encounter Plan of Treatment Not on file documented as of this encounter Visit Diagnoses Not on filedocumented in this encounter
--- OUTSIDE RECORDS SUMMARY | 2025-04-14 11:17 | XMS_ITS | Encounter Summary ---
Author Organization [employer] ([place], [place], [place], [place], [place]) Address [address] [place] [address] Care Team Providers Care Supervisor Offset Plate Preparation Name Role Phone Unavailable Primary Care Provider Unavailabl e Encounter Details Date Type Department Care Team (Late st Contact Info) Description 09/30/2020 Transcribed Document [facility] [place] [address] [place] [address] ProviderRadha MD [address] [place] [address] Social History Tobacco Use Types [...] HEIDI PORRAS OTR/L - 10/12/2020 15:06 EDT Halfway Goals, OT Grooming LTG Grid Goal #1 [...] Needs, OT/PT Anticipated Discharge to : Unit, fci HEIDI PORRAS OTR/[place] 10/12/2020 15:[address] [facility] OT Charges OT Ther Activities Ea 15 Min : 1 HEIDI PORRAS OTR/[place] - 10/12/2020 15:06 EDT documented in this encounter Plan of Treatment Not on file documented as of this encounter Visit Diagnoses Not on filedocumented in this encounter
--- OUTSIDE RECORDS SUMMARY | 2025-04-14 11:17 | XMS_ITS | Encounter Summary ---
Author Organization [employer] ([place], [place], [place], [place], [place]) Address [address] [place] [address] Care Team Providers Care Logistics Engineer Name Role Phone Unavailable Primary Care Provider Unavailabl e Encounter Details Date Type Department Care Team (Late st Contact Info) Description 09/30/2020 Transcribed Document [facility] [place] [address] [place] [address] ProviderRadha MD [address] [place] [address] Social History Tobacco Use Types [...]
--- OUTSIDE RECORDS SUMMARY | 2025-04-14 11:17 | XMS_ITS | Encounter Summary ---
Author Organization [employer] ([place], [place], [place], [place], [place]) Address [address] [place] [address] Care Team Providers Care Tin Assorter Name Role Phone Unavailable Primary Care Provider Unavailabl e Encounter Details Date Type Department Care Team (Late st Contact Info) Description 10/03/2020 Transcribed Document [facility] [place] Family Medicine [address] [place] [address] ProviderRadha MD [address] [place] [address] Social History Tobacco Use Types [...] Historical ProviderMD - 10/03/2020 2:00 AM CDT Superintendent Distribution Details Entered On: 10/03/2020 3:25 EDT Performed [...]
--- OUTSIDE RECORDS SUMMARY | 2025-04-14 11:17 | XMS_ITS | Encounter Summary ---
Author Organization [employer] ([place], [place], [place], [place], [place]) Address [address] [place] [address] Care Team Providers Care Special Warfare Combatant Crewman Name Role Phone Unavailable Primary Care Provider Unavailabl e Encounter Details Date Type Department Care Team (Late st Contact Info) Description 10/07/2020 Transcribed Document [facility] [place] [address] [place] [address] ProviderRadha MD [address] [place] [address] Social History Tobacco Use Types [...] On: 10/07/2020 7:43 EDT by KAROLINA PLEITEZ Rn-Music ArtistCage Supervisor Progress Note Discharge Arrangements : Patient Post-Acute Information Patient Name: LUH BOSCH Gender: Female : 62 Age: 59 Years Ruth Referral(s): Service: Organization: Business Address: Phone Number: [facility] [address] [place], [address] Discharge Options Discussed with Patient : Acute rehabilitation, Discharge transportation, DME, Home Health, Short term rehabilitation Barriers to Discharge Identified : Clinical Condition of Patient, Follow-Up appointments needed Barriers to Discharge Unresolved : Clinical Condition of Patient KAROLINA PLEITEZ Rn-Music Artist - 10/07/2020 7:43 EDT Narrative Progress Note Narrative Progress Note : HD#6; ELOS 3; MRR; BOOST 7 - GenEdema/Anasarca; received voice mail from [facility] - DON requesting additional clinical information - faxed this am; awaiting return call to confirm precert has been initiated. Historical Progress Note : Dr. Pemberton tells CM pt is ready to transition and is appropriate for precert to be initiated with short-term rehab; spoke with pt and she is in agreement to go to [facility]. Contacted [facility] and she will initiate the precert and confirm with Dr. Whittaker. KAROLINA PLEITEZ Rn-Music Artist - 10/06/20 13:57:22 HD#5; ELOS 3; MRR; BOOST 7 - Generalized Edema/Anasarca = 02/2L; Vancomycin/Midodrine; declined to stand w/therapy - will need rehab r/t ongoing weakness; discussion w/pt's family about need for rehab - possible long-term placement if unable to progress; [facility] interested to discuss with MD; [facility] unable to meet pt's needs; continue to follow. KARLOINA PLEITEZ Rn-Music Artist - 10/06/20 08:58:40 Received call from pt's daughter Leslie Og and she requested referrals be sent to [facility] in [place], [place] ([facility]) and [facility] in [place], [place] ([facility]). KAROLINA PLEITEZ Rn-Music Artist - 10/05/20 15:28:00 HD#4; ELOS 3; MRR; BOOST 7 - GenEdema/Hypernatremia/Anasarca - 02=2L; B/P 105/58; PO Vancomycin; Midodrine 10 mg TID; lytes to be replaced; Nephrology has signed off; pt MaxAx2 w/therapy; updates sent thru [facility] to [facility] and left another message for f/u to confirm pt may return and anticipated turn around time for precert; DCP return for rehab; will likely require ambulance for transport; pt on transfer out of [facility]. KAROLINA PLEITEZ Rn-Music Artist - 10/05/20 13:37:58 HD#4; ELOS 3; MRR; BOOST 7 - GenEdema/Hypernatremia/Anasarca - 02=2L; B/P 105/58; PO Vancomycin; Midodrine 10 mg TID; lytes to be replaced; Nephrology has signed off; pt MaxAx2 w/therapy; updates sent thru [facility] to [facility] and left another message for f/u to confirm pt may return and anticipated turn around time for precert; DCP return for rehab; will likely require ambulance for transport; pt on transfer out of [facility]. Spoke with [facility] and advised they will be unable to meet patient's needs; referral cancelled. sophia Spoke with pt's son Kishore and advised pt may require long-term care placement; he will discuss options with his sister and advise CM; initial referrals sent thru [facility] to [place]. KAROLINA PLEITEZ, Rn-Music Artist - 10/05/20 13:54:46 HD#1; ELOS 3; MRR; BOOST 7 - GenEdema/Hypernatremia/Anasarca - improving - 02=2L; Levo gtt; Midodrine; IV Bumex; Nephrology - 24 hr urine to eval for nephrotic syndrome; +CDiff; Rocephin/Doxy/Vanc; ltd work w/therapy - refusing OOB and knee/hip AROM; pt needs to be encouraged; DCP rehab - left message for [facility] [phone] to confirm receipt of referral; pt will need precert. KAROLINA PLEITEZ Rn-Music Artist - 10/02/20 12:06:37 HD#1; ELOS 3; MRR; BOOST 7 - Transfer from [facility] for Generalized Edema; Nephrology consult; AV=217; RA; Doxycycline/Rocephin; met w/pt's adult children Leslie Og and Kishore Bosch ([phone]) who states DCP will be return to [facility] for ongoing rehab; explained pt will require a precert; updates clinicals sent to [facility] and voicemail left for intake [phone]; [phone]. KAROLINA PLEITEZ Rn-Music Artist - 10/01/20 14:32:34 KAROLINA PLEITEZ Rn-Music Artist - 10/07/2020 7:43 EDT Electronically signed by Angela, [facility] Conversion Packager Head Cerner at 08/02/2022 6:20 PM CDT documented in this encounter Plan of Treatment Not on file documented as of this encounter Visit Diagnoses Not on filedocumented in this encounter
--- OUTSIDE RECORDS SUMMARY | 2025-04-14 11:17 | XMS_ITS | Encounter Summary ---
Author Organization [employer] ([place], [place], [place], [place], [place]) Address [address] [place] [address] Care Team Providers Care Knockdown Worker Name Role Phone Unavailable Primary Care Provider Unavailabl e Encounter Details Date Type Department Care Team (Late st Contact Info) Description 10/02/2020 Transcribed Document [facility] [place] Family Medicine [address] [place] [address] ProviderRadha MD [address], [place] [...] Historical ProviderMD - 10/02/2020 2:00 AM CDT Extender Details Entered On: 10/02/2020 0:09 EDT Performed [...]
--- OUTSIDE RECORDS SUMMARY | 2025-04-14 11:17 | XMS_ITS | Encounter Summary ---
Author Organization [employer] ([place], [place], [place], [place], [place]) Address [address] [place] [address] Care Team Providers Care Roll Form Operator Name Role Phone Unavailable Primary Care Provider Unavailabl e Encounter Details Date Type Department Care Team (Late st Contact Info) Description 09/29/2020 Transcribed Document [facility] [place] [address] [place] [address] ProviderRadha MD [address] [place] [address] Social History Tobacco Use Types [...] PT - 09/30/2020 15:14 EDT Other PT [facility] Grid Goal #1 Goal #2 Goal : Pt will maintain static sit EOB up to 5 min with supervision Pt will tolerate AROM exercises with BLE's x 10 reps each Date to Meet : 10/07/2020 EDT 10/07/2020 EDT Goal Status : Initial goal Initial goal MELO MOLINA, PT - 09/30/2020 15:14 EDT MELO MOLINA, PT - 09/30/2020 15:14 EDT Residential Goals Mobility/Bed Mobility LTG PT Grid Goal [...] aware of. Total A for hygiene as FISH AND WILDLIFE WARDEN assisted with pt rolling to each side [...] MELO MOLINA, PT - 09/30/2020 15:14 EDT [facility] PT Charges PT Eval Moderate Complexity : 1 MELO MOLINA, PT - 09/30/2020 15:14 EDT documented in this encounter Plan of Treatment Not on file documented as of this encounter Visit Diagnoses Not on filedocumented in this encounter
--- OUTSIDE RECORDS SUMMARY | 2025-04-14 11:17 | XMS_ITS | Encounter Summary ---
Author Organization [employer] ([place], [place], [place], [place], [place]) Address [address] [place] [address] Care Team Providers Care Trim Technician Name Role Phone Unavailable Primary Care Provider Unavailabl e Encounter Details Date Type Department Care Team (Late st Contact Info) Description 10/10/2020 Transcribed Document [facility] [place] Family Medicine [address] [place] [address] ProviderRadha MD [address] [place] [address] Social History Tobacco Use Types [...] Historical ProviderMD - 10/10/2020 2:00 AM CDT Periodicals Library Assistant Details Entered On: 10/10/2020 4:58 EDT Performed [...]
--- OUTSIDE RECORDS SUMMARY | 2025-04-14 11:17 | XMS_ITS | Encounter Summary ---
Author Organization [employer] ([place], [place], [place], [place], [place]) Address [address] [place] [address] Care Team Providers Care Radiation Protection Engineer Name Role Phone Unavailable Primary Care Provider Unavailabl e Encounter Details Date Type Department Care Team (Late st Contact Info) Description 10/02/2020 Transcribed Document [facility] [place] Family Medicine [address] [place] [address] ProviderRadha MD [address] [place] [address] Social History Tobacco Use Types [...] EDT Electronically signed by Angela rickie Conversion Pest Control Chemical Technician Cerner at 08/02/2022 6:27 PM CDT documented in this encounter Plan of Treatment Not on file documented as of this encounter Visit Diagnoses Not on filedocumented in this encounter
--- OUTSIDE RECORDS SUMMARY | 2025-04-14 11:17 | XMS_ITS | Encounter Summary ---
Author Organization [employer] ([place], [place], [place], [place], [place]) Address [address] [place] [address] Care Team Providers Care Vice President Of Development Name Role Phone Unavailable Primary Care Provider Unavailabl e Encounter Details Date Type Department Care Team (Late st Contact Info) Description 10/02/2020 Transcribed Document [facility] Family Medicine [address] [place] [address] ProviderRadha MD [address] [place] [address] Social History Tobacco Use Types [...] pedal edema. No cyanosis. Peripheral pulses palpable. WATER SERVICE DISPATCHER: No focal deficit noted grossly. Cranial nerves [...] - Medical Enoxaparin 40 mg, SubCutaneous, Inj, C82QUpi, Routine, Start 09/30/20 12:00:00 EDT, 09/30/20 11:44:00 [...] Daily Lovenox, 40 mg= 0.4 mL, SubCutaneous, [id number] magnesium sulfate, 2 Gram= 50 mL, IV [...]
--- OUTSIDE RECORDS SUMMARY | 2025-04-14 11:17 | XMS_ITS | Encounter Summary ---
Author Organization [email or web address] ([place], [place], [place], [place], [place]) Address [address] [place] [address] Care Team Providers Care Dipper Fish Name Role Phone Unavailable Primary Care Provider Unavailabl e Encounter Details Date Type Department Care Team (Late st Contact Info) Description 10/10/2020 Transcribed Document [facility] [place] Family Medicine [address] [place] [address] ProviderRadha MD [address] [place] [address] Social History Tobacco Use Types [...] mL inj 40 mg 0.4 mL, SubCutaneous, [id number] famotidine 20 mg tab 20 mg 1 [...] discharge goals: await rehab anticipated discharge disposition: [facility] Samantha Melendez Hospitalist pager- [phone] documented in this encounter Plan of Treatment Not on file documented as of this encounter Visit Diagnoses Not on filedocumented in this encounter
--- OUTSIDE RECORDS SUMMARY | 2025-04-14 11:17 | XMS_ITS | Clinical Summary ---
Author Organization [employer] ([place], [place], [place], [place], [place]) Address [address] [place] [address] Care Team Providers Care Account Collector Name Role Phone Unavailable Primary Care Provider [...]
--- OUTSIDE RECORDS SUMMARY | 2025-04-14 11:17 | XMS_ITS | Encounter Summary ---
Author Organization [employer] ([place], [place], [place], [place], [place]) Address [address] [place] [address] Care Team Providers Care Water Treatment Technician Name Role Phone Unavailable Primary Care Provider Unavailabl e Encounter Details Date Type Department Care Team (Late st Contact Info) Description 09/29/2020 Transcribed Document [facility] [place] Family Medicine [address] [place] [address] ProviderRadha MD [address] [place] [address] Social History Tobacco Use Types [...]
--- OUTSIDE RECORDS SUMMARY | 2025-04-14 11:17 | XMS_ITS | Encounter Summary ---
Author Organization [employer] ([place], [place], [place], [place], [place]) Address [address] [place] [address] Care Team Providers Care Regulatory Technician Name Role Phone Unavailable Primary Care Provider Unavailabl e Encounter Details Date Type Department Care Team (Late st Contact Info) Description 10/03/[address] [facility] [place] [address] [place] [address] ProviderRadha MD [address] [place] [address] Social History Tobacco Use Types [...] pedal edema. No cyanosis. Peripheral pulses palpable. BUS TROLLEY AND TAXI INSTRUCTOR: No focal deficit noted grossly. Cranial nerves [...] - Medical Enoxaparin 40 mg, SubCutaneous, Inj, [id number], Routine, Start 09/30/20 12:00:00 EDT, 09/30/20 11:44:00 EDT (KIERSTEN COLEY DO) Sequential Compression Device Start: 09/29/20 23:53:00 EDT, Bilateral, Length: Knee High, While patient is in bed, Continuous Order (JAED CURIEL) Medications albumin human 25% intravenous solution, [...] Daily Lovenox, 40 mg= 0.4 mL, SubCutaneous, [id number] magnesium sulfate, 2 Gram= 50 mL, IV [...] EDT Electronically signed by Angela, [facility] Conversion Behaviorist Cerner at 08/02/2022 6:26 PM CDT documented in this encounter Plan of Treatment Not on file documented as of this encounter Visit Diagnoses Not on filedocumented in this encounter
--- OUTSIDE RECORDS SUMMARY | 2025-04-14 11:17 | XMS_ITS | Encounter Summary ---
Author Organization [employer] ([place], [place], [place], [place], [place]) Address [address] [place] [address] Care Team Providers Care Welder Gas Tungsten Arc Name Role Phone Unavailable Primary Care Provider Unavailabl e Encounter Details Date Type Department Care Team (Late st Contact Info) Description 10/05/2020 Transcribed Document [facility] [place] [address] [place] [address] ProviderRadha MD [address] [place] [address] Social History Tobacco Use Types [...] and eating ~50% of her meals. 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
--- OUTSIDE RECORDS SUMMARY | 2025-04-14 11:17 | XMS_ITS | Encounter Summary ---
Author Organization [employer] ([place], [place], [place], [place], [place]) Address [address] [place] [address] Care Team Providers Care Shipfitter Apprentice Name Role Phone Unavailable Primary Care Provider Unavailabl e Encounter Details Date Type Department Care Team (Late st Contact Info) Description 09/29/2020 Transcribed Document [facility] [place] [address] [place] [address] ProviderRadha MD [address] [place] [address] Social History Tobacco Use Types [...]
--- OUTSIDE RECORDS SUMMARY | 2025-04-14 11:17 | XMS_ITS | Encounter Summary ---
Author Organization [employer] ([place], [place], [place], [place], [place]) Address [address] [place] [address] Care Team Providers Care Fountain Waitress/Waiter Name Role Phone Unavailable Primary Care Provider Unavailabl e Encounter Details Date Type Department Care Team (Late st Contact Info) Description 10/03/2020 Transcribed Document [facility] [place] [address] [place] [address] ProviderRadha MD [address] [place] [address] Social History Tobacco Use Types [...] 10/03/2020 5:34 EDT Electronically signed by Angela [facility] Conversion Tablet Making Machine Operator Helper Cerner at 08/02/2022 6:08 PM CDT documented in this encounter Plan of Treatment Not on file documented as of this encounter Visit Diagnoses Not on filedocumented in this encounter
--- OUTSIDE RECORDS SUMMARY | 2025-04-14 11:17 | XMS_ITS | Encounter Summary ---
Author Organization [employer] ([place], [place], [place], [place], [place]) Address [address] [place] [address] Care Team Providers Care Car Refinisher Name Role Phone Unavailable Primary Care Provider Unavailabl e Encounter Details Date Type Department Care Team (Late st Contact Info) Description 10/05/2020 Transcribed Document [facility] Radiology [address] [place] [address] Malu Pemberton MD [address] [place] [address] [address] Social History Tobacco Use Types [...]
--- OUTSIDE RECORDS SUMMARY | 2025-04-14 11:17 | XMS_ITS | Encounter Summary ---
Author Organization [employer] ([place], [place], [place], [place], [place]) Address [address] [place] [address] Care Team Providers Care Childcare Worker Name Role Phone Unavailable Primary Care Provider Unavailabl e Encounter Details Date Type Department Care Team (Late st Contact Info) Description 09/29/[address] [facility] [place] Family Medicine [address] [place] [address] ProviderRadha MD [address] [place] [address] Social History Tobacco Use Types [...] of gross fluid overload was transferred to [facility] from [facility] with hyponatremia. The patient story is that on 07/25, she weighed 230 pounds, with a history of having some mild lower extremity edema. She reports she gained approximately 100 pounds of water weight in 3 days on 07/28. She was hospitalized at [facility], was intermittently hypotensive and having lower extremity weakness. She improved and was discharged back to [facility], where for the past 2 weeks she [...] care. BMI: 63.4 SARS-CoV-2 screening PCR: neg [facility] 09/29 Diet: regular, fluid restriction DVT ppx: heparin 5000 q8 Code: full Medications, labs, imaging, and available medical records reviewed. Discussed w/ RN Dictated using [employer] Speech Recognition software - unidentified coke loader errors may be present. Jade Curiel DO [facility] [phone] Orders: acetaminophen, 650 mg, Oral, Tab, Q4H, [...] EDT cefTRIAXone, 1 Gram, IV Piggyback, Inj, G32DEis, infuse over 30 Minute(s), Routine, Start 09/30/20 [...] = 1 Cap, Oral, Daily Potassium Chloride (Wcw-Mpcm-Pqd 10) 10 mEq oral tablet, extended release Allergies No active allergies Social History quit smoking 5 years ago no alcohol currently lives at [place] Family History Dad and cousin from [place] Lab Results Test Name Test Result Date/Time [...] # 0.41 x10(3)/uL (Low) 09/29/2020 23:04 EDT [place] % 3.0 % 09/29/2020 23:04 EDT [place] # 0.34 K/uL 09/29/2020 23:04 EDT Eos [...] Full Code, Continuous Order Electronically signed by Angela [facility] Conversion Tax Examining Technician Cerner at 08/02/2022 6:10 PM CDT documented in this encounter Plan of Treatment Not on file documented as of this encounter Visit Diagnoses Not on filedocumented in this encounter
--- OUTSIDE RECORDS SUMMARY | 2025-04-14 11:17 | XMS_ITS | Encounter Summary ---
Author Organization [employer] ([place], [place], [place], [place], [place]) Address [address] [place] [address] Care Team Providers Care Automotive Electrical Fitter Name Role Phone Unavailable Primary Care Provider Unavailabl e Encounter Details Date Type Department Care Team (Late st Contact Info) Description 10/11/2020 Transcribed Document [facility] [place] [address] [place] [address] ProviderRadha MD [address], [place] [address] Social History Tobacco Use Types Packs/Day Years [...] RIGHT EAR Provider Notified of : Family/Patient traffic representative requests a call Provider Notified Name : HOSSEIN CARRILLO MD Provider Notified Time : 10/11/2020 5:40 EDT Chain of Command Initiated : Yes Results to Provider Comment : DR CARRILLO told will come and see patient later as he has two transfer Yovana Whelan Non Emp RN - 10/11/2020 6:41 EDT Electronically signed by Angela [facility] Conversion Denture Packer Cerner at 08/02/2022 6:19 PM CDT documented in this encounter Plan of Treatment Not on file documented as of this encounter Visit Diagnoses Not on filedocumented in this encounter
--- OUTSIDE RECORDS SUMMARY | 2025-04-14 11:17 | XMS_ITS | Referral Summary ---
Author Organization [employer] ([place], [place], [place], [place], [place]) Address [address] [place] [address] Care Team Providers Care Manager Financial Systems Name Role Phone Unavailable Primary Care Provider [...]
--- OUTSIDE RECORDS SUMMARY | 2025-04-14 11:18 | XMS_ITS | Encounter Summary ---
Author Organization [employer] ([place], [place], [place], [place], [place]) Address [address] [place] [address] Care Team Providers Care Rotary Operator Name Role Phone Unavailable Primary Care Provider Unavailabl e Encounter Details Date Type Department Care Team (Late st Contact Info) Description 10/07/[address] [facility] Radiology [address] [place] [address] Malu Pemberton MD [address] [place] [address] [address] Social History Tobacco Use Types [...]
--- OUTSIDE RECORDS SUMMARY | 2025-04-14 11:18 | XMS_ITS | Encounter Summary ---
Author Organization [employer] ([place], [place], [place], [place], [place]) Address [address] [place] [address] Care Team Providers Care Photogravure Press Operator Name Role Phone Unavailable Primary Care Provider Unavailabl e Encounter Details Date Type Department Care Team (Late st Contact Info) Description 09/30/2020 Transcribed Document [facility] [place] Family Medicine [address] [place] [address] ProviderRadha MD [address], [place] [...] Health Plan: [employer] Policy Number: [id number] Authorization Number: Insurance 2 Health Plan: MEDICAID [place] Policy Number: [id number] Authorization Number: Insurance Primary Name : [employer] P[employer] Policy Number: [id number] Authorization Status-Primary : Awaiting callback Reference Number-Primary : [id number] Authorized Service Begin Date-Primary : 09/29/2020 EDT [...]
--- OUTSIDE RECORDS SUMMARY | 2025-04-14 11:18 | XMS_ITS | Encounter Summary ---
Author Organization [employer] ([place], [place], [place], [place], [place]) Address [address] [place] [address] Care Team Providers Care Battery Filler Name Role Phone Unavailable Primary Care Provider Derrell rose Encounter Details Date Type Department Care Team (Late st Contact Info) Description 09/30/2020 Transcribed Document [facility] [place] Medicine [address] [place] [address] ProviderRadha MD [address] [place] [address] Social History Tobacco Use Types [...] Rocephin: 1 Gram, 100 mL/Hr, IV Piggyback, [id number] Roxicodone: 5 mg, Oral, Q4H, PRN: Pain [...] BID, 60 Each, 0 Refill(s) Potassium Chloride ([id number]-[id number] 10) 10 mEq oral tablet, extended release: [...] History of obstructive sleep apnea / IMO [id number] / Confirmed, Active Problems (1) History of [...] check on echo medically complex time 35mins Electronically signed by Galen Miller Conversion Medical Collections Representative Cerner at 08/02/2022 6:07 PM CDT documented in this encounter Plan of Treatment Not on file documented as of this encounter Visit Diagnoses Not on filedocumented in this encounter
--- OUTSIDE RECORDS SUMMARY | 2025-04-14 11:18 | XMS_ITS | Encounter Summary ---
Author Organization [employer] ([place], [place], [place], [place], [place]) Address [address] [place] [address] Care Team Providers Care Treating Plant Pumper Name Role Phone Unavailable Primary Care Provider Unavailabl e Encounter Details Date Type Department Care Team (Late st Contact Info) Description 09/30/2020 Transcribed Document [facility] [place] [address] [place] [address] ProviderRadha MD [address] [place] [address] Social History Tobacco Use Types [...] Maximal assistance (Comment: x 2 [JO-ANN MILES, [facility] 10/07/2020 12:32 EDT] ) Bed Roll Right : Rehab Maximal assistance (Comment: x 2 [JO-ANN MILES, [facility] 10/07/2020 12:32 EDT] ) Bed Scooting : Rehab Total assistance (Comment: x 2 [MILESKALAEN, [facility] 10/07/2020 12:32 EDT] ) JO-ANN MILES [facility] 10/07/2020 12:32 EDT Gait Training/Assessment, PT Gait Assistance Level : Unable to assess/activity not appropriate Gait Training Comment : pt not agreeable to OOB today JO-ANN MILES [facility] 10/07/2020 12:32 EDT Cognitive Treatment, PT Orientation : Oriented x 4 JO-ANN MILES [facility] 10/07/2020 12:32 EDT Edu Topics Physical Therapy Education Grid Bed Mobility Training : Needs further teaching Gait Training : Needs further teaching Role of Physical Therapy : Verbalizes understanding Safety : Needs further teaching Transfer Training : Needs further teaching JO-ANN MILES [facility] 10/07/2020 12:32 EDT Indication Assesessment, PT Physical Therapy Indicated : Yes JO-ANN MILES [facility] 10/07/2020 12:32 EDT Plan of Care, PT PT Tx Plan/Goals Established w Patient : Yes JO-ANN MILES [facility] 10/07/2020 12:32 EDT Short Term Goals Mobility/Bed Mobility STG PT Grid Goal #1 Goal #2 Activity : Supine to sit Assist : Assist, maximal Date to Meet : 10/07/2020 EDT Goal Status : Progressing, continue Comment : SEE GOALS BELOW JO-ANN MILES [facility] 10/07/2020 12:32 EDT MILESJO-ANN BEAUCHAMPARTURO 10/07/2020 12:32 [...] : 10/04/2020 EDT 10/04/2020 EDT JO-ANN MILES [facility] 10/07/2020 12:32 EDT JO-ANN MILES, SEED LABORATORY TECHNICIAN - 10/07/2020 12:32 EDT Steam Service Inspector Goals Mobility/Bed Mobility LTG PT Grid Goal #1 Goal #2 Activity : Supine to sit Sit to stand Assist : Assist, moderate Assist, moderate Equipment : Other: adenike RWx Date to Meet : 10/14/2020 EDT 10/14/2020 EDT Goal Status : Progressing, continue Intial Goal GINGERKALAEN, SEED LABORATORY TECHNICIAN - 10/07/2020 12:32 EDT GINGERKALAEN, ARTURO - 10/07/2020 12:32 EDT Transfer LTG Grid Goal #1 Destination : Chair, with arms Type : Stand Pivot Sit Assist : Assist, moderate Date to Meet : 10/14/2020 EDT Goal Status : Intial Goal JO-ANN MILES, ARTURO - 10/07/2020 12:32 EDT Ambulation LTG Grid Goal #1 Device : Other: [facility] RWx Distance : 20 ft [...] 10/07/2020 12:[address] [facility] PT Charges SEED LABORATORY TECHNICIAN PT Ther Activities Ea 15 Min-SEED LABORATORY TECHNICIAN : 2 JO-ANN MILES PTA - 10/07/2020 12:32 EDT Electronically signed by Angela, [facility] Conversion X Ray Examiner Of Aircraft Cerner at 08/05/2022 9:06 AM CDT documented in this encounter Plan of Treatment Not on file documented as of this encounter Visit Diagnoses Not on filedocumented in this encounter
--- OUTSIDE RECORDS SUMMARY | 2025-04-14 11:18 | XMS_ITS | Encounter Summary ---
Author Organization [employer] ([place], [place], [place], [place], [place]) Address [address] [place] [address] Care Team Providers Care Epic Trainer Name Role Phone Unavailable Primary Care Provider Unavailabl e Encounter Details Date Type Department Care Team (Late st Contact Info) Description 09/30/2020 Transcribed Document [facility] [place] Medicine [address] [place] [address] ProviderRadha MD [address] [place] [address] Social History Tobacco Use Types [...]
--- OUTSIDE RECORDS SUMMARY | 2025-04-14 11:18 | XMS_ITS | Patient Health Record ---
Author Organization [facility] Address [address] [place] [address] Care Team Providers Care Epilepsy Physician Name Role Phone YoClarence Primary Care Provider Wendy Payne Unavailable [phone] Wendy Cortez Unavailable [phone] Migration, Provider Unavailable Unavailable Allergies Allergen (clinical drug ingredient) Drug/Non Drug Allergy documented on EMR Reaction Allergy Type Onset Date Status Fish FISH (uncoded) Unknown Allergy Activ e hydromorphone Dilaudid Unknown Drug Allergy Act caro morphine Morphine Unknown Drug Allergy Active Penicillin Unknown Drug Allergy Active Results Component Value Reference Range Flag Notes M-Complete Blood Count Auto Diff Reviewed date:11/04/2024 06:13:14 PM Interpretation: Performing Lab: Notes/Report: WBC 9.4 4.8-10.8 K/mm3 N RBC 5.08 4.20-5.40 M/mm3 N HGB 14.2 12.2-16.2 g/dL N HCT 43.8 37.0-47.0 % N MCV 86.2 81-99 fl N MCH 28.0 27.0-31.2 pg N MCHC 32.4 31.8-35.4 g/dL N RDW 14.3 11.5-17.5 % N PLT 373 142-424 K/mm3 N MPV 9.6 7.4-10.4 fl N NE% 63.4 37.0-80.0 % N LY% 25.1 10-50 % N MO% 8.2 1.7-9.3 % N EO% 2.2 0.1-12.0 % N BA% 0.6 0.1-2.0 % N NE# 6.0 1.8-7.8 K/mm3 N LY# 2.4 0.7-4.5 K/mm3 N MO# 0.8 0.1-1.0 K/mm3 N EO# 0.2 0.0-0.4 Kmm3 N BA# 0.1 0-0.2 K/mm3 N RDW-SD 45.0 N NRBC% 0 N IG% 0.5 N NRBC# 0 N IG# 0.05 N TSH W/REFLEX TO FT4 (81240) Reviewed date:02/12/2025 12:10:59 PM Interpretation: Performing Lab:[facility] [employer], [place] [id number] Ajay Culver Notes/Report: NON-FASTING; NON-FASTING; NON-FASTING; NON-FASTING; NON-FAST FASTING:YES FASTING: YES TSH W/REFLEX TO FT4 1.19 0.40-4.50 mIU/L N HEMOGLOBIN A1c (496) Reviewed date:02/12/2025 12:10:59 PM Interpretation: Performing Lab:[facility] [employer], [place] QsdyRB[address] Ajay Culver Notes/Report: NON-FASTING; NON-FASTING; NON-FASTING; NON-FASTING; NON-FAST FASTING:YES FASTING: YES HEMOGLOBIN A1c 6.6 <5.7 % H For someone without known diabetes, a hemoglobin [...] A1c for diagnosis of diabetes for children. CBC (INCLUDES DIFF/PLT) (639 9) Reviewed date:02/12/2025 12:10:59 PM Interpretation: Performing Lab:[facility] [employer], [place] [id number] Ajay Culver Notes/Report: NON-FASTING; NON-FASTING; NON-FASTING; NON-FASTING; NON-FAST FASTING:YES FASTING: YES WHITE BLOOD CELL COUNT 6.2 3.8-10.8 Thousand/uL N RED BLOOD CELL COUNT 5.24 3.80-5.10 Million/uL H HEMOGLOBIN 15.4 11.7-15.5 g/dL N HEMATOCRIT 46.6 35.0-45.0 % H MCV 88.9 80.0-100.0 fL N MCH 29.4 27.0-33.0 pg N MCHC 33.0 32.0-36.0 g/dL N condition. For adults, a slight decrease in the calculated MCHC value (in the range of 30 to 32 g/dL) is most likely not clinically significant; however, it should be interpreted with caution in correlation with other red cell parameters and the patient's clinical RDW 12.9 11.0-15.0 % N PLATELET COUNT 311 140-400 Thousand/uL N MPV 10.3 7.5-12.5 fL N ABSOLUTE NEUTROPHILS 3106 5411-3164 cells/uL N ABSOLUTE LYMPHOCYTES 2151 850-3900 cells/uL N ABSOLUTE MONOCYTES 515 200-950 cells/uL N ABSOLUTE EOSINOPHILS 360 15-500 cells/uL N ABSOLUTE BASOPHILS 68 0-200 cells/uL N NEUTROPHILS 50.1 N LYMPHOCYTES 34.7 N MONOCYTES 8.3 N EOSINOPHILS 5.8 N BASOPHILS 1.1 N COMPREHENSIVE ESSENTIA HEALTHE (42115) Reviewed date:02/12/2025 12:10:59 PM Interpretation: Performing Lab:CB, [facility] [id number] [facility], [facility] CenterKgzcZO[address] Ajay Culver Notes/Report: NON-FASTING; NON-FASTING; NON-FASTING; NON-FASTING; NON-FAST FASTING:YES FASTING: YES GLUCOSE 98 65-99 mg/dL N Fasting reference interval UREA NITROGEN (BUN) 26 7-25 mg/dL H CREATININE 1.07 0.50-1.05 mg/dL H EGFR 58 > OR = 60 mL/min/1.73m2 L BUN/CREATININE RATIO 24 6-22 (calc) H SODIUM 140 135-146 mmol/L N POTASSIUM 5.1 3.5-5.3 mmol/L N CHLORIDE 104 98-110 mmol/L N CARBON DIOXIDE 25 20-32 mmol/L N CALCIUM 9.2 8.6-10.4 mg/dL N PROTEIN, TOTAL 6.8 6.1-8.1 g/dL N ALBUMIN 3.9 3.6-5.1 g/dL N GLOBULIN 2.9 1.9-3.7 g/dL (calc) N ALBUMIN/GLOBULIN RATIO 1.3 1.0-2.5 (calc) N BILIRUBIN, TOTAL 0.8 0.2-1.2 mg/dL N ALKALINE PHOSPHATASE 91 37-153 U/L N AST 18 10-35 U/L N ALT 16 6-29 U/L N LIPID PANEL, STANDARD (7600) Reviewed date:02/12/2025 12:10:59 PM Interpretation: Performing Lab:[facility] [employer] [id number] [facility] CenterIakfSM[address] Ajay Culver Notes/Report: NON-FASTING; NON-FASTING; NON-FASTING; NON-FASTING; NON-FAST FASTING:YES FASTING: YES CHOLESTEROL, TOTAL 119 <200 mg/dL N HDL CHOLESTEROL 53 > OR = 50 mg/dL N TRIGLYCERIDES 97 <150 mg/dL N LDL-CHOLESTEROL 48 N better accuracy than the Friedewald equation in the estimation of LDL-C. Floyd SS et al. NURA. 2013;310(19): 9538-9278 (http://[employer]/faq/XJX615) Reference range: <100 Desirable range <100 mg/dL for primary prevention; <70 mg/dL for patients with CHD or diabetic patients with > or = 2 CHD risk factors. LDL-C is now calculated using the Floyd-Alaniz calculation, which is a validated novel method providing CHOL/HDLC RATIO 2.2 <5.0 (calc) N NON HDL CHOLESTEROL 66 <130 mg/dL (calc) N For patients with diabetes plus 1 major ASCVD risk factor, treating to a non-HDL-C goal of <100 mg/dL (LDL-C of <70 mg/dL) is considered a therapeutic option. TSH W/REFLEX TO FT4 (90853) Reviewed date:08/30/2024 12:36:40 PM Interpretation: Performing Lab:[facility] [id number] [employer], [facility] CenterVsexPG[address] Ajay Culver Notes/Report: NON-FASTING; NON-FASTING; NON-FASTING; NON-FASTING; NON-FAST TSH W/REFLEX TO FT4 0.80 0.40-4.50 mIU/L N VITAMIN B12 (927) Reviewed date:08/30/2024 12:36:40 PM Interpretation: Performing Lab:[facility] [employer] [id number] [facility]ang[facility], [facility] CenterIivoTV[address] Ajay Culver Notes/Report: NON-FASTING; NON-FASTING; NON-FASTING; NON-FASTING; NON-FAST VITAMIN B12 780 460-9978 pg/mL N C-REACTIVE PROTEIN (4420) Reviewed date:08/30/2024 12:36:40 PM Interpretation: Performing Lab:[facility] [employer] Aocc3216 [facility], [facility] CenterGtxrXF[address] Ajay Culver Notes/Report: NON-FASTING; NON-FASTING; NON-FASTING; NON-FASTING; NON-FAST C-REACTIVE PROTEIN <3.0 <8.0 mg/L N CBC (INCLUDES DIFF/PLT) (639 9) Reviewed date:08/30/2024 12:36:40 PM Interpretation: Performing Lab:[facility] [employer] [id number] [facility], [facility] CenterGicsKN[address] Ajay Culver Notes/Report: NON-FASTING; NON-FASTING; NON-FASTING; NON-FASTING; NON-FAST WHITE BLOOD CELL COUNT 6.8 3.8-10.8 Thousand/uL N RED BLOOD CELL COUNT 5.36 3.80-5.10 Million/uL H HEMOGLOBIN 15.5 11.7-15.5 g/dL N HEMATOCRIT 48.6 35.0-45.0 % H MCV 90.7 80.0-100.0 fL N MCH 28.9 27.0-33.0 pg N MCHC 31.9 32.0-36.0 g/dL L For adults, a slight decrease in the calculated MCHC value (in the range of 30 to 32 g/dL) is most likely not clinically significant; however, it should be interpreted with caution in correlation with other red cell parameters and the patient's clinical condition. RDW 14.2 11.0-15.0 % N PLATELET COUNT 303 140-400 Thousand/uL N MPV 10.3 7.5-12.5 fL N ABSOLUTE NEUTROPHILS 4121 1572-6358 cells/uL N ABSOLUTE LYMPHOCYTES 5914 658-4702 cells/uL N ABSOLUTE MONOCYTES 483 200-950 cells/uL N ABSOLUTE EOSINOPHILS 163 15-500 cells/uL N ABSOLUTE BASOPHILS 68 0-200 cells/uL N NEUTROPHILS 60.6 N LYMPHOCYTES 28.9 N MONOCYTES 7.1 N EOSINOPHILS 2.4 N BASOPHILS 1.0 N CREATINE KINASE, TOTAL (374) Reviewed date:08/30/2024 12:36:40 PM Interpretation: Performing Lab:[facility], [employer] [id number] Mittel Ro[address]yn, eFinancial CommunicationsIacvHZ[address] Ajay Culver Notes/Report: NON-FASTING; NON-FASTING; NON-FASTING; NON-FASTING; NON-FAST CREATINE KINASE, TOTAL 53 20-243 U/L N MAGNESIUM (622) Reviewed date:08/30/2024 12:36:40 PM Interpretation: Performing Lab:[facility] [employer]-[address]ce[address], [place] ZipdNQ[address] Ajay Culver Notes/Report: NON-FASTING; NON-FASTING; NON-FASTING; NON-FASTING; NON-FAST MAGNESIUM 2.2 1.5-2.5 mg/dL N COMPREHENSIVE METABOLIC PANE L (43848) Reviewed date:08/30/2024 12:36:40 PM Interpretation: Performing Lab:[facility] [employer] [id number] [address] Ro[address]yn, QinecEuwcUY[address] Ajay Culver Notes/Report: NON-FASTING; NON-FASTING; NON-FASTING; NON-FASTING; NON-FAST GLUCOSE 220 65-99 mg/dL H Fasting reference interval For someone without known diabetes, a glucose value >125 mg/dL indicates that they may have diabetes and this should be confirmed with a follow-up test. UREA NITROGEN (BUN) 29 7-25 mg/dL H CREATININE 0.90 0.50-1.05 mg/dL N EGFR 72 > OR = 60 mL/min/1.73m2 N BUN/CREATININE RATIO 32 6-22 (calc) H SODIUM 140 135-146 mmol/L N POTASSIUM 4.3 3.5-5.3 mmol/L N CHLORIDE 102 98-110 mmol/L N CARBON DIOXIDE 28 20-32 mmol/L N CALCIUM 9.0 8.6-10.4 mg/dL N PROTEIN, TOTAL 6.9 6.1-8.1 g/dL N ALBUMIN 4.0 3.6-5.1 g/dL N GLOBULIN 2.9 1.9-3.7 g/dL (calc) N ALBUMIN/GLOBULIN RATIO 1.4 1.0-2.5 (calc) N BILIRUBIN, TOTAL 0.4 0.2-1.2 mg/dL N ALKALINE PHOSPHATASE 87 37-153 U/L N AST 16 10-35 U/L N ALT 17 6-29 U/L N M-Lipase Reviewed date:11/04/2024 06:13:23 PM Interpretation: Performing Lab: Notes/Report: LIP 210 23-300 U/L N M-Amylase Reviewed date:11/04/2024 06:13:19 PM Interpretation: Performing Lab: Notes/Report: NEEL 81 30-110 U/L N TSH W/REFLEX TO FT4 ([id number]) Reviewed date:07/16/2024 10:06:22 AM Interpretation: Performing Lab:[facility] [employer] [id number] [address] Ro[address], eFinancial CommunicationsBhenVH[address] Ajay Culver Notes/Report: NON-FASTING; NON-FASTING; NON-FASTING; NON-FASTING; NON-FAST TSH W/REFLEX TO FT4 0.86 0.40-4.50 mIU/L N HEMOGLOBIN A1c (496) Reviewed date:07/16/2024 10:06:22 AM Interpretation: Performing Lab:[facility] [employer] [id number] [address] Roovyn, MarketInvoiceGmviAY[address] Ajay uClver Notes/Report: NON-FASTING; NON-FASTING; NON-FASTING; NON-FASTING; NON-FAST HEMOGLOBIN A1c 7.0 <5.7 % of total Hgb H For someone without known diabetes, a hemoglobin [...] A1c for diagnosis of diabetes for children. CBC (INCLUDES DIFF/PLT) (639 9) Reviewed date:07/16/2024 10:06:22 AM Interpretation: Performing Lab:[facility] [employer] [id number] [facility], [facility] CenterTqnjCY[address] Ajay Culver Notes/Report: NON-FASTING; NON-FASTING; NON-FASTING; NON-FASTING; NON-FAST WHITE BLOOD CELL COUNT 7.8 3.8-10.8 Thousand/uL N RED BLOOD CELL COUNT 5.26 3.80-5.10 Million/uL H HEMOGLOBIN 14.7 11.7-15.5 g/dL N HEMATOCRIT 45.9 35.0-45.0 % H MCV 87.3 80.0-100.0 fL N MCH 27.9 27.0-33.0 pg N MCHC 32.0 32.0-36.0 g/dL N For adults, a slight decrease in the calculated MCHC value (in the range of 30 to 32 g/dL) is most likely not clinically significant; however, it should be interpreted with caution in correlation with other red cell parameters and the patient's clinical condition. RDW 13.4 11.0-15.0 % N PLATELET COUNT 338 140-400 Thousand/uL N MPV 10.2 7.5-12.5 fL N ABSOLUTE NEUTROPHILS 5359 9769-2129 cells/uL N ABSOLUTE LYMPHOCYTES 7601 614-4105 cells/uL N ABSOLUTE MONOCYTES 491 200-950 cells/uL N ABSOLUTE EOSINOPHILS 218 15-500 cells/uL N ABSOLUTE BASOPHILS 62 0-200 cells/uL N NEUTROPHILS 68.7 N LYMPHOCYTES 21.4 N MONOCYTES 6.3 N EOSINOPHILS 2.8 N BASOPHILS 0.8 N MAGNESIUM (622) Reviewed date:07/16/2024 10:06:22 AM Interpretation: Performing Lab:[facility] [employer] [id number] [facility] MultimediateCare [facility], [facility] CenterJdjyHL[address] Ajay Culver Notes/Report: NON-FASTING; NON-FASTING; NON-FASTING; NON-FASTING; NON-FAST MAGNESIUM 2.2 1.5-2.5 mg/dL N COMPREHENSIVE METABOLIC PANE L (81127) Reviewed date:07/16/2024 10:06:22 AM Interpretation: Performing Lab:[facility] [employer] [id number] [facility], [facility] CenterIblzJY[address] Ajay Culver Notes/Report: NON-FASTING; NON-FASTING; NON-FASTING; NON-FASTING; NON-FAST GLUCOSE 89 65-99 mg/dL N Fasting reference interval UREA NITROGEN (BUN) 30 7-25 mg/dL H CREATININE 0.92 0.50-1.05 mg/dL N EGFR 70 > OR = 60 mL/min/1.73m2 N BUN/CREATININE RATIO 33 6-22 (calc) H SODIUM 139 135-146 mmol/L N POTASSIUM 4.4 3.5-5.3 mmol/L N CHLORIDE 101 98-110 mmol/L N CARBON DIOXIDE 28 20-32 mmol/L N CALCIUM 9.3 8.6-10.4 mg/dL N PROTEIN, TOTAL 6.8 6.1-8.1 g/dL N ALBUMIN 3.8 3.6-5.1 g/dL N GLOBULIN 3.0 1.9-3.7 g/dL (calc) N ALBUMIN/GLOBULIN RATIO 1.3 1.0-2.5 (calc) N BILIRUBIN, TOTAL 0.4 0.2-1.2 mg/dL N ALKALINE PHOSPHATASE 88 37-153 U/L N AST 16 10-35 U/L N ALT 16 6-29 U/L N LIPID PANEL, STANDARD (7600) Reviewed date:07/16/2024 10:06:22 AM Interpretation: Performing Lab:[facility] [employer] [id number] [facility], [facility] CenterXarcVY[address] Ajay Culver Notes/Report: NON-FASTING; NON-FASTING; NON-FASTING; NON-FASTING; NON-FAST CHOLESTEROL, TOTAL 116 <200 mg/dL N HDL CHOLESTEROL 44 > OR = 50 mg/dL L TRIGLYCERIDES 124 <150 mg/dL N LDL-CHOLESTEROL 51 N Reference range: <100 Desirable range <100 mg/dL for primary prevention; <70 mg/dL for patients with CHD or diabetic patients with > or = 2 CHD risk factors. LDL-C is now calculated using the Meryl calculation, which is a validated novel method providing better accuracy than the Friedewald equation in the estimation of LDL-C. Floyd CARLSON et al. NURA. 2013;310(89): 4025-5274 (http://education.QuestDi agnostics.com/faq/TPK323) CHOL/HDLC RATIO 2.6 <5.0 (calc) N NON HDL CHOLESTEROL 72 <130 mg/dL (calc) N For patients with diabetes plus 1 major ASCVD risk factor, treating to a non-HDL-C goal of <100 mg/dL (LDL-C of <70 mg/dL) is considered a therapeutic option. CULTURE, URINE, ROUTINE (395 ) Reviewed date:10/14/2024 02:50:35 PM Interpretation: Performing Lab:[facility], [employer]ere1355 [facility], [facility] CenterBtpcJZ[address] Ajay Culver Notes/Report: CULTURE, URINE, ROUTINE SEE NOTE CULTURE, URINE, ROUTINE Micro Number: [id number] Test Status: Final Specimen Source: Urine Specimen Quality: Adequate Result: Non-uropathogenic Gram positive organism May represent colonizers from external and internal genitalia. No further testing (including susceptibility) will be performed. Urinalysis Reviewed date:10/09/2024 12:36:57 PM Interpretation: Performing Lab: Notes/Report: Color/Clarity yellow Leuk neg Nitrite neg Urobili 0.2 Protein 100 pH 5.5 Blood trace Sp. Gr. 1.025 Ketone neg Bili neg Glucose neg M-Comprehensive Metabolic Pa carlos Reviewed date:11/04/2024 06:13:29 PM Interpretation: Performing Lab: Notes/Report: NA 134 136-145 mmol/L L K 4.6 3.5-5.1 mmoL/L N CL 100 98-107 mmol/L N CO2 25 22.0-30.0 mmol/L N GAP 13.6 5-15 mEq/L N BUN 17 7-17 mg/dl N CREATT 1.00 0.52-1.04 mg/dl N GFRAA 68 >60 ML/MIN N EGFR 56 >60 ml/min L GLU 125 74-100 mg/dl H CA 8.8 8.4-10.2 mg/dl N BILIT 0.5 0.2-1.3 mg/dl N AST 23 14-36 U/L N ALT 19 12-78 U/L N TP 6.7 6.3-8.2 g/dl N ALB 3.8 3.5-5.0 g/dl N GLOB 2.9 1.3-3.2 g/dL N AGRATIO 1.3 1.1-1.8 N ALP 84 38-126 U/L N Medications Medication SIG (Take, Route, Frequency, Duration) Notes Start Date End Date Status Farxiga 10 MG Tablet 1 tab(s) orally onc e a day; Duration: 90 days Active Bumetanide 1 MG Tablet 1 tab(s) orally 2 times a day; Duration: 90 days Active MIDODRINE HYDROCHLORIDE 10 MG TABLET 1 TAB(S) ORALLY 3 TIMES A DAY NEEDED; Duration: 90 DAYS prn Active Dexcom G7 Sensor - Miscellaneous as directed for CGM; Duration: 30 days DX: E11.69 02/10/2025 Active Spironolactone 25 MG Tablet 2 tabs orally once a day; Duration: 90 days Active Advair HFA 115 MCG-21 MCG AEROSOL 2 INH INHALED 2 TIMES A DAY Active Multivitamin - Tablet 1 tab(s) orally on ce a day Active Calcium 600 + D 600 MG-20 MCG TABLET 1 TAB(S) ORALLY 2 TIMES A DAY; Duration: 30 DAY(S) Active HumaLOG KwikPen 100 UNIT/ML Solution Pen-injector 4 units subcutaneously 3 times a day with meals 09/28/2023 Active Lantus 100 unit/mL Solution INJECT 40 UNITS SUBCUTANEOUSLY ONCE A DAY; Duration: 25 Active Promethazine HCl 12.5 MG Tablet 1 tablet as needed Orally every 8 hours; Duration: 5 days As needed nausea. 10/09/2024 Active Potassium Chloride ER 10 mEq Capsule Extended Release TAKE 2 CAPSULES BY MOUTH 2 TIMES A DAY; Duration: 30 Active Acetaminophen 500 MG Tablet 1 tablet orally every 6 hours as needed for pain or fever 04/06/2021 Active Dicyclomine HCl 20 MG Tablet 1 tab(s) orally every 6 hours as needed for stomach cramping or diarrhea; Duration: 10 days 07/26/2021 Active Famotidine 20 MG Tablet 1 tab(s) orally once a day (at bedtime); Duration: 90 days Active Cetirizine HCl 10 MG Tablet 1 tab(s) orally once a day; Duration: 30 days Active tiZANidine HCl 2 mg Tablet TAKE 1 TABLET BY MOUTH 2 TIMES A DAY; Duration: 30 Active Levothyroxine Sodium 50 MCG Tablet 1 tab(s) orally once a day; Duration: 90 days Active BD Pen Needle Brandy 2nd Gen 32G X 4 MM Miscellaneous as directed once a day; Duration: 90 days 01/28/2025 Active Gabapentin 100 mg Capsule TAKE 2 CAPSULES BY MOUTH 2 TIMES A DAY; Duration: 30 02/02/2025 Active Atorvastatin Calcium 40 MG Tablet 1 tab(s) orally once a day; Duration: 90 days Active Montelukast Sodium 10 MG Tablet 1 tab(s) orally once a day; Duration: 90 days Active Nystop 407774 UNIT/GM Powder 1 application Externally Twice a day; Duration: 10 days 02/10/2025 Active Diclofenac Sodium 1 % Gel 2 grams applied topically 4 times a day to knees and prn; Duration: 30 days 04/06/2021 Active Senna Plus 8.6-50 MG Tablet 1 tablet orally 2 times a day as needed for constipation; Duration: 30 days Active Magnesium Oxide 400 MG Tablet 1 tab(s) orally once a day; Duration: 30 day(s) Active Dexcom G7 Education Department Registrar - Device as directed for CGM; Duration: 30 days DX: E11.69 02/10/2025 Active Aspirin Low Dose 81 MG Tablet Delayed Release TAKE ONE TABLET BY MOUTH ONCE A DAY Active Omeprazole 40 MG Capsule Delayed Release 1 cap(s) orally once a day; Duration: 90 days Active Ozempic (2 MG/DOSE) 8 MG/3ML Solution Pen-injector INJECT 2 MG SUBCUTANEOUSLY ONCE WEEKLY; Duration: [...] stop date) Former Smoker NA - NA Social History Social History Social Info Question Answer Notes Smoking: Are you a: former smoker How long has it been since you last smoked? 1-5 years Additional Details Category Social Info Options Details Social History Occupation: disabled Travel outside [place]: no Alcohol: no Sexually active: no Recreational drug use: no Exercise: no Home smoke detector use: yes Caffeine: yes frequency:16 oz weekly Living Will No Section Notes: stopped smoking 2015, smoked 42 [...] (Z68.33) Active confirmed Problem Information temporarily unavailable superintendent terminal (current) use of insulin (Z79.4) Active confirmed Problem Information temporarily unavailable Other chronic pain (G89.29) Active confirmed Problem Information temporarily unavailable BMI 39.0-39.9,adult (Z68.39) Active confirmed Problem Information temporarily unavailable superintendent terminal (current) use of insulin (Z79.4) Active confirmed [...] 02/10/2025 Encounters Encounter Location Date Provider Diagnosis [facility] [address] [place] [address] 07/20/2024 Provider Migration [facility] [address] [place] [address] 07/11/2024 Wendy Payne Type 2 diabetes mellitus with other specified complication E11.69 ; prison (current) use of insulin Z79.4 ; Hypothyroidism E03.9 ; Nonalcoholic steatohepatitis (FULLER) K75.81 ; Muscle spasm M62.838 ; RLS (restless legs syndrome) G25.81 and Peripheral neuropathic pain M79.2 [facility] [address] [place] [address] 08/28/2024 Wendy Diego Myalgia, multiple si natalia M79.18 and Muscle cramping R25.2 [facility] [address] [place] [address] 09/30/2024 Wendy Kerry Muscle cramping R25. 2 ; Type 2 diabetes mellitus with other specified complication E11.69 ; superintendent terminal (current) use of insulin Z79.4 ; Hypothyroidism E03.9 ; Nonalcoholic steatohepatitis (FULLER) K75.81 ; RLS (restless legs syndrome) G25.81 and Peripheral neuropathic pain M79.2 [facility] [address] [place] [address] 10/09/2024 Wendy Diego Lower abdominal pain R10.30 and Viral gastroenteritis A08.4 [facility] [address] [place] [address] 10/17/2024 Wendy Payne LUQ pain R10.12 and Nausea without vomiting R11.0 [facility] [address] [place] [address] 11/11/2024 Wendy Panence Muscle cramping R25. 2 ; Type 2 diabetes mellitus with other specified complication E11.69 ; superintendent terminal (current) use of insulin Z79.4 and Contusion of lesser toe of right foot without damage to nail, initial encounter S90.121A [facility] [address] [place] [address] 02/10/2025 Wendy Panence Muscle cramping R25. 2 ; Type 2 diabetes mellitus with other specified complication E11.69 ; superintendent terminal (current) use of insulin Z79.4 ; Hypothyroidism E03.9 ; Nonalcoholic steatohepatitis (FULLER) K75.81 ; RLS (restless legs syndrome) G25.81 ; Peripheral neuropathic pain M79.2 and Yeast dermatitis B37.2 [facility] [address] [place] [address] 05/21/2024 Clarence Ram [facility] [address] [facility] [address] [place] [address] 08/20/2024 Wendy Kerry [facility] [address] [address] 09/16/2024 Clarence Ram Type 2 diabetes mellitus with other specified complication E11.69 [facility] [address] [facility] [address] [place] [address] 10/01/2024 Wendy Kerry [facility] [address] [place] [address] 12/24/2024 Wendy Kerry LUQ pain R10.12 [facility] [address] [place] [address] 01/06/2025 Wendy Kerry [facility] [address] [facility] [address] [place] [address] 01/28/2025 Wendy Kerry Type 2 diabetes mellitus with other specified complication E11.69 [facility] [address] [facility] [address] [place] [address] 02/10/2025 Wendy Kerry Assessments Encounter Date Diagnosis (ICD Code) Assessment Notes Treatment Notes Treatment Clinical Notes Section Notes 07/11/2024 Type 2 diabetes mellitus with other specified complication (ICD-10 - E11.69) No changes recommended to medication regimen unless indicated on lab results, goal A1C < 7. Eye exam UTD. Good candidate for diabetic shoes due to her recurring edema, callus formation, neuropathic pain. 07/11/2024 superintendent terminal (current) use of insulin (ICD-10 - Z79.4) [...] current regimen, labs again in 3 months 12/24/2024 LUQ pain (ICD-10 - R10.12) 01/28/2025 Type 2 diabetes mellitus with other specified complication (ICD-10 - E11.69) 02/10/2025 Type 2 diabetes mellitus with other specified complication (ICD-10 - E11.69) Recent labs were stable. goal A1C < 7. Eye exam UTD. Repeat labs today. Will also attempt to get coverage of CGM to help with monitoring and avoidance of complications such as hypoglycemia 11/11/2024 Muscle cramping (ICD-10 - R25.2) lower extremities appear well perfused and symptoms are improved, no changes recommended 02/10/2025 Muscle cramping (ICD-10 - R25.2) Continue good fluid intake and encoruaged regular stretching and muscle relaxer as needed 02/10/2025 prison (current) use of insulin (ICD-10 - Z79.4) 11/11/2024 [facility] terminal (current) use of insulin (ICD-10 - Z79.4) 09/30/2024 Type 2 diabetes mellitus with other specified complication (ICD-10 - E11.69) Recent labs were stable. goal A1C < 7. Eye exam UTD. Good candidate for diabetic shoes due to her recurring edema, callus formation, neuropathic pain. 07/11/2024 Hypothyroidism (ICD-10 - E03.9) continue replacement 07/11/2024 Nonalcoholic steatohepatitis (FULLER) (ICD-10 - K75.81) continue dietary and weight loss efforts 09/30/2024 prison (current) use of insulin (ICD-10 - Z79.4) 11/11/2024 Contusion of lesser toe of right foot without damage to nail, initial encounter (ICD-10 - S90.121A) skin intact, discussed rest/ice and monitor for complications 02/10/2025 Hypothyroidism (ICD-10 - E03.9) continue replacement 02/10/2025 Nonalcoholic steatohepatitis (FULLER) (ICD-10 - K75.81) continue dietary and weight loss efforts 09/30/2024 Hypothyroidism (ICD-10 - E03.9) continue replacement 07/11/2024 Muscle spasm (ICD-10 - M62.838) 07/11/2024 RLS (restless legs syndrome) (ICD-10 - G25.81) low dose gabapentin 09/30/2024 Nonalcoholic steatohepatitis (FULLER) (ICD-10 - K75.81) continue dietary and weight loss efforts 02/10/2025 RLS (restless legs syndrome) (ICD-10 - G25.81) low dose gabapentin 02/10/2025 Peripheral neuropathic pain (ICD-10 - M79.2) 07/11/2024 Peripheral neuropathic pain (ICD-10 - M79.2) 09/30/2024 RLS (restless legs syndrome) (ICD-10 - G25.81) low dose gabapentin 09/30/2024 Peripheral neuropathic pain (ICD-10 - M79.2) 02/10/2025 Yeast dermatitis (ICD-10 - B37.2) Plan Of Treatment Pending Test Test Name Order Date Microalbumin (In-House) 02/10/2025 Physical Therapy 06/20/2017 Physical Therapy 08/11/2014 Physical Therapy 07/15/2009 Mammogram : Bilateral 09/19/2016 Mammogram : Bilateral [...] FERRITIN PANEL (5616) 12/2023 COMPREHENSIVE METABOLIC PANEL (83779) BASIC METABOLIC PANEL (42298) 07/25/2023 VITAMIN D,25-OH,TOTAL,IA (07506) 025 Future Test Test Name Order Date C-BASIC METABOLIC 01/22/2016 H-CBC with AUTO DIFF 07/16/2016 H-CMP 07/16/2016 H-LIPID PANEL 07/16/2016 H-HGBA1C 07/16/2016 H-SED RATE 07/16/2016 C-CMP 09/20/2016 C-LIPID PANEL 09/20/2016 C-HGBA1C 09/20/2016 Next Appt Details Provider Name:Wendy Susanna shrestha, 05/12/2025 10:00:00 AM, [address], [address], [place], [address], Insurance Providers Payer Name Payer Address Payer Phone Subscriber Number Group Number Insured Name Patient Relationship to Insured Coverage Start Date Coverage End Date [employer] MEDICARE DUAL [address] [address] [place] [phone] [id number] Hiro Luh Self - patient is the insured Medications [...]
--- OUTSIDE RECORDS SUMMARY | 2025-04-14 11:18 | XMS_ITS | Encounter Summary ---
Author Organization [employer] ([place], [place], [place], [place], [place]) Address [address] [place] [address] Care Team Providers Care Manager Combination Name Role Phone Unavailable Primary Care Provider Unavailabl e Encounter Details Date Type Department Care Team (Late st Contact Info) Description 09/30/2020 Transcribed Document [facility] [place] [address] [place] [address] ProviderRadha MD [address] [place] [address] Social History Tobacco Use Types [...] and eating ~50% of her meals. 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
--- OUTSIDE RECORDS SUMMARY | 2025-04-14 11:18 | XMS_ITS | Encounter Summary ---
Author Organization [employer] ([place], [place], [place], [place], [place]) Address [address] [place] [address] Care Team Providers Care Bleach Boiler Puller Name Role Phone Unavailable Primary Care Provider Unavailabl e Encounter Details Date Type Department Care Team (Late st Contact Info) Description 09/30/2020 Transcribed Document [facility] [place] [address] [place] [address] ProviderRadha MD [address] [place] [address] Social History Tobacco Use Types [...] Health Plan: [employer] CHOICE PPO Policy Number: [id number] Authorization Number: Insurance 2 Health Plan: MED[place]ID OF [place] Policy Number: [id number] Authorization Number: Insurance Primary Name : [employer] CHOICE PPO Policy Number: [id number] Authorization Status-Primary : Awaiting callback Authorized Service Begin Date-Primary : 09/29/2020 EDT Historical Authorization Comments-Primary : No Authorization Comments Found Daisy Davison Rn-Utilization Review - 09/30/2020 13:07 EDT Electronically signed by Angela [facility] Conversion Health Information Assistant Cerner at 08/02/2022 6:26 PM CDT documented in this encounter Plan of Treatment Not on file documented as of this encounter Visit Diagnoses Not on filedocumented in this encounter
--- OUTSIDE RECORDS SUMMARY | 2025-04-14 11:18 | XMS_ITS | Encounter Summary ---
Author Organization [employer] ([place], [place], [place], [place], [place]) Address [address] [place] [address] Care Team Providers Care Patient Access Coordinator Name Role Phone Unavailable Primary Care Provider Unavailabl e Encounter Details Date Type Department Care Team (Late st Contact Info) Description 10/06/2020 Transcribed Document [facility] Radiology [address] [place] [address] Malu Pemberton MD [address] [place] [address] [address] Social History Tobacco Use Types [...]
--- OUTSIDE RECORDS SUMMARY | 2025-04-14 11:18 | XMS_ITS | Encounter Summary ---
Author Organization [employer] ([place], [place], [place], [place], [place]) Address [address] [place] [address] Care Team Providers Care Melting Supervisor Name Role Phone Unavailable Primary Care Provider Unavailabl e Encounter Details Date Type Department Care Team (Late st Contact Info) Description 10/06/2020 Transcribed Document [facility] [place] Family Medicine [address] [place] [address] ProviderRadha MD [address] [place] [address] Social History Tobacco Use Types [...] On: 10/06/2020 13:55 EDT by KAROLINA PLEITEZ Rn-Hardening Machine Operator HelperState Appellate Clerk Progress Note Discharge Arrangements : Patient Post-Acute Information Patient Name: LUH BOSCH Gender: Female : 62 Age: 59 Years Ruth Referral(s): Service: Organization: Business Address: Phone Number: Long Term Facility [facility] [address] [place], [address] Discharge Options Discussed with Patient : Acute rehabilitation, Discharge transportation, DME, Home Health, Short term rehabilitation Barriers to Discharge Identified : Clinical Condition of Patient, Follow-Up appointments needed Barriers to Discharge Unresolved : Clinical Condition of Patient KAROLINA PLEITEZ Rn-Hardening Machine Operator Helper - 10/06/2020 13:55 EDT Narrative Progress Note Narrative Progress Note : Dr. Pemberton tells CM pt is ready to transition and is appropriate for precert to be initiated with short-term rehab; spoke with pt and she is in agreement to go to [facility]. Contacted [facility] and she will initiate the precert and confirm with Dr. Whittaker. Historical Progress Note : HD#5; ELOS 3; MRR; BOOST 7 - Generalized Edema/Anasarca = 02/2L; Vancomycin/Midodrine; declined to stand w/therapy - will need rehab r/t ongoing weakness; discussion w/pt's family about need for rehab - possible long-term placement if unable to progress; [facility] interested to discuss with MD; [facility] unable to meet pt's needs; continue to follow. KAROLINA PLEITEZ Rn-Hardening Machine Operator Helper - 10/06/20 08:58:40 Received call from pt's daughter Leslie Og and she requested referrals be sent to [facility] in [place], [place] ([employer]) and [facility] in [place], [place] ([employer]). KAROLINA PLEITEZ Rn-Hardening Machine Operator Helper - 10/05/20 15:28:00 HD#4; ELOS 3; MRR; BOOST 7 - GenEdema/Hypernatremia/Anasarca - 02=2L; B/P 105/58; PO Vancomycin; Midodrine 10 mg TID; lytes to be replaced; Nephrology has signed off; pt MaxAx2 w/therapy; updates sent thru [facility] to [facility] and left another message for f/u to confirm pt may return and anticipated turn around time for precert; DCP return for rehab; will likely require ambulance for transport; pt [facility]. KAROLINA PLEITEZ Rn-Hardening Machine Operator Helper - 10/05/20 13:37:58 HD#4; ELOS 3; MRR; BOOST 7 - GenEdema/Hypernatremia/Anasarca - 02=2L; B/P 105/58; PO Vancomycin; Midodrine 10 mg TID; lytes to be replaced; Nephrology has signed off; pt MaxAx2 w/therapy; updates sent thru [employer] to [facility] and left another message for f/u to confirm pt may return and anticipated turn around time for precert; DCP return for rehab; will likely require ambulance for transport; pt on transfer out of [facility]. Spoke with anatoly/[facility] and advised they will be unable to meet patient's needs; referral cancelled. sophia Spoke with pt's son Kishore and advised pt may require long-term care placement; he will discuss options with his sister and advise CM; initial referrals sent thru [facility] to [facility]; [facility]. KAROLINA PLEITEZ Rn-Hardening Machine Operator Helper - 10/05/20 13:54:46 HD#1; ELOS 3; MRR; BOOST 7 - GenEdema/Hypernatremia/Anasarca - improving - 02=2L; Levo gtt; Midodrine; IV Bumex; Nephrology - 24 hr urine to eval for nephrotic syndrome; +CDiff; Rocephin/Doxy/Vanc; ltd work w/therapy - refusing OOB and knee/hip AROM; pt needs to be encouraged; DCP rehab - left message for [facility] [phone] to confirm receipt of referral; pt will need precert. KAROLINA PLEITEZ Rn-Hardening Machine Operator Helper - 10/02/20 12:06:37 HD#1; ELOS 3; MRR; BOOST 7 - Transfer from [facility] for Generalized Edema; Nephrology consult; YT=[id number]; RA; Doxycycline/Rocephin; met w/pt's adult children Leslie Og and Kishore Bosch ([phone]) who states DCP will be return to [facility] for ongoing rehab; explained pt will require a precert; updates clinicals sent to [facility] and [facility] left for intake [phone]; [phone]. KAROLINA PLEITEZ Rn-Hardening Machine Operator Helper - 10/01/20 14:32:34 KAROLINA PLEITEZ Rn-Hardening Machine Operator Helper - 10/06/2020 13:55 EDT documented in this encounter Plan of Treatment Not on file documented as of this encounter Visit Diagnoses Not on filedocumented in this encounter
--- OUTSIDE RECORDS SUMMARY | 2025-04-14 11:18 | XMS_ITS | Encounter Summary ---
Author Organization [employer] ([place], [place], [place], [place], [place]) Address [address] [place] [address] Care Team Providers Care Regional Transportation Manager Name Role Phone Unavailable Primary Care Provider Unavailabl e Encounter Details Date Type Department Care Team (Late st Contact Info) Description 10/06/2020 Transcribed Document [facility] [place] [address] [place] [address] ProviderRadha MD [address] [place] [address] Social History Tobacco Use Types [...] On: 10/06/2020 8:55 EDT by KAROLINA PLEITEZ Rn-Oil BurnerUnit Assistant Progress Note Discharge Arrangements : Patient Post-Acute [...] Meeting Medical Necessity : Yes KAROLINA PLEITEZ Rn-Oil Burner - 10/06/2020 8:55 EDT Narrative Progress Note Narrative Progress Note : HD#5; ELOS 3; MRR; BOOST 7 - Generalized Edema/Anasarca = 02/2L; Vancomycin/Midodrine; declined to stand w/therapy - will need rehab r/t ongoing weakness; discussion w/pt's family about need for rehab - possible long-term placement if unable to progress; [facility] interested to discuss with MD; [facility] unable to meet pt's needs; continue to follow. Historical Progress Note : Received call from pt's daughter Leslie Og and she requested referrals be sent to [facility] in [place], [place] ([employer]) and [facility] [place], [place] ([employer]). KAROLINA PLEITEZ Rn-Oil Burner - 10/05/20 15:28:00 HD#4; ELOS 3; MRR; BOOST 7 - GenEdema/Hypernatremia/Anasarca - 02=2L; B/P 105/58; PO Vancomycin; Midodrine 10 mg TID; lytes to be replaced; Nephrology has signed off; pt MaxAx2 w/therapy; [facility] and left another message for f/u to confirm pt may return and anticipated turn around time for precert; DCP return for rehab; will likely require ambulance for transport; pt on transfer out of [facility]. KAROLINA PLEITEZ Rn-Oil Burner - 10/05/20 13:37:58 HD#4; ELOS 3; MRR; BOOST 7 - GenEdema/Hypernatremia/Anasarca - 02=2L; B/P 105/58; PO Vancomycin; Midodrine 10 mg TID; lytes to be replaced; Nephrology has signed off; pt MaxAx2 w/therapy; updates sent thru [employer] to [facility] and left another message for f/u to [...] CM; [facility]. KAROLINA PLEITEZ, Rn-Oil Burner - 10/05/20 13:54:46 HD#1; ELOS 3; MRR; BOOST 7 - GenEdema/Hypernatremia/Anasarca - improving - 02=2L; Levo gtt; Midodrine; IV Bumex; Nephrology - 24 hr urine to eval for nephrotic syndrome; +CDiff; Rocephin/Doxy/Vanc; ltd work w/therapy - refusing OOB and knee/hip AROM; pt needs to be encouraged; DCP rehab - left message for [facility] [phone] to confirm receipt of referral; pt will need precert. KAROLINA PLEITEZ Rn-Oil Burner - 10/02/20 12:06:37 HD#1; ELOS 3; MRR; BOOST 7 - Transfer from [facility] for Generalized Edema; Nephrology consult; MK=675; RA; Doxycycline/Rocephin; met w/pt's adult children Leslie Og and Kishore Bosch ([phone]) who states DCP will be return to [facility] for ongoing rehab; explained pt will require a precert; updates clinicals sent to [facility] and [facility] left for intake [phone]; [phone]. KAROLINA PLEITEZ Rn-Oil Burner - 10/01/20 14:32:34 KAROLINA PLEITEZ Rn-Oil Burner - 10/06/2020 8:55 EDT documented in this encounter Plan of Treatment Not on file documented as of this encounter Visit Diagnoses Not on filedocumented in this encounter
--- OUTSIDE RECORDS SUMMARY | 2025-04-14 11:18 | XMS_ITS | Encounter Summary ---
Author Organization [employer] ([place], [place], [place], [place], [place]) Address [address] [place] [address] Care Team Providers Care Wet End Operator Name Role Phone Unavailable Primary Care Provider Unavailabl e Encounter Details Date Type Department Care Team (Late st Contact Info) Description 09/30/2020 Transcribed Document [facility] [place] [address] [place] [address] ProviderRadha MD [address] [place] [address] Social History Tobacco Use Types [...] Historical ProviderMD - 09/30/2020 2:00 AM CDT Service Porter Details Entered On: 09/30/2020 1:26 EDT Performed [...] Marlee Richmond RN - 09/30/2020 1:26 EDT Electronically signed by Galen Miller Conversion Senior Medical Billing Specialist Cerner at 08/02/2022 6:28 PM CDT documented in this encounter Plan of Treatment Not on file documented as of this encounter Visit Diagnoses Not on filedocumented in this encounter
--- OUTSIDE RECORDS SUMMARY | 2025-04-14 11:18 | XMS_ITS | Encounter Summary ---
Author Organization [employer] ([place], [place], [place], [place], [place]) Address [address] [place] [address] Care Team Providers Care Traffic Rate Analyst Name Role Phone Unavailable Primary Care Provider Unavailabl e Encounter Details Date Type Department Care Team (Late st Contact Info) Description 09/30/2020 Transcribed Document [facility] [place] Medicine [address] [place] [address] ProviderRadha MD [address] [place] [address] Social History Tobacco Use Types [...] gross volume overload, has been transferred to [facility] from [facility] with hyponatremia. The patient has [...] or illicit drug use. Currently lives at retirement. FAMILY HISTORY: Dad currently from [place]. No family history of kidney disease. PHYSICAL [...] pedal edema. No cyanosis. Peripheral pulses palpable. PAIRING MACHINE OPERATOR: No focal deficit noted grossly. Cranial nerves [...] We will follow along with other physicians. /[id number] Anabel Spring MD MA/JOHANNA / NGUYỄN / MODL /[id number] Electronically signed by Angela, [facility] Conversion Lay Out Helper Cerner at 08/02/2022 6:13 PM CDT documented in this encounter Plan of Treatment Not on file documented as of this encounter Visit Diagnoses Not on filedocumented in this encounter
--- OUTSIDE RECORDS SUMMARY | 2025-04-14 11:18 | XMS_ITS | Encounter Summary ---
Author Organization [employer] ([place], [place], [place], [place], [place]) Address [address] [place] [address] Care Team Providers Care Accounting Recruiter Name Role Phone Unavailable Primary Care Provider Unavailabl e Encounter Details Date Type Department Care Team (Late st Contact Info) Description 10/06/2020 Transcribed Document [facility] [place] [address] [place] [address] ProviderRadha MD [address] [place] [...]
== END 2025-04-03 23:59 | disposition home or self-care (01) ==
LOC: LAB.DROPOF 04-14 11:13
PROVIDERS: PCP Nurse Practitioner Family; Visit Provider Nurse Practitioner
DX: R52 Pain, unspecified (principal)
CPT/HCPCS: 87631

== ENCOUNTER 2025-04-13 13:00 | Outpatient (CLI) | payer MEDICARE, MEDICAID, SELFPAY ==
[2025-04-13 20:35] LABS: Coronavirus 19, PCR Not Detected (NotDetected); Influenza A, PCR Not Detected (NotDetected); Influenza B, PCR Not Detected (NotDetected)
== END 2025-04-13 23:59 | disposition home or self-care (01) ==
LOC: LAB.DROPOF 05-01 12:51
PROVIDERS: PCP Nurse Practitioner Family; Visit Provider Nurse Practitioner
DX: R52 Pain, unspecified (principal); J06.9 Acute upper respiratory infection, unspecified
CPT/HCPCS: 87631